=== PATIENT | female | born 1975 | race Caucasian/White ===

== ENCOUNTER 2020-05-14 15:15 | Outpatient (REF) | payer MEDICARE, MEDICAID, SELFPAY | END 2020-05-14 15:16 | disposition home or self-care (01) | LOC: HO.LAB 15:15 | PROVIDERS: PCP Internal Medicine; Visit Provider Internal Medicine | DX: Z20.828 Contact with and (suspected) exposure to other viral communicable diseases (principal) | CPT/HCPCS: 87635 ==

== ENCOUNTER 2020-05-22 07:16 | Outpatient (REF) | payer MEDICARE, MEDICAID, SELFPAY ==
--- NOTE | 2020-05-22 07:22 | CT_ITS ---
EXAMINATION: CT SINUS WITHOUT CONTRAST CLINICAL INFORMATION: Chronic sinusitis. COMPARISON: None. TECHNIQUE: Axial 2 mm thin and reformatted 2 minutes in sagittal coronal images of sinuses were obtained without contrast. This CT examination was performed using dose optimization techniques as appropriate, variously including the following: *Automated exposure control *Adjustment of mA and/or kV according to patient size (this includes techniques or standardized protocols for targeted exams where dose is matched to indication/reason for exam; i.e. extremities or head) *Use of iterative reconstruction technique DLP: 92 mGy-cm. FINDINGS: The paranasal sinuses are well aerated and clear. Bilateral ostiomeatal complex and frontoethmoidal recesses are widely patent. There is minimal radha bullosa of bilateral middle turbinates. Mild paradoxical left middle toe but it is noted. There is mild deviation of nasal septum to the right with a small bony spur. The nasal cavity and the nasopharyngeal airway is widely patent. ADDITIONAL RELEVANT FINDINGS: The TMJs articulate normally. There is mild spurring along the left lateral mandibular condyle and TM joint from degenerative changes. The orbits and skull base soft tissues are unremarkable. The middle ear cavities and mastoid air cells are clear. Limited evaluation demonstrates no acute intracranial findings. CT/CT sinus wo con IMPRESSION: Clear sinuses. Mild deviation of nasal septum to the right with a small bony spur. Paradoxical left middle turbinate and mild radha bullosa of bilateral middle turbinates.
== END 2020-05-22 07:17 | disposition home or self-care (01) ==
LOC: HO.CT 07:16
PROVIDERS: Visit Provider Internal Medicine
DX: J32.9 Chronic sinusitis, unspecified (principal)
CPT/HCPCS: 70486

== ENCOUNTER 2020-09-24 10:11 | Outpatient (REF) | payer MEDICARE, MEDICAID, SELFPAY ==
--- NOTE | ~2020-09-24 | XR_ITS ---
EXAMINATION: XR ANKLE, RIGHT CLINICAL INFORMATION: Pain in the ankle COMPARISON: 02/28/2019 TECHNIQUE: AP, lateral, and mortise views of the right ankle. FINDINGS: No fracture or dislocation. The ankle mortise is congruent. No ankle joint effusion. The soft tissues are unremarkable. Small plantar heel spur which is similar to prior. XR/XR ankle RT 2V IMPRESSION: No acute abnormality. Small plantar heel spur.
== END 2020-09-24 10:12 | disposition home or self-care (01) ==
LOC: HO.XRAY 10:11
PROVIDERS: PCP Internal Medicine; Visit Provider Internal Medicine
DX: M25.571 Pain in right ankle and joints of right foot (principal)
CPT/HCPCS: 73600

== ENCOUNTER 2021-01-03 20:34 | Emergency (ER) | payer MEDICARE, MEDICAID, SELFPAY ==
--- NOTE | ~2021-01-03 | XR_ITS ---
EXAMINATION: XR CHEST CLINICAL INFORMATION: Left chest wall pain. COMPARISON: None TECHNIQUE: 2 views of the chest were obtained. FINDINGS: No significant abnormality is noted involving the heart, lungs, mediastinum, bony thorax or soft tissues. XR/XR chest 2V IMPRESSION: Unremarkable chest examination.
[2021-01-03 21:05] VITALS: BP 119/48; PULSE 86; RESP 18; TEMP 36.6; O2SAT 97; BMI 32.3
--- NOTE | 2021-01-03 22:48 | ED.GENADULT ---
HPI - General Adult General Chief complaint: General Medical Stated complaint: back pain Time Seen by Provider: 01/03/21 21:58 Source: patient Mode of arrival: ambulatory History of Present Illness HPI narrative: This is a 45-year-old female with chronic fibromyalgia who presents with left shoulder blade pain that she states feels like a muscle spasm and she has had multiple attempts by her chiropractor to resolve some of the spasm. She states the pain started on Thursday and she has tried her muscle spasm medications that she has been prescribed without success as well as [id number] Tylenol/ibuprofen. Patient states that the pain became much worse this afternoon and has not been associated with fever, chills, nausea, vomiting, abdominal pain, but states she has had some urinary burning. Related Data Home Medications Medication Instructions Recorded Confirmed butalbital 50 mg-acetaminophen 300 cap PO 10/10/20 mg-caffeine 40 mg-codeine 30 mg cap clonazepam 0.5 mg tablet 0.5 mg PO BEDTIME 10/10/20 ibuprofen 800 mg tablet 800 mg PO TID PRN 10/10/20 Previous Rx's Medication Instructions Recorded cyclobenzaprine 10 mg tablet 10 mg PO BEDTIME #90 tab 07/16/20 varenicline 0.5 mg (11)-1 mg (42) See Rx Instructions PO PER PKG DIR 07/16/20 tablets in a dose pack #53 ea Allergies Allergy/AdvReac Type Severity Reaction Status Date / Time topiramate [From TOPAMAX] Allergy Mild NAUSEA & Verified 12/18/20 13:29 VOMITING divalproex sodium AdvReac Unknown NAUSEA & Verified 12/18/20 13:29 [From DEPAKOTE] VOMITING Review of Systems Review of Systems: Pertinent positives and negatives as stated in HPI 10 point review of systems is otherwise negative. [facility] Past Medical History Source: nursing notes reviewed Medical History Anxiety Fibromyalgia Migraine Restless leg syndrome Surgical History H/O LEEP H/O rectal polypectomy History of colectomy History of hernia repair History of surgery History of tonsillectomy History of umbilical hernia repair History of wisdom tooth extraction Family History Family History Father CVD (cardiovascular disease) Myocardial infarction Mother Seizure Dementia Chronic mental illness Sister In good health Son In good health Social History Social History Alcohol intake: never Years Smoked: 15 Advance Directives: No Advance Directives Information Provided: Yes Patient : No Physical Exam Vital Signs: Vital Signs: Last Vital Signs Temp 97.8 F 01/03/21 21:05 Pulse 84 01/03/21 23:41 Resp 16 01/03/21 23:41 BP 110/42 L 01/03/21 23:41 Pulse Ox 100 01/03/21 23:41 Body Mass Index 32.3 VITAL SIGNS: Reviewed. GENERAL: Well developed, well nourished, in no acute distress. HEAD: Normocephalic/atraumatic EYES: PERRLA, EOMI OROPHARYNX: no oral lesions noted, posterior pharynx clear LUNGS: Normal breath sounds. No adventitious sounds or accessory muscle use. SpO2<97> CARDIOVASCULAR: Regular rate and rhythm without noted murmurs ABDOMEN: Soft, non-tender, non-distended with bowel sounds. BACK: No CVA tenderness, spasm noted along the inferior aspect of the left scapula, but no noted decrease in range of motion at the left shoulder. NEUROLOGIC: Alert and oriented x 4. Course Course Course Narrative: 45-year-old female with history and clinical presentation consistent with muscle spasm and doubt any pneumonia, shoulder dislocation. Will check urine and obtain a chest x-ray as well as provide combination analgesics. Review of all investigations negative for any acute findings, these results were discussed with the patient at bedside and on re-evaluation she has had improvement of her discomfort. She was discharged home in stable condition with instructions to follow-up with her primary care provider. Medical Decision Making Lab Data Labs: Lab Results 01/03/21 01/03/21 Range/Units 22:53 22:53 Urine Color STRAW Urine Appearance CLEAR Urine pH 6.5 (5.0-8.0) Ur Specific [place] <= 1.005 (1.005-1.025) Urine Protein NEG (NEG-TRACE) MG/DL Urine Glucose (UA) NEG (NEG) MG/DL Urine Ketones NEG (NEG) MG/DL Urine Blood NEG (NEG) Urine Nitrite NEG (NEG) Ur Leukocyte Esterase NEG (NEG) Urine Test NEGATIVE (NEGATIVE) Discharge Plan Discharge Clinical Impression: Muscle spasm Patient Disposition: Home, Self-Care Instructions: Muscle Spasm (ED) Additional Instructions: 1. Resume all home medications as prescribed. 2. Tylenol 1000 mg, orally, every 6 hours as needed for pain control. Do not exceed 4000 mg within 24 hours. 3. Ibuprofen 400 mg, orally with milk or food, every 6 hours as needed for pain control. You may take this medication in combination with the Tylenol for additional symptom relief. 4. Lidocaine patch, these are available [id number] and should be apply to area of maximal pain as directed on the outside packaging. 5. Please continue to stretch that muscle to help relieve the spasm. 6. Please follow-up with primary care provider in the next 2-3 days for re-evaluation. Return to the ER for any acute worsening of symptoms. Prescriptions: No Action cyclobenzaprine 10 mg tablet 10 mg PO BEDTIME Qty: 90 RF: 8 Chantix Starting Month Box 0.5 mg (11)- 1 mg (42) tablets,dose pack See Rx Instructions PO PER PKG DIR Qty: 53 RF: 4 clonazepam 0.5 mg tablet 0.5 mg PO BEDTIME RF: 0 ibuprofen 800 mg tablet 800 mg PO TID PRNRF: 0 [id number] [id number] mg capsule PO RF: 0 Referrals: Vidal Méndez MD [Primary Care Provider] - 2 days (Left scapular muscle spasm)
[2021-01-03 23:02] LABS: Glucose Urine UA NEG (NEG); Leukocyte Esterase Urine NEG (NEG); Nitrite Urine NEG (NEG); PH 6.5 (5.0-8.0); Specific Gravity - Urine <= 1.005 (1.005-1.025); Urine Blood NEG (NEG); Urine Ketones NEG (NEG); Urine Protein NEG (NEG-TRACE)
[2021-01-03 23:03] LABS: Appearance Urine CLEAR; Color Urine STRAW
[2021-01-03] MEDS: Ketorolac Tromethamine 15 MG/ML VIAL IM (23:03)
[2021-01-03] MEDS: Acetaminophen 325 MG TABLET 975 MG PO (23:03)
[2021-01-03] MEDS: Lidocaine 4 % Patch ADH..PATCH 1 PATCH TRANSDERMA (23:04)
[2021-01-03 23:06] LABS: UPreg QC Valid YES; Urine Pregnancy NEGATIVE (NEGATIVE)
[2021-01-03 23:41] VITALS: BP 110/42; PULSE 84; RESP 16; O2SAT 100
== END 2021-01-04 00:05 | disposition home or self-care (01) ==
PROVIDERS: Emergency Provider Student in an Organized Health Care Education/Training Program; PCP Internal Medicine
DX: M62.838 Other muscle spasm (principal); R07.89 Other chest pain; M79.7 Fibromyalgia; Z79.899 Other long term (current) drug therapy
CPT/HCPCS: 71046; 81003; 81025; 96372; 99284; J1885

== ENCOUNTER 2021-02-04 12:34 | Outpatient (REF) | payer MEDICARE, MEDICAID, SELFPAY ==
[2021-02-04 17:52] LABS: Glucose Urine UA NEG (NEG); Leukocyte Esterase Urine NEG (NEG); Nitrite Urine NEG (NEG); Specific Gravity - Urine <= 1.005 (1.005-1.025); Urine Blood 1+ (NEG); Urine Ketones NEG (NEG); Urine Protein NEG (NEG-TRACE)
[2021-02-04 17:56] LABS: Appearance Urine CLEAR; Color Urine YELLOW
[2021-02-04 18:07] LABS: Squamous Epithelial Cell Urine 2+ /LPF; WBC Urine 0 /HPF (0-4)
== END 2021-02-04 12:35 | disposition home or self-care (01) ==
LOC: HO.LAB 12:34
PROVIDERS: PCP Internal Medicine; Visit Provider Internal Medicine
DX: R30.9 Painful micturition, unspecified (principal)
CPT/HCPCS: 81001; 81003

== ENCOUNTER 2021-05-10 15:14 | Outpatient (REF) | payer MEDICARE, MEDICAID, SELFPAY ==
--- NOTE | ~2021-05-10 | MR_ITS ---
EXAMINATION: MR CERVICAL SPINE WITHOUT CONTRAST CLINICAL INFORMATION: Cervical myelopathy. Bilateral hyperreflexia and weakness. COMPARISON: None available. TECHNIQUE: MRI of the cervical spine was performed using routine sequences without contrast. FINDINGS: The cervical vertebral bodies maintain normal heights and alignment. No bone marrow edema is seen. There is mild disc height loss at C5-C6 and C6-C7. The cervical cord signal appears normal. The spinal canal appears capacious. The imaged portions of the intracranial contents appear normal. The extraspinal soft tissues appear normal. SPINAL LEVELS: C2-C3: No posterior disc abnormality. Mild to moderate left facet arthropathy. No spinal canal or neural foraminal stenosis. C3-C4: No posterior disc abnormality. Moderate left facet arthropathy. No spinal canal or neural foraminal stenosis. C4-C5: No posterior disc abnormality. No spinal canal or neural foraminal stenosis. C5-C6: Disc bulging with mild facet arthropathy. No spinal canal or neural foraminal stenosis. C6-C7: Disc osteophyte complex asymmetric to the right causing mild flattening of the ventral thecal sac. No spinal canal or neural foraminal stenosis. C7-T1: No posterior disc abnormality. No spinal canal or neural foraminal stenosis. MR/MR cervical spine wo con IMPRESSION: Mild degenerative spondylosis including at C5-C6 and C6-C7 but without significant narrowing of the spinal canal or neural foramina. No cord signal abnormality.
== END 2021-05-10 15:15 | disposition home or self-care (01) ==
LOC: HO.MRI 15:14
PROVIDERS: Visit Provider Psychiatry & Neurology Neurology
DX: G95.9 Disease of spinal cord, unspecified (principal)
CPT/HCPCS: 72141

== ENCOUNTER 2021-05-31 17:57 | Outpatient (REF) | payer MEDICARE, MEDICAID, SELFPAY ==
--- NOTE | ~2021-05-31 | MR_ITS ---
EXAMINATION: MR LUMBAR SPINE WITHOUT CONTRAST CLINICAL INFORMATION: Lumbar radiculopathy. COMPARISON: MRI scan of the lumbar spine 03/18/2016. CT scan of the lumbar spine 08/09/2019. TECHNIQUE: MRI of the lumbar spine was obtained using routine sequences without contrast. FINDINGS: VERTEBRAL BODIES AND PARASPINAL STRUCTURES: There is anatomic alignment of the vertebral bodies. There is mild narrowing of intervertebral disc height at L4-L5 with loss of signal. Vertebral body heights are maintained, and no fractures are demonstrated. Overall, marrow signal is homogenous. The visualized retroperitoneal structures are unremarkable. The study partially redemonstrates right adnexal cysts. CONUS MEDULLARIS AND CAUDA EQUINA: Normal, terminating at the level of L1-L2. The lower thoracic spinal cord has normal signal. The cauda equina nerve roots appear normal. The study redemonstrates mild fatty signal in a non-thickened filum terminale. SPINAL LEVELS: L1-L2: The facet joints appear normal. Disc contour is normal. There is no central stenosis or foraminal narrowing. L2-L3: There is mild bilateral facet arthropathy. Disc contour is normal. There is no central stenosis or foraminal narrowing. L3-L4: There is mild bilateral facet arthropathy. Disc contour is normal. There is no central stenosis or foraminal narrowing. L4-L5: There is mild to moderate bilateral facet arthropathy, not significantly changed compared to prior imaging. There is a small diffuse disc bulge with an annular fissure with mild flattening of the ventral thecal sac. The neural foramina are patent and there is no central stenosis. L5-S1: There is moderate bilateral facet arthropathy. Posterior disc contour is normal. There is no central stenosis and the neural foramina are patent bilaterally. MR/MR lumbar spine wo con IMPRESSION: 1. The study redemonstrates facet arthropathy at L4-L5 and there is a diffuse disc bulge with mild flattening of the ventral thecal sac. There is no central stenosis or foraminal narrowing. Mild facet arthropathic changes are demonstrated at other levels as described above. 2. The study redemonstrates partially visualized right adnexal cysts.
== END 2021-05-31 17:58 | disposition home or self-care (01) ==
LOC: HO.MRI 17:57
PROVIDERS: Visit Provider Psychiatry & Neurology Neurology
DX: M54.16 Radiculopathy, lumbar region (principal)
CPT/HCPCS: 72148

== ENCOUNTER 2021-08-08 11:24 | Outpatient (REF) | payer MEDICARE, MEDICAID, SELFPAY ==
--- NOTE | ~2021-08-08 | XR_ITS ---
EXAMINATION: XR DORSAL SPINE CLINICAL INFORMATION: Dorsalis COMPARISON: 2013 TECHNIQUE: Frontal lateral and swimmer's view. FINDINGS: Mild spondylosis is evident by narrowing of disc spaces and developed small osteophyte from the edges of endplates. There is no evidence of fracture or dislocation. The vertebral bodies maintain normal height and alignment. The paravertebral soft tissues are unremarkable. Included adjacent lungs are clear. XR/XR thoracic spine 2V IMPRESSION: No fracture Narrowing of intervertebral disc spaces suggest underlying degenerative disc disease.
== END 2021-08-08 11:25 | disposition home or self-care (01) ==
LOC: HO.XRAY 11:24
PROVIDERS: PCP Internal Medicine; Visit Provider Internal Medicine
DX: M54.9 Dorsalgia, unspecified (principal)
CPT/HCPCS: 72070

== ENCOUNTER 2021-08-19 18:01 | Outpatient (REF) | payer MEDICARE, MEDICAID, SELFPAY ==
--- NOTE | ~2021-08-19 | MR_ITS ---
EXAMINATION: MR THORACIC SPINE WITHOUT CONTRAST CLINICAL INFORMATION: Dorsalgia, unspecified. COMPARISON: None TECHNIQUE: MRI of the thoracic spine was obtained using routine sequences without contrast. FINDINGS: The thoracic vertebral bodies maintain normal heights and alignment. Mild disc height loss is seen within the mid thoracic spine. No bone marrow edema is seen. The thoracic cord signal appears normal. A small left paracentral protrusion is seen at T7-T8. No other disc herniation is seen. The thoracic spinal canal and neural foramina are widely patent. The extraspinal soft tissues are unremarkable. MR/MR thoracic spine wo con IMPRESSION: No significant abnormality in the thoracic spine. No spinal canal or neural foraminal stenosis.
== END 2021-08-19 18:02 | disposition home or self-care (01) ==
LOC: HO.MRI 18:01
PROVIDERS: Visit Provider Internal Medicine
DX: M54.9 Dorsalgia, unspecified (principal)
CPT/HCPCS: 72146

== ENCOUNTER 2021-09-28 07:38 | Outpatient (REF) | payer MEDICARE, MEDICAID, SELFPAY ==
[2021-09-28 11:20] LABS: Hematocrit 42.1 % (37.0-47.0); Hemoglobin 13.7 g/dl (12.0-16.0); Mean Corpuscular HGB Conc 32.5 g/dl (31.0-35.0); Mean Corpuscular Hemoglobin 29.7 pg (27.0-33.0); Mean Corpuscular Volume 91.3 fL (80.0-98.0); Mean Platelet Volume 9.6 fL (9.4-12.3); Platelet Count 341 X10*3/uL (160-400); Red Blood Count 4.61 X10*6/uL (4.20-5.50); White Blood Count 8.3 X10*3/uL (4.8-10.8)
[2021-09-28 11:23] LABS: Alanine Aminotransferase 10 U/L (0-31); Alkaline Phosphatase 74 U/L (39-117); Anion Gap 10 (12-20); Aspartate Amino Transferase 9 U/L (5-31); Bilirubin Total 0.4 mg/dL (0.0-1.0); Blood Urea Nitrogen 11 mg/dL (9-16); Calcium 9.3 mg/dL (8.4-10.2); Carbon Dioxide 24 mmol/L (22-29); Chloride 106 mmol/L (96-108); Cholesterol 277 mg/dL; Estimated Glomerular Filt Rate > 60; Glucose Fasting 93 mg/dL (60-99); HDL Cholesterol 43 mg/dL; LDL Cholesterol Calculated 203 mg/dl; Potassium 4.2 mmol/L (3.3-5.1); Sodium 136 mmol/L (135-145); Total Protein 6.2 g/dL (6.5-8.0); Triglycerides 158 mg/dL
[2021-09-28 11:31] LABS: Estimated Average Glucose 103 mg/dL; Hemoglobin A1c % 5.2 %
[2021-09-28 11:48] LABS: TSH reflex Free T4 0.61 uIU/mL (0.32-4.0)
[2021-09-30 04:35] LABS: HBS Num1 0.04 mIU/mL (0-7.99); HBc Num1 0.08 S/CO (0.00-0.79); Hepatitis B Core Antibody Nonreactive (Nonreactive); ~Hepatitis B Surface Antibody NONREACTIVE (Nonreactive)
[2021-09-30 04:42] LABS: Hepatitis B Surface Antigen Negative (Negative)
[2021-09-30 17:46] LABS: Rubella IgG Antibody 1.44 Index; Rubeola IgG (Measles) <13.50 AU/mL; Varicella IgG Antibody <135.00 index
== END 2021-09-28 07:39 | disposition home or self-care (01) ==
LOC: HO.HMGCLDS 07:38
PROVIDERS: Visit Provider Physician Assistant
DX: Z01.84 Encounter for antibody response examination (principal); Z13.29 Encounter for screening for other suspected endocrine disorder; Z13.220 Encounter for screening for lipoid disorders
CPT/HCPCS: 36415; 80053; 80061; 83036; 84443; 85027; 86704; 86706; 86735; 86762; 86765; 86787; 87340

== ENCOUNTER 2021-09-30 07:35 | Outpatient (REF) | payer MEDICARE, MEDICAID, SELFPAY ==
[2021-10-02 18:51] LABS: TS Negative Control Passed; TS Panel A 1; TS Panel B 3; TS Positive Control Passed; TSpotTB Negative (Negative)
== END 2021-09-30 07:36 | disposition home or self-care (01) ==
LOC: HO.HMGCLDS 07:35
PROVIDERS: Visit Provider Physician Assistant
DX: Z01.84 Encounter for antibody response examination (principal)
CPT/HCPCS: 36415; 86481

== ENCOUNTER 2021-11-05 16:25 | Outpatient (REF) | payer MEDICARE, MEDICAID, SELFPAY ==
[2021-11-05 16:35] LABS: MANUAL DIFF FLAG NO
[2021-11-05 16:59] LABS: Basophils Percent Auto 0.4 % (0-2); Eosinophils Absolute Auto 0.1 X10*3/uL (0.0-0.4); Eosinophils Percent Auto 0.7 % (0-4); Hematocrit 42.7 % (37.0-47.0); Hemoglobin 14.4 g/dl (12.0-16.0); Imm Gran Abs Auto 0.04 X10*3/uL (0.00-0.03); Imm Gran Pct Auto 0.4 % (0.0-0.4); Lymphocytes Absolute Auto 3.2 X10*3/uL (1.2-4.9); Lymphocytes Percent Auto 29.6 % (20-40); Mean Corpuscular HGB Conc 33.7 g/dl (31.0-35.0); Mean Corpuscular Hemoglobin 30.4 pg (27.0-33.0); Mean Corpuscular Volume 90.3 fL (80.0-98.0); Mean Platelet Volume 9.6 fL (9.4-12.3); Monocytes Absolute Auto 0.6 X10*3/uL (0.1-1.2); Monocytes Percent Auto 5.3 % (2-11); Neutrophils Absolute Auto 6.8 x10*3/uL (2.0-8.3); Neutrophils Percent Auto 63.6 % (45-73); Platelet Count 276 X10*3/uL (160-400); Red Blood Count 4.73 X10*6/uL (4.20-5.50); Red Cell Distribution Width 13.8 % (11.0-16.0); White Blood Count 10.7 X10*3/uL (4.8-10.8)
[2021-11-05 17:20] LABS: Alanine Aminotransferase 19 U/L (0-31); Albumin Level 4.5 g/dL (3.5-5.0); Alkaline Phosphatase 93 U/L (39-117); Anion Gap 11 (12-20); Aspartate Amino Transferase 13 U/L (5-31); Bilirubin Total 0.4 mg/dL (0.0-1.0); Blood Urea Nitrogen 7 mg/dL (9-16); Calcium 9.9 mg/dL (8.4-10.2); Carbon Dioxide 28 mmol/L (22-29); Chloride 104 mmol/L (96-108); Cholesterol 205 mg/dL; Estimated Glomerular Filt Rate > 60; Glucose Fasting 98 mg/dL (60-99); HDL Cholesterol 50 mg/dL; LDL Cholesterol Calculated 115 mg/dl; Potassium 4.1 mmol/L (3.3-5.1); Sodium 139 mmol/L (135-145); Total Protein 6.9 g/dL (6.5-8.0); Triglycerides 202 mg/dL
[2021-11-05 17:35] LABS: Thyroid Stimulating Hormone 1.46 uIU/mL (0.32-4.0)
[2021-11-05 17:40] LABS: TSH reflex Free T4 1.51 uIU/mL (0.32-4.0)
== END 2021-11-05 16:26 | disposition home or self-care (01) ==
LOC: HO.LAB 16:25
PROVIDERS: Internal Medicine; PCP Physician Assistant; Visit Provider Physician Assistant
DX: Z00.00 Encounter for general adult medical examination without abnormal findings (principal); E03.9 Hypothyroidism, unspecified; E78.5 Hyperlipidemia, unspecified
CPT/HCPCS: 36415; 80053; 80061; 84443; 85025

== ENCOUNTER 2022-02-04 09:21 | Outpatient (REF) | payer MEDICARE, MEDICAID, SELFPAY ==
--- NOTE | ~2022-02-04 | XR_ITS ---
EXAMINATION: XR ABDOMEN COMPLETE CLINICAL INDICATION: Diverticulitis of interest spine. COMPARISON: None TECHNIQUE: 2 views of the abdomen. FINDINGS: There is scattered stool and gas in the colon without distention. No organomegaly. No radiopaque calculi. No gross bony abnormality. XR/XR abdomen 3V IMPRESSION: Minimal constipation.
[2022-02-04 10:37] LABS: Hematocrit 39.6 % (37.0-47.0); Hemoglobin 13.1 g/dl (12.0-16.0); Mean Corpuscular HGB Conc 33.1 g/dl (31.0-35.0); Mean Corpuscular Hemoglobin 30.6 pg (27.0-33.0); Mean Corpuscular Volume 92.5 fL (80.0-98.0); Mean Platelet Volume 9.3 fL (9.4-12.3); Platelet Count 263 X10*3/uL (160-400); Red Blood Count 4.28 X10*6/uL (4.20-5.50); Red Cell Distribution Width 14.3 % (11.0-16.0); White Blood Count 10.2 X10*3/uL (4.8-10.8)
[2022-02-04 11:05] LABS: Anion Gap 12 (12-20); Blood Urea Nitrogen 12 mg/dL (9-16); Calcium 8.7 mg/dL (8.4-10.2); Carbon Dioxide 25 mmol/L (22-29); Chloride 105 mmol/L (96-108); Estimated Glomerular Filt Rate > 60; Glucose Random 85 mg/dL (60-115); Lipase 14 U/L (8-78); Potassium 4.3 mmol/L (3.3-5.1); Sodium 138 mmol/L (135-145)
[2022-02-04 13:13] LABS: Appearance Urine CLEAR; Color Urine YELLOW; Glucose Urine UA NEG (NEG); Leukocyte Esterase Urine NEG (NEG); Nitrite Urine NEG (NEG); PH 6.5 (5.0-8.0); Specific Gravity - Urine <= 1.005 (1.005-1.025); Urine Blood NEG (NEG); Urine Ketones NEG (NEG); Urine Protein NEG (NEG-TRACE)
[2022-02-06 14:46] LABS: CRP High Sensitivity >10.0 mg/L
== END 2022-02-04 09:22 | disposition home or self-care (01) ==
LOC: HO.LAB 09:21
PROVIDERS: PCP Physician Assistant; Visit Provider Physician Assistant
DX: K57.92 Diverticulitis of intestine, part unspecified, without perforation or abscess without bleeding (principal); R30.0 Dysuria
CPT/HCPCS: 36415; 74021; 80048; 81003; 83690; 85027; 86141

== ENCOUNTER 2022-02-19 08:33 | Outpatient (REF) | payer MEDICARE, MEDICAID, SELFPAY ==
[2022-02-19 09:58] LABS: Leukocytes Stool Qualitative NEGATIVE (NEGATIVE)
== END 2022-02-19 08:34 | disposition home or self-care (01) ==
LOC: HO.LNP 08:33
PROVIDERS: Visit Provider Internal Medicine
DX: R19.7 Diarrhea, unspecified (principal)
CPT/HCPCS: 89055

== ENCOUNTER 2022-04-11 13:11 | Outpatient (REF) | payer OTHER, MEDICARE, MEDICAID, SELFPAY ==
--- NOTE | ~2022-04-11 | XR_ITS ---
EXAMINATION: XR ANKLE, LEFT CLINICAL INFORMATION: M25.572 - Pain in left ankle and joints of left foot COMPARISON: Radiographs left ankle and foot 02/28/2019 TECHNIQUE: AP, lateral, and mortise views of the left ankle. FINDINGS: No fracture or dislocation. Plantar calcaneal spurring. Subtalar joint unremarkable. Ankle mortise is symmetric. The malleoli appear intact. Mild spurring and medial aspect medial malleolus stable from prior radiographs 2019. No visible ankle capsular effusion. XR/XR ankle LT min 3V IMPRESSION: No fracture or arthropathy. Chronic plantar calcaneal spur.
--- NOTE | ~2022-04-11 | XR_ITS ---
EXAMINATION: XR WRIST, LEFT CLINICAL INFORMATION: M25.532 - Pain in left wrist. COMPARISON: Radiographs left breast 11/02/2013 TECHNIQUE: PA, lateral, and oblique views of the left wrist. FINDINGS: No fracture or dislocation. Normal bony mineralization. Pronator quadratus fat pad normal. No joint narrowing or erosive change. XR/XR wrist LT min 3V IMPRESSION: Normal left wrist.
== END 2022-04-11 13:12 | disposition home or self-care (01) ==
LOC: HO.HMGCX 13:11
PROVIDERS: PCP Physician Assistant
DX: M25.532 Pain in left wrist (principal); M25.572 Pain in left ankle and joints of left foot
CPT/HCPCS: 73110; 73610

== ENCOUNTER 2022-08-08 09:20 | Outpatient (REF) | payer MEDICARE, MEDICAID, SELFPAY ==
[2022-08-08 10:43] LABS: Hematocrit 44.1 % (37.0-47.0); Hemoglobin 14.5 g/dl (12.0-16.0); Mean Corpuscular HGB Conc 32.9 g/dl (31.0-35.0); Mean Corpuscular Hemoglobin 30.6 pg (27.0-33.0); Mean Platelet Volume 9.4 fL (9.4-12.3); Platelet Count 322 X10*3/uL (160-400); Red Blood Count 4.74 X10*6/uL (4.20-5.50); Red Cell Distribution Width 14.3 % (11.0-16.0); White Blood Count 16.8 X10*3/uL (4.8-10.8)
[2022-08-08 11:30] LABS: Alanine Aminotransferase 19 U/L (0-31); Albumin Level 4.3 g/dL (3.5-5.0); Alkaline Phosphatase 66 U/L (39-117); Anion Gap 11 (12-20); Aspartate Amino Transferase 11 U/L (5-31); Bilirubin Total 0.2 mg/dL (0.0-1.0); Blood Urea Nitrogen 16 mg/dL (9-16); Calcium 9.5 mg/dL (8.4-10.2); Carbon Dioxide 28 mmol/L (22-29); Chloride 103 mmol/L (96-108); Estimated Glomerular Filt Rate > 60; Glucose Random 69 mg/dL (60-115); Sodium 138 mmol/L (135-145); Total Protein 6.5 g/dL (6.5-8.0)
[2022-08-08 11:35] LABS: TSH reflex Free T4 0.97 uIU/mL (0.32-4.0)
[2022-08-08 11:39] LABS: Influenza A PCR NEGATIVE (Negative); Influenza B PCR NEGATIVE (Negative); Resp Syncy Virus RNA Qual PCR NEGATIVE (Negative); SARS COV2 PCR INHOUSE NEGATIVE (Negative)
== END 2022-08-08 09:21 | disposition home or self-care (01) ==
LOC: HO.10HDL 09:20
PROVIDERS: Visit Provider Nurse Practitioner Family
DX: R50.9 Fever, unspecified (principal); J02.9 Acute pharyngitis, unspecified; R53.83 Other fatigue; Z13.29 Encounter for screening for other suspected endocrine disorder; Z20.822 Contact with and (suspected) exposure to COVID-19
CPT/HCPCS: 0241U; 36415; 80053; 84443; 85027

== ENCOUNTER 2022-08-08 10:40 | Outpatient (REF) | payer MEDICARE, MEDICAID, SELFPAY | END 2022-08-08 10:41 | disposition home or self-care (01) | LOC: HO.LAB 10:40 | PROVIDERS: PCP Physician Assistant; Visit Provider Nurse Practitioner Family | DX: Z13.89 Encounter for screening for other disorder (principal) ==

== ENCOUNTER 2022-08-22 11:05 | Outpatient (REF) | payer MEDICARE, MEDICAID, SELFPAY ==
--- NOTE | ~2022-08-22 | XR_ITS ---
EXAMINATION: XR CHEST CLINICAL INFORMATION: R06.2 - Wheezing COMPARISON: Chest radiographs 01/03/2021, 08/10/2019. CT abdomen 11/30/2019 TECHNIQUE: 2 views of the chest were obtained. FINDINGS: No hyperinflation. No airspace consolidation or groundglass opacity or effusion. The costophrenic sulci are clear. The heart is normal in size. There is tapering at the right cardiophrenic angle consistent with areolar tissue on CT. The hilar contours and visualized bony structures are unremarkable. XR/XR chest 2V IMPRESSION: Lungs clear. No hyperinflation, infiltrate, or effusion.
== END 2022-08-22 11:06 | disposition home or self-care (01) ==
LOC: HO.HMGCX 11:05
PROVIDERS: PCP Physician Assistant; Visit Provider Internal Medicine
DX: R06.2 Wheezing (principal)
CPT/HCPCS: 71046

== ENCOUNTER 2022-11-20 00:14 | Emergency (ER) | payer MEDICARE, MEDICAID, SELFPAY ==
--- NOTE | ~2022-11-20 | CT_ITS ---
EXAMINATION: CT ABDOMEN AND PELVIS WITH CONTRAST CLINICAL INFORMATION: Left lower quadrant pain COMPARISON: 09/02/2019 TECHNIQUE: Multidetector volumetric images were obtained from the superior aspect of the liver through the pubic symphysis following administration 85 mL of Omnipaque 350 intravenous contrast. Sagittal and coronal reformatted images were obtained on the technologist's workstation. Oral contrast: No This CT examination was performed using dose optimization techniques as appropriate, variously including the following: *Automated exposure control *Adjustment of mA and/or kV according to patient size (this includes techniques or standardized protocols for targeted exams where dose is matched to indication/reason for exam; i.e. extremities or head) *Use of iterative reconstruction technique DLP: 658 mGy-cm FINDINGS: LUNG BASES: The visualized lung bases are unremarkable. LIVER, GALLBLADDER, AND BILIARY TREE: The liver is normal in size, shape, and attenuation. No focal hepatic lesion or biliary ductal dilatation is present. The gallbladder is unremarkable with no evidence of radiopaque gallstones, gallbladder wall thickening, or obvious pericholecystic inflammatory changes. PANCREAS: Unremarkable. SPLEEN: Unremarkable. ADRENAL GLANDS: Unremarkable. KIDNEYS AND URETERS: The kidneys are normal in size, shape, and attenuation. Duplicated left renal collecting system. No hydronephrosis, hydroureter, or obstructing calculi seen. No perinephric stranding. BLADDER: Mildly distended and grossly unremarkable. GASTROINTESTINAL TRACT: Suture line is present in the distal sigmoid colon. Colonic diverticulosis is noted. The small and large bowel are otherwise unremarkable without evidence of obstruction or pericolonic inflammatory change. The appendix is unremarkable. No free fluid or free air is seen. ABDOMINAL WALL: Evidence of prior ventral hernia repair, without significant change from prior. LYMPH NODES: Normal. VASCULAR: Unremarkable. PELVIC VISCERA: There is a simple-appearing right adnexal cyst measuring up to 5.0 cm, mildly increased from 08/23/2019. Findings are overwhelmingly likely to represent a benign functional cyst. No follow-up imaging recommended. OSSEOUS STRUCTURES: Unremarkable. CT/CT abdomen pelvis w IV con IMPRESSION: No acute findings identified in the abdomen/pelvis. Colonic diverticulosis without diverticulitis.
[2022-11-20 00:15] VITALS: BP 145/66; PULSE 88; RESP 18; TEMP 35.9; O2SAT 98; BMI 23.6
[2022-11-20 01:49] LABS: MANUAL DIFF FLAG NO
[2022-11-20 01:50] LABS: Basophils Absolute Auto 0.1 X10*3/uL (0.0-0.2); Basophils Percent Auto 0.4 % (0-2); Eosinophils Absolute Auto 0.1 X10*3/uL (0.0-0.4); Eosinophils Percent Auto 0.9 % (0-4); Hematocrit 44.5 % (37.0-47.0); Hemoglobin 15.2 g/dl (12.0-16.0); Imm Gran Abs Auto 0.04 X10*3/uL (0.00-0.03); Imm Gran Pct Auto 0.3 % (0.0-0.4); Lymphocytes Absolute Auto 3.9 X10*3/uL (1.2-4.9); Lymphocytes Percent Auto 32.7 % (20-40); Mean Corpuscular HGB Conc 34.2 g/dl (31.0-35.0); Mean Corpuscular Volume 90.8 fL (80.0-98.0); Mean Platelet Volume 9.5 fL (9.4-12.3); Monocytes Absolute Auto 0.6 X10*3/uL (0.1-1.2); Monocytes Percent Auto 5.1 % (2-11); Neutrophils Absolute Auto 7.2 x10*3/uL (2.0-8.3); Neutrophils Percent Auto 60.6 % (45-73); Platelet Count 309 X10*3/uL (160-400); Red Cell Distribution Width 14.6 % (11.0-16.0); White Blood Count 11.9 X10*3/uL (4.8-10.8)
[2022-11-20 01:51] LABS: Appearance Urine Clear; Color Urine Dark Yellow; Glucose Urine UA Negative (Negative); Leukocyte Esterase Urine Trace (Negative); Nitrite Urine Negative (Negative); PH 6.5 (5.0-9.0); Specific Gravity - Urine 1.025 (1.005-1.025); UMIC TRIGGER UACC YES; Urine Blood Negative (Negative); Urine Ketones 40 mg/dL (Negative); Urine Protein 30 (1+) mg/dL (Neg-Trace)
[2022-11-20 01:56] LABS: Bacteria Urine None Seen (None Seen); Hyaline Casts Urine 0-2 /LPF (0-2); Squamous Epithelial Cell Urine 0-2 /HPF (0-2); WBC Urine 0-5 /HPF (0-5)
[2022-11-20 02:06] LABS: Anion Gap 13 (12-20); Blood Urea Nitrogen 9 mg/dL (9-16); Calcium 9.4 mg/dL (8.4-10.2); Carbon Dioxide 25 mmol/L (22-29); Chloride 107 mmol/L (96-108); Creatinine Clr Calc Pharmacy 101.2; Estimated Glomerular Filt Rate > 60; Glucose Random 101 mg/dL (60-115); Potassium 3.6 mmol/L (3.3-5.1); Sodium 141 mmol/L (135-145)
[2022-11-20 02:07] VITALS: BP 146/59; PULSE 80; RESP 17; TEMP 36.7; O2SAT 95
--- NOTE | 2022-11-20 02:27 | ED.ABDPAIN ---
HPI - Abdominal Pain General Chief Complaint: Abdominal Pain Stated Complaint: chest pain, n/v Time Seen by Provider: 11/20/22 02:15 Source: patient Mode of arrival: ambulatory Limitations: no limitations History of Present Illness HPI narrative: Patient comes to the emergency room complaining of nausea and vomiting for 4 days, also complaining of left lower quadrant pain. Patient states that she has history of diverticulitis. Patient denies diarrhea, no URI or UTI symptoms. Related Data Home Medications Medication Instructions Recorded Confirmed clonazepam 0.5 mg tablet 0.5 mg PO BEDTIME 10/10/20 08/22/22 paroxetine HCl 20 mg tablet (Paxil) 20 mg PO DAILY 08/21/21 08/22/22 diclofenac sodium 75 mg 75 mg PO BID 04/14/22 08/22/22 tablet,delayed release Previous Rx's Medication Instructions Recorded cyclobenzaprine 10 mg tablet 10 mg PO BEDTIME #90 tabs 07/16/20 ipratropium bromide 21 mcg (0.03 2 spray intranasal BID #60 mL 12/02/21 %) nasal spray acetaminophen 650 mg 650 mg PO Q12H PRN pain 90 days 05/15/22 tablet,extended release (Tylenol #180 tabs Arthritis Pain) ibuprofen 800 mg tablet 800 mg PO Q8H PRN fever or pain 90 05/15/22 days #270 tabs azithromycin 250 mg tablet 250 mg PO ONCE 5 days #6 tabs 08/22/22 azithromycin 250 mg tablet 250 mg PO ONCE 5 days #6 tabs 08/22/22 prednisone 10 mg tablet 10 mg PO DAILY 5 days #5 tabs 08/22/22 prednisone 10 mg tablet 10 mg PO DAILY 7 days #7 tabs 08/22/22 loratadine 10 mg tablet 10 mg PO DAILY 90 days #90 tabs 10/02/22 amoxicillin 875 mg-potassium 1 tab PO BID 7 days #14 tabs 11/19/22 clavulanate 125 mg tablet ondansetron 4 mg disintegrating 4 mg PO Q6H PRN nausea and 11/20/22 tablet vomiting #14 tabs Allergies Allergy/AdvReac Type Severity Reaction Status Date / Time topiramate [From TOPAMAX] Allergy Mild NAUSEA & Verified 11/19/22 10:43 VOMITING divalproex sodium AdvReac Unknown NAUSEA & Verified 11/19/22 10:43 [From DEPAKOTE] VOMITING Review of Systems Review of Systems Constitutional : No Weight loss, No Fever, No Chills, No Night Sweats, No Fatigue, No Malaise ENT/Mouth : No Hearing loss, No Ear Pain, No Nasal Congestion, No Sinus Pain, No Hoarseness, No sore throat, No Rhinorrhea, No Swallowing Difficulty Eyes: No Eye Pain, No Swelling, No Redness, No Foreign Body, No Discharge, No Vision Changes Cardiovascular : No Chest Pain, No SOB, No Dyspnea on Exertion, No Orthopnea, No Edema, No Palpitations Respiratory : No Cough, No Sputum, No Wheezing, No Smoke Exposure, No Dyspnea Gastrointestinal : Complaining of nausea and vomiting No Diarrhea, No Constipation, complaining of epigastric and left lower quadrant pain, denies melena Genitourinary : no irregular bleeding, No Dysuria, No Urinary Frequency, No Hematuria, No Urinary Incontinence, No Urgency, No Flank Pain, No Urinary Flow Changes, No Hesitancy Musculoskeletal : No joint pain, No Myalgias, No Joint Swelling Skin : No Skin Lesions, No rash Neuro : No Weakness, No Numbness, No Paresthesias, No Loss of Consciousness, No Dizziness, No Headache Psych : No Anxiety/Panic, No Depression, No SI/HI/AH/VH, No Social Issues, Heme/Lymph: No Bruising, No Bleeding,No Lymphadenopathy Endocrine : No Polyuria, No Polydipsia, No Temperature Intolerance PMFSH Past Medical History Medical History Ankle pain, left Anxiety Fibromyalgia Migraine Obesity Restless leg syndrome Wrist pain, left Surgical History H/O LEEP H/O rectal polypectomy History of colectomy History of hernia repair History of surgery History of tonsillectomy History of umbilical hernia repair History of wisdom tooth extraction Family History Family History Father CVD (cardiovascular disease) Myocardial infarction Mother Seizure Dementia Chronic mental illness Myocardial infarction, Onset Age: 40 Sister In good health Son In good health Other Mental health disorder Social History Social History Housing: Apartment Alcohol intake: current Alcohol intake frequency: holidays/special occasions only Patient Tobacco Use Status: Current everyday Tobacco user Tobacco use type: Cigarette Cigarettes Per Day: 10 Years Smoked: 15 e-Cigarette/Vaping Use: Never Used Second Hand Smoke Exposure: No Advance Directives: No Advance Directives Information Provided: Yes service: No Current occupational status: disabled Cognitive needs: No Hearing needs: No Vision needs: No Physical Exam ED Vital Signs: Vital Signs - 24 hr 11/20/22 00:15 11/20/22 02:07 11/20/22 03:26 Temperature 96.7 F L 98.1 F 97.9 F Pulse Rate 88 80 88 Respiratory Rate 18 17 16 Blood Pressure 145/66 H 146/59 H 137/58 L Pulse Oximetry 98 95 99 Oxygen Delivery Method Room Air Room Air BMI result Body Mass Index 23.6 Const Other: Appearance: Alert. Oriented X3. No acute distress. Eyes: Pupils equal, round and reactive to light. ENT: Pharynx normal. Neck: Normal inspection. Neck supple. No lymph nodes noted. No crepitus CVS: Normal heart rate and rhythm. Pulses normal. Normal S1 and S2 Respiratory: No respiratory distress. Breath sounds normal. No Wheezing. No rales Abdomen: Soft , mild tenderness to palpation in left lower quadrant, no distension, no rebound or guarding Skin: Skin warm and dry. Normal skin color. Normal skin turgor. Extremities: No lower extremity edema. No Lacerations. No Rash Neuro: Oriented X 3. No motor deficit. No sensory deficit. Moving all extremities. No slurred speech. CN 2 through 12 grossly intact Psych: calm, cooperative, normal affect Course Course Course Narrative: Patient's labs and CT scan pending Medical Decision Making Medical Decision Making [facility] Narrative: -I discussed the labs and imaging on the patient, patient likely having a viral syndrome -my interpretation of CT scan, no obstruction, no diverticulitis or perforation Lab Data [facility] Lab Attestation statement: I reviewed the patient's lab results. 11/20/22 01:38 11/20/22 01:38 Labs: Lab Results 11/20/22 11/20/22 11/20/22 Range/Units 01:38 01:38 01:38 WBC 11.9 H (4.8-10.8) X10*3/uL RBC 4.90 (4.20-5.50) X10*6/uL Hgb 15.2 (12.0-16.0) g/dl Hct 44.5 (37.0-47.0) % MCV 90.8 (80.0-98.0) fL MCH 31.0 (27.0-33.0) pg MCHC 34.2 (31.0-35.0) g/dl RDW 14.6 (11.0-16.0) % Plt Count 309 (160-400) X10*3/uL MPV 9.5 (9.4-12.3) fL Immature Gran % (Auto) 0.3 (0.0-0.4) % Neut % (Auto) 60.6 (45-73) % Lymph % (Auto) 32.7 (20-40) % [place] % (Auto) 5.1 (2-11) % Eos % (Auto) 0.9 (0-4) % Baso % (Auto) 0.4 (0-2) % Lymph # (Auto) 3.9 (1.2-4.9) X10*3/uL [place] # (Auto) 0.6 (0.1-1.2) X10*3/uL Eos # (Auto) 0.1 (0.0-0.4) X10*3/uL Baso # (Auto) 0.1 (0.0-0.2) X10*3/uL Abs Immat Gran (auto) 0.04 H (0.00-0.03) X10*3/uL Absolute Neuts (auto) 7.2 (2.0-8.3) x10*3/uL Absolute Nucleated RBC 0.000 (0.0-0.012) X10*3/uL Nucleated RBC % (auto) 0.0 (0.0-0.2) /100WBC Sodium 141 (135-145) mmol/L Potassium 3.6 (3.3-5.1) mmol/L Chloride 107 (96-108) mmol/L Carbon Dioxide 25 (22-29) mmol/L Anion Gap 13 (12-20) BUN 9 (9-16) mg/dL Creatinine 0.71 (0.5-1.4) mg/dL Estim Creat Clear Calc 101.2 Estimated GFR > 60 Random Glucose 101 (60-115) mg/dL Calcium 9.4 (8.4-10.2) mg/dL Total Bilirubin 0.4 (0.0-1.0) mg/dL Direct Bilirubin 0.1 (0.0-0.5) mg/dL AST 14 (5-31) U/L ALT 15 (0-31) U/L Alkaline Phosphatase 92 (39-117) U/L Total Protein 6.7 (6.5-8.0) g/dL Albumin 4.5 (3.5-5.0) g/dL Lipase 16 (8-78) U/L Urine Color Dark Yellow Urine Appearance Clear Urine pH 6.5 (5.0-9.0) Ur Specific [place] 1.025 (1.005-1.025) Urine Protein 30 (1+) H (Neg-Trace) mg/dL Urine Glucose (UA) Negative (Negative) mg/dL Urine Ketones 40 (Negative) mg/dL Urine Blood Negative (Negative) Urine Nitrite Negative (Negative) Ur Leukocyte Esterase Trace H (Negative) Urine RBC 3-5 H (0-2) /HPF Urine WBC 0-5 (0-5) /HPF Ur Squamous Epith Cells 0-2 (0-2) /HPF Urine Bacteria None Seen (None Seen) Hyaline Casts 0-2 (0-2) /LPF Radiology Impression Discussion of test interpretation with radiology: I have reviewed the radiologist's reading. Radiologist Impression: FINDINGS: LUNG BASES: The visualized lung bases are unremarkable.? LIVER, GALLBLADDER, AND BILIARY TREE: The liver is normal in size, shape, and attenuation. No focal hepatic lesion or biliary ductal dilatation is present. The gallbladder is unremarkable with no evidence of radiopaque gallstones, gallbladder wall thickening, or obvious pericholecystic inflammatory changes.? PANCREAS: Unremarkable.? SPLEEN: Unremarkable.? ADRENAL GLANDS: Unremarkable.? KIDNEYS AND URETERS: The kidneys are normal in size, shape, and attenuation. Duplicated left renal collecting system. No hydronephrosis, hydroureter, or obstructing calculi seen. No perinephric stranding. BLADDER: Mildly distended and grossly unremarkable.? GASTROINTESTINAL TRACT: Suture line is present in the distal sigmoid colon. Colonic diverticulosis is noted. The small and large bowel are otherwise unremarkable without evidence of obstruction or pericolonic inflammatory change. The appendix is unremarkable. No free fluid or free air is seen. ABDOMINAL WALL: Evidence of prior ventral hernia repair, without significant change from prior.? LYMPH NODES: Normal. VASCULAR: Unremarkable. PELVIC VISCERA: There is a simple-appearing right adnexal cyst measuring up to 5.0 cm, mildly increased from 08/23/2019. Findings are overwhelmingly likely to represent a benign functional cyst. No follow-up imaging recommended. OSSEOUS STRUCTURES: Unremarkable. CT/CT abdomen pelvis w IV con IMPRESSION: No acute findings identified in the abdomen/pelvis. Colonic diverticulosis without diverticulitis. Medications Administered Discontinued Medications Generic Name Dose Route Start Last Admin Trade Name Freq PRN Reason Stop Dose Admin Iohexol 85 ml 11/20/22 03:08 11/20/22 03:08 Iohexol 350 Mg/Ml 100 Ml Infus..Btl IV 11/20/22 03:09 85 ml ONCE ONE Administration Discharge Plan Discharge Clinical Impression: Abdominal pain, Nausea & vomiting Patient Disposition: Home, Self-Care Instructions: Acute Nausea and Vomiting (ED) Additional Instructions: Please follow-up with your primary care physician tomorrow. If you have any worsening or new symptoms, please return to the emergency room or call 911 Prescriptions: New ondansetron 4 mg tablet,disintegrating 4 mg PO Q6H PRN (Reason: nausea and vomiting) Qty: 14 0RF No Action cyclobenzaprine 10 mg tablet 10 mg PO BEDTIME Qty: 90 8RF ipratropium bromide 21 mcg (0.03 %) spray,non-aerosol 2 spray intranasal BID Qty: 60 0RF loratadine 10 mg tablet 10 mg PO DAILY 90 Days Qty: 90 1RF clonazepam 0.5 mg tablet 0.5 mg PO BEDTIME ibuprofen 800 mg tablet 800 mg PO Q8H PRN (Reason: fever or pain) 90 Days Qty: 270 0RF acetaminophen [Tylenol Arthritis Pain] 650 mg tablet extended release 650 mg PO Q12H PRN (Reason: pain) 90 Days Qty: 180 0RF azithromycin 250 mg tablet 250 mg PO ONCE 5 Days Qty: 6 0RF Rx Instructions: Take 2 tablets today then 1 daily prednisone 10 mg tablet 10 mg PO DAILY 5 Days Qty: 5 0RF prednisone 10 mg tablet 10 mg PO DAILY 7 Days Qty: 7 0RF azithromycin 250 mg tablet 250 mg PO ONCE 5 Days Qty: 6 0RF Rx Instructions: Take 2 tablets today then 1 daily paroxetine HCl [Paxil] 20 mg tablet 20 mg PO DAILY diclofenac sodium 75 mg tablet,delayed release (DR/EC) 75 mg PO BID amoxicillin-pot clavulanate 875-125 mg tablet 1 tab PO BID 7 Days Qty: 14 0RF
[2022-11-20 02:30] LABS: Alanine Aminotransferase 15 U/L (0-31); Albumin Level 4.5 g/dL (3.5-5.0); Alkaline Phosphatase 92 U/L (39-117); Aspartate Amino Transferase 14 U/L (5-31); Bilirubin Direct 0.1 mg/dL (0.0-0.5); Bilirubin Total 0.4 mg/dL (0.0-1.0); Lipase 16 U/L (8-78); Total Protein 6.7 g/dL (6.5-8.0)
[2022-11-20] MEDS: iohexoL 350 MG/ML 100 ML INFUS..BTL 85 ML IV (03:08)
[2022-11-20 03:26] VITALS: BP 137/58; PULSE 88; RESP 16; TEMP 36.6; O2SAT 99
== END 2022-11-20 05:08 | disposition home or self-care (01) ==
PROVIDERS: Emergency Provider Emergency Medicine
DX: R10.9 Unspecified abdominal pain (principal); R11.2 Nausea with vomiting, unspecified
CPT/HCPCS: 36415; 74177; 80048; 80076; 81001; 83690; 85025; Q9967

== ENCOUNTER 2022-11-20 21:27 | Emergency (ER) | payer MEDICARE, MEDICAID, SELFPAY ==
--- NOTE | 2022-11-20 | ECG_ITS ---
Test Reason : CHEST PAIN Blood Pressure : / mmHG Vent. Rate : 098 BPM Atrial Rate : 098 BPM P-R Int : 154 ms QRS Dur : 090 ms QT Int : 364 ms P-R-T Axes : 054 013 064 degrees QTc Int : 464 ms Normal sinus rhythm Cannot rule out Anterior infarct , age undetermined Abnormal ECG When compared with ECG of 09-AUG-2019 23:02, No significant change was found Referred By: Generic ED Physician Electronically Signed By:BASHIR BROTHERS MD
--- NOTE | ~2022-11-20 | XR_ITS ---
EXAMINATION: XR ABDOMEN KUB CLINICAL INDICATION: Bowel obstruction COMPARISON: Abdomen 02/04/2022. CT scan abdomen pelvis 11/20/2022 TECHNIQUE: AP view of the abdomen. FINDINGS: The bowel gas pattern is normal with no evidence of ileus or obstruction. No unusual soft tissue calcifications are noted. The bones are unremarkable. XR/XR abdomen 1V IMPRESSION: Unremarkable examination.
[2022-11-20 21:58] VITALS: BP 119/64; PULSE 90; RESP 18; TEMP 36.7; O2SAT 94; BMI 32.2
[2022-11-20 21:58] LABS: MANUAL DIFF FLAG NO
[2022-11-20 22:00] LABS: Basophils Percent Auto 0.3 % (0-2); Eosinophils Absolute Auto 0.1 X10*3/uL (0.0-0.4); Eosinophils Percent Auto 0.6 % (0-4); Hematocrit 43.8 % (37.0-47.0); Hemoglobin 14.9 g/dl (12.0-16.0); Imm Gran Abs Auto 0.06 X10*3/uL (0.00-0.03); Imm Gran Pct Auto 0.5 % (0.0-0.4); Lymphocytes Absolute Auto 3.8 X10*3/uL (1.2-4.9); Lymphocytes Percent Auto 33.2 % (20-40); Mean Corpuscular Hemoglobin 30.8 pg (27.0-33.0); Mean Corpuscular Volume 90.7 fL (80.0-98.0); Mean Platelet Volume 9.4 fL (9.4-12.3); Monocytes Absolute Auto 0.7 X10*3/uL (0.1-1.2); Monocytes Percent Auto 5.9 % (2-11); Neutrophils Absolute Auto 6.9 x10*3/uL (2.0-8.3); Neutrophils Percent Auto 59.5 % (45-73); Platelet Count 323 X10*3/uL (160-400); Red Blood Count 4.83 X10*6/uL (4.20-5.50); Red Cell Distribution Width 14.6 % (11.0-16.0); White Blood Count 11.5 X10*3/uL (4.8-10.8)
[2022-11-20 22:01] LABS: Appearance Urine Clear; Color Urine Dark Yellow; Glucose Urine UA Negative (Negative); Leukocyte Esterase Urine Trace (Negative); Nitrite Urine Negative (Negative); Specific Gravity - Urine >= 1.030 (1.005-1.025); UMIC TRIGGER UACC YES; Urine Blood Negative (Negative); Urine Ketones 40 mg/dL (Negative); Urine Protein 30 (1+) mg/dL (Neg-Trace)
[2022-11-20 22:06] LABS: Bacteria Urine None Seen (None Seen); Hyaline Casts Urine 0-2 /LPF (0-2); WBC Urine 0-5 /HPF (0-5)
[2022-11-20 22:16] LABS: Alanine Aminotransferase 18 U/L (0-31); Albumin Level 4.4 g/dL (3.5-5.0); Alkaline Phosphatase 87 U/L (39-117); Anion Gap 13 (12-20); Aspartate Amino Transferase 14 U/L (5-31); Bilirubin Direct 0.1 mg/dL (0.0-0.5); Bilirubin Total 0.3 mg/dL (0.0-1.0); Blood Urea Nitrogen 11 mg/dL (9-16); Calcium 9.4 mg/dL (8.4-10.2); Carbon Dioxide 23 mmol/L (22-29); Chloride 109 mmol/L (96-108); Creatinine Clr Calc Pharmacy 93.5; Estimated Glomerular Filt Rate > 60; Glucose Random 100 mg/dL (60-115); Lipase 23 U/L (8-78); Potassium 3.4 mmol/L (3.3-5.1); Sodium 142 mmol/L (135-145); Total Protein 6.5 g/dL (6.5-8.0)
--- NOTE | 2022-11-20 23:40 | ED.GENADULT ---
HPI - General Adult General Chief complaint: Abdominal Pain Stated complaint: abd pain radiating to back ,chest pain Time Seen by Provider: 11/20/22 23:25 Source: patient, RN notes reviewed and old records reviewed Mode of arrival: ambulatory Limitations: no limitations History of Present Illness HPI narrative: 47-year-old female presents for evaluation of abdominal pain. patient reports abdominal pain for the last 3 days that starts in the right-sided radiates around to the left side into her back she states the pain is 10/10. She has associated nausea and vomiting. She reports multiple previous abdominal surgeries including partial colectomy and stomach revisions. She is concerned that she may have pain from scar tissue. she was seen here early this morning and had a workup that included labs and a CT scan within the pelvis. She was ultimately discharged home with what was felt to be a viral etiology of her abdominal pain her CT scan did not show any evidence of obstruction Related Data Home Medications Medication Instructions Recorded Confirmed clonazepam 0.5 mg tablet 0.5 mg PO BEDTIME 10/10/20 08/22/22 paroxetine HCl 20 mg tablet (Paxil) 20 mg PO DAILY 08/21/21 08/22/22 diclofenac sodium 75 mg 75 mg PO BID 04/14/22 08/22/22 tablet,delayed release Previous Rx's Medication Instructions Recorded cyclobenzaprine 10 mg tablet 10 mg PO BEDTIME #90 tabs 07/16/20 ipratropium bromide 21 mcg (0.03 2 spray intranasal BID #60 mL 12/02/21 %) nasal spray acetaminophen 650 mg 650 mg PO Q12H PRN pain 90 days 05/15/22 tablet,extended release (Tylenol #180 tabs Arthritis Pain) ibuprofen 800 mg tablet 800 mg PO Q8H PRN fever or pain 90 05/15/22 days #270 tabs azithromycin 250 mg tablet 250 mg PO ONCE 5 days #6 tabs 08/22/22 azithromycin 250 mg tablet 250 mg PO ONCE 5 days #6 tabs 08/22/22 prednisone 10 mg tablet 10 mg PO DAILY 5 days #5 tabs 08/22/22 prednisone 10 mg tablet 10 mg PO DAILY 7 days #7 tabs 08/22/22 loratadine 10 mg tablet 10 mg PO DAILY 90 days #90 tabs 10/02/22 amoxicillin 875 mg-potassium 1 tab PO BID 7 days #14 tabs 11/19/22 clavulanate 125 mg tablet ondansetron 4 mg disintegrating 4 mg PO Q6H PRN nausea and 11/20/22 tablet vomiting #14 tabs Allergies Allergy/AdvReac Type Severity Reaction Status Date / Time topiramate [From TOPAMAX] Allergy Mild NAUSEA & Verified 11/20/22 22:02 VOMITING divalproex sodium AdvReac Unknown NAUSEA & Verified 11/20/22 22:02 [From DEPAKOTE] VOMITING Review of Systems Constitutional: Constitutional: Reports as per HPI, Denies chills, Denies fatigue, Denies fever(s) and Denies headache(s) ENT: Denies headache(s) Cardiovascular: Cardiovascular: Denies chest pain and Denies dyspnea Respiratory: Respiratory: Denies cough and Denies dyspnea Gastrointestinal: Gastrointestinal: Reports abdominal pain, Denies constipation, Reports nausea and Reports vomiting Genitourinary: Genitourinary: Denies dysuria Neurologic: Denies headache(s) and Denies focal weakness Endocrine: Endocrine: Denies fatigue [facility] Past Medical History Medical History Ankle pain, left Anxiety Fibromyalgia Migraine Obesity Restless leg syndrome Wrist pain, left Surgical History H/O LEEP H/O rectal polypectomy History of colectomy History of hernia repair History of surgery History of tonsillectomy History of umbilical hernia repair History of wisdom tooth extraction Family History Family History Father CVD (cardiovascular disease) Myocardial infarction Mother Seizure Dementia Chronic mental illness Myocardial infarction, Onset Age: 40 Sister In good health Son In good health Other Mental health disorder Social History Social History Housing: Apartment Alcohol intake: current Alcohol intake frequency: holidays/special occasions only Patient Tobacco Use Status: Current everyday Tobacco user Tobacco use type: Cigarette Cigarettes Per Day: 10 Years Smoked: 15 e-Cigarette/Vaping Use: Never Used Second Hand Smoke Exposure: No Advance Directives: No Advance Directives Information Provided: No service: No Current occupational status: disabled Cognitive needs: No Hearing needs: No Vision needs: No Physical Exam ED Vital Signs: Vital Signs - 24 hr 11/20/22 21:58 Temperature 98.1 F Pulse Rate 90 Respiratory Rate 18 Blood Pressure 119/64 Pulse Oximetry 94 Oxygen Delivery Method Room Air BMI result Body Mass Index 32.2 Const General: healthy appearing, comfortable, no acute distress, alert and awake Nutritional Appearance: well nourished Orientation/consciousness: patient oriented x3 HENMT Head: Yes normocephalic and Yes atraumatic Throat: Yes posterior oropharynx normal Eyes Eyelids: Yes eyelids normal Conjunctivae: conjunctivae normal Sclerae: sclerae normal Corneas: corneas normal Pupils: Equal, round and reactive pupils present EOM: EOMs intact bilaterally Neck Neck: Yes full ROM Resp Effort & Inspection: normal respiratory effort, able to speak in complete sentences, no audible wheezes and not labored Auscultation: clear to auscultation bilaterally Cardio Rate: regular rate Rhythm: regular rhythm GI Inspection: No distended Palpation (GI): Soft to palpation, not firm, no guarding and not rigid Auscultation: normoactive bowel sounds Skin General skin exam: no rashes or lesions noted and elasticity normal Neuro General: patient oriented x3 Cranial nerves: Yes CN's II-XII intact bilaterally, Yes Equal, round and reactive pupils present and Yes Bilaterally intact EOM present Cognition (Neuro): normal cognition Extrem Other: Moving all extremities well without any obvious deformities Course Reevaluation(s) Reevaluation #1: x-ray negative for obstructive bowel gas Time: 00:46 Medications Administered Discontinued Medications Generic Name Dose Route Start Last Admin Trade Name Freq PRN Reason Stop Dose Admin Morphine Sulfate 4 mg 11/20/22 23:36 11/20/22 23:55 Morphine Sulfate 4 Mg/Ml Cartridge IM 11/20/22 23:37 4 mg ONCE ONE Administration Protocol Medical Decision Making Medical Decision Making [facility] Narrative: 47-year-old female presents for evaluation of abdominal pain, she was seen here less than [address] scan that did not show any acute findings. Repeat labs show no interval change. UA has trace blood but no signs of UTI. will treat the patient's pain with morphine 4 mg IM. will get an x-ray to rule out obstructive bowel gas pattern as the patient reports her pain is worse than it was yesterday, but her exam is reassuring and I do not feel the need to CT scan the abdomen pelvis again Differential Diagnosis abdominal pain Constipation Ileus Small-bowel obstruction Diverticulitis Lab Data 11/20/22 21:49 11/20/22 21:49 Labs: Lab Results 11/20/22 11/20/22 11/20/22 Range/Units 21:49 21:49 21:54 WBC 11.5 H (4.8-10.8) X10*3/uL RBC 4.83 (4.20-5.50) X10*6/uL Hgb 14.9 (12.0-16.0) g/dl Hct 43.8 (37.0-47.0) % MCV 90.7 (80.0-98.0) fL MCH 30.8 (27.0-33.0) pg MCHC 34.0 (31.0-35.0) g/dl RDW 14.6 (11.0-16.0) % Plt Count 323 (160-400) X10*3/uL MPV 9.4 (9.4-12.3) fL Immature Gran % (Auto) 0.5 H (0.0-0.4) % Neut % (Auto) 59.5 (45-73) % Lymph % (Auto) 33.2 (20-40) % [place] % (Auto) 5.9 (2-11) % Eos % (Auto) 0.6 (0-4) % Baso % (Auto) 0.3 (0-2) % Lymph # (Auto) 3.8 (1.2-4.9) X10*3/uL [place] # (Auto) 0.7 (0.1-1.2) X10*3/uL Eos # (Auto) 0.1 (0.0-0.4) X10*3/uL Baso # (Auto) 0.0 (0.0-0.2) X10*3/uL Abs Immat Gran (auto) 0.06 H (0.00-0.03) X10*3/uL Absolute Neuts (auto) 6.9 (2.0-8.3) x10*3/uL Absolute Nucleated RBC 0.000 (0.0-0.012) X10*3/uL Nucleated RBC % (auto) 0.0 (0.0-0.2) /100WBC Sodium 142 (135-145) mmol/L Potassium 3.4 (3.3-5.1) mmol/L Chloride 109 H (96-108) mmol/L Carbon Dioxide 23 (22-29) mmol/L Anion Gap 13 (12-20) BUN 11 (9-16) mg/dL Creatinine 0.72 (0.5-1.4) mg/dL Estim Creat Clear Calc 93.5 Estimated GFR > 60 Random Glucose 100 (60-115) mg/dL Calcium 9.4 (8.4-10.2) mg/dL Total Bilirubin 0.3 (0.0-1.0) mg/dL Direct Bilirubin 0.1 (0.0-0.5) mg/dL AST 14 (5-31) U/L ALT 18 (0-31) U/L Alkaline Phosphatase 87 (39-117) U/L Total Protein 6.5 (6.5-8.0) g/dL Albumin 4.4 (3.5-5.0) g/dL Lipase 23 (8-78) U/L Urine Color Dark Yellow Urine Appearance Clear Urine pH 6.0 (5.0-9.0) Ur Specific [place] >= 1.030 H (1.005-1.025) Urine Protein 30 (1+) H (Neg-Trace) mg/dL Urine Glucose (UA) Negative (Negative) mg/dL Urine Ketones 40 (Negative) mg/dL Urine Blood Negative (Negative) Urine Nitrite Negative (Negative) Ur Leukocyte Esterase Trace H (Negative) Urine RBC 3-5 H (0-2) /HPF Urine WBC 0-5 (0-5) /HPF Ur Squamous Epith Cells 6-10 (0-2) /HPF Urine Bacteria None Seen (None Seen) Hyaline Casts 0-2 (0-2) /LPF Discharge Plan Discharge Clinical Impression: Abdominal pain Patient Disposition: Home, Self-Care Instructions: Abdominal Pain (ED) Additional Instructions: your blood work was reassuring your x-ray did not show any evidence of obstruction you may use ibuprofen or Tylenol for any further discomfort follow-up with your primary doctor Prescriptions: No Action cyclobenzaprine 10 mg tablet 10 mg PO BEDTIME Qty: 90 8RF ipratropium bromide 21 mcg (0.03 %) spray,non-aerosol 2 spray intranasal BID Qty: 60 0RF loratadine 10 mg tablet 10 mg PO DAILY 90 Days Qty: 90 1RF ondansetron 4 mg tablet,disintegrating 4 mg PO Q6H PRN (Reason: nausea and vomiting) Qty: 14 0RF clonazepam 0.5 mg tablet 0.5 mg PO BEDTIME ibuprofen 800 mg tablet 800 mg PO Q8H PRN (Reason: fever or pain) 90 Days Qty: 270 0RF acetaminophen [Tylenol Arthritis Pain] 650 mg tablet extended release 650 mg PO Q12H PRN (Reason: pain) 90 Days Qty: 180 0RF azithromycin 250 mg tablet 250 mg PO ONCE 5 Days Qty: 6 0RF Rx Instructions: Take 2 tablets today then 1 daily prednisone 10 mg tablet 10 mg PO DAILY 5 Days Qty: 5 0RF prednisone 10 mg tablet 10 mg PO DAILY 7 Days Qty: 7 0RF azithromycin 250 mg tablet 250 mg PO ONCE 5 Days Qty: 6 0RF Rx Instructions: Take 2 tablets today then 1 daily paroxetine HCl [Paxil] 20 mg tablet 20 mg PO DAILY diclofenac sodium 75 mg tablet,delayed release (DR/EC) 75 mg PO BID amoxicillin-pot clavulanate 875-125 mg tablet 1 tab PO BID 7 Days Qty: 14 0RF
[2022-11-20] MEDS: Morphine Sulfate 4 MG/ML CARTRIDGE IM (23:55)
== END 2022-11-21 01:17 | disposition home or self-care (01) ==
PROVIDERS: Emergency Provider Student in an Organized Health Care Education/Training Program; PCP Physician Assistant
DX: R10.9 Unspecified abdominal pain (principal); E78.5 Hyperlipidemia, unspecified; F17.200 Nicotine dependence, unspecified, uncomplicated; Z59.00 Homelessness unspecified; Z79.899 Other long term (current) drug therapy
CPT/HCPCS: 36415; 74018; 74177; 80048; 80076; 81001; 81003; 83690; 85025; 93005; 96372; 99283; 99284; J2270; Q9967

== ENCOUNTER 2022-11-24 03:13 | Emergency (ER) | payer OTHER, MEDICARE, MEDICAID, SELFPAY ==
--- NOTE | ~2022-11-24 | XR_ITS ---
EXAMINATION: XR CHEST CLINICAL INFORMATION: Shortness of breath COMPARISON: 08/22/2022 TECHNIQUE: Frontal view of the chest was obtained. FINDINGS: The lungs are clear with no focal consolidation. No evidence of pneumothorax, pulmonary edema, or pleural effusions. The cardiomediastinal silhouette is unremarkable. No acute osseous findings. XR/XR chest 1V IMPRESSION: No acute cardiopulmonary findings.
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
--- NOTE | ~2022-11-24 | CT_ITS ---
EXAMINATION: CT abdomen pelvis w IV con CLINICAL INFORMATION: Reason for Exam abd pain COMPARISON: No prior CT available for comparison. TECHNIQUE: Multidetector volumetric imaging was performed from the superior aspect of the liver through the pubic symphysis 85 mL Omnipaque 350 injected. Sagittal and coronal reformatted images were obtained on the technologist's workstation. This CT examination was performed using dose optimization techniques as appropriate, variously including the following: *Automated exposure control *Adjustment of mA and/or kV according to patient size (this includes techniques or standardized protocols for targeted exams where dose is matched to indication/reason for exam; i.e. extremities or head) *Use of iterative reconstruction technique DLP: 609 mGy-cm FINDINGS: LOWER THORAX: There is subsegmental atelectasis at right lung base. HEPATOBILIARY: No focal hepatic lesions. No biliary ductal dilatation. GALLBLADDER: Gallbladder unremarkable. SPLEEN: Spleen is normal in size. PANCREAS: No focal mass or ductal dilatation. STOMACH AND GASTROINTESTINAL TRACT: Stomach is grossly unremarkable. There is heavy diverticulosis without CT evidence of acute diverticulitis. Anastomosis line in the sigmoid colon, no dehiscence. No CT evidence of appendicitis. ADRENALS: No adrenal nodules. KIDNEYS/URETERS: No hydronephrosis, stones or solid mass lesions. URINARY BLADDER: Partially decompressed. PELVIC VISCERA: Fluid-filled cystic structure in the right side of the pelvis 5 x 3.7 cm most likely an ovarian cyst. This has not changed. PERITONEUM: No free air or fluid. LYMPH NODES: No lymphadenopathy. VASCULAR:Abdominal aorta normal in size, no aneurysm found. BONES, ABDOMINAL WALL AND SOFT TISSUES: Anterior abdominal wall periumbilical hernia containing fat and mesentery. Roughly measure 4.[address]/CT abdomen pelvis w IV con IMPRESSION: * No CT evidence of acute intra-abdominal process to explain patient's pain symptoms. * Diverticulosis without CT evidence of acute diverticulitis. * Fluid-filled cystic structure in the right side of the pelvis 5 cm unchanged from prior exam. If patient is postmenopausal, Findings likely represent a probable benign cyst. Recommend followup ultrasonography in 3-6 months. * Anterior abdominal wall periumbilical hernia containing fat and mesentery. * Subsegmental atelectasis right lung base.
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
[2022-11-24 03:24] VITALS: BP 128/86; PULSE 74; O2SAT 100
[2022-11-24 03:32] VITALS: BP 114/49; PULSE 98; RESP 16; O2SAT 98; BMI 31.6
[2022-11-24 05:24] VITALS: BP 127/59; PULSE 98; RESP 18; TEMP 36.8; O2SAT 98
[2022-11-24 06:10] LABS: MANUAL DIFF FLAG NO
[2022-11-24 06:13] LABS: Basophils Absolute Auto 0.1 X10*3/uL (0.0-0.2); Basophils Percent Auto 0.5 % (0-2); Eosinophils Absolute Auto 0.2 X10*3/uL (0.0-0.4); Eosinophils Percent Auto 1.1 % (0-4); Hematocrit 43.4 % (37.0-47.0); Hemoglobin 15.1 g/dl (12.0-16.0); Imm Gran Abs Auto 0.07 X10*3/uL (0.00-0.03); Imm Gran Pct Auto 0.5 % (0.0-0.4); Lymphocytes Percent Auto 28.5 % (20-40); Mean Corpuscular HGB Conc 34.8 g/dl (31.0-35.0); Mean Corpuscular Hemoglobin 31.7 pg (27.0-33.0); Mean Platelet Volume 9.9 fL (9.4-12.3); Monocytes Absolute Auto 0.7 X10*3/uL (0.1-1.2); Monocytes Percent Auto 5.2 % (2-11); Neutrophils Percent Auto 64.2 % (45-73); Platelet Count 303 X10*3/uL (160-400); Red Blood Count 4.77 X10*6/uL (4.20-5.50); Red Cell Distribution Width 14.2 % (11.0-16.0); White Blood Count 14.1 X10*3/uL (4.8-10.8)
[2022-11-24 06:46] LABS: Acetaminophen LAB < 17 mcg/mL (<30); Alanine Aminotransferase 23 U/L (0-31); Albumin Level 4.5 g/dL (3.5-5.0); Alkaline Phosphatase 85 U/L (39-117); Anion Gap 13 (12-20); Aspartate Amino Transferase 17 U/L (5-31); Bilirubin Direct 0.1 mg/dL (0.0-0.5); Bilirubin Total 0.3 mg/dL (0.0-1.0); Blood Urea Nitrogen 8 mg/dL (9-16); Calcium 9.4 mg/dL (8.4-10.2); Carbon Dioxide 24 mmol/L (22-29); Chloride 109 mmol/L (96-108); Creatinine Clr Calc Pharmacy 96.6; Estimated Glomerular Filt Rate > 60; Glucose Random 96 mg/dL (60-115); HCG Quantitative < 2 mIU/mL; Lipase 21 U/L (8-78); Potassium 3.3 mmol/L (3.3-5.1); Salicylate < 5.0 mg/dL (15-30); Sodium 143 mmol/L (135-145); Total Protein 6.6 g/dL (6.5-8.0)
[2022-11-24 07:14] VITALS: BP 118/44; PULSE 110; RESP 16; TEMP 36.6; O2SAT 97
[2022-11-24 07:14] LABS: Ethanol < 10 mg/dL
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
[2022-11-24] MEDS: iohexoL 350 MG/ML 100 ML INFUS..BTL IV (08:21)
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
[2022-11-24 11:43] VITALS: BP 126/43; PULSE 97; RESP 16; TEMP 36.6; O2SAT 91
[2022-11-24 12:17] LABS: Amphetamine Screen Urine Not Detected (Not Detect); Barbiturates, Urine Not Detected (Not Detect); Benzodiazepines Screen Urine Not Detected (Not Detect); Cannabinoid Screen Urine Not Detected (Not Detect); Cocaine Screen Urine Not Detected (Not Detect); Fentanyl, urine Not Detected (Not Detect); Opiate Screen Urine Not Detected (Not Detect); Phencyclidine Screen Urine Not Detected (Not Detect)
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
--- NOTE | 2022-11-24 13:41 | PC.NURSE ---
PT WAS FOUND OUTSIDE THE ER, BELONGINGS WERE IN HER ROOM. ALL BELONGINGS WERE RETURNED TO HER, A LYFT WAS ARRANGED BY CASE MANAGEMENT, WHICH PT DID ASK IF SHE COULD CANCEL IT. SHE WAS EDUCATED THAT THERE IS LIMITED ACCESS TO TRANSPORTATION. STEADY GAIT IN NO ACUTE DISTRESS UPON DEPARTURE OF THE ED. IT IS UNKNOWN IF SHE TOOK THE LYFT OR NOT.
== END 2022-11-24 13:48 | disposition home or self-care (01) ==
PROVIDERS: Emergency Provider Emergency Medicine Emergency Medical Services
DX: R06.02 Shortness of breath (principal); J98.11 Atelectasis; M54.2 Cervicalgia; R51.9 Headache, unspecified; M54.6 Pain in thoracic spine; R10.2 Pelvic and perineal pain; Z79.899 Other long term (current) drug therapy
CPT/HCPCS: 36415; 70450; 71045; 71260; 72125; 74177; 80048; 80076; 80143; 80179; 80307; 83690; 84702; 85025; 99284; Q9967

== ENCOUNTER 2022-12-05 15:29 | Emergency (ER) | payer MEDICARE, MEDICAID, SELFPAY ==
[2022-12-05 16:04] VITALS: BP 145/71; PULSE 83; RESP 18; TEMP 36.6; O2SAT 100; BMI 31.8
--- NOTE | 2022-12-05 16:07 | ED.GENADULT ---
HPI - General Adult General Chief complaint: Psychiatric Symptoms Stated complaint: mental breakdown, trembles, behavioral Time Seen by Provider: 12/05/22 16:38 Source: patient Mode of arrival: ambulatory Limitations: no limitations History of Present Illness HPI narrative: Patient comes to the emergency room complaining of worsening anxiety and depression. Patient states that she has a lot going on in her life such as planning a wedding that is due in a month, but the worse is that patient is 19-year-old son, told her that he does not recognize her as his mother and does not want anything to do with her anymore. Patient denies suicidal or homicidal ideation also, patient states that she is homeless at the time, she has been living between hotels and in her car. Patient lost somewhere her depression medications and for about a week she has not taking any of her meds. Related Data Home Medications Medication Instructions Recorded Confirmed No Known Home Meds 12/05/22 12/05/22 Allergies Allergy/AdvReac Type Severity Reaction Status Date / Time topiramate [From TOPAMAX] Allergy Mild NAUSEA & Verified 12/05/22 16:10 VOMITING divalproex sodium AdvReac Unknown NAUSEA & Verified 12/05/22 16:10 [From DEPAKOTE] VOMITING Review of Systems Review of Systems: Constitutional : No Weight loss, No Fever, No Chills, No Night Sweats, No Fatigue, No Malaise ENT/Mouth : No Hearing loss, No Ear Pain, No Nasal Congestion, No Sinus Pain, No Hoarseness, No sore throat, No Rhinorrhea, No Swallowing Difficulty Eyes: No Eye Pain, No Swelling, No Redness, No Foreign Body, No Discharge, No Vision Changes Cardiovascular : No Chest Pain, No SOB, No Dyspnea on Exertion, No Orthopnea, No Edema, No Palpitations Respiratory : No Cough, No Sputum, No Wheezing, No Smoke Exposure, No Dyspnea Gastrointestinal : No Nausea, No Vomiting, No Diarrhea, No Constipation, No abdominal Pain, No Hematochezia, No Melena Genitourinary : no irregular bleeding, No Dysuria, No Urinary Frequency, No Hematuria, No Urinary Incontinence, No Urgency, No Flank Pain, No Urinary Flow Changes, No Hesitancy Musculoskeletal : No joint pain, No Myalgias, No Joint Swelling Skin : No Skin Lesions, No rash Neuro : No Weakness, No Numbness, No Paresthesias, No Loss of Consciousness, No Dizziness, No Headache Psych : Complaining of anxiety and depression, No SI/HI/AH/VH, No Social Issues, Heme/Lymph: No Bruising, No Bleeding,No Lymphadenopathy Endocrine : No Polyuria, No Polydipsia, No Temperature Intolerance [facility] Past Medical History Medical History Ankle pain, left Anxiety Fibromyalgia Migraine Obesity Restless leg syndrome Wrist pain, left Surgical History H/O LEEP H/O rectal polypectomy History of colectomy History of hernia repair History of surgery History of tonsillectomy History of umbilical hernia repair History of wisdom tooth extraction Family History Family History Father CVD (cardiovascular disease) Myocardial infarction Mother Seizure Dementia Chronic mental illness Myocardial infarction, Onset Age: 40 Sister In good health Son In good health Other Mental health disorder Social History Social History Housing: Apartment Alcohol intake: current Alcohol intake frequency: holidays/special occasions only Patient Tobacco Use Status: Current everyday Tobacco user Tobacco use type: Cigarette Cigarettes Per Day: 10 Years Smoked: 15 Smoked in Last 30 Days: Yes e-Cigarette/Vaping Use: Never Used Second Hand Smoke Exposure: No Use of substances other than those prescribed or required for medical reasons: Yes Substance Use Type: Marijuana Substance Use Frequency: Weekly Last Used Substance: Hours (ago) Advance Directives: No Advance Directives Information Provided: Yes service: No Current occupational status: disabled Cognitive needs: No Hearing needs: No Vision needs: No Physical Exam ED Vital Signs: Vital Signs - 24 hr 12/05/22 16:04 Temperature 98 F Pulse Rate 83 Respiratory Rate 18 Blood Pressure 145/71 H Pulse Oximetry 100 Oxygen Delivery Method Room Air BMI result Body Mass Index 31.8 Const Other: Appearance: Alert. Oriented X3. No acute distress. Eyes: Pupils equal, round and reactive to light. ENT: Pharynx normal. Neck: Normal inspection. Neck supple. No lymph nodes noted. No crepitus CVS: Normal heart rate and rhythm. Pulses normal. Normal S1 and S2 Respiratory: No respiratory distress. Breath sounds normal. No Wheezing. No rales Abdomen: Soft and nontender. No rigidity. No distention. Skin: Skin warm and dry. Normal skin color. Normal skin turgor. Extremities: No lower extremity edema. No Lacerations. No Rash Neuro: Oriented X 3. No motor deficit. No sensory deficit. Moving all extremities. No slurred speech. CN 2 through 12 grossly intact Psych: calm, cooperative, sad, crying Course Course Course Narrative: RME performed by Anna Mckeon PA-C. Patient is a 47 year old assigned female at presenting to the emergency department with anxiety. Labs ordered. Patient placed back in the waiting room pending room availability and results. Medical Decision Making Medical Decision Making [facility] Narrative: -patient has chronic leukocytosis -chemistry within normal limits, urinalysis and U tox negative -care team consult pending -physician observation started at 17:00 -CARe team evaluated the patient, pt is not suicidal or homicial, now wants to be discharged, said she had a panic attack Lab Data 12/05/22 16:41 12/05/22 16:41 Labs: Lab Results 12/05/22 12/05/22 12/05/22 Range/Units 16:31 16:37 16:37 WBC (4.8-10.8) X10*3/uL RBC (4.20-5.50) X10*6/uL Hgb (12.0-16.0) g/dl Hct (37.0-47.0) % MCV (80.0-98.0) fL MCH (27.0-33.0) pg MCHC (31.0-35.0) g/dl RDW (11.0-16.0) % Plt Count (160-400) X10*3/uL MPV (9.4-12.3) fL Immature Gran % (Auto) (0.0-0.4) % Neut % (Auto) (45-73) % Lymph % (Auto) (20-40) % [place] % (Auto) (2-11) % Eos % (Auto) (0-4) % Baso % (Auto) (0-2) % Lymph # (Auto) (1.2-4.9) X10*3/uL [place] # (Auto) (0.1-1.2) X10*3/uL Eos # (Auto) (0.0-0.4) X10*3/uL Baso # (Auto) (0.0-0.2) X10*3/uL Abs Immat Gran (auto) (0.00-0.03) X10*3/uL Absolute Neuts (auto) (2.0-8.3) x10*3/uL Absolute Nucleated RBC (0.0-0.012) X10*3/uL Nucleated RBC % (auto) (0.0-0.2) /100WBC Sodium (135-145) mmol/L Potassium (3.3-5.1) mmol/L Chloride (96-108) mmol/L Carbon Dioxide (22-29) mmol/L Anion Gap (12-20) BUN (9-16) mg/dL Creatinine (0.5-1.4) mg/dL Estim Creat Clear Calc Estimated GFR Random Glucose (60-115) mg/dL Calcium (8.4-10.2) mg/dL Total Bilirubin (0.0-1.0) mg/dL AST (5-31) U/L ALT (0-31) U/L Alkaline Phosphatase (39-117) U/L Total Protein (6.5-8.0) g/dL Albumin (3.5-5.0) g/dL Urine Color Yellow Urine Appearance Clear Urine pH 7.0 (5.0-9.0) Ur Specific [place] <= 1.005 (1.005-1.025) Urine Protein Negative (Neg-Trace) mg/dL Urine Glucose (UA) Negative (Negative) mg/dL Urine Ketones Negative (Negative) mg/dL Urine Blood Negative (Negative) Urine Nitrite Negative (Negative) Ur Leukocyte Esterase Negative (Negative) Urine Test NEGATIVE (NEGATIVE) Salicylates (15-30) mg/dL Urine Opiates Screen (Not Detect) Urine Fentanyl Screen (Not Detect) Acetaminophen (<30) mcg/mL Ur Barbiturates Screen (Not Detect) Ur Phencyclidine Scrn (Not Detect) Ur Amphetamines Screen (Not Detect) U Benzodiazepines Scrn (Not Detect) Urine Cocaine Screen (Not Detect) U Marijuana (THC) Screen (Not Detect) Ethyl Alcohol mg/dL COVID-19 (ANNE) Negative (Negative) COVID-19 Clin Com See Note 12/05/22 12/05/22 12/05/22 Range/Units 16:37 16:41 16:41 WBC 15.1 H (4.8-10.8) X10*3/uL RBC 4.92 (4.20-5.50) X10*6/uL Hgb 15.1 (12.0-16.0) g/dl Hct 45.3 (37.0-47.0) % MCV 92.1 (80.0-98.0) fL MCH 30.7 (27.0-33.0) pg MCHC 33.3 (31.0-35.0) g/dl RDW 14.7 (11.0-16.0) % Plt Count 328 (160-400) X10*3/uL MPV 9.8 (9.4-12.3) fL Immature Gran % (Auto) 0.5 H (0.0-0.4) % Neut % (Auto) 70.1 (45-73) % Lymph % (Auto) 22.9 (20-40) % [place] % (Auto) 5.6 (2-11) % Eos % (Auto) 0.5 (0-4) % Baso % (Auto) 0.4 (0-2) % Lymph # (Auto) 3.5 (1.2-4.9) X10*3/uL [place] # (Auto) 0.9 (0.1-1.2) X10*3/uL Eos # (Auto) 0.1 (0.0-0.4) X10*3/uL Baso # (Auto) 0.1 (0.0-0.2) X10*3/uL Abs Immat Gran (auto) 0.07 H (0.00-0.03) X10*3/uL Absolute Neuts (auto) 10.5 H (2.0-8.3) x10*3/uL Absolute Nucleated RBC 0.000 (0.0-0.012) X10*3/uL Nucleated RBC % (auto) 0.0 (0.0-0.2) /100WBC Sodium 144 (135-145) mmol/L Potassium 3.7 (3.3-5.1) mmol/L Chloride 108 (96-108) mmol/L Carbon Dioxide 27 (22-29) mmol/L Anion Gap 13 (12-20) BUN 6 L (9-16) mg/dL Creatinine 0.66 (0.5-1.4) mg/dL Estim Creat Clear Calc 101.4 Estimated GFR > 60 Random Glucose 103 (60-115) mg/dL Calcium 9.9 (8.4-10.2) mg/dL Total Bilirubin 0.2 (0.0-1.0) mg/dL AST 18 (5-31) U/L ALT 26 (0-31) U/L Alkaline Phosphatase 69 (39-117) U/L Total Protein 6.9 (6.5-8.0) g/dL Albumin 4.7 (3.5-5.0) g/dL Urine Color Urine Appearance Urine pH (5.0-9.0) Ur Specific [place] (1.005-1.025) Urine Protein (Neg-Trace) mg/dL Urine Glucose (UA) (Negative) mg/dL Urine Ketones (Negative) mg/dL Urine Blood (Negative) Urine Nitrite (Negative) Ur Leukocyte Esterase (Negative) Urine Test (NEGATIVE) Salicylates < 5.0 L (15-30) mg/dL Urine Opiates Screen Not Detected (Not Detect) Urine Fentanyl Screen Not Detected (Not Detect) Acetaminophen < 17 (<30) mcg/mL Ur Barbiturates Screen Not Detected (Not Detect) Ur Phencyclidine Scrn Not Detected (Not Detect) Ur Amphetamines Screen Not Detected (Not Detect) U Benzodiazepines Scrn Not Detected (Not Detect) Urine Cocaine Screen Not Detected (Not Detect) U Marijuana (THC) Screen Not Detected (Not Detect) Ethyl Alcohol < 10 mg/dL COVID-19 (ANNE) (Negative) COVID-19 Clin Com Discharge Plan Discharge Clinical Impression: Anxiety and depression Patient Disposition: Home, Self-Care Instructions: Anxiety (ED) Prescriptions: No Action No Known Home Meds Interventions: [place]-Suicide Risk Severity Scale Last Done: 12/05/22 16:45
[2022-12-05 16:47] LABS: MANUAL DIFF FLAG NO
[2022-12-05 16:49] LABS: Basophils Absolute Auto 0.1 X10*3/uL (0.0-0.2); Basophils Percent Auto 0.4 % (0-2); Eosinophils Absolute Auto 0.1 X10*3/uL (0.0-0.4); Eosinophils Percent Auto 0.5 % (0-4); Hematocrit 45.3 % (37.0-47.0); Hemoglobin 15.1 g/dl (12.0-16.0); Imm Gran Abs Auto 0.07 X10*3/uL (0.00-0.03); Imm Gran Pct Auto 0.5 % (0.0-0.4); Lymphocytes Absolute Auto 3.5 X10*3/uL (1.2-4.9); Lymphocytes Percent Auto 22.9 % (20-40); Mean Corpuscular HGB Conc 33.3 g/dl (31.0-35.0); Mean Corpuscular Hemoglobin 30.7 pg (27.0-33.0); Mean Corpuscular Volume 92.1 fL (80.0-98.0); Mean Platelet Volume 9.8 fL (9.4-12.3); Monocytes Absolute Auto 0.9 X10*3/uL (0.1-1.2); Monocytes Percent Auto 5.6 % (2-11); Neutrophils Absolute Auto 10.5 x10*3/uL (2.0-8.3); Neutrophils Percent Auto 70.1 % (45-73); Platelet Count 328 X10*3/uL (160-400); Red Blood Count 4.92 X10*6/uL (4.20-5.50); Red Cell Distribution Width 14.7 % (11.0-16.0); White Blood Count 15.1 X10*3/uL (4.8-10.8)
[2022-12-05 16:49] LABS: Appearance Urine Clear; Color Urine Yellow; Glucose Urine UA Negative (Negative); Leukocyte Esterase Urine Negative (Negative); Nitrite Urine Negative (Negative); Specific Gravity - Urine <= 1.005 (1.005-1.025); Urine Blood Negative (Negative); Urine Ketones Negative (Negative); Urine Protein Negative (Neg-Trace)
[2022-12-05 16:55] LABS: UPreg QC Valid YES; Urine Pregnancy NEGATIVE (NEGATIVE)
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
[2022-12-05 17:00] LABS: Amphetamine Screen Urine Not Detected (Not Detect); Barbiturates, Urine Not Detected (Not Detect); Benzodiazepines Screen Urine Not Detected (Not Detect); Cannabinoid Screen Urine Not Detected (Not Detect); Cocaine Screen Urine Not Detected (Not Detect); Fentanyl, urine Not Detected (Not Detect); Opiate Screen Urine Not Detected (Not Detect); Phencyclidine Screen Urine Not Detected (Not Detect)
[2022-12-05 17:01] LABS: COVID-19 Test Negative (Negative); IDNOW Serial# 16C4AD1C
[2022-12-05 17:07] LABS: Acetaminophen LAB < 17 mcg/mL (<30); Alanine Aminotransferase 26 U/L (0-31); Albumin Level 4.7 g/dL (3.5-5.0); Alkaline Phosphatase 69 U/L (39-117); Anion Gap 13 (12-20); Aspartate Amino Transferase 18 U/L (5-31); Bilirubin Total 0.2 mg/dL (0.0-1.0); Blood Urea Nitrogen 6 mg/dL (9-16); Calcium 9.9 mg/dL (8.4-10.2); Carbon Dioxide 27 mmol/L (22-29); Chloride 108 mmol/L (96-108); Creatinine Clr Calc Pharmacy 101.4; Estimated Glomerular Filt Rate > 60; Ethanol < 10 mg/dL; Glucose Random 103 mg/dL (60-115); Potassium 3.7 mmol/L (3.3-5.1); Salicylate < 5.0 mg/dL (15-30); Sodium 144 mmol/L (135-145); Total Protein 6.9 g/dL (6.5-8.0)
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
== END 2022-12-05 19:53 | disposition home or self-care (01) ==
PROVIDERS: Physician Assistant Medical; Emergency Provider Emergency Medicine; PCP Physician Assistant
DX: F41.1 Generalized anxiety disorder (principal); F43.0 Acute stress reaction; F33.1 Major depressive disorder, recurrent, moderate; F17.200 Nicotine dependence, unspecified, uncomplicated; Z20.822 Contact with and (suspected) exposure to COVID-19; Z20.828 Contact with and (suspected) exposure to other viral communicable diseases; Z71.6 Tobacco abuse counseling; Z79.899 Other long term (current) drug therapy
CPT/HCPCS: 36415; 80053; 80143; 80179; 80307; 81003; 81025; 85025; 87635; 99284

== ENCOUNTER 2022-12-10 21:08 | Emergency (ER) | payer MEDICARE, MEDICAID, SELFPAY ==
[2022-12-10 21:15] VITALS: BP 108/72; PULSE 99; RESP 18; TEMP 36.4; O2SAT 100; BMI 31.6
== END 2022-12-11 02:50 | disposition home or self-care (01) ==
PROVIDERS: Emergency Provider Emergency Medicine; PCP Physician Assistant
DX: M54.6 Pain in thoracic spine (principal)
CPT/HCPCS: 96372; 99281; 99284

== ENCOUNTER 2022-12-29 17:15 | Emergency (ER) | payer OTHER, MEDICARE, MEDICAID, SELFPAY ==
--- NOTE | 2022-12-29 | ECG_ITS ---
Test Reason : chest tightness Blood Pressure : / mmHG Vent. Rate : 082 BPM Atrial Rate : 082 BPM P-R Int : 146 ms QRS Dur : 086 ms QT Int : 378 ms P-R-T Axes : 053 008 045 degrees QTc Int : 441 ms Normal sinus rhythm Normal ECG When compared with ECG of 20-NOV-2022 21:34, No significant change was found Referred By: Generic ED Physician Electronically Signed By:BASHIR BROTHERS MD
--- NOTE | ~2022-12-29 | XR_ITS ---
EXAMINATION: CHEST 2 VIEWS CLINICAL INFORMATION: chest tightness. COMPARISON: 11/24/2022. TECHNIQUE: PA and lateral views of the chest obtained. FINDINGS: The lungs are well expanded. No focal infiltrate, effusion, edema, or pneumothorax. Cardiac and mediastinal silhouettes are within normal limits for technique. No acute bony abnormality seen XR/XR chest 2V IMPRESSION: No evidence of acute disease
--- NOTE | ~2022-12-29 | CT_ITS ---
EXAMINATION: CT ABDOMEN AND PELVIS WITH CONTRAST CLINICAL INFORMATION: back and flank pain COMPARISON: 11/24/2022 TECHNIQUE: Multidetector volumetric imaging was performed from the superior aspect of the liver through the pubic symphysis following administration of 85 mL Omnipaque 300 intravenous contrast. Sagittal and coronal reformatted images were obtained on the technologist workstation.. This CT examination was performed using dose optimization techniques as appropriate, variously including the following: *Automated exposure control *Adjustment of mA and/or kV according to patient size (this includes techniques or standardized protocols for targeted exams where dose is matched to indication/reason for exam; i.e. extremities or head) *Use of iterative reconstruction technique DLP: 622 mGy-cm FINDINGS: LUNG BASES: The visualized lung bases are unremarkable. LIVER, GALLBLADDER, AND BILIARY TREE: The liver is normal in size, shape, and attenuation. No focal hepatic lesion or biliary ductal dilatation is present. The gallbladder is unremarkable with no evidence of radiopaque gallstones, gallbladder wall thickening, or obvious pericholecystic inflammatory changes. PANCREAS: Unremarkable. SPLEEN: Unremarkable. ADRENAL GLANDS: Unremarkable. KIDNEYS AND URETERS: The kidneys are normal in size, shape, and attenuation. No hydronephrosis, hydroureter, or calculi seen. No perinephric stranding. BLADDER: Unremarkable. GASTROINTESTINAL TRACT: Anastomotic staple line in the rectosigmoid colon region. There is scattered colonic diverticulosis but no evidence for focal colonic wall thickening or pericolonic inflammatory change to suggest diverticulitis currently. Visualized small bowel is unremarkable ABDOMINAL WALL: Likely prior ventral hernia repair similar to the prior study. I do not appreciate any evidence for herniation time LYMPHOVASCULAR STRUCTURES: No lymphadenopathy. The aorta is unremarkable. PELVIC VISCERA: Physiologic changes with likely physiologic cystic changes bilaterally. The largest cyst on the right measures up to 4.3 cm in size currently and previously measured 5.1 cm in size on the prior study of 11/24/2022 OSSEOUS STRUCTURES: Unremarkable. CT/CT abdomen pelvis w IV con IMPRESSION: Chronic appearing and postoperative changes as described. I do not appreciate any acute intra-abdominal process.
[2022-12-29 17:38] VITALS: BP 140/91; PULSE 83; RESP 18; TEMP 36.2; O2SAT 99; BMI 31.1
[2022-12-29 18:26] LABS: Alanine Aminotransferase 20 U/L (0-31); Albumin Level 4.2 g/dL (3.5-5.0); Alkaline Phosphatase 71 U/L (39-117); Anion Gap 11 (12-20); Aspartate Amino Transferase 14 U/L (5-31); Bilirubin Total 0.3 mg/dL (0.0-1.0); Blood Urea Nitrogen 15 mg/dL (9-16); Calcium 9.2 mg/dL (8.4-10.2); Carbon Dioxide 29 mmol/L (22-29); Chloride 107 mmol/L (96-108); Creatinine Clr Calc Pharmacy 80.7; Estimated Glomerular Filt Rate > 60; Glucose Random 98 mg/dL (60-115); Sodium 143 mmol/L (135-145); Total Protein 6.4 g/dL (6.5-8.0)
[2022-12-29 18:35] LABS: Troponin-I High Sensitivity < 2.7 ng/L (<3.5-17.0)
[2022-12-29 18:37] LABS: Basophils Absolute Auto 0.1 X10*3/uL (0.0-0.2); Basophils Percent Auto 0.3 % (0-2); Eosinophils Absolute Auto 0.1 X10*3/uL (0.0-0.4); Eosinophils Percent Auto 0.8 % (0-4); Hematocrit 44.2 % (37.0-47.0); Hemoglobin 14.8 g/dl (12.0-16.0); Imm Gran Abs Auto 0.08 X10*3/uL (0.00-0.03); Imm Gran Pct Auto 0.6 % (0.0-0.4); Lymphocytes Absolute Auto 5.1 X10*3/uL (1.2-4.9); Lymphocytes Percent Auto 35.4 % (20-40); MANUAL DIFF FLAG SCAN; Mean Corpuscular HGB Conc 33.5 g/dl (31.0-35.0); Mean Corpuscular Hemoglobin 30.9 pg (27.0-33.0); Mean Corpuscular Volume 92.3 fL (80.0-98.0); Mean Platelet Volume 9.6 fL (9.4-12.3); Monocytes Absolute Auto 0.7 X10*3/uL (0.1-1.2); Monocytes Percent Auto 4.7 % (2-11); Neutrophils Absolute Auto 8.3 x10*3/uL (2.0-8.3); Neutrophils Percent Auto 58.2 % (45-73); Platelet Count 340 X10*3/uL (160-400); Red Blood Count 4.79 X10*6/uL (4.20-5.50); Red Cell Distribution Width 14.1 % (11.0-16.0); SCAN SMEAR FLAG 1; White Blood Count 14.3 X10*3/uL (4.8-10.8)
[2022-12-29 19:13] LABS: SLIDE REVIEW VERIFIED
[2022-12-29 19:45] VITALS: BP 120/39; PULSE 100; RESP 16; TEMP 36.7; O2SAT 98
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
[2022-12-29 20:11] LABS: Appearance Urine Clear; Color Urine Yellow; Glucose Urine UA Negative (Negative); Leukocyte Esterase Urine Negative (Negative); Nitrite Urine Negative (Negative); Urine Blood Negative (Negative); Urine Ketones Negative (Negative); Urine Protein Negative (Neg-Trace)
[2022-12-29 20:12] LABS: UPreg QC Valid YES; Urine Pregnancy NEGATIVE (NEGATIVE)
[2022-12-29 20:15] LABS: Bacteria Urine None Seen (None Seen); Hyaline Casts Urine 0-2 /LPF (0-2); Squamous Epithelial Cell Urine 0-2 /HPF (0-2); WBC Urine 0-5 /HPF (0-5)
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
[2022-12-29 20:37] VITALS: RESP 12
[2022-12-29] MEDS: HYDROmorphone HCl 0.5 MG/0.5 ML SYRINGE IVPUSH (20:37)
--- NOTE | 2022-12-29 20:37 | PC.NURSE ---
IV line access obtained 20g R AC administered 15 mg ketorolac IV push and 0.5 mg dilaudid IV push per SEP CT scan to follow
[2022-12-29] MEDS: Ketorolac Tromethamine 15 MG/ML VIAL IVPUSH (20:38)
[2022-12-29 20:47] VITALS: BP 125/49; PULSE 87; RESP 14; O2SAT 99
[2022-12-29] MEDS: iohexoL 350 MG/ML 100 ML INFUS..BTL IV (21:32)
--- NOTE | 2022-12-29 21:40 | PC.NURSE ---
after product manager medical device, pain decreased from 10/10 to 3/10 as stated per pt
[2022-12-29 22:00] VITALS: BP 105/52; PULSE 83; RESP 16; TEMP 36.8; O2SAT 98
--- NOTE | 2022-12-29 23:00 | PC.NURSE ---
Discharge instructions given and explained to pt No apparent distress, no sob, able to speak in full sentences [id number] ambulates safely/independently IV cath tip intact upon removal all of pt's questions answered
== END 2022-12-29 23:00 | disposition home or self-care (01) ==
PROVIDERS: Emergency Provider Emergency Medicine Emergency Medical Services; PCP Physician Assistant
DX: M79.602 Pain in left arm (principal); M54.9 Dorsalgia, unspecified; R07.89 Other chest pain
CPT/HCPCS: 36415; 71046; 74177; 80053; 81001; 81025; 84484; 85025; 93005; 96374; 96375; 99284; 99285; J1170; J1885; Q9967

== ENCOUNTER 2023-02-26 08:44 | Outpatient (AMB) | payer MEDICARE, MEDICAID, SELFPAY ==
[2023-02-26 08:45] VITALS: BP 112/70; PULSE 85; O2SAT 99; BMI 31.0
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
== END 2023-02-26 09:29 | disposition home or self-care (01) ==
PROVIDERS: PCP Physician Assistant; Visit Provider Physician Assistant
DX: M54.14 Radiculopathy, thoracic region (principal)
CPT/HCPCS: 99213

== ENCOUNTER 2023-03-02 08:29 | Outpatient (REF) | payer MEDICARE, MEDICAID, SELFPAY ==
--- NOTE | ~2023-03-02 | XR_ITS ---
EXAMINATION: XR THORACIC SPINE CLINICAL INFORMATION: Back pain thoracic region COMPARISON: 08/08/2021 TECHNIQUE: 3 views of the thoracic spine were obtained. FINDINGS: Moderate multilevel degenerative changes in the thoracic spine with hypertrophic change. Bones are diffusely demineralized. Thoracic vertebral body heights are preserved. XR/XR thoracic spine 3V IMPRESSION: Moderate degenerative changes in the thoracic spine.
== END 2023-03-02 08:30 | disposition home or self-care (01) ==
LOC: HO.HMGCX 08:29
PROVIDERS: PCP Physician Assistant; Visit Provider Physician Assistant
DX: M54.14 Radiculopathy, thoracic region (principal)
CPT/HCPCS: 72072

== ENCOUNTER 2023-03-08 16:49 | Emergency (ER) | payer MEDICARE, MEDICAID, SELFPAY ==
--- NOTE | ~2023-03-08 | XR_ITS ---
EXAMINATION: XR LUMBOSACRAL SPINE CLINICAL INFORMATION: Injury/fall. COMPARISON: Lumbosacral spine done on 08/02/2019. TECHNIQUE: Three views of the lumbosacral spine. FINDINGS: Decreased disc space at L4-L5, may represent degenerative changes. The remainder of the intervertebral disc spaces are well-maintained. The heights of the lumbar vertebrae are well-maintained. Alignment is intact. The posterior appendages are intact. The paraspinal soft tissues are unremarkable. XR/XR lumbar spine 2-3V IMPRESSION: Decreased disc space at L4-L5, new since 08/02/2019, may represent degenerative disc disease. Otherwise unremarkable.
--- NOTE | ~2023-03-08 | XR_ITS ---
EXAMINATION: XR THORACOLUMBAR SPINE CLINICAL INFORMATION: Fall COMPARISON: 03/02/2023 TECHNIQUE: 3 views of the thoracic spine. FINDINGS: Alignment throughout the thoracic spine appears anatomic. Vertebral body heights are maintained. No acute fracture is seen. Mild to moderate scattered endplate osteophytes are noted. XR/XR thoracic spine 2V IMPRESSION: No acute findings identified.
--- NOTE | ~2023-03-08 | XR_ITS ---
EXAMINATION: XR ANKLE, LEFT CLINICAL INFORMATION: Fall COMPARISON: 04/11/2022 TECHNIQUE: AP, lateral, and mortise views of the left ankle. FINDINGS: No fracture. Alignment is anatomic. No erosions. Joint spaces are maintained. Soft tissues are normal. Heel spur. XR/XR ankle LT 2V IMPRESSION: No acute fracture or dislocation.
[2023-03-08 17:41] VITALS: BP 147/69; PULSE 81; RESP 18; TEMP 36.9; O2SAT 99; BMI 30.9
--- NOTE | 2023-03-08 21:27 | ED.BACK ---
HPI - Back Pain/Injury General Chief Complaint: Back Pain/Injury Stated Complaint: Fall at work/Mid backpain/radiating to left leg Time Seen by Provider: 03/08/23 18:58 Source: patient Mode of arrival: ambulatory Limitations: no limitations History of Present Illness HPI Narrative: Patient is a 48-year-old female who presents emergency department for evaluation after a slip and fall at work. She reports that there was not any wet floor sign when she slipped subsequently landing backwards on to the floor. There was no head strike or loss of consciousness. She has been having increasing pain the a the FX spine radiating down to the lumbar spine and into the left / leg. She also reports twisting the left ankle and having pain that is made worse with weight-bearing. She does have a history of chronic back pain for which she is followed by her primary care provider, she has trialed her diclofenac and cyclobenzaprine without any improvement. Denies fevers, chills, burning with micturition, urinary frequency/urgency/hesitancy, bladder or bowel dysfunction, numbness or tingling of the perineum or bilateral legs. Denies any recent surgical procedures, any known immune compromising conditions, personal history of cancer, or IV drug usage. MD elicited complaint: back pain Related Data Home Medications Medication Instructions Recorded Confirmed butalbital 50 mg-acetaminophen 325 1 cap PO Q6H PRN 02/26/23 mg-caffeine 40 mg-codeine 30 mg cap cyclobenzaprine 10 mg tablet 20 mg PO BEDTIME PRN 02/26/23 diclofenac sodium 75 mg 75 mg PO BID 02/26/23 tablet,delayed release ibuprofen 800 mg tablet 800 mg PO TID 02/26/23 paroxetine HCl 20 mg tablet 20 mg PO DAILY 02/26/23 Previous Rx's Medication Instructions Recorded back brace #1 ea 02/26/23 gabapentin 300 mg capsule 300 mg PO BID 30 days #60 caps 02/26/23 Allergies Allergy/AdvReac Type Severity Reaction Status Date / Time topiramate [From TOPAMAX] Allergy Mild NAUSEA & Verified 02/26/23 08:47 VOMITING divalproex sodium AdvReac Unknown NAUSEA & Verified 02/26/23 08:47 [From DEPAKOTE] VOMITING Review of Systems Review of Systems: Constitutional: No weight loss, fever, chills, weakness or fatigue. HEENT: No visual loss, blurred vision, double vision. No hearing loss, sneezing, congestion, runny nose or sore throat. Skin: No rash or itching. Cardiovascular: No chest pain, chest pressure or chest discomfort. No palpitations or pedal edema. Respiratory: No shortness of breath, cough or sputum production. Gastrointestinal: No anorexia, nausea, vomiting or diarrhea. No abdominal pain or blood in stool. Genitourinary: No burning micturition. No urinary frequency or incontinence. Neurologic: No headache, dizziness, syncope, unilateral weakness, ataxia, numbness or tingling in the extremities. No change in bowel or bladder control. Musculoskeletal: + Back pain as noted in HPI. Positive left ankle pain Hematologic: No bleeding or bruising. Lymphatics: No enlarged lymph nodes. Psychiatric:No depression or anxiety. Endocrine: No reports of sweating. No cold or heat intolerance. No polyuria or polydipsia. Yes all other systems are reviewed and are negative PMFSH Past Medical History Attestation statement: The following information was validated with the patient. Source: old records reviewed Medical History Ankle pain, left Anxiety Fibromyalgia Migraine Obesity Restless leg syndrome Wrist pain, left Surgical History H/O LEEP H/O rectal polypectomy History of colectomy History of hernia repair History of surgery History of tonsillectomy History of umbilical hernia repair History of wisdom tooth extraction Family History Family History Father CVD (cardiovascular disease) Myocardial infarction Mother Seizure Dementia Chronic mental illness Myocardial infarction, Onset Age: 40 Sister In good health Son In good health Other Mental health disorder Social History Social History Housing: Apartment Alcohol intake: current Alcohol intake frequency: holidays/special occasions only Patient Tobacco Use Status: Current everyday Tobacco user Tobacco use type: Cigarette Cigarettes Per Day: 10 Years Smoked: 15 e-Cigarette/Vaping Use: Never Used Second Hand Smoke Exposure: No Substance Use Type: Marijuana Advance Directives: Yes Advance Directives on File: Yes Advance Directives Date on File: 09/17/22 service: No Current occupational status: disabled Cognitive needs: No Hearing needs: No Vision needs: No Physical Exam Vital Signs: Vital Signs: Last Vital Signs Temp 98.1 F 03/08/23 22:42 Pulse 88 03/08/23 22:42 Resp 14 03/08/23 22:42 BP 128/58 L 03/08/23 22:42 Pulse Ox 95 03/08/23 22:42 O2 Del Method Room Air 03/08/23 22:42 BMI result Body Mass Index 30.9 Vital signs have been reviewed as normal and appeared to be correct. Blood pressure normal.? Heart rate normal.? Respiration rate normal. Temperature normal.? Oxygen saturation normal. Appearance: Alert.?Oriented to person, place and time. No acute distress.?Normal affect. Eyes: Pupils equal, round and reactive to light.? ENT: Pharynx normal.?? Neck: Normal inspection.? Neck supple.?? CVS: Heart sounds normal. Normal heart rate and rhythm.? Pulses normal; bilateral radial pulses 2+, bilateral posterior tibial/dorsalis pedis pulses 2+.? Respiratory: No respiratory distress.? Lung sounds clear to auscultation bilaterally?? Abdomen: Soft and non-tender. Normoactive bowel sounds. Skin: Skin warm and dry.? Normal skin color.? ?? Extremities: No lower extremity edema.? No calf ttp? 2+ DP/ PT pulse bilaterally. No obvious deformity. Back: + mild paraspinal muscular tenderness from thoracic region to coccyx. No CVA tenderness. No midline spinal tenderness, step-off's, or deformity. Full ROM intact in bilateral lower extremities. No rashes, lesions, areas of induration or fluctuance, or signs of infection noted., Neuro: Moves all extremities spontaneously. 5/5 strength in hip extension/flexion, abduction, adduction. Sensation to light touch intact bilaterally. Patellar and Achilles reflex 2+ bilaterally. No ataxia, gait normal and steady. No focal neuro deficits. Medications Administered Discontinued Medications Generic Name Dose Route Start Last Admin Trade Name Freq PRN Reason Stop Dose Admin Hydromorphone HCl 0.5 mg 03/08/23 21:29 03/08/23 21:35 Hydromorphone Hcl 0.5 Mg/0.5 Ml Syringe IM 03/08/23 21:30 0.5 mg ONCE ONE Administration Protocol Ketorolac Tromethamine 15 mg 03/08/23 21:29 03/08/23 21:35 Ketorolac Tromethamine 15 Mg/Ml Vial IM 03/08/23 21:30 15 mg ONCE ONE Administration Medical Decision Making Medical Decision Making [facility] Narrative: Patient is a 48-year-old female who presents emergency department for evaluation after a mechanical slip and fall at work with acute on chronic back pain in addition to left ankle pain. At the time my examination she is overall well-appearing, resting on the stretcher but reports being in severe pain 10/10. reviewed imaging obtained from nursing protocol orders; XR of the left ankle is without acute fracture dislocation, symptoms most consistent with a sprain. XR of the thoracic and lumbar spine without any acute pathology, no evidence of fracture subluxation. At this time suspect that Pain is most consistent with muscular pain, although cannot completely exclude herniated disc. On neurological exam there are no deficits. Not consistent with spinal fracture, spinal infection, epidural abscess, AAA, or dissection. No high risk past medical history including incontinence, fever, immunosuppression, recent surgery or lumbar puncture, coagulopathy, significant trauma, recent unintentional weight loss, pulsatile mass, history of cancer, history of TB, history of IV drug use that would warrant MRI or CT. Not consistent with ectopic , pyelonephritis, urinary tract infection, renal calculi, pelvic infection, appendicitis, diverticulitis. On exam no concern for cauda equina syndrome. No additional imaging is currently indicated at this time. She was treated with hydromorphone IM, ketorolac IM as she has reported that the combination of these 2 medications as helped with her acute on chronic back pain in the past; She has significant improvement in her pain, and advised follow-up with primary care provider, and patient agreed with plan. Differential Diagnosis Differential Diagnoses: The differential diagnosis associated with the presentation includes ( as noted above) Independent Interpretation I performed an independent interpretation of an: Plain X-Ray ( I personally interpreted XR imaging of the left ankle and agree with radiologist impression, no acute fracture dislocation.) Radiology Impression Discussion of test interpretation with radiology: I have reviewed the radiologist's reading. Radiologist Impression: XR/XR ankle LT 2V IMPRESSION: No acute fracture or dislocation. XR/XR lumbar spine 2-3V IMPRESSION: Decreased disc space at L4-L5, new since 08/02/2019, may represent degenerative disc disease. Otherwise unremarkable. XR/XR thoracic spine 2V IMPRESSION: No acute findings identified. ? Independent Historian Clinical information obtained from an independent historian. History obtained from or confirmed by: Friend External Record Review External record reviewed: Outpatient record Tests considered The following testing was considered but not selected: CT/ MRI, review narrative above Prescription Management I considered prescription management with: Pain Medication Discharge Plan Discharge Clinical Impression: Strain of lumbar region, Thoracic back pain, Ankle sprain Patient Disposition: Home, Self-Care Instructions: Ankle Sprain (ED), How to Use an Elastic Bandage (ED), Acute Low Back Pain (ED), Lower Back Exercises (ED) Additional Instructions: please contact your primary care provider for further follow-up. You may also contact your employer to discuss work related injury. Continue taking all medications as currently prescribed. You can take ibuprofen 200 mg, 3 tablets (600mg) every 6-8 hours as needed for pain, in addition to Tylenol 500 mg, 2 tablets (1,000mg) every 4-6 hours as needed for pain, but not to exceed 3 doses daily (3,000mg).? may return back to emergency department any new or worsening symptoms or concerns. Use the Rj bandage for compression to your ankle, be sure to rest, apply ice, and elevate your leg when possible. Prescriptions: No Action kmprhfmofa-czdhmrqtup-rbz-cod [id number] mg capsule 1 cap PO Q6H PRN paroxetine HCl 20 mg tablet 20 mg PO DAILY diclofenac sodium 75 mg tablet,delayed release (DR/EC) 75 mg PO BID cyclobenzaprine 10 mg tablet 20 mg PO BEDTIME PRN ibuprofen 800 mg tablet 800 mg PO TID (DME) back brace Misc See Rx Instructions .Route Qty: 1 0RF Rx Instructions: As directed gabapentin 300 mg capsule 300 mg PO BID 30 Days Qty: 60 1RF Referrals: Rudy Barth PA-C [Primary Care Provider] - Stand Alone Forms: Work/School Release Interventions: ED Discharge Assessment Last Done: 03/08/23 22:59 Discharge Date/Time: 03/08/23 22:59
[2023-03-08] MEDS: Ketorolac Tromethamine 15 MG/ML VIAL IM (21:35)
[2023-03-08] MEDS: HYDROmorphone HCl 0.5 MG/0.5 ML SYRINGE IM (21:35)
[2023-03-08 22:42] VITALS: BP 128/58; PULSE 88; RESP 14; TEMP 36.7; O2SAT 95
== END 2023-03-08 22:59 | disposition home or self-care (01) ==
PROVIDERS: Emergency Provider Internal Medicine; PCP Physician Assistant
DX: S93.402A Sprain of unspecified ligament of left ankle, initial encounter (principal); M54.50 Low back pain, unspecified; M79.605 Pain in left leg; M54.6 Pain in thoracic spine; M25.572 Pain in left ankle and joints of left foot; F17.210 Nicotine dependence, cigarettes, uncomplicated; W01.0XXA Fall on same level from slipping, tripping and stumbling without subsequent striking against object, initial encounter; Y93.9 Activity, unspecified; Y92.9 Unspecified place or not applicable; Y99.0 Civilian activity done for income or pay; Z79.899 Other long term (current) drug therapy; Z71.6 Tobacco abuse counseling
CPT/HCPCS: 72070; 72100; 73600; 96372; 99284; J1170; J1885

== ENCOUNTER 2023-03-24 02:09 | Emergency (ER) | payer MEDICARE, MEDICAID, SELFPAY ==
[2023-03-24 02:10] VITALS: BP 141/62; PULSE 90; RESP 18; TEMP 36.5; O2SAT 96; BMI 30.9
--- NOTE | 2023-03-24 02:58 | ED.BURNSMOKE ---
HPI - Burn/Smoke Inhalation General Chief complaint: Burn/Smoke Inhalation Stated complaint: Sunburn Time Seen by Provider: 03/24/23 02:57 Source: patient Mode of arrival: ambulatory History of Present Illness HPI Narrative: 48-year-old female presents with sunburn to her back when she was laying out in the sun on Thursday and states that she forgot to apply sunscreen. Related Data Home Medications Medication Instructions Recorded Confirmed butalbital 50 mg-acetaminophen 325 1 cap PO Q6H PRN 02/26/23 mg-caffeine 40 mg-codeine 30 mg cap cyclobenzaprine 10 mg tablet 20 mg PO BEDTIME PRN 02/26/23 diclofenac sodium 75 mg 75 mg PO BID 02/26/23 tablet,delayed release ibuprofen 800 mg tablet 800 mg PO TID 02/26/23 paroxetine HCl 20 mg tablet 20 mg PO DAILY 02/26/23 Previous Rx's Medication Instructions Recorded back brace #1 ea 02/26/23 gabapentin 300 mg capsule 300 mg PO BID 30 days #60 caps 02/26/23 Allergies Allergy/AdvReac Type Severity Reaction Status Date / Time topiramate [From TOPAMAX] Allergy Mild NAUSEA & Verified 03/24/23 02:14 VOMITING divalproex sodium AdvReac Unknown NAUSEA & Verified 03/24/23 02:14 [From DEPAKOTE] VOMITING Review of Systems Review of Systems: Pertinent positives and negatives as stated in HPI PMFSH Past Medical History Source: nursing notes reviewed Medical History Ankle pain, left Anxiety Fibromyalgia Migraine Obesity Restless leg syndrome Wrist pain, left Surgical History H/O LEEP H/O rectal polypectomy History of colectomy History of hernia repair History of surgery History of tonsillectomy History of umbilical hernia repair History of wisdom tooth extraction Family History Family History Father CVD (cardiovascular disease) Myocardial infarction Mother Seizure Dementia Chronic mental illness Myocardial infarction, Onset Age: 40 Sister In good health Son In good health Other Mental health disorder Social History Social History Housing: Apartment Alcohol intake: current Alcohol intake frequency: a few times a week Patient Tobacco Use Status: Current everyday Tobacco user Tobacco use type: Cigarette Cigarettes Per Day: 10 Years Smoked: 15 Smoked in Last 30 Days: Yes e-Cigarette/Vaping Use: Never Used Second Hand Smoke Exposure: No Use of substances other than those prescribed or required for medical reasons: Yes Substance Use Type: Marijuana Substance Use Frequency: Chronic Longstanding Advance Directives: Yes Advance Directives on File: Yes Advance Directives Date on File: 09/17/22 Patient : No service: No Current occupational status: disabled Cognitive needs: No Hearing needs: No Vision needs: No Physical Exam Vital Signs: Vital Signs: Last Vital Signs Temp 97.7 F 03/24/23 02:10 Pulse 90 03/24/23 02:10 Resp 18 03/24/23 02:10 BP 141/62 H 03/24/23 02:10 Pulse Ox 96 03/24/23 02:10 O2 Del Method Room Air 03/24/23 02:10 BMI result Body Mass Index 30.9 VITAL SIGNS: Reviewed. GENERAL: Well developed, well nourished, in no acute distress. HEAD: Normocephalic/atraumatic EYES: PERRLA, EOMI i LUNGS: Normal breath sounds. No adventitious sounds or accessory muscle use. SpO2<96> CARDIOVASCULAR: Regular rate and rhythm without noted murmurs ABDOMEN: Soft, non-tender, non-distended with bowel sounds. BACK/FLANK: Significant 1st degree sunburn to the right flank and back area without blister MUSCULOSKELETAL: No tenderness, deformities, or effusions noted on gross inspection. EXTREMITIES: No cyanosis, clubbing or edema. SKIN: Inspection of the skin reveals no rashes NEUROLOGIC: Alert and oriented x 4. Strength and sensation to light touch were grossly intact x 4. Medical Decision Making Medical Decision Making MDM Narrative: 48-year-old female with 1st degree sunburn, discussed with the patient various treatment modalities which include aloe vera/Tylenol/ibuprofen. She is otherwise discharged home in stable condition Discharge Plan Discharge Clinical Impression: Sunburn Patient Disposition: Home, Self-Care Instructions: Sunburn (ED), Cold Compress or Soak (ED) Additional Instructions: 1. Recommend [id number] Tylenol/ibuprofen as needed for pain control. Recommend [id number] I aloe vera. Return to the ER for any worsening symptoms. Prescriptions: No Action xpnoahhvgx-iuidyydxlm-gzk-cod [id number] mg capsule 1 cap PO Q6H PRN paroxetine HCl 20 mg tablet 20 mg PO DAILY diclofenac sodium 75 mg tablet,delayed release (DR/EC) 75 mg PO BID cyclobenzaprine 10 mg tablet 20 mg PO BEDTIME PRN ibuprofen 800 mg tablet 800 mg PO TID (DME) back brace Misc See Rx Instructions .Route Qty: 1 0RF Rx Instructions: As directed gabapentin 300 mg capsule 300 mg PO BID 30 Days Qty: 60 1RF Referrals: Rudy Barth PA-C [Primary Care Provider] - Stand Alone Forms: Work/School Release Interventions: ED Discharge Assessment Last Done: 03/24/23 03:11 Discharge Date/Time: 03/24/23 03:11
== END 2023-03-24 03:11 | disposition home or self-care (01) ==
PROVIDERS: Emergency Provider Student in an Organized Health Care Education/Training Program; PCP Physician Assistant
DX: L55.0 Sunburn of first degree (principal); F17.210 Nicotine dependence, cigarettes, uncomplicated; Z71.6 Tobacco abuse counseling
CPT/HCPCS: 99282; 99284

== ENCOUNTER 2023-04-23 13:15 | Outpatient (AMB) | payer MEDICARE, MEDICAID, SELFPAY ==
--- NOTE | 2023-04-23 14:14 | MHC.OFFWIV ---
Intake Vital Signs 04/23/23 14:17 Height 5 ft 2 in Weight 169 lb BMI 30.9 BP 140/80 H Blood Pressure Location Lt brachial Position Sitting Pulse 86 Pulse Source Pulse Oximeter Temp 97.8 F Temp Source Temporal Artery Scan Pulse Oximetry (%) 100 Intake Visit Reasons: Est/fever/[phone] Intake Note: Pt is here c/o testing positive for COVID on 04/18/23. Pt states she has not taken any OTC medications. Patient Tobacco Use Status: Current everyday Tobacco user Allergies topiramate [From TOPAMAX] Allergy (Mild, Verified 04/23/23 14:14) NAUSEA & VOMITING divalproex sodium [From DEPAKOTE] Adverse Reaction (Unknown, Verified 04/23/23 14:14) NAUSEA & VOMITING Do you need a note to return to daycare/school/sports/work: Yes HPI Est/fever/[phone] HPI Details 48-year-old patient presents today with ongoing body aches, low-grade fevers since testing positive for COVID 5 days ago on 04/18. She denies any shortness of breath or cough. Feels generally achy and has not been able to go to work. She is seeking work note, and possibly medication prescription for her discomforts. [facility] Medical History Wrist pain, left Ankle pain, left Obesity Restless leg syndrome Migraine Anxiety Fibromyalgia Surgical History H/O rectal polypectomy History of surgery History of hernia repair History of wisdom tooth extraction History of tonsillectomy History of umbilical hernia repair H/O LEEP History of colectomy Family History Father CVD (cardiovascular disease) Myocardial infarction Mother Seizure Dementia Chronic mental illness Myocardial infarction, Onset Age: 40 Sister In good health Son In good health Other Mental health disorder Social History Housing: Apartment Alcohol intake: current Alcohol intake frequency: a few times a week Patient Tobacco Use Status: Current everyday Tobacco user Tobacco use type: Cigarette Cigarettes Per Day: 10 Years Smoked: 15 e-Cigarette/Vaping Use: Never Used Second Hand Smoke Exposure: No Substance Use Type: Marijuana Advance Directives Date on File: 09/17/22 service: No Current occupational status: disabled Cognitive needs: No Hearing needs: No Vision needs: No Physical Exam Vital Signs: Last Vital Signs Temp 97.8 F 04/23/23 14:17 Pulse 86 04/23/23 14:17 BP 140/80 H 04/23/23 14:17 Pulse Ox 100 04/23/23 14:17 BMI result Body Mass Index 30.9 Const General: ill appearing acutely HEENT Head: Yes normal to inspection Ears: hearing grossly normal bilaterally General nose exam: Normal external nose present and Normal nasal mucous membranes and turbinates present Mouth: Normal oral and palatal mucosa present and moist mucous membranes Throat: Yes posterior oropharynx normal Neck Neck: Yes no lymphadenopathy Resp Effort & Inspection: normal respiratory effort and able to speak in complete sentences Auscultation: clear to auscultation bilaterally Cardio Jugular venous distension: no JVD Palpation: normal PMI Rate: regular rate Rhythm: regular rhythm Skin General skin exam: no rashes or lesions noted Extrem General: Yes capillary refill normal and Yes no clubbing, cyanosis or edema Psych Appearance: grossly normal Mental Status: mental status grossly normal Speech and movement: Normal speech and movement present Assessment & Plan Assessment & Plan (1) SARS-CoV-2 positive: Code(s): U07.1 - COVID-19 Plan: Patient has active COVID 19 infection. Recommended conservative measures for symptom treatment. She does not have any Tylenol at home, and requested right prescribe this for her, which I have done. She takes diclofenac b.i.d., which I encouraged she continue. Encouraged increased rest and hydration. I provided her with a work note per her request. If she develops any worsening symptoms, or does not improve with time and conservative measures, she can follow up at the clinic or go to the emergency department for evaluation. She verbalizes understanding and agrees to plan. Medications: New acetaminophen Take 1 tablet every 6 hours as needed for pain/fever. Do not take in combination with Fioricet. 500 mg PO Q6H PRN 60 tabs 0RF fever U07.1 - COVID-19 Coding Level of Care Code Est Pt Level 3 (06588) Diagnoses SARS-CoV-2 positive U07.1
[2023-04-23 14:17] VITALS: BP 140/80; PULSE 86; TEMP 36.6; O2SAT 100; BMI 30.9
== END 2023-04-23 14:55 | disposition home or self-care (01) ==
PROVIDERS: PCP Physician Assistant; Visit Provider Nurse Practitioner Family
DX: U07.1 COVID-19 (principal)
CPT/HCPCS: 99213

== ENCOUNTER 2023-04-28 08:16 | Outpatient (AMB) | payer MEDICARE, MEDICAID, SELFPAY ==
--- NOTE | 2023-04-28 09:10 | MHC.OFFWIV ---
Intake Vital Signs 04/28/23 09:11 Height 5 ft 2 in Weight 169 lb BMI 30.9 BP 140/78 H Blood Pressure Location Rt brachial Position Sitting Pulse 86 Pulse Source Pulse Oximeter Temp 97.6 F Temp Source Temporal Artery Scan Pulse Oximetry (%) 96 Oxygen Delivery Method Room Air Intake Visit Reasons: EP, congestion, headache ([phone]) Intake Note: pt is here for c/o congestion, headache, covid positive 2 days ago, requesting work note Patient Tobacco Use Status: Current everyday Tobacco user Allergies topiramate [From TOPAMAX] Allergy (Mild, Verified 04/28/23 09:12) NAUSEA & VOMITING divalproex sodium [From DEPAKOTE] Adverse Reaction (Unknown, Verified 04/28/23 09:12) NAUSEA & VOMITING Do you need a note to return to daycare/school/sports/work: Yes HPI EP, congestion, headache ([phone]) HPI Details Patient presents for a sick visit. Reporting symptoms of sinus congestion, sore throat and difficulty swallowing. Low-grade fever. No family member is sick. No recent travel. Patient reports symptoms of malaise and fatigue. [facility] Medical History Wrist pain, left Ankle pain, left Obesity Restless leg syndrome Migraine Anxiety Fibromyalgia Surgical History H/O rectal polypectomy History of surgery History of hernia repair History of wisdom tooth extraction History of tonsillectomy History of umbilical hernia repair H/O LEEP History of colectomy Family History Father CVD (cardiovascular disease) Myocardial infarction Mother Seizure Dementia Chronic mental illness Myocardial infarction, Onset Age: 40 Sister In good health Son In good health Other Mental health disorder Social History Housing: Apartment Alcohol intake: current Alcohol intake frequency: a few times a week Patient Tobacco Use Status: Current everyday Tobacco user Tobacco use type: Cigarette Cigarettes Per Day: 10 Years Smoked: 15 e-Cigarette/Vaping Use: Never Used Second Hand Smoke Exposure: No Substance Use Type: Marijuana Advance Directives Date on File: 09/17/22 service: No Current occupational status: disabled Cognitive needs: No Hearing needs: No Vision needs: No Physical Exam Vital Signs: Last Vital Signs Temp 97.6 F 04/28/23 09:11 Pulse 86 04/28/23 09:11 BP 140/78 H 04/28/23 09:11 Pulse Ox 96 04/28/23 09:11 Oxygen Delivery Method Room Air 04/28/23 09:11 BMI result Body Mass Index 30.9 Const General: cooperative and healthy appearing Nutritional Appearance: well nourished Orientation/consciousness: patient oriented x3 Limitations: no limitations HEENT Head: Yes normal to inspection Eyes General: appearance normal, both eyes and all related structures Neck Neck: Yes normal visual inspection Chest Chest palpation & inspection: normal palpation of entire chest wall Resp Effort & Inspection: normal respiratory effort Neuro General: patient oriented x3 Assessment & Plan Assessment & Plan (1) Upper respiratory tract infection: Code(s): J06.9 - Acute upper respiratory infection, unspecified Plan: . Increase fluid intake. Tylenol for aches and pains. If symptoms worsen, follow-up here for a recheck. No antibiotics needed. Note for work given. Coding Level of Care Code Est Pt Level 3 (32436) Diagnoses Upper respiratory tract infection J06.9
[2023-04-28 09:11] VITALS: BP 140/78; PULSE 86; TEMP 36.4; O2SAT 96; BMI 30.9
== END 2023-04-28 10:08 | disposition home or self-care (01) ==
PROVIDERS: PCP Physician Assistant; Visit Provider Internal Medicine
DX: J06.9 Acute upper respiratory infection, unspecified (principal)
CPT/HCPCS: 99213

== ENCOUNTER 2023-05-05 15:57 | Outpatient (REF) | payer MEDICARE, MEDICAID, SELFPAY ==
--- NOTE | ~2023-05-05 | MR_ITS ---
EXAMINATION: MR THORACIC SPINE WITHOUT CONTRAST CLINICAL INFORMATION: Radiculopathy, mid back pain radiating to the mid flank COMPARISON: Thoracic spine MRI 08/19/2021, thoracic radiographs 03/08/2023 TECHNIQUE: MRI of the thoracic spine was obtained using routine sequences without intravenous contrast. FINDINGS: The normal thoracic kyphosis is preserved. There is no evidence of spondylolisthesis. Thoracic vertebral body heights are maintained. No expansile or destructive osseous lesion. The thoracic spinal cord is normal in signal. Stable small left central disc protrusion at T7-T8. No significant spinal canal or neural foraminal stenosis in the thoracic spine. No expansile or destructive osseous lesion. Subcentimeter T2 hyperintense focus in the right kidney is too small to fully characterize. T2 hyperintense focus along the posterior right seventh rib measuring up to 1.2 cm (6-31) is indeterminate and may represent a ganglion cyst. This appears stable compared to the prior study. MR/MR thoracic spine wo con IMPRESSION: No significant spinal canal or neural foraminal stenosis in the thoracic spine. Stable trace left paracentral disc protrusion at T7-T8.
== END 2023-05-05 15:58 | disposition home or self-care (01) ==
LOC: HO.MRI 15:57
PROVIDERS: PCP Physician Assistant; Visit Provider Physician Assistant
DX: M54.14 Radiculopathy, thoracic region (principal)
CPT/HCPCS: 72146

== ENCOUNTER 2023-05-18 15:12 | Outpatient (AMB) | payer MEDICARE, MEDICAID, SELFPAY ==
--- NOTE | 2023-05-18 15:19 | A.OFFPC_ITS ---
Vital Signs 05/18/23 15:22 Height 5 ft 2 in Weight 167 lb 8 oz BMI 30.6 BP 116/76 Blood Pressure Location Lt brachial Position Sitting Pulse 102 H Pulse Source Pulse Oximeter Pulse Oximetry (%) 97 Oxygen Delivery Method Room Air Intake Visit Reasons: Annual Exam Intake Note: Patient is here today for a physical. Nurse Clinical Required: No Coremaker Experimental: Not Required per policy Accompanied by: Self / Same As Patient Allergies topiramate [From TOPAMAX] Allergy (Mild, Verified 05/18/23 15:34) NAUSEA & VOMITING divalproex sodium [From DEPAKOTE] Adverse Reaction (Unknown, Verified 05/18/23 15:34) NAUSEA & VOMITING Medication List - Last Reconciled 05/18/23 by Rudy Barth PA-C acetaminophen 500 mg PO Q6H PRN xgjjwxdyca-gcspdxezfi-akp-cod [id number] mg 1 cap PO Q6H PRN cyclobenzaprine 20 mg PO BEDTIME PRN diclofenac sodium 75 mg PO BID gabapentin 300 mg PO BID 30 days ibuprofen 800 mg PO TID paroxetine HCl 20 mg PO DAILY Tobacco use date assessed: 05/18/23 Dental Screening Dental Screen Date: 05/18/23 Did you have a dental visit in the last 12 months?: Yes Did you have a dental problem in the last 6 months where you did not have access to dental care?: No Was dental information given to patient?: Patient has dentist HPI Annual Exam HPI Details Patient is a 48-year-old female? here today for a routine annual physical.? Patient has a past medical history significant for obesity, tobacco use disorder, fibromyalgia, Migraine disorder,? lumbar spine pain with sciatica, Allergic rhintits. Currently homeless and looking for an apartment. Working part-time at a local [employer] chronic medical conditions. --> reports having left lower quadrant abdominal pain lately and concerned about her high white blood cell count. Has had history of diverticulitis requiring bowel resection in the past. She has called her GI specialist though was told to follow-up with her PCP on getting a abdominal CT scan. .. Hyperlipidemia:? Most recent lipid panel much improved since the addition of statin therapy. .. Tobacco use disorder:? Unfortunately still smoking as isabella has found it very hard to quit smoking.? Thoracic spine pain:? Most recent MRI thoracic spine shows small disc herniation in the thoracic spine. Continues in physical therapy. Has been using tramadol and cyclobenzaprine for her pain? some improvement.? Has been seen by her back surgeon who does not recommend surgery at this time. She is interested in reestablishing care with her chiropractor and doing aquatherapy for physical therapy. Mammogram: Due in June 2023 . Colonoscopy:Has had multiple colonoscopy due to her GI issue , has distory of diverticulitis with status post colectomy . Followed by Dr Damico in [place] Vaccines: Up-to-date with COVID vaccine, up-to-date with pneumonia and tetanus vaccines. Laboratory Tests 11/05/21 02/04/22 11/20/22 16:34 10:21 21:49 WBC 11.5 H RBC 4.28 Creatinine 0.66 Cholesterol 205 D LDL Cholesterol, C alc 115 11/24/22 12/05/22 12/29/22 06:05 16:41 17:57 WBC 14.1 H 15.1 H 14.3 H RBC Creatinine Cholesterol LDL Cholesterol, C alc ? [facility] Medical History Wrist pain, left Ankle pain, left Obesity Restless leg syndrome Migraine Anxiety Fibromyalgia Surgical History H/O rectal polypectomy History of surgery History of hernia repair History of wisdom tooth extraction History of tonsillectomy History of umbilical hernia repair H/O LEEP History of colectomy Family History Father CVD (cardiovascular disease) Myocardial infarction Mother Seizure Dementia Chronic mental illness Myocardial infarction, Onset Age: 40 Sister In good health Son In good health Other Mental health disorder Social History Housing: Apartment Alcohol intake: current Alcohol intake frequency: a few times a week Patient Tobacco Use Status: Current everyday Tobacco user Tobacco use type: Cigarette Cigarettes Per Day: 15 Years Smoked: 15 e-Cigarette/Vaping Use: Never Used Second Hand Smoke Exposure: Yes Substance Use Type: Marijuana Advance Directives Date on File: 09/17/22 service: No Current occupational status: disabled Cognitive needs: No Hearing needs: No Vision needs: No Questionnaire Thrive Questionnaire Date Thrive assessed: 08/08/22 SALOMON-7 AMB Questionnaire SALOMON-7 Date SALOMON - 7 assessed: 08/08/22 Source: Developed by Drs. Ayan Curiel, Brooke Alfaro, Reagan Veronica and colleagues, with an educational cornelia from Present. Review of Systems Const Denies body aches, Denies chills, Denies excessive sweating, Denies fatigue, Denies fever(s) and Denies headache(s) Eyes Denies blurry vision ENT Denies dysphagia, Denies vertigo, Denies dizziness, Denies headache(s), Denies hearing loss and Denies tinnitus Card Denies chest pain, Denies chest pain with activity, Denies syncope, Denies irregular heart rhythm and Denies dyspnea Resp Denies chest congestion, Denies cough, Denies hemoptysis, Denies dyspnea and Denies wheezing GI Denies abdominal pain, Denies melena, Denies hematochezia, Denies coffee ground emesis, Denies dysphagia, Denies diarrhea, Denies nausea and Denies vomiting Denies urinary frequency, Denies dysuria, Denies urinary hesitancy and Denies urinary urgency Musc Denies arthralgias, Denies limited range of motion, Denies muscle cramps and Denies muscle weakness Skin/Breast Denies rash and Denies skin ulcer Neuro Denies Abnormal speech present, Denies confusion, Denies vertigo, Denies dizziness, Denies syncope, Denies headache(s), Denies memory loss and Denies seizure-like activity Psych Denies anxiety, Denies confusion, Denies depression, Denies memory loss, Denies panic attacks and Denies paranoia Endo Denies excessive sweating, Denies fatigue, Denies flushing, Denies polydipsia and Denies polyuria Aller/Immun Denies wheezing Physical exam (Primary Care) Vital Signs: Last Vital Signs Pulse 102 H 05/18/23 15:22 BP 116/76 05/18/23 15:22 Pulse Ox 97 05/18/23 15:22 Oxygen Delivery Method Room Air 05/18/23 15:22 BMI result Body Mass Index 30.6 BMI Assessment/Plan discussion: High Tobacco/Smoking Status: Tobacco use Status Tobacco use date assessed 05/18/23 05/18/23 15:27 Patient Tobacco Use Status Current everyday Tobacco 05/18/23 15:27 Tobacco use type Cigarette 05/18/23 15:27 e-Cigarette/Vaping Use Never Used 05/18/23 15:27 Are you ready to quit: No Tobacco cessation counseling provided: Yes Items discussed: Nicotine replacement Relapse Prevention: discussed the importance of a supportive environment, discussed negative mood or depression after quitting, weight gain after smoking is common and discussed dietary, exercise and/or lifestyle changes Number of minutes spent counselin CPT code: 89326 - 4-10 Minutes Thrive Assessment: Date of Thrive Assessment Date Thrive assessed 08/08/22 05/18/23 15:27 Const Other: Obese General: cooperative, comfortable, no acute distress, alert and awake; No confusion Orientation/consciousness: oriented to person, oriented to place, patient oriented x3 and No confusion HENMT Head: Yes normocephalic Ears: external ears normal and TM's normal bilaterally Face and sinus: No sinus tenderness Mouth: Normal oral and palatal mucosa present and tongue normal Teeth and gingiva: dentition normal and gingiva normal Throat: Yes posterior oropharynx normal, Yes tonsils normal and Yes uvula midline Eyes Conjunctivae: conjunctivae normal Sclerae: sclerae normal Pupils: Equal, round and reactive pupils present EOM: EOMs intact bilaterally Direct Ophthalmoscopy: No no photophobia Neck Neck: Yes no lymphadenopathy, No tender and Yes no JVD Thyroid: Thyroid normal Carotids: no bruits Chest Chest palpation & inspection: no tenderness Resp Effort & Inspection: normal respiratory effort, no audible wheezes, not labored and no stridor Auscultation: no crackles, no rales, no rhonchi and no wheezes Cardio Jugular venous distension: no JVD Rate: regular rate, not bradycardic and not tachycardic Rhythm: regular rhythm Bruits: no carotid bruits Peripheral pulses: Peripheral pulses 2+ throughout GI Inspection: Yes normal to inspection, No abdominal wall ecchymosis and No visible herniation Palpation (GI): Soft to palpation, nontender, no guarding, not rigid and No hepatosplenomegaly present Auscultation: normoactive bowel sounds General: Yes no CVA tenderness Back/Spine/Pelvis Back: no CVA tenderness and No back tenderness Cervical Spine: cervical ROM normal Thoracic/Lumbar Spine: thoracic and lumbar spine normal to inspection, straight leg raise negative bilaterally, No thoraco-lumbar ROM limited and No lumbar spinal tenderness Skin Lesions: no lesions Rashes: no rashes Wounds: no wounds Neuro General: oriented to person, oriented to place, patient oriented x3, CN's II-XI intact bilaterally and No confusion Cranial nerves: Yes Equal, round and reactive pupils present and Yes Normal accommodation reflex present Cognition (Neuro): normal cognition Speech: No Abnormal speech present Gait exam (Neuro): Normal gait present Motor exam (neuro): 5/5 motor strength present throughout Extrem Right upper extremity: full ROM; no cyanosis Left upper extremity: full ROM; no cyanosis Right lower extremity: no edema Left lower extremity: no edema Psych Appearance: grossly normal Mental Status: mental status grossly normal Affect: normal affect Attitude: cooperative Thought process: Normal thought process present Office Procedures Flu Questionnaire Does the patient have a severe egg allergy?: No Does the patient have severe life threatening allergies?: No Does the patient have a fever or illness today?: No Has the patient ever had Guillain-[place] Syndrome?: No Has the patient ever had any past reaction to a flu shot?: No Immunizations flu vacc [id number] 6mos up(PF) 60 mcg(15 mcgx4)/0.5 mL IM syringe Performing Provider: Rudy Barth PA-C [place] [facility] Administered by: ZOË Haro on 05/18/23 15:33 Dose Route Admin Location Dispensed Lot Number Expiration Date [facility] Analytical Sciences Director 0.5 mL IM Right Deltoid 0.5 mL [id number] 01/17/24 04010-896-33 [employer] VIS Given Date VIS Provided VIS Publication Date 05/18/23 Single Vaccine 21 Eligibility Eligibility Date Funding Source Not [facility]FC Eligible 05/18/23 Private pneumoc 20-amador conj-dip cr(PF) 0.5 mL IM syringe Performing Provider: Rudy Barth PA-C Performing Location[place] [facility] Administered by: ZOË Sands on 05/18/23 15:59 Dose Route Admin Location Dispensed Lot Number Expiration Date [place] Analytical Sciences Director 0.5 mL IM Left Deltoid 0.5 mL [id number] 04/19/24 3122-4648-15 WYETH/PFIZER VIS Given Date VIS Provided VIS Publication Date 05/18/23 Single Vaccine 21 Eligibility Eligibility Date Funding Source Not [facility] Eligible 05/18/23 Private Assessment and Plan Assessment & Plan (1) Annual physical exam: Code(s): Z00.00 - Encounter for general adult medical examination without abnormal findings (2) Homelessness: Comment: DISCUSSED CASE W/ IN OFFICE BH; MESSAGE SENT FOR F/U. Code(s): Z59.00 - Homelessness unspecified Plan: Currently homeless. In a senior living in the evenings. She is working at a local [employer]. (3) HLD (hyperlipidemia): Code(s): E78.5 - Hyperlipidemia, unspecified Qualifiers: Hyperlipidemia type: mixed hyperlipidemia Qualified Code(s): E78.2 - Mixed hyperlipidemia Plan: Most recent lipid panel showing borderline high total cholesterol. Advised on lifestyle modifications on reducing her high cholesterol patient agrees and understands. Fasting labs are in the system for her to get done before next office visit. Goal LDL to be below 160 (4) Diverticulitis: Code(s): K57.92 - Diverticulitis of intestine, part unspecified, without perforation or abscess without bleeding Plan: As per HPI patient does have a history of diverticulitis, did have to have a bowel resection due to diverticulitis years ago. Recent labs showing slight leukocytosis. She otherwise denies any diarrhea or blood in stool. Will send for CTs of the abdomen to evaluate for recurrence of acute diverticulitis. (5) Thoracic radiculitis: Code(s): M54.14 - Radiculopathy, thoracic region Plan: Patient does have a small disc herniation in the thoracic spine. Unclear etiology at this time. She would likely benefit from physical therapy. She continues with NSAID/ gabapentin and cyclobenzaprine with only minimal relief of her thoracic spine pain. She would like to reestablish care with her chiropractic specialist for treatment. (6) Smoker: Code(s): F17.200 - Nicotine dependence, unspecified, uncomplicated Plan: Patient does understand she needs to quit smoking. She reports she is not ready to quit at this time. Offered her nicotine replacement and or medication though she declines. (7) Obesity: Code(s): E66.9 - Obesity, unspecified Qualifiers: Obesity type: due to excess calories Obesity classification: adult class 1 (BMI 30 - 34.9) Serious obesity comorbidity presence: without serious comorbidity Body mass index: BMI 33.0-33.9 Qualified Code(s): E66.09 - Other obesity due to excess calories; Z68.33 - Body mass index [BMI] 33.0-33.9, adult Plan: Patient does understand her BMI is over 30 will work on being more physically active and adapting to better eating habits to reduce her weight Orders: Orders Influenza [id number] Immunization 05/18/23 Z23 - Encounter for immunization CT abdomen pelvis w IV con 05/18/23 K57.92 - Diverticulitis of intestine, part unspecified, without perforation or abscess without bleeding Comprehensive [place]. Panel Fast 05/18/23 Z13.1 - Encounter for screening for diabetes mellitus Pneumococcal 20 Immunization 05/18/23 Z13.1 - Encounter for screening for diabetes mellitus, Z23 - Encounter for immunization PT Evaluation and Treatment 05/18/23 M54.14 - Radiculopathy, thoracic region Lipid Panel 05/18/23 E78.2 - Mixed hyperlipidemia Medications: Changed From ibuprofen 800 mg PO TID M54.14 - Radiculopathy, thoracic region To ibuprofen 800 mg PO TID 30 days PRN 90 tabs 1RF pain M54.14 - Radiculopathy, thoracic region Coding Level of Care Code Est Pt Prev Care 40-64y(23645) Diagnoses Annual physical exam Z00.00 Homelessness Z59.00 Mixed hyperlipidemia E78.2 Hyperlipidemia type: mixed hyperlipidemia Diverticulitis K57.92 Thoracic radiculitis M54.14 Smoker F17.200 Class 1 obesity due to excess calories without serious comorbidity with body mass index (BMI) of 33.0 to 33.9 in adult E66.09; Z68.33 Obesity type: due to excess calories Obesity classification: adult class 1 (BMI 30 - 34.9) Serious obesity comorbidity presence: without serious comorbidity Body mass index: BMI 33.0-33.9 Additional Codes Vital Signs *Quality* - CPT code: 37677 - 4-10 Minutes ([id number])
[2023-05-18 15:22] VITALS: BP 116/76; PULSE 102; O2SAT 97; BMI 30.6
== END 2023-05-18 16:05 | disposition home or self-care (01) ==
PROVIDERS: PCP Physician Assistant; Visit Provider Physician Assistant
DX: Z23 Encounter for immunization (principal)
CPT/HCPCS: 90471; 90677; 90686; 99396

== ENCOUNTER 2023-09-03 20:55 | Emergency (ER) | payer MEDICARE, MEDICAID, SELFPAY ==
--- NOTE | ~2023-09-03 | XR_ITS ---
EXAMINATION: XR THORACIC SPINE XR LUMBAR SPINE CLINICAL INFORMATION: Back pain. COMPARISON: MR thoracic spine 05/05/2023. Radiograph lumbar spine 03/08/2023. TECHNIQUE: two views of the thoracic spine and three views of the lumbar spine. FINDINGS: Thoracic: Vertebral body heights are normal. Alignment is anatomic without spondylolisthesis. Intervertebral disc heights are well-maintained. No degenerative disc disease. Paraspinal soft tissues are unremarkable. Lumbar: Vertebral body heights are normal. No fracture or spondylolisthesis. Worsened intervertebral disc height loss at L4-L5 compared to 03/08/2023. Imaged portions of the sacroiliac joints are normal. Surgical anastomosis overlying the region of the rectum. XR/XR thoracic spine 2V IMPRESSION: Thoracic spine: No significant radiographic abnormality. Lumbar spine: 1. Worsened intervertebral disc height loss at L4-L5 compared to 03/08/2023. 2. Otherwise, stable examination compared to 03/08/2023.
--- NOTE | ~2023-09-03 | XR_ITS ---
EXAMINATION: XR THORACIC SPINE XR LUMBAR SPINE CLINICAL INFORMATION: Back pain. COMPARISON: MR thoracic spine 05/05/2023. Radiograph lumbar spine 03/08/2023. TECHNIQUE: two views of the thoracic spine and three views of the lumbar spine. FINDINGS: Thoracic: Vertebral body heights are normal. Alignment is anatomic without spondylolisthesis. Intervertebral disc heights are well-maintained. No degenerative disc disease. Paraspinal soft tissues are unremarkable. Lumbar: Vertebral body heights are normal. No fracture or spondylolisthesis. Worsened intervertebral disc height loss at L4-L5 compared to 03/08/2023. Imaged portions of the sacroiliac joints are normal. Surgical anastomosis overlying the region of the rectum. XR/XR lumbar spine 2-3V IMPRESSION: Thoracic spine: No significant radiographic abnormality. Lumbar spine: 1. Worsened intervertebral disc height loss at L4-L5 compared to 03/08/2023. 2. Otherwise, stable examination compared to 03/08/2023.
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
[2023-09-03 21:21] VITALS: BP 142/47; PULSE 87; RESP 18; TEMP 36.4; O2SAT 98; BMI 30.2
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
[2023-09-03 23:32] VITALS: BP 99/59; PULSE 85; RESP 18; TEMP 36.4; O2SAT 97
--- NOTE | 2023-09-03 23:42 | PC.NURSE ---
This RN took over pt care @ 2300 Plan of care ongoing.
[2023-09-03] MEDS: oxyCODONE HCl Immed Release 5 MG TABLET PO (23:45)
--- NOTE | 2023-09-03 23:48 | PC.NURSE ---
Pt reports 10/10 back pain. Pt ca&ox4, no signs of distress. Pt medicated per sep. Plan of care ongoing.
== END 2023-09-03 23:50 | disposition home or self-care (01) ==
PROVIDERS: Emergency Provider Internal Medicine; PCP Physician Assistant
DX: G89.29 Other chronic pain (principal); M54.9 Dorsalgia, unspecified; F17.210 Nicotine dependence, cigarettes, uncomplicated; Z59.00 Homelessness unspecified
CPT/HCPCS: 72070; 72100; 73030; 99283; 99284

== ENCOUNTER 2023-10-20 15:23 | Outpatient (AMB) | payer MEDICARE, MEDICAID, SELFPAY ==
[2023-10-20 15:26] VITALS: BP 104/70; PULSE 80; RESP 17; O2SAT 98; BMI 28.9
--- NOTE | 2023-10-20 15:26 | A.OFFPC_ITS ---
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 here today for a follow-up visit.? Patient has a past medical history significant for obesity, tobacco use disorder, fibromyalgia, Migraine disorder,? lumbar spine pain with sciatica, Allergic rhintits. Currently living with a friend. 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 .. Hyperlipidemia:? Patient currently managing her borderline high cholesterol with lifestyle and dietary modifications. Was on statin therapy though has stopped taking this medication. .. Tobacco use disorder:? Unfortunately still smoking as isabella has found it very hard to quit smoking.? Thoracic spine pain:? Most recent MRI thoracic spine shows small disc herniation in the thoracic spine. She is done physical therapy though has not been helpful. She is currently using gabapentin and cyclobenzaprine which have been helpful. She is interested in massage therapy and will seek this out on her own. Colon cancer screening: Has upcoming colonoscopy in the summer Mammogram: Had recently had mammogram done at [facility], will try recent records [facility] Medical History Wrist pain, left Ankle pain, left Obesity Restless leg syndrome Migraine Anxiety Fibromyalgia Surgical History H/O rectal polypectomy History of surgery History of hernia repair History of wisdom tooth extraction History of tonsillectomy History of umbilical hernia repair H/O LEEP History of colectomy Family History Father CVD (cardiovascular disease) Myocardial infarction Mother Seizure Dementia Chronic mental illness Myocardial infarction, Onset Age: 40 Sister In good health Son In good health Other Mental health disorder Social History Housing: Apartment Alcohol intake: current Alcohol intake frequency: does not drink Patient Tobacco Use Status: Current everyday Tobacco user Tobacco use type: Cigarette Cigarettes Per Day: 15 Years Smoked: 15 e-Cigarette/Vaping Use: Never Used Second Hand Smoke Exposure: Yes Substance Use Type: Marijuana Advance Directives Date on File: 09/17/22 service: No Current occupational status: disabled Cognitive needs: No Hearing needs: No Vision needs: No Questionnaire PHQ-9 Over the last 2 weeks, how often have you been bothered by any of the following problems? 1. Little interest or pleasure in doing things: more than half the days 2. Feeling down, depressed, or hopeless: more than half the days 3. Trouble falling or staying asleep, or sleeping too much: nearly every day 4. Feeling tired or having little energy: more than half the days 5. Poor appetite or overeating: not at all 6. Feeling bad about yourself - or that you are a failure or have let yourself or your family down: more than half the days 7. Trouble concentrating on things, such as reading the newspaper or watching television: several days 8. Moving or speaking so slowly that other people could have noticed. Or the opposite - being so fidgety or restless that you have been moving around a lot more than usual: not at all 9. Thoughts that you would be better off or of hurting yourself in some way : not at all Total score: 12 89911 - PHQ-9 Billing: Yes Source: Developed by Drs. Ayan Curiel, Brooke Alfaro, Reagan Veronica and colleagues, with an educational cornelia from [employer]. Thrive Questionnaire Date Thrive assessed: 10/20/23 I am a: Patient What is your living situation today?: I have a steady place to live Within the past 12 months, did the food you bought not last and you didn't have the money to get more?: Never true Within the past 12 months, did you worry whether your food would run out before you got money to buy more?: Never true Do you have trouble paying for medicines?: No Do you have trouble getting transportation to medical appointments?: No Do you have trouble paying your heating and electricity bill?: No Do you have trouble taking care of your child, family member or friend?: No Do you have trouble with day-to-day activities such as bathing, preparing meals, shopping, managing finances, etc.?: No Are you currently unemployed and looking for a job?: No Are you interested in more education?: No Please select the resources that you would like help with: None Currently or been in a relationship where the following occur: no concerns reported THRIVE Score: 0 AUDIT C Alcohol Use Questionnaire (AUDIT-C) 1. How often do you have a drink containing alcohol?: Never Total Score: 0 SALOMON-7 AMB Questionnaire SALOMON-7 Date SALOMON - 7 assessed: 10/20/23 Feeling nervous, anxious, or on edge: 2 = More than half the days Not being able to stop or control worryin = More than half the days Worrying too much about different things: 2 = More than half the days Trouble relaxin = More than half the days Being so restless that it is hard to sit still: 0 = Not at all Becoming easily annoyed or irritable: 1 = Several days Feeling afraid as if something awful might happen: 0 = Not at all Total SALOMON-7 score (0-4 normal; 5-9 mild; 10-14 moderate; 15-21 severe): 9 Source: Developed by Drs. Ayan Curiel, Brooke Alfaro, Reagan Veronica and colleagues, with an educational cornelia from [employer]. SALOMON-7 Assessment Billing SALOMON-7 Assessment Tool: SALOMON-7 Assessment 37612 Review of Systems Const Denies headache(s) Eyes Denies loss of vision ENT Denies vertigo, Denies dizziness, Denies headache(s) and Denies sore throat Card Denies chest pain, Denies leg edema and Denies lightheadedness Resp Denies cough, Denies hemoptysis and Denies wheezing GI Denies abdominal pain, Denies melena, Denies constipation, Denies diarrhea and Denies vomiting Denies urinary frequency, Denies dysuria and Denies urinary urgency Musc Denies arthralgias, Denies joint swelling, Denies numbness and Denies tingling Neuro Denies Abnormal speech present, Denies behavioral changes, Denies vertigo, Denies dizziness, Denies headache(s), Denies loss of vision, Denies memory loss, Denies numbness and Denies tingling Psych Denies anxiety, Denies behavioral changes, Denies depression, Denies memory loss and Denies panic attacks Jey/Lymph Denies easy bleeding and Denies easy bruising Aller/Immun Denies wheezing Physical exam (Primary Care) Vital Signs: Last Vital Signs Pulse 80 10/20/23 15:26 Resp 17 10/20/23 15:26 BP 104/70 10/20/23 15:26 Pulse Ox 98 10/20/23 15:26 Oxygen Delivery Method Room Air 10/20/23 15:26 BMI result Body Mass Index 28.9 Tobacco/Smoking Status: Tobacco use Status Tobacco use date assessed 10/20/23 10/20/23 15:35 Patient Tobacco Use Status Current everyday Tobacco 10/20/23 15:35 Tobacco use type Cigarette 10/20/23 15:35 e-Cigarette/Vaping Use Never Used 10/20/23 15:35 Are you ready to quit: No Tobacco cessation counseling provided: Yes Items discussed: Nicotine replacement Relapse Prevention: discussed the importance of a supportive environment, discussed negative mood or depression after quitting, weight gain after smoking is common and discussed dietary, exercise and/or lifestyle changes Number of minutes spent counselin CPT code: 16474 - 4-10 Minutes PHQ-9: PHQ-9 Score PHQ-9: Total score 12 10/20/23 15:39 Thrive Assessment: Date of Thrive Assessment Date Thrive assessed 10/20/23 10/20/23 15:35 Currently or been in a relationship where the following occur: no concerns reported Const General: healthy appearing, no acute distress, alert and awake Nutritional Appearance: well nourished Orientation/consciousness: oriented to person, oriented to place and oriented to time HENMT Ears: TM's normal bilaterally General nose exam: Normal nasal mucous membranes and turbinates present Eyes Conjunctivae: conjunctivae normal Sclerae: sclerae normal Pupils: Equal, round and reactive pupils present Neck Neck: Yes no lymphadenopathy and Yes no JVD Thyroid: Thyroid normal Carotids: no bruits Resp Effort & Inspection: normal respiratory effort and not tachypneic Auscultation: no crackles, no rales, no rhonchi and no wheezes Cardio Rate: regular rate Rhythm: regular rhythm Heart sounds: no murmurs and normal S1 and S2 GI Palpation (GI): Soft to palpation, nontender, no hepatomegaly and no splenomegaly Auscultation: normal bowel sounds Skin General skin exam: no rashes or lesions noted and dry skin Neuro General: oriented to person, oriented to place and oriented to time Cranial nerves: Yes Equal, round and reactive pupils present Speech: No Abnormal speech present Gait exam (Neuro): Normal gait present Motor exam (neuro): no tremor noted Extrem Right upper extremity: full ROM Left upper extremity: full ROM Right lower extremity: full ROM; no edema Left lower extremity: full ROM; no edema Psych Mental Status: mental status grossly normal Speech and movement: Normal speech and movement present Affect: normal affect Attitude: cooperative Thought process: Normal thought process present Assessment and Plan Assessment & Plan (1) HLD (hyperlipidemia): Code(s): E78.5 - Hyperlipidemia, unspecified Qualifiers: Hyperlipidemia type: mixed hyperlipidemia Qualified Code(s): E78.2 - Mixed hyperlipidemia Plan: Most recent lipid panel showing borderline high total cholesterol. Advised on lifestyle modifications on reducing her high cholesterol patient agrees and understands. Goal LDL to be below 160 (2) Thoracic radiculitis: Code(s): M54.14 - Radiculopathy, thoracic region Plan: Patient does have a small disc herniation in the thoracic spine. Unclear etiology at this time. . She continues with NSAID/ gabapentin and cyclobenzaprine with only decent relief of her thoracic spine pain. (3) Smoker: Code(s): F17.200 - Nicotine dependence, unspecified, uncomplicated Plan: Patient does understand she needs to quit smoking. She reports she is not ready to quit at this time. Offered her nicotine replacement and or medication though she declines. She will try to wean her amount of smoking on her own. Medications: Changed From cyclobenzaprine 20 mg PO BEDTIME PRN M54.14 - Radiculopathy, thoracic region To cyclobenzaprine 20 mg (2 x 10 mg) PO BEDTIME 30 days PRN 60 tabs 3RF muscle spasm M54.14 - Radiculopathy, thoracic region Refilled gabapentin 300 mg PO BID 30 days 60 caps 6RF M54.14 - Radiculopathy, thoracic region ibuprofen 800 mg PO TID 30 days PRN 90 tabs 3RF pain M54.14 - Radiculopathy, thoracic region Coding Level of Care Code Est Pt Level 4 (34864) Diagnoses Mixed hyperlipidemia E78.2 Hyperlipidemia type: mixed hyperlipidemia Thoracic radiculitis M54.14 Smoker F17.200 Additional Codes SALOMON-7 Assessment Billing - SALOMON-7 Assessment Tool: SALOMON-7 Assessment 79882 ([id number]) Vital Signs *Quality* - CPT code: 35748 - 4-10 Minutes ([id number])
== END 2023-10-20 16:01 | disposition home or self-care (01) ==
PROVIDERS: PCP Physician Assistant; Visit Provider Physician Assistant
DX: E78.2 Mixed hyperlipidemia (principal); M54.14 Radiculopathy, thoracic region; F17.210 Nicotine dependence, cigarettes, uncomplicated
CPT/HCPCS: 99214

== ENCOUNTER 2023-12-01 16:12 | Outpatient (AMB) | payer MEDICARE, MEDICAID, SELFPAY ==
--- NOTE | 2023-12-01 16:13 | MHC.OFFWIV ---
Intake Vital Signs 12/01/23 16:14 Height 5 ft 2 in Weight 158 lb BMI 28.9 BP 108/70 Blood Pressure Location Rt brachial Position Sitting Pulse 80 Pulse Source Pulse Oximeter Temp 97.9 F Temp Source Temporal Artery Scan Pulse Oximetry (%) 96 Oxygen Delivery Method Room Air Intake Visit Reasons: EP blurry vision in both eyes Intake Note: pt is here for blurry vision in both eyes here and there not consistent, she does state she feels pressure Patient Tobacco Use Status: Current everyday Tobacco user Allergies topiramate [From TOPAMAX] Allergy (Mild, Verified 12/01/23 16:43) NAUSEA & VOMITING divalproex sodium [From DEPAKOTE] Adverse Reaction (Unknown, Verified 12/01/23 16:43) NAUSEA & VOMITING Medication List - Last Reconciled 12/01/23 by Deon Askew, HERBERT acetaminophen 500 mg PO Q6H PRN [id number] [id number] mg 1 cap PO Q6H PRN cyclobenzaprine 20 mg (2 x 10 mg) PO BEDTIME PRN 30 days fluticasone propionate 50 mcg/actuation (Flonase Allergy Relief) 1 spray intranasal BID 30 days gabapentin 300 mg PO BID 30 days ibuprofen 800 mg PO TID PRN 30 days olopatadine 0.7% (Pataday Once Daily Relief) 1 drp ophthalmic (eye) DAILY PRN paroxetine HCl 20 mg PO DAILY Do you need a note to return to daycare/school/sports/work: No HPI HPI Comments History of Present Illness Details Patient is a 48-year-old female in today for a sick visit. Patient states for the past 2 weeks she has had intermittent blurry vision or eye the last from anywhere from 30 minutes to 90 minutes. Patient denies any trauma to the area. Denies recent fevers or infections. Denies any chest pain or shortness of breath. Patient does have history of migraine, she states that she does not have headache today, but that she has not had caffeine and that usually triggers a migraine. Patient's neuro exam in office negative. Negative Yamile-Hallpike maneuver. Patient has not utilized medication today including her migraine medication. [facility] Medical History Wrist pain, left Ankle pain, left Obesity Restless leg syndrome Migraine Anxiety Fibromyalgia Surgical History H/O rectal polypectomy History of surgery History of hernia repair History of wisdom tooth extraction History of tonsillectomy History of umbilical hernia repair H/O LEEP History of colectomy Family History Father CVD (cardiovascular disease) Myocardial infarction Mother Seizure Dementia Chronic mental illness Myocardial infarction, Onset Age: 40 Sister In good health Son In good health Other Mental health disorder Social History Housing: Apartment Alcohol intake: current Alcohol intake frequency: does not drink Patient Tobacco Use Status: Current everyday Tobacco user Tobacco use type: Cigarette Cigarettes Per Day: 15 Years Smoked: 15 e-Cigarette/Vaping Use: Never Used Second Hand Smoke Exposure: Yes Substance Use Type: Marijuana Advance Directives Date on File: 09/17/22 service: No Current occupational status: disabled Cognitive needs: No Hearing needs: No Vision needs: No Review of Systems Const All systems reviewed & are unremarkable except as noted in HPI and below Denies chills, Denies fever(s) and Denies headache(s) Eyes Reports blurry vision (Intermittent. Not during exam.), Denies diplopia, Denies eye discharge and Denies floaters ENT Denies vertigo, Denies dizziness and Denies headache(s) Card Denies chest pain and Denies dyspnea Resp Denies dyspnea GI Denies diarrhea, Denies nausea and Denies vomiting Neuro Denies vertigo, Denies dizziness, Denies headache(s) and Denies Sensory deficit (Neuro) Physical Exam Vital Signs: Last Vital Signs Temp 97.9 F 12/01/23 16:14 Pulse 80 12/01/23 16:14 BP 108/70 12/01/23 16:14 Pulse Ox 96 12/01/23 16:14 Oxygen Delivery Method Room Air 12/01/23 16:14 BMI result Body Mass Index 28.9 Const Other: Appearance: Alert.? Oriented X3.? No acute distress.? Head: Normocephalic, atraumatic, Eyes: Pupils equal, round and reactive to light.?EOMI. PERRLA. No lacerations. ENT: Pharynx normal.?TM intact and pearly barnes. Neck: Normal inspection.? Neck supple.? CVS: Normal heart rate and rhythm.? Pulses normal.? Respiratory: No respiratory distress.? Breath sounds normal.? Neuro: Oriented X 3.? No motor deficit.? No sensory deficit. CN 2-12 intact. Negative [id number]. Orientation/consciousness: patient oriented x3 Eyes Pupils: Equal, round and reactive pupils present Neuro General: patient oriented x3 Cranial nerves: Yes CN's II-XII intact bilaterally, Yes Equal, round and reactive pupils present, Yes Normal accommodation reflex present, Yes Bilaterally intact EOM present, Yes Nystagmus not present, Yes Normal facial strength present, Yes Midline tongue present and Yes Ability to bilaterally elevate shoulders present Cognition (Neuro): normal cognition Gait exam (Neuro): Normal gait present Motor exam (neuro): 5/5 motor strength present throughout and pronator drift Sensory Exam: No Sensory deficit (Neuro) Romberg Test: Negative Assessment & Plan Assessment & Plan (1) Migraine aura occurring with and without headache: Comment: Patient has been instructed to follow-up with PCP. Patient has also been educated to follow up with neurologist due to migraine symptoms. Patient has been educated on signs and symptoms that require her to present immediately to the emergency room. Patient has been instructed she can utilize her migraine medicine today. She can also utilize olopatadine. Code(s): G43.109 - Migraine with aura, not intractable, without status migrainosus Plan: Take your medications as prescribed. If you were prescribed antibiotics today, it is important that you take your medication to their entirety, do not skip any doses, do not finish them early. Follow-up with your primary care provider this week. Return to the emergency department with new or worsening symptoms. Such as fevers, chills, chest pain, shortness of breath, nausea, vomiting, dizziness, headache, vision changes, lethargy In case of emergency call 911 Plan follow up with pcp. Medications: New olopatadine 0.7% (Pataday Once Daily Relief) 1 drp ophthalmic (eye) DAILY PRN 2.5 mL 0RF itching Coding Level of Care Code Est Pt Level 3 (93147) Diagnoses Migraine aura occurring with and without headache G43.109 Time Spent (min) 28
[2023-12-01 16:14] VITALS: BP 108/70; PULSE 80; TEMP 36.6; O2SAT 96; BMI 28.9
== END 2023-12-01 16:48 | disposition home or self-care (01) ==
PROVIDERS: PCP Physician Assistant; Visit Provider Nurse Practitioner Primary Care
DX: G43.109 Migraine with aura, not intractable, without status migrainosus (principal)
CPT/HCPCS: 99213

== ENCOUNTER 2023-12-02 11:02 | Outpatient (AMB) | payer MEDICARE, MEDICAID, SELFPAY ==
[2023-12-02 11:10] VITALS: BP 108/86; PULSE 62; O2SAT 97; BMI 30.4
--- NOTE | 2023-12-02 11:10 | MHC.PC.OV ---
Vital Signs 12/02/23 11:10 Height 5 ft 2 in Weight 166 lb 4 oz BMI 30.4 BP 108/86 Blood Pressure Location Lt brachial Position Sitting Pulse 62 Pulse Source Pulse Oximeter Pulse Oximetry (%) 97 Oxygen Delivery Method Room Air Intake Visit Reasons: issues with vision Intake Note: The patient has been facing vision issues over the past week, experiencing weakness along with double vision and blurred vision. 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: No Accompanied by: Self / Same As Patient Allergies topiramate [From TOPAMAX] Allergy (Mild, Verified 12/02/23 11:36) NAUSEA & VOMITING divalproex sodium [From DEPAKOTE] Adverse Reaction (Unknown, Verified 12/02/23 11:36) NAUSEA & VOMITING Medication List - Last Reconciled 12/02/23 by Rudy Barth PA-C acetaminophen 500 mg PO Q6H PRN [id number]-bayxyzihxy-wih-cod [id number] mg 1 cap PO Q6H PRN cyclobenzaprine 20 mg (2 x 10 mg) PO BEDTIME PRN 30 days fluticasone propionate 50 mcg/actuation (Flonase Allergy Relief) 1 spray intranasal BID 30 days gabapentin 300 mg PO BID 30 days ibuprofen 800 mg PO TID PRN 30 days olopatadine 0.7% (Pataday Once Daily Relief) 1 drp ophthalmic (eye) DAILY PRN paroxetine HCl 20 mg PO DAILY Tobacco use date assessed: 10/20/23 Dental Screening Dental Screen Date: 05/18/23 HPI issues with vision HPI Details Patient is a 48-year-old female with a past medical history significant for generalized anxiety disorder, hyperlipidemia, tobacco dependency here today for problem visit. She reports over the last week having intermittent episodes of blurred vision and tunnel vision and the feeling of heaviness . No headaches or Vomiting. Was seen at urgent care and underwent test for vertigo. She was told to take her migraine medication which helped a bit. Otherwise she has not blood sugar or blood pressure around the time of her incidents. [facility] Medical History Wrist pain, left Ankle pain, left Obesity Restless leg syndrome Migraine Anxiety Fibromyalgia Surgical History H/O rectal polypectomy History of surgery History of hernia repair History of wisdom tooth extraction History of tonsillectomy History of umbilical hernia repair H/O LEEP History of colectomy Family History Father CVD (cardiovascular disease) Myocardial infarction Mother Seizure Dementia Chronic mental illness Myocardial infarction, Onset Age: 40 Sister In good health Son In good health Other Mental health disorder Social History Housing: Apartment Alcohol intake: current Alcohol intake frequency: does not drink Patient Tobacco Use Status: Current everyday Tobacco user Tobacco use type: Cigarette Cigarettes Per Day: 15 Years Smoked: 15 e-Cigarette/Vaping Use: Never Used Second Hand Smoke Exposure: Yes Substance Use Type: Marijuana Advance Directives Date on File: 09/17/22 service: No Current occupational status: disabled Cognitive needs: No Hearing needs: No Vision needs: No Questionnaire Thrive Questionnaire Date Thrive assessed: 10/20/23 SLAOMON-7 AMB Questionnaire SALOMON-7 Date SALOMON - 7 assessed: 10/20/23 Source: Developed by Drs. Ayan Curiel, Brooke Alfaro, Reagan Veronica and colleagues, with an educational cornelia from [employer]. Review of Systems Const Denies headache(s) Eyes Denies loss of vision ENT Denies vertigo, Denies dizziness, Denies headache(s) and Denies sore throat Card Denies chest pain, Denies leg edema and Denies lightheadedness Resp Denies cough, Denies hemoptysis and Denies wheezing GI Denies abdominal pain, Denies melena, Denies constipation, Denies diarrhea and Denies vomiting Denies urinary frequency, Denies dysuria and Denies urinary urgency Musc Denies arthralgias, Denies joint swelling, Denies numbness and Denies tingling Neuro Denies Abnormal speech present, Denies behavioral changes, Denies vertigo, Denies dizziness, Denies headache(s), Denies loss of vision, Denies memory loss, Denies numbness and Denies tingling Psych Denies anxiety, Denies behavioral changes, Denies depression, Denies memory loss and Denies panic attacks Jey/Lymph Denies easy bleeding and Denies easy bruising Aller/Immun Denies wheezing Physical exam (Primary Care) Vital Signs: Last Vital Signs Pulse 62 12/02/23 11:10 BP 108/86 12/02/23 11:10 Pulse Ox 97 12/02/23 11:10 Oxygen Delivery Method Room Air 12/02/23 11:10 BMI result Body Mass Index 30.4 Tobacco/Smoking Status: Tobacco use Status Tobacco use date assessed 10/20/23 12/02/23 11:11 Patient Tobacco Use Status Current everyday Tobacco 12/02/23 11:11 Tobacco use type Cigarette 12/02/23 11:11 e-Cigarette/Vaping Use Never Used 12/02/23 11:11 Thrive Assessment: Date of Thrive Assessment Date Thrive assessed 10/20/23 12/02/23 11:11 Const General: healthy appearing, no acute distress, alert and awake Nutritional Appearance: well nourished Orientation/consciousness: oriented to person, oriented to place and oriented to time HENMT Ears: TM's normal bilaterally General nose exam: Normal nasal mucous membranes and turbinates present Eyes Other: NO NOTABLE ERYTHEMA OF THE SCLERA OR CONJUNCTIVA, NO NOTABLE DRAINAGE FROM THE EYE. PUPILS REACTIVE TO LIGHT. NO PERIPHERAL FEEL VISUAL DEFECTS AT THIS TIME. Conjunctivae: conjunctivae normal Sclerae: sclerae normal Pupils: Equal, round and reactive pupils present Neck Neck: Yes no lymphadenopathy and Yes no JVD Thyroid: Thyroid normal Carotids: no bruits Resp Effort & Inspection: normal respiratory effort and not tachypneic Auscultation: no crackles, no rales, no rhonchi and no wheezes Cardio Rate: regular rate Rhythm: regular rhythm Heart sounds: no murmurs and normal S1 and S2 GI Palpation (GI): Soft to palpation, nontender, no hepatomegaly and no splenomegaly Auscultation: normal bowel sounds Skin General skin exam: no rashes or lesions noted and dry skin Neuro General: oriented to person, oriented to place and oriented to time Cranial nerves: Yes Equal, round and reactive pupils present Speech: No Abnormal speech present Gait exam (Neuro): Normal gait present Motor exam (neuro): no tremor noted Extrem Right upper extremity: full ROM Left upper extremity: full ROM Right lower extremity: full ROM; no edema Left lower extremity: full ROM; no edema Psych Mental Status: mental status grossly normal Speech and movement: Normal speech and movement present Affect: normal affect Attitude: cooperative Thought process: Normal thought process present Assessment and Plan Assessment & Plan (1) Blurred vision, bilateral: Code(s): H53.8 - Other visual disturbances Plan: Unclear etiology to patient's intermittent episodes blurred vision and tunnel vision. Send for nonfasting labs evaluate CBC and sugars. Will try for CT with contrast to evaluate for intracranial arterial stenosis. Will send referral to document design specialist for evaluation of a retina. (2) Tunnel vision: Code(s): H53.489 - Generalized contraction of visual field, unspecified eye Qualifiers: Laterality: bilateral Qualified Code(s): H53.483 - Generalized contraction of visual field, bilateral Orders: Orders CT head/brain w IV con Today H53.8 - Other visual disturbances Basic Metabolic Panel Today H53.483 - Generalized contraction of visual field, bilateral Complete Blood Count no Diff Today H53.483 - Generalized contraction of visual field, bilateral Referrals Ophthalmology Referral H53.8 - Other visual disturbances Coding Level of Care Code Est Pt Level 3 (54765) Diagnoses Blurred vision, bilateral H53.8 Tunnel visual field constriction of both eyes H53.483 Laterality: bilateral
== END 2023-12-02 11:51 | disposition home or self-care (01) ==
PROVIDERS: PCP Physician Assistant; Visit Provider Physician Assistant
DX: H53.8 Other visual disturbances (principal); H53.483 Generalized contraction of visual field, bilateral
CPT/HCPCS: 99213

== ENCOUNTER 2023-12-07 12:19 | Outpatient (REF) | payer MEDICARE, MEDICAID, SELFPAY ==
[2023-12-07 13:40] LABS: Hematocrit 42.5 % (37.0-47.0); Hemoglobin 14.4 g/dl (12.0-16.0); Mean Corpuscular HGB Conc 33.9 g/dl (31.0-35.0); Mean Corpuscular Hemoglobin 32.2 pg (27.0-33.0); Mean Corpuscular Volume 95.1 fL (80.0-98.0); Mean Platelet Volume 9.7 fL (9.4-12.3); Platelet Count 339 X10*3/uL (160-400); Red Blood Count 4.47 X10*6/uL (4.20-5.50); Red Cell Distribution Width 14.1 % (11.0-16.0)
[2023-12-07 14:20] LABS: Anion Gap 14 (12-20); Blood Urea Nitrogen 18 mg/dL (9-16); Calcium 9.6 mg/dL (8.4-10.2); Carbon Dioxide 24 mmol/L (22-29); Chloride 107 mmol/L (96-108); Estimated Glomerular Filt Rate > 60; Glucose Random 80 mg/dL (60-115); Potassium 4.1 mmol/L (3.3-5.1); Sodium 141 mmol/L (135-145)
== END 2023-12-07 12:20 | disposition home or self-care (01) ==
LOC: HO.LAB 12:19
PROVIDERS: PCP Physician Assistant; Visit Provider Physician Assistant
DX: H53.483 Generalized contraction of visual field, bilateral (principal)
CPT/HCPCS: 36415; 80048; 85027

== ENCOUNTER 2024-02-05 09:57 | Emergency (ER) | payer MEDICARE, MEDICAID, SELFPAY ==
--- NOTE | ~2024-02-05 | XR_ITS ---
EXAMINATION: XR FOOT, LEFT CLINICAL INFORMATION: Fall, foot pain COMPARISON: None available. TECHNIQUE: AP, lateral, and oblique views of the left foot. A preliminary report was issued on 02/05/24 FINDINGS: The bones are normal. There is soft tissue swelling. No fracture. Alignment is anatomic. Joint spaces are maintained. Small plantar calcaneal spur. XR/XR foot LT min 3V IMPRESSION: Soft tissue swelling. Electronically signed by: Lakeshia Parnell MD 03/27/2024 07:38 AM EDT
--- NOTE | ~2024-02-05 | CT_ITS ---
EXAMINATION: CT HEAD WITHOUT CONTRAST CT CERVICAL SPINE WITHOUT CONTRAST CLINICAL INFORMATION: Fall. Dizziness. COMPARISON: CT head and cervical spine from 11/24/2022. TECHNIQUE: Contiguous axial imaging was performed from the skull base to vertex without intravenous administration of contrast. Contiguous axial imaging was performed from the upper chest through the skull base without intravenous administration of contrast. Coronal and sagittal reformats were obtained at the acquisition workstation. This CT examination was performed using dose optimization techniques as appropriate, variously including the following: *Automated exposure control. *Adjustment of mA and/or kV according to patient size (this includes techniques or standardized protocols for targeted exams where dose is matched to indication/reason for exam; i.e. extremities or head). *Use of iterative reconstruction technique. DLP: 853 mGy-cm FINDINGS: Head: There is no evidence of acute intracranial hemorrhage or edematous territorial infarction. Romero-white matter differentiation is preserved. There is no abnormal attenuation within the brain parenchyma. The ventricles are normal in morphology and size. No evidence for obstructive hydrocephalus. No abnormal mass effect or midline shift. No extra-axial fluid collections. No acute soft tissue or osseous abnormalities. The mastoid air cells and visualized paranasal sinuses are clear. Cervical Spine: The atlantooccipital and atlantoaxial articulations remain well aligned. Mild reversal of the normal cervical lordosis. Minimal degenerative anterolisthesis of C4 on C5. Otherwise, there is anatomic alignment of the vertebral bodies and posterior elements. No evidence of acute fracture or subluxation. The vertebral body heights are maintained. Moderate degenerative disc disease from C5-C7. Mild degenerative disc disease at all additional levels. Facet and uncovertebral joint arthropathy leads to osseous encroachment on the neural foramina from C5-C7. There is no prevertebral soft tissue swelling. The thyroid gland and remaining cervical soft tissues are within normal limits. Biapical paraseptal emphysema. The lung apices demonstrate no additional abnormalities. CT/CT cervical spine wo IV con IMPRESSION: 1. No evidence of acute intracranial hemorrhage or edematous territorial infarction. 2. No evidence of acute fracture or traumatic subluxation of the cervical spine. 3. Moderate multilevel degenerative spondyloarthropathy of the cervical spine.
--- NOTE | ~2024-02-05 | XR_ITS ---
EXAMINATION: XR ANKLE, LEFT CLINICAL INFORMATION: Fall this a.m. COMPARISON: None available. TECHNIQUE: AP, lateral, and mortise views of the left ankle. FINDINGS: Soft tissue swelling lateral malleolus. No fracture or dislocation. Ankle mortise is congruent. XR/XR ankle LT min 3V IMPRESSION: Soft tissue swelling lateral malleolus. No fracture or dislocation. Electronically signed by: Waylon Pritchard MD 03/24/2024 05:37 PM EDT
[2024-02-05 10:00] VITALS: BP 127/62; PULSE 87; RESP 19; TEMP 36.6; O2SAT 100; BMI 29.1
--- NOTE | 2024-02-05 10:18 | ED.GENADULT ---
HPI - General Adult General Chief complaint: Dizziness Stated complaint: L Ankle Injury 02/05/24 Dizzy Etc Time Seen by Provider: 02/05/24 10:17 Source: patient and family (patient's brother and patient's sister in law) Mode of arrival: ambulatory Limitations: no limitations History of Present Illness ED Provider: Anna Mckeon PA-C HPI narrative: A 49-year-old individual assigned female at , with a PMHx significant for anxiety, fibromyalgia, migraines, and restless leg syndrome, presents to the emergency room accompanied by her brother and sister in law, complaining of left ankle pain. Patient reports that she woke up and went outside her camper to take out the trash. While going down the steps, she fell. There are a total of 3 steps. She mentions feeling dizzy beforehand, although she did not experience room-spinning. She is uncertain if she lost her balance. She denies hitting her head and is unsure if she briefly lost consciousness. She states she hasn't felt right since awakening this morning. Upon falling, she was unable to bear weight on her foot, and her friend assisted her into a chair. Her brother was subsequently called to bring her to the ER. The patient denies any headache, vision changes, neck pain, chest pain, shortness of breath, palpitations, nausea/vomiting, abdominal pain, back pain, urinary symptoms, fever, chills, or weakness. Denies changes in speech, tingling sensations, or numbness. Severity: mild Severity scale (1-10): 4 Relieving factors: none Exacerbating factors: none Associated symptoms: denies other symptoms Treatments prior to arrival: none Related Data Home Medications ?Medication ?Instructions ?Recorded ?Confirmed butalbital 50 mg-acetaminophen 325 1 cap PO Q6H PRN 02/26/23 12/02/23 mg-caffeine 40 mg-codeine 30 mg cap paroxetine HCl 20 mg tablet 20 mg PO DAILY 02/26/23 12/02/23 Previous Rx's ?Medication ?Instructions ?Recorded acetaminophen 500 mg tablet 500 mg PO Q6H PRN fever #60 tabs 04/23/23 fluticasone propionate 50 1 spray intranasal BID 30 days #16 05/25/23 mcg/actuation nasal grams spray,suspension (Flonase Allergy Relief) cyclobenzaprine 10 mg tablet 20 mg (2 x 10 mg) PO BEDTIME PRN 10/20/23 muscle spasm 30 days #60 tabs ibuprofen 800 mg tablet 800 mg PO TID PRN pain 30 days #90 10/20/23 tabs olopatadine 0.7 % eye drops 1 drp ophthalmic (eye) DAILY PRN 12/01/23 (Pataday Once Daily Relief) itching #2.5 mL gabapentin 300 mg capsule 300 mg PO BID 30 days #60 caps 01/05/24 Allergies Allergy/AdvReac Type Severity Reaction Status Date / Time topiramate [From TOPAMAX] Allergy Mild NAUSEA & Verified 02/05/24 10:02 VOMITING divalproex sodium AdvReac Unknown NAUSEA & Verified 02/05/24 10:02 [From DEPAKOTE] VOMITING Review of Systems Constitutional: Constitutional: Reports no additional constitutional complaints, Denies chills, Denies fever(s) and Denies night sweats Eyes: Eyes: Reports no additional eye complaints, Denies blurry vision, Denies change in vision, Denies diplopia, Denies eye discharge, Denies loss of vision and Denies eye pain ENT: Reports dizziness Cardiovascular: Cardiovascular: Reports no additional cardiovascular complaints, Denies chest pain, Denies lightheadedness, Denies Loss of Consciousness and Denies dyspnea Respiratory: Respiratory: Reports no additional respiratory complaints and Denies dyspnea Gastrointestinal: Gastrointestinal: Reports no additional gastrointestinal complaints, Denies abdominal pain, Denies melena, Denies hematochezia, Denies change in bowel habits and Denies change in stool character Genitourinary: Genitourinary: Denies hematuria, Denies urinary frequency, Denies dysuria, Denies urinary incontinence, Denies urinary hesitancy and Denies urinary urgency Musculoskeletal: Musculoskeletal: Reports no additional musculoskeletal complaints, Denies numbness and Denies tingling Comments: left ankle pain Neurologic: Reports dizziness, Denies loss of vision, Denies numbness and Denies tingling Psychiatric: Psychiatric: Reports no additional psychiatric complaints Endocrine: Endocrine: Reports no additional endocrine complaints Hematologic/Lymphatic: Hematologic/Lymphatic: Reports no additional hematologic/lymphatic complaints Allergic/Immunologic: Allergic/Immunologic: Reports no additional allergic/immunologic complaints PMFSH Past Medical History Attestation statement: The following information was validated with the patient. (all information validated with the patient's brother and sister in law) Source: old records reviewed, obtained from family (patient's brother and sister in law provided additional history and confirmed the history provided by the patient.) and nursing notes reviewed Medical History Wrist pain, left Ankle pain, left Obesity Restless leg syndrome Migraine Anxiety Fibromyalgia Surgical History H/O rectal polypectomy History of surgery History of hernia repair History of wisdom tooth extraction History of tonsillectomy History of umbilical hernia repair H/O LEEP History of colectomy Family History Family History Father CVD (cardiovascular disease) Myocardial infarction Mother Seizure Dementia Chronic mental illness Myocardial infarction, Onset Age: 40 Sister In good health Son In good health Other Mental health disorder Social History Social History Housing: Apartment Alcohol intake: current Alcohol intake frequency: does not drink Patient Tobacco Use Status: Current everyday Tobacco user Tobacco use type: Cigarette Cigarettes Per Day: 15 Years Smoked: 15 e-Cigarette/Vaping Use: Never Used Second Hand Smoke Exposure: Yes Substance Use Type: Marijuana Advance Directives: Yes Advance Directives on File: Yes Advance Directives Date on File: 09/17/22 service: No Current occupational status: disabled Cognitive needs: No Hearing needs: No Vision needs: No Physical Exam ED Vital Signs: Vital Signs - 24 hr 02/05/24 10:00 02/05/24 12:08 02/05/24 14:53 Temperature 98 F 98.0 F Pulse Rate 87 87 Respiratory Rate 19 18 18 Blood Pressure 127/62 127/62 Pulse Oximetry 100 100 Oxygen Delivery Method Room Air Room Air BMI result Body Mass Index 29.1 Const General: cooperative, no acute distress, alert and awake Nutritional Appearance: well nourished Orientation/consciousness: patient oriented x3 Limitations: no limitations HENMT Head: Yes normal to inspection and Yes atraumatic Ears: hearing grossly normal bilaterally and external ears normal General nose exam: Normal external nose present, no nasal discharge noted and no epistaxis Face and sinus: Yes normal facial exam, No abrasion and No laceration Mouth: Normal oral and palatal mucosa present, no drooling and no muffled voice Eyes General: appearance normal, both eyes and all related structures Periorbital: periorbital findings normal Eyelids: Yes eyelids normal Conjunctivae: conjunctivae normal Pupils: Equal, round and reactive pupils present EOM: EOMs intact bilaterally Neck Neck: Yes normal visual inspection, Yes full ROM and Yes no lymphadenopathy Chest Chest palpation & inspection: normal inspection of the chest Resp Effort & Inspection: normal respiratory effort and able to speak in complete sentences GI Inspection: Yes normal to inspection Neuro General: patient oriented x3 and moves all extremities Cranial nerves: Yes Equal, round and reactive pupils present Cognition (Neuro): normal cognition Extrem General: Yes normal to inspection, Yes full ROM and Yes capillary refill normal Right upper extremity: normal to inspection and full ROM Left upper extremity: normal to inspection and full ROM Right lower extremity: normal to inspection and full ROM Left lower extremity: full ROM and ankle Details: abnormal to inspection Details: not obviously dislocated, bone not obviously exposed and nt erythematous, tenderness Location: of the lateral malleolus (left lateral malleolus ), swelling and no edema; no warmth, no abrasions, no lacerations and no ecchymosis; no cyanosis Psych Appearance: grossly normal Mental Status: mental status grossly normal Affect: normal affect Attitude: cooperative Thought process: Normal thought process present Thought content: Normal thought content present Insight: Good insight present (Psych) Medications Administered Discontinued Medications Generic Name Dose Route Start Last Admin Trade Name Freq PRN Reason Stop Dose Admin Sodium Chloride 1,000 mls @ 999 mls/hr 02/05/24 10:30 02/05/24 14:03 Ns IV 02/05/24 11:30 Infused .Q1H1M PACO Infusion Morphine Sulfate 4 mg 02/05/24 11:33 02/05/24 12:08 Morphine Sulfate 4 Mg/Ml Cartridge IVPUSH 02/05/24 11:34 4 mg ONCE ONE Administration Protocol Ondansetron HCl 4 mg 02/05/24 11:33 02/05/24 12:08 Ondansetron Hcl 4 Mg/2 Ml Vial IVPUSH 02/05/24 11:34 4 mg ONCE ONE Administration Medical Decision Making Medical Decision Making MDM Narrative: A 49-year-old individual assigned female at , with a PMHx significant for anxiety, fibromyalgia, migraines, and restless leg syndrome, presents to the emergency room accompanied by her brother and sister in law, complaining of left ankle pain. On arrival, the patient is hemodynamically stable and in no acute distress. She is alert and oriented x3; portraying no neurological deficits. Left lateral malleolus is tender to palpation and edematous, no erythema or contusion. Strength is 4/5 on left foot, all other extremities are 5/5. Remaining PE is unremarkable. Labs are unremarkable other than WBC 11.9, U/A is negative, influenza A/B, RSV and sars cov2 is negative. EKG portrays sinus rate and rhythm. At this time, I have low suspicion for CVA due to normal neurological examination, normal head and spinal CT results. Foot and ankle x-ray portray no fractures. Due to history and diagnostics the patients symptoms are most consistent with ankle sprain. Plan to discharge patient with walking boot and crutches. May use cold/heat compress, NSAIDs as needed. Return precautions discussed, patient has clear understanding. Differential Diagnosis Differential Diagnoses: The differential diagnosis associated with the presentation includes ankle fracture, ankle sprain, ankle strain, tendonitis, stress fracture vertigo Admission/Observation Consideration of admission/observation: Escalation of care including admission/observation considered Patient would have been admitted to the hospital had her work up had any findings where hospital admission was appropriate and her clinical presentation warranted hospital admission. Lab Data [facility] Lab Attestation statement: I reviewed the patient's lab results. My interpretation of these results are in the [facility] Rationale portion of this note. 02/05/24 11:25 02/05/24 11:25 Labs: Lab Results 02/05/24 02/05/24 Range/Units 11:25 12:01 WBC 11.9 H (4.8-10.8) X10*3/uL RBC 4.40 (4.20-5.50) X10*6/uL Hgb 14.5 (12.0-16.0) g/dl Hct 40.7 (37.0-47.0) % MCV 92.5 (80.0-98.0) fL MCH 33.0 (27.0-33.0) pg MCHC 35.6 H (31.0-35.0) g/dl RDW 13.6 (11.0-16.0) % Plt Count 296 (160-400) X10*3/uL MPV 9.4 (9.4-12.3) fL Immature Gran % (Auto) 0.3 (0.0-0.4) % Neut % (Auto) 79.0 H (45-73) % Lymph % (Auto) 15.6 L (20-40) % [place] % (Auto) 4.5 (2-11) % Eos % (Auto) 0.2 (0-4) % Baso % (Auto) 0.4 (0-2) % Lymph # (Auto) 1.9 (1.2-4.9) X10*3/uL [place] # (Auto) 0.5 (0.1-1.2) X10*3/uL Eos # (Auto) 0.0 (0.0-0.4) X10*3/uL Baso # (Auto) 0.1 (0.0-0.2) X10*3/uL Abs Immat Gran (auto) 0.04 H (0.00-0.03) X10*3/uL Absolute Neuts (auto) 9.4 H (2.0-8.3) x10*3/uL Absolute Nucleated RBC 0.000 (0.0-0.012) X10*3/uL Nucleated RBC % (auto) 0.0 (0.0-0.2) /100WBC Sodium 140 (135-145) mmol/L Potassium 4.0 (3.3-5.1) mmol/L Chloride 107 (96-108) mmol/L Carbon Dioxide 23 (22-29) mmol/L Anion Gap 14 (12-20) BUN 10 (9-16) mg/dL Creatinine 0.64 (0.5-1.4) mg/dL Estim Creat Clear Calc 97.8 Estimated GFR > 60 Random Glucose 88 (60-115) mg/dL Calcium 9.3 (8.4-10.2) mg/dL Magnesium 2.2 (1.6-2.6) mg/dL Total Bilirubin 0.3 (0.0-1.0) mg/dL AST 19 D (5-31) U/L ALT 17 (0-31) U/L Alkaline Phosphatase 67 D (39-117) U/L Troponin I High Sens < 2.7 (<3.5-17.0) ng/L Total Protein 6.6 (6.5-8.0) g/dL Albumin 4.3 (3.5-5.0) g/dL Urine Color Yellow Urine Appearance Clear Urine pH 7.5 (5.0-9.0) Ur Specific [place] <= 1.005 (1.005-1.025) Urine Protein Negative (Neg-Trace) mg/dL Urine Glucose (UA) Negative (Negative) mg/dL Urine Ketones Trace (Negative) mg/dL Urine Blood Negative (Negative) Urine Nitrite Negative (Negative) Ur Leukocyte Esterase Negative (Negative) Influenza Type A (PCR) NEGATIVE (Negative) Influenza Type B (PCR) NEGATIVE (Negative) RSV RNA Qual (PCR) NEGATIVE (Negative) SARS-CoV-2 RNA (RT-PCR) NEGATIVE (Negative) Independent Interpretation I performed an independent interpretation of an: EKG, Plain X-Ray and CT Scan Interpretation: My interpretation is in agreement with the radiologist's impression of these imaging studies. EXAMINATION: CT HEAD WITHOUT CONTRAST CT CERVICAL SPINE WITHOUT CONTRAST CLINICAL INFORMATION: Fall. Dizziness. COMPARISON: CT head and cervical spine from 11/24/2022. TECHNIQUE: Contiguous axial imaging was performed from the skull base to vertex without intravenous administration of contrast. Contiguous axial imaging was performed from the upper chest through the skull base without intravenous administration of contrast. Coronal and sagittal reformats were obtained at the acquisition workstation. This CT examination was performed using dose optimization techniques as appropriate, variously including the following: *Automated exposure control. *Adjustment of mA and/or kV according to patient size (this includes techniques or standardized protocols for targeted exams where dose is matched to indication/reason for exam; i.e. extremities or head). *Use of iterative reconstruction technique. DLP: 853 mGy-cm FINDINGS: Head: There is no evidence of acute intracranial hemorrhage or edematous territorial infarction. Romero-white matter differentiation is preserved. There is no abnormal attenuation within the brain parenchyma. The ventricles are normal in morphology and size. No evidence for obstructive hydrocephalus. No abnormal mass effect or midline shift. No extra-axial fluid collections. No acute soft tissue or osseous abnormalities. The mastoid air cells and visualized paranasal sinuses are clear. Cervical Spine: The atlantooccipital and atlantoaxial articulations remain well aligned. Mild reversal of the normal cervical lordosis. Minimal degenerative anterolisthesis of C4 on C5. Otherwise, there is anatomic alignment of the vertebral bodies and posterior elements. No evidence of acute fracture or subluxation. The vertebral body heights are maintained. Moderate degenerative disc disease from C5-C7. Mild degenerative disc disease at all additional levels. Facet and uncovertebral joint arthropathy leads to osseous encroachment on the neural foramina from C5-C7. There is no prevertebral soft tissue swelling. The thyroid gland and remaining cervical soft tissues are within normal limits. Biapical paraseptal emphysema. The lung apices demonstrate no additional abnormalities. CT/CT head/brain wo IV con IMPRESSION: 1. No evidence of acute intracranial hemorrhage or edematous territorial infarction. 2. No evidence of acute fracture or traumatic subluxation of the cervical spine. 3. Moderate multilevel degenerative spondyloarthropathy of the cervical spine. Dictated By: Johnny Chawla DO Signed By: Electronically signed by Johnny Chawla DO 02/05/24 1334 Patient's left ankle and foot x-rays were read during a PACS down time and therefore no electronic impression is available at this time. However, the radiologist noted no acute nel process with some soft tissue swelling. Vent. Rate: 068 BPM Atrial Rate: 068 BPM P-R Int: 146 ms QRS Dur: 092 ms QT Int: 440 ms P-R-T Axes: 049 014 055 degrees QTc Int: 467 ms Normal sinus rhythm Normal ECG When compared with ECG of 29-DEC-2022 17:49, No significant change was found Electronically Signed By:JUAN BROTHERS MD Dictated By: Juan Brothers MD Signed By: Electronically signed by Juan Brothers MD 02/05/24 1511 Radiology Impression Discussion of test interpretation with radiology: I have reviewed the radiologist's reading. Independent Historian Clinical information obtained from an independent historian. History obtained from or confirmed by: Other (patient's brother and sister in law provided additional history and confirmed the history provided by the patient.) Discharge Plan Discharge Clinical Impression: Ankle sprain, Dizziness Patient Disposition: Home, Self-Care Instructions: Ankle Sprain (DC), Dizziness (ED) Additional Instructions: Follow up with your primary care provider and an orthopedic provider. Return to the emergency department immediately if your symptoms worsen or if you develop any dizziness, shortness of breath, difficulty breathing, chest pain, blurry vision, loss of vision, nausea, vomiting, abdominal pain, fever, chills, back pain, or any other complaints. Prescriptions: No Action fluticasone propionate [Flonase Allergy Relief] 50 mcg/actuation spray,suspension 1 spray intranasal BID 30 Days Qty: 16 3RF Rx Instructions: administer into each nostril gabapentin 300 mg capsule 300 mg PO BID 30 Days Qty: 60 6RF acetaminophen 500 mg tablet 500 mg PO Q6H PRN (Reason: fever) Qty: 60 0RF Rx Instructions: Take 1 tablet every 6 hours as needed for pain/fever. Do not take in combination with Fioricet. ibuprofen 800 mg tablet 800 mg PO TID PRN (Reason: pain) 30 Days Qty: 90 3RF cyclobenzaprine 10 mg tablet 20 mg PO BEDTIME PRN (Reason: muscle spasm) 30 Days Qty: 60 3RF Pataday Once Daily Relief 0.7 % drops 1 drp ophthalmic (eye) DAILY PRN (Reason: itching) Qty: 2.5 0RF zuinfgyinw-bpkywctkzy-zte-cod [id number] mg capsule 1 cap PO Q6H PRN paroxetine HCl 20 mg tablet 20 mg PO DAILY Referrals: [facility] [Provider Group] (Call to establish and follow up with an orthopedic provider.) Rudy Barth PA-C [Primary Care Provider] - Stand Alone Forms: Work/School Release Interventions: ED Discharge Assessment Last Done: 02/05/24 14:53 Discharge Date/Time: 02/05/24 14:55 Print Language: Khmer
--- NOTE | 2024-02-05 10:19 | ECG_ITS ---
Test Reason : DIZZINESS Blood Pressure : / mmHG Vent. Rate : 068 BPM Atrial Rate : 068 BPM P-R Int : 146 ms QRS Dur : 092 ms QT Int : 440 ms P-R-T Axes : 049 014 055 degrees QTc Int : 467 ms Normal sinus rhythm Normal ECG When compared with ECG of 29-DEC-2022 17:49, No significant change was found Referred By: Anna Mckeon Electronically Signed By:BASHIR BROTHERS MD
[2024-02-05 11:30] LABS: MANUAL DIFF FLAG NO
[2024-02-05] MEDS: 0.9 % Sodium Chloride 1,000 ML 999 ML IV (11:31)
[2024-02-05 11:33] LABS: Basophils Absolute Auto 0.1 X10*3/uL (0.0-0.2); Basophils Percent Auto 0.4 % (0-2); Eosinophils Percent Auto 0.2 % (0-4); Hematocrit 40.7 % (37.0-47.0); Hemoglobin 14.5 g/dl (12.0-16.0); Imm Gran Abs Auto 0.04 X10*3/uL (0.00-0.03); Imm Gran Pct Auto 0.3 % (0.0-0.4); Lymphocytes Absolute Auto 1.9 X10*3/uL (1.2-4.9); Lymphocytes Percent Auto 15.6 % (20-40); Mean Corpuscular HGB Conc 35.6 g/dl (31.0-35.0); Mean Corpuscular Volume 92.5 fL (80.0-98.0); Mean Platelet Volume 9.4 fL (9.4-12.3); Monocytes Absolute Auto 0.5 X10*3/uL (0.1-1.2); Monocytes Percent Auto 4.5 % (2-11); Neutrophils Absolute Auto 9.4 x10*3/uL (2.0-8.3); Platelet Count 296 X10*3/uL (160-400); Red Cell Distribution Width 13.6 % (11.0-16.0); White Blood Count 11.9 X10*3/uL (4.8-10.8)
[2024-02-05 11:56] LABS: Carbon Dioxide 23 mmol/L (22-29); Chloride 107 mmol/L (96-108); Sodium 140 mmol/L (135-145)
[2024-02-05 11:57] LABS: Alanine Aminotransferase 17 U/L (0-31); Albumin Level 4.3 g/dL (3.5-5.0); Alkaline Phosphatase 67 U/L (39-117); Anion Gap 14 (12-20); Aspartate Amino Transferase 19 U/L (5-31); Bilirubin Total 0.3 mg/dL (0.0-1.0); Blood Urea Nitrogen 10 mg/dL (9-16); Calcium 9.3 mg/dL (8.4-10.2); Creatinine Clr Calc Pharmacy 97.8; Estimated Glomerular Filt Rate > 60; Glucose Random 88 mg/dL (60-115); Magnesium 2.2 mg/dL (1.6-2.6); Total Protein 6.6 g/dL (6.5-8.0)
[2024-02-05 12:01] LABS: Troponin-I High Sensitivity < 2.7 ng/L (<3.5-17.0)
[2024-02-05 12:08] VITALS: RESP 18
[2024-02-05] MEDS: Morphine Sulfate 4 MG/ML CARTRIDGE IVPUSH (12:08)
[2024-02-05] MEDS: ondansetron HCL 4 MG/2 ML VIAL IVPUSH (12:08)
[2024-02-05 12:15] LABS: Appearance Urine Clear; Color Urine Yellow; Glucose Urine UA Negative (Negative); Leukocyte Esterase Urine Negative (Negative); Nitrite Urine Negative (Negative); PH 7.5 (5.0-9.0); Specific Gravity - Urine <= 1.005 (1.005-1.025); Urine Blood Negative (Negative); Urine Ketones Trace mg/dL (Negative); Urine Protein Negative (Neg-Trace)
[2024-02-05 12:58] LABS: Influenza A PCR NEGATIVE (Negative); Influenza B PCR NEGATIVE (Negative); Resp Syncy Virus RNA Qual PCR NEGATIVE (Negative); SARS COV2 PCR INHOUSE NEGATIVE (Negative)
[2024-02-05 14:53] VITALS: BP 127/62; PULSE 87; RESP 18; TEMP 36.7; O2SAT 100
== END 2024-02-05 14:55 | disposition home or self-care (01) ==
PROVIDERS: Physician Assistant Medical; Emergency Provider Student in an Organized Health Care Education/Training Program; PCP Physician Assistant
DX: S93.401A Sprain of unspecified ligament of right ankle, initial encounter (principal); W10.8XXA Fall (on) (from) other stairs and steps, initial encounter; R42 Dizziness and giddiness; F17.201 Nicotine dependence, unspecified, in remission; Y93.89 Activity, other specified; Y92.833 Campsite as the place of occurrence of the external cause; Y99.9 Unspecified external cause status; Z03.818 Encounter for observation for suspected exposure to other biological agents ruled out
CPT/HCPCS: 0241U; 70450; 72125; 73610; 73630; 80053; 81003; 83735; 84484; 85025; 93005; 96361; 96374; 96375; 99284; J2270; J2405

== ENCOUNTER → 2024-02-05 10:19 | Outpatient (BNV) | payer MEDICARE, MEDICAID, SELFPAY | PROVIDERS: Emergency Provider Student in an Organized Health Care Education/Training Program; PCP Physician Assistant; Visit Provider Internal Medicine Cardiovascular Disease | DX: R42 Dizziness and giddiness (principal) | CPT/HCPCS: 93010 ==

== ENCOUNTER 2024-02-10 10:21 | Outpatient (AMB) | payer MEDICARE, MEDICAID, SELFPAY ==
--- NOTE | 2024-02-10 10:25 | A.OFFPC_ITS ---
Vital Signs 3 02/10/24 10:26 Height 5 ft 2 in Weight 155 lb BMI 28.3 BP 104/68 Blood Pressure Location Lt brachial Position Sitting Pulse 96 Pulse Source Pulse Oximeter Pulse Oximetry (%) 97 Oxygen Delivery Method Room Air Intake Visit Reasons: [facility] 02/04 L Ankle Injury 02/05/24 Dizzy Etc Intake Note: Patient is here to follow-up after a visit the emergency department at [facility] on 02/05/24. Need [facility] (Ortho) referral appt on Thursday. Development Eng Required: No Accompanied by: Self / Same As Patient Allergies topiramate [From TOPAMAX] Allergy (Mild, Verified 02/10/24 10:49) NAUSEA & VOMITING divalproex sodium [From DEPAKOTE] Adverse Reaction (Unknown, Verified 02/10/24 10:49) NAUSEA & VOMITING Medication List - Last Reconciled 02/10/24 by Rudy Barth PA-C acetaminophen 500 mg PO Q6H PRN [id number] [id number] mg 1 cap PO Q6H PRN cyclobenzaprine 20 mg (2 x 10 mg) PO BEDTIME PRN 30 days fluticasone propionate 50 mcg/actuation (Flonase Allergy Relief) 1 spray intranasal BID 30 days gabapentin 300 mg PO BID 30 days ibuprofen 800 mg PO TID PRN 30 days olopatadine 0.7% (Pataday Once Daily Relief) 1 drp ophthalmic (eye) DAILY PRN paroxetine HCl 20 mg PO DAILY Tobacco use date assessed: 10/20/23 Dental Screening Dental Screen Date: 05/18/23 HPI [facility] 02/04 L Ankle Injury 02/05/24 Dizzy Etc 2 HPI0 Details Patient is a 49-year-old female here today for an ER follow-up visit. She reports that left ankle injury and x-rays have been taken. Still waiting radiology report. Continues to use a air cast boot, and is able to ambulate on the left . Will follow-up with orthopedics. She will need rest as she does have significant ecchymosis and edema surrounding her medial and lateral aspects of her left ankle. Given note to return back to work February 16 Also reported dizziness and head and neck CT have been done without any intracranial pathology noted. She still has moments of dizziness is concerned about some cerebral vascular accident. I reassured her her CT of head was normal. She will be following up with Neurology in 05/08/2024. [facility] Medical History Wrist pain, left Ankle pain, left Obesity Restless leg syndrome Migraine Anxiety Fibromyalgia Surgical History H/O rectal polypectomy History of surgery History of hernia repair History of wisdom tooth extraction History of tonsillectomy History of umbilical hernia repair H/O LEEP History of colectomy Family History Father CVD (cardiovascular disease) Myocardial infarction Mother Seizure Dementia Chronic mental illness Myocardial infarction, Onset Age: 40 Sister In good health Son In good health Other Mental health disorder Social History Housing: Apartment Alcohol intake: current Alcohol intake frequency: does not drink Patient Tobacco Use Status: Current everyday Tobacco user Tobacco use type: Cigarette Cigarettes Per Day: 15 Years Smoked: 15 Packs per year/per ci.25 e-Cigarette/Vaping Use: Never Used Second Hand Smoke Exposure: Yes Substance Use Type: Marijuana Advance Directives Date on File: 09/17/22 service: No Current occupational status: disabled Cognitive needs: No Hearing needs: No Vision needs: No Questionnaire Thrive Questionnaire Date Thrive assessed: 10/20/23 SALOMON-7 AMB Questionnaire SALOMON-7 Date SALOMON - 7 assessed: 10/20/23 Source: Developed by Drs. Ayan Curiel, Brooke Alfaro, Reagan Veronica and colleagues, with an educational cornelia from [employer]. Review of Systems Const Denies headache(s) Eyes Denies loss of vision ENT Denies vertigo, Reports dizziness, Denies headache(s) and Denies sore throat Card Denies chest pain, Denies leg edema and Denies lightheadedness Resp Denies cough, Denies hemoptysis and Denies wheezing GI Denies abdominal pain, Denies melena, Denies constipation, Denies diarrhea and Denies vomiting Denies urinary frequency, Denies dysuria and Denies urinary urgency Musc Denies arthralgias, Denies joint swelling, Denies numbness and Denies tingling Neuro Denies Abnormal speech present, Denies behavioral changes, Denies vertigo, Reports dizziness, Denies headache(s), Denies loss of vision, Denies memory loss, Denies numbness and Denies tingling Psych Denies anxiety, Denies behavioral changes, Denies depression, Denies memory loss and Denies panic attacks Jey/Lymph Denies easy bleeding and Denies easy bruising Aller/Immun Denies wheezing Physical exam (Primary Care) Vital Signs: Last Vital Signs Pulse 96 02/10/24 10:26 BP 104/68 02/10/24 10:26 Pulse Ox 97 02/10/24 10:26 Oxygen Delivery Method Room Air 02/10/24 10:26 BMI result Body Mass Index 28.3 Tobacco/Smoking Status: Tobacco use Status Tobacco use date assessed 10/20/23 02/10/24 10:27 Patient Tobacco Use Status Current everyday Tobacco 02/10/24 10:27 Tobacco use type Cigarette 02/10/24 10:27 e-Cigarette/Vaping Use Never Used 02/10/24 10:27 Thrive Assessment: Date of Thrive Assessment Date Thrive assessed 10/20/23 02/10/24 10:27 Const General: healthy appearing, no acute distress, alert and awake Nutritional Appearance: well nourished Orientation/consciousness: oriented to person, oriented to place and oriented to time HENMT Ears: TM's normal bilaterally General nose exam: Normal nasal mucous membranes and turbinates present Eyes Conjunctivae: conjunctivae normal Sclerae: sclerae normal Pupils: Equal, round and reactive pupils present Neck Neck: Yes no lymphadenopathy and Yes no JVD Thyroid: Thyroid normal Carotids: no bruits Resp Effort & Inspection: normal respiratory effort and not tachypneic Auscultation: no crackles, no rales, no rhonchi and no wheezes Cardio Rate: regular rate Rhythm: regular rhythm Heart sounds: no murmurs and normal S1 and S2 GI Palpation (GI): Soft to palpation, nontender, no hepatomegaly and no splenomegaly Auscultation: normal bowel sounds Skin General skin exam: no rashes or lesions noted and dry skin Neuro General: oriented to person, oriented to place and oriented to time Cranial nerves: Yes Equal, round and reactive pupils present Speech: No Abnormal speech present Gait exam (Neuro): Normal gait present Motor exam (neuro): no tremor noted Extrem Right upper extremity: full ROM Left upper extremity: full ROM Right lower extremity: full ROM; no edema Left lower extremity: full ROM; no edema Ankle/foot/toe images: 2 1. NOTED ECCHYMOSIS AND EDEMA OVER LEFT ANKLE. Psych Mental Status: mental status grossly normal Speech and movement: Normal speech and movement present Affect: normal affect Attitude: cooperative Thought process: Normal thought process present Assessment and Plan Assessment & Plan (1) Left ankle strain: Code(s): S96.912A - Strain of unspecified muscle and tendon at ankle and foot level, left foot, initial encounter Qualifiers: Encounter type: subsequent encounter Qualified Code(s): S96.912D - Strain of unspecified muscle and tendon at ankle and foot level, left foot, subsequent encounter Plan: Patient appears to have a pretty severe left ankle sprain. X-rays without notable fractures. Advised on conservative management of elevation, cool compress and partial weight-bearing. She will continue in the Aircast boot.. Will follow up with Orthopedics (2) Dizziness: Code(s): R42 - Dizziness and giddiness Plan: Continues with intermittent episodes of dizziness. Most recent CT head without any significant intracranial findings. She is still concerned about having a stroke. Reassured her about the CT findings. Advised to follow up with Neurology, may need MRI in future. Advised on risk modifications including blood pressure, cholesterol control and smoking cessation. (3) MDD (major depressive disorder), recurrent episode, moderate: Code(s): F33.1 - Major depressive disorder, recurrent, moderate Plan: Patient does admit to some increased depression as of late. She reports it has gotten better and will follow-up with her mental health therapist. She continues on SSRI therapy Orders: Referrals 2 Orthopedics Referral S96.912D - Strain of unspecified muscle and tendon at ankle and foot level, left foot, subsequent encounter Coding Level of Care Code Est Pt Level 4 (18626) Diagnoses Strain of left ankle, subsequent encounter S96.912D Encounter type: subsequent encounter Dizziness R42 MDD (major depressive disorder), recurrent episode, moderate F33.1
[2024-02-10 10:26] VITALS: BP 104/68; PULSE 96; O2SAT 97; BMI 28.3
== END 2024-02-10 10:59 | disposition home or self-care (01) ==
PROVIDERS: PCP Physician Assistant; Visit Provider Physician Assistant
DX: S96.912D Strain of unspecified muscle and tendon at ankle and foot level, left foot, subsequent encounter (principal); R42 Dizziness and giddiness; F33.1 Major depressive disorder, recurrent, moderate
CPT/HCPCS: 99214

== ENCOUNTER → 2024-02-17 08:00 | Outpatient (BNV) | payer MEDICARE, MEDICAID, SELFPAY | PROVIDERS: PCP Physician Assistant; Referring Provider Physician Assistant; Visit Provider Internal Medicine | DX: D72.829 Elevated white blood cell count, unspecified (principal) | CPT/HCPCS: 99203 ==

== ENCOUNTER 2024-03-30 15:37 | Outpatient (REF) | payer MEDICARE, MEDICAID, SELFPAY ==
--- NOTE | ~2024-03-30 | XR_ITS ---
EXAMINATION: XR CHEST CLINICAL INFORMATION: Bronchitis unspecified COMPARISON: None available. TECHNIQUE: 2 views of the chest were obtained. FINDINGS: The lungs are clear. No pleural effusion. There is slight mamillation however of the right hemidiaphragm. There may be a very small left Bochdalek hernia. Heart size normal with normal caliber pulmonary vessels. XR/XR chest 2V IMPRESSION: No active disease. Electronically signed by: Jung Vargas MD 03/30/2024 04:59 PM EDT RP
== END 2024-03-30 15:38 | disposition home or self-care (01) ==
LOC: HO.HMGCX 15:37
PROVIDERS: PCP Physician Assistant; Visit Provider Physician Assistant
DX: J20.9 Acute bronchitis, unspecified (principal)
CPT/HCPCS: 71046

== ENCOUNTER 2024-04-12 14:20 | Outpatient (REF) | payer MEDICARE, MEDICAID, SELFPAY ==
--- NOTE | ~2024-04-12 | MR_ITS ---
EXAMINATION: MR BRAIN WITHOUT CONTRAST CLINICAL INFORMATION: Blurred vision. Tunnel vision. Migraines. Concerning stroke. History of seizures. COMPARISON: MRI dated January 26, 2018 TECHNIQUE: MRI of the brain was obtained using routine sequences without contrast. FINDINGS: Submitted for interpretation on 05/18/2024. No restricted diffusion. No acute intracranial hemorrhage, mass effect, midline shift, hydrocephalus or herniation. Romero-white matter differentiation is normal. Posterior cranial fossa contents demonstrated no acute intracranial hemorrhage or mass effect. Flow-void signal within the main cerebral vessels is normal. Sellar/suprasellar region is normal. Craniocervical junction is intact and normal. Pannus formation, periodontal region without compression upon neural elements. MR/MR head/brain wo con IMPRESSION: No acute or structural brain abnormality. Electronically signed by: Romero Molina MD 05/18/2024 10:29 AM EDT
--- NOTE | 2024-04-12 20:30 | PC.NURSE ---
Patient reports pain 5/10 to Left middle finger. Patient medicated per MAR with only tylenol as an avaliable medications but outside pain parameter orders and MD notified it is the only pain medication available and if other interventions could be added.
== END 2024-04-12 14:21 | disposition home or self-care (01) ==
LOC: HO.MRI 14:20
PROVIDERS: Visit Provider Psychiatry & Neurology Neurology
DX: I63.9 Cerebral infarction, unspecified (principal)
CPT/HCPCS: 70551

== ENCOUNTER → 2024-04-12 14:30 | Outpatient (BNV) | payer MEDICARE, SELFPAY | PROVIDERS: Visit Provider Radiology Diagnostic Radiology | DX: H53.8 Other visual disturbances (principal) | CPT/HCPCS: 70551 ==

== ENCOUNTER 2024-04-19 07:45 | Inpatient (IN) | payer MEDICARE, MEDICAID, SELFPAY ==
--- NOTE | ~2024-04-19 | XR_ITS ---
EXAMINATION: XR FINGER, RIGHT CLINICAL INFORMATION: Possible foreign body, third digit. Swelling. COMPARISON: None available. TECHNIQUE: Three views of the right long finger. FINDINGS: Examination demonstrates soft tissue swelling of the right third digit. There is a possible soft tissue defect at the radial aspect of the third DIP joint. No radiopaque foreign body is identified. No fracture or dislocation is seen. Bony mineralization appears preserved. The joint spaces appear maintained. XR/XR finger RT min 2V IMPRESSION: Findings as above. Electronically signed by: Kd Madrid MD 04/19/2024 10:01 AM EDT
--- NOTE | ~2024-04-19 | XR_ITS ---
EXAMINATION: XR CHEST CLINICAL INFORMATION: Difficulty breathing COMPARISON: 03/30/2024 TECHNIQUE: Frontal view of the chest was obtained. FINDINGS: Lungs clear. Heart and pulmonary vessels are normal. XR/XR chest 1V IMPRESSION: No active disease. Electronically signed by: Jung Vargas MD 04/19/2024 04:32 PM EDT
[2024-04-19 07:46] VITALS: BP 120/73; PULSE 110; RESP 18; TEMP 36.9; O2SAT 98; BMI 27.4
--- OUTSIDE RECORDS SUMMARY | 2024-04-19 08:03 | XMS_ITS | Continuity of Care Document ---
Author Organization [facility] Address [address] [place] [address]- Care Team Providers Care Fish Cake Maker Name Role Phone Dev OSMAN, Vidal Nguyen Primary Care Physician Encounter [facility] [place] Date(s): 02/17/22 - 03/19/22 [facility] [address] [place] [address]- Attending Physician: Neeta العلي Admitting Physician: Neeta العلي Referring Physician: AdmtrNeeta Allergies, Adverse Reactions, Alerts Substance Reaction Severity Status dicyclomine severe itching Active Topamax N/V Active tiZANidine unsure of reaction Active Depakote felt like I was in a fog A ctive Immunizations Given and Recorded Vaccine Date Status Refusal Reason pneumococcal 23-valent vaccine 04/13/14 Given influenza virus vaccine, inactivated 05/24/11 Give n Medications atorvastatin 10 mg oral tablet 1 tablet = 10 mg, By Mouth, Daily, 0 Refills, Maintenance, 11/20/21 7:58:00 EDT, Partial fill upon patient request if the prescription is for a schedule II opioid drug. Start Date: 11/20/21 Status: Ordered clonazePAM 0.5 mg oral tablet 1 tablet = 0.5 mg, By Mouth, Daily at bedtime, 0 Refills, Maintenance, 08/21/21 14:58:00 EST, Tablet, Partial fill upon patient request if the prescription is for a schedule II opioid drug. Start Date: 08/21/21 Status: Ordered Diclofenac By Mouth, 0 Refills, Maintenance, 10/16/21 11:22:00 EDT, Partial fill upon patient request if the prescription is for a schedule II opioid drug. Start Date: 10/16/21 Status: Ordered Fioricet with Codeine 50 mg-300 mg-40 mg-30 mg oral capsule 1 capsule, By Mouth, Every 4 hours, PRN Pain , Severe, 0 Refills, Maintenance, 06/20/14 13:31:48 Start Date: 06/20/14 Status: Ordered Flexeril 10 mg oral tablet 1, tablet, By Mouth, 3 times a day, PRN, # 30 tablet, Refills 0, Maintenance, for spasm, 08/21/21 14:58:00 EST, Partial fill upon patient request if the prescription is for a schedule II opioid drug. Start Date: 08/21/21 Status: Ordered Multi Vitamin+ 0 Refills, Maintenance, 11/05/21 12:58:00 EDT, Partial fill upon patient request if the prescription is for a schedule II opioid drug. Start Date: 11/05/21 Status: Ordered PARoxetine 20 mg oral tablet 20 mg, 1, tablet, By Mouth, Daily, PRN, # 30 tablet, Refills 0, Maintenance, Anxiety, 08/21/21 14:57:00 EST, Partial fill upon patient request if the prescription is for a schedule II opioid drug. Start Date: 08/21/21 Status: Ordered Tylenol Caplet 2 TABS, By Mouth, Every 4 hours, 0 Refills, Maintenance, 03/21/21 10:26:00 EDT, Partial fill upon patient request if the prescription is for a schedule II opioid drug. Start Date: 03/21/21 Status: Ordered Problem List Condition Effective Dates Status Health Status Inform ant Abdominal pain(Confirmed) Active Classical migraine(Confirmed) Active Diverticulosis(Confirmed) Active Epileptic seizures(Confirmed) 1 Active Fibromyalgia(Confirmed) Active Migraines(Confirmed) Active Obese class I(Confirmed) Active Smoking(Confirmed) 1998 Active Vulvar intraepithelial neopl luis manuel, grade III(Confirmed) Active 1rob OSMAN Social History Social History Type Response Smoking Status Current every day sm oker; Other: pack a day; entered on: 03/23/15 Sex Care Team Personnel Name: Vidal Méndez MD Address: [address] [place] [address]
--- OUTSIDE RECORDS SUMMARY | 2024-04-19 08:03 | XMS_ITS | Continuity of Care Document ---
Author Organization [facility] Address [address] [place] [address]- Care Team Providers Care Critical Care Cns Name Role Phone Dev OSMAN, Vidal Nguyen Primary Care Physician Encounter [facility] [place] Date(s): 07/01/21 - 08/30/21 [facility] [address], [place] [address] Attending Physician: Aura Mujica MD Admitting Physician: Aura Mujica MD Referring Physician: Kavon Quinones MD Allergies, Adverse Reactions, Alerts Substance Reaction Severity Status dicyclomine severe itching Active Topamax N/V Active Depakote felt like I was in a fog A ctive tiZANidine unsure of reaction Active Immunizations Given and Recorded Vaccine Date Status Refusal Reason pneumococcal 23-valent vaccine 04/13/14 Given influenza virus vaccine, inactivated 05/24/11 Give n Medications clonazePAM 0.5 mg oral tablet 1 tablet = 0.5 mg, By Mouth, Daily at bedtime, 0 Refills, Maintenance, 08/21/21 14:58:00 EST, Tablet, Partial fill upon patient request if the prescription is for a schedule II opioid drug. Start Date: 08/21/21 Status: Ordered Fioricet with Codeine 50 mg-300 [...] opioid drug. Start Date: 08/21/21 Status: Ordered oxyCODONE 5 mg oral tablet 5 mg, 1, tablet, By Mouth, Daily, PRN, Refills 0, Tot. Refills 0, Maintenance, for pain, 08/21/21 14:58:00 EST, Partial fill upon patient request if the prescription is for a schedule II opioid drug. Start Date: 08/21/21 Status: Ordered pantoprazole 40 mg oral delayed release tablet 1 tablet = 40 mg, By Mouth, Daily, # 90 tablet, 0 Refills, Maintenance, 03/11/21 14:37:00 EDT, EC Tablet, 158, cm, 03/11/21 10:48:00 EDT, Height Start Date: 03/11/21 Status: Ordered PARoxetine 20 mg oral tablet 20 mg, 1, tablet, By Mouth, Daily, PRN, # 30 tablet, Refills 0, Maintenance, Anxiety, 08/21/21 14:57:00 EST, Partial fill upon patient request if the prescription is for a schedule II opioid drug. Start Date: 08/21/21 Status: Ordered prochlorperazine 5 mg oral tablet 1 tablet = 5 mg, By Mouth, 3 times a day, PRN for nausea/vomiting, # 30 tablet, 1 Refills, Maintenance, 04/30/21 13:30:00 EDT, Tablet, [id number], Partial fill upon patient request if the prescription is for a schedule II opioid drug.... Start Date: 04/30/21 Status: Ordered traMADol 50 mg oral tablet 1 tablet = 50 mg, By Mouth, Every 12 hours, PRN as needed for pain, 0 Refills, Maintenance, 08/21/21 14:58:00 EST, Tablet, [...] intraepithelial neopl luis manuel, grade III(Confirmed) Active 1outsrodrigo OSMAN Social History Social History Type Response Smoking Status Current every day [place]; Other: pack a day; entered on: 03/23/15 Sex
--- OUTSIDE RECORDS SUMMARY | 2024-04-19 08:03 | XMS_ITS | Continuity of Care Document ---
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 Classical migraine Confirmed Active Diverticulosis Confirmed Active Epileptic seizures 1 Confirmed Active Fibromyalgia Confirmed Active Migraines Confirmed Active Obese class I Confirmed Active Smoking Confirmed 1999 Active Vulvar intraepithelial neoplasia, grade III Confirmed Active 1outside Social History Social History Type Response Smoking Status Current every day sm oker; Other: pack a day; entered on: 03/23/15 Sex Patient Care team information Care Team Personnel Name: Rudy Pruitt Position: Reference Physician Member Role: PCP Address: Address: [address] [place] [address]- Name: Kallie Ruiz RN Position: [facility] Hospital Electrician Supervisor Airplane Member Role: Primary Care Nurse Name: Rebeca Zacarias RN Position: [facility] ED RN W/OE and Tasks Member Role: Primary Care Nurse Name: Anamaria Hampton SI Position: [facility] SN [place] Operator Member Role: Primary Care Nurse Care Team Related Persons Name: ADRIANO MOISE Address: home [address] [address] Name: SENIA MOISE Address: home [address] [place] [address] Name: MIKEY RILEY Address: home [address] [place] [address] Name: AMEYA MCPHERSON Address: home
--- OUTSIDE RECORDS SUMMARY | 2024-04-19 08:03 | XMS_ITS | Continuity of Care Document ---
Author Organization [facility] Address Unknown Care Team Providers Care Checker Cashier Name Role Phone Dev OSMAN, Vidal Nguyen Primary Care Physician Encounter [facility] Date(s): 05/15/21 - 05/22/21 [facility] Attending Physician: Stacie OSMAN, Kavon Berry Referring Physician: Khanh OSMAN, Thu Allergies, Adverse Reactions, Alerts Substance Reaction Severity Status dicyclomine Active Topamax N/V Active Depakote Active tiZANidine Active Immunizations Given and Recorded Vaccine Date Status Refusal Reason pneumococcal 23-valent vaccine 04/13/14 Given influenza virus vaccine, inactivated 05/24/11 Give n Medications Fioricet with Codeine 50 mg-300 mg-40 mg-30 mg oral capsule 1 capsule, By Mouth, Every 4 hours, PRN Pain , Severe, 0 Refills, Maintenance, 06/20/14 13:31:48 Start Date: 06/20/14 Status: Ordered meloxicam 15 mg oral tablet 0 Refills, Maintenance, 03/05/21 13:44:00 EDT, Partial fill upon patient request if the prescription is for a schedule II opioid drug. Start Date: 03/05/21 Status: Ordered pantoprazole 40 mg oral delayed release tablet 1 tablet = 40 mg, By Mouth, Daily, # 90 tablet, 0 Refills, Maintenance, 03/11/21 14:37:00 EDT, EC Tablet, 158, cm, 03/11/21 10:48:00 EDT, Height Start Date: 03/11/21 Status: Ordered prochlorperazine 5 mg oral tablet 1 tablet = 5 mg, By Mouth, 3 times a day, PRN for nausea/vomiting, # 30 tablet, 1 Refills, Maintenance, 04/30/21 13:30:00 EDT, Tablet, [facility] #[id number], Partial fill upon patient request if the prescription is for a schedule II opioid drug.... Start Date: 04/30/21 Status: Ordered Tylenol Caplet 2 TABS, By Mouth, Every 4 hours, 0 Refills, Maintenance, 03/21/21 10:26:00 EDT, Partial fill upon patient request if the prescription is for a schedule II opioid drug. Start Date: 03/21/21 Status: Ordered Problem List Condition Effective Dates Status Health Status Inform ant Abdominal pain(Confirmed) Active Classical migraine(Confirmed) Active Diverticulosis(Confirmed) Active Epileptic seizures(Confirmed) 1 Active Fibromyalgia(Confirmed) Active Migraines(Confirmed) Active Smoking(Confirmed) 1998 Active Vulvar intraepithelial neopl luis manuel, grade III(Confirmed) Active 1outside Vital Signs Most recent to oldest [Reference Range]: 1 Height 155 cm (05/15/21 1:46 PM) Weight 83 kg (05/15/21 1:46 PM) Pulse Rate [55-90 bpm] 105 bpm *H* (05/15/21 1:46 PM) Body Mass Index [18.5-24.99] 34.55 *>HHI* (05/15/21 1:46 PM) Blood Pressure [90-138/55-84 mm Hg] 119/ 79mm Hg (05/15/21 1:46 PM) Respiratory Rate [16-30 br/min] 16 br/mi n (05/15/21 1:46 PM) Temperature [96.8-100.4 DegF] 96.7 DegF *L* (05/15/21 1:46 PM) Blood pressure sites Arm, right (05/15/21 1:46 PM) Temperature Route Temporal (05/15/21 1:46 PM) Weight Obtained Via Standing scale (05/15/21 1:46 PM) Social History Social History Type Response Smoking Status Current every day sm oker; Other: pack a day; entered on: 03/23/15 Sex
--- OUTSIDE RECORDS SUMMARY | 2024-04-19 08:03 | XMS_ITS | Continuity of Care Document ---
Author Organization [facility] Address [address] [place] [address]- Care Team Providers Care Cigar Packing Examiner Name Role Phone Dev OSMAN, Vidal Nguyen Primary Care Physician [place] [facility] 01/06[place]22 - 02/05/22 [facility] [address] [place] [address]- Attending Physician: Neeta العلي Admitting Physician: Neeta [...]
--- OUTSIDE RECORDS SUMMARY | 2024-04-19 08:03 | XMS_ITS | Continuity of Care Document ---
Author Organization [facility] ter Address [address] [place] [address]- Care Team Providers Care Quality Systems Specialist Name Role Phone Rudy Pruitt Primary Care Physician [phone] Encounter [facility] R [id number] Date(s): 10/19/23 - 04/14/[address] [address] Attending Physician: Khanh OSMAN, Thu Admitting Physician: Thu Cassidy MD Allergies, Adverse Reactions, Alerts Substance Reaction [...] 0 Refills, Maintenance, 06/20/14 13:31:48 Start Date: 12/2/14 Status: Ordered Flexeril 10 mg oral tablet [...] Active Fibromyalgia Confirmed Active Migraines Confirmed Active Smoking Confirmed 1998 Active Vulvar intraepithelial neoplasia, grade III Confirmed Active 1outside Social History Social History Type Response Smoking Status Current every day sm oker; Other: pack a day; entered on: 03/23/15 Sex Patient Care team information Care Team Personnel Name: Rudy Pruitt Position: Reference Physician Member Role: PCP Address: Address: [address] [place] [address] [address] [place] [address]- Name: Kallie Ruiz RN Position: [facility] Hospital Paralegal Member Role: Primary Care Nurse Name: Rebeca Zacarias RN Position: [facility] ED RN W/OE and Tasks Member Role: Primary Care Nurse Name: Anamaria Hampton SI Position: [facility] SN RN Member Role: Primary Care Nurse Care Team Related Persons Name: ADRIANO MOISE Address: home [address] [address] Name: SENIA MOISE Address: home [address] [place] [address] Name: MIKEY RILEY Address: home [address] [place] [address] Name: AMEYA MCPHERSON Address: home
--- OUTSIDE RECORDS SUMMARY | 2024-04-19 08:03 | XMS_ITS | Continuity of Care Document ---
Author Organization [facility] Address Unknown Care Team Providers Care Oil Well Gun Perforator Operator Name Role Phone Dev OSMAN, Vidal Nguyen Primary Care Physician [place] [facility] [place](s): 03/11/21 - 04/10/21 [facility] Allergies, Adverse Reactions, Alerts Substance Reaction Severity [...] day, PRN for nausea/vomiting, # 30 tablet, 0 Refills, Acute 04/12/21 14:37:00 EDT, 03/11/21 14:37:00 EDT, Tablet, [id number], Partial fill upon patient request if the prescription is for a schedule... Start Date: 03/11/21 Stop Date: 04/12/21 Status: Ordered Tylenol Caplet 2 TABS, By [...] Response Smoking Status Current every day [place]; Other: pack a day; entered on: 03/23/15 Sex
--- OUTSIDE RECORDS SUMMARY | 2024-04-19 08:03 | XMS_ITS | Continuity of Care Document ---
Author Organization [facility] Address [address] [place] [address] [address] [place] [address]- Care Team Providers Care Horse Riding Coach Or Instructor Name Role Phone Rudy Pruitt Primary Care Physician [phone] Encounter [facility] Date(s): 05/04/23 - 06/03/[address] [place] [address]- Attending Physician: Neeta العلي Admitting Physician: AdmNeeta banuelos Referring Physician: AdmtrNeeta Allergies, Adverse Reactions, Alerts [...] Vulvar intraepithelial neoplasia, grade III Confirmed Active 1outsrodrigo OSMAN Social History Social History Type Response Smoking Status Current every day sm oker; Other: pack a day; entered on: 03/23/15 Sex Consult note * Rolan Jackson Jr: PERFORM, SIGN, VERIFY Event Display: Consultation Note Authored Date: [id number] Patient: ROXANNA RILEY Age: 43 years Sex: Female : 1975 Associated Diagnoses: None Author: Rolan Jackson Jr TO WHOM IT MAY CONCERN: PLEASE FAX THE PATIENT'S 2 RECENT EMERGENCY ROOM VISITS NOTES AND CT SCAN RESULTS TO [phone]. THANK YOU. KELLY ZARAGOZA Patient Care team information Care Team Personnel Name: Rudy Pruitt Position: Reference Physician Member Role: PCP Address: Address: [address] [place] [address]- Name: Kallie Ruiz RN Position: [facility] Hospital Director Foundation Member Role: Primary Care Nurse Name: Rebeca Zacarias RN Position: [facility] ED RN W/OE and Tasks Member Role: Primary Care Nurse Name: Anamaria Hampton SI Position: [facility] Member Role: Primary Care Nurse Care Team Related Persons Name: ADRIANO MOISE Address: home [address] [facility] [address] [place] [address] Name: SENIA MOISE Address: home [address] [address] Name: MIKEY RILEY Address: home [address] [place] [address] Name: AMEYA MCPHERSON Address: home
--- OUTSIDE RECORDS SUMMARY | 2024-04-19 08:03 | XMS_ITS | Continuity of Care Document ---
Author Organization [facility] Address [address] [address]- Care Team Providers Care Mushroom Packer Name Role Phone Dev OSMAN, Vidal Nguyen Primary Care Physician Encounter [facility] Date(s): 02/07/20 - 03/08/20 [facility] [address] [place] [address]- [facility] Allergies, Adverse Reactions, Alerts Substance Reaction Severity Status Topamax N/V Active Depakote Active Immunizations Given and Recorded Vaccine Date Status Refusal Reason pneumococcal 23-valent vaccine 04/13/14 Given influenza virus vaccine, inactivated 05/24/11 Give n Medications amiTRIPTYLINE = 50 mg, By Mouth, Daily at bedtime, 0 Refills, Maintenance Start Date: 05/03/12 Status: Ordered Bentyl 10 mg oral capsule 2 capsule = 20 mg, By Mouth, 4 times a day, # 112 capsule, 1 Refills, Maintenance, 05/10/18 9:12:22EDT, Capsule Start Date: 05/10/18 Stop Date: 06/07/18 Status: Ordered Fioricet with Codeine 50 mg-300 mg-40 mg-30 mg oral capsule 1 capsule, By Mouth, Every 4 hours, PRN Pain , Severe, 0 Refills, Maintenance, 06/20/14 13:31:48 Start Date: 06/20/14 Status: Ordered Ibuprofen 800 mg, By Mouth, 3 times a day, Refills 0, Maintenance, 11/28/15 14:54:31 Start Date: 11/28/15 Status: Ordered Paroxetine By Mouth, 0 Refills, Maintenance, 08/04/17 10:02:23 Start Date: 08/04/17 Status: Ordered predniSONE 10 mg oral tablet 1 tablet = 10 mg, By Mouth, Once, # 1 tablet, 0 Refills, Maintenance, 01/03/20 8:06:00 EDT, Tablet Start Date: 01/03/20 Status: Ordered traZODone 100 mg oral tablet 100 mg, 1, tablet, By Mouth, 2 times a day, # 180 tablet, Refills 0, Maintenance, 03/26/18 9:27:58 EDT Start Date: 03/26/18 Status: Ordered Problem List Condition Effective Dates Status Health Status Inform ant Abdominal pain(Confirmed) Active Classical migraine(Confirmed) Active Diverticulosis(Confirmed) Active Epileptic seizures(Confirmed) 1 Active Fibromyalgia(Confirmed) Active Migraines(Confirmed) Active Smoking(Confirmed) 1998 Active Vulvar intraepithelial neopl luis manuel, grade III(Confirmed) Active 1outsrodrigo OSMAN Social History Social History Type Response Smoking Status Current every day [place]; Other: pack a day; entered on: 03/23/15 Sex
--- OUTSIDE RECORDS SUMMARY | 2024-04-19 08:03 | XMS_ITS | Continuity of Care Document ---
Author Organization [facility] Address [address] [place] [address]- Care Team Providers Care Data Management Manager Name Role Phone Dev OSMAN, Vidal Nguyen Primary Care Physician [place] [facility] [place] 02/27/21 - 03/29/21 [facility] [address] [place] [address] [place] Allergies, Adverse Reactions, Alerts Substance Reaction Severity [...] 04/12/21 14:37:00 EDT, 03/11/21 14:37:00 EDT, Tablet, [facility] #[id number], Partial fill upon patient request if the [...]
--- OUTSIDE RECORDS SUMMARY | 2024-04-19 08:04 | XMS_ITS | Continuity of Care Document ---
Author Organization [facility] Address Unknown Care Team Providers Care Jerker Name Role Phone Dev OSMAN, Vidal Nguyen Primary Care Physician [place] [facility] [place] Date(s): 11/05/21 - 12/05/21 [facility] Allergies, Adverse Reactions, Alerts [...]
--- OUTSIDE RECORDS SUMMARY | 2024-04-19 08:04 | XMS_ITS | Continuity of Care Document ---
Author Organization [facility] Address [address] [place] [address]- Care Team Providers Care Spudder Name Role Phone Tru OSMAN, Galindo Cheney Primary Care Physician [place] [facility] [place] 09/15[place] - 11/06/19 [facility] [address] [place] [address] [facility] Attending Physician: Mega Hahn MD Admitting Physician: Mega Hahn MD Referring Physician: Kavon Quinones MD Allergies, [...] Date: 05/10/18 Stop Date: 06/07/18 Status: Ordered docusate sodium 100 mg oral capsule 100 mg, 1, capsule, By Mouth, 2 times a day, take while using oxycodone to prevent constipation. Take with plenty of water, # 60 capsule, Refills 0, Tot. Refills 0, Maintenance, 12/18/15 15:36:49, Print Requisition Start Date: 12/18/15 Status: Ordered Fioricet with Codeine 50 mg-300 mg-40 mg-30 mg oral capsule 1 capsule, By Mouth, Every 4 hours, PRN Pain , Severe, 0 Refills, Maintenance, 06/20/14 13:31:48 Start Date: 06/20/14 Status: Ordered Ibuprofen 800 mg, By Mouth, 3 times a day, Refills 0, Maintenance, 11/28/15 14:54:31 Start Date: 11/28/15 Status: Ordered imiquimod 5% topical cream 1 applicator, Topically, Every Thursday, and Thursday, applied directly to vulvar aarea, # 24 each, 0 Refills, Maintenance, 07/29/16 9:22:41, 1 applicator Topically Every Thursday, and Thursday,Instr:applied directly to vulvar aarea Start Date: 07/29/16 Status: Ordered Metoclopramide = 10 mg, By Mouth, Daily, PRN as needed for nausea/vomiting, 0 Refills, Maintenance, 06/20/14 13:33:16 Start Date: 06/20/14 Status: Ordered Multivitamin By Mouth, Daily, 0 Refills, Maintenance Start Date: 05/14/11 Status: Ordered omeprazole 20 mg oral enteric coated capsule 1 capsule = 20 mg, By Mouth, Daily, # 30 capsule, 0 Refills, Maintenance, 06/20/14 13:49:15, 1 capsule By Mouth Daily Start Date: 06/20/14 Status: Ordered Paroxetine By Mouth, 0 Refills, Maintenance, 08/04/17 10:02:23 Start Date: 08/04/17 Status: Ordered Percocet-5/325 325 mg-5 mg oral tablet 1, tablet, By Mouth, Every 4 hours, PRN, # 24 tablet, Refills 0, Tot. Refills 0, Maintenance, for pain, 10/02/16 10:54:45, Print Requisition, Tablet Start Date: 10/02/16 Status: Ordered propranolol 80 mg oral capsule, extended release 1 capsule, By Mouth, Daily, # 30 capsule, 0 Refills, Maintenance, 04/12/14 21:38:03, CR Capsule Start Date: 04/12/14 Status: Ordered traZODone 100 mg oral tablet 100 mg, 1, tablet, By Mouth, 2 times a day, # 180 tablet, Refills 0, Maintenance, 03/26/18 9:27:58 EDT Start Date: 03/26/18 Status: Ordered zonisamide 100 mg oral capsule 1 capsule = 100 mg, By Mouth, Daily, 0 Refills, Maintenance, 08/04/17 10:02:00 Start Date: 08/04/17 Status: Ordered Problem List Condition Effective Dates Status Health Status Inform ant Abdominal pain(Confirmed) Active Classical migraine(Confirmed) Active Diverticulosis(Confirmed) Active Epileptic seizures(Confirmed) 1 Active Fibromyalgia(Confirmed) Active Migraines(Confirmed) Active Smoking(Confirmed) 1998 Active Vulvar intraepithelial neopl luis manuel, grade III(Confirmed) Active 1outside Social History Social History Type Response Smoking Status Current every day [place]; Other: pack a day; entered on: 03/23/15 Sex
--- OUTSIDE RECORDS SUMMARY | 2024-04-19 08:04 | XMS_ITS | Continuity of Care Document ---
Author Organization [facility] Address [address] [place] [address]- Care Team Providers Care Pathology Transcriptionist Name Role Phone Vidal Méndez MD Primary Care Physician En[place] [facility] [place] Date(s): 07/09/20 - 08/08/20 [facility] [address] [place] [address]- Attending Physician: Neeta العلي Admitting Physician: AdmtrNeeta Referring Physician: AdmtrNeeta Allergies, Adverse Reactions, Alerts Substance Reaction Severity Status Topamax N/V Active Depakote Active Immunizations Given and Recorded Vaccine Date Status Refusal Reason pneumococcal 23-valent vaccine 04/13/14 Given influenza virus vaccine, inactivated 05/24/11 Give n Medications Bentyl 10 mg oral capsule 2 capsule [...] 08/04/17 10:02:23 Start Date: 08/04/17 Status: Ordered Problem List [...]
--- OUTSIDE RECORDS SUMMARY | 2024-04-19 08:04 | XMS_ITS | Continuity of Care Document ---
Author Organization [facility] Address [address] [place] [address]- Care Team Providers Care Tip Banding Machine Operator Name Role Phone Dev OSMAN, Vidal Nguyen Primary Care Physician Encounter [facility] [place] Date(s): 08/26/21 - 09/25/21 [facility] [address] [place], [place] [address] Attending Physician: Neeta العلي Admitting Physician: Neeta العلي Referring Physician: Neeta العلي Allergies, Adverse Reactions, Alerts Substance Reaction Severity [...] tablet 5 mg, 1, tablet, By Mouth, Every 4 hours, PRN, # 7 tablet, Refills 0, Tot. Refills 0, Acute 10/17/21 23:30:00 EDT, Pain , Severe, 09/03/21 8:43:00 EST, Route to Pharmacy Electronically, [facility], Partial fill upon patient request if th... Start Date: 09/03/21 Stop Date: 10/17/21 Status: Ordered oxyCODONE 5 mg oral tablet 5 mg, 1, tablet, By Mouth, Daily, PRN, Refills 0, Tot. Refills 0, Maintenance, for pain, 08/21/21 14:58:00 EST, Partial fill upon patient request if the prescription is for a schedule II opioid drug. Start Date: 08/21/21 Status: Ordered oxyCODONE 5 mg oral tablet 5 mg, 1, tablet, By Mouth, Every 6 hours, PRN, # 7 tablet, Refills 0, Tot. Refills 0, Acute 10/03/21 10:36:00 EDT, Pain , Severe, 09/05/21 16:01:00 EST, Route to Pharmacy Electronically, [facility] #[id number], Partial fill upon patient request i... Start Date: 09/05/21 Stop Date: 10/03/21 Status: Ordered oxyCODONE 5 mg oral tablet 2.5 mg, 0.5, tablet, By Mouth, Every 6 hours, PRN, # 10 tablet, Refills 0, Tot. Refills 0, Acute 09/19/22 10:25:00 EST, as needed for pain, 09/18/21 10:25:00 EST, Route to Pharmacy Electronically, [facility] #[id number], Partial fill upon patient... Start Date: 09/18/21 Stop Date: 09/19/22 Status: Ordered pantoprazole 40 mg oral delayed [...] 1 Refills, Maintenance, 04/30/21 13:30:00 EDT, Tablet, [facility] #[id number], Partial fill upon patient request if the [...]
--- OUTSIDE RECORDS SUMMARY | 2024-04-19 08:04 | XMS_ITS | Continuity of Care Document ---
Author Organization [facility] Address [address] [facility], [address] Floor, [address] [place] [address]- Care Team Providers Care Event Coordinator Name Role Phone Vidal Méndez MD Primary Care Physician [place] [facility] [place]18[place]20 - 08/16/20 [facility] [address], [address] Floor, [address] [place] [address]- Attending Physician: Sundeep Leiva MD Admitting Physician: Sundeep Leiva MD Referring Physician: Vidal Méndez MD Allergies, Adverse Reactions, Alerts Substance Reaction [...] 08/04/17 10:02:23 Start Date: 08/04/17 Status: Ordered Smoothie Readi-Cat 2 oral suspension See Instructions, drink 1st bottle by mouth 6 hours before procedure 2nd bottle 90 minutes before procedure, # 900 mL, 0 Refills, Maintenance, 08/15/20 10:47:00 [id number], Partial fill upon patient request if the prescription is... Start Date: 08/15/20 Status: Ordered Problem List Condition Effective Dates [...]
--- OUTSIDE RECORDS SUMMARY | 2024-04-19 08:04 | XMS_ITS | Continuity of Care Document ---
Author Organization [facility] Address Unknown Care Team Providers Care Sheet Ironworker Name Role Phone Dev OSMAN, Vidal Nguyen Primary Care Physician [place] [facility] [place] 06/10/21 - 09/27/21 [facility] Attending Physician: Kavon Quinones MD Allergies, Adverse Reactions, Alerts Substance Reaction Severity Status dicyclomine severe itching Active tiZANidine unsure of reaction Active Topamax N/V Active Depakote felt like [...] 09/03/21 8:43:00 EST, Route to Pharmacy Electronically, [facility], Partial fill upon patient request if [...] 09/05/21 16:01:00 EST, Route to Pharmacy Electronically, [facility] #[id number], Partial fill upon patient request i... Start Date: 09/05/21 Stop Date: 10/03/21 Status: Ordered oxyCODONE 5 mg oral tablet 2.5 mg, 0.5, tablet, By Mouth, Every 6 hours, PRN, # 10 tablet, Refills 0, Tot. Refills 0, Acute 09/19/22 10:25:00 EST, as needed for pain, 09/18/21 10:25:00 EST, Route to Pharmacy Electronically, [facility] #[id number], Partial fill upon patient... Start Date: 09/18/21 [...] 1 Refills, Maintenance, 04/30/21 13:30:00 EDT, Tablet, [facility][id number], Partial fill upon patient request if the [...]
--- OUTSIDE RECORDS SUMMARY | 2024-04-19 08:04 | XMS_ITS | Continuity of Care Document ---
Author Organization [facility] Address [address] [place] [address] [address] [place] [address]- Care Team Providers Care Manager Tax Name Role Phone Dev OSMAN, Vidal Nguyen Primary Care Physician Encounter [facility] Date(s): 08/03/20 - 09/02/20 [facility] [address] [place], [place] [address] Allergies, Adverse Reactions, Alerts Substance Reaction Severity [...] 900 mL, 0 Refills, Maintenance, 08/15/20 10:47:00 [facility] #[id number], Partial fill upon patient request if the [...]
--- OUTSIDE RECORDS SUMMARY | 2024-04-19 08:04 | XMS_ITS | Continuity of Care Document ---
Author Organization [facility] Address [address] [place] [address]- Care Team Providers Care Junior Architect Name Role Phone Dev OSMAN, Vidal Nguyen Primary Care Physician En[place] [facility] [place](s): 01/11/20 - 03/08/20 [facility] [address] [place] [address]- [facility] Attending Physician: Mega Hahn MD Admitting Physician: Mega Hahn MD Allergies, Adverse Reactions, Alerts Substance Reaction [...]
--- OUTSIDE RECORDS SUMMARY | 2024-04-19 08:04 | XMS_ITS | Continuity of Care Document ---
Author Organization [facility] Address [address] [place] [address]- Care Team Providers Care Material Cutter Name Role Phone Rudy Pruitt Primary Care Physician [phone] Encounter [facility] [place] Date(s): 08/25/23 - 09/24/23 [facility] [address] [place] [address]- Allergies, Adverse Reactions, Alerts Substance Reaction Severity [...] Physician Member Role: PCP Address: Address: [address] [facility] [address] [place] [address]- Name: Kallie Ruiz RN Position: [facility] Hospital Music Historian Member Role: Primary Care Nurse Name: Rebeca Zacarias RN Position: [facility] ED RN W/OE and Tasks Member Role: Primary Care Nurse Name: Anamaria Hampton SI Position: [facility] Non-Invasive Cardiology Member Role: Primary Care Nurse Care Team Related Persons Name: ADRIANO MOISE Address: home [address] [facility] [address] [place] [address] Name: SENIA MOISE Address: home [address] [address] Name: MIKEY RILEY Address: home [address] [place] [address] Name: AMEYA MCPHERSON Address: home
--- OUTSIDE RECORDS SUMMARY | 2024-04-19 08:04 | XMS_ITS | Continuity of Care Document ---
Author Organization [facility] Address [address] [place] [address]- Care Team Providers Care Rock Cutter Name Role Phone Rudy Pruitt Primary Care Physician Encounter [facility] [place] Date(s): 09/19/22 - 10/19/22 [facility] [address] [place] [address]- [place] Allergies, Adverse Reactions, Alerts Substance Reaction [...] Physician Member Role: PCP Address: Address: [address] [place], [place] [address] Name: Kallie Ruiz RN Position: [facility] SN Steel Spar Operator Member Role: Primary Care Nurse Name: Rebeca Zacarias RN Position: [facility] ED RN W/OE and Tasks Member Role: Primary Care Nurse Name: Anamaria Hampton SI Position: [facility] Associate Professional Member Role: Primary Care Nurse Care Team Related Persons Name: ADRIANO MOISE Address: home [address] [facility] [address] [place] [address] Name: SENIA MOISE Address: home [address] [address] Name: MIKEY RILEY Address: home [address] [place] [address] Name: AMEYA MCPHERSON Address: home [address] [place] [address]
--- OUTSIDE RECORDS SUMMARY | 2024-04-19 08:04 | XMS_ITS | Continuity of Care Document ---
Author Organization [facility] Address [address] [place] [address]- Care Team Providers Care Slot Machine Floor Person Name Role Phone Vidal Méndze MD Primary Care Physician Encounter [facility] [place] Date(s): 05/21/21 - 06/20/21 [facility] [address] [place] [address]- Attending Physician: Neeta العلي Admitting Physician: Neeta العلي Referring Physician: [id number] Allergies, Adverse Reactions, Alerts Substance Reaction Severity [...] 1 Refills, Maintenance, 04/30/21 13:30:00 EDT, Tablet, [id number], Partial fill upon patient request if the [...]
--- OUTSIDE RECORDS SUMMARY | 2024-04-19 08:04 | XMS_ITS | Continuity of Care Document ---
Author Organization [facility] Address [address] [place] [address] [address] [place] [address]- Care Team Providers Care Loss Prevention Guard Name Role Phone Rudy Pruitt Primary Care Physician [place] [facility] [place]04/23 - 05/11/[address] [place] [address]- Attending Physician: Dami Mccoy Referring Physician: Rudy Pruitt Allergies, Adverse Reactions, Alerts Substance Reaction Severity [...] intraepithelial neoplasia, grade III Confirmed Active 1outside Vital Signs Most recent to oldest [Reference Range]: 1 2 Height 158 cm (05/05/23 1:35 PM) 158 cm (05/04/23 1:36 PM) Weight 78.1 kg (05/05/23 1:35 PM) 79.1 kg (05/04/23 1:36 PM) Body Mass Index [18.5-24.99 kg/m2] 31.29 kg/m2 *>HHI* (05/05/23 1:35 PM) 31.69 kg/m2 *>HHI* (05/04/23 1:36 PM) Blood Pressure [90-138/55-84 mm Hg] 96/2 2mm Hg (05/05/23 1:35 PM) 136/74mm Hg (05/04/23 1:36 PM) Temperature [96.8-100.4 DegF] 97.9 DegF (05/04/23 1:36 PM) Social History Social History Type Response Smoking Status Current every day sm oker; Other: pack a day; entered on: 03/23/15 Sex Patient Care team information Care Team Personnel Name: Rudy Pruitt Position: Reference Physician Member Role: PCP Address: Address: [address] [facility] [place], [place] [address] Name: Parent RNKallie Position: [facility] Hospital Ortho Nurse Member Role: Primary Care Nurse Name: Rebeca Zacarias RN Position: [facility] ED RN W/OE and Tasks Member Role: Primary Care Nurse Name: Anamaria Hampton SI Position: [facility] Member Role: Primary Care Nurse Care Team Related Persons Name: ADRIANO MOISE Address: home [address] [facility] [address] [place] [address] Name: SENIA MOISE Address: home [address] [address] Name: MIKEY RILEY Address: home [address] [place] [address] Name: AMEYA MCPHERSON Address: home
--- OUTSIDE RECORDS SUMMARY | 2024-04-19 08:04 | XMS_ITS | Continuity of Care Document ---
Author Organization [facility] Address [address] [place] [address] [address] [place] [address]- Care Team Providers Care Belt Molder Name Role Phone Dev OSMAN, Vidal Nguyen Primary Care Physician [facility]counter [facility] Date(s): 08/15/20 - 09/14/20 [facility] [address] [place], [place] [address] Allergies, Adverse Reactions, Alerts Substance Reaction Severity [...] Maintenance, 08/15/20 10:47:00 [facility][id number], Partial fill upon patient request if the [...]
--- OUTSIDE RECORDS SUMMARY | 2024-04-19 08:04 | XMS_ITS | Continuity of Care Document ---
Author Organization [facility] Address [address] [place] [address] [address] [place] [address]- Care Team Providers Care Continuous Mining Machine Lode Miner Name Role Phone Rudy Pruitt Primary Care Physician [place] [facility] [place] - 09/23/[address] [place] [address]- Encounter Diagnosis AIN (anal intraepithelial neoplasia) anal canal(Discharge Diagnosis) - 09/16/22 Attending Physician: Anna MCKEON, Ting Huang Referring Physician: Vidal Méndez MD Allergies, Adverse [...] intraepithelial neoplasia, grade III Confirmed Active 1outside MD Diagnosis Diagnosis Type Effective Dates Health Status Clinical Service Informant AIN (anal intraepithelial neoplasia) anal canal Discharge Diagnosis 09/16/22 Vital Signs Most recent to oldest [Reference Range]: 1 Height 158 cm (09/16/22 11:33 AM) Weight 85.5 kg (09/16/22 11:33 AM) Pulse Rate [55-90 bpm] 96 bpm *H* (09/16/22 11:33 AM) Body Mass Index [18.5-24.99 kg/m2] 34.25 kg/m2 *>HHI* (09/16/22 11:33 AM) Blood Pressure [90-138/55-84 mm Hg] 122/ 87mm Hg (09/16/22 11:33 AM) Respiratory Rate [16-30 br/min] 20 br/mi n (09/16/22 11:33 AM) Temperature [96.8-100.4 DegF] 96.8 DegF (09/16/22 11:33 AM) Blood pressure sites Arm, right (09/16/22 11:33 AM) Temperature Route Temporal (09/16/22 11:33 AM) Weight Obtained Via Standing scale (09/16/22 11:33 AM) Social History Social History Type Response Smoking Status Current every day sm oker; Other: pack a day; entered on: 03/23/15 Sex Patient Care team information Care Team Personnel Name: Rudy Pruitt Position: Reference Physician Member Role: PCP Address: Address: [address] [place], [place] [address] Name: Parent Kallie PUENTES [facility] SN Rrt Member Role: Primary Care Nurse Name: Rebeca Zacarias RN Position[facility] ED RN W/OE and Tasks Member Role: Primary Care Nurse Name: Anamaria Hampton SI Position[facility] Associate Professional Member Role: Primary Care Nurse Care Team Related Persons Name: ADRIANO MOISE Address: home [address] [facility] [address] [facility] [place] [address] Name: SENIA MOISE Address: home [address] [address] Name: MIKEY RILEY Address: home [address] [place] [address] Name: AMEYA MCPHERSON Address: home [address] [place] [address]
--- OUTSIDE RECORDS SUMMARY | 2024-04-19 08:04 | XMS_ITS | Continuity of Care Document ---
Author Organization [facility] Address [address] [place] [address]- Care Team Providers Care Fire Control Officer Name Role Phone Dev OSMAN, Vidal Nguyen Primary Care Physician Encounter [facility] [place] Date(s): 06/07/21 - 08/28/[address] [address] Attending Physician: Kavon Quinones MD Admitting Physician: Kavon Quinones MD Allergies, Adverse Reactions, [...] 1 Refills, Maintenance, 04/30/21 13:30:00 EDT, Tablet, [facility] #[id number], Partial fill upon patient request if the [...]
--- OUTSIDE RECORDS SUMMARY | 2024-04-19 08:04 | XMS_ITS | Continuity of Care Document ---
Author Organization [facility] Address [address] [place] [address]- Care Team Providers Care Line Worker Name Role Phone Dev OSMAN, Vidal Nguyen Primary Care Physician Encounter [facility] [place] Date(s): 11/22/21 - 12/22/21 [facility] [address] [place] [address]- Allergies, Adverse Reactions, Alerts Substance Reaction Severity [...]
--- OUTSIDE RECORDS SUMMARY | 2024-04-19 08:04 | XMS_ITS | Continuity of Care Document ---
Author Organization [facility] ter Address [address] [place] [address]- Care Team Providers Care Last Scourer Name Role Phone Vidal Méndez MD Primary Care Physician [place] [facility] [place] 09/03/21 - 09/03/[address] [address] Discharge Disposition: A-D/C Home Attending Physician: Kavon Quinones MD Admitting Physician: Kavon Quinones MD Referring Physician: Kavon Quinones MD Allergies, [...] 09/03/21 8:43:00 EST, Route to Pharmacy Electronically, [facility], Partial fill upon patient request if th... Start Date: 09/03/21 Stop Date: 10/17/21 Status: Ordered oxyCODONE 5 mg oral tablet 5 mg, 1, tablet, By Mouth, Daily, PRN, Refills 0, Tot. Refills 0, Maintenance, for pain, 08/21/21 14:58:00 EST, Partial fill upon patient request if the prescription is for a schedule II opioid drug. Start Date: 08/21/21 Status: Ordered OxyCODONE IR Tablet 5 mg, Tablet, By Mouth, Every 4 hours, in PACU ONLY, if patient can tolerate PO, PRN for Pain , Mild, Routine, 09/03/21 8:50:00 EST Start Date: 09/03/21 Stop Date: 09/03/21 Status: Discontinued pantoprazole 40 mg oral delayed release tablet [...] 1 Refills, Maintenance, 04/30/21 13:30:00 EDT, Tablet, [facility] #[id number], Partial fill upon patient request if the [...] recent to oldest [Reference Range]: 1 2 3 Height 158 cm (09/03/21 6:42 AM) 158 cm (08/21/21 1:09 PM) Weight 83.6 kg (09/03/21 6:42 AM) 82 kg (08/21/21 1:09 PM) Oxygen Saturation [94-100 %] 100 % (09/03/21 11:00 AM) 97 % (09/03/21 10:15 AM) 97 % (09/03/21 10:00 AM) Pulse Rate [55-90 bpm] 97 bpm *H* (09/03/21 6:42 AM) Body Mass Index [18.5-24.99] 33.49 *>HHI* (09/03/21 6:42 AM) 32.85 *>HHI* (08/21/21 1:09 PM) Blood Pressure [90-138/55-84 mm Hg] 109/57mm Hg (09/03/21 10:15 AM) 114/53mm Hg (09/03/21 10:00 AM) 114/53mm Hg (09/03/21 9:45 AM) Respiratory Rate [16-30 br/min] 18 br/min (09/03/21 10:50 AM) 26 br/min (09/03/21 10:15 AM) 20 br/min (09/03/21 10:00 AM) Temperature [96.8-100.4 DegF] 99.1 DegF (09/03/21 9:00 AM) 97.2 DegF (09/03/21 6:42 AM) Mode of Delivery (Oxygen) Room air (09/03/21 11:00 AM) Room air (09/03/21 9:15 AM) Room air (09/03/21 9:00 AM) Blood pressure sites Arm, right (09/03/21 6:42 AM) Temperature Route Temporal (09/03/21 9:00 AM) Temporal (09/03/21 6:42 AM) Dry Weight 83.6 kg (09/03/21 6:42 AM) 82 kg (08/21/21 1:09 PM) Weight Obtained Via Patient/family state d (08/21/21 1:09 PM) Dry Weight Obtained Via Standing scale (09/03/21 6:42 AM) Patient/family stated (08/21/21 1:09 PM) Social History Social History Type Response Smoking Status Current every day sm oker; Other: pack a day; entered on: 03/23/15 Sex
--- OUTSIDE RECORDS SUMMARY | 2024-04-19 08:04 | XMS_ITS | Continuity of Care Document ---
Author Organization [facility] As [facility] Address [address] [place] [address] [address] [place] [address]- Care Team Providers Care Cause Analyst Name Role Phone Vidal Méndez MD Primary Care Physician Encounter [facility] [place] Date(s): 02/15/20 - 02/22/[address] [place] [address]- [facility] Encounter Diagnosis Abdominal pain(Discharge Diagnosis) - 02/15/20 Attending Physician: Kavon Quinones MD Referring Physician: Vidal Méndez MD Allergies, [...] Classical migraine(Confirmed) Active Diverticulosis(Confirmed) Active Epileptic seizures(Confirmed) Active Fibromyalgia(Confirmed) Active Migraines(Confirmed) Active Smoking(Confirmed) 1998 Active Vulvar intraepithelial neopl luis manuel, grade III(Confirmed) Active 1outside MD Diagnosis Diagnosis Type Effective Dates Health Status Cl inical Service Informant Abdominal pain Discharge Diagnosis 02/15/20 Vital Signs Most recent to oldest [Reference Range]: 1 Height 158 cm (02/15/20 2:10 PM) Weight 84 kg (02/15/20 2:10 PM) Pulse Rate [55-90 bpm] 82 bpm (02/15/20 2:10 PM) Body Mass Index [18.5-24.99] 33.65 *>HHI* (02/15/20 2:10 PM) Blood Pressure [90-138/55-84 mm Hg] 110/ 78mm Hg (02/15/20 2:10 PM) Respiratory Rate [16-30 br/min] 16 br/mi n (02/15/20 2:10 PM) Temperature [96.8-100.4 DegF] 97.9 DegF (02/15/20 2:10 PM) Blood pressure sites Arm, right (02/15/20 2:10 PM) Temperature Route Temporal (02/15/20 2:10 PM) Weight Obtained Via Standing scale (02/15/20 2:10 PM) Social History Social History Type Response Smoking Status Current every day sm oker; Other: pack a day; entered on: 03/23/15 Sex
--- OUTSIDE RECORDS SUMMARY | 2024-04-19 08:05 | XMS_ITS | Continuity of Care Document ---
Author Organization [facility] Address [address] [place] [address] [address] [place] [address]- Care Team Providers Care Glassie Name Role Phone Dev OSMAN, Vidal Nguyen Primary Care Physician [place] [facility] [place]s): 08/13/20 - 09/12/20 [facility] [address] [place], [place] [address] Allergies, Adverse Reactions, Alerts Substance Reaction [...] 900 mL, 0 Refills, Maintenance, 08/15/20 10:47:[id number], Partial fill upon patient request if the [...]
--- OUTSIDE RECORDS SUMMARY | 2024-04-19 08:05 | XMS_ITS | Continuity of Care Document ---
Author Organization [facility] As [facility] Address Unknown Care Team Providers Care Bracelet And Brooch Maker Name Role Phone Vidal Méndez MD Primary Care Physician En[place] [facility] [place] Date(s): 09/18/21 - 09/25/21 [facility] Encounter Diagnosis Abdominal pain(Discharge Diagnosis) - 09/18/21 Attending Physician: Kavon Quinones MD Referring Physician: [...] 09/03/21 8:43:00 EST, Route to Pharmacy Electronically, [facility], Partial fill upon patient request [...] 09/05/21 16:01:00 EST, Route to Pharmacy Electronically, [facility] #[id number], Partial fill upon patient request i... Start Date: 09/05/21 Stop Date: 10/03/21 Status: Ordered oxyCODONE 5 mg oral tablet 2.5 mg, 0.5, tablet, By Mouth, Every 6 hours, PRN, # 10 tablet, Refills 0, Tot. Refills 0, Acute 09/19/22 10:25:00 EST, as needed for pain, 09/18/21 10:25:00 EST, Route to Pharmacy Electronically, [facility] #[id number], Partial fill upon patient... Start Date: 09/18/21 [...] 1 Refills, Maintenance, 04/30/21 13:30:00 EDT, Tablet, [facility] #[id number], Partial fill upon patient request if the [...] neopl luis manuel, grade III(Confirmed) Active 1outside Diagnosis Diagnosis Type Effective Dates Health Status Cl inical Service Informant Abdominal pain Discharge Diagnosis 09/18/21 Vital Signs Most recent to oldest [Reference Range]: 1 Height 158 cm (09/18/21 9:47 AM) Weight 83.6 kg (09/18/21 9:47 AM) Pulse Rate [55-90 bpm] 96 bpm *H* (09/18/21 9:47 AM) Body Mass Index [18.5-24.99] 33.49 *>HHI* (09/18/21 9:47 AM) Blood Pressure [90-138/55-84 mm Hg] 139/ 82mm Hg *H* (09/18/21 9:47 AM) Respiratory Rate [16-30 br/min] 16 br/mi n (09/18/21 9:47 AM) Temperature [96.8-100.4 DegF] 97.9 DegF (09/18/21 9:47 AM) Blood pressure sites Arm, right (09/18/21 9:47 AM) Temperature Route Temporal (09/18/21 9:47 AM) Weight Obtained Via Standing scale (09/18/21 9:47 AM) Social History Social History Type Response Smoking Status Current every day sm oker; Other: pack a day; entered on: 03/23/15 Sex
--- OUTSIDE RECORDS SUMMARY | 2024-04-19 08:05 | XMS_ITS | Continuity of Care Document ---
Author Organization [facility] Address [address] [place] [address] [address] [place] [address]- Care Team Providers Care Design Verification Engineer Name Role Phone Dev OSMAN, Vidal Nguyen Primary Care Physician Encounter [facility] [place] Date(s): 02/18/22 - 03/20/[address] [place] [address]- Allergies, Adverse Reactions, Alerts Substance Reaction Severity [...] Team Personnel Name: Vidal Méndez MD Address: [address] [place] [id number]
--- OUTSIDE RECORDS SUMMARY | 2024-04-19 08:05 | XMS_ITS | Continuity of Care Document ---
Author Organization [facility] Address [address] [place] [address]- Care Team Providers Care Paper Cutting Machine Operator Name Role Phone Dev OSMAN, Vidal Nguyen Primary Care Physician Encounter [facility] Date(s): 03/08/21 - 04/07/21 [facility] [address] [place] [address]- [place] Allergies, Adverse Reactions, Alerts Substance Reaction [...] 04/12/21 14:37:00 EDT, 03/11/21 14:37:00 EDT, Tablet, [facility][id number], Partial fill upon patient request if the [...]
--- OUTSIDE RECORDS SUMMARY | 2024-04-19 08:05 | XMS_ITS | Continuity of Care Document ---
Author Organization [facility] Address [address] [place] [address]- Care Team Providers Care Bookstore Clerk Name Role Phone Rudy Pruitt Primary Care Physician [phone] [place] [facility] [place] 09[place]19/22 - 10/19/22 [facility] [address] [place] [address]- Attending Physician: Neeta العلي Admitting Physician: AdmtrNeeta [...] Role: PCP Address: Address: [address] [facility] [address] [place], [place] [address] Name: Kallie Ruiz RN Position: [facility] SN Condenser Cleaner Member Role: Primary Care Nurse Name: Rebeca Zacarias RN Position: [facility] ED RN W/OE and Tasks Member Role: Primary Care Nurse Name: Anamaria Hampton SI Position: [facility] Associate Professional Member Role: Primary Care Nurse Care Team Related Persons Name: ADRIANO MOISE Address: home [address] [facility] [address] [place] [address] Name: SENIA MOISE Address: home [address] [address] Name: MIKEY RILEY Address: home [address] [place] [address] Name: AMEYA MCPHERSON Address: home [address] [place] [address]
--- OUTSIDE RECORDS SUMMARY | 2024-04-19 08:05 | XMS_ITS | Continuity of Care Document ---
Author Organization [facility] Address Unknown Care Team Providers Care Agency Development Manager Name Role Phone Vidal Méndez MD Primary Care Physician [place] [facility] [place](s[place] 10/16/21 - 10/23/21 [facility] Encounter Diagnosis Abdominal pain(Discharge Diagnosis) - 10/16/21 Attending Physician: Kavon Quinones MD Referring Physician: [...] 09/18/21 10:25:00 EST, Route to Pharmacy Electronically, [facility] #[id number], Partial fill upon patient... Start Date: 09/18/21 [...] 1 Refills, Maintenance, 04/30/21 13:30:00 EDT, Tablet, [facility] #[id number], Partial fill upon patient request if the [...] inical Service Informant Abdominal pain Discharge Diagnosis 10/16/21 Vital Signs Most recent to oldest [Reference Range]: 1 Height 158 cm (10/16/21 11:21 AM) Weight 82.2 kg (10/16/21 11:21 AM) Pulse Rate [55-90 bpm] 99 bpm *H* (10/16/21 11:21 AM) Body Mass Index [18.5-24.99] 32.93 *>HHI* (10/16/21 11:21 AM) Blood Pressure [90-138/55-84 mm Hg] 128/ 81mm Hg (10/16/21 11:21 AM) Respiratory Rate [16-30 br/min] 16 br/mi n (10/16/21 11:21 AM) Temperature [96.8-100.4 DegF] 98.9 DegF (10/16/21 11:21 AM) Blood pressure sites Arm, right (10/16/21 11:21 AM) Temperature Route Temporal (10/16/21 11:21 AM) Weight Obtained Via Standing scale (10/16/21 11:21 AM) Social History Social History Type Response Smoking Status Current every day sm oker; Other: pack a day; entered on: 03/23/15 Sex
--- OUTSIDE RECORDS SUMMARY | 2024-04-19 08:05 | XMS_ITS | Continuity of Care Document ---
Author Organization [facility] Address Unknown Care Team Providers Care Cardiology Fellow Name Role Phone Vidal Méndez MD Primary Care Physician [place] [facility] [place] 08/06/21 [facility] Attending Physician: Flori MCKEON, Melanie Frausto Referring Physician: Vidal Méndez MD Allergies, Adverse [...] 1 Refills, Maintenance, 04/30/21 13:30:00 EDT, Tablet, [facility][id number], Partial fill upon patient request if the [...] luis manuel, grade III(Confirmed) Active 1outside MD Vital Signs Most recent to oldest [Reference Range]: 1 Height 155 cm (07/30/21 10:27 AM) Weight 82.4 kg (07/30/21 10:27 AM) Pulse Rate [55-90 bpm] 81 bpm (07/30/21 10:27 AM) Body Mass Index [18.5-24.99] 34.3 *>HHI* (07/30/21 10:27 AM) Blood Pressure [90-138/55-84 mm Hg] 133/ 67mm Hg (07/30/21 10:27 AM) Respiratory Rate [16-30 br/min] 16 br/mi n (07/30/21 10:27 AM) Temperature [96.8-100.4 DegF] 98 DegF (07/30/21 10:27 AM) Social History Social History Type Response Smoking Status Current every day sm oker; Other: pack a day; entered on: 03/23/15 Sex
--- OUTSIDE RECORDS SUMMARY | 2024-04-19 08:05 | XMS_ITS | Continuity of Care Document ---
Author Organization [facility] Address [address] [place] [address]- Care Team Providers Care Windows Systems Engineer Name Role Phone Dev OSMAN, Vidal Nguyen Primary Care Physician [place] [facility] [place] - 02/12/22 [facility] [address] [place] [address]- Allergies, Adverse Reactions, Alerts Substance Reaction Severity Status dicyclomine severe itching Active tiZANidine unsure of reaction Active Depakote felt like I was in a fog A ctive Topamax N/V Active Immunizations Given and Recorded Vaccine Date [...]
--- OUTSIDE RECORDS SUMMARY | 2024-04-19 08:05 | XMS_ITS | Continuity of Care Document ---
Author Organization [facility] Address [address] [place] [address]- Care Team Providers Care Roller Engraver Name Role Phone Rudy Pruitt Primary Care Physician [phone] [place] [facility] [place] [facility] [id number] Date(s): 03/04/23 - 05/06/23 [facility] [address] [place] [address]- Attending Physician: Thor Shepard MD Admitting Physician: Thor Shepard MD Allergies, Adverse Reactions, Alerts Substance Reaction [...] Reference Physician Member Role: PCP Address: Address: [address] [place] [address] [address] [place] [address]- Name: Kallie Ruiz RN Position: [facility] Hospital Assistant Floor Covering Printer Member Role: Primary Care Nurse Name: Rebeca Zacarias RN Position: [facility] ED RN W/OE and Tasks Member Role: Primary Care Nurse Name: Anamaria Hampton SI Position: [facility] Member Role: Primary Care Nurse Care Team Related Persons Name: ADRIANO MOISE Address: home [address] [address] Name: SENIA MOISE Address: home [address] [address] Name: MIKEY RILEY Address: home [address] [place] [address] Name: AMEAY MCPHERSON Address: home
--- OUTSIDE RECORDS SUMMARY | 2024-04-19 08:05 | XMS_ITS | Continuity of Care Document ---
Author Organization [facility] Address [address] [place] [address]- Care Team Providers Care Recruitment Intern Name Role Phone Rudy Pruitt Primary Care Physician En[place] [facility] [place] Date(s): 10/02/22 - 11/01/22 [facility] [address] [place] [address]- Attending Physician: Neeta العلي Admitting Physician: Neeta [...] neoplasia, grade III Confirmed Active 1outside MD Social History Social History Type Response Smoking Status Current every day sm oker; Other: pack a day; entered on: 03/23/15 Sex Patient Care team information Care Team Personnel Name: Rudy Pruitt Position: Reference Physician Member Role: PCP Address: Address: [address] [facility] [address] [place], [place] [address] Name: Kallie Ruiz RN Position: [facility] SN Radioisotope Technician Member Role: Primary Care Nurse Name: Rebeca Zacarias RN Position: [facility] ED RN W/OE and Tasks Member Role: Primary Care Nurse Name: Anamaria Hampton SI Position: [facility] ED RN W/OE and Tasks Member Role: Primary Care Nurse Care Team Related Persons Name: ADRIANO MOISE Address: home [address] [facility] [address] [place] [address] Name: SENIA MOISE Address: home [address] [place] [address] Name: MIKEY RILEY Address: home [address] [place] [address] Name: AMEYA MCPHERSON Address: home
--- OUTSIDE RECORDS SUMMARY | 2024-04-19 08:05 | XMS_ITS | Continuity of Care Document ---
Author Organization [facility] Address [address] [place] [address]- Care Team Providers Care Bridge Painter Helper Name Role Phone Tru OSMAN, Galindo Cheney Primary Care Physician [phone] En[place] [facility] [place] Date(s): 08/23/19 - 10/22/19 [facility] [address] [place] [address]- [place] Attending Physician: Kavon Quinones MD Referring Physician: Not on Staff, Referring MD Allergies, Adverse Reactions, Alerts Substance Reaction [...]
--- OUTSIDE RECORDS SUMMARY | 2024-04-19 08:05 | XMS_ITS | Continuity of Care Document ---
Author Organization [facility] Address Unknown Care Team Providers Care Operator Bearer Systems Name Role Phone Dev OSMAN, Vidal Nguyen Primary Care Physician En[place] [facility] [place] Date(s): 03/21/21 - 04/20/21 [facility] Allergies, Adverse Reactions, Alerts [...] EDT, Height Start Date: 03/11/21 Status: Ordered Tylenol Caplet 2 TABS, By [...]
--- OUTSIDE RECORDS SUMMARY | 2024-04-19 08:05 | XMS_ITS | Continuity of Care Document ---
Author Organization [facility] Address [address] [place] [address]- Care Team Providers Care Quality Assurance Auditor Name Role Phone Dev OSMAN, Vidal Nguyen Primary Care Physician [place] [facility] [place](s): 02/28/21 - 03/30/21 [facility] [address] [place] [address]- Allergies, Adverse Reactions, Alerts Substance Reaction Severity [...] 04/12/21 14:37:00 EDT, 03/11/21 14:37:00 EDT, Tablet, [facility][id number], Partial fill upon patient request if the [...]
--- OUTSIDE RECORDS SUMMARY | 2024-04-19 08:05 | XMS_ITS | Continuity of Care Document ---
Author Organization [facility] Address [address] [place] [address] [address] [place] [address]- Care Team Providers Care Hatchery Man Name Role Phone Rudy Pruitt Primary Care Physician [phone] [place] [facility] [place] Date(s): 02/02/24 - 03/03/[address] [place], [place] [address] Attending Physician: Neeta العلي Admitting Physician: AdmtrNeeta [...] Confirmed Active Migraines Confirmed Active Smoking Confirmed 1999 Active Vulvar intraepithelial neoplasia, grade III Confirmed Active 1outside Social History Social History Type Response Smoking Status Current every day sm oker; Other: pack a day; entered on: 03/23/15 Sex Consult note * Rolan Jackson Jr: PERFORM, SIGN, VERIFY Event Display: Consultation Note Authored Date: [id number] Patient: ROXANNA RILEY Age: 43 years Sex: Female : 1975 Associated Diagnoses: None Author: Rolan Jackson Jr TO WHOM IT MAY CONCERN: PLEASE FAX THE PATIENT'S 2 RECENT EMERGENCY ROOM VISITS NOTES AND CT SCAN RESULTS TO [phone]. THANK YOU. KELLY ZARAGOZA Patient Care team information Care Team Personnel Name: Rudy Pruitt Position: Reference Physician Member Role: PCP Address: Address: [address] [place] [address]- Name: Parent RNKallie Position: [facility] Hospital Procedures Analyst Member Role: Primary Care Nurse Name: Rebeca Zacarias RN Position: [facility] ED RN W/OE and Tasks Member Role: Primary Care Nurse Name: Anamaria Hampton SI Position: [facility] Home [employer]ot Rep Member Role: Primary Care Nurse Care Team Related Persons Name: ADRIANO MOISE Address: home [address] [facility] [address] [place] [address] Name: SENIA MOISE Address: home [address] [address] Name: MIKEY RILEY Address: home [address] [place] [address] Name: AMEYA MCPHERSON Address: home
--- OUTSIDE RECORDS SUMMARY | 2024-04-19 08:05 | XMS_ITS | Continuity of Care Document ---
Author Organization [facility] Address [address] [place] [address]- Care Team Providers Care Park Ranger Name Role Phone Rudy Pruitt Primary Care Physician Encounter [facility] [place] Date(s): 10/15/23 - 11/14/23 [facility] [address] [place] [address]- [place] Allergies, Adverse Reactions, Alerts Substance Reaction [...] Physician Member Role: PCP Address: Address: [address] [place] [address]- Name: Kallie Ruiz RN Position: [facility] Hospital Director Immunology Member Role: Primary Care Nurse Name: Rebeca Zacarias RN Position: [facility] ED RN W/OE and Tasks Member Role: Primary Care Nurse Name: Anamaria Hampton SI Position: [facility] Foreclosure Home Inspector Coordinator Member Role: Primary Care Nurse Care Team Related Persons Name: ADRIANO MOISE Address: home [address] [facility] [address] [place] [address] Name: SENIA MOISE Address: home [address] [address] Name: MIKEY RILEY Address: home [address] [place], [place] Name: AMEYA MCPHERSON Address: home
--- OUTSIDE RECORDS SUMMARY | 2024-04-19 08:05 | XMS_ITS | Continuity of Care Document ---
Author Organization [facility] Address [address] [place] [address]- Care Team Providers Care Extruder Operator Helper Name Role Phone Vidal Méndez MD Primary Care Physician [place] [facility] [place]/20 - 07/08/20 [facility] [address] [place] [address] [place] Attending Physician: Neeta العلي Admitting Physician: AdmNeeta [...]
--- OUTSIDE RECORDS SUMMARY | 2024-04-19 08:05 | XMS_ITS | Continuity of Care Document ---
Author Organization [facility] Address [address] [place] [address] [address] [place] [address]- Care Team Providers Care Order Desk Caller Name Role Phone Rudy Pruitt Primary Care Physician [phone] [place] [facility] [place] Date(s): 10/10/22 - 11/09/[address] [place] [address]- Attending Physician: Neeta العلي Admitting Physician: Neeta [...] Physician Member Role: PCP Address: Address: [address] [place] [address]- Name: Kallie Ruiz RN Position: [facility] SN Memory Care Program Resident Member Role: Primary Care Nurse Name: Rebeca Zacarias RN Position: [facility] ED RN W/OE and Tasks Member Role: Primary Care Nurse Name: Anamaria Hampton SI Position: [facility] ED RN W/OE and Tasks Member Role: Primary Care Nurse Care Team Related Persons Name: ADRIANO MOISE Address: home [address] [place] [address] Name: SENIA MOISE Address: home [address] [place] [address] Name: MIKEY RILEY Address: home [address] [facility] [place] [address] Name: AMEYA MCPHERSON Address: home
--- OUTSIDE RECORDS SUMMARY | 2024-04-19 08:05 | XMS_ITS | Continuity of Care Document ---
Author Organization [facility] ter Address [address] [place] [address]- Care Team Providers Care Salesperson Hearing Aids Name Role Phone Vidal Méndez MD Primary Care Physician [place] [facility] [place] Date(s): 02/27/21 - 02/27/[address] [address]- Encounter Diagnosis Abdominal pain(Final) - 02/27/21 Discharge Disposition: A-D/C Home Attending Physician: Rebeca Dias MD Admitting Physician: Rebeca Dias MD Referring Physician: Not on Staff, Referring [...] 11/28/15 14:54:31 Start Date: 11/28/15 Status: Ordered MorPHINE Inj 4 mg, Injection, IV Push Slowly, Every 5 minutes for 3 doses/times, PRN for Pain , Moderate, and SBP greater than 100, Routine, 02/27/21 15:22:00 EDT, Stop date Limited # of times Start Date: 02/27/21 Status: Ordered Paroxetine By Mouth, 0 Refills, Maintenance, 08/04/17 10:02:23 Start Date: 08/04/17 Status: Ordered Smoothie Readi-Cat 2 oral suspension See Instructions, drink 1st bottle by mouth 6 hours before procedure 2nd bottle 90 minutes before procedure, # 900 mL, 0 Refills, Maintenance, 08/15/20 10:47:00 [id number], Partial fill upon patient request if the prescription is... Start Date: 08/15/20 Status: Ordered Problem List Condition Effective Dates Status Health Status Inform ant Abdominal pain(Confirmed) Active Classical migraine(Confirmed) Active Diverticulosis(Confirmed) Active Epileptic seizures(Confirmed) 1 Active Fibromyalgia(Confirmed) Active Migraines(Confirmed) Active Smoking(Confirmed) 1998 Active Vulvar intraepithelial neopl luis manuel, grade III(Confirmed) Active 1outside Vital Signs Most recent to oldest [Reference Range]: 1 2 3 Oxygen Saturation [94-100 %] 99 % (02/27/21 8:31 PM) 98 % (02/27/21 1:32 PM) 98 % (02/27/21 1:14 PM) Pulse Rate [55-90 bpm] 87 bpm (02/27/21 8:31 PM) 98 bpm *H* (02/27/21 1:32 PM) 112 bpm *H* (02/27/21 1:14 PM) Blood Pressure [90-138/55-84 mm Hg] 124/74mm Hg (02/27/21 8:31 PM) 121/72mm Hg (02/27/21 1:32 PM) Respiratory Rate [16-30 br/min] 18 br/min (02/27/21 8:31 PM) 18 br/min (02/27/21 6:24 PM) 18 br/min (02/27/21 3:43 PM) Temperature [96.8-100.4 DegF] 98.6 DegF (02/27/21 8:31 PM) 98.9 DegF (02/27/21 1:32 PM) Mode of Delivery (Oxygen) Room air (02/27/21 8:31 PM) Room air (02/27/21 1:32 PM) Room air (02/27/21 1:14 PM) Temperature Route Oral (02/27/21 8:31 PM) Oral (02/27/21 1:32 PM) Social History Social History Type Response Smoking Status Current every day sm oker; Other: pack a day; entered on: 03/23/15 Sex
--- OUTSIDE RECORDS SUMMARY | 2024-04-19 08:05 | XMS_ITS | Continuity of Care Document ---
Author Organization [facility] Address [address] [place] [address]- Care Team Providers Care Airfreight Operations Agent Name Role Phone Dev OSMAN, Vidal Nguyen Primary Care Physician Encounter 08/20/20 - 08/27/20 [facility] [address], [address] [place] [address]- Attending Physician: Melanie Ruby NP Admitting Physician: Melanie Ruby NP Referring Physician: Melanie Ruby NP Allergies, Adverse Reactions, Alerts Substance Reaction Severity [...] 900 mL, 0 Refills, Maintenance, 08/15/20 10:47:00 [facility], [id number], Partial fill upon patient request if the [...]
--- OUTSIDE RECORDS SUMMARY | 2024-04-19 08:05 | XMS_ITS | Continuity of Care Document ---
Author Organization [facility] Address [address] [place] [address] [address] [place] [address]- Care Team Providers Care Sand Filler Name Role Phone Rudy Pruitt Primary Care Physician [phone] Encounter [facility] [place] Date(s): 06/18/23 - 10/16/[address] [place] [address]- Attending Physician: Anna MCKEON, Ting Huang Allergies, Adverse Reactions, Alerts Substance Reaction Severity [...] Reference Physician Member Role: PCP Address: Address: [address] [place] [address] [address] [place] [address]- Name: Kallie Ruiz RN Position: [facility] Hospital Principal Network Architect Member Role: Primary Care Nurse Name: Rebeca Zacarias RN Position: [facility] ED RN W/OE and Tasks Member Role: Primary Care Nurse Name: Anamaria Hampton SI Position: [facility] SN Linderman Machine Operator Member Role: Primary Care Nurse Care Team Related Persons Name: ADRIANO MOISE Address: home [address] [address] Name: SENIA MOISE Address: home [address] [place] [address] Name: MIKEY RILEY Address: home [address] [place] [address] Name: AMEYA MCPHERSON Address: home
--- OUTSIDE RECORDS SUMMARY | 2024-04-19 08:05 | XMS_ITS | Continuity of Care Document ---
Author Organization [facility] Address [address] [place] [address] [address] [place] [address]- Care Team Providers Care Low Pressure Kettle Operator Name Role Phone Dev OSMAN, Vidal Nguyen Primary Care Physician Encounter [facility] [place] Date(s): 03/19/22 - 04/18/[address] [place] [address]- Attending Physician: Neeta العلي Admitting Physician: AdmNeeta [...] ealth Status Informant Abdominal pain Confirmed Active Classical migraine Confirmed Active Diverticulosis Confirmed Active Epileptic seizures 1 Confirmed Active Fibromyalgia Confirmed Active Migraines Confirmed Active Obese class I Confirmed Active Smoking Confirmed 1998 Active Vulvar intraepithelial neoplasia, grade III Confirmed Active 1rob OSMAN Social History Social History Type Response Smoking Status Current every day sm oker; Other: pack a day; entered on: 03/23/15 Sex Patient Care team information Personnel Name: Dev OSMAN, Vidal Nguyen Address: Address: [address] [place] [address]
--- OUTSIDE RECORDS SUMMARY | 2024-04-19 08:05 | XMS_ITS | Continuity of Care Document ---
Author Organization [facility] Address [address] [place] [address]- Care Team Providers Care High School Home Economics Teacher Name Role Phone Dev OSMAN, Vidal Nguyen Primary Care Physician [place] [facility] [place] Date(s): 11/20/21 - 12/20/21 [facility] [address] [place] [address]- Allergies, Adverse Reactions, Alerts Substance Reaction Severity [...]
--- OUTSIDE RECORDS SUMMARY | 2024-04-19 08:05 | XMS_ITS | Continuity of Care Document ---
Author Organization [facility] Address [address] [place] [address] [address] [place] [address]- Care Team Providers Care Dog Food Dough Mixer Name Role Phone Dev OSMAN, Vidal Nguyen Primary Care Physician En[place] [facility] [place] Date(s): 01/17/20 - 02/16/[address] [place] [address]- [facility] Allergies, Adverse Reactions, Alerts Substance Reaction Severity [...]
--- OUTSIDE RECORDS SUMMARY | 2024-04-19 08:05 | XMS_ITS | Continuity of Care Document ---
Author Organization [facility] Address [address] [place] [address] [address] [place] [address]- Care Team Providers Care Tool And Production Planner Name Role Phone Dev OSMAN, Vidal Nguyen Primary Care Physician Encounter [facility] Date(s): 01/30/20 - 02/29/[address] [place] [address]- [facility] Allergies, Adverse Reactions, Alerts Substance Reaction Severity [...]
--- OUTSIDE RECORDS SUMMARY | 2024-04-19 08:05 | XMS_ITS | Continuity of Care Document ---
Author Organization [facility] Address Unknown Care Team Providers Care Psychologist Name Role Phone Dev OSMAN, Vidal Nguyen Primary Care Physician [place] [facility] [place] 10/16/21 - 11/15/21 [facility] Attending Physician: Neeta العلي Admitting Physician: Neeta [...] 30 tablet, Refills 0, Maintenance, for spasm, 02/02/22 14:58:00 EST, Partial fill upon patient request [...]
--- OUTSIDE RECORDS SUMMARY | 2024-04-19 08:05 | XMS_ITS | Continuity of Care Document ---
Author Organization [facility] Address [address] [place] [address]- Care Team Providers Care Card Cutter Helper Name Role Phone Dev OSMAN, Vidal Nguyen Primary Care Physician En[place] [facility] [place] Date(s): 10/11/19 - 01/21/20 [facility] [address] [place] [address]- [facility] Attending Physician: Ebonie Garcia MD Admitting Physician: Ebonie Garcia MD Referring Physician: Galindo Ott MD Allergies, Adverse Reactions, Alerts Substance Reaction [...]
--- OUTSIDE RECORDS SUMMARY | 2024-04-19 08:05 | XMS_ITS | Continuity of Care Document ---
Author Organization [facility] Address [address] [place] [address]- Care Team Providers Care Clinical Trial Associate Name Role Phone Rudy Pruitt Primary Care Physician [phone] En[place] [facility] [place] Date(s): 09/08/22 - 10/08/22 [facility] [address] [place] [address]- [place] Allergies, Adverse Reactions, Alerts Substance Reaction Severity Status dicyclomine severe itching Active Depakote felt like I was in a fog A ctive tiZANidine unsure of reaction Active Topamax N/V Active Immunizations Given and Recorded [...] Physician Member Role: PCP Address: Address: [address] [facility] [address] [place] [address]- Name: Kallie Ruiz RN Position: [facility] SN Hand Cell Tuber Member Role: Primary Care Nurse Name: Rebeca Zacarias RN Position: [facility] ED RN W/OE and Tasks Member Role: Primary Care Nurse Name: Anamaria Hampton SI Position: [facility] Associate Professional Member Role: Primary Care Nurse Care Team Related Persons Name: ADRIANO MOISE Address: home [address] [facility] [address] [place] [address] Name: SENIA MOISE Address: home [address] [address] Name: MIKEY RILEY Address: home [address] [place] [address] Name: AMEYA MCPHERSON Address: home [address] [place] [address]
--- OUTSIDE RECORDS SUMMARY | 2024-04-19 08:06 | XMS_ITS | Continuity of Care Document ---
Author Organization [facility] Address [address] [place] [address]- Care Team Providers Care Customer Service Teller Name Role Phone Dev OSMAN, Vidal Nguyen Primary Care Physician [id number] Date(s[facility] 10/16/21 - 11/15/21 [facility] [address] [place] [address]- Allergies, Adverse Reactions, Alerts Substance Reaction Severity [...]
--- OUTSIDE RECORDS SUMMARY | 2024-04-19 08:06 | XMS_ITS | Continuity of Care Document ---
Author Organization [facility] Address [address] [place] [address] [address] [place] [address]- Care Team Providers Care Apartment House Manager Name Role Phone Vidal Méndez MD Primary Care Physician [place] [facility] [place] 02/03/22 - 04/18/[address] [place] [address]- Attending Physician: Kavon Quinones MD Referring Physician: [...] Sex Patient Care team information Personnel Name: Vidal Méndez MD Address: Address: [address] [place] [address]
--- OUTSIDE RECORDS SUMMARY | 2024-04-19 08:06 | XMS_ITS | Continuity of Care Document ---
Author Organization [facility] ter Address [address] [place] [address]- Care Team Providers Care Lobster Catcher Name Role Phone Tru OSMAN, Galindo Cheney Primary Care Physician En[facility] [place] Date(s): 07/28/19 - 07/29/[address] [address]- [facility] Discharge Disposition: A-D/C Home Attending Physician: Jean Mahmood MD Admitting Physician: Jean Mahmood MD Referring Physician: Not on Staff, Referring [...] 1 2 3 Oxygen Saturation [94-100 %] 100 % (07/29/19 5:52 AM) 100 % (07/29/19 3:40 AM) 100 % (07/29/19 1:20 AM) Pulse Rate [55-90 bpm] 76 bpm (07/29/19 5:52 AM) 85 bpm (07/29/19 3:40 AM) 78 bpm (07/29/19 1:20 AM) Blood Pressure [90-138/55-84 mm Hg] 103/53mm Hg (07/29/19 5:52 AM) 107/67mm Hg (07/29/19 3:40 AM) 121/50mm Hg (07/29/19 1:20 AM) Respiratory Rate [16-30 br/min] 17 br/min (07/29/19 6:10 AM) 18 br/min (07/29/19 5:52 AM) 16 br/min (07/29/19 3:40 AM) Temperature [96.8-100.4 DegF] 97.9 DegF (07/29/19 5:52 AM) 97.7 DegF (07/29/19 3:40 AM) 97.7 DegF (07/28/19 9:28 PM) Mode of Delivery (Oxygen) Room air (07/29/19 5:52 AM) Room air (07/29/19 3:40 AM) Room air (07/29/19 1:20 AM) Blood pressure sites Arm, left (07/29/19 5:52 AM) Arm, right (07/29/19 3:40 AM) Arm, left (07/29/19 1:20 AM) Temperature Route Oral (07/29/19 5:52 AM) Oral (07/29/19 3:40 AM) Oral (07/28/19 9:28 PM) Social History Social History Type Response Smoking Status Current every day sm oker; Other: pack a day; entered on: 03/23/15 Sex
--- OUTSIDE RECORDS SUMMARY | 2024-04-19 08:06 | XMS_ITS | Continuity of Care Document ---
Author Organization [facility] Address [address] [place] [address]- Care Team Providers Care Manager Collection Name Role Phone Dev OSMAN, Vidal Ngueyn Primary Care Physician Encounter [facility] [place] Date(s): 02/05/22 - 03/07/22 [facility] [address] [place] [address] [place] Allergies, Adverse Reactions, Alerts Substance Reaction [...]
--- OUTSIDE RECORDS SUMMARY | 2024-04-19 08:06 | XMS_ITS | Continuity of Care Document ---
Author Organization [facility] Address [address] [place] [address]- Care Team Providers Care Hand Etcher Name Role Phone Rudy Pruitt Primary Care Physician [place] [facility] [place](s): 10/19/23 - 11/18/23 [facility] [address] [place] [address] [place] Allergies, Adverse Reactions, Alerts Substance Reaction [...] Member Role: PCP Address: Address: [address] [facility] [address] [place] [address]- Name: Kallie Ruiz RN Position: [facility] Hospital Rn Hospice Member Role: Primary Care Nurse Name: Rebeca Zacarias RN Position: [facility] ED RN W/OE and Tasks Member Role: Primary Care Nurse Name: Anamaria Hampton SI Position: [facility] RN Member Role: Primary Care Nurse Care Team Related Persons Name: ADRIANO MOISE Address: home [address] [facility] [address] [place] [address] Name: SENIA MOISE Address: home [address] [address] Name: MIKEY RILEY Address: home [address] [place] [address] Name: AMEYA MCPHERSON Address: home
--- OUTSIDE RECORDS SUMMARY | 2024-04-19 08:06 | XMS_ITS | Continuity of Care Document ---
Author Organization [facility] Address Unknown Care Team Providers Care Delinquency Counselor Name Role Phone Dev OSMAN, Vidal Nguyen Primary Care Physician En[place] [facility] [place] Date(s): 11/11/21 - 12/11/21 [facility] Allergies, Adverse Reactions, Alerts [...] PRN Pain , Severe, 0 Refills, Maintenance, 12/02/14 13:31:48 Start Date: 06/20/14 Status: Ordered Flexeril [...]
--- OUTSIDE RECORDS SUMMARY | 2024-04-19 08:06 | XMS_ITS | Continuity of Care Document ---
Author Organization [facility] ter Address [address] [place] [address]- Care Team Providers Care Hand Spinner Name Role Phone Dev OSMAN, Vidal Nguyen Primary Care Physician En[place] [facility] [place] Date(s): 08/15/20 - 09/15/[address] [address]- Attending Physician: Melanie Ruby NP Admitting Physician: [...] 900 mL, 0 Refills, Maintenance, 08/15/20 10:47:00 [facility], [facility] #[id number], Partial fill upon patient request if the [...]
--- OUTSIDE RECORDS SUMMARY | 2024-04-19 08:06 | XMS_ITS | Continuity of Care Document ---
Author Organization [facility] Address [address] [place] [address]- Care Team Providers Care Accounts Payable Lead Name Role Phone Tru OSMAN, Galindo Cheney Primary Care Physician [phone] En[facility] [place] Date(s): 09/22/19 - 10/02/19 [facility] [address] [place] [address]- [facility] Attending Physician: Neeta العلي Admitting Physician: Neeta [...] Response Smoking Status Current every day sm jerri; Other: pack a day; entered on: 03/23/15 Sex
--- OUTSIDE RECORDS SUMMARY | 2024-04-19 08:06 | XMS_ITS | Continuity of Care Document ---
Author Organization [facility] Address [address] [place] [address]- Care Team Providers Care Go Go Dancer Name Role Phone Vidal Méndez MD Primary Care Physician En[place] [facility] [place] Date(s): 03/05/21 - 06/20/21 [facility] [address] [place] [address]- Attending Physician: Mega Hahn MD Admitting Physician: [...] 1 Refills, Maintenance, 04/30/21 13:30:00 EDT, Tablet, [facility][id number], Partial fill upon patient request if the [...]
--- OUTSIDE RECORDS SUMMARY | 2024-04-19 08:06 | XMS_ITS | Continuity of Care Document ---
Author Organization [facility] Address [address] [place] [address] [address] [place] [address]- Care Team Providers Care Meat Processor Name Role Phone Dev OSMAN, Vidal Nguyen Primary Care Physician [place] [facility] [place] Date(s): 02/11/22 - 03/13/[address] [place] [address]- Allergies, Adverse Reactions, Alerts Substance Reaction Severity [...] Team Personnel Name: Vidal Méndez MD Address: [address] [place] [address]
--- OUTSIDE RECORDS SUMMARY | 2024-04-19 08:06 | XMS_ITS | Continuity of Care Document ---
Author Organization [facility] Address [address] [place] [address]- Care Team Providers Care Solo Truck Driver Name Role Phone Dev OSMAN, Vidal Nguyen Primary Care Physician En[facility] Date(s): 03/11/21 - 04/10/21 [facility] [address] [place] [address]- Attending Physician: Neeta العلي Admitting Physician: Neeta [...] 04/12/21 14:37:00 EDT, 03/11/21 14:37:00 EDT, Tablet, [facility] #[id number], Partial fill upon patient request if the [...]
--- OUTSIDE RECORDS SUMMARY | 2024-04-19 08:06 | XMS_ITS | Continuity of Care Document ---
Author Organization [facility] ter Address [address] [place] [address]- Care Team Providers Care Plastic Manager Name Role Phone Vidal Méndez MD Primary Care Physician [place] [facility] [place](s[place] 01/30/20 - 01/31/[address] [address]- [facility] Discharge Disposition: A-D/C Home Attending Physician: [place] OSMAN, Dannielle Pulliam Admitting Physician: Dannielle Golden MD Referring Physician: Not on Staff, Referring [...] 3 Oxygen Saturation [94-100 %] 100 % (01/31/20 3:59 AM) 95 % (01/30/20 11:38 PM) 99 % (01/30/20 5:49 PM) Pulse Rate [55-90 bpm] 73 bpm (01/31/20 3:59 AM) 96 bpm *H* (01/30/20 11:38 PM) 73 bpm (01/30/20 5:49 PM) Blood Pressure [90-138/55-84 mm Hg] 109/53mm Hg (01/31/20 3:59 AM) 138/73mm Hg (01/30/20 11:38 PM) 115/69mm Hg (01/30/20 5:49 PM) Respiratory Rate [16-30 br/min] 20 br/min (01/31/20 3:59 AM) 20 br/min (01/30/20 11:38 PM) 17 br/min (01/30/20 5:49 PM) Temperature [96.8-100.4 DegF] 98.0 DegF (01/31/20 3:59 AM) 99.2 DegF (01/30/20 11:38 PM) 98.7 DegF (01/30/20 5:49 PM) Mode of Delivery (Oxygen) Room air (01/31/20 3:59 AM) Room air (01/30/20 11:38 PM) Room air (01/30/20 5:49 PM) Blood pressure sites Arm, right (01/30/20 5:49 PM) Temperature Route Oral (01/31/20 3:59 AM) Oral (01/30/20 11:38 PM) Oral (01/30/20 5:49 PM) Social History Social History Type Response Smoking Status Current every day sm oker; Other: pack a day; entered on: 03/23/15 Sex
--- OUTSIDE RECORDS SUMMARY | 2024-04-19 08:06 | XMS_ITS | Continuity of Care Document ---
Author Organization [facility] Address [address] [place] [address] [address] [place] [address]- Care Team Providers Care Reducer Name Role Phone Dev OSMAN, Vidal Nguyen Primary Care Physician Encounter [facility] Date(s): 01/31/20 - 03/01/[address] [place] [address]- [facility] Allergies, Adverse Reactions, Alerts Substance Reaction Severity [...]
--- OUTSIDE RECORDS SUMMARY | 2024-04-19 08:06 | XMS_ITS | Continuity of Care Document ---
Author Organization [facility] Address [address] [place] [address]- Care Team Providers Care Welder Production Line Gas Name Role Phone Galindo Ott MD Primary Care Physician En[place] [facility] [place] Date(s): 04/18/19 - 11/12/19 [facility] [address] [place] [address]- [place] Attending Physician: Anyi Rockwell MD Admitting Physician: Anyi Rockwell MD Referring Physician: Galindo Ott MD Allergies, [...]
--- OUTSIDE RECORDS SUMMARY | 2024-04-19 08:06 | XMS_ITS | Continuity of Care Document ---
Author Organization [facility] Address [address] [facility], 3r d Floor, [address] [place] [address]- Care Team Providers Care Smooth Stucco Resurfacer Name Role Phone Dev OSMAN, Vidal Nguyen Primary Care Physician En[facility] Date(s): 07/17/20 - 08/16/20 [facility] [address], 3[address] Floor, [address] [place] [address] Attending Physician: Neeta العلي Admitting Physician: AdmtrNeeta Referring Physician: Admtr, ArBhupinder Allergies, Adverse Reactions, Alerts Substance Reaction Severity [...] 900 mL, 0 Refills, Maintenance, 08/15/20 10:47:00 [facility], [facility] #[id number], Partial fill upon patient request if the [...]
--- OUTSIDE RECORDS SUMMARY | 2024-04-19 08:06 | XMS_ITS | Continuity of Care Document ---
Author Organization [facility] Address [address] [place] [address]- Care Team Providers Care Doctor Of Optometry Name Role Phone Rudy Pruitt Primary Care Physician [place] [facility] [place]17/23 - 10/01/23 [facility] [address] [place] [address]- Attending Physician: Thor Shepard MD Admitting Physician: [...] Physician Member Role: PCP Address: Address: [address] [facility] [address] [place] [address]- Name: Kallie Ruiz RN Position: [facility] Hospital Web Page Developer Member Role: Primary Care Nurse Name: Rebeca Zacarias RN Position: [facility] ED RN W/OE and Tasks Member Role: Primary Care Nurse Name: Anamaria [place] SI Position: [facility] SN Art Therapy Certified Supervisor Member Role: Primary Care Nurse Care Team Related Persons Name: ADRIANO MOISE Address: home [address] [facility] [address] [place] [address] Name: SENIA MOISE Address: home [address] [place] [address] Name: MIKEY RILEY Address: home [address] [place] [address] Name: AMEYA MCPHERSON Address: home
--- OUTSIDE RECORDS SUMMARY | 2024-04-19 08:06 | XMS_ITS | Continuity of Care Document ---
Author Organization [facility] Address [address] [place] [address]- Care Team Providers Care Information Support Project Manager Name Role Phone Dev OSMAN, Vidal Nguyen Primary Care Physician [place] [facility] [place](s): 06/04/20 - 07/04/20 [facility] [address] [place] [address] Allergies, Adverse Reactions, Alerts Substance [...]
--- OUTSIDE RECORDS SUMMARY | 2024-04-19 08:06 | XMS_ITS | Continuity of Care Document ---
Author Organization [facility] Address [address] [place] [address] [address] [place] [address]- Care Team Providers Care Boat Rental Clerk Name Role Phone Dev OSMAN, Vidal Nguyen Primary Care Physician Encounter [facility] Date(s): 02/15/20 - 03/16/[address] [place] [address]- [facility] Attending Physician: Neeta العلي Admitting Physician: AdmtrNeeta Referring Physician: Admtr, Ar8 Allergies, Adverse Reactions, Alerts Substance Reaction Severity [...]
--- OUTSIDE RECORDS SUMMARY | 2024-04-19 08:06 | XMS_ITS | Continuity of Care Document ---
Author Organization [facility] Address Unknown Care Team Providers Care Manufacturing Operator Name Role Phone Dev OSMAN, Vidal Nguyen Primary Care Physician [place] [facility] [place] 11/07/21 - 12/07/21 [facility] Allergies, Adverse Reactions, Alerts Substance [...]
--- OUTSIDE RECORDS SUMMARY | 2024-04-19 08:06 | XMS_ITS | Continuity of Care Document ---
Author Organization [facility] Address [address] [place] [address] [address] [place] [address]- Care Team Providers Care Coining Press Operator Name Role Phone Tru OSMAN, Galindo Cheney Primary Care Physician Encounter [facility] Date(s): 08/31/19 - 09/10/[address] [place] [address]- [facility] Attending Physician: Neeta العلي Admitting Physician: Neeta [...]
--- OUTSIDE RECORDS SUMMARY | 2024-04-19 08:06 | XMS_ITS | Continuity of Care Document ---
Author Organization [facility] Address [address] [place] [address] [address] [place] [address]- Care Team Providers Care Cafeteria Table Attendant Name Role Phone Rudy Pruitt Primary Care Physician [phone] [place] [facility] [place] 09/19/22 - 11/05/[address] [place] [address]- Attending Physician: Anna MCKEON, Ting Huang Referring Physician: Rudy Pruitt Allergies, Adverse Reactions, [...] Physician Member Role: PCP Address: Address: [address] [facility] [address] [place] [address]- Name: Kallie Ruiz RN Position: [facility] SN Photographic Process Worker Member Role: Primary Care Nurse Name: Rebeca Zacarias RN Position: [facility] ED RN W/OE and Tasks Member Role: Primary Care Nurse Name: Anamaria [place] SI Position: [facility] ED RN W/OE and Tasks Member Role: Primary Care Nurse Care Team Related Persons Name: ADRIANO MOISE Address: home [address] [address] Name: SENIA MOISE Address: home [address] [place] [address] Name: MIKEY RILEY Address: home [address] [place] [address] Name: AMEYA MCPHERSON Address: home
--- OUTSIDE RECORDS SUMMARY | 2024-04-19 08:06 | XMS_ITS | Continuity of Care Document ---
Author Organization [facility] Address [address] [place] [address]- Care Team Providers Care Electric Truck Crane Operator Name Role Phone Rudy Pruitt Primary Care Physician [place] [facility] [place](s[place] 04/06/23 - 05/06/23 [facility] [address] [place] [address]- Attending Physician: Neeta العلي Admitting Physician: AdmtrNeeta [...] Physician Member Role: PCP Address: Address: [address] [facility] [address] [place] [address]- Name: Kallie Ruiz RN Position: [facility] Hospital Institutional Cook Member Role: Primary Care Nurse Name: Rebeca Zacarias RN Position: [facility] ED RN W/OE and Tasks Member Role: Primary Care Nurse Name: Anamaria [place] SI Position: [facility] MA Member Role: Primary Care Nurse Care Team Related Persons Name: ADRIANO MOISE Address: home [address] [facility] [address] [place] [address] Name: SENIA MOISE Address: home [address] [place] [address] Name: MIKEY RILEY Address: home [address] [place] [address] Name: AMEYA MCPHERSON Address: home
--- OUTSIDE RECORDS SUMMARY | 2024-04-19 08:06 | XMS_ITS | Continuity of Care Document ---
Author Organization [facility] Address Unknown Care Team Providers Care Laserist Name Role Phone Dev OSMAN, Vidal Nguyen Primary Care Physician Encounter [facility] [place] Date(s): 03/05/21 - 04/04/21 [facility] Allergies, Adverse Reactions, Alerts [...] 04/12/21 14:37:00 EDT, 03/11/21 14:37:00 EDT, Tablet, [facility][id number], Partial fill upon patient request if the [...]
--- OUTSIDE RECORDS SUMMARY | 2024-04-19 08:06 | XMS_ITS | Continuity of Care Document ---
Author Organization [facility] Address [address] [place] [address] ve [address] [place] [address]- Care Team Providers Care Decaler Name Role Phone Dev OSMAN, Vidal Nguyen Primary Care Physician [facility] Date(s): 08/14/20 - 09/13/20 [facility] [address] [place], [place] [address] Allergies, Adverse Reactions, Alerts Substance Reaction [...] Refills, Maintenance, 08/15/20 10:47:00 [facility] #[id number], Partial fill upon patient request if the [...]
--- OUTSIDE RECORDS SUMMARY | 2024-04-19 08:06 | XMS_ITS | Continuity of Care Document ---
Author Organization [facility] Address [address] [place] [address] [address] [place] [address]- Care Team Providers Care Dietitian Teacher Name Role Phone Rudy Pruitt Primary Care Physician Encounter [facility] Date(s): 04/30/23 - 05/30/23 [facility] [address] [place], [place] [address] Allergies, Adverse Reactions, Alerts Substance Reaction Severity [...] Role: PCP Address: Address: [address] [facility] [address] [place] [address]- Name: Kallie Ruiz RN Position: [facility] Hospital Mobile Lounge Driver Member Role: Primary Care Nurse Name: Rebeca Zacarias RN Position: [facility] ED RN W/OE and Tasks Member Role: Primary Care Nurse Name: Anamaria [place] SI Position: [facility] [place] Member Role: Primary Care Nurse Care Team Related Persons Name: ADRIANO MOISE Address: home [address] [facility] [address] [place] [address] Name: SENIA MOISE Address: home [address] [address] Name: MIKEY RILEY Address: home [address] [place] [address] Name: AMEYA MCPHERSON Address: home
--- OUTSIDE RECORDS SUMMARY | 2024-04-19 08:06 | XMS_ITS | Continuity of Care Document ---
Author Organization [facility] Address [address] [place] [address] [address] [place] [address]- Care Team Providers Care Electrical Systems Engineer Name Role Phone Rudy Pruitt Primary Care Physician [phone] Encounter [facility] [place] Date(s): 11/04/23 - 03/03/[address] [place] [address]- Attending Physician: Anna MCKEON, Ting Huang Allergies, [...] Reference Physician Member Role: PCP Address: Address: [address] [place] [address] [address] [place] [address]- Name: Kallie Ruiz RN Position: [facility] Hospital Concrete Pipe Plant Supervisor Member Role: Primary Care Nurse Name: Rebeca Zacarias RN Position: [facility] ED RN W/OE and Tasks Member Role: Primary Care Nurse Name: Anamaria [place] SI Position: [facility] SN Sales And Service Associate Member Role: Primary Care Nurse Care Team Related Persons Name: ADRIANO MOISE Address: home [address] [address] Name: SNEIA MOISE Address: home [address] [place] [address] Name: MIKEY RILEY Address: home [address] [place] [address] Name: AMEYA MCPHERSON Address: home
--- OUTSIDE RECORDS SUMMARY | 2024-04-19 08:06 | XMS_ITS | Continuity of Care Document ---
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) - 10/10/22 Attending Physician: Anna MCKEON, Ting Huang Referring [...] intraepithelial neoplasia, grade III Confirmed Active 1outside Diagnosis Diagnosis Type Effective Dates Health Status Clinical Service Informant AIN (anal intraepithelial neoplasia) anal canal Discharge Diagnosis 10/10/22 Vital Signs Most recent to oldest [Reference Range]: 1 Height 158 cm (10/10/22 1:05 PM) Weight 85 kg (10/10/22 1:05 PM) Body Mass Index [18.5-24.99 kg/m2] 34.05 kg/m2 *>HHI* (10/10/22 1:05 PM) Respiratory Rate [16-30 br/min] 18 br/mi n (10/10/22 1:05 PM) Temperature [96.8-100.4 DegF] 97.6 DegF (10/10/22 1:05 PM) Blood pressure sites Arm, right (10/10/22 1:05 PM) Temperature Route Temporal (10/10/22 1:05 PM) Weight Obtained Via Standing scale (10/10/22 1:05 PM) Social History Social History Type Response Smoking Status Current every day sm oker; Other: pack a day; entered on: 03/23/15 Sex Patient Care team information Care Team Personnel Name: Rudy Pruitt Position: Reference Physician Member Role: PCP Address: Address: [address] [facility] [address] [place], [place] [address] Name: Parent RNKallie Position: [facility] SN Gis Physical Scientist Member Role: Primary Care Nurse Name: Rebeca Zacarias RN Position: [facility] ED RN W/OE and Tasks Member Role: Primary Care Nurse Name: Anamaria [place] SI Position: [facility] Associate Professional Member Role: Primary Care Nurse Care Team Related Persons Name: ADRIANO MOISE Address: home [address] [facility] 3 [place] [address] Name: SENIA MOISE Address: home [address] [address] Name: MIKEY RILEY Address: home [address] [place] [address] Name: AMEYA MCPHERSON Address: home [address] [place] [address]
--- OUTSIDE RECORDS SUMMARY | 2024-04-19 08:06 | XMS_ITS | Continuity of Care Document ---
Author Organization [facility] Address [address] [place] [address] [address] [place] [address]- Care Team Providers Care Mailing Machine Operator Name Role Phone Tru OSMAN, Galindo Cheney Primary Care Physician Encounter [facility] [place] Date(s): 08/31/19 - 09/07/[address] [place] [address]- [place] Encounter Diagnosis Abdominal pain(Discharge Diagnosis) - 08/31/19 Attending Physician: Kavon Quinones MD Allergies, Adverse [...] 0, Maintenance, 03/26/18 9:27:58 EDT Start Date: 9/7/18 Status: Ordered zonisamide 100 mg oral capsule [...] inical Service Informant Abdominal pain Discharge Diagnosis 08/31/19 Vital Signs Most recent to oldest [Reference Range]: 1 Height 158 cm (08/31/19 2:09 PM) Weight 83 kg (08/31/19 2:09 PM) Pulse Rate [55-90 bpm] 94 bpm *H* (08/31/19 2:09 PM) Body Mass Index [18.5-24.99] 33.25 *>HHI* (08/31/19 2:09 PM) Blood Pressure [90-138/55-84 mm Hg] 135/ 79mm Hg (08/31/19 2:09 PM) Respiratory Rate [16-30 br/min] 16 br/mi n (08/31/19 2:09 PM) Temperature [96.8-100.4 DegF] 97.9 DegF (08/31/19 2:09 PM) Blood pressure sites Arm, right (08/31/19 2:09 PM) Temperature Route Temporal (08/31/19 2:09 PM) Weight Obtained Via Standing scale (08/31/19 2:09 PM) Social History Social History Type Response Smoking Status Current every day sm oker; Other: pack a day; entered on: 03/23/15 Sex
--- OUTSIDE RECORDS SUMMARY | 2024-04-19 08:07 | XMS_ITS | Continuity of Care Document ---
Author Organization [facility] Address [address] [place] [address]- Care Team Providers Care Leather Piece Inspector Name Role Phone Dev OSMAN, Vidal Nguyen Primary Care Physician Encounter [facility] [place] Date(s): 03/12/21 - 04/11/21 [facility] [address] [place] [address]- [place] Allergies, Adverse Reactions, Alerts Substance Reaction [...] 04/12/21 14:37:00 EDT, 03/11/21 14:37:00 EDT, Tablet, [facility] #[id number], Partial fill upon patient request if the [...]
--- OUTSIDE RECORDS SUMMARY | 2024-04-19 08:07 | XMS_ITS | Continuity of Care Document ---
Author Organization [facility] Address [address] [place] [address] [address] [place] [address]- Care Team Providers Care Work Car Operator Name Role Phone Dev OSMAN, Vidal Nguyen Primary Care Physician [place] [facility] [place](s): 08/13/20 - 09/12/20 [facility] [address] [place], [place] [address] Allergies, Adverse Reactions, Alerts Substance Reaction Severity [...] Maintenance, 08/15/20 10:47:00 [facility][id number], Partial fill upon patient request if the [...]
--- OUTSIDE RECORDS SUMMARY | 2024-04-19 08:07 | XMS_ITS | Continuity of Care Document ---
Author Organization [facility] ter Address [address] [place] [address]- Care Team Providers Care Bobtail Driver Name Role Phone Dev OSMAN, Vidal Nguyen Primary Care Physician [place] [facility] [place] Date(s): 08/17/20 - 09/28/[address] [address]- Attending Physician: Melanie Ruby NP Admitting Physician: [...] 900 mL, 0 Refills, Maintenance, 08/15/20 10:47:00 [facility], [facility] #[id number], Partial fill upon patient request if the [...]
--- OUTSIDE RECORDS SUMMARY | 2024-04-19 08:07 | XMS_ITS | Continuity of Care Document ---
Author Organization [facility] Address [address] [place] [address]- Care Team Providers Care Kitchen Food Assembler Name Role Phone Dev OSMAN, Vidal Nguyen Primary Care Physician En[facility] [place] Date(s): 03/20/20 - 04/19/20 [facility] [address] [place] [address]- [facility] Attending Physician: Neeta العلي Admitting [...]
--- OUTSIDE RECORDS SUMMARY | 2024-04-19 08:07 | XMS_ITS | Continuity of Care Document ---
Author Organization [facility] Address [address] [place] [address] [address] [place] [address]- Care Team Providers Care Party Plan Selling Distributor Name Role Phone Dev OSMAN, Vidal Nguyen Primary Care Physician Encounter [facility] Date(s): 01/30/20 - 02/29/[address] [place] [address]- [facility] Allergies, Adverse Reactions, Alerts Substance Reaction [...]
--- OUTSIDE RECORDS SUMMARY | 2024-04-19 08:07 | XMS_ITS | Continuity of Care Document ---
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
--- OUTSIDE RECORDS SUMMARY | 2024-04-19 08:07 | XMS_ITS | Continuity of Care Document ---
Author Organization [facility] Address [address] [place] [address]- Care Team Providers Care Vice President Lending Name Role Phone Dev OSMAN, Vidal Nguyen Primary Care Physician Encounter [facility] [place] Date(s): 02/07/20 - 04/19/20 [facility] [address] [place] [address]- [facility] Attending Physician: Mega Hahn MD Admitting Physician: [...]
--- OUTSIDE RECORDS SUMMARY | 2024-04-19 08:07 | XMS_ITS | Patient Health Record ---
Author Organization [facility] Address [address] [place] [address] Care Team Providers Care Accordion Tuner Name Role Phone SHANITA JONES Primary Care Provider Wade waters Allergies Allergen (clinical drug ingredient) Drug/Non Drug Allergy documented on EMR Reaction Allergy Type Onset Date Status valproate Depakote Unknown Drug Allergy Active topiramate Topamax Unknown Drug Allergy Active Reason For Referral No Information Medications Medication SIG (Take, Route, Frequency, Duration) Notes Start Date End Date Status Dicyclomine HCl 20 MG 1 tablet Orally Fo ur times a day Active Butalbital-Acetaminophen 50-300 MG 1 capsule as needed Orally Active Ibuprofen 800 MG 1 tablet with food o r milk as needed Orally Active Cyclobenzaprine HCl 10 MG 1 tablet at be dtime as needed Orally 3 x daily Active clonazePAM 0.5 MG 1 tablet Orally Once a day Active valACYclovir HCl 500 MG 1 tablet Orally Once a day as needed Active Diclofenac Sodium Ac tive Social History Tobacco Use: Social History Observation Description Date Details (start date - stop date) Current Smoker 10/30/1986 - NA Tobacco Use/Smoking Question Answer Notes Are you a current smoker How often do you smoke cigarettes? every day How many cigarettes a day do you smoke? 11-20 How soon after you wake up d o you smoke your first cigarette? 6-30 minutes Are you interested in quitting? Thinking about q uitting When did you start smoking? 10/30/1986 Additional Findings: Tobacco User Modera te cigarette smoker (10-19 cigs/day) Problems Problem Type SNOMED Code ICD Code Onset Dates Problem Status W/U Status Risk Notes Problem Lumbosacral spondylosis without myelopathy (42197910) Spondylosis without myelopathy or radiculopathy, lumbar region (M47.816) Active confirmed Plan Of Treatment No Information Insurance Providers Payer Name Payer Address Payer Phone Subscriber Number Group Number Insured Name Patient Relationship to Insured Coverage Start Date Coverage End Date Medicare B [facility] [address] [place] [phone] [id number] RAMIREZ RILEYE Self - patient is the insured [employer] of [place] [address] [place] [address] [id number] RAMIREZ RILEYE Self - patient is the insured Medical (General) History Medical History History ICD Code migraine Hx of kidney stone depression/anxiety fibromyalgia pre cancer cells constipation diarrhea hernia siezure disorder panic attacks DDD SCOLIOSIS disc disease diverticulitis Surgical History Surgery Date(Month/Year) laparoscopic scar tissue removal x 2 201 08/2021 vulva, lapia, anal surgeries to remove p re cancer cells wisdom teeth removal cervical dysplasia Hospitalization History Reason Date(Month/Year) sigmoid colol section removal umbilical hernia tonsilectomy
--- OUTSIDE RECORDS SUMMARY | 2024-04-19 08:07 | XMS_ITS | Continuity of Care Document ---
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) - 10/14/23 Attending Physician: Anna MCKEON, Ting Huang Referring [...] (anal intraepithelial neoplasia) anal canal Discharge Diagnosis 10/14/23 Vital Signs Most recent to oldest [Reference Range]: 1 Height 158 cm (10/14/23 2:48 PM) Weight 70.8 kg (10/14/23 2:48 PM) Pulse Rate [55-90 bpm] 84 bpm (10/14/23 2:48 PM) Body Mass Index [18.5-24.99 kg/m2] 28.36 kg/m2 *H* (10/14/23 2:48 PM) Blood Pressure [90-138/55-84 mm Hg] 115/ 75mm Hg (10/14/23 2:48 PM) Temperature [96.8-100.4 DegF] 96.6 DegF *L* (10/14/23 2:48 PM) Blood pressure sites Arm, right (10/14/23 2:48 PM) Temperature Route Temporal (10/14/23 2:48 PM) Social History Social History Type Response Smoking Status Current every day sm oker; Other: pack a day; entered on: 03/23/15 Sex Patient Care team information Care Team Personnel Name: Rudy Pruitt Position: Reference Physician Member Role: PCP Address: Address: [address] [place], [place] [address] Name: Parent RNKallie Position: [facility] Hospital Care Management Specialist Member Role: Primary Care Nurse Name: Rebeca Zacarias RN Position: [facility] ED RN W/OE and Tasks Member Role: Primary Care Nurse Name: Anamaria Hampton SI Position: [facility] SN Spool Maker Member Role: Primary Care Nurse Care Team Related Persons Name: ADRIANO MOISE Address: home [address] [place] [address] Name: SENIA MOISE Address: home [address] [address] Name: MIKEY RILEY Address: home [address] [place] [address] Name: AMEYA MCPHERSON Address: home
--- NOTE | 2024-04-19 08:09 | ED.SKABFB ---
HPI - Skin/Abscess/Foreign Bdy General Chief complaint: Skin/Abscess/Foreign Body Stated complaint: Infected finger Time Seen by Provider: 04/19/24 07:56 Source: patient and RN notes reviewed Mode of arrival: ambulatory Limitations: no limitations History of Present Illness ED Provider: Franchesca Wong PA-C HPI narrative: This is a 49-year-old female, with a history of hyperlipidemia, migraines and anxiety and depression, who presents emergency department with complaints of right 3rd finger pain and swelling since last night. Patient states that yesterday she thought that she had a splinter in her right 3rd digit. 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 She states that [facility] and was evaluated by a nurse yesterday and was told that if it becomes any more painful or swollen to seek emergent care. She states that she awoke this morning in her right finger was more swollen, red and now she is having difficulty with movement of her finger. She denies any fevers or chills. Denies taking any medications prior to arrival. No history of diabetes. No hx of IVDA. She states that her last tetanus shot was 1-2 years ago. No other complaints or concerns at this time. MD complaint: discoloration Onset (ago): day(s) Quality: aching Relieving factors: none Exacerbating factors: none Context: none Associated symptoms: denies other symptoms Treatments prior to arrival: other (Attempted to remove possible splinter/foreign body out of finger) Related Data Home Medications ?Medication ?Instructions ?Recorded ?Confirmed butalbital 50 mg-acetaminophen 325 1 cap PO Q6H PRN Pain 02/26/23 02/17/24 mg-caffeine 40 mg-codeine 30 mg cap paroxetine HCl 20 mg tablet 20 mg PO DAILY 02/26/23 02/17/24 diclofenac sodium 75 mg 75 mg PO BID 02/17/24 02/17/24 tablet,delayed release valacyclovir 500 mg tablet 500 mg PO DAILY 02/17/24 02/17/24 fluticasone propionate 50 1 spray intranasal BID 04/19/24 mcg/actuation nasal spray,suspension Previous Rx's ?Medication ?Instructions ?Recorded acetaminophen 500 mg tablet 500 mg PO Q6H PRN fever #60 tabs 04/23/23 cyclobenzaprine 10 mg tablet 20 mg (2 x 10 mg) PO BEDTIME PRN 10/20/23 muscle spasm 30 days #60 tabs gabapentin 300 mg capsule 300 mg PO BID 30 days #60 caps 01/05/24 ibuprofen 800 mg tablet 800 mg PO TID PRN pain 30 days #90 03/08/24 tabs Allergies Allergy/AdvReac Type Severity Reaction Status Date / Time topiramate [From TOPAMAX] Allergy Mild NAUSEA & Verified 04/19/24 07:48 VOMITING divalproex sodium AdvReac Unknown NAUSEA & Verified 04/19/24 07:48 [From DEPAKOTE] VOMITING Review of Systems Review of Systems: Yes all other systems are reviewed and are negative Constitutional: Constitutional: Reports as per [facility] Past Medical History Attestation statement: The following information was validated with the patient. Medical History Wrist pain, left Ankle pain, left Obesity Restless leg syndrome Migraine Anxiety Fibromyalgia Surgical History H/O rectal polypectomy History of surgery History of hernia repair History of wisdom tooth extraction History of tonsillectomy History of umbilical hernia repair H/O LEEP History of colectomy Family History Family History Father CVD (cardiovascular disease) Myocardial infarction Mother Chronic mental illness Dementia Myocardial infarction, Onset Age: 40 Seizure Sister In good health Son In good health Maternal Aunt Breast CA Paternal Aunt Breast CA Other Mental health disorder Social History Social History Housing: Apartment Alcohol intake: current Alcohol intake frequency: does not drink Patient Tobacco Use Status: Current everyday Tobacco user Tobacco use type: Cigarette Years Smoked: 15 e-Cigarette/Vaping Use: Never Used Second Hand Smoke Exposure: Yes Substance Use Type: Marijuana Advance Directives: Yes Advance Directives on File: Yes Advance Directives Date on File: 09/17/22 Do you have a plan to hurt others: No Plan service: No Current occupational status: disabled Cognitive needs: No Hearing needs: No Vision needs: No Physical Exam Vital Signs: Vital Signs: Last Vital Signs Temp 97.9 F 04/19/24 11:09 Pulse 77 04/19/24 11:09 Resp 16 04/19/24 11:09 BP 141/75 H 04/19/24 11:09 Pulse Ox 100 04/19/24 11:09 O2 Del Method Room Air 04/19/24 11:09 BMI result Body Mass Index 27.4 Const: General: cooperative, comfortable and no acute distress Orientation/consciousness: patient oriented x3 Limitations: no limitations HEENT: Head: Yes normal to inspection, Yes normocephalic and Yes atraumatic Ears: hearing grossly normal bilaterally General nose exam: Normal external nose present Face and sinus: Yes normal facial exam Mouth: Normal oral and palatal mucosa present, oropharynx normal and moist mucous membranes Throat: Yes posterior oropharynx normal Eyes: General: appearance normal, both eyes and all related structures Eyelids: Yes eyelids normal Conjunctivae: conjunctivae normal Sclerae: sclerae normal Pupils: Equal, round and reactive pupils present EOM: EOMs intact bilaterally Neck: Neck: Yes normal visual inspection, Yes full ROM and Yes no lymphadenopathy Lymphatic: no lymphadenopathy noted Chest: Chest palpation & inspection: normal inspection of the chest Resp: Effort & Inspection: normal respiratory effort and able to speak in complete sentences Auscultation: clear to auscultation bilaterally, no crackles, no rales, no rhonchi and no wheezes Cardio: Rate: regular rate Rhythm: regular rhythm Heart sounds: S1 normal heart sound present and S2 normal heart sound present GI: Inspection: Yes normal to inspection Skin: General skin exam: no rashes or lesions noted Trauma: no lacerations or abrasions Wounds: no wounds Neuro: General: patient oriented x3 and moves all extremities Cranial nerves: Yes Equal, round and reactive pupils present Extrem: Other: Right 3rd digit, is edematous and erythematous, with decreased range of motion, with tenderness to palpation. With erythema edema and increased warmth along the MCP. No exquisite pain. Able to flex and extend however decreased. She does have a discoloration noted to the DIP, appears to be a blood blister. Distal sensation circulation intact. Capillary refill 2 seconds. She does have faint lymphangitic spread noted to her posterior forearm, seems to and just 2 in inferior to her AC. Strong radial pulse. Able to flex and extend at the wrist. General: Yes normal to inspection Right upper extremity: normal to inspection Left upper extremity: normal to inspection Right lower extremity: normal to inspection Left lower extremity: normal to inspection Course Reevaluation(s) Reevaluation #1: Patient was seen by shipping and receiving specialist, Buster Barrientos PA-C, who recommends warm water soaks 4 times per day for 20 minutes. Also recommending to drain blood blister. At this moment, she does not have any signs of tenosynovitis. Agree with admission with IV antibiotics. Orthopedic team will continue to follow. Dr Mireles recommends IV vancomycin. Labs returned, she does have leukocytosis at 18.7, with left shift, chemistry revealing no significant electrolyte derangement. X-ray still pending at this time. Time: 09:35 Reevaluation #2: Deroofed blister procedure by Dr. Mireles, my supervising physician. Added lactic acidosis as patient initially had a pulse of 110 however again I re-evaluated patient, she was not tachycardic during my assessment. Heart rate 77 upon re-evaluation. Discussed case with Dr. Yousif who recommends obtaining lactic acid level. Transfer of care initiated. Time: 11:43 Medications Administered Discontinued Medications Generic Name Dose Route Start Last Admin Trade Name Freq PRN Reason Stop Dose Admin Sodium Chloride 1,000 mls @ 999 mls/hr 04/19/24 09:28 04/19/24 11:08 Ns IV 04/19/24 10:28 Infused .Q1H1M ONE Infusion Vancomycin HCl 1,000 mg/ 270 mls @ 270 mls/hr 04/19/24 09:45 04/19/24 11:08 Sodium Chloride IV 04/19/24 10:44 Infused ONCE ONE Infusion Ketorolac Tromethamine 30 mg 04/19/24 09:49 04/19/24 10:02 Ketorolac Tromethamine 30 Mg/Ml Vial IVPUSH 04/19/24 09:50 30 mg ONCE ONE Administration Lidocaine HCl 5 ml 04/19/24 09:40 04/19/24 11:08 Lidocaine Hcl 1 % Mpf 5 Ml Vial INFILTRATI 04/19/24 09:41 Not Given ONCE ONE Morphine Sulfate 4 mg 04/19/24 11:04 04/19/24 11:25 Morphine Sulfate 4 Mg/Ml Cartridge IVPUSH 04/19/24 11:05 4 mg ONCE ONE Administration Protocol Medical Decision Making Medical Decision Making MDM Narrative: This is a 49-year-old female, with a history of homelessness, hyper lipidemia, depression/anxiety, who presents emergency department with complaints of right 3rd digit pain, swelling, redness since this morning. Patient states that yesterday she thought that she had a splinter in her right finger and use a knife to try to remove said splinter. She states that she was then seen by [facility] at the homeless detention who instructed her to report to the emergency room if her pain, swelling gets worse. On arrival, vital signs within normal limits other than slight tachycardia at 110. Patient was also seen and evaluated by Dr. Mireles. Recommends x-ray, labs, and orthopedic consultation. Patient will likely need to admitted secondary to appearance of finger, with lymphangitic spread. Differential diagnoses include cellulitis, lymphangitis, flexor tenosynovitis, foreign body, abscess. Patient tachycardic upon arrival however during my assessment, she was regular rate and rhythm at approximately 80 beats per minute. Tachycardia was likely due to pain during initial triage. Plan: Labs, x-ray, orthopedic referral, plus or minus admission Differential Diagnosis Differential Diagnoses: The differential diagnosis associated with the presentation includes See above Admission/Observation Consideration of admission/observation: Escalation of care including admission/observation considered Lab Data MDM Lab Attestation statement: I reviewed the patient's lab results. Leukocytosis at 18.7, with left shift, chemistry within normal ranges. 04/19/24 08:57 04/19/24 08:57 Labs: Lab Results 04/19/24 Range/Units 08:57 WBC 18.7 H (4.8-10.8) X10*3/uL RBC 4.42 (4.20-5.50) X10*6/uL Hgb 13.9 (12.0-16.0) g/dl Hct 40.5 (37.0-47.0) % MCV 91.6 (80.0-98.0) fL MCH 31.4 (27.0-33.0) pg MCHC 34.3 (31.0-35.0) g/dl RDW 14.0 (11.0-16.0) % Plt Count 356 (160-400) X10*3/uL MPV 9.1 L (9.4-12.3) fL Immature Gran % (Auto) 0.6 H (0.0-0.4) % Neut % (Auto) 80.9 H (45-73) % Lymph % (Auto) 13.1 L (20-40) % [place] % (Auto) 5.1 (2-11) % Eos % (Auto) 0.1 (0-4) % Baso % (Auto) 0.2 (0-2) % Lymph # (Auto) 2.4 (1.2-4.9) X10*3/uL [place] # (Auto) 1.0 (0.1-1.2) X10*3/uL Eos # (Auto) 0.0 (0.0-0.4) X10*3/uL Baso # (Auto) 0.0 (0.0-0.2) X10*3/uL Abs Immat Gran (auto) 0.12 H (0.00-0.03) X10*3/uL Absolute Neuts (auto) 15.1 H (2.0-8.3) x10*3/uL Absolute Nucleated RBC 0.000 (0.0-0.012) X10*3/uL Nucleated RBC % (auto) 0.0 (0.0-0.2) /100WBC Sodium 142 (135-145) mmol/L Potassium 3.5 (3.3-5.1) mmol/L Chloride 110 H (96-108) mmol/L Carbon Dioxide 21 L (22-29) mmol/L Anion Gap 15 (12-20) BUN 9 (9-16) mg/dL Creatinine 0.60 (0.5-1.4) mg/dL Estim Creat Clear Calc 101.4 Estimated GFR > 60 Random Glucose 102 (60-115) mg/dL Calcium 9.9 D (8.4-10.2) mg/dL Total Bilirubin 0.3 (0.0-1.0) mg/dL AST 14 (5-31) U/L ALT 21 (0-31) U/L Alkaline Phosphatase 75 (39-117) U/L Total Protein 6.9 (6.5-8.0) g/dL Albumin 4.3 (3.5-5.0) g/dL Radiology Impression Discussion of test interpretation with radiology: I have reviewed the radiologist's reading. Radiologist Impression: XR/XR finger RT min 2V IMPRESSION: Findings as above. Electronically signed by: Kd Madrid MD 04/19/2024 10:01 AM EDT RP Dictated By: Kd Madrid Signed By: <Electronically signed Procedures Procedure Narrative Procedure Narrative: Procedure performed with Dr. Mireles. Area was cleansed with Betadine, linear incision made with 11 blade scalpel, serosanguineous fluid expressed from region. Patient tolerated procedure well. Wound was dressed with bandage Critical Care Time Critical Care Time Critical Care Time: Yes Total Critical Care Time: 35 Attestation: I have personally provided critical care time exclusive of time spent on separately billable procedures. Time includes review of lab data, radiology results, discussion with consultants, and monitoring for potential decompensation. Intervention performed as documented. Discharge Plan Discharge Clinical Impression: Cellulitis of middle finger Qualifiers: Laterality: right Qualified Code(s): L03.011 - Cellulitis of right finger Patient Disposition: Admitted As Inpatient
[2024-04-19 09:05] LABS: MANUAL DIFF FLAG NO
[2024-04-19 09:08] LABS: Basophils Percent Auto 0.2 % (0-2); Eosinophils Percent Auto 0.1 % (0-4); Hematocrit 40.5 % (37.0-47.0); Hemoglobin 13.9 g/dl (12.0-16.0); Imm Gran Abs Auto 0.12 X10*3/uL (0.00-0.03); Imm Gran Pct Auto 0.6 % (0.0-0.4); Lymphocytes Absolute Auto 2.4 X10*3/uL (1.2-4.9); Lymphocytes Percent Auto 13.1 % (20-40); Mean Corpuscular HGB Conc 34.3 g/dl (31.0-35.0); Mean Corpuscular Hemoglobin 31.4 pg (27.0-33.0); Mean Corpuscular Volume 91.6 fL (80.0-98.0); Mean Platelet Volume 9.1 fL (9.4-12.3); Monocytes Percent Auto 5.1 % (2-11); Neutrophils Absolute Auto 15.1 x10*3/uL (2.0-8.3); Neutrophils Percent Auto 80.9 % (45-73); Platelet Count 356 X10*3/uL (160-400); Red Blood Count 4.42 X10*6/uL (4.20-5.50); White Blood Count 18.7 X10*3/uL (4.8-10.8)
[2024-04-19 09:23] LABS: Alanine Aminotransferase 21 U/L (0-31); Albumin Level 4.3 g/dL (3.5-5.0); Alkaline Phosphatase 75 U/L (39-117); Anion Gap 15 (12-20); Aspartate Amino Transferase 14 U/L (5-31); Bilirubin Total 0.3 mg/dL (0.0-1.0); Blood Urea Nitrogen 9 mg/dL (9-16); Calcium 9.9 mg/dL (8.4-10.2); Carbon Dioxide 21 mmol/L (22-29); Chloride 110 mmol/L (96-108); Creatinine Clr Calc Pharmacy 101.4; Estimated Glomerular Filt Rate > 60; Glucose Random 102 mg/dL (60-115); Potassium 3.5 mmol/L (3.3-5.1); Sodium 142 mmol/L (135-145); Total Protein 6.9 g/dL (6.5-8.0)
[2024-04-19] MEDS: 0.9 % Sodium Chloride 1,000 ML 999 ML IV (09:43)
[2024-04-19] MEDS: vancomycin HCL 1,000 MG in 0.9 % Sodium Chloride 250 ML 270 MG IV ×2 (09:43→21:30)
--- NOTE | 2024-04-19 09:44 | PM.CNOR ---
History of Present Illness HPI Consult date: 04/19/24 Chief complaint: Infected finger Narrative: 49 yo female presents to the ED with right middle finger pain and swelling. She states she noticed some pain and swelling in the finger yesterday, she thought she had a splinter and tried to get it out with a knife. Overnight she developed worsening pain and swelling which prompted her to come to the ED. While in the ED, it was noted she had lymphangitis. This prompted admission to the medical service and orthopedics was consulted for further recommendations. Review of Systems Review of Systems: Yes all other systems are reviewed and are negative [facility] Past Medical History Medical History Wrist pain, left Ankle pain, left Obesity Restless leg syndrome Migraine Anxiety Fibromyalgia Family History Family History Father CVD (cardiovascular disease) Myocardial infarction Mother Chronic mental illness Dementia Myocardial infarction, Onset Age: 40 Seizure Sister In good health Son In good health Maternal Aunt Breast CA Paternal Aunt Breast CA Other Mental health disorder Surgical History Surgical History H/O rectal polypectomy History of surgery History of hernia repair History of wisdom tooth extraction History of tonsillectomy History of umbilical hernia repair H/O LEEP History of colectomy Social History Social History Housing: Apartment Alcohol intake: current Alcohol intake frequency: does not drink Patient Tobacco Use Status: Current everyday Tobacco user Tobacco use type: Cigarette Years Smoked: 15 e-Cigarette/Vaping Use: Never Used Second Hand Smoke Exposure: Yes Substance Use Type: Marijuana Advance Directives: Yes Advance Directives on File: Yes Advance Directives Date on File: 09/17/22 Do you have a plan to hurt others: No Plan service: No Current occupational status: disabled Cognitive needs: No Hearing needs: No Vision needs: No Meds Allergies Allergy/AdvReac Type Severity Reaction Status Date / Time topiramate [From TOPAMAX] Allergy Mild NAUSEA & Verified 04/19/24 07:48 VOMITING divalproex sodium AdvReac Unknown NAUSEA & Verified 04/19/24 07:48 [From DEPAKOTE] VOMITING Active Medications: Current Medications Sodium Chloride (Ns) 1,000 mls @ 999 mls/hr IV .Q1H1M ONE Stop: 04/19/24 10:28 Last Admin: 04/19/24 09:43 Dose: 999 mls/hr Vancomycin HCl 1,000 mg/ (Sodium Chloride) 270 mls @ 270 mls/hr IV ONCE ONE Stop: 04/19/24 10:44 Last Admin: 04/19/24 09:43 Dose: 270 mls/hr Home Medications ?Medication ?Instructions ?Recorded ?Confirmed ?Last Taken ?Type butalbital 50 mg-acetaminophen 325 1 cap PO Q6H PRN Pain 02/26/23 02/17/24 Unknown History mg-caffeine 40 mg-codeine 30 mg cap paroxetine HCl 20 mg tablet 20 mg PO DAILY 02/26/23 02/17/24 Unknown History diclofenac sodium 75 mg 75 mg PO BID 02/17/24 02/17/24 Unknown History tablet,delayed release valacyclovir 500 mg tablet 500 mg PO DAILY 02/17/24 02/17/24 Unknown History Physical Exam Vital Signs: Vital Signs: Last Vital Signs Temp 98.4 F 04/19/24 07:46 Pulse 110 H 04/19/24 07:46 Resp 18 04/19/24 07:46 BP 120/73 04/19/24 07:46 Pulse Ox 98 04/19/24 07:46 O2 Del Method Room Air 04/19/24 07:46 BMI result Body Mass Index 27.4 Const: General: cooperative, healthy appearing, comfortable and no acute distress Extrem: Other: Right ring finger redness with swelling and tenderness over the dorsum of the finger. Minimal tenderness over the flexor tendons. She is able to extend, she can flex mcp to 90 and pip to 90 and dip 45. No pain over the deep web spaces of the right hand. No pain with axial loading of the ring ringer. NVI. Results Labs 04/19/24 08:57 04/19/24 08:57 Labs: Abnormal lab results 04/19/24 Range/Units 08:57 WBC 18.7 H (4.8-10.8) X10*3/uL MPV 9.1 L (9.4-12.3) fL Immature Gran % (Auto) 0.6 H (0.0-0.4) % Neut % (Auto) 80.9 H (45-73) % Lymph % (Auto) 13.1 L (20-40) % Abs Immat Gran (auto) 0.12 H (0.00-0.03) X10*3/uL Absolute Neuts (auto) 15.1 H (2.0-8.3) x10*3/uL Chloride 110 H (96-108) mmol/L Carbon Dioxide 21 L (22-29) mmol/L H & H 04/19/24 Range/Units 08:57 Hgb 13.9 (12.0-16.0) g/dl Hct 40.5 (37.0-47.0) % All other labs normal. Diagnostic results Wrist/Hand x-ray: image reviewed (Right hand xray no evidence of fracture or foreign body ) Assessment and Plan (1) Cellulitis of middle finger: Qualifiers: Laterality: right Qualified Code(s): L03.011 - Cellulitis of right finger Status: Acute Plan Right middle finger cellulitis with lymphangitis -admission to medical for iv abx -encouraged the patient to work on ROM / PROM and AROM -warm water soaks 20 mins x a day Will continue to follow to determine need for surgical intervention Procedures Date of Service Date of Service: 04/19/24
[2024-04-19] MEDS: Ketorolac Tromethamine 30 MG/ML VIAL IVPUSH (10:02)
[2024-04-19 11:09] VITALS: BP 141/75; PULSE 77; RESP 16; TEMP 36.6; O2SAT 100
--- NOTE | 2024-04-19 11:10 | P.HPHOSP_ITS ---
History of Present Illness Date of Service: 04/19/24 Attending physician on admission: Torres Yousif Chief Complaint: Finger infection 49 y/o F with pmhx hyperlipidemia, migraines and anxiety and depression, who presents emergency department with complaints of right 3rd finger pain and swelling since last night. 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 She states that [facility] by a nurse yesterday and was told that if it becomes any more painful or swollen to seek emergent care. She states that she awoke this morning in her right finger was more swollen, red and now she is having difficulty with movement of her finger. She denies any fevers or chills. Denies taking any medications prior to arrival. No history of diabetes. No hx of IVDA. She states that her last tetanus shot was 1-2 years ago. No other complaints or concerns at this time. labs,imaging reviewed: wbc 18.7 , tachycardia lactc acid normal hand xray-Examination demonstrates soft tissue swelling of the right third digit. There is a possible soft tissue defect at the radial aspect of the third DIP joint. No radiopaque foreign body is identified. Review of Systems 2 Review of Systems: Yes all other systems are reviewed and are negative [facility] Medical History Wrist pain, left Ankle pain, left Obesity Restless leg syndrome Migraine Anxiety Fibromyalgia Family History Father CVD (cardiovascular disease) Myocardial infarction Mother Chronic mental illness Dementia Myocardial infarction, Onset Age: 40 Seizure Sister In good health Son In good health Maternal Aunt Breast CA Paternal Aunt Breast CA Other Mental health disorder Surgical History H/O rectal polypectomy History of surgery History of hernia repair History of wisdom tooth extraction History of tonsillectomy History of umbilical hernia repair H/O LEEP History of colectomy Social History Housing: Apartment Alcohol intake: current Alcohol intake frequency: does not drink Patient Tobacco Use Status: Current everyday Tobacco user Tobacco use type: Cigarette Years Smoked: 15 e-Cigarette/Vaping Use: Never Used Second Hand Smoke Exposure: Yes Substance Use Type: Marijuana Advance Directives: Yes Advance Directives on File: Yes Advance Directives Date on File: 09/17/22 Do you have a plan to hurt others: No Plan service: No Current occupational status: disabled Cognitive needs: No Hearing needs: No Vision needs: No Meds Allergies Allergy/AdvReac Type Severity Reaction Status Date / Time topiramate [From TOPAMAX] Allergy Mild NAUSEA & Verified 04/19/24 07:48 VOMITING divalproex sodium AdvReac Unknown NAUSEA & Verified 04/19/24 07:48 [From DEPAKOTE] VOMITING Home Medications ?Medication ?Instructions ?Recorded ?Confirmed ?Last Taken ?Type butalbital 50 mg-acetaminophen 325 1 cap PO Q6H PRN Headaches 02/26/23 04/19/24 04/18/24 History mg-caffeine 40 mg-codeine 30 mg cap paroxetine HCl 20 mg tablet 20 mg PO DAILY PRN Mood 02/26/23 04/19/24 Unknown History diclofenac sodium 75 mg 75 mg PO BID 02/17/24 04/19/24 04/18/24 History tablet,delayed release valacyclovir 500 mg tablet 500 mg PO DAILY 02/17/24 04/19/24 04/18/24 History cyclobenzaprine 10 mg tablet 10 mg PO BID PRN muscle spasm 04/19/24 04/19/24 04/18/24 History fluticasone propionate 50 1 spray intranasal BID 04/19/24 04/19/24 04/18/24 History mcg/actuation nasal spray,suspension multivitamin 1 tab PO DAILY 04/19/24 04/19/24 04/18/24 History prednisone 20 mg tablet See Taper PO DAILY 04/19/24 04/19/24 04/18/24 History Physical Exam 2 Vital Signs and Narrative: Vital Signs: Last Vital Signs Temp 97.9 F 04/19/24 11:09 Pulse 77 04/19/24 11:09 Resp 16 04/19/24 11:09 BP 141/75 H 04/19/24 11:09 Pulse Ox 100 04/19/24 11:09 O2 Del Method Room Air 04/19/24 11:09 BMI result Body Mass Index 27.4 Appearance: Alert.? Oriented X3.? not in distress.? Eyes: Pupils equal, round and reactive to light.? Sclera nonicteric.? ENT: Pharynx normal.? Moist mucous membranes. cvs: rrr, [id number] , no murmur res: clear to auscultation ,no rhonchii or wheezing abd: no rebound or guarding ,nt, bs present. ext pulses present , no cyanosis .3rd digit, is edematous and erythematous, with decreased range of motion, with tenderness to palpation. With erythema edema and increased warmth along the MCP. neuro: axo3 , nonfocal. Results Labs 04/19/24 08:57 04/19/24 08:57 Labs: Laboratory Results - last 24 hr 04/19/24 08:57 MCV 91.6 MCH 31.4 MCHC 34.3 RDW 14.0 Plt Count 356 MPV 9.1 L Immature Gran % (Auto) 0.6 H Neut % (Auto) 80.9 H Lymph % (Auto) 13.1 L Dawson % (Auto) 5.1 Eos % (Auto) 0.1 Baso % (Auto) 0.2 Lymph # (Auto) 2.4 Dawson # (Auto) 1.0 Eos # (Auto) 0.0 Baso # (Auto) 0.0 Abs Immat Gran (auto) 0.12 H Absolute Neuts (auto) 15.1 H Absolute Nucleated RBC 0.000 Nucleated RBC % (auto) 0.0 Anion Gap 15 Estim Creat Clear Calc 101.4 Estimated GFR > 60 Random Glucose 102 Calcium 9.9 D Total Bilirubin 0.3 AST 14 ALT 21 Alkaline Phosphatase 75 Total Protein 6.9 Albumin 4.3 Imaging Radiologist's Impressions: Impressions Finger X-Ray 04/19/24 08:15 IMPRESSION: Findings as above. Electronically signed by: Kd Madrid MD 04/19/2024 10:01 AM EDT RP Assessment and Plan (1) Cellulitis of middle finger: Qualifiers: Laterality: right Qualified Code(s): L03.011 - Cellulitis of right finger Status: Acute Plan 49 y/o F with pmhx hyperlipidemia, migraines and anxiety and depression, who presents emergency department with complaints of right 3rd finger pain and swelling since last night. Patient states that yesterday she thought that she had a splinter in her right 3rd digit. Sepsis secondary to Cellulitis of right middle finger, lymphangitis Lactic acid normal, blood cultures sent, has tachycardia and elevated WBC Continue vancomycin added clinda Id evaluation, orthopedic evaluation Migraine and anxiety/depression: Continue home medications Patient will benefit from 2 midnight stay considering has sepsis secondary to cellulitis of the right hand-need IV antibiotics, possible surgical intervention if deteriorate, id evaluation. Above management discussed with the patient detail length she understand and agreement with the above plan, time spent 70 minute. Patient full code. Quality Stroke Does the patient have a stroke diagnosis?: No VTE Prior VTE?: No VTE Risk Level:: Medical - moderate - high VTE Device Contraindication: N/A - Device Ordered VTE Drug Contraindication: N/A - Med Ordered
--- OUTSIDE RECORDS SUMMARY | 2024-04-19 11:18 | XMS_ITS | Continuity of Care Document ---
Author Organization [facility] Address [address] [place] [id number]- Care Team Providers Care Senior Business Development Manager Name Role Phone Dev OSMAN, Vidal Nguyen Primary Care Physician Encounter [facility] [place] [place] Date(s): 12/31/21 - 01/30/22 [facility] [address] [place] [id number]- Allergies, Adverse Reactions, Alerts Substance Reaction Severity [...]
--- OUTSIDE RECORDS SUMMARY | 2024-04-19 11:19 | XMS_ITS | Continuity of Care Document ---
Author Organization [facility] Address [address] [place] [address] [address] [place] [address]- Care Team Providers Care Weight Inspector Name Role Phone Dev OSMAN, Vidal Nguyen Primary Care Physician Encounter [facility] [place] Date(s): 02/18/22 - 03/20/[address] [place] [address]- Allergies, Adverse Reactions, Alerts Substance Reaction Severity [...] Team Personnel Name: Vidal Méndez MD Address: [address] [place] [id number]
[2024-04-19] MEDS: Morphine Sulfate 4 MG/ML CARTRIDGE IVPUSH (11:25)
--- NOTE | 2024-04-19 11:51 | PHA.MEDREC ---
Addendum entered by Ana Stephen 04/19/24 13:11: Called [facility] to get Prednisone 20mg taper and they confirmed she is taking 3 tabs for 2 days 2 tabs for 2 days and 1 tab for 2 days. Addendum entered by Conchis Barrios RP 04/19/24 12:44: Patient is on prednisone taper. 15 tabs over 6 days Original Note: Pharmacy Consult ? Medication Reconciliation Pharmacy has completed the medication reconciliation. Confirmed medications with patient. Patient states they are no longer taking the Amoxicillin-Potassium regimen and finished that a while ago and states she is now taking Prednisone 20mg tablet and states she maybe started that 2 days ago and has about 5 days left of that regimen. She taking Cyclobenzaprine 10mg 1 tablet in the morning and 1 tablet at night for muscle spasms. She states she is taking Paroxetine HCL 20mg still as needed for her mood but has not had to take it for a bit. She confirmed she took Butalbital 50mg-Acetaminophen 325mg-Caffeine 4 mg-Codeine 30mg cap, Cyclobenzaprine 10mg, Diclofenac Sodium, Gabapentin 300mg, Iburofen 800mg, Valcyclovir 500mg, Prednisone 20 and a Multivitamin tab yesterday. She states she fills all her medications at [facility] in [place] on [facility]
--- NOTE | 2024-04-19 11:55 | PHA.PROG ---
Admission Date/Time: April 19, 2024 11:12 Indication: skin Weight in k.039 kg Adjusted body weight in Kg: [place] body weight in Kg: Obesity Dosing Indication % IBW: Serum Creatinine - Last 168 Hours 04/19/24 08:57 Creatinine 0.60 Estimated CrCl and GFR - Last 168 Hours 04/19/24 08:57 Estim Creat Clear Calc 101.4 Estimated GFR > 60 Vancomycin Loading Dose: 1000mg x1 + 500mg x 1 Current Vancomycin Dosing Regimen: 1000mg Q12H Vancomycin Monitoring using AUC goal of 400 - 600 range with trough as surrogate marker: 442mg/L Date and Time for next Vancomycin Level to be drawn: 04/20 @1999 Pharmacist Comments on Vancomycin Plan: Patient got loading dose in two parts; predicted trough of 12.8mg/L Vancomycin dosing will take advantage of [employer] as a clinical decision support tool that uses Bayesian modeling to calculate individual patient's pharmacokinetic parameters and forecast the patient's drug concentration time course with the target goal AUC 24 range of 400 - 600 mg/L/hr.
[2024-04-19] MEDS: cefEPime HCl 2 GM in 0.9 % Sodium Chloride 50 ML IV (11:59)
[2024-04-19] MEDS: guaiFENesin 200 MG/10 ML 10 ML LIQUID PO ×2 (11:59→20:19)
[2024-04-19] MEDS: Loratadine 10 MG TABLET PO (11:59)
[2024-04-19 12:05] LABS: Amphetamine Screen Urine Not Detected (Not Detect); Barbiturates, Urine POSITIVE (Not Detect); Benzodiazepines Screen Urine Not Detected (Not Detect); Buprenorphine Scr Not Detected (Not Detect); Cannabinoid Screen Urine Not Detected (Not Detect); Cocaine Screen Urine Not Detected (Not Detect); Fentanyl, urine Not Detected (Not Detect); Methadone Screen, Urine Not Detected (Not Detect); Opiate Screen Urine POSITIVE (Not Detect); Oxycodone Screen Urine Not Detected (Not Detect); Phencyclidine Screen Urine Not Detected (Not Detect)
[2024-04-19] MEDS: vancomycin HCL 500 MG in 0.9 % Sodium Chloride 100 ML 110 MG IV (12:42)
[2024-04-19 13:47] LABS: Adenovirus PCR Not Detected (Not Detect.); Bordetella parapertussis PCR Not Detected (Not Detect.); Bordetella pertussis PCR Not Detected (Not Detect.); Chlamydia pneumoniae PCR Not Detected (Not Detect.); Coronavirus 229E PCR Not Detected (Not Detect.); Coronavirus HKU1 PCR Not Detected (Not Detect.); Coronavirus NL63 PCR Not Detected (Not Detect.); Coronavirus OC43 PCR Not Detected (Not Detect.); Human metapneumovirus PCR Not Detected (Not Detect.); Influenza A PCR Not Detected (Not Detect.); Influenza B PCR Not Detected (Not Detect.); Mycoplasma pneumoniae PCR Not Detected (Not Detect.); Parainfluenza 1 PCR Not Detected (Not Detect.); Parainfluenza 2 PCR Not Detected (Not Detect.); Parainfluenza 3 PCR Not Detected (Not Detect.); Parainfluenza 4 PCR Not Detected (Not Detect.); RSV PCR Not Detected (Not Detect.); Rhino/Enterovirus PCR Detected (Not Detect.)
[2024-04-19 14:08] LABS: SARS-CoV-2 PCR Not Detected (Not Detect.)
[2024-04-19] MEDS: Clindamycin Phosphate/D5W 600 MG/50 ML PIGGYBACK 100 MG IV ×2 (16:25→23:06)
[2024-04-19 16:26] VITALS: BP 140/67; PULSE 93; RESP 16; TEMP 37.3; O2SAT 96
[2024-04-19] MEDS: Acetaminophen 325 MG TABLET 650 MG PO (20:19)
[2024-04-19 20:29] VITALS: BP 137/73; PULSE 91; RESP 16; TEMP 37.1; O2SAT 92
--- NOTE | 2024-04-19 20:35 | PC.NURSE ---
Patient reports 5/10 pain to right finger. patient only has tylenol for pain management available in [facility] at this time. Pt agreed to take despite 5/10 pain and RN will page MD to notify and update pain management care plan and parameters.
[2024-04-19] MEDS: Gabapentin 300 MG CAPSULE PO (21:32)
[2024-04-19] MEDS: Cyclobenzaprine HCl 10 MG TABLET PO (21:42)
[2024-04-19] MEDS: PARoxetine HCL 20 MG TABLET PO (22:24)
[2024-04-19] MEDS: Diclofenac Sodium Delayed Rel 75 MG TABLET.DR PO (22:25)
--- NOTE | 2024-04-19 22:46 | PC.NURSE ---
RN noted Vanco abx infusion to be infiltrating into pts left forearm IV. Patient reports tenderness, and some swelling, and erythema to site. Pharmacy called, charge notified. Instructed by pharmacy to use warm compress to site and IV d/c. dsd applied. will monitor closely.
[2024-04-20] VITALS (7 sets, daily range): BP systolic 118–139; BP diastolic 53–66; PULSE 77–89; RESP 16–22; TEMP 36.1–37.1; O2SAT 93–98
[2024-04-20] MEDS: Melatonin 3 MG TABLET 6 MG PO (00:09)
[2024-04-20] MEDS: oxyCODONE HCl Immed Release 5 MG TABLET PO ×4 (00:10→14:33)
[2024-04-20] MEDS: 0.9 % Sodium Chloride Flush 3 ML SYRINGE IVFLUSH ×3 (00:21→20:09)
[2024-04-20] MEDS: Clindamycin Phosphate/D5W 600 MG/50 ML PIGGYBACK 100 MG IV ×4 (05:28→21:17)
[2024-04-20] MEDS: guaiFENesin 200 MG/10 ML 10 ML LIQUID PO ×3 (05:28→17:26)
--- NOTE | 2024-04-20 05:40 | PC.NURSE ---
Pt c/o 8 pain in hand, medicated with PRN oxycodone. Pt up and ambulating to bathroom
[2024-04-20 06:54] LABS: Creatinine Clr Calc Pharmacy 103.1; Estimated Glomerular Filt Rate > 60
--- NOTE | 2024-04-20 07:21 | PC.NURSE ---
general surgery being completed at this time.
--- NOTE | 2024-04-20 07:33 | P.PNOP_ITS ---
Subjective Subjective Date of Service: 04/20/24 Interval history: 49 Year old female admitted to the hospital for right middle finger cellulitis Patient reports that her pain has improved since yesterday, but that she does still experience significant discomfort when she is off of pain medication Patient does also report that the redness and swelling have improved, but are still present Finger is held in extension, patient reports pain with flexion, however this has improved No active drainage at this time, blister area was lanced in the ED yesterday Patient reports normal sensation to tip of the right middle finger No other acute complaints or concerns this time Physical Exam Vital Signs: Vital Signs: Last Vital Signs Temp 98.4 F 04/20/24 04:45 Pulse 77 04/20/24 04:45 Resp 16 04/20/24 04:45 BP 122/53 L 04/20/24 04:45 Pulse Ox 97 04/20/24 04:45 O2 Del Method Room Air 04/20/24 04:45 BMI result Body Mass Index 27.4 Extrem: Other: Patient is alert, oriented, and in no acute distress. Neuro: Normal sensation of the tips of all digits of the right hand at this time Vascular: Cap refill brisk Pain: Patient does report tenderness to palpation circumferentially of the right middle finger, moving from the PIP joint distally Patient reports no tenderness to palpation of the flexor tendon over the proxima l phalanx Patient is able to extend all digits of the right hand fully without difficulty With encouragement, patient is able to get close to making a closed fist, but does experience discomfort when doing so ROM: Patient is able to extend all digits of the right hand fully without difficulty With encouragement, patient is able to get close to making a closed fist with the right middle finger, but experiences significant discomfort when doing so Skin: Open laceration noted on the distal dorsal and radial aspect of the right middle finger, particularly at the level of the DIP joint No active drainage at this time No evidence of purulence General: Rvyk-wr-wufkufmf erythema noted of the right middle finger, improved from yesterday Wpuu-du-[id number] edema right middle finger also noted No ecchymosis Psych: Appears grossly normal Affect normal Attitude cooperative Procedures Date of Service Date of Service: 04/20/24 Progress Note: A&P Assessment and plan (1) Cellulitis of middle finger: Status: Acute Plan 1. Cellulitis of right middle finger Patient was educated about this condition Patient is educated about the typical recovery course At this time, it was felt that the patient does not require any acute operative intervention for the infection of the right middle finger, as there is no focal area of purulence and index of suspicion for true flexor tenosynovitis remains fairly low Patient will remain admitted to the hospital for continued IV antibiotics, as these appear to be improving her condition dramatically NPO orders lifted for today We will continue with close monitoring for any potential future need for operative intervention Time Spent With Patient Time: Total time managing care of this patient today ____ minutes. Quality Stroke Does the patient have a stroke diagnosis?: No VTE Prior VTE?: No VTE Risk Level:: Medical - moderate - high VTE Device Contraindication: N/A - Device Ordered VTE Drug Contraindication: N/A - Med Ordered
[2024-04-20] MEDS: predniSONE 20 MG TABLET 40 MG PO (08:28)
[2024-04-20] MEDS: Gabapentin 300 MG CAPSULE PO ×2 (08:28→20:08)
[2024-04-20] MEDS: Multivitamin TABLET 1 TAB PO (08:28)
[2024-04-20] MEDS: Loratadine 10 MG TABLET PO (08:28)
[2024-04-20] MEDS: Fluticasone Propionate Nasal 16 GM SPRAY 1 SPRAY NOSTRIL-B (08:29)
[2024-04-20] MEDS: valACYclovir HCL 500 MG TABLET PO (08:29)
[2024-04-20] MEDS: Diclofenac Sodium Delayed Rel 75 MG TABLET.DR PO ×2 (09:29→20:08)
[2024-04-20] MEDS: vancomycin HCL 1,000 MG in 0.9 % Sodium Chloride 250 ML 270 MG IV ×2 (09:55→20:10)
--- NOTE | 2024-04-20 10:05 | PC.NURSE ---
pt verbalizing increase in pain at this time - prn medication utilized. effectiveness pending. pt otherwise has no complaints. continues to wait for bed assignment at this time. resting comfortably w/ the lights dimmed. no sob/wob noted. respirations even/unlabored. plan of car ongoing. call pillai placed within reach.
--- NOTE | 2024-04-20 10:48 | MHC.CM.PN ---
CM met with Patient at bedside, in the ED and addressed IMM verbally with her (Patient was unable to sign r/t injured (R) hand);original was given to Patient and a copy will be placed on the chart. Patient is functionally independent and she has named her Son/Andrae as her HCP and her Sister as her Alternate. PCP/PA is Rudy Barth.Patient will require assist with transport back to the [facility].
[2024-04-20] MEDS: Cyclobenzaprine HCl 10 MG TABLET PO (14:33)
[2024-04-20] MEDS: Flu Vacc TS2024-25(6mos up)/PF 0.5 ML SYRINGE IM (17:27)
--- NOTE | 2024-04-20 17:34 | W.PM.IDCN ---
History of Present Illness Data of Consult Service Date: 04/20/24 Requesting physician: Torres Yousif Primary Care Provider: Rudy Barth PA-C HPI Reason for consult: right third finger infection She presents with right third finger redness for a day. She says she got a splinter three days ago and tried to jeffy?swollen area with hot knife. She is in homeless correction. Review of Systems Review of Systems: Yes all other systems are reviewed and are negative PMFSH Past Medical History Medical History Wrist pain, left Ankle pain, left Obesity Restless leg syndrome Migraine Anxiety Fibromyalgia Family History Family History Father CVD (cardiovascular disease) Myocardial infarction Mother Chronic mental illness Dementia Myocardial infarction, Onset Age: 40 Seizure Sister In good health Son In good health Maternal Aunt Breast CA Paternal Aunt Breast CA Other Mental health disorder Family history: reviewed and not pertinent Surgical History Surgical History H/O rectal polypectomy History of surgery History of hernia repair History of wisdom tooth extraction History of tonsillectomy History of umbilical hernia repair H/O LEEP History of colectomy Social History Social History Household Members Other:: roommate Housing: Other Housing Other:: lives in correction Do you presently have visiting nurse or other home services: No Alcohol intake: current Alcohol intake frequency: does not drink Patient Tobacco Use Status: Current everyday Tobacco user Tobacco use type: Cigarette Cigarette Packs Per Day: 1 Cigarettes Per Day: 20.0 Years Smoked: 15 e-Cigarette/Vaping Use: Never Used Second Hand Smoke Exposure: Yes Substance Use Type: Marijuana Advance Directives Date on File: 09/17/22 service: No Current occupational status: disabled Cognitive needs: No Hearing needs: No Vision needs: No Meds Allergies Allergy/AdvReac Type Severity Reaction Status Date / Time topiramate [From TOPAMAX] Allergy Mild NAUSEA & Verified 04/19/24 07:48 VOMITING divalproex sodium AdvReac Unknown NAUSEA & Verified 04/19/24 07:48 [From DEPAKOTE] VOMITING Active Medications: Current Medications Acetaminophen (Acetaminophen 325 Mg Tablet) 650 mg PO Q6H PRN PRN Reason: Pain, Mild (Pain Scale 1-3), fever or headache Last Admin: 04/19/24 20:19 Dose: 650 mg Calcium Carbonate (Calcium Carbonate 750 Mg Tab.Chew) 750 mg PO Q4H PRN PRN Reason: Heartburn Cyclobenzaprine HCl (Cyclobenzaprine Hcl 10 Mg Tablet) 10 mg PO BID PRN PRN Reason: muscle spasm Last Admin: 04/20/24 14:33 Dose: 10 mg Diclofenac Sodium (Diclofenac Sodium Delayed Rel 75 Mg Tablet.Dr) 75 mg PO BID PENDING SALE TO [facility] Last Admin: 04/20/24 09:29 Dose: 75 mg Fluticasone Propionate (Fluticasone Propionate Nasal 16 Gm [place]) 1 spray NOSTRIL-B BID PENDING SALE TO [facility] Last Admin: 04/20/24 08:29 Dose: 1 spray Gabapentin (Gabapentin 300 Mg Capsule) 300 mg PO BID PENDING SALE TO [facility] Last Admin: 04/20/24 08:28 Dose: 300 mg Guaifenesin (Guaifenesin 200 Mg/10 Ml 10 Ml Liquid) 10 ml PO Q6H PENDING SALE TO [facility] Last Admin: 04/20/24 17:26 Dose: 10 ml Vancomycin HCl 1,000 mg/ (Sodium Chloride) 270 mls @ 270 mls/hr IV Q12H PENDING SALE TO [facility] Last Infusion: 04/20/24 10:59 Dose: Infused Clindamycin Phosphate (Cleocin) 600 mg in 50 mls @ 100 mls/hr IV Q6H PENDING SALE TO [facility] Last Infusion: 04/20/24 10:07 Dose: Infused Loratadine (Loratadine 10 Mg Tablet) 10 mg PO DAILY PENDING SALE TO [facility] Last Admin: 04/20/24 08:28 Dose: 10 mg Magnesium Hydroxide (Milk Of Magnesia 30 Ml Oral.Susp) 30 ml PO DAILY PRN PRN Reason: Constipation Melatonin (Melatonin 3 Mg Tablet) 6 mg PO BEDTIME PRN PRN Reason: Insomnia Last Admin: 04/20/24 00:09 Dose: 6 mg Multivitamins/Vitamin C (Multivitamin Tablet) 1 tab PO DAILY PENDING SALE TO [facility] Last Admin: 04/20/24 08:28 Dose: 1 tab Pt Owned (Butalbital -Bpgerohfls-Gtg-Zko 15-106-21-30 Mg Capsule) 1 cap PO Q6H PRN PRN Reason: Headaches Oxycodone HCl (Oxycodone Hcl Immed Release 5 Mg Tablet) 5 mg PO Q4H PRN PRN Reason: Pain, Severe (Pain Scale 7-10) Last Admin: 04/20/24 14:33 Dose: 5 mg Paroxetine HCl (Paroxetine Hcl 20 Mg Tablet) 20 mg PO DAILY PRN PRN Reason: Mood Last Admin: 04/19/24 22:24 Dose: 20 mg Pharmacy Consult (Consult Rx Vancomycin Dosing) 1 each MISCELLANE DAILY PRN PRN Reason: Consult order Prednisone (Prednisone 20 Mg Tablet) 60 mg PO DAILY PENDING SALE TO [facility]; Taper Stop: 04/26/24 08:59 Last Admin: 04/20/24 08:28 Dose: 60 mg Sodium Chloride (0.9 % Sodium Chloride Flush 3 Ml Syringe) 3 ml IVFLUSH QSHIFT PENDING SALE TO [facility] Last Admin: 04/20/24 15:21 Dose: 3 ml Valacyclovir HCl (Valacyclovir Hcl 500 Mg Tablet) 500 mg PO DAILY PENDING SALE TO [facility] Last Admin: 04/20/24 08:29 Dose: 500 mg Home Medications ?Medication ?Instructions ?Recorded ?Confirmed ?Last Taken ?Type butalbital 50 mg-acetaminophen 325 1 cap PO Q6H PRN Headaches 02/26/23 04/19/24 04/18/24 History mg-caffeine 40 mg-codeine 30 mg cap paroxetine HCl 20 mg tablet 20 mg PO DAILY PRN Mood 02/26/23 04/19/24 Unknown History diclofenac sodium 75 mg 75 mg PO BID 02/17/24 04/19/24 04/18/24 History tablet,delayed release valacyclovir 500 mg tablet 500 mg PO DAILY 02/17/24 04/19/24 04/18/24 History cyclobenzaprine 10 mg tablet 10 mg PO BID PRN muscle spasm 04/19/24 04/19/24 04/18/24 History fluticasone propionate 50 1 spray intranasal BID 04/19/24 04/19/24 04/18/24 History mcg/actuation nasal spray,suspension multivitamin 1 tab PO DAILY 04/19/24 04/19/24 04/18/24 History prednisone 20 mg tablet See Taper PO DAILY 04/19/24 04/19/24 04/18/24 History Physical Exam Vital Signs: Vital Signs: Last Vital Signs Temp 98.5 F 04/20/24 15:30 Pulse 83 04/20/24 15:30 Resp 18 04/20/24 15:30 BP 119/58 L 04/20/24 15:30 Pulse Ox 93 04/20/24 15:30 O2 Del Method Room Air 04/20/24 15:30 BMI result Body Mass Index 27.4 Const: General: cooperative HEENT: Head: Yes normal to inspection Face and sinus: Yes normal facial exam Mouth: Normal oral and palatal mucosa present Teeth and gingiva: dentition normal Eyes: General: appearance normal, both eyes and all related structures Pupils: Equal, round and reactive pupils present Resp: Effort & Inspection: normal respiratory effort Cardio: Rate: regular rate Rhythm: regular rhythm GI: Palpation (GI): Soft to palpation and nontender : General: Yes no CVA tenderness Back/Spine/Pelvis: Back: no CVA tenderness Skin: General skin exam: no rashes or lesions noted Neuro: General: moves all extremities Cranial nerves: Yes Equal, round and reactive pupils present Extrem: Other: right third finger swollen,redness Psych: Appearance: grossly normal Results Labs 04/19/24 08:57 04/20/24 06:02 Labs: BMP 04/20/24 06:02 Creatinine 0.59 Microbiology Microbiology Results: Microbiology 04/19/24 11:05 Finger Gram Stain - Final 04/19/24 11:05 Finger Routine Culture - Final Streptococcus group c 04/19/24 08:57 Blood - Venous Blood Culture - Preliminary No growth after 24 hours. 04/19/24 08:40 Blood - Venous Blood Culture - Preliminary No growth after 24 hours. Assessment and Plan (1) Cellulitis of middle finger: Qualifiers: Laterality: right Qualified Code(s): L03.011 - Cellulitis of right finger Status: Acute Plan Would continue Vancomycin and Clindamycin Stop Clindamycin tomorrow. When better po Doxycycline 100 mg bid for two weeks.
[2024-04-21 03:37] VITALS: BP 136/63; PULSE 77; RESP 16; TEMP 36.7; O2SAT 97
[2024-04-21] MEDS: vancomycin HCL 1,250 MG in 0.9 % Sodium Chloride 250 ML 166.67 MG IV (03:56)
[2024-04-21] MEDS: Clindamycin Phosphate/D5W 600 MG/50 ML PIGGYBACK 100 MG IV ×3 (05:28→16:15)
[2024-04-21 07:04] LABS: Creatinine Clr Calc Pharmacy 112.6; Estimated Glomerular Filt Rate > 60
[2024-04-21 07:53] VITALS: BP 124/58; PULSE 83; RESP 17; TEMP 36.6; O2SAT 95
[2024-04-21] MEDS: 0.9 % Sodium Chloride Flush 3 ML SYRINGE IVFLUSH ×2 (08:44→20:35)
[2024-04-21] MEDS: valACYclovir HCL 500 MG TABLET PO (08:44)
[2024-04-21] MEDS: predniSONE 20 MG TABLET 40 MG PO (08:44)
[2024-04-21] MEDS: Multivitamin TABLET 1 TAB PO (08:44)
[2024-04-21] MEDS: Diclofenac Sodium Delayed Rel 75 MG TABLET.DR PO ×2 (08:46→20:27)
[2024-04-21] MEDS: oxyCODONE HCl Immed Release 5 MG TABLET PO ×3 (08:48→20:28)
[2024-04-21] MEDS: Gabapentin 300 MG CAPSULE PO ×2 (08:48→20:27)
[2024-04-21] MEDS: Loratadine 10 MG TABLET PO (08:49)
[2024-04-21 08:54] LABS: HIV AB/AG Nonreactive (Nonreactive); HIV Num 1 0.04 S/CO (0.00-0.99)
[2024-04-21 08:58] LABS: ~HepC Num1 0.13 S/CO (0.00-0.79); ~Hepatitis C Antibody Nonreactive (Nonreactive)
[2024-04-21 09:39] LABS: Hemoglobin 12.8 g/dl (12.0-16.0); Mean Corpuscular HGB Conc 33.7 g/dl (31.0-35.0); Mean Corpuscular Hemoglobin 31.7 pg (27.0-33.0); Mean Corpuscular Volume 94.1 fL (80.0-98.0); Mean Platelet Volume 9.3 fL (9.4-12.3); Platelet Count 311 X10*3/uL (160-400); Red Blood Count 4.04 X10*6/uL (4.20-5.50); Red Cell Distribution Width 14.1 % (11.0-16.0); White Blood Count 13.8 X10*3/uL (4.8-10.8)
--- NOTE | 2024-04-21 11:14 | PM.PNORT ---
Subjective Subjective Date of Service: 04/21/24 Interval history: 49 Year old female admitted to the hospital for right middle finger cellulitis Patient reports that her pain has improved since yesterday Patient does also report that the redness and swelling have improved, but are still present Finger is held in extension, patient reports mild pain with flexion, however this has improved since yesterday Patient also reports that the range of motion of her right middle finger has improved since yesterday No active drainage at this time, although there is drainage on the dressing when taken down Patient reports normal sensation to tip of the right middle finger No other acute complaints or concerns this time Physical Exam Vital Signs: Vital Signs: Last Vital Signs Temp 97.9 F 04/21/24 07:53 Pulse 83 04/21/24 07:53 Resp 17 04/21/24 07:53 BP 124/58 L 04/21/24 07:53 Pulse Ox 95 04/21/24 07:53 O2 Del Method Room Air 04/21/24 07:53 BMI result Body Mass Index 27.4 Extrem: Other: Patient is alert, oriented, and in no acute distress. Neuro: Normal sensation of the tips of all digits of the right hand at this time Vascular: Cap refill brisk Pain: Patient does report tenderness to palpation circumferentially of the middle phalanx of the right middle finger, improved from yesterday Patient reports no tenderness to palpation of the flexor tendon over the proximal phalanx No pain with axial loading of the right middle finger ROM: Patient is able to extend all digits of the right hand fully without difficulty With encouragement, Patient is able to make a closed fist with the right middle finger at this time with minimal pain Skin: Open laceration noted on the distal dorsal and radial aspect of the right middle finger, particularly at the level of the DIP joint No active drainage at this time No evidence of purulence General: Ceoh-zz-ebuzzylk erythema noted of the right middle finger, improved from yesterday Waya-cd-dyooyajg edema right middle finger also noted No ecchymosis Psych: Appears grossly normal Affect normal Attitude cooperative Procedures Date of Service Date of Service: 04/21/24 Progress Note: A&P Assessment and plan (1) Cellulitis of middle finger: Status: Acute Plan 1. Cellulitis of right middle finger Patient appears to be recovering fairly well from this infection Patient is educated about the typical recovery course Patient was seen in the hospital today with Dr. Rushing, and a collaborative treatment plan was formed: At this time, no acute surgical intervention is indicated, as there is no focal area of purulence or fluctuance and the patient's symptoms appear to be improving with IV antibiotics Index of suspicion for flexor tenosynovitis remains quite low, as she is able to flex and extend the right middle finger with minimal discomfort Patient is advised to start with half-strength peroxide and water soaks once per day to encourage wound healing and drainage of any other possible infectious agents from her wound site Patient was amenable to this plan Daily dressing changes with gauze and Cintia Continue IV antibiotics per Medicine Continue with all other recommendations per Medicine Time Spent With Patient Time: Total time managing care of this patient today ____ minutes. Quality Stroke Does the patient have a stroke diagnosis?: No VTE Prior VTE?: No VTE Risk Level:: Medical - moderate - high VTE Device Contraindication: N/A - Device Ordered VTE Drug Contraindication: N/A - Med Ordered
[2024-04-21] MEDS: CAFFEINE PO ×2 (12:12→18:01)
[2024-04-21] MEDS: CODEINE PO ×2 (12:12→18:01)
[2024-04-21] MEDS: BUTALBITAL PO ×2 (12:12→18:01)
[2024-04-21] MEDS: ACETAMINOPHEN PO ×2 (12:12→18:01)
[2024-04-21] MEDS: Fluticasone Propionate Nasal 16 GM SPRAY 1 SPRAY NOSTRIL-B ×2 (12:13→20:29)
[2024-04-21] MEDS: guaiFENesin 200 MG/10 ML 10 ML LIQUID PO ×2 (12:18→16:48)
--- NOTE | 2024-04-21 12:51 | P.PNIM_ITS ---
Subjective Subjective Date of Service: 04/21/24 Interval History: Finger infection Review of Systems cellulitis seems somewhat improving no fever or chills Physical Exam 2 Vital Signs: Vital Signs: Last Vital Signs Temp 97.9 F 04/21/24 07:53 Pulse 83 04/21/24 07:53 Resp 17 04/21/24 07:53 BP 124/58 L 04/21/24 07:53 Pulse Ox 95 04/21/24 07:53 O2 Del Method Room Air 04/21/24 07:53 BMI result Body Mass Index 27.4 Appearance: Alert.? Oriented X3.? cvs: rrr, [id number] . res: clear to auscultation ,no rhonchii or wheezing abd: no rebound or guarding ,nt, bs present. ext pulses present , no cyanosis ,ext pulses present , no cyanosis .3rd digit, is edematous and erythematous, with decreased range of motion, with tenderness to palpation. neuro: axo3 , nonfocal. Objective Data Active Medications Acetaminophen (Acetaminophen 325 Mg Tablet) 650 mg PO Q6H PRN PRN Reason: Pain, Mild (Pain Scale 1-3), fever or headache Last Admin: 04/19/24 20:19 Dose: 650 mg Documented By: BLAIRE Calcium Carbonate (Calcium Carbonate 750 Mg Tab.Chew) 750 mg PO Q4H PRN PRN Reason: Heartburn Cyclobenzaprine HCl (Cyclobenzaprine Hcl 10 Mg Tablet) 10 mg PO BID PRN PRN Reason: muscle spasm Last Admin: 04/20/24 14:33 Dose: 10 mg Documented By: ROSSY Diclofenac Sodium (Diclofenac Sodium Delayed Rel 75 Mg Tablet.) 75 mg PO BID [facility] Last Admin: 04/21/24 08:46 Dose: 75 mg Documented By: NAPOLEON Fluticasone Propionate (Fluticasone Propionate Nasal 16 Gm [place]) 1 spray NOSTRIL-B BID [facility] Last Admin: 04/21/24 12:13 Dose: 1 spray Documented By: NAPOLEON Gabapentin (Gabapentin 300 Mg Capsule) 300 mg PO BID [facility] Last Admin: 04/21/24 08:48 Dose: 300 mg Documented By: NAPOLEON Guaifenesin (Guaifenesin 200 Mg/10 Ml 10 Ml Liquid) 10 ml PO Q6H [facility] Last Admin: 04/21/24 12:18 Dose: 10 ml Documented By: NAPOLEON Clindamycin Phosphate (Cleocin) 600 mg in 50 mls @ 100 mls/hr IV Q6H [facility] Last Admin: 04/21/24 12:14 Dose: 100 mls/hr Documented By: NAPOLEON Vancomycin HCl 1,250 mg/ (Sodium Chloride) 250 mls @ 166.667 mls/hr IV Q8H [facility] Last Infusion: 04/21/24 05:28 Dose: Infused Documented By: SAUMYA Loratadine (Loratadine 10 Mg Tablet) 10 mg PO DAILY [facility] Last Admin: 04/21/24 08:49 Dose: 10 mg Documented By: NAPOLEON Magnesium Hydroxide (Milk Of Magnesia 30 Ml Oral.Susp) 30 ml PO DAILY PRN PRN Reason: Constipation Melatonin (Melatonin 3 Mg Tablet) 6 mg PO BEDTIME PRN PRN Reason: Insomnia Last Admin: 04/20/24 00:09 Dose: 6 mg Documented By: KRISTY Multivitamins/Vitamin C (Multivitamin Tablet) 1 tab PO DAILY [facility] Last Admin: 04/21/24 08:44 Dose: 1 tab Documented By: NAPOLEON Pt Owned (Butalbital -Jwyskuqxim-Bue-Dsm [id number] Mg Capsule) 1 cap PO Q6H PRN PRN Reason: Headaches Last Admin: 04/21/24 12:12 Dose: 1 cap Documented By: NAPOLEON Oxycodone HCl (Oxycodone Hcl Immed Release 5 Mg Tablet) 5 mg PO Q4H PRN PRN Reason: Pain, Severe (Pain Scale 7-10) Last Admin: 04/21/24 08:48 Dose: 5 mg Documented By: NAPOLEON Paroxetine HCl (Paroxetine Hcl 20 Mg Tablet) 20 mg PO DAILY PRN PRN Reason: Mood Last Admin: 04/19/24 22:24 Dose: 20 mg Documented By: BLAIRE Pharmacy Consult (Consult Rx Vancomycin Dosing) 1 each MISCELLANE DAILY PRN PRN Reason: Consult order Prednisone (Prednisone 20 Mg Tablet) 60 mg PO DAILY [facility]; Taper Stop: 04/26/24 08:59 Last Admin: 04/21/24 08:44 Dose: 60 mg Documented By: NAPOLEON Sodium Chloride (0.9 % Sodium Chloride Flush 3 Ml Syringe) 3 ml IVFLUSH QSHIFT [facility] Last Admin: 04/21/24 08:44 Dose: 3 ml Documented By: NAPOLEON Valacyclovir HCl (Valacyclovir Hcl 500 Mg Tablet) 500 mg PO DAILY [facility] Last Admin: 04/21/24 08:44 Dose: 500 mg Documented By: NAPOLEON Labs 04/21/24 09:10 04/21/24 05:38 Labs: Laboratory Results - last 24 hr 04/20/24 04/21/24 04/21/24 20:03 05:38 09:10 MCV 94.1 MCH 31.7 MCHC 33.7 RDW 14.1 Plt Count 311 MPV 9.3 L Absolute Nucleated RBC 0.000 Nucleated RBC % (auto) 0.0 Estim Creat Clear Calc 112.6 Estimated GFR > 60 Random Vancomycin 6.0 L Hepatitis C Ab (EIA) Nonreactive HIV 1&2 Ab/P24 Ag 4thGn Nonreactive Microbiology Microbiology Results: Microbiology 04/19/24 08:57 Blood Culture - Preliminary Blood - Venous No growth after 48 hours. 04/19/24 08:40 Blood Culture - Preliminary Blood - Venous No growth after 48 hours. 04/19/24 11:05 Gram Stain - Final Finger Routine Culture - Final Streptococcus group c Assessment and Plan (1) Cellulitis of middle finger: Status: Acute Assessment and Plan: 49 y/o F with pmhx hyperlipidemia, migraines and anxiety and depression, who presents emergency department with complaints of right 3rd finger pain and swelling since last night. Patient states that yesterday she thought that she had a splinter in her right 3rd digit. Sepsis secondary to Cellulitis of right middle finger, lymphangitis Lactic acid normal, blood cultures sent. Leukocytosis improving and tachycardia improved. Vanco trough 6 yesterday Continue vancomycin and clinda orthopedic evaluation noted: Seen by ortho, continue antibiotics, they will follow-up if patient she need i&D. Migraine and anxiety/depression: Continue home medications ongoing need -considering has sepsis secondary to cellulitis of the right hand- need IV antibiotics, possible surgical intervention if deteriorate, id evaluation. Quality Stroke Does the patient have a stroke diagnosis?: No VTE Prior VTE?: No VTE Risk Level:: Medical - moderate - high VTE Device Contraindication: N/A - Device Ordered VTE Drug Contraindication: N/A - Med Ordered
[2024-04-21] MEDS: vancomycin HCL 1,250 MG in 0.9 % Sodium Chloride 250 ML 166.7 MG IV (14:36)
[2024-04-21 15:08] VITALS: BP 126/60; PULSE 76; RESP 17; TEMP 36.2; O2SAT 94
[2024-04-21] MEDS: Ibuprofen 600 MG TABLET PO (16:15)
[2024-04-21 18:31] LABS: Vancomycin Random 28.8 mcg/mL (15-20)
[2024-04-21 19:38] VITALS: BP 108/51; PULSE 79; RESP 17; TEMP 36.4; O2SAT 94
[2024-04-21] MEDS: Doxycycline Monohydrate 100 MG CAPSULE PO (20:27)
[2024-04-21] MEDS: Lactated Ringers 1,000 ML 100 ML IVCONT (20:28)
[2024-04-21] MEDS: Melatonin 3 MG TABLET 6 MG PO (21:54)
[2024-04-22] MEDS: Lactated Ringers 1,000 ML 100 ML IVCONT (02:41)
[2024-04-22 03:25] VITALS: BP 133/69; PULSE 69; RESP 18; TEMP 36.3; O2SAT 97
[2024-04-22] MEDS: guaiFENesin 200 MG/10 ML 10 ML LIQUID PO ×2 (05:26→12:13)
[2024-04-22] MEDS: oxyCODONE HCl Immed Release 5 MG TABLET PO ×2 (05:27→10:42)
[2024-04-22] MEDS: Doxycycline Monohydrate 100 MG CAPSULE PO (05:27)
[2024-04-22 07:46] VITALS: BP 131/60; PULSE 75; RESP 17; TEMP 36.3; O2SAT 98
[2024-04-22 08:34] LABS: Vancomycin Random 5.9 mcg/mL (15-20)
--- NOTE | 2024-04-22 08:35 | PM.PNORT ---
Subjective Subjective Date of Service: 04/22/24 Interval history: 49 Year old female admitted to the hospital for right middle finger cellulitis Patient reports that her pain has improved since yesterday Patient does also report that the redness and swelling have improved, but are still present Finger is held in extension, patient reports mild pain with flexion, however this has improved since yesterday Patient also reports that the range of motion of her right middle finger has improved since yesterday No active drainage at this time, although there is drainage on the dressing when taken down Patient reports normal sensation to tip of the right middle finger No other acute complaints or concerns this time Physical Exam Vital Signs: Vital Signs: Last Vital Signs Temp 97.3 F 04/22/24 07:46 Pulse 75 04/22/24 07:46 Resp 17 04/22/24 07:46 BP 131/60 04/22/24 07:46 Pulse Ox 98 04/22/24 07:46 O2 Del Method Room Air 04/22/24 07:46 BMI result Body Mass Index 27.4 Extrem: Other: Patient is alert, oriented, and in no acute distress. Neuro: Normal sensation of the tips of all digits of the right hand at this time Vascular: Cap refill brisk Pain: Patient does report tenderness to palpation circumferentially of the middle phalanx of the right middle finger, improved from yesterday Patient reports no tenderness to palpation of the flexor tendon over the proximal phalanx No pain with axial loading of the right middle finger ROM: Patient is able to extend all digits of the right hand fully without difficulty With encouragement, Patient is able to make a closed fist with the right middle finger at this time with minimal pain Skin: Open laceration noted on the distal dorsal and radial aspect of the right middle finger, particularly at the level of the DIP joint No active drainage at this time No evidence of purulence General: Eutr-hm-zotronhq erythema noted of the right middle finger, improved from yesterday Asyn-zu-grzzqlxl edema right middle finger also noted No ecchymosis Psych: Appears grossly normal Affect normal Attitude cooperative Procedures Date of Service Date of Service: 04/22/24 Progress Note: A&P Assessment and plan (1) Cellulitis of middle finger: Status: Acute Plan 1. Cellulitis of right middle finger Patient appears to be recovering fairly well from this infection Patient is educated about the typical recovery course Patient was seen in the hospital today with Dr. Rushing, and a collaborative treatment plan was formed: At this time, no acute surgical intervention is indicated, as there is no focal area of purulence or fluctuance and the patient's symptoms appear to be improving with IV antibiotics Index of suspicion for flexor tenosynovitis remains quite low, as she is able to flex and extend the right middle finger with minimal discomfort Patient is advised to continue with half-strength peroxide and water soaks once per day to encourage wound healing and drainage of any other possible infectious agents from her wound site Patient was amenable to this plan Daily dressing changes with gauze and Cintia Continue IV antibiotics per Medicine Continue with all other recommendations per Medicine Time Spent With Patient Time: Total time managing care of this patient today ____ minutes. Quality Stroke Does the patient have a stroke diagnosis?: No VTE Prior VTE?: No VTE Risk Level:: Medical - moderate - high VTE Device Contraindication: N/A - Device Ordered VTE Drug Contraindication: N/A - Med Ordered
[2024-04-22 08:38] LABS: Anion Gap 11 (12-20); Blood Urea Nitrogen 10 mg/dL (9-16); Calcium 8.5 mg/dL (8.4-10.2); Carbon Dioxide 23 mmol/L (22-29); Chloride 110 mmol/L (96-108); Estimated Glomerular Filt Rate > 60; Glucose Random 77 mg/dL (60-115); Potassium 3.9 mmol/L (3.3-5.1); Sodium 140 mmol/L (135-145)
[2024-04-22] MEDS: Fluticasone Propionate Nasal 16 GM SPRAY 1 SPRAY NOSTRIL-B (08:45)
[2024-04-22] MEDS: Diclofenac Sodium Delayed Rel 75 MG TABLET.DR PO (08:45)
[2024-04-22] MEDS: predniSONE 20 MG TABLET 40 MG PO (08:45)
[2024-04-22] MEDS: Multivitamin TABLET 1 TAB PO (08:45)
[2024-04-22] MEDS: valACYclovir HCL 500 MG TABLET PO (08:46)
[2024-04-22] MEDS: Loratadine 10 MG TABLET PO (08:46)
[2024-04-22] MEDS: Gabapentin 300 MG CAPSULE PO (08:46)
[2024-04-22] MEDS: ACETAMINOPHEN PO (08:56)
[2024-04-22] MEDS: CODEINE PO (08:56)
[2024-04-22] MEDS: BUTALBITAL PO (08:56)
[2024-04-22] MEDS: CAFFEINE PO (08:56)
--- NOTE | 2024-04-22 09:34 | MHC.CM.PN ---
PATIENT IS DC HOME - SELF CARE. IMM 04/20 PREVIOUSLY COMPLETED.
--- NOTE | 2024-04-22 09:38 | MHC.CM.PN ---
PATIENT GIVEN [facility] TRANSPORT PASSES FOR RETURN TO [facility].
--- NOTE | 2024-04-22 10:33 | P.DS_ITS ---
DS: Providers Provider Date of Service: 04/22/24 Date of admission: 04/19/24 11:12 Date of discharge: 04/22/24 Primary care physician: Rudy Barth PA-C Consults: 04/19/24 09:35 Consult to Orthopedics Stat Consulting Provider: [facility] Reason for consultation: right third finger cellulitis Has provider been notified: Yes 04/19/24 11:39 Consult to Orthopedics Routine Consulting Provider: Chrsity Rushing Reason for consultation: hand infection /splinter Has provider been notified: No 04/19/24 16:03 Consult to Infectious Diseases Routine Consulting Provider: [facility] Reason for consultation: cellulitis right hand/arm Has provider been notified: No Attending physician on discharge: Torres Yousif Discharging clinician: Torres Yousif DS: Diagnosis Discharge Diagnosis (1) Cellulitis of middle finger: Status: Acute DS: Summary Hospital Course Hospital Course: 49 y/o F with pmhx hyperlipidemia, migraines and anxiety and depression, who presents emergency department with complaints of right 3rd finger pain and swelling since last night. 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 She states that she is staying at the [facility] home where evaluated by a nurse yesterday and was told that if it becomes any more painful or swollen to seek emergent care. She states that she awoke this morning in her right finger was more swollen, red and now she is having difficulty with movement of her finger. She denies any fevers or chills. Denies taking any medications prior to arrival. No history of diabetes. No hx of IVDA. She states that her last tetanus shot was 1-2 years ago. No other complaints or concerns at this time. labs,imaging reviewed: wbc 18.7 , tachycardia lactc acid normal hand xray-Examination demonstrates soft tissue swelling of the right third digit. There is a possible soft tissue defect at the radial aspect of the third DIP joint. No radiopaque foreign body is identified. Hospital course: Patient was admitted to the hospital because of right middle finger cellulitis with some lymphangitis-patient is started on IV antibiotics, lactic acid normal, blood cultures sent, leukocytosis, in addition patient was seen by ortho: No acute orthopedic intervention, suspicion for flexor tenosynovitis very low, patient seems to be improved significantly with IV antibiotics, her erythematous swelling improved significantly as well as leukocytosis also improved, no fever, blood culture negative at 48 hours. finger wound culture -strep group c. Patient was seen by infectious disease and recommended-doxycycline p.o. 100 mg b.i.d. for 2 weeks. continue half-strength peroxide and water soaks once per day to encourage wound healing Patient was amenable to this plan,Daily dressing changes with gauze and Cintia Patient is to follow-up with orthopedic clinic outpatient. Plan: Complete-doxycycline p.o. 100 mg b.i.d. for 2 weeks. follow-up with orthopedic clinic outpatient as well as PCP outpatient. If any new fever or new erythema or drainage or new changes at the finger area- need to go to nearest emergency room. Assessment and plan coordination time spent 40 minute. Time Attestation Total time managing care of this patient today: 40 mintues. Discharge Coordination Time (in mins): 40min Quality: Safe Use of Opioids Does Pt have an Active Cancer Diagnosis on the Problem List?: No Quality: Stroke Does the patient have a stroke diagnosis?: No Physical Exam Vital Signs: Vital Signs: Last Vital Signs Temp 97.3 F 04/22/24 07:46 Pulse 75 04/22/24 07:46 Resp 17 04/22/24 07:46 BP 131/60 04/22/24 07:46 Pulse Ox 98 04/22/24 07:46 O2 Del Method Room Air 04/22/24 07:46 BMI result Body Mass Index 27.4 DS: Data Data Completed and Pending Labs on day of discharge: Laboratory Results - last 24 hr 04/21/24 04/22/24 18:09 07:54 Sodium 140 Potassium 3.9 Chloride 110 H Carbon Dioxide 23 Anion Gap 11 L BUN 10 Creatinine 0.52 Estim Creat Clear Calc 117.0 Estimated GFR > 60 Random Glucose 77 Calcium 8.5 D Random Vancomycin 28.8 H* 5.9 L Preliminary micro results at discharge 04/19/24 08:57 Blood Culture - Preliminary Blood - Venous No growth after 48 hours. 04/19/24 08:40 Blood Culture - Preliminary Blood - Venous No growth after 48 hours. Imaging Chest x-ray: Radiologist's impression: ITS Impressions Finger X-Ray 04/19/24 08:15 IMPRESSION: Findings as above. Electronically signed by: Kd Madrid MD 04/19/2024 10:01 AM EDT RP Chest X-Ray 04/19/24 15:10 IMPRESSION: No active disease. Electronically signed by: Jung Vargas MD 04/19/2024 04:32 PM EDT RP Discharge Plan Discharge Anticipated Discharge Date/Time: 04/22/24 09:00 Patient Disposition: Home, Self-Care Discharge Diagnosis: finger cellulitis Referrals: Han Alcala PA [Physician Branch Controller] - 1 Week Rudy Barth PA-C [Primary Care Provider] - 1 Week Discharge Medications: Continued gabapentin 300 mg capsule 300 mg PO BID 30 Days Qty: 60 6RF ibuprofen 800 mg tablet 800 mg PO TID PRN (Reason: pain) 30 Days Qty: 90 3RF valacyclovir 500 mg tablet 500 mg PO DAILY diclofenac sodium 75 mg tablet,delayed release (DR/EC) 75 mg PO BID fluticasone propionate 50 mcg/actuation spray,suspension 1 spray intranasal BID cyclobenzaprine 10 mg tablet 10 mg PO BID PRN (Reason: muscle spasm) multivitamin Tablet 1 tab PO DAILY prednisone 20 mg tablet See Taper PO DAILY Taper: Prednisone 60 mg daily for 2 Days and 0 Hour 40 mg daily for 2 Days and 0 Hour 20 mg daily for 2 Days and 0 Hour acetaminophen 500 mg tablet 500 mg PO Q6H PRN (Reason: fever) Qty: 60 0RF Rx Instructions: Take 1 tablet every 6 hours as needed for pain/fever. Do not take in combination with Fioricet. vdyidgbweu-jtypoeciuv-pty-cod [id number] mg capsule 1 cap PO Q6H PRN (Reason: Headaches) paroxetine HCl 20 mg tablet 20 mg PO DAILY PRN (Reason: Mood) Discharge Orders: Discharge Order (Routine); Ordered 04/22/24 Ordered By: Torres Yousif Diet: Advance to usual diet Activity on Discharge: As tolerated Stand Alone Forms: Patient Portal Discharge page Print Language: Scottish Care Plan Goals: Patient was admitted to the hospital because of right middle finger cellulitis with some lymphangitis-patient is started on IV antibiotics, lactic acid normal, blood cultures sent, leukocytosis, in addition patient was seen by ortho: No acute orthopedic intervention, suspicion for flexor tenosynovitis very low, patient seems to be improved significantly with IV antibiotics, her erythematous swelling improved significantly as well as leukocytosis also improved, no fever, blood culture negative at 48 hours. finger wound culture -strep group c. Patient was seen by infectious disease and recommended-doxycycline p.o. 100 mg b.i.d. for 2 weeks. continue half-strength peroxide and water soaks once per day to encourage wound healing and drainage of any other possible infectious agents from her wound site Patient was amenable to this plan,Daily dressing changes with gauze and Cintia Patient is to follow-up with orthopedic clinic outpatient. Health Concerns: As above. Plan of Treatment: As above. Assessment: As above.
[2024-04-22] MEDS: cephALEXin 500 MG CAPSULE PO (13:06)
--- NOTE | 2024-05-05 11:26 | P.CDIM_ITS ---
PROVIDER RESPONSE TEXT: To clarify, the appropriate diagnosis supported by the clinical indicators: Yes, Sepsis is a valid diagnosis for this patient QUERY TEXT: PHYSICIAN'S DOCUMENTATION REQUEST Date of Query: 05/05/2024 07:40 AM EDT Patient Name: Abril Sun Admit Date: 04/19/2024 Dear Torres Yousif MD, A review of the medical record indicates additional documentation may be needed. Please review below and update the documentation accordingly. A diagnosis of Sepsis was included in the signed Hospitalist H&P on 04/19/24. Additional clinical indicators in the record include: Sepsis secondary to Cellulitis of right middle finger, lymphangitis Lactic acid normal, blood cultures sent, has tachycardia and elevated WBC IV Vancomycin and Clindamycin Discharge Summary 04/22/24 does not mention the diagnosis of Sepsis Please indicate if you are in agreement that the above diagnosis is valid for this patient: Yes, Sepsis is a valid diagnosis for this patient No, Sepsis is a not a valid diagnosis for this patient The diagnosis of Sepsis is not yet confirmed but remains a suspected condition (This option is only f or use at the time of discharge or during a retrospective review.) Other (explain) Clinically unable to determine (explain) Thank you, Maria Luisa Barrera RN Use of terms such as suspected, likely, concern for, or probable (associated with a specific diagnosi s that is being evaluated, monitored, or treated as if it exists) are acceptable and can be coded in the inpatient se tting, when documented at the time of discharge. Please use your independent medical judgment in providing your response. THIS QUERY IS PART OF THE PERMANENT MEDICAL RECORD
== END 2024-04-22 13:05 | disposition home or self-care (01) | DRG 872 ==
LOC: HO.ED 08:22 → HO.EDOVER 11:16 → HO.S3 04-20 12:44
PROVIDERS: Internal Medicine; Physician Assistant Medical; Admitting Provider Internal Medicine; Emergency Provider Emergency Medicine; PCP Physician Assistant; Visit Provider Internal Medicine
DX: A41.9 Sepsis, unspecified organism (principal); Z59.01 Sheltered homelessness; L03.011 Cellulitis of right finger; M79.7 Fibromyalgia; Z23 Encounter for immunization; E78.5 Hyperlipidemia, unspecified; G43.909 Migraine, unspecified, not intractable, without status migrainosus; F41.9 Anxiety disorder, unspecified; F32.A Depression, unspecified; F17.210 Nicotine dependence, cigarettes, uncomplicated; Z71.6 Tobacco abuse counseling; Z20.822 Contact with and (suspected) exposure to COVID-19; Z79.52 Long term (current) use of systemic steroids; Z79.899 Other long term (current) drug therapy
CPT/HCPCS: 36415; 71045; 73140; 80048; 80053; 80202; 80307; 82565; 83605; 85025; 85027; 86803; 87040; 87070; 87147; 87205; 87389; 87633; 90656; 99285; J0692; J0736; J1885; J2270; J3370; J3371; J7120

== ENCOUNTER → 2024-04-19 07:59 | Outpatient (BNV) | payer MEDICARE, MEDICAID, SELFPAY | PROVIDERS: Emergency Provider Emergency Medicine; PCP Physician Assistant; Visit Provider Physician Assistant | DX: L03.011 Cellulitis of right finger (principal) | CPT/HCPCS: 99232; 99283 ==

== ENCOUNTER → 2024-04-19 11:12 | Outpatient (BNV) | payer MEDICARE, MEDICAID, SELFPAY | PROVIDERS: Admitting Provider Internal Medicine; Emergency Provider Emergency Medicine; PCP Physician Assistant; Visit Provider Internal Medicine | DX: L03.011 Cellulitis of right finger (principal) | CPT/HCPCS: 99222; 99231; 99239 ==

== ENCOUNTER → 2024-04-19 11:12 | Outpatient (BNV) | payer MEDICARE, MEDICAID, SELFPAY | PROVIDERS: Admitting Provider Internal Medicine; Emergency Provider Emergency Medicine; PCP Physician Assistant; Visit Provider Internal Medicine | DX: L03.011 Cellulitis of right finger (principal) | CPT/HCPCS: 99222 ==

== ENCOUNTER 2024-04-23 20:33 | Emergency (ER) | payer MEDICARE, MEDICAID, SELFPAY ==
--- NOTE | 2024-04-23 | ECG_ITS ---
Test Reason : chest discomfort Blood Pressure : / mmHG Vent. Rate : 076 BPM Atrial Rate : 076 BPM P-R Int : 150 ms QRS Dur : 094 ms QT Int : 388 ms P-R-T Axes : 044 022 055 degrees QTc Int : 436 ms Normal sinus rhythm Normal ECG When compared with ECG of 05-FEB-2024 11:37, No significant change was found Referred By: Generic ED Physician Electronically Signed By:TENISHA PATEL
[2024-04-23 20:37] VITALS: BP 137/46; PULSE 79; RESP 16; TEMP 36.6; O2SAT 95; BMI 27.4
[2024-04-23 21:06] LABS: Basophils Absolute Auto 0.1 X10*3/uL (0.0-0.2); Basophils Percent Auto 0.4 % (0-2); Eosinophils Absolute Auto 0.1 X10*3/uL (0.0-0.4); Eosinophils Percent Auto 0.5 % (0-4); Hematocrit 39.8 % (37.0-47.0); Hemoglobin 13.4 g/dl (12.0-16.0); Imm Gran Abs Auto 0.23 X10*3/uL (0.00-0.03); Imm Gran Pct Auto 1.4 % (0.0-0.4); Lymphocytes Absolute Auto 4.6 X10*3/uL (1.2-4.9); Lymphocytes Percent Auto 28.2 % (20-40); MANUAL DIFF FLAG SCAN; Mean Corpuscular HGB Conc 33.7 g/dl (31.0-35.0); Mean Corpuscular Hemoglobin 31.7 pg (27.0-33.0); Mean Corpuscular Volume 94.1 fL (80.0-98.0); Monocytes Absolute Auto 0.8 X10*3/uL (0.1-1.2); Monocytes Percent Auto 4.9 % (2-11); Neutrophils Absolute Auto 10.6 x10*3/uL (2.0-8.3); Neutrophils Percent Auto 64.6 % (45-73); Platelet Count 345 X10*3/uL (160-400); Red Blood Count 4.23 X10*6/uL (4.20-5.50); Red Cell Distribution Width 14.2 % (11.0-16.0); SCAN SMEAR FLAG 1; White Blood Count 16.4 X10*3/uL (4.8-10.8)
[2024-04-23 21:19] LABS: Alanine Aminotransferase 37 U/L (0-31); Albumin Level 4.1 g/dL (3.5-5.0); Alkaline Phosphatase 71 U/L (39-117); Anion Gap 12 (12-20); Aspartate Amino Transferase 19 U/L (5-31); Bilirubin Total 0.2 mg/dL (0.0-1.0); Blood Urea Nitrogen 10 mg/dL (9-16); Calcium 9.4 mg/dL (8.4-10.2); Carbon Dioxide 27 mmol/L (22-29); Chloride 108 mmol/L (96-108); Creatinine Clr Calc Pharmacy 98.1; Estimated Glomerular Filt Rate > 60; Glucose Random 109 mg/dL (60-115); Potassium 3.7 mmol/L (3.3-5.1); Sodium 143 mmol/L (135-145); Total Protein 6.7 g/dL (6.5-8.0)
[2024-04-23 21:26] LABS: SLIDE REVIEW VERIFIED; Troponin-I High Sensitivity < 2.7 ng/L (<3.5-17.0)
[2024-04-23 21:34] VITALS: BP 134/49; PULSE 77; RESP 18; TEMP 36.8; O2SAT 98
--- OUTSIDE RECORDS SUMMARY | 2024-04-23 21:54 | XMS_ITS | Patient Health Record ---
Author Organization [facility] Address [address] [place] [address] Care Team Providers Care Medical Engineer Name Role Phone SHANITA JONES Primary Care [...] Risk Notes Problem Lumbosacral spondylosis without myelopathy ([id number]) Spondylosis without myelopathy or radiculopathy, lumbar region (M47.816) Active confirmed Plan Of Treatment No Information Insurance Providers Payer Name Payer Address Payer Phone Subscriber Number Group Number Insured Name Patient Relationship to Insured Coverage Start Date Coverage End Date Medicare B [facility] [address] [place] [id number] RAMIREZ RILEYE Self - patient is the insured [employer] [employer] of [place] [address] [place] [address] [id number] RAMIREZ RILEYE Self - patient is the [...]
--- NOTE | 2024-04-23 22:24 | ED.GENADULT ---
HPI - General Adult General Chief complaint: General Medical Stated complaint: right middle finger wound/migraine Time Seen by Provider: 04/23/24 22:18 Source: patient Mode of arrival: ambulatory Limitations: no limitations History of Present Illness ED Provider: thom LOPEZ narrative: Patient with right middle finger cellulitis from the open wound seen by orthopedics and was admitted in the hospital for 3 days discharge yesterday on p.o. antibiotic comes back again as after putting the peroxide she noticed yellowish discharge no increase in redness no fever no chills also complaining of other complaints including chest pain patient nonspecific workup before my evaluation is negative patient lives in a senior care Related Data Home Medications ?Medication ?Instructions ?Recorded ?Confirmed butalbital 50 mg-acetaminophen 325 1 cap PO Q6H PRN Headaches 02/26/23 04/19/24 mg-caffeine 40 mg-codeine 30 mg cap paroxetine HCl 20 mg tablet 20 mg PO DAILY PRN Mood 02/26/23 04/19/24 diclofenac sodium 75 mg 75 mg PO BID 02/17/24 04/19/24 tablet,delayed release valacyclovir 500 mg tablet 500 mg PO DAILY 02/17/24 04/19/24 cyclobenzaprine 10 mg tablet 10 mg PO BID PRN muscle spasm 04/19/24 04/19/24 multivitamin 1 tab PO DAILY 04/19/24 04/19/24 prednisone 20 mg tablet See Taper PO DAILY 04/19/24 04/19/24 Previous Rx's ?Medication ?Instructions ?Recorded acetaminophen 500 mg tablet 500 mg PO Q6H PRN fever #60 tabs 04/23/23 gabapentin 300 mg capsule 300 mg PO BID 30 days #60 caps 01/05/24 ibuprofen 800 mg tablet 800 mg PO TID PRN pain 30 days #90 03/08/24 tabs cephalexin 500 mg capsule 500 mg PO TID #42 caps 04/22/24 docusate sodium 100 mg capsule 100 mg PO DAILY PRN constipation 04/22/24 (Colace) #30 caps fluticasone propionate 50 1 spray intranasal BID #16 grams 04/22/24 mcg/actuation nasal spray,suspension guaifenesin 100 mg/5 mL oral liquid 100 mg (5 mL) PO Q6H PRN cough 04/22/24 #473 mL loratadine 10 mg tablet 10 mg PO DAILY #10 tabs 04/22/24 oxycodone 5 mg capsule 5 mg PO BID PRN pain #10 caps 04/22/24 Allergies Allergy/AdvReac Type Severity Reaction Status Date / Time topiramate [From TOPAMAX] Allergy Mild NAUSEA & Verified 04/23/24 20:38 VOMITING divalproex sodium AdvReac Unknown NAUSEA & Verified 04/23/24 20:38 [From DEPAKOTE] VOMITING Review of Systems Review of Systems: Yes all other systems are reviewed and are negative [facility] Past Medical History Medical History Wrist pain, left Ankle pain, left Obesity Restless leg syndrome Migraine Anxiety Fibromyalgia Surgical History H/O rectal polypectomy History of surgery History of hernia repair History of wisdom tooth extraction History of tonsillectomy History of umbilical hernia repair H/O LEEP History of colectomy Family History Family History Father CVD (cardiovascular disease) Myocardial infarction Mother Chronic mental illness Dementia Myocardial infarction, Onset Age: 40 Seizure Sister In good health Son In good health Maternal Aunt Breast CA Paternal Aunt Breast CA Other Mental health disorder Social History Social History Household Members Other:: roommate Housing: Other Housing Other:: lives in senior care Do you presently have visiting nurse or other home services: No Alcohol intake: current Alcohol intake frequency: does not drink Patient Tobacco Use Status: Current everyday Tobacco user Tobacco use type: Cigarette Cigarette Packs Per Day: 1 Cigarettes Per Day: 20.0 Years Smoked: 15 Smoked in Last 30 Days: Yes e-Cigarette/Vaping Use: Never Used Second Hand Smoke Exposure: Yes Use of substances other than those prescribed or required for medical reasons: No Substance Use Type: Marijuana Advance Directives: Yes Advance Directives on File: Yes Advance Directives Date on File: 09/17/22 Do you have a plan to hurt others: No Plan Patient : No service: No Current occupational status: disabled Cognitive needs: No Hearing needs: No Vision needs: No Physical Exam ED Vital Signs: Vital Signs - 24 hr 04/23/24 20:37 04/23/24 21:34 Temperature 97.8 F 98.2 F Pulse Rate 79 77 Respiratory Rate 16 18 Blood Pressure 137/46 L 134/49 L Pulse Oximetry 95 98 Oxygen Delivery Method Room Air Room Air BMI result Body Mass Index 27.4 Appearance: Alert. Oriented X3. No acute distress. Eyes: No pallor or icterus ENT: Pharynx normal. Oral Mucosa moist Neck: Normal inspection. Neck supple. CVS: Normal heart rate and rhythm. Pulses normal. Respiratory: No respiratory distress. Equal air entry bilateral, no wheezing/rales/rhonchi Abdomen: Soft and nontender. Bowel sounds are present, Skin: Skin warm and dry. Normal skin color. Normal skin turgor. Extremities: No lower extremity edema. No calf tenderness right middle finger with small open wounds surrounding cellulitis no palmar tenderness neurovascular intact Neuro: Oriented X 3. No motor deficit. Medical Decision Making Medical Decision Making [facility] Narrative: Patient with healing cellulitis advised to continue antibiotic as prescribed during discharge and follow up with Orthopedics/PCP Differential Diagnosis Differential Diagnoses: The differential diagnosis associated with the presentation includes Lab Data [facility] Lab Attestation statement: I reviewed the patient's lab results. 04/23/24 20:59 04/23/24 20:59 Labs: Lab Results 04/23/24 Range/Units 20:59 WBC 16.4 H (4.8-10.8) X10*3/uL RBC 4.23 (4.20-5.50) X10*6/uL Hgb 13.4 (12.0-16.0) g/dl Hct 39.8 (37.0-47.0) % MCV 94.1 (80.0-98.0) fL MCH 31.7 (27.0-33.0) pg MCHC 33.7 (31.0-35.0) g/dl RDW 14.2 (11.0-16.0) % Plt Count 345 (160-400) X10*3/uL MPV 9.0 L (9.4-12.3) fL Immature Gran % (Auto) 1.4 H (0.0-0.4) % Neut % (Auto) 64.6 (45-73) % Lymph % (Auto) 28.2 (20-40) % Sherman % (Auto) 4.9 (2-11) % Eos % (Auto) 0.5 (0-4) % Baso % (Auto) 0.4 (0-2) % Lymph # (Auto) 4.6 (1.2-4.9) X10*3/uL Sherman # (Auto) 0.8 (0.1-1.2) X10*3/uL Eos # (Auto) 0.1 (0.0-0.4) X10*3/uL Baso # (Auto) 0.1 (0.0-0.2) X10*3/uL Abs Immat Gran (auto) 0.23 H (0.00-0.03) X10*3/uL Absolute Neuts (auto) 10.6 H (2.0-8.3) x10*3/uL Absolute Nucleated RBC 0.000 (0.0-0.012) X10*3/uL Nucleated RBC % (auto) 0.0 (0.0-0.2) /100WBC Smear Tech's Comments VERIFIED Sodium 143 (135-145) mmol/L Potassium 3.7 (3.3-5.1) mmol/L Chloride 108 (96-108) mmol/L Carbon Dioxide 27 (22-29) mmol/L Anion Gap 12 (12-20) BUN 10 (9-16) mg/dL Creatinine 0.62 (0.5-1.4) mg/dL Estim Creat Clear Calc 98.1 Estimated GFR > 60 Random Glucose 109 (60-115) mg/dL Calcium 9.4 D (8.4-10.2) mg/dL Total Bilirubin 0.2 (0.0-1.0) mg/dL AST 19 (5-31) U/L ALT 37 H (0-31) U/L Alkaline Phosphatase 71 (39-117) U/L Troponin I High Sens < 2.7 (<3.5-17.0) ng/L Total Protein 6.7 (6.5-8.0) g/dL Albumin 4.1 (3.5-5.0) g/dL Independent Interpretation I performed an independent interpretation of an: EKG Interpretation: Normal sinus rhythm heart rate 76 beats per minute normal intervals normal axis no acute STT wave changes no acute ischemia Discharge Plan Discharge Clinical Impression: Cellulitis of right middle finger Patient Disposition: Home, Self-Care Instructions: Cellulitis (DC) Additional Instructions: Continue antibiotics as prescribed And follow with Orthopedics as planned Prescriptions: No Action gabapentin 300 mg capsule 300 mg PO BID 30 Days Qty: 60 6RF ibuprofen 800 mg tablet 800 mg PO TID PRN (Reason: pain) 30 Days Qty: 90 3RF fluticasone propionate 50 mcg/actuation spray,suspension 1 spray intranasal BID Qty: 16 0RF valacyclovir 500 mg tablet 500 mg PO DAILY diclofenac sodium 75 mg tablet,delayed release (DR/EC) 75 mg PO BID cyclobenzaprine 10 mg tablet 10 mg PO BID PRN (Reason: muscle spasm) multivitamin Tablet 1 tab PO DAILY prednisone 20 mg tablet See Taper PO DAILY Taper: Prednisone 60 mg daily for 2 Days and 0 Hour 40 mg daily for 2 Days and 0 Hour 20 mg daily for 2 Days and 0 Hour cephalexin 500 mg capsule 500 mg PO TID Qty: 42 0RF oxycodone 5 mg capsule 5 mg PO BID PRN (Reason: pain) Qty: 10 0RF Rx Instructions: Partial Fill upon patient request. guaifenesin 100 mg/5 mL Liquid 100 mg PO Q6H PRN (Reason: cough) Qty: 473 0RF loratadine 10 mg Tablet 10 mg PO DAILY Qty: 10 0RF docusate sodium [Colace] 100 mg capsule 100 mg PO DAILY PRN (Reason: constipation) Qty: 30 0RF acetaminophen 500 mg tablet 500 mg PO Q6H PRN (Reason: fever) Qty: 60 0RF Rx Instructions: Take 1 tablet every 6 hours as needed for pain/fever. Do not take in combination with Fioricet. kftkjabjgd-sjnofxqjla-lde-cod [id number] mg capsule 1 cap PO Q6H PRN (Reason: Headaches) paroxetine HCl 20 mg tablet 20 mg PO DAILY PRN (Reason: Mood) Print Language: Mongolian
[2024-04-23 22:58] VITALS: BP 134/49; PULSE 77; RESP 18; TEMP 36.8; O2SAT 98
== END 2024-04-23 23:00 | disposition home or self-care (01) ==
PROVIDERS: Emergency Provider Internal Medicine; PCP Physician Assistant
DX: L03.011 Cellulitis of right finger (principal); R07.9 Chest pain, unspecified; F17.210 Nicotine dependence, cigarettes, uncomplicated
CPT/HCPCS: 36415; 80053; 84484; 85025; 93005; 99283; 99284

== ENCOUNTER 2024-04-26 13:43 | Outpatient (AMB) | payer MEDICARE, MEDICAID, SELFPAY ==
--- OUTSIDE RECORDS SUMMARY | 2024-04-26 13:49 | XMS_ITS | Patient Health Record ---
Author Organization [facility] Address [address] [place] [address] Care Team Providers Care Family Psychologist Name Role Phone SHANITA JONES Primary Care [...] Risk Notes Problem Lumbosacral spondylosis without myelopathy ([id number]) Spondylosis without myelopathy or radiculopathy, lumbar region (M47.816) Active confirmed Plan Of Treatment No Information Insurance Providers Payer Name Payer Address Payer Phone Subscriber Number Group Number Insured Name Patient Relationship to Insured Coverage Start Date Coverage End Date Medicare B [facility] [address] [place] [phone] [id number] RAMIREZ RILEYE Self - patient is the insured [employer] of [place] [address] [place] [address] [id number] RAMIREZ RILEYE Self - patient is the [...]
--- NOTE | 2024-04-26 13:51 | A.OFFPC_ITS ---
Vital Signs 3 04/26/24 13:54 Height 5 ft 2 in Weight 157 lb BMI 28.7 BP 124/82 Blood Pressure Location Lt brachial Position Sitting Pulse 92 Pulse Source Pulse Oximeter Pulse Oximetry (%) 99 Oxygen Delivery Method Room Air Intake Visit Reasons: PE Drive Tester Required: No Accompanied by: Self / Same As Patient Allergies topiramate [From TOPAMAX] Allergy (Mild, Verified 04/26/24 14:07) NAUSEA & VOMITING divalproex sodium [From DEPAKOTE] Adverse Reaction (Unknown, Verified 04/26/24 14:07) NAUSEA & VOMITING Medication List - Last Reconciled 04/26/24 by Rudy Barth PA-C acetaminophen 500 mg PO Q6H PRN wdlyogyrum-sszjrmwvov-qgm-cod [id number] mg 1 cap PO Q6H PRN cephalexin 500 mg PO TID cyclobenzaprine 10 mg PO BID PRN diclofenac sodium 75 mg PO BID docusate sodium (Colace) 100 mg PO DAILY PRN fluticasone propionate 50 mcg/actuation 1 spray intranasal BID gabapentin 300 mg PO BID 30 days guaifenesin 100 mg (5 mL) PO Q6H PRN ibuprofen 800 mg PO TID PRN 30 days loratadine 10 mg PO DAILY multivitamin 1 tab PO DAILY oxycodone 5 mg PO BID PRN paroxetine HCl 20 mg PO DAILY PRN prednisone See Taper mg PO DAILY valacyclovir 500 mg PO DAILY Tobacco use date assessed: 10/20/23 Dental Screening Dental Screen Date: 05/18/23 HPI PE 2 HPI0 Details Patient is a 49-year-old female?.? Patient has a past medical history significant for obesity, tobacco use disorder, fibromyalgia, Migraine disorder,? lumbar spine pain with sciatica, Allergic rhintits. Patient recently admitted to [facility] for an acute infection of the middle finger requiring antibiotics. Her finger infection has clinically been improving and she has outpatient follow-up with orthopedics. She now needs letter to return back to [employer] school to finish out her semester. Will supply patient with meloxicam 15 mg to use for her pain as an alternative to oxycodone. .. Depression: Patient has lost follow-up with her mental health therapist at [facility]. She would like to reestablish care with a mental health therapist as she has been feeling a bit more depressed and will like to start cognitive behavioral therapy again. .. Hyperlipidemia:? Patient currently managing her borderline high cholesterol with lifestyle and dietary modifications. Was on statin therapy though has stopped taking this medication. .. Tobacco use disorder:? Unfortunately still smoking as isabella has found it very hard to quit smoking.? Thoracic spine pain:? Most recent MRI thoracic spine shows small disc herniation in the thoracic spine. She is done physical therapy though has not been helpful. She is currently using gabapentin and cyclobenzaprine which have been helpful. She is interested in massage therapy and will seek this out on her own. Colon cancer screening: Needs Colonoscopy Mammogram: Get mammo done at [facility] Medical History Wrist pain, left Ankle pain, left Obesity Restless leg syndrome Migraine Anxiety Fibromyalgia Surgical History H/O rectal polypectomy History of surgery History of hernia repair History of wisdom tooth extraction History of tonsillectomy History of umbilical hernia repair H/O LEEP History of colectomy Family History Father CVD (cardiovascular disease) Myocardial infarction Mother Chronic mental illness Dementia Myocardial infarction, Onset Age: 40 Seizure Sister In good health Son In good health Maternal Aunt Breast CA Paternal Aunt Breast CA Other Mental health disorder Social History Household Members Other:: roommate Housing: Other Housing Other:: lives in retirement Do you presently have visiting nurse or other home services: No Alcohol intake: current Alcohol intake frequency: does not drink Patient Tobacco Use Status: Current everyday Tobacco user Tobacco use type: Cigarette Cigarette Packs Per Day: 1 Cigarettes Per Day: 20.0 Years Smoked: 15 e-Cigarette/Vaping Use: Never Used Second Hand Smoke Exposure: Yes Substance Use Type: Marijuana Advance Directives Date on File: 09/17/22 service: No Current occupational status: disabled Cognitive needs: No Hearing needs: No Vision needs: No Questionnaire Thrive Questionnaire Date Thrive assessed: 04/20/24 SALOMON-7 AMB Questionnaire SALOMON-7 Date SALOMON - 7 assessed: 10/20/23 Source: Developed by Drs. Ayan Curiel, Brooke Alfaro, Reagan Veronica and colleagues, with an educational cornelia from [employer] Review of Systems Const Denies body aches, Denies chills, Denies excessive sweating, Denies fatigue, Denies fever(s) and Denies headache(s) Eyes Denies blurry vision ENT Denies dysphagia, Denies vertigo, Denies dizziness, Denies headache(s), Denies hearing loss and Denies tinnitus Card Denies chest pain, Denies chest pain with activity, Denies syncope, Denies irregular heart rhythm and Denies dyspnea Resp Denies chest congestion, Denies cough, Denies hemoptysis, Denies dyspnea and Denies wheezing GI Denies abdominal pain, Denies melena, Denies hematochezia, Denies coffee ground emesis, Denies dysphagia, Denies diarrhea, Denies nausea and Denies vomiting Denies urinary frequency, Denies dysuria, Denies urinary hesitancy and Denies urinary urgency Musc Denies arthralgias, Denies limited range of motion, Denies muscle cramps and Denies muscle weakness Skin/Breast Denies rash and Denies skin ulcer Neuro Denies Abnormal speech present, Denies confusion, Denies vertigo, Denies dizziness, Denies syncope, Denies headache(s), Denies memory loss and Denies seizure-like activity Psych Denies anxiety, Denies confusion, Denies depression, Denies memory loss, Denies panic attacks and Denies paranoia Endo Denies excessive sweating, Denies fatigue, Denies flushing, Denies polydipsia and Denies polyuria Aller/Immun Denies wheezing Physical exam (Primary Care) Vital Signs: Last Vital Signs Pulse 92 04/26/24 13:54 BP 124/82 04/26/24 13:54 Pulse Ox 99 04/26/24 13:54 Oxygen Delivery Method Room Air 04/26/24 13:54 BMI result Body Mass Index 28.7 Tobacco/Smoking Status: Tobacco use Status Tobacco use date assessed 10/20/23 04/26/24 13:53 Patient Tobacco Use Status Current everyday Tobacco 04/26/24 13:53 Tobacco use type Cigarette 04/26/24 13:53 e-Cigarette/Vaping Use Never Used 04/26/24 13:53 Are you ready to quit: No Tobacco cessation counseling provided: Yes Items discussed: Nicotine replacement Relapse Prevention: discussed the importance of a supportive environment, discussed negative mood or depression after quitting, weight gain after smoking is common and discussed dietary, exercise and/or lifestyle changes Number of minutes spent counselin CPT code: 10475 - 4-10 Minutes Thrive Assessment: Date of Thrive Assessment Date Thrive assessed 04/20/24 04/26/24 13:53 Const General: cooperative, comfortable, no acute distress, alert and awake; No confusion Orientation/consciousness: oriented to person, oriented to place, patient oriented x3 and No confusion HENMT Head: Yes normocephalic Ears: external ears normal and TM's normal bilaterally Face and sinus: No sinus tenderness Mouth: Normal oral and palatal mucosa present and tongue normal Teeth and gingiva: dentition normal and gingiva normal Throat: Yes posterior oropharynx normal, Yes tonsils normal and Yes uvula midline Eyes Conjunctivae: conjunctivae normal Sclerae: sclerae normal Pupils: Equal, round and reactive pupils present EOM: EOMs intact bilaterally Direct Ophthalmoscopy: No no photophobia Neck Neck: Yes no lymphadenopathy, No tender and Yes no JVD Thyroid: Thyroid normal Carotids: no bruits Chest Chest palpation & inspection: no tenderness Resp Effort & Inspection: normal respiratory effort, no audible wheezes, not labored and no stridor Auscultation: no crackles, no rales, no rhonchi and no wheezes Cardio Jugular venous distension: no JVD Rate: regular rate, not bradycardic and not tachycardic Rhythm: regular rhythm Bruits: no carotid bruits Peripheral pulses: Peripheral pulses 2+ throughout GI Inspection: Yes normal to inspection, No abdominal wall ecchymosis and No visible herniation Palpation (GI): Soft to palpation, nontender, no guarding, not rigid and No hepatosplenomegaly present Auscultation: normoactive bowel sounds General: Yes no CVA tenderness Back/Spine/Pelvis Back: no CVA tenderness and No back tenderness Cervical Spine: cervical ROM normal Thoracic/Lumbar Spine: thoracic and lumbar spine normal to inspection, straight leg raise negative bilaterally, No thoraco-lumbar ROM limited and No lumbar spinal tenderness Skin Lesions: no lesions Rashes: no rashes Wounds: no wounds Neuro General: oriented to person, oriented to place, patient oriented x3, CN's II-XI intact bilaterally and No confusion Cranial nerves: Yes Equal, round and reactive pupils present and Yes Normal accommodation reflex present Cognition (Neuro): normal cognition Speech: No Abnormal speech present Gait exam (Neuro): Normal gait present Motor exam (neuro): 5/5 motor strength present throughout Extrem Other: Right upper extremity: full ROM; no cyanosis Left upper extremity: full ROM; no cyanosis Right lower extremity: no edema Left lower extremity: no edema Psych Appearance: grossly normal Mental Status: mental status grossly normal Affect: normal affect Attitude: cooperative Thought process: Normal thought process present Coding Level of Care Code Est Pt Prev Care 40-64y(37627) Diagnoses Annual physical exam Z00.00 Cellulitis of middle finger L03.011 Laterality: right Mixed hyperlipidemia E78.2 Hyperlipidemia type: mixed hyperlipidemia Smoker F17.200 Leukocytosis, unspecified type D72.829 Leukocytosis type: unspecified MDD (major depressive disorder), recurrent episode, moderate F33.1 Additional Codes Vital Signs *Quality* - CPT code: 03217 - 4-10 Minutes ([id number]) Assessment & Plan Assessment & Plan (1) Annual physical exam: Code(s): Z00.00 - Encounter for general adult medical examination without abnormal findings Category: Medical Plan: As per HPI (2) Cellulitis of middle finger: Code(s): L03.019 - Cellulitis of unspecified finger Category: Medical Qualifiers: Laterality: right Qualified Code(s): L03.011 - Cellulitis of right finger Plan: PLEASE SEE PICTURE SECTION AND PHYSICAL EXAM. Has continued on antibiotics and clinically has improved. She has regained some range of motion and swelling much better. Will be following up with Orthopedics on (3) HLD (hyperlipidemia): Code(s): E78.5 - Hyperlipidemia, unspecified Category: Medical Qualifiers: Hyperlipidemia type: mixed hyperlipidemia Qualified Code(s): E78.2 - Mixed hyperlipidemia Plan: Patient's most recent lipid panel showing decent control over total cholesterol and LDL. She will work on lifestyle and dietary modifications to control her cholesterol at this time. Unfortunately still smoking does understand she needs to quit smoking. Goal LDL to be below 130 (4) Smoker: Code(s): F17.200 - Nicotine dependence, unspecified, uncomplicated Category: Social Hx Plan: As above patient does understand she needs to quit smoking. Offered her nicotine replacement or Chantix though patient declines at this time. (5) Leukocytosis: Code(s): D72.829 - Elevated white blood cell count, unspecified Category: Medical Qualifiers: Leukocytosis type: unspecified Qualified Code(s): D72.829 - Elevated white blood cell count, unspecified Plan: Patient continues to have leukocytosis. Has seen Hematology in the past and will be following up. At this time no clear cause of her leukocytosis. Advised to stop smoking. (6) MDD (major depressive disorder), recurrent episode, moderate: Code(s): F33.1 - Major depressive disorder, recurrent, moderate Category: Medical Plan: As per HPI patient has a long history of depression. She would like to restart cognitive behavioral therapy. She requests to [facility] in Orders: Orders 2 Comprehensive [place]. Panel Fast 04/26/24 E78.2 - Mixed hyperlipidemia Complete Blood Count no Diff 04/26/24 E78.2 - Mixed hyperlipidemia Lipid Panel 04/26/24 E78.2 - Mixed hyperlipidemia Referrals 2 Counseling Referral F33.1 - Major depressive disorder, recurrent, moderate Medications: New 2 meloxicam 15 mg PO DAILY 15 days 15 tabs 0RF L03.011 - Cellulitis of right finger
[2024-04-26 13:54] VITALS: BP 124/82; PULSE 92; O2SAT 99; BMI 28.7
== END 2024-04-26 14:37 | disposition home or self-care (01) ==
PROVIDERS: PCP Physician Assistant; Visit Provider Physician Assistant
DX: Z00.00 Encounter for general adult medical examination without abnormal findings (principal); L03.011 Cellulitis of right finger; F33.1 Major depressive disorder, recurrent, moderate; E78.2 Mixed hyperlipidemia; F17.200 Nicotine dependence, unspecified, uncomplicated; D72.829 Elevated white blood cell count, unspecified

== ENCOUNTER → 2024-04-26 13:43 | Outpatient (BNVA) | payer MEDICARE, MEDICAID, SELFPAY | PROVIDERS: PCP Physician Assistant; Visit Provider Physician Assistant | DX: Z00.01 Encounter for general adult medical examination with abnormal findings (principal); L03.011 Cellulitis of right finger; E78.2 Mixed hyperlipidemia; D72.829 Elevated white blood cell count, unspecified; F33.1 Major depressive disorder, recurrent, moderate; F17.200 Nicotine dependence, unspecified, uncomplicated; Z71.6 Tobacco abuse counseling | CPT/HCPCS: 99396 ==

== ENCOUNTER 2024-06-17 08:56 | Emergency (ER) | payer MEDICARE, MEDICAID, SELFPAY ==
[2024-06-17 09:05] VITALS: BP 116/62; PULSE 95; RESP 16; TEMP 36; O2SAT 100; BMI 26.5
--- OUTSIDE RECORDS SUMMARY | 2024-06-17 10:31 | XMS_ITS | Patient Health Record ---
Author Organization [facility] Address [address] [place] [address] Care Team Providers Care Electro Mechanical Solar Technician Name Role Phone SHAINTA JONES Primary Care Provider Wade waters Allergies [...] Risk Notes Problem Lumbosacral spondylosis without myelopathy ([id number]) Spondylosis without myelopathy or radiculopathy, lumbar region (M47.816) Active confirmed Plan Of Treatment No Information Insurance Providers Payer Name Payer Address Payer Phone Subscriber Number Group Number Insured Name Patient Relationship to Insured Coverage Start Date Coverage End Date Medicare B [facility] [address] [place]RE[place] [id number] RAMIREZ RILEYE Self - patient is the insured [employer] Medicaid of [place] [address] [place] [address] [id number] RAMIREZ RILEYE Self - patient is the [...]
--- NOTE | 2024-06-17 11:22 | ED.GENADULT ---
HPI - General Adult General Chief complaint: Skin/Abscess/Foreign Body Stated complaint: ? Infection Finger R Hand Time Seen by Provider: 06/17/24 10:48 Source: patient Mode of arrival: ambulatory Limitations: no limitations History of Present Illness ED Provider: Venancio Kasper HPI narrative: 49-year-old female history of migraine, major depressive disorder, bronchitis, diverticulitis, presents to ED for 2 complaints. First complaint is re-evaluation of right middle finger cellulitis secondary complaint is STI testing. Patient states she was admitted month ago for right middle finger cellulitis with red streaks going to her arm lymphangitis which required admission and IV antibiotics. Patient states she was discharged with no red streaks and finger was improving and then states the past 2 days she started has slight pain in middle finger with some redness around finger patient denies any fingers stiffness, red streaks going up the arm, pus discharge, foul odor, chest pain, or shortness of breath. Patient was STI testing you to being sexually active with a boyfriend who she found out was cheating and not using protection. Patient denies any genitourinary symptoms. Requesting STI testing. Related Data Home Medications ?Medication ?Instructions ?Recorded ?Confirmed butalbital 50 mg-acetaminophen 325 1 cap PO Q6H PRN Headaches 02/26/23 04/26/24 mg-caffeine 40 mg-codeine 30 mg cap paroxetine HCl 20 mg tablet 20 mg PO DAILY PRN Mood 02/26/23 04/26/24 valacyclovir 500 mg tablet 500 mg PO DAILY 02/17/24 04/26/24 cyclobenzaprine 10 mg tablet 10 mg PO BID PRN muscle spasm 04/19/24 04/26/24 multivitamin 1 tab PO DAILY 04/19/24 04/26/24 prednisone 20 mg tablet See Taper PO DAILY 04/19/24 04/26/24 Previous Rx's ?Medication ?Instructions ?Recorded acetaminophen 500 mg tablet 500 mg PO Q6H PRN fever #60 tabs 04/23/23 gabapentin 300 mg capsule 300 mg PO BID 30 days #60 caps 01/05/24 ibuprofen 800 mg tablet 800 mg PO TID PRN pain 30 days #90 03/08/24 tabs cephalexin 500 mg capsule 500 mg PO TID #42 caps 04/22/24 docusate sodium 100 mg capsule 100 mg PO DAILY PRN constipation 04/22/24 (Colace) #30 caps fluticasone propionate 50 1 spray intranasal BID #16 grams 04/22/24 mcg/actuation nasal spray,suspension guaifenesin 100 mg/5 mL oral liquid 100 mg (5 mL) PO Q6H PRN cough 04/22/24 #473 mL loratadine 10 mg tablet 10 mg PO DAILY #10 tabs 04/22/24 meloxicam 15 mg tablet 15 mg PO DAILY 15 days #15 tabs 04/26/24 cephalexin 500 mg capsule 500 mg PO Q12H 7 days #14 caps 06/17/24 doxycycline hyclate 100 mg capsule 100 mg PO BID 7 days #14 caps 06/17/24 Allergies Allergy/AdvReac Type Severity Reaction Status Date / Time topiramate [From TOPAMAX] Allergy Mild NAUSEA & Verified 06/17/24 09:06 VOMITING divalproex sodium AdvReac Unknown NAUSEA & Verified 06/17/24 09:06 [From DEPAKOTE] VOMITING Review of Systems Review of Systems: right middle finger pain Yes all other systems are reviewed and are negative [facility] Past Medical History Medical History Wrist pain, left Ankle pain, left Obesity Restless leg syndrome Migraine Anxiety Fibromyalgia Surgical History H/O rectal polypectomy History of surgery History of hernia repair History of wisdom tooth extraction History of tonsillectomy History of umbilical hernia repair H/O LEEP History of colectomy Family History Family History Father CVD (cardiovascular disease) Myocardial infarction Mother Chronic mental illness Dementia Myocardial infarction, Onset Age: 40 Seizure Sister In good health Son In good health Maternal Aunt Breast CA Paternal Aunt Breast CA Other Mental health disorder Social History Social History Household Members Other:: roommate Housing: Other Housing Other:: lives in nursing home Do you presently have visiting nurse or other home services: No Alcohol intake: current Alcohol intake frequency: does not drink Patient Tobacco Use Status: Current everyday Tobacco user Tobacco use type: Cigarette Cigarette Packs Per Day: 1 Cigarettes Per Day: 20.0 Years Smoked: 15 e-Cigarette/Vaping Use: Never Used Second Hand Smoke Exposure: Yes Substance Use Type: Marijuana Advance Directives: Yes Advance Directives on File: Yes Advance Directives Date on File: 09/17/22 Do you have a plan to hurt others: No Plan service: No Current occupational status: disabled Cognitive needs: No Hearing needs: No Vision needs: No Physical Exam ED Vital Signs: Vital Signs - 24 hr 06/17/24 09:05 06/17/24 14:46 06/17/24 14:52 Temperature 96.8 F 97.9 F 97.9 F Pulse Rate 95 95 95 Respiratory Rate 16 16 16 Blood Pressure 116/62 126/65 126/65 Pulse Oximetry 100 99 99 Oxygen Delivery Method Room Air Room Air BMI result Body Mass Index 26.5 Const General: cooperative, healthy appearing, comfortable, no acute distress, well developed, alert, awake and Physically active Orientation/consciousness: patient oriented x3 HENMT Head: Yes normal to inspection, Yes No palpable skull fracture present, Yes normocephalic, Yes atraumatic and No abrasion Eyes General: appearance normal, both eyes and all related structures Neck Neck: Yes normal visual inspection, Yes full ROM, Yes no lymphadenopathy, Yes no meningeal signs, Yes trachea midline, Yes supple, No anterior neck swelling and No tender Chest Chest palpation & inspection: normal inspection of the chest and normal palpation of entire chest wall Resp Effort & Inspection: normal respiratory effort and able to speak in complete sentences Auscultation: clear to auscultation bilaterally Cardio Jugular venous distension: no JVD Heart sounds: S1 normal heart sound present and S2 normal heart sound present GI Inspection: Yes normal to inspection Palpation (GI): Soft to palpation, not firm, nontender, no guarding and not rigid General: Yes no CVA tenderness Back/Spine/Pelvis Back: no CVA tenderness and No back tenderness Skin General skin exam: no rashes or lesions noted, elasticity normal and turgor normal Neuro General: patient oriented x3, gait normal, tone normal, moves all extremities, Normal light touch and pain sensation, no meningeal signs, no focal motor deficits, CN's II-XI intact bilaterally and normal sensation to monofilament Extrem Other: Finger negative for fluctuance, pus discharge, foul odor, red streaks going down arm, de Quervain sign, bluish black discoloration deformity. Positive for slight erythema. Patient has complete range of motion of finger rest of extremities. Rest of extremity normal. Motor/neuro /vascular exam intact. Psych Appearance: grossly normal, well kempt and not disheveled Medications Administered Discontinued Medications Generic Name Dose Route Start Last Admin Trade Name Freq PRN Reason Stop Dose Admin Ceftriaxone Sodium 500 mg/ 0 mg 06/17/24 13:50 06/17/24 14:47 Lidocaine HCl 1 ml IM 06/17/24 13:51 1 kit ONCE ONE Administration Medical Decision Making Medical Decision Making [facility] Narrative: 49-year-old female presents to ED for 2 complaints of right middle finger evaluation and STI testing. Patient refuse pelvic exam prefers to do self swab. Will test for chlamydia gonorrhea, BV, and trich. RPR will be ordered. Patient informed HIV hepatitis testing is not done in the ED should presents at [facility] or primary care provider for follow-up. Patient is last exposure as a week ago. Finger does not look overly infected not suspecting osteomyelitis, necrotizing fasciitis, compartment syndrome, arterial occlusion, DVT, lymphangitis, or drainable abscess. 1:23pm: Patient requesting to seen attending to re-evaluate finger. Patient is awaiting to be seen by Dr. Camarena 1:49pm: Patient is seen by Dr. Mccoy who also evaluated patient who states patient does not need any incision and drainage or IV antibiotics. She states patient can be discharged with p.o. antibiotics. Patient given empiric treatment for STI. Differential Diagnosis Differential Diagnoses: The differential diagnosis associated with the presentation includes ( Cellulitis STI) Admission/Observation Consideration of admission/observation: Escalation of care including admission/observation considered Lab Data [facility] Lab Attestation statement: I reviewed the patient's lab results. Labs: Lab Results 06/17/24 06/17/24 Range/Units 11:51 12:36 Urine Color Yellow Urine Appearance Clear Urine pH 7.5 (5.0-9.0) Ur Specific [place] <= 1.005 (1.005-1.025) Urine Protein Negative (Neg-Trace) mg/dL Urine Glucose (UA) Negative (Negative) mg/dL Urine Ketones Negative (Negative) mg/dL Urine Blood Negative (Negative) Urine Nitrite Negative (Negative) Ur Leukocyte Esterase Negative (Negative) Urine Test NEGATIVE (NEGATIVE) T.pallidum Ab (EIA) Nonreactive (Nonreactive) Chlam trachomat DNA PCR NOT DETECTED (Not Detect.) N.gonorrhoeae DNA (PCR) NOT DETECTED (Not Detect.) T. vaginalis (PCR) NOT DETECTED (Not Detect) Bact vaginosis (PCR) NEGATIVE (Negative) C. krusei/glabrata (PCR) NOT DETECTED (Not Detect) Jeni group (PCR) NOT DETECTED (Not Detect) Independent Historian Clinical information obtained from an independent historian. History obtained from or confirmed by: Other (patient) External Record Review External record reviewed: Other (prior vistis) Prescription Management I considered prescription management with: Antibiotic Discharge Plan Discharge Clinical Impression: Cellulitis Patient Disposition: Home, Self-Care Instructions: Safe Sex Practices (ED), Cellulitis (ED), Warm Compress or Soak (ED) Additional Instructions: recommend follow-up with primary care provider for re-evaluation of finger and also testing for HIV and hepatitis. HIV hepatitis testing can be done at [facility]. Return to the ED immediately for finger redness, red streaks going up your arm, bluish black discoloration, severe pain, fever, chills, vaginal discharge, vaginal bleeding, vaginal lesions, back pain, flank pain, abdominal pain, nausea, vomiting, fever, chills, or any other concerning symptoms. Prescriptions: New cephalexin 500 mg capsule 500 mg PO Q12H 7 Days Qty: 14 0RF doxycycline hyclate 100 mg capsule 100 mg PO BID 7 Days Qty: 14 0RF No Action gabapentin 300 mg capsule 300 mg PO BID 30 Days Qty: 60 6RF ibuprofen 800 mg tablet 800 mg PO TID PRN (Reason: pain) 30 Days Qty: 90 3RF fluticasone propionate 50 mcg/actuation spray,suspension 1 spray intranasal BID Qty: 16 0RF valacyclovir 500 mg tablet 500 mg PO DAILY cyclobenzaprine 10 mg tablet 10 mg PO BID PRN (Reason: muscle spasm) multivitamin Tablet 1 tab PO DAILY prednisone 20 mg tablet See Taper PO DAILY Taper: Prednisone 60 mg daily for 2 Days and 0 Hour 40 mg daily for 2 Days and 0 Hour 20 mg daily for 2 Days and 0 Hour cephalexin 500 mg capsule 500 mg PO TID Qty: 42 0RF guaifenesin 100 mg/5 mL Liquid 100 mg PO Q6H PRN (Reason: cough) Qty: 473 0RF loratadine 10 mg Tablet 10 mg PO DAILY Qty: 10 0RF docusate sodium [Colace] 100 mg capsule 100 mg PO DAILY PRN (Reason: constipation) Qty: 30 0RF acetaminophen 500 mg tablet 500 mg PO Q6H PRN (Reason: fever) Qty: 60 0RF Rx Instructions: Take 1 tablet every 6 hours as needed for pain/fever. Do not take in combination with Fioricet. oaurkglgeg-jsctzzfqga-bbf-cod [id number] mg capsule 1 cap PO Q6H PRN (Reason: Headaches) paroxetine HCl 20 mg tablet 20 mg PO DAILY PRN (Reason: Mood) meloxicam 15 mg tablet 15 mg PO DAILY 15 Days Qty: 15 0RF Interventions: ED Discharge Assessment Last Done: 06/17/24 14:52 Discharge Date/Time: 06/17/24 14:52 Print Language: Georgian
[2024-06-17 12:04] LABS: Appearance Urine Clear; Color Urine Yellow; Glucose Urine UA Negative (Negative); Leukocyte Esterase Urine Negative (Negative); Nitrite Urine Negative (Negative); PH 7.5 (5.0-9.0); Specific Gravity - Urine <= 1.005 (1.005-1.025); UPreg QC Valid YES; Urine Blood Negative (Negative); Urine Ketones Negative (Negative); Urine Pregnancy NEGATIVE (NEGATIVE); Urine Protein Negative (Neg-Trace)
--- NOTE | 2024-06-17 12:43 | PC.NURSE ---
pt demanding to speak with an attending as pt does not believe that the PA knows what he is talking about pt making demands to have her finger drained without necessity at this time. JAZMINE Craft made aware
[2024-06-17 13:16] LABS: Syphilis Screen Nonreactive (Nonreactive)
[2024-06-17 13:43] LABS: Bacterial Vaginosis PCR NEGATIVE (Negative); Candida Group PCR NOT DETECTED (Not Detect); Candida glab krusei PCR NOT DETECTED (Not Detect); Trichomonas vaginalis PCR NOT DETECTED (Not Detect)
[2024-06-17 14:15] LABS: CT PCR NOT DETECTED (Not Detect.); NG PCR NOT DETECTED (Not Detect.)
[2024-06-17 14:46] VITALS: BP 126/65; PULSE 95; RESP 16; TEMP 36.6; O2SAT 99
[2024-06-17] MEDS: cefTRIAXone sodium 500 MG, Lidocaine HCl 1 % MPF 1 ML IM (14:47)
[2024-06-17 14:52] VITALS: BP 126/65; PULSE 95; RESP 16; TEMP 36.6; O2SAT 99
== END 2024-06-17 14:52 | disposition home or self-care (01) ==
PROVIDERS: Physician Assistant; Emergency Provider Emergency Medicine; PCP Physician Assistant
DX: L03.011 Cellulitis of right finger (principal); Z20.2 Contact with and (suspected) exposure to infections with a predominantly sexual mode of transmission; F17.210 Nicotine dependence, cigarettes, uncomplicated; Z79.899 Other long term (current) drug therapy
CPT/HCPCS: 0352U; 36415; 81003; 81025; 86780; 87491; 87591; 96372; 99283; 99284; J0696; J2003

== ENCOUNTER 2024-06-28 15:36 | Outpatient (AMB) | payer MEDICARE, MEDICAID, SELFPAY ==
[2024-06-28 15:50] VITALS: BP 112/78; PULSE 99; TEMP 36.4; O2SAT 97
--- NOTE | 2024-06-28 15:50 | AM.OFFWIN_ITS ---
Intake Vital Signs 06/28/24 15:50 Weight 160 lb BP 112/78 Blood Pressure Location Lt brachial Position Sitting Pulse 99 Pulse Source Pulse Oximeter Temp 97.6 F Temp Source Oral Pulse Oximetry (%) 97 Oxygen Delivery Method Room Air Intake Visit Reasons: EP middle finger pain/swelling Intake Note: Patient here for middle finger pain/swelling that started about 2 month ago. Patient Tobacco Use Status: Current everyday Tobacco user Allergies topiramate [From TOPAMAX] Allergy (Mild, Verified 06/28/24 15:58) NAUSEA & VOMITING divalproex sodium [From DEPAKOTE] Adverse Reaction (Unknown, Verified 06/28/24 15:58) NAUSEA & VOMITING Do you need a note to return to daycare/school/sports/work: No HPI HPI Comments History of Present Illness Details This is a 49-year-old female with a past medical history of hyperlipidemia, migraines, chronic back pain, anxiety and depression presenting for evaluation of pain in her right middle finger. Patient was hospitalized at the beginning of May 08, 2024 for a cellulitis in her right 3rd digit. Patient states the infection was lingering and she was placed back on antibiotics which included Keflex and doxycycline on June 17. Patient has completed this course of antibiotic therapy, denies having any new injury, fevers or chills but states that she has pain in the distal joint of her right 3rd digit. Patient has been taking meloxicam without relief of her discomfort. [facility] Medical History Wrist pain, left Ankle pain, left Obesity Restless leg syndrome Migraine Anxiety Fibromyalgia Surgical History H/O rectal polypectomy History of surgery History of hernia repair History of wisdom tooth extraction History of tonsillectomy History of umbilical hernia repair H/O LEEP History of colectomy Family History Father CVD (cardiovascular disease) Myocardial infarction Mother Chronic mental illness Dementia Myocardial infarction, Onset Age: 40 Seizure Sister In good health Son In good health Maternal Aunt Breast CA Paternal Aunt Breast CA Other Mental health disorder Social History Household Members Other:: roommate Housing: Other Housing Other:: lives [place] [facility] Do you presently have visiting nurse or other home services: No Alcohol intake: current Alcohol intake frequency: does not drink Patient Tobacco Use Status: Current everyday Tobacco user Tobacco use type: Cigarette Cigarette Packs Per Day: 1 Cigarettes Per Day: 20.0 Years Smoked: 15 e-Cigarette/Vaping Use: Never Used Second Hand Smoke Exposure: Yes Substance Use Type: Marijuana Advance Directives Date on File: 09/17/22 service: No Current occupational status: disabled Cognitive needs: No Hearing needs: No Vision needs: No Review of Systems Const All systems reviewed & are unremarkable except as noted in HPI and below Eyes Reports no additional complaints ENT Reports no additional complaints Card Reports no additional complaints Resp Reports no additional complaints GI Reports no additional complaints Reports no additional complaints Musc Reports arthralgias (right 3rd DIP) and Reports joint swelling Skin/Breast Reports system reviewed and no additional complaints, except as documented Neuro Reports no additional complaints Psych Reports no additional complaints Endo Reports no additional complaints Jey/Lymph Reports no additional complaints Aller/Immun Reports no additional complaints Physical Exam Vital Signs: Last Vital Signs Temp 97.6 F 06/28/24 15:50 Pulse 99 06/28/24 15:50 BP 112/78 06/28/24 15:50 Pulse Ox 97 06/28/24 15:50 Oxygen Delivery Method Room Air 06/28/24 15:50 Patient is afebrile. Const General: cooperative, comfortable, no acute distress, well developed, alert, awake and Physically active; No lethargic Nutritional Appearance: well nourished Orientation/consciousness: patient oriented x3 and No lethargic Limitations: no limitations Skin Other: Mild macular erythema overlying the dorsal surface of the right 3rd DIP with joint tenderness; no fluctuation, no induration, no exudates; there is a healing skin lesion on the medial aspect of the right 3rd DIP that is not tender to direct examination. Rashes: no rashes Wounds: no wounds Nails: normal Neuro General: patient oriented x3 Extrem Right upper extremity: Extremity exam: right hand (pain to palpation of the dorsal aspect of the right 3rd DIP ) Details: normal capillary refill and neuromotor exam normal Psych Appearance: grossly normal Mental Status: mental status grossly normal Insight: Good insight present (Psych) Judgement: Good judgement present (Psych) Assessment & Plan Assessment & Plan (1) Pain of right middle finger: Comment: There is no active cellulitis at this time however the initial laceration which occurred at the beginning of April has not yet fully healed, which is suspicious for underlying pathology. Code(s): M79.644 - Pain in right finger(s) Plan: Patient will be referred to orthopedics for ongoing management and care. No further antibiotic therapy is prescribed at this time. Orders: Referrals Orthopedics Referral M79.644 - Pain in right finger(s) Coding Level of Care Code Est Pt Level 4 (39381) Diagnoses Pain of right middle finger M79.644 Time Spent (min) 20
== END 2024-06-28 16:25 | disposition home or self-care (01) ==
LOC: HO.HMCWIC 15:36
PROVIDERS: PCP Physician Assistant
DX: M79.644 Pain in right finger(s) (principal)

== ENCOUNTER → 2024-06-28 15:36 | Outpatient (BNVA) | payer MEDICARE, MEDICAID, SELFPAY | PROVIDERS: PCP Physician Assistant; Visit Provider Physician Assistant | DX: M79.644 Pain in right finger(s) (principal) | CPT/HCPCS: 99212 ==

== ENCOUNTER 2024-07-01 09:38 | Outpatient (REF) | payer MEDICARE, MEDICAID, SELFPAY | END 2024-07-01 09:39 | disposition home or self-care (01) | LOC: HO.HOSX 09:38 | DX: M79.641 Pain in right hand (principal); S61.212D Laceration without foreign body of right middle finger without damage to nail, subsequent encounter | CPT/HCPCS: 73130; 99212 ==

== ENCOUNTER 2024-07-01 14:24 | Outpatient (AMB) | payer MEDICARE, MEDICAID, SELFPAY ==
--- NOTE | 2024-07-01 14:36 | MHC.OFFVIS ---
Intake Visit Reasons: ED f/u right middle finger pain Intake Note: Abril is a 49 year old right hand dominant female who presents today for a follow up of her emergency department visit from April 2024 for her right middle finger. Patient was referred due to initial laceration that occurred at the beginning of April not fully being healed. She reports feeling throbbing and aching pain in the right middle finger and around her cuticle area. Expresses tenderness when palpitating the area. If she is outside in the cold her symptoms exacerbate to a 10 out of 10 pain. She reports her finger has been red and purple lately that comes and goes. Patient states her laceration appears to finally be healing. Denies numbness and tingling. She assumes she is having joint pain in the right middle finger. Allergies topiramate [From TOPAMAX] Allergy (Mild, Verified 07/01/24 14:39) NAUSEA & VOMITING divalproex sodium [From DEPAKOTE] Adverse Reaction (Unknown, Verified 07/01/24 14:39) NAUSEA & VOMITING HPI HPI ED f/u right middle finger pain: Details: Patient is a 49-year-old female who presents for evaluation of right middle finger chronic pain and nonhealing wound, present since admission to the hospital in early April of this year. Patient states that since she was discharged, she has noticed this chronic wound with associated mild tenderness to palpation, and has noticed that it does not seem to be healing. The patient reports that she does remove the scab in this area whenever it starts to form. Patient denies any discharge from the area, and states that the redness that she does feel is there is nothing like it was before when she was admitted for IV antibiotics, but states she is concerned that it was not healing. The patient states that she does have pain in the area of the cuticle of the nail, but does not have active joint pain in the DIP joint of the right middle finger at this time. No other acute complaints or concerns at this time [facility] Medical History Wrist pain, left Ankle pain, left Obesity Restless leg syndrome Migraine Anxiety Fibromyalgia Surgical History H/O rectal polypectomy History of surgery History of hernia repair History of wisdom tooth extraction History of tonsillectomy History of umbilical hernia repair H/O LEEP History of colectomy Family History Father CVD (cardiovascular disease) Myocardial infarction Mother Chronic mental illness Dementia Myocardial infarction, Onset Age: 40 Seizure Sister In good health Son In good health Maternal Aunt Breast CA Paternal Aunt Breast CA Other Mental health disorder Social History Household Members Other:: roommate Housing: Other Housing Other:: lives in [place] [facility] Do you presently have visiting nurse or other home services: No Alcohol intake: current Alcohol intake frequency: does not drink Patient Tobacco Use Status: Current everyday Tobacco user Tobacco use type: Cigarette Cigarette Packs Per Day: 1 Cigarettes Per Day: 20.0 Years Smoked: 15 e-Cigarette/Vaping Use: Never Used Second Hand Smoke Exposure: Yes Substance Use Type: Marijuana Advance Directives Date on File: 09/17/22 service: No Current occupational status: disabled Cognitive needs: No Hearing needs: No Vision needs: No Physical Exam Extrem Other: Patient is alert, oriented, and in no acute distress. Neuro: Normal sensation of the tips of all digits of the right hand at this time Vascular: Cap refill brisk Pain: Patient reports very mild discomfort palpation about the area of the chronic wound of the right middle finger No pain with range of motion testing No tenderness of the DIP joint of the right middle finger with axial loading ROM: Patient is able to make a closed fist and extend all digits of the right hand fully Skin: No lacerations or abrasions. General: Wound noted on the radial aspect of the right middle finger just distal to and at the level of the DIP joints No discharge from wound at this time, appears dry It was slightly red around this wound, however this appears to be more consistent with hyperemia then cellulitis or acute infection No ecchymosis Psych: Appears grossly normal Affect normal Attitude cooperative Results Reviewed Results Reviewed: X-rays obtained in the office today and independently reviewed by me, Han Alcala PA-C, demonstrate no fracture, acute bony abnormality, or evidence of osteomyelitis or septic joint of the PIP joint of the right middle finger. Assessment & Plan Assessment & Plan (1) Laceration of right middle finger: Code(s): S61.212A - Laceration without foreign body of right middle finger without damage to nail, initial encounter Category: Medical Plan 1. Chronic wound of right middle finger Ongoing since April Patient is educated about this condition At this time, patient is informed that it does not appear that this wound is infected, although it is concerning that it has not healed yet Patient is educated that she should keep a dressing on this swelling and keep it clean and dry Patient is educated that she can wash the wound with soap and water in the sink or shower, but she should otherwise been keeping it clean,, intact, and dressed with antibiotic ointment Patient is also given a script of Augmentin Patient will follow-up in [address] Rushing for repeat wound assessment and discussion of further treatment options if indicated Patient was amenable to this plan Orders: Orders XR hand RT min 3V Today M79.641 - Pain in right hand Medications: New amoxicillin-pot clavulanate 875-125 mg 1 tab PO BID 14 tabs 0RF 7 days Coding Level of Care Code Est Pt Level 3 (81835) Diagnoses Laceration of right middle finger S61.212A
== END 2024-07-01 15:15 | disposition home or self-care (01) ==
PROVIDERS: PCP Physician Assistant
DX: S61.212A Laceration without foreign body of right middle finger without damage to nail, initial encounter (principal)
CPT/HCPCS: 99213

== ENCOUNTER 2024-07-06 10:11 | Outpatient (AMB) | payer MEDICARE, MEDICAID, SELFPAY ==
[2024-07-06 10:27] VITALS: BMI 26.5
--- NOTE | 2024-07-06 10:27 | A.OFFVIS_ITS ---
Vital Signs 07/06/24 10:27 Height 5 ft 2 in Weight 145 lb BMI 26.5 Intake Visit Reasons: OV- right middle finger pain Intake Note: Abril Gleason Chronic 49 yr old - hand dominant female presents today for a follow up visit for her wound of right middle finger Ongoing since April. States she is having pain in the cold weather and has sensitivity and at times some drainage. Last seen with Chapin Short who RX ABX and wanted patient to be further evaluated for her wound with Dr Rushing. Allergies topiramate [From TOPAMAX] Allergy (Mild, Verified 07/06/24 10:37) NAUSEA & VOMITING divalproex sodium [From DEPAKOTE] Adverse Reaction (Unknown, Verified 07/06/24 10:37) NAUSEA & VOMITING HPI HPI OV- right middle finger pain: Details: Abril is a 49 year old right hand dominant woman who presents for a chronic right middle finger infection. She first developed an infection to a wound on ~04/18/24, and was seen in the ED on 04/19/24 & 04/23/24 before being admitted for IV Abx. Her infection improved and she was discharged. She was seen again in the ED on 06/17/24 concerned about a possible recurrent infection. The wound was not draining, and a photo was taken and is in the ED note. She had been placed on oral antibiotics and discharged. She was seen by JAZMINE Short on 07/01/24 and given PO Augmentin. She complains of pain & redness to her right middle finger DIP joint. She still has some tenderness, and is concerned.. She denies having any discharge. She lives in a alf at this time. COUNT [facility]CLUD[facility] Medical History Wrist pain, left Ankle pain, left Obesity Restless leg syndrome Migraine Anxiety Fibromyalgia Surgical History H/O rectal polypectomy History of surgery History of hernia repair History of wisdom tooth extraction History of tonsillectomy History of umbilical hernia repair H/O LEEP History of colectomy Family History Father CVD (cardiovascular disease) Myocardial infarction Mother Chronic mental illness Dementia Myocardial infarction, Onset Age: 40 Seizure Sister In good health Son In good health Maternal Aunt Breast CA Paternal Aunt Breast CA Other Mental health disorder Social History Household Members Other:: roommate Housing: Other Housing Other:: lives in alf Do you presently have visiting nurse or other home services: No Alcohol intake: current Alcohol intake frequency: does not drink Patient Tobacco Use Status: Current everyday Tobacco user Tobacco use type: Cigarette Cigarette Packs Per Day: 1 Cigarettes Per Day: 20.0 Years Smoked: 15 e-Cigarette/Vaping Use: Never Used Second Hand Smoke Exposure: Yes Substance Use Type: Marijuana Advance Directives Date on File: 09/17/22 service: No Current occupational status: disabled Cognitive needs: No Hearing needs: No Vision needs: No Review of Systems Const All systems reviewed & are unremarkable except as noted in HPI and below Physical Exam Vital Signs: BMI result Body Mass Index 26.5 Const General: no acute distress and alert Orientation/consciousness: patient oriented x3 Neuro General: patient oriented x3 Extrem Other: Evaluation of Right Upper Extremity: The patient is alert, oriented, and in no acute distress Neuro: Median, Ulnar, Radial nerves motor and sensory intact and sensation is normal to the tips of all digits Vascular: Cap refill brisk ROM: She can make a tight fist and extend all her digits without pain, including the middle finger No pain with axial loading of the D IP joint Mild tenderness to the radial aspect of the DIP joint There is a small ~2mm skin opening on the dorsal radial aspect of the middle finger DIP joint. This appears to be a healing chronic wound that has not fully closed. This appears to be healing & ~1/3 the size it was when compared to pictures from the ED note from 06/17/24. No drainage or fluctuance. Radiographs: 3 views of the right hand, with attention to the middle finger, from 07/01/24 were reviewed by me today in clinic. They show no fractures, dislocations, or evidence of osteomyelitis. Psych Appearance: grossly normal Affect: normal affect Attitude: cooperative Assessment & Plan Assessment & Plan (1) Laceration of right middle finger: Code(s): S61.212A - Laceration without foreign body of right middle finger without damage to nail, initial encounter Category: Medical (2) Pain of right middle finger: Comment: There is no active cellulitis at this time however the initial laceration which occurred at the beginning of April has not yet fully healed, which is suspicious for underlying pathology. Code(s): M79.644 - Pain in right finger(s) Category: Medical Plan Assessment & Plan: 1. Right middle finger wound, This appears to be healing, with an ~2mm opening on the radial aspect of the D IP joint S/P cellulitis from ~04/18/24 Her wound is continuing to heal, no acute worsening of the infection, no drainage I educated her about this condition This appears to be healing well, if slowly, and there is no active drainage or evidence of infection No evidence of osteomyelitis seen on radiographs I recommend wound care, and she is in agreement I explained the signs and symptoms of infection, if the patient develops any new or worsening erythema, drainage, pain, or warmth they should contact the clinic or attend the ED. She will apply Abx ointment and a light dressing daily while this is healing She should limit or avoid any activities which would cause her to get dirty, and she should wash her hands daily with soap & water She will follow up in 3 weeks for a wound check, this can be done with JAZMINE Short Scrshira for Christy Rushing MD by Juan C Godinez, medical officer psychiatry, on 07/06/24 at 10:50 AM, EST. Coding Level of Care Code Est Pt Level 3 (24449) Diagnoses Laceration of right middle finger S61.212A Pain of right middle finger M79.644
== END 2024-07-06 11:05 | disposition home or self-care (01) ==
PROVIDERS: PCP Physician Assistant; Visit Provider Orthopaedic Surgery
DX: S61.212A Laceration without foreign body of right middle finger without damage to nail, initial encounter (principal); M79.644 Pain in right finger(s)
CPT/HCPCS: 99213

== ENCOUNTER → 2024-07-06 10:11 | Outpatient (BNVA) | payer MEDICARE, MEDICAID, SELFPAY | PROVIDERS: PCP Physician Assistant; Visit Provider Orthopaedic Surgery | DX: S61.212D Laceration without foreign body of right middle finger without damage to nail, subsequent encounter (principal); M79.644 Pain in right finger(s) | CPT/HCPCS: 99212 ==

== ENCOUNTER 2024-07-27 10:18 | Outpatient (AMB) | payer MEDICARE, MEDICAID, SELFPAY ==
--- NOTE | 2024-07-27 10:21 | A.OFFVIS_ITS ---
Vital Signs 07/27/24 10:23 Height 5 ft 2 in Weight 145 lb BMI 26.5 Intake Visit Reasons: OV-3 WK F/U right middle finger pain Intake Note: Abril vasquez is a 49 year old female who present today for a follow up of her right middle finger pain. Patient reports that she is having continued pain and swelling of the right middle finger. She thinks that it is starting to affect her nail bed as well. Denies numbness and tingling. She is taking Tylenol and Meloxicam for her pain. Allergies topiramate [From TOPAMAX] Allergy (Mild, Verified 07/06/24 10:37) NAUSEA & VOMITING divalproex sodium [From DEPAKOTE] Adverse Reaction (Unknown, Verified 07/06/24 10:37) NAUSEA & VOMITING HPI HPI OV-3 WK F/U right middle finger pain: Details: Abril vasquez is a 49 year old female who present today for a follow up of her right middle finger chronic infection. Patient reports that she is having continued pain and swelling of the right middle finger. She thinks that it is starting to affect her nail bed as well. Denies numbness and tingling. She is taking Tylenol and Meloxicam for her pain. She first developed an infection to a wound on ~04/18/24, and was seen in the ED on 04/19/24 & 04/23/24 before being admitted for IV Abx. Her infection improved an d she was discharged. She was seen again in the ED on 06/17/24 concerned about a possible recurrent infection. The wound was not draining, and a photo was taken and is in the ED note. She had been placed on oral antibiotics and discharged. She was seen by JAZMINE Short on 07/01/24 and given PO Augmentin. [facility] Medical History Wrist pain, left Ankle pain, left Obesity Restless leg syndrome Migraine Anxiety Fibromyalgia Surgical History H/O rectal polypectomy History of surgery History of hernia repair History of wisdom tooth extraction History of tonsillectomy History of umbilical hernia repair H/O LEEP History of colectomy Family History Father CVD (cardiovascular disease) Myocardial infarction Mother Chronic mental illness Dementia Myocardial infarction, Onset Age: 40 Seizure Sister In good health Son In good health Maternal Aunt Breast CA Paternal Aunt Breast CA Other Mental health disorder Social History Household Members Other:: roommate Housing: Other Housing Other:: lives in nursing home Do you presently have visiting nurse or other home services: No Alcohol intake: current Alcohol intake frequency: does not drink Patient Tobacco Use Status: Current everyday Tobacco user Tobacco use type: Cigarette Cigarette Packs Per Day: 1 Cigarettes Per Day: 20.0 Years Smoked: 15 e-Cigarette/Vaping Use: Never Used Second Hand Smoke Exposure: Yes Substance Use Type: Marijuana Advance Directives Date on File: 09/17/22 service: No Current occupational status: disabled Cognitive needs: No Hearing needs: No Vision needs: No Review of Systems Const All systems reviewed & are unremarkable except as noted in HPI and below Physical Exam Vital Signs: BMI result Body Mass Index 26.5 Extrem Other: Patient is alert, oriented, and in no acute distress. Neuro: Normal sensation of the tips of all digits of the right hand at this time Vascular: Cap refill brisk Pain: Tenderness to palpation about the area of the chronic wound of the right middle finger No pain with range of motion testing No tenderness of the DIP joint of the right middle finger with axial loading ROM: Patient is able to make a closed fist and extend all digits of the right hand fully Skin: No lacerations or abrasions. General: Wound noted on the radial aspect of the right middle finger just distal to and at the level of the DIP joints, has closed since previous evaluation No discharge from wound at this time, appears dry There was noted to be some surrounding erythema around this closed wound No ecchymosis Psych: Appears grossly normal Affect normal Attitude cooperative Assessment & Plan Assessment & Plan (1) Laceration of right middle finger: Code(s): S61.212A - Laceration without foreign body of right middle finger without damage to nail, initial encounter Category: Medical Plan 1. Chronic wound of right middle finger Ongoing since April Appears closed at Patient is educated about this condition Due to surrounding erythema of the closed wound, patient was prescribed a 10 day course of Augmentin for prophylaxis against any potential developing cellulitis No evidence of any underlying abscess or other chronic issues X-rays from 07/12 do not demonstrate evidence of osteomyelitis Patient will follow-up in 1 week with me for repeat wound assessment and discussion of further treatment options if indicated Patient was amenable to this plan Medications: New amoxicillin-pot clavulanate 875-125 mg 1 tab PO BID 20 tabs 0RF 10 days Coding Level of Care Code Est Pt Level 3 (16417) Diagnoses Laceration of right middle finger S61.212A
[2024-07-27 10:23] VITALS: BMI 26.5
== END 2024-07-27 11:23 | disposition home or self-care (01) ==
PROVIDERS: PCP Physician Assistant
DX: S61.212A Laceration without foreign body of right middle finger without damage to nail, initial encounter (principal)
CPT/HCPCS: 99213

== ENCOUNTER → 2024-07-27 10:18 | Outpatient (BNVA) | payer MEDICARE, MEDICAID, SELFPAY | PROVIDERS: PCP Physician Assistant | DX: S61.212D Laceration without foreign body of right middle finger without damage to nail, subsequent encounter (principal) | CPT/HCPCS: 99212 ==

== ENCOUNTER 2024-08-01 12:12 | Outpatient (AMB) | payer MEDICARE, MEDICAID, SELFPAY ==
--- NOTE | 2024-08-01 13:17 | AM.OFFWIN_ITS ---
Intake Vital Signs 08/01/24 13:33 Height 5 ft 2 in Weight 161 lb BMI 29.4 BP 100/68 Blood Pressure Location Lt brachial Position Sitting Pulse 96 Pulse Source Pulse Oximeter Temp 98.3 F Temp Source Oral Pulse Oximetry (%) 96 Oxygen Delivery Method Room Air Intake Visit Reasons: EP-mid back & lower back pain, ?norovirus Intake Note: Pt is here today c/o mid back pain and lower pain back: no cough but fatigue Patient Tobacco Use Status: Current everyday Tobacco user Allergies topiramate [From TOPAMAX] Allergy (Mild, Verified 08/01/24 13:17) NAUSEA & VOMITING divalproex sodium [From DEPAKOTE] Adverse Reaction (Unknown, Verified 08/01/24 13:17) NAUSEA & VOMITING HPI HPI Comments History of Present Illness Details History of Present Illness - The patient is a 49-year-old female pr esenting with symptoms suggestive of viral gastroenteritis, potentially due to Norovirus exposure, which has also affected family members. Symptoms began with nausea and a single episode of diarrhea. Her gastrointestinal symptoms led to diminished food intake and potential dehydration over the past weekend. - Additionally, the patient has chronic back pain, initially mid-back and radiating to the right hip and buttocks. The pain's origin is unclear, but it is exacerbated to the point that mobility is hindered. Previously, she has used lidocaine patches and medications like lidocaine patches and Gabapentin without significant relief. 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 Pt has follow up with Ortho hand in 2 days. Physical Exam General: Cooperative, healthy appearing, comfortable, no acute distress and well developed Orientation: Patient oriented x3 Limitations: No limitations Head: Normal to inspection Ears: Hearing grossly normal bilaterally Nose: Normal external nose present Face and sinus: Normal facial exam Eyes: Appearance normal, both eyes and all related structures Neck: Normal visual inspection and Yes full ROM Respiratory: Normal respiratory effort and able to speak in complete sentences. Skin: No rashes or lesions noted Neuro: Patient oriented x3 Extremities: Normal to inspection [facility] Medical History Wrist pain, left Ankle pain, left Obesity Restless leg syndrome Migraine Anxiety Fibromyalgia Surgical History H/O rectal polypectomy History of surgery History of hernia repair History of wisdom tooth extraction History of tonsillectomy History of umbilical hernia repair H/O LEEP History of colectomy Family History Father CVD (cardiovascular disease) Myocardial infarction Mother Chronic mental illness Dementia Myocardial infarction, Onset Age: 40 Seizure Sister In good health Son In good health Maternal Aunt Breast CA Paternal Aunt Breast CA Other Mental health disorder Social History Household Members Other:: roommate Housing: Other Housing Other:: lives in [facility] Do you presently have visiting nurse or other home services: No Alcohol intake: current Alcohol intake frequency: does not drink Patient Tobacco Use Status: Current everyday Tobacco user Tobacco use type: Cigarette Cigarette Packs Per Day: 1 Cigarettes Per Day: 20.0 Years Smoked: 15 e-Cigarette/Vaping Use: Never Used Second Hand Smoke Exposure: Yes Substance Use Type: Marijuana Advance Directives Date on File: 09/17/22 service: No Current occupational status: disabled Cognitive needs: No Hearing needs: No Vision needs: No Review of Systems Const All systems reviewed & are unremarkable except as noted in HPI and below Physical Exam Vital Signs: Last Vital Signs Temp 98.3 F 08/01/24 13:33 Pulse 96 08/01/24 13:33 BP 100/68 08/01/24 13:33 Pulse Ox 96 08/01/24 13:33 Oxygen Delivery Method Room Air 08/01/24 13:33 BMI result Body Mass Index 29.4 Assessment & Plan Assessment & Plan (1) Gastrointestinal complaints: Code(s): R19.8 - Other specified symptoms and signs involving the digestive system and abdomen Plan: The patient is suspected of having viral gastroenteritis, potentially related to Norovirus exposure, meriting hydration management and dietary adjustments such as the BRAT diet. Diclofenac sodium 50 mg is prescribed for back pain management, highlighting its anti-inflammatory benefits, to be taken twice daily around the clock for the next few days before reassessing necessity based on symptom improvement. Encouraging adequate fluid intake remains a priority, and further follow-up may adjust current therapeutic directives based on symptom complexity or persistence. Patient was informed and verbally consented to the use of an ambient scribe for clinic note documentation during this visit. Medications: New diclofenac sodium 50 mg PO Q12H PRN 20 tabs 0RF pain Coding Level of Care Code Est Pt Level 3 (30969) Diagnoses Gastrointestinal complaints R19.8
[2024-08-01 13:33] VITALS: BP 100/68; PULSE 96; TEMP 36.8; O2SAT 96; BMI 29.4
== END 2024-08-01 14:12 | disposition home or self-care (01) ==
PROVIDERS: PCP Physician Assistant; Visit Provider Physician Assistant
DX: R19.8 Other specified symptoms and signs involving the digestive system and abdomen (principal)

== ENCOUNTER → 2024-08-01 12:12 | Outpatient (BNVA) | payer MEDICARE, MEDICAID, SELFPAY | PROVIDERS: PCP Physician Assistant; Visit Provider Physician Assistant | DX: R19.8 Other specified symptoms and signs involving the digestive system and abdomen (principal) | CPT/HCPCS: 99212 ==

== ENCOUNTER 2024-08-03 11:28 | Outpatient (AMB) | payer MEDICARE, MEDICAID, SELFPAY ==
--- NOTE | 2024-08-03 11:29 | MHC.OFFVIS ---
Intake Visit Reasons: OV- right middle finger pain-wound check 1WK Intake Note: Abril is a 49 year old right hand dominant female who presents today for a follow up visit and wound check of her right middle finger laceration. At her last visit on 07/27/2024 patient was prescribed antibiotics. Pt states she still has some swelling and tenderness but denies any discharge from the wound. Allergies topiramate [From TOPAMAX] Allergy (Mild, Verified 08/03/24 11:32) NAUSEA & VOMITING divalproex sodium [From DEPAKOTE] Adverse Reaction (Unknown, Verified 08/03/24 11:32) NAUSEA & VOMITING HPI HPI OV- right middle finger pain-wound check 1WK: Details: Abril vasquez is a 49 year old female who present today for a follow up of her right middle finger chronic infection. Patient reports that she is having continued pain and swelling of the right middle finger. She thinks that it is starting to affect her nail bed as well. Denies numbness and tingling. She is taking Tylenol and Meloxicam for her pain. Today, the patient reports that the antibiotics prescribed to her previous visit has been helping, and she feels that her pain, swelling, and redness have decreased PFSH Medical History Wrist pain, left Ankle pain, left Obesity Restless leg syndrome Migraine Anxiety Fibromyalgia Surgical History H/O rectal polypectomy History of surgery History of hernia repair History of wisdom tooth extraction History of tonsillectomy History of umbilical hernia repair H/O LEEP History of colectomy Family History Father CVD (cardiovascular disease) Myocardial infarction Mother Chronic mental illness Dementia Myocardial infarction, Onset Age: 40 Seizure Sister In good health Son In good health Maternal Aunt Breast CA Paternal Aunt Breast CA Other Mental health disorder Social History Household Members Other:: roommate Housing: Other Housing Other:: lives in intermediate Do you presently have visiting nurse or other home services: No Alcohol intake: current Alcohol intake frequency: does not drink Patient Tobacco Use Status: Current everyday Tobacco user Tobacco use type: Cigarette Cigarette Packs Per Day: 1 Cigarettes Per Day: 20.0 Years Smoked: 15 e-Cigarette/Vaping Use: Never Used Second Hand Smoke Exposure: Yes Substance Use Type: Marijuana Advance Directives Date on File: 09/17/22 service: No Current occupational status: disabled Cognitive needs: No Hearing needs: No Vision needs: No Physical Exam Extrem Other: Patient is alert, oriented, and in no acute distress. Neuro: Normal sensation of the tips of all digits of the right hand at this time Vascular: Cap refill brisk Pain: Tenderness to palpation about the area of the chronic wound of the right middle finger No pain with range of motion testing No tenderness of the DIP joint of the right middle finger with axial loading ROM: Patient is able to make a closed fist and extend all digits of the right hand fully Skin: No lacerations or abrasions. General: Wound noted on the radial aspect of the right middle finger just distal to and at the level of the DIP joints, has closed since previous evaluation No discharge from wound at this time, appears dry There was noted to be some surrounding erythema around this closed wound No ecchymosis Psych: Appears grossly normal Affect normal Attitude cooperative Assessment & Plan Assessment & Plan (1) Laceration of right middle finger: Code(s): S61.212A - Laceration without foreign body of right middle finger without damage to nail, initial encounter Category: Medical Plan 1. Chronic wound of right middle finger Ongoing since April Appears closed at this time Patient is seen and evaluated with Dr. Rushing a collaborative treatment plan was formed: Patient is educated about this condition Due to surrounding erythema of the closed wound, patient was prescribed a 7 day course of Augmentin for prophylaxis against any potential developing cellulitis No evidence of any underlying abscess or other chronic issues X-rays from 07/12 do not demonstrate evidence of osteomyelitis Patient will follow-up in 3 weeks with me for repeat wound assessment and discussion of further treatment options if indicated Patient was amenable to this plan Medications: Changed From amoxicillin-pot clavulanate 875-125 mg 1 tab PO BID 10 days 20 tabs 0RF To amoxicillin-pot clavulanate 875-125 mg 1 tab PO BID 14 tabs 0RF 7 days Coding Level of Care Code Est Pt Level 3 (17987) Diagnoses Laceration of right middle finger S61.212A
--- OUTSIDE RECORDS SUMMARY | 2024-08-03 13:35 | XMS_ITS | Continuity of Care Document ---
Author Organization [facility] 3rd floor Address [address] [place] [address] Care Team Providers Care Vehicle Assembler Name Role Phone SHANITA MARTIN Primary Care Provider Assessment No assessment recorded. Plan of Treatment Reminders Order Date Submit Date Provider Last Modified By Organization Details Last Modified Time Details Appointments None record ed. Lab None record ed. Referral None record ed. Procedures None record ed. Surgeries None record ed. Imaging None record ed. Medication Orders None record ed. Patient TargetsNo targets recorded. Patient InstructionsNo instructions recorded. Reason for Referral None Reported. Procedures Surgical History Date Name Laterality Status Provider Name and Address Organization Details Recorded Time 4 Cast Removal completed Mary Pederson [facility] 02/22/2024 12:07:49 4 Cast_Short Leg_11+ completed JOHN GARZA [facility] 02/18/2024 12:59:56 4 Cast Removal completed [facility] 02/18/2024 12:57:56 Imaging Results None recorded. Procedure Notes None recorded. Medical Equipment None Reported. Allergies Allergen ID Allergen Name Allergen Category Reaction Reaction Severity Criticality Documentation Date Start Date Code Code System Note Provider Name and Address Organization Details Recorded Time [id number] Topamax medicatio n Not available Not available Not available 02/15/2024 38207 3 RxNorm [facility] 11:55:06 652823 Depakote medicatio n Not available Not available Not available 02/15/2024 11730 9 RxNorm [facility] 4 11:55:10 Medications Name Sig Start Date Stop Date Status Note LastModified by Organization Details LastModified Time cyclobenzapr ine 10 mg tablet TAKE 2 TABLETS BY MOUTH DAILY AT BEDTIME NEEDED active Not Available Not Available No t Available amoxicillin 500 mg capsule TAKE 1 CAPSULE BY MOUTH THREE TIMES DAILY UNTIL ALL TAKEN active Not Available Not Available No t Available doxycycline hyclate 100 mg capsule TAKE 1 CAPSULE BY MOUTH TWICE DAILY FOR 7 DAYS active Not Available Not Available No t Available azithromycin 250 mg tablet active Not Available Not Available Not Available ibuprofen 800 mg tablet TAKE 1 TABLET BY MOUTH THREE TIMES DAILY NEEDED FOR PAIN active Not Available Not Available No t Available fluconazole 150 mg tablet TAKE 1 TABLET BY MOUTH ONCE. active Not Available Not Available Not Available meloxicam 15 mg tablet TAKE 1 TABLET BY MOUTH DAILY FOR 15 DAYS active Not Available Not Available Not Available prednisone 20 mg tablet active Not Available Not Available Not Available clonazepam 0.5 mg tablet TAKE 1 TABLET BY MOUTH EVERY DAY AT BEDTIME active Not Available Not Available No t Available valacyclovir 500 mg tablet TAKE 1 TABLET BY MOUTH TWICE DAILY FOR 5 DAYS active Not Available Not Available No t Available acetaminophe n 500 mg tablet TAKE 1 TABLET BY MOUTH EVERY 6 HOURS NEEDED FOR PAIN OR FEVER. DO NOT TAKE IN COMBINATIN WITH FIORICET. active Not Available Not Available No t Available triamcinolon e acetonide 0.1 % dental paste APPLY INSIDE MOUTH TWICE DAILY FOR 14 DAYS NEEDED FOR MOUTH IRRITATION active Not Available Not Available N ot Available cephalexin 500 mg capsule TAKE 1 CAPSULE BY MOUTH EVERY 12 HOURS FOR 7 DAYS active Not Available Not Available N ot Available paroxetine 20 mg tablet TAKE 1 TABLET BY MOUTH DAILY NEEDED active Not Available Not Available No t Available clotrimazole -betamethaso ne 1 %-0.05 % topical cream APPLY TOPICALLY TO THE AFFECTED AND SURROUNDING AREAS TWICE DAILY IN THE MORNING AND IN THE EVENING FOR 2 WEEKS active Not Available Not Available No t Available butalbital 50 mg-acetamino phen 325 mg-caffeine 40 mg-codeine 30 mg cap TAKE ONE CAPSULE BY MOUTH EVERY 6 HOURS NEEDED active Not Available Not Available No t Available oxycodone 5 mg capsule TAKE 1 CAPSULE BY MOUTH TWICE DAILY NEEDED FOR PIAN active Not Available Not Available No t Available gabapentin 300 mg capsule TAKE 1 CAPSULE BY MOUTH TWICE DAILY active Not Available Not Available No t Available diclofenac sodium 75 mg tablet,delay ed release TAKE 1 TABLET BY MOUTH TWICE DAILY AFTER A MEAL active Not Available Not Available No t Available fluticasone propionate 50 mcg/actuatio n nasal spray,suspen rod SHAKE LIQUID AND USE 1 SPRAY IN EACH NOSTRIL TWICE DAILY active Not Available Not Available Not Available amoxicillin 875 mg-potassium clavulanate 125 mg tablet TAKE 1 TABLET BY MOUTH TWICE DAILY FOR 7 DAYS active Not Available Not Available No t Available BinaxNOW COVID-19 Ag Self Test kit TEST DIRECTED TODAY active Not Available Not Available No t Available Vitals Date Recorded Body height Body mass index (BMI) Body weight Provider Name and Address Organization Details Last Updated DateTime 07/07/2024 157.48 cm 28 kg/m2 40216.63 g EDISON FERGUSON [place] [facility] 07/07/2024 13:31:06 Social History None recorded. Functional Status None recorded. Mental Status None recorded. Family History Nothing Reported. Medical History No medical history recorded. Gynecological HistoryNo gynecological history recorded. Obstetrics History GPAL:G 0 P 0 0 0 0 Past Encounters Encounter ID Performer Location Encounter Start Date Encounter Closed Date Diagnosis/Indication Diagnosis SNOMED-CT Code Diagnosis ICD10 Code Diagnosis Note [id number] [facility] 3rd floor [address] [place] [address] 07/07/2024 13:13:01 07/28/2024 11:52:44 Ankle pain 087812581 M25.579 Health Concerns Section Related Observation LastModified by Organization Detai ls LastModified Time None Recorded Concern Status LastModified by Organization Details LastModified Time None Recorded Payers Encounter Date Sequence Insurance Name Policy Number Policy Pearson Covered Member ID Pearson Member ID Guarantor Name 07/07/2024 1 [place] [employer] Abril Gonzalez [id number] Abril Gonzalez 07/07/2024 2 [place] Abril Gonzalez [id number] Abril Gonzalez Notes Date Note Type Note Provider Name and Address Organization Details Recorded Time 07/07/2024 text/html Patient seen und er the direct supervision of Dr. Gil who was available but did not see the patient.HPI: 49-year-old female presents for another recheck regarding left ankle injury that occurred on 02/05/2024. Patient has improved with therapy and ready to go back to work full duty. She denies pain today. She is back in normal shoe. Patient seen previously by Dr. Carroll. Previous CT scan read by Dr. Carroll and discussed through telemedicine appointment was negative for fractures. She was diagnosed with a bad sprain. She lives at a prison and is having difficulty getting transportation. She is a smoker. Nondiabetic.Past family, medical, social history and review of systems has been reviewed, updated and is located in the patient? s chart.PHYSICAL EXAMINATION:General: healthy appearing, in no acute distressPsych: alert and oriented x3, normal moodSkin: intact without ulceration or lesion, normal turgorLungs: respirations unlaboredCardiac: heart rate regular, normal peripheral pulsesMusculoskeletal : Her gait is normal. On seated exam, skin is intact. There is no significant swelling of the left ankle. She is nontender over the ATFL now. Range of motion of the ankle is normal. Strength is intact. Her ankle is grossly stable. There is no peroneal subluxation. She is distally neurovascularly intact.No new imagingIMPRESSION: Lateral ankle sprain, left side, date of injury 02/05/24, improvedPLAN: Recommend she continue the home exercise program for her ankle and follow-up as needed. Note provided for back to full duty work. Denice Winston PA-C [address] [facility] [address], [place], [address], [facility] - [place] [facility] 07/07/2024 14:01:30 OBGyn Episode No OBEpisode recorded.
== END 2024-08-03 12:06 | disposition home or self-care (01) ==
PROVIDERS: PCP Physician Assistant
DX: S61.212A Laceration without foreign body of right middle finger without damage to nail, initial encounter (principal)
CPT/HCPCS: 99213

== ENCOUNTER → 2024-08-03 11:28 | Outpatient (BNVA) | payer MEDICARE, MEDICAID, SELFPAY | PROVIDERS: PCP Physician Assistant | DX: S61.12 Laceration with foreign body of thumb with damage to nail (principal); X58.XXXD Exposure to other specified factors, subsequent encounter | CPT/HCPCS: 99212 ==

== ENCOUNTER 2024-08-17 10:17 | Outpatient (AMB) | payer MEDICARE, MEDICAID, SELFPAY ==
--- NOTE | 2024-08-17 10:26 | AM.OFFWIN_ITS ---
Intake Vital Signs 08/17/24 10:30 Weight 161 lb BP 130/82 Blood Pressure Location Rt brachial Position Sitting Pulse 86 Pulse Source Pulse Oximeter Temp 98 F Temp Source Oral Pulse Oximetry (%) 98 Oxygen Delivery Method Room Air Intake Visit Reasons: EP severe pain in the intestines ? Intake Note: Patient here for severe GI pain that has been present for about 2-3 days. Patient Tobacco Use Status: Current everyday Tobacco user Allergies topiramate [From TOPAMAX] Allergy (Mild, Verified 08/17/24 11:54) NAUSEA & VOMITING divalproex sodium [From DEPAKOTE] Adverse Reaction (Unknown, Verified 08/17/24 11:54) NAUSEA & VOMITING Do you need a note to return to daycare/school/sports/work: No HPI HPI Comments History of Present Illness Details Patient is a 49yo F who presents to office with abdominal pain She states unsure if similar pain in the past Hx of hernia umbilical repair, sigmoid diverticulitis, and scar tissue surgery for revision No recent surgeries; last one she states was in 2020 Abdominal pain has been present x 2-3 days Intermittent Better: nothing. States she tried to sleep on stomach with pressure helped. Worse; she can not tell. Not worse with eating or moving No fever, chills, nausea or vomiting. No diarrhea or constipation She saw GI yesterday and is in the process for testing for this reason; sees [facility] GI Pain level currently is 9.5/10 She did not take any medicine for the symptoms; on at home medications No CP or SOB She denies alcohol use or hx of pancreatitis PFSH Medical History Wrist pain, left Ankle pain, left Obesity Restless leg syndrome Migraine Anxiety Fibromyalgia Surgical History H/O rectal polypectomy History of surgery History of hernia repair History of wisdom tooth extraction History of tonsillectomy History of umbilical hernia repair H/O LEEP History of colectomy Family History Father CVD (cardiovascular disease) Myocardial infarction Mother Chronic mental illness Dementia Myocardial infarction, Onset Age: 40 Seizure Sister In good health Son In good health Maternal Aunt Breast CA Paternal Aunt Breast CA Other Mental health disorder Social History Household Members Other:: roommate Housing: Other Housing Other:: lives in skilled nursing Do you presently have visiting nurse or other home services: No Alcohol intake: current Alcohol intake frequency: does not drink Patient Tobacco Use Status: Current everyday Tobacco user Tobacco use type: Cigarette Cigarette Packs Per Day: 1 Cigarettes Per Day: 20.0 Years Smoked: 15 e-Cigarette/Vaping Use: Never Used Second Hand Smoke Exposure: Yes Substance Use Type: Marijuana Advance Directives Date on File: 09/17/22 Do you have a plan to hurt others: No Plan service: No Current occupational status: disabled Cognitive needs: No Hearing needs: No Vision needs: No Review of Systems Const Denies body aches, Denies chills, Denies fatigue and Denies fever(s) Eyes Denies change in vision ENT Denies sinus pain and Denies sore throat Card Denies chest pain and Denies dyspnea Resp Denies chest congestion, Denies cough and Denies dyspnea GI Reports abdominal pain, Denies constipation, Denies diarrhea, Denies nausea and Denies vomiting Denies dysuria and Denies urinary urgency Musc Denies myalgias Skin/Breast Denies rash Endo Denies fatigue Physical Exam Vital Signs: Last Vital Signs Temp 98 F 08/17/24 10:30 Pulse 86 08/17/24 10:30 BP 130/82 08/17/24 10:30 Pulse Ox 98 08/17/24 10:30 Oxygen Delivery Method Room Air 08/17/24 10:30 General: Non-toxic, NAD. Speaking full sentences. Able to pivot from chair to bed easily Skin: Warm dry throughout Eye: EOMI HENT: Airway patent. Uvula midline. No pharyngeal erythema or edema. No TRANSFER PROFESSOR. Bilateral canals clear. TM non-erythematous, non-bulging. No TM perforation or hemotympanum noted. Respiratory: CTA bilaterally. No wheezes, rales or rhonchi Cardiac: RRR. No murmur Abdomen: Abdomen non-distended without striae. BS present x 4. TTP epigastric region. No umbilical hernia palpated. No rebound or guarding. Negative Psoas sign Neurology: Alert. No aphasia or facial droop. Gait without abnormality Psych: Good mood and affect Assessment & Plan Assessment & Plan (1) Abdominal pain: Code(s): R10.9 - Unspecified abdominal pain Qualifiers: Abdominal location: epigastric Qualified Code(s): R10.13 - Epigastric pain Plan: Patient seen and evaluated. Her BP is elevated more than usual but there was no acute abdomen noted on exam today Pain scale is higher related than expected based on physical examination findings Discussed with pt we can not rule in/out acute abnormality from UC and that she has ongoing work up for this issue with GI but she said worse x 2-3 days and can't take the pain. Will go to to [facility] for further work up/management Patient gave verbal understanding and had no additional questions or concerns at time of discharge and she feels safe driving down and refuses ambulance All questions answered Coding Level of Care Code Est Pt Level 4 (23615) Diagnoses Epigastric pain R10.13 Abdominal location: epigastric
[2024-08-17 10:30] VITALS: BP 130/82; PULSE 86; TEMP 36.6; O2SAT 98
--- OUTSIDE RECORDS SUMMARY | 2024-08-17 12:16 | XMS_ITS | Data Portability ---
Author Organization [facility] Address [address] [place] [address] Care Team Providers Care Social Research Assistant Name Role Phone SHANITA MARTIN Primary Care Provider [phone] Assessment Encounter Date Assessment Date Assessment LastModified by Organization Details LastModified Time 03/01/2024 03/01/2024 Telemedicine Telephone Encounter Patient Location: Home Physician Location: [facility] Office [place], [place] Time spent with patient: 12 mins (including CT scan review) CHIEF COMPLAINT: Left ankle pain and swelling HISTORY OF PRESENT ILLNESS: Abril is a 49-year-old woman who I am speaking with today for CT scan review. I first met her on 02/15/2024 and we recall that she suffered a severe left ankle inversion sprain on 02/05/2024, over 3 weeks ago. She was walking down camper stairs when she suddenly lunged to the left and fell resulting in an inversion sprain. She currently lives in a retirement. She was seen at [facility] where x-rays were negative. She later saw her PCP. I casted her when I saw her because of concern for nondisplaced fractures. She has been weightbearing in a short CAM boot since 02/10/2024. Her pain is localized to the left lateral ankle as well as the anterior ankle. She has been taking ibuprofen and Tylenol for pain. She smokes 1/2-1 pack of cigarettes per day and is not diabetic. 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 Past family, medical, social history and review of systems has been reviewed, updated and is located in the patient? s chart. PHYSICAL EXAMINATION: deferred Based on my physical exam from January 2024: General: healthy appearing, in no acute distress Psych: alert and oriented x3, normal mood Skin: intact without ulceration or lesion, normal turgor Lungs: respirations unlabored Cardiac: heart rate regular, normal peripheral pulses Musculoskeletal: Her gait is antalgic on the left. On seated exam, skin is intact. There is asymmetric swelling of the left ankle. She is tender over the left distal fibula, ATFL as well as the anterior ankle joint line and dorsal talus. Her ankle is grossly stable. There is no peroneal superficial. She is distally neurovascularly intact. X-RAYS: Previous x-rays were reviewed, demonstrating question of a subtle nondisplaced oblique Kendrick A distal fibular fracture and question of a non-displaced talar body/neck fracture visualized on lateral x-ray. Her ankle mortise is congruent without medial clear space or syndesmotic widening. CT: Her CT scan images from 02/16/2024 were independently reviewed and there is no evidence of fracture distal fibula and talar neck/body appear normal. He is a tibiotalar effusion related to her sprain. IMPRESSION: Left ankle sprain, improving PLAN: I reassured her that there are no fractures visible on her CT scan. I believe he suffered a severe ankle sprain. She is improving. I have recommended 2 more weeks in her CAM boot and she may then transition to an ASO brace, which was ordered today, for the following 2 weeks. She will follow up with us in 4 weeks for reevaluation. She was provided with a work note that she can return to work part-time beginning on 03/07/2024, alternating sitting and standing as needed. All questions were answered. She understands and agrees with this plan. This visit was a real-time Telemedicine interaction between a physician in a medical office and patient from their home. The totality of the communication of information exchanged between the physician (myself) and the patient during the course of the synchronous telemedicine service was sufficient to meet the cortez components and/or requirement of the same service when rendered via a qqhh-au-mmcf interaction. I discussed with the patient the risks and benefits of telemedicine services and the patient consented to the receipt of such telemedicine services. [email or web address] Not available 03/01/2024 12:09:05 Plan of Treatment Reminders Order Date Submit Date Provider Last Modified By Organization Details Last Modified Time Details Appointments None recorded. Lab None recorded. Referral physical therapist referral - left ankle rehab rom, stretch, strengtheni ng 2023 024 [email or web address] Not available 15:05:00 Procedures None recorded. Surgeries None recorded. Imaging None recorded. Medication Orders meloxicam 15 mg tablet 2023 024 [email or web address] [id number], [address] [place], [place], [id number], 15:05:00 meloxicam 15 mg tablet [address] [id number], [address] [place], [place], [phone], 12:11:54 Patient TargetsNo targets recorded. Patient InstructionsNo instructions recorded. Reason for Referral Physical Therapist Referral for Sprain of left ankle left ankle rehab rom, stretch, strengthening Referring Physician: Denice Winston, Orthopedic Surgery, Encounter Date: 03/31/2024 Results Created Date Observation Date Name Description Value Unit Range Abnormal Flag Note LastModifiedBy Organization Detail LastModifiedTime 02/15/20 24 02/15/2024 XR, foot, 2 view [email or web address]:/ [email or web address] ?Encry pted=s hAaTro YD8dLq bEUv6g %2BXZw aYqtaq 0bqfl% 2Fg9IQ a4ajBk vP9nXo QUaueC m3YtLR FvZlgJ JJ8mAn HZtai3 9e7917 AC0Koa HyNWaD eUC8mr 84%3D [facility]FACE [facility] [address] [facility] [address], [place], [address], 02/15/2024 11:08:00 02/15/20 24 02/15/2024 XR, foot, 2 view [email or web address]:/ [email or web address] ?Encry pted=s hAaTro YD8dLq bEUv6g %2BXZw aYqtaq 0bqfl% 2Fg9IQ a4ajBk vP9nXo QUaueC m3YtLR FvZl [place] HZtai3 5o8551 AC0Koa HyNWaD eUC8mr 84%3D INTERFACE [facility] [address], [place], [address], 02/15/2024 11:08:02 02/15/20 24 02/15/2024 XR, ankle , 3 or more view http:/ [email or web address] ?Encry pted=s hAaTro YD8dLq bEUv6g %2BXZw aYqtaq 0bqfl% 2Fg9IQ a4ajBk vP9nXo QUaueC m3YtLR FvZl [place] HZtai3 0e0846 AC0Koa HyNWaP eUC8mr 84%3D INTERFACE [facility] [address], [place], [address], 02/15/2024 11:10:08 02/15/20 24 02/15/2024 XR, ankle , 3 or more view http:/ [email or web address] ?Encry pted=s hAaTro YD8dLq bEUv6g %2BXZw aYqtaq 0bqfl% 2Fg9IQ a4ajBk vP9nXo QUaueC m3YtLR Zl [facility] 9h6110 AC0Koa HyNWaP eUC8mr 84%3D INTERFACE [facility] [address], [place], [address], 02/15/2024 11:10:10 02/16/[address], ankle + foot, w/o contr ast No observ ation record ed. [email or web address] Not Available 2023 15:11:58 Result Notes None recorded. Procedures Surgical History Date Name Laterality Status Provider Name and Address Organization Details Recorded Time 4 Cast Removal completed Mary Pederson [place] - [facility] 02/22/2024 12:07:49 4 Cast_Short Leg_11+ completed JOHN GARZA [facility] 02/18/2024 12:59:56 4 Cast Removal completed JOHN GARZA [facility] 02/18/2024 12:57:56 Imaging Results Imaging Date Name Status LastModified by Organiz ation Details LastModified Time 02/15/2024 XR, foot, 2 view completed INTERFACE [facility] [address], [place], [address], 02/15/2024 11:08:00 02/15/2024 XR, foot, 2 view completed INTERFACE [facility] [address], [place], [address], 02/15/2024 11:08:02 02/15/2024 XR, ankle, 3 or more view completed INTERFACE [facility] [address], [place], [address], 02/15/2024 11:10:08 02/15/2024 XR, ankle, 3 or more view completed INTERFACE [facility] [address], [place], [address], 02/15/2024 11:10:10 02/16/2024 CT, ankle + foot, w/o contrast completed Information not available 02/16/2024 15:11:58 Procedure Notes None recorded. Medical Equipment None Reported. Allergies Allergen ID Allergen Name Allergen Category Reaction Reaction Severity Criticality Documentation Date Start Date Code Code System Note Provider Name and Address Organization Details Recorded Time 893355 Topamax medicatio n Not available Not available Not available 02/15/2024 91827 3 RxNorm ANTHONY ZHANGUSC [facility] medeiros [facility] 4 11:55:06 123878 Depakote medicatio n Not available Not available Not available 02/15/2024 47277 9 RxNorm ANTHONY ZHANGUSC [facility] medeiros [place] [facility] 4 11:55:10 Medications Name Sig Start Date [...] and Address Organization Details Last Updated DateTime 03/31/2024 157.48 cm 28 kg/m2 06036.63 g Leydi Avalos [facility] 03/31/2024 11:20:03 Date Recorded Body height Body mass index (BMI) Body weight Provider Name and Address Organization Details Last Updated DateTime 05/16/2024 157.48 cm 28 kg/m2 12653.63 g [place] [facility] 05/16/2024 10:06:35 Date Recorded Body height Body mass index (BMI) Body weight Provider Name and Address Organization Details Last Updated DateTime 07/07/2024 157.48 cm 28 kg/m2 00672.63 g EDISON FERGUSON [facility] 07/07/2024 13:31:06 Social History None recorded. Functional Status None recorded. Mental Status None recorded. Family History Nothing Reported. Medical History No medical history recorded. Gynecological HistoryNo gynecological history recorded. Obstetrics History GPAL:G 0 P 0 0 0 0 Past Encounters Encounter ID Performer Location Encounter Start Date Encounter Closed Date Diagnosis/Indication Diagnosis SNOMED-CT Code Diagnosis ICD10 Code Diagnosis Note [id number] MD Yary Jones [address] [place] [address] 02/15/2024 10:54:15 03/15/2024 10:13:08 Ankle pain 148108152 M25.572 Sprain of left ankle 900 3227310 4171007 S93.402A Closed fra cture of lateral malleolus of left fibula 7591696104 3992056 S82.65XA [id number] MD Erik Jonese [address] [place] [address] 02/18/2024 12:13:19 02/18/2024 13:00:30 Fracture of ankle 64211740 S82.65XA [id number] Haris Carroll [facility] [address] [place] [address] 02/22/2024 10:57:56 02/22/2024 12:11:51 Sprain of left ankle 0057831576 0456499 S93.402A Sprain of lateral ligament of ankle joint 589454611 S93.492D [id number] Haris Carroll MD [facility] [address] [place] [address] 03/01/2024 11:09:22 03/25/2024 10:43:23 Sprain of left ankle 2369930341 2254266 S93.402A [id number] Denice Winston PA-C [facility] [address] [place] [address] 03/31/2024 11:04:57 05/05/2024 09:25:42 Sprain of left ankle 5067919820 2955890 S93.402A [id number] [facility] [address] [address] [place] [address] 05/16/2024 09:04:09 06/01/2024 20:41:20 Ankle pain 849111239 M25.959 [id number] Denice Winston PA-C [facility] [address] [place] [address] 07/07/2024 13:13:01 07/28/2024 11:52:44 Ankle pain 720916488 M25.579 Health Concerns Section Related Observation LastModified by Organization Detai ls LastModified Time None Recorded Concern Status LastModified by Organization Details LastModified Time None Recorded Advance Directives Directive None Recorded Payers Encounter Date Sequence Insurance Name Policy Number Policy Pearson Covered Member ID Pearson Member ID Guarantor Name 02/22/2024 1 [employer] (MEDICARE REPLACEMENT PPO) [id number] Linda Gonzalez [id number] Abril Shipleyon 02/22/2024 2 [place] Abril Mckeon Gonzalez [id number] Abril Shipleyon 03/01/2024 1 [employer] (MEDICARE REPLACEMENT PPO) [id number] Linda Shipleyon [id number] Abril Shipleyon 03/01/2024 2 [place] Abril Mckeon Gonzalez [id number] Abril Songahon 03/31/2024 2 [place] Abril Mckeon Gonzalez [id number] Abril Songahon 03/31/2024 1 [place] Abril Songahon [id number] Abril Songahon 05/16/2024 1 [place] [facility] Abril Mckeon Gonzalez [id number] Abril Songahon 05/16/2024 2 [place] Abril Mckeon Gonzalez [id number] Abril Shipleyon 07/07/2024 1 [place] Abril Mckeon Gonzalez [id number] Abril Shipleyon 07/07/2024 2 [place] Abril Mckeon Gonzalez [id number] Abril Gonzalez Notes Date Note Type Note Provider Name and Address Organization Details Recorded Time 03/31/2024 text/html Patient seen und er the direct supervision of Dr. Gil who was available but did not see the patient. HPI: 49-year-old female presents for recheck regarding left ankle injury that occurred on 02/05/2024. Patient seen previously by Dr. Carroll. Reports she is wearing the brace prescribed. Reports she cannot wear this in her work boot. 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 Previous CT scan read by Dr. Carroll and discussed through telemedicine appointment was negative for fractures. She was diagnosed with a bad sprain. She is a smoker. Nondiabetic.Past family, medical, social history and review of systems has been reviewed, updated and is located in the patient? s chart.PHYSICAL EXAMINATION:General: healthy appearing, in no acute distressPsych: alert and oriented x3, normal moodSkin: intact without ulceration or lesion, normal turgorLungs: respirations unlaboredCardiac: heart rate regular, normal peripheral pulsesMusculoskeletal : Her gait is antalgic on the left. On seated exam, skin is intact. There is mild asymmetric swelling of the left ankle. She is tender over the ATFL primarily. Range of motion of the ankle is normal. Strength is intact. Her ankle is grossly stable. There is no peroneal subluxation. She is distally neurovascularly intact.No new imaging IMPRESSION: Severe left ankle sprain date of injury 02/05/24PLAN: Recommending PT for ankle rehab. Patient states there is a physical therapist at the same location as her current chiropractor and she can easily access this. I will see her back in 6 to 8 weeks for a follow-up. She will continue using the brace as needed. I prescribed Mobic today. Risks and benefits reviewed and side effects discussed. Denice Winston PA-C [address] [facility] [address] [facility], [place], [address], [facility] 03/31/2024 12:44:58 05/16/2024 text/html Patient seen und er the direct supervision of Dr. Gil who was available but did not see the patient. HPI: 49-year-old female presents for another recheck regarding left ankle injury that occurred on 02/05/2024. Patient seen previously by Dr. Carroll. Previous CT scan read by Dr. Carroll and discussed through telemedicine appointment was negative for fractures. She was diagnosed with a bad sprain. Has not been attending PT since last visit or using the brace as needed. She lives at a retirement and is having difficulty getting transportation. She still complains of swelling and lateral sided ankle pain. She is a smoker. Nondiabetic.Past family, medical, [...] ankle sprain, left side, date of injury 02/05/24PLAN: Recommend the [employer] handout on ankle rehab exercises at home and use of the brace as needed. Progress in activities as tolerated. Will refill Mobic 15mg QD prn prn. Risks and benefits reviewed. Follow up arranged in 6-8 weeks Denice Winston PA-C [address] [facility] [address], [place], [address], [facility] 05/16/2024 11:15:34 07/07/2024 text/html Patient seen und er the [...] a bad sprain. She lives at a retirement and is having difficulty getting transportation. She [...] full duty work. Denice Winston PA-C [address], [place], [address], [facility] 07/07/2024 14:01:30 OBGyn Episode No OBEpisode recorded.
--- OUTSIDE RECORDS SUMMARY | 2024-08-17 12:16 | XMS_ITS | Patient Health Record ---
Author Organization [facility] Address [address] [place] [address] Care Team Providers Care Casing Crew Name Role Phone SHANITA JONES Primary Care [...] Risk Notes Problem Lumbosacral spondylosis without myelopathy ([id number]) Spondylosis without myelopathy or radiculopathy, lumbar region (M47.816) Active confirmed Plan Of Treatment No Information Insurance Providers Payer Name Payer Address Payer Phone Subscriber Number Group Number Insured Name Patient Relationship to Insured Coverage Start Date Coverage End Date Medicare B [facility] [address] [place] [phone] [id number] RAMIREZ RILEYE Self - patient is the insured [employer] of [place] [address] [place] [address] [id number] RAMIREZ RILEYE Self - patient is the [...]
== END 2024-08-17 11:12 | disposition home or self-care (01) ==
PROVIDERS: PCP Physician Assistant; Visit Provider Physician Assistant
DX: R10.13 Epigastric pain (principal)

== ENCOUNTER → 2024-08-17 10:17 | Outpatient (BNVA) | payer MEDICARE, MEDICAID, SELFPAY | PROVIDERS: PCP Physician Assistant | DX: R10.13 Epigastric pain (principal) | CPT/HCPCS: 99212 ==

== ENCOUNTER 2024-08-17 11:20 | Emergency (ER) | payer MEDICARE, MEDICAID, SELFPAY ==
[2024-08-17 11:51] VITALS: BP 123/56; PULSE 81; RESP 17; TEMP 36.1; O2SAT 98; BMI 29.4
--- NOTE | 2024-08-17 11:54 | ED_ITS ---
HPI - Abdominal Pain General Chief Complaint: Abdominal Pain Stated Complaint: Intestinal Pain Related Data Home Medications ?Medication ?Instructions ?Recorded ?Confirmed butalbital 50 mg-acetaminophen 325 1 cap PO Q6H PRN Headaches 02/26/23 04/26/24 mg-caffeine 40 mg-codeine 30 mg cap cyclobenzaprine 10 mg tablet 10 mg PO BID PRN muscle spasm 04/19/24 04/26/24 multivitamin 1 tab PO DAILY 04/19/24 04/26/24 diclofenac sodium 75 mg 75 mg PO BID 06/28/24 tablet,delayed release Previous Rx's ?Medication ?Instructions ?Recorded acetaminophen 500 mg tablet 500 mg PO Q6H PRN fever #60 tabs 04/23/23 gabapentin 300 mg capsule 300 mg PO BID 30 days #60 caps 01/05/24 ibuprofen 800 mg tablet 800 mg PO TID PRN pain 30 days #90 03/08/24 tabs diclofenac sodium 50 mg 50 mg PO Q12H PRN pain #20 tabs 08/01/24 tablet,delayed release meloxicam 15 mg tablet 15 mg PO DAILY 15 days #15 tabs 08/11/24 hyoscyamine sulfate 0.125 mg tablet 0.125 mg PO QID PRN dyspepsia #14 08/18/24 tabs Allergies Allergy/AdvReac Type Severity Reaction Status Date / Time topiramate [From TOPAMAX] Allergy Mild NAUSEA & Verified 08/18/24 10:24 VOMITING divalproex sodium AdvReac Unknown NAUSEA & Verified 08/18/24 10:24 [From DEPAKOTE] VOMITING PMFSH Past Medical History Medical History Wrist pain, left Ankle pain, left Obesity Restless leg syndrome Migraine Anxiety Fibromyalgia Surgical History H/O rectal polypectomy History of surgery History of hernia repair History of wisdom tooth extraction History of tonsillectomy History of umbilical hernia repair H/O LEEP History of colectomy Family History Family History Father CVD (cardiovascular disease) Myocardial infarction Mother Chronic mental illness Dementia Myocardial infarction, Onset Age: 40 Seizure Sister In good health Son In good health Maternal Aunt Breast CA Paternal Aunt Breast CA Other Mental health disorder Social History Social History Household Members Other:: roommate Housing: Other Housing Other:: lives in senior living Do you presently have visiting nurse or other home services: No Alcohol intake: former Patient Tobacco Use Status: Current everyday Tobacco user Tobacco use type: Cigarette Cigarette Packs Per Day: 1 Cigarettes Per Day: 20.0 Years Smoked: 15 Smoked in Last 30 Days: Yes e-Cigarette/Vaping Use: Never Used Second Hand Smoke Exposure: Yes Use of substances other than those prescribed or required for medical reasons: No Substance Use Type: Marijuana Advance Directives: Yes Advance Directives on File: Yes Advance Directives Date on File: 09/17/22 Patient : No service: No Current occupational status: disabled Cognitive needs: No Hearing needs: No Vision needs: No Physical Exam ED Vital Signs: Vital Signs - 24 hr 08/17/24 11:51 Temperature 97 F Pulse Rate 81 Respiratory Rate 17 Blood Pressure 123/56 L Pulse Oximetry 98 Oxygen Delivery Method Room Air BMI result Body Mass Index 29.4 Course Course Course Narrative: This is an RME: Additional HPI, ROS, PE not included below will be deferred to primary provider. RME assessment and note performed by: Franchesca Wong PA-C This is a 47-xiur-tpo-female, migraine, major depressive disorder, bronchitis, diverticulitis, who presents to the ER with complaints of abdominal pain x 3 days. Has had extensive abdominal surgeries and sees GI. Plan: Labs, EKG, further ER eval needed. Reevaluation(s) Reevaluation #1: Patient left without completing treatment. Medical Decision Making Lab Data 08/17/24 12:37 08/17/24 12:37 Labs: Lab Results 08/17/24 08/17/24 Range/Units 12:37 14:43 WBC 10.3 (4.8-10.8) X10*3/uL RBC 4.34 (4.20-5.50) X10*6/uL Hgb 13.6 (12.0-16.0) g/dl Hct 39.4 (37.0-47.0) % MCV 90.8 (80.0-98.0) fL MCH 31.3 (27.0-33.0) pg MCHC 34.5 (31.0-35.0) g/dl RDW 14.4 (11.0-16.0) % Plt Count 292 (160-400) X10*3/uL MPV 9.2 L (9.4-12.3) fL Immature Gran % (Auto) 0.4 (0.0-0.4) % Neut % (Auto) 68.2 (45-73) % Lymph % (Auto) 26.5 (20-40) % [place] % (Auto) 3.7 (2-11) % Eos % (Auto) 0.8 (0-4) % Baso % (Auto) 0.4 (0-2) % Lymph # (Auto) 2.7 (1.2-4.9) X10*3/uL [place] # (Auto) 0.4 (0.1-1.2) X10*3/uL Eos # (Auto) 0.1 (0.0-0.4) X10*3/uL Baso # (Auto) 0.0 (0.0-0.2) X10*3/uL Abs Immat Gran (auto) 0.04 H (0.00-0.03) X10*3/uL Absolute Neuts (auto) 7.0 (2.0-8.3) x10*3/uL Absolute Nucleated RBC 0.000 (0.0-0.012) X10*3/uL Nucleated RBC % (auto) 0.0 (0.0-0.2) /100WBC Sodium 137 (135-145) mmol/L Potassium 3.9 (3.3-5.1) mmol/L Chloride 106 (96-108) mmol/L Carbon Dioxide 25 (22-29) mmol/L Anion Gap 10 L (12-20) BUN 11 (9-16) mg/dL Creatinine 0.54 (0.5-1.4) mg/dL Estim Creat Clear Calc 116.6 Estimated GFR > 60 Random Glucose 99 (60-115) mg/dL Calcium 9.0 (8.4-10.2) mg/dL Magnesium 2.1 (1.6-2.6) mg/dL Total Bilirubin 0.2 (0.0-1.0) mg/dL Direct Bilirubin < 0.2 (0.0-0.5) mg/dL AST 20 (5-31) U/L ALT 19 (0-31) U/L Alkaline Phosphatase 55 (39-117) U/L Troponin I High Sens < 2.7 (<3.5-17.0) ng/L Total Protein 6.8 (6.5-8.0) g/dL Albumin 4.2 (3.5-5.0) g/dL Lipase 22 (8-78) U/L Urine Color Yellow Urine Appearance Clear Urine pH 7.5 (5.0-9.0) Ur Specific [place] <= 1.005 (1.005-1.025) Urine Protein Negative (Neg-Trace) mg/dL Urine Glucose (UA) Negative (Negative) mg/dL Urine Ketones Negative (Negative) mg/dL Urine Blood Negative (Negative) Urine Nitrite Negative (Negative) Ur Leukocyte Esterase Negative (Negative) Discharge Plan Discharge Clinical Impression: Abdominal pain Patient Disposition: Left W/O Completing Treatment Prescriptions: No Action gabapentin 300 mg capsule 300 mg PO BID 30 Days Qty: 60 6RF ibuprofen 800 mg tablet 800 mg PO TID PRN (Reason: pain) 30 Days Qty: 90 3RF meloxicam 15 mg tablet 15 mg PO DAILY 15 Days Qty: 15 3RF hyoscyamine sulfate 0.125 mg tablet 0.125 mg PO QID PRN (Reason: dyspepsia) Qty: 14 0RF cyclobenzaprine 10 mg tablet 10 mg PO BID PRN (Reason: muscle spasm) multivitamin Tablet 1 tab PO DAILY acetaminophen 500 mg tablet 500 mg PO Q6H PRN (Reason: fever) Qty: 60 0RF Rx Instructions: Take 1 tablet every 6 hours as needed for pain/fever. Do not take in combination with Fioricet. razfsehkjb-ykdmozgkpf-qwn-cod [id number] mg capsule 1 cap PO Q6H PRN (Reason: Headaches) diclofenac sodium 75 mg tablet,delayed release (DR/EC) 75 mg PO BID diclofenac sodium 50 mg tablet,delayed release (DR/EC) 50 mg PO Q12H PRN (Reason: pain) Qty: 20 0RF Discharge Date/Time: 08/17/24 16:39
--- NOTE | 2024-08-17 11:56 | ECG_ITS ---
Test Reason : ABD PAIN Blood Pressure : */* mmHG Vent. Rate : 75 BPM Atrial Rate : 75 BPM P-R Int : 160 ms QRS Dur : 102 ms QT Int : 398 ms P-R-T Axes : 82 89 73 degrees QTcB Int : 444 ms Normal sinus rhythm Cannot rule out Anterior infarct , age undetermined Abnormal ECG When compared with ECG of 23-Apr-2024 20:45, Questionable change in QRS axis Referred By: Franchesca Wong Electronically Signed By: MELINA CHAPIN
[2024-08-17 12:41] LABS: MANUAL DIFF FLAG NO
[2024-08-17 12:44] LABS: Basophils Percent Auto 0.4 % (0-2); Eosinophils Absolute Auto 0.1 X10*3/uL (0.0-0.4); Eosinophils Percent Auto 0.8 % (0-4); Hematocrit 39.4 % (37.0-47.0); Hemoglobin 13.6 g/dl (12.0-16.0); Imm Gran Abs Auto 0.04 X10*3/uL (0.00-0.03); Imm Gran Pct Auto 0.4 % (0.0-0.4); Lymphocytes Absolute Auto 2.7 X10*3/uL (1.2-4.9); Lymphocytes Percent Auto 26.5 % (20-40); Mean Corpuscular HGB Conc 34.5 g/dl (31.0-35.0); Mean Corpuscular Hemoglobin 31.3 pg (27.0-33.0); Mean Corpuscular Volume 90.8 fL (80.0-98.0); Mean Platelet Volume 9.2 fL (9.4-12.3); Monocytes Absolute Auto 0.4 X10*3/uL (0.1-1.2); Monocytes Percent Auto 3.7 % (2-11); Neutrophils Percent Auto 68.2 % (45-73); Platelet Count 292 X10*3/uL (160-400); Red Blood Count 4.34 X10*6/uL (4.20-5.50); Red Cell Distribution Width 14.4 % (11.0-16.0); White Blood Count 10.3 X10*3/uL (4.8-10.8)
[2024-08-17 12:57] LABS: Alanine Aminotransferase 19 U/L (0-31); Albumin Level 4.2 g/dL (3.5-5.0); Alkaline Phosphatase 55 U/L (39-117); Anion Gap 10 (12-20); Aspartate Amino Transferase 20 U/L (5-31); Bilirubin Direct < 0.2 mg/dL (0.0-0.5); Bilirubin Total 0.2 mg/dL (0.0-1.0); Blood Urea Nitrogen 11 mg/dL (9-16); Carbon Dioxide 25 mmol/L (22-29); Chloride 106 mmol/L (96-108); Creatinine Clr Calc Pharmacy 116.6; Estimated Glomerular Filt Rate > 60; Glucose Random 99 mg/dL (60-115); Lipase 22 U/L (8-78); Magnesium 2.1 mg/dL (1.6-2.6); Potassium 3.9 mmol/L (3.3-5.1); Sodium 137 mmol/L (135-145); Total Protein 6.8 g/dL (6.5-8.0)
[2024-08-17 13:05] LABS: Troponin-I High Sensitivity < 2.7 ng/L (<3.5-17.0)
[2024-08-17 15:15] LABS: Appearance Urine Clear; Color Urine Yellow; Glucose Urine UA Negative (Negative); Leukocyte Esterase Urine Negative (Negative); Nitrite Urine Negative (Negative); PH 7.5 (5.0-9.0); Specific Gravity - Urine <= 1.005 (1.005-1.025); Urine Blood Negative (Negative); Urine Ketones Negative (Negative); Urine Protein Negative (Neg-Trace)
== END 2024-08-17 16:39 | disposition left against medical advice (07) ==
PROVIDERS: Physician Assistant Medical; Emergency Provider Student in an Organized Health Care Education/Training Program; PCP Physician Assistant
DX: R10.9 Unspecified abdominal pain (principal); F17.210 Nicotine dependence, cigarettes, uncomplicated
CPT/HCPCS: 36415; 80048; 80076; 81003; 83690; 83735; 84484; 85025; 93005; 99212; 99283

== ENCOUNTER → 2024-08-17 11:56 | Outpatient (BNV) | payer MEDICARE, MEDICAID, SELFPAY | PROVIDERS: Emergency Provider Student in an Organized Health Care Education/Training Program; PCP Physician Assistant; Visit Provider Internal Medicine | DX: R94.31 Abnormal electrocardiogram [ECG] [EKG] (principal); R10.9 Unspecified abdominal pain | CPT/HCPCS: 93010 ==

== ENCOUNTER 2024-08-18 10:03 | Emergency (ER) | payer MEDICARE, MEDICAID, SELFPAY ==
--- NOTE | ~2024-08-18 | CT_ITS ---
EXAMINATION: CT ABDOMEN AND PELVIS WITH CONTRAST CLINICAL INFORMATION: Abdominal pain COMPARISON: None available. TECHNIQUE: Multidetector volumetric images were obtained from the superior aspect of the liver through the pubic symphysis following administration 85 mL of Omnipaque 350 intravenous contrast. Sagittal and coronal reformatted images were obtained on the technologist's workstation. Oral contrast: No This CT examination was performed using dose optimization techniques as appropriate, variously including the following: *Automated exposure control *Adjustment of mA and/or kV according to patient size (this includes techniques or standardized protocols for targeted exams where dose is matched to indication/reason for exam; i.e. extremities or head) *Use of iterative reconstruction technique DLP: 724 FINDINGS: LUNG BASES: There is bibasilar atelectasis. Heart size is normal. LIVER, GALLBLADDER, AND BILIARY TREE: The liver is borderline enlarged in size, normal shape, and attenuation. No focal hepatic lesion or biliary ductal dilatation is present. The gallbladder is unremarkable with no evidence of radiopaque gallstones, gallbladder wall thickening, or obvious pericholecystic inflammatory changes. PANCREAS: Unremarkable. SPLEEN: Unremarkable. ADRENAL GLANDS: Unremarkable. KIDNEYS AND URETERS: The kidneys are normal in size, shape, and attenuation. No hydronephrosis, hydroureter, or calculi seen. No perinephric stranding. BLADDER: Unremarkable. GASTROINTESTINAL TRACT: There is scattered stool and diverticuli seen in the colon without distention or diverticulitis. Anastomotic staple line in sigmoid colon is patent. The small bowel loops are normal caliber. The stomach is nondistended. ABDOMINAL WALL: Small umbilical hernia containing fat is noted. LYMPH NODES: Normal. VASCULAR: Unremarkable. PELVIC VISCERA: The uterus is anteverted and unremarkable. The right adnexa is a cystic lesion measuring 6.2 x 4.6 cm and also limits most suggestive right ovarian cyst. There is no free fluid in the cul-de-sac. OSSEOUS STRUCTURES: Degenerative disc changes with vacuum disc phenomena L4-5 disc level. No aggressive lytic or sclerotic process seen CT/CT abdomen pelvis w IV con IMPRESSION: 6.2 cm right ovarian simple cyst. Mild constipation. Anastomotic staple line in the mid sigmoid region is patent. Umbilical hernia containing intra-abdominal territorial fat. Mild hepatomegaly. Fleischner guidelines were followed. Electronically signed by: Kp Carreon MD 08/18/2024 05:35 PM EST RP
[2024-08-18 10:23] VITALS: BP 129/70; PULSE 92; RESP 18; TEMP 37; O2SAT 99; BMI 29.6
[2024-08-18 10:57] LABS: MANUAL DIFF FLAG NO
[2024-08-18 10:59] LABS: Appearance Urine Clear; Color Urine Yellow; Glucose Urine UA Negative (Negative); Leukocyte Esterase Urine Negative (Negative); Nitrite Urine Negative (Negative); PH 6.5 (5.0-9.0); Urine Blood Negative (Negative); Urine Ketones Negative (Negative); Urine Protein Negative (Neg-Trace)
[2024-08-18 11:00] LABS: Basophils Absolute Auto 0.1 X10*3/uL (0.0-0.2); Basophils Percent Auto 0.4 % (0-2); Eosinophils Absolute Auto 0.1 X10*3/uL (0.0-0.4); Eosinophils Percent Auto 0.5 % (0-4); Hematocrit 40.8 % (37.0-47.0); Hemoglobin 14.2 g/dl (12.0-16.0); Imm Gran Abs Auto 0.06 X10*3/uL (0.00-0.03); Imm Gran Pct Auto 0.4 % (0.0-0.4); Lymphocytes Absolute Auto 2.6 X10*3/uL (1.2-4.9); Lymphocytes Percent Auto 19.6 % (20-40); Mean Corpuscular HGB Conc 34.8 g/dl (31.0-35.0); Mean Corpuscular Hemoglobin 32.1 pg (27.0-33.0); Mean Corpuscular Volume 92.1 fL (80.0-98.0); Mean Platelet Volume 9.4 fL (9.4-12.3); Monocytes Absolute Auto 0.5 X10*3/uL (0.1-1.2); Neutrophils Percent Auto 75.1 % (45-73); Platelet Count 300 X10*3/uL (160-400); Red Blood Count 4.43 X10*6/uL (4.20-5.50); Red Cell Distribution Width 14.4 % (11.0-16.0); White Blood Count 13.4 X10*3/uL (4.8-10.8)
[2024-08-18 11:12] LABS: Alanine Aminotransferase 16 U/L (0-31); Albumin Level 4.2 g/dL (3.5-5.0); Alkaline Phosphatase 53 U/L (39-117); Anion Gap 10 (12-20); Aspartate Amino Transferase 19 U/L (5-31); Bilirubin Direct 0.1 mg/dL (0.0-0.5); Bilirubin Total 0.3 mg/dL (0.0-1.0); Blood Urea Nitrogen 8 mg/dL (9-16); Carbon Dioxide 26 mmol/L (22-29); Chloride 107 mmol/L (96-108); Estimated Glomerular Filt Rate > 60; Glucose Random 88 mg/dL (60-115); Lipase 26 U/L (8-78); Potassium 4.2 mmol/L (3.3-5.1); Sodium 139 mmol/L (135-145); Total Protein 6.9 g/dL (6.5-8.0)
--- NOTE | 2024-08-18 15:56 | ED_ITS ---
HPI - Abdominal Pain General Chief Complaint: Abdominal Pain Stated Complaint: Abd pain Time Seen by Provider: 08/18/24 15:21 Source: patient Mode of arrival: ambulatory Limitations: no limitations History of Present Illness HPI narrative: This is a 49 years old female presented to the emergency department with a chief complaint of abdominal pain x4 days. She was here yesterday but she did not wait to be seen because the wait was long. She has no nausea no vomiting on the diarrhea she had history of prior colon resection for diverticulitis MD elicited complaint: abdominal pain Pertinent past history: none Onset (ago): day(s) (3) Pain Consistency: constant Location: periumbilical Severity: moderate Quality: cramping Migration to: no migration Exacerbating factors: nothing Related Data Home Medications ?Medication ?Instructions ?Recorded ?Confirmed butalbital 50 mg-acetaminophen 325 1 cap PO Q6H PRN Headaches 02/26/23 04/26/24 mg-caffeine 40 mg-codeine 30 mg cap cyclobenzaprine 10 mg tablet 10 mg PO BID PRN muscle spasm 04/19/24 04/26/24 multivitamin 1 tab PO DAILY 04/19/24 04/26/24 diclofenac sodium 75 mg 75 mg PO BID 06/28/24 tablet,delayed release Previous Rx's ?Medication ?Instructions ?Recorded acetaminophen 500 mg tablet 500 mg PO Q6H PRN fever #60 tabs 04/23/23 gabapentin 300 mg capsule 300 mg PO BID 30 days #60 caps 01/05/24 ibuprofen 800 mg tablet 800 mg PO TID PRN pain 30 days #90 03/08/24 tabs diclofenac sodium 50 mg 50 mg PO Q12H PRN pain #20 tabs 08/01/24 tablet,delayed release meloxicam 15 mg tablet 15 mg PO DAILY 15 days #15 tabs 08/11/24 Allergies Allergy/AdvReac Type Severity Reaction Status Date / Time topiramate [From TOPAMAX] Allergy Mild NAUSEA & Verified 08/18/24 10:24 VOMITING divalproex sodium AdvReac Unknown NAUSEA & Verified 08/18/24 10:24 [From DEPAKOTE] VOMITING Review of Systems Constitutional: Reports no additional constitutional complaints Reports system reviewed and no additional complaints, except as documented Gastrointestinal: Reports abdominal pain PMFSH Past Medical History PMFSH Narrative: History of diverticulitis prior sigmoidal resection Medical History Wrist pain, left Ankle pain, left Obesity Restless leg syndrome Migraine Anxiety Fibromyalgia Surgical History H/O rectal polypectomy History of surgery History of hernia repair History of wisdom tooth extraction History of tonsillectomy History of umbilical hernia repair H/O LEEP History of colectomy Family History Family History Father CVD (cardiovascular disease) Myocardial infarction Mother Chronic mental illness Dementia Myocardial infarction, Onset Age: 40 Seizure Sister In good health Son In good health Maternal Aunt Breast CA Paternal Aunt Breast CA Other Mental health disorder Social History Social History Household Members Other:: roommate Housing: Other Housing Other:: lives in senior living Do you presently have visiting nurse or other home services: No Alcohol intake: former Patient Tobacco Use Status: Current everyday Tobacco user Tobacco use type: Cigarette Cigarette Packs Per Day: 1 Cigarettes Per Day: 20.0 Years Smoked: 15 Smoked in Last 30 Days: Yes e-Cigarette/Vaping Use: Never Used Second Hand Smoke Exposure: Yes Use of substances other than those prescribed or required for medical reasons: No Substance Use Type: Marijuana Advance Directives: Yes Advance Directives on File: Yes Advance Directives Date on File: 09/17/22 Patient : No service: No Current occupational status: disabled Cognitive needs: No Hearing needs: No Vision needs: No Physical Exam ED Vital Signs: Vital Signs - 24 hr 08/18/24 10:23 08/18/24 16:02 Temperature 98.6 F 97.3 F Pulse Rate 92 81 Respiratory Rate 18 16 Blood Pressure 129/70 99/51 L Pulse Oximetry 99 98 Oxygen Delivery Method Room Air Room Air BMI result Body Mass Index 29.6 Const Other: No acute distress General: cooperative and comfortable Nutritional Appearance: average body habitus Orientation/consciousness: patient oriented x3 Limitations: no limitations HENMT Head: Yes normal to inspection General nose exam: Normal external nose present Face and sinus: Yes normal facial exam Mouth: Normal oral and palatal mucosa present Throat: Yes posterior oropharynx normal Neck Neck: Yes normal visual inspection Carotids: normal carotid upstroke Chest Chest palpation & inspection: normal inspection of the chest Resp Effort & Inspection: normal respiratory effort Auscultation: clear to auscultation bilaterally Cardio Jugular venous distension: no JVD Rate: regular rate Rhythm: regular rhythm GI Inspection: Yes normal to inspection Palpation (GI): Soft to palpation, not firm, nontender and no guarding Skin General skin exam: no rashes or lesions noted and elasticity normal Rashes: no rashes Neuro General: patient oriented x3 Extrem General: Yes normal to inspection and Yes full ROM Course Reevaluation(s) Reevaluation #1: Waiting for the CT result case will be signed out to Dr. Wiley Time: 16:46 Medical Decision Making Medical Decision Making MDM Narrative: Patient presented to the emergency department complaining of lower abdominal pain we will obtain labs imaging and reassess Differential Diagnosis Differential Diagnoses: The differential diagnosis associated with the presentation includes Colitis/diverticulitis/SBO Admission/Observation Consideration of admission/observation: Escalation of care including admission/observation considered Lab Data 08/18/24 10:42 08/18/24 10:42 Labs: Lab Results 08/18/24 Range/Units 10:42 WBC 13.4 H (4.8-10.8) X10*3/uL RBC 4.43 (4.20-5.50) X10*6/uL Hgb 14.2 (12.0-16.0) g/dl Hct 40.8 (37.0-47.0) % MCV 92.1 (80.0-98.0) fL MCH 32.1 (27.0-33.0) pg MCHC 34.8 (31.0-35.0) g/dl RDW 14.4 (11.0-16.0) % Plt Count 300 (160-400) X10*3/uL MPV 9.4 (9.4-12.3) fL Immature Gran % (Auto) 0.4 (0.0-0.4) % Neut % (Auto) 75.1 H (45-73) % Lymph % (Auto) 19.6 L (20-40) % Cloud % (Auto) 4.0 (2-11) % Eos % (Auto) 0.5 (0-4) % Baso % (Auto) 0.4 (0-2) % Lymph # (Auto) 2.6 (1.2-4.9) X10*3/uL Cloud # (Auto) 0.5 (0.1-1.2) X10*3/uL Eos # (Auto) 0.1 (0.0-0.4) X10*3/uL Baso # (Auto) 0.1 (0.0-0.2) X10*3/uL Abs Immat Gran (auto) 0.06 H (0.00-0.03) X10*3/uL Absolute Neuts (auto) 10.0 H (2.0-8.3) x10*3/uL Absolute Nucleated RBC 0.000 (0.0-0.012) X10*3/uL Nucleated RBC % (auto) 0.0 (0.0-0.2) /100WBC Sodium 139 (135-145) mmol/L Potassium 4.2 (3.3-5.1) mmol/L Chloride 107 (96-108) mmol/L Carbon Dioxide 26 (22-29) mmol/L Anion Gap 10 L (12-20) BUN 8 L (9-16) mg/dL Creatinine 0.54 (0.5-1.4) mg/dL Estim Creat Clear Calc 117.0 Estimated GFR > 60 Random Glucose 88 (60-115) mg/dL Calcium 9.0 (8.4-10.2) mg/dL Total Bilirubin 0.3 (0.0-1.0) mg/dL Direct Bilirubin 0.1 (0.0-0.5) mg/dL AST 19 (5-31) U/L ALT 16 (0-31) U/L Alkaline Phosphatase 53 (39-117) U/L Total Protein 6.9 (6.5-8.0) g/dL Albumin 4.2 (3.5-5.0) g/dL Lipase 26 (8-78) U/L Urine Color Yellow Urine Appearance Clear Urine pH 6.5 (5.0-9.0) Ur Specific [place] 1.010 (1.005-1.025) Urine Protein Negative (Neg-Trace) mg/dL Urine Glucose (UA) Negative (Negative) mg/dL Urine Ketones Negative (Negative) mg/dL Urine Blood Negative (Negative) Urine Nitrite Negative (Negative) Ur Leukocyte Esterase Negative (Negative) Medications Administered Discontinued Medications Generic Name Dose Route Start Last Admin Trade Name Freq PRN Reason Stop Dose Admin Iohexol 100 ml 08/18/24 16:09 08/18/24 16:09 Iohexol 350 Mg/Ml 100 Ml Infus..Btl IV 08/18/24 16:10 85 ml ONCE ONE Administration Morphine Sulfate 4 mg 08/18/24 15:55 08/18/24 16:20 Morphine Sulfate 4 Mg/Ml Cartridge IVPUSH 08/18/24 15:56 4 mg ONCE ONE Administration Protocol Discharge Plan Discharge Clinical Impression: Abdominal pain Patient Disposition: Still a Patient Prescriptions: No Action gabapentin 300 mg capsule 300 mg PO BID 30 Days Qty: 60 6RF ibuprofen 800 mg tablet 800 mg PO TID PRN (Reason: pain) 30 Days Qty: 90 3RF meloxicam 15 mg tablet 15 mg PO DAILY 15 Days Qty: 15 3RF cyclobenzaprine 10 mg tablet 10 mg PO BID PRN (Reason: muscle spasm) multivitamin Tablet 1 tab PO DAILY acetaminophen 500 mg tablet 500 mg PO Q6H PRN (Reason: fever) Qty: 60 0RF Rx Instructions: Take 1 tablet every 6 hours as needed for pain/fever. Do not take in combination with Fioricet. zgcvzpxels-zdeublerbg-kuk-cod [id number] mg capsule 1 cap PO Q6H PRN (Reason: Headaches) diclofenac sodium 75 mg tablet,delayed release (DR/EC) 75 mg PO BID diclofenac sodium 50 mg tablet,delayed release (DR/EC) 50 mg PO Q12H PRN (Reason: pain) Qty: 20 0RF Print Language: Austrian
[2024-08-18 16:02] VITALS: BP 99/51; PULSE 81; RESP 16; TEMP 36.3; O2SAT 98
[2024-08-18] MEDS: iohexoL 350 MG/ML 100 ML INFUS..BTL IV (16:09)
[2024-08-18] MEDS: Morphine Sulfate 4 MG/ML CARTRIDGE IVPUSH (16:20)
[2024-08-18] MEDS: Morphine Sulfate 2 MG/ML CARTRIDGE IVPUSH (18:16)
[2024-08-18 18:19] VITALS: BP 110/54; PULSE 80; RESP 16; TEMP 36.3; O2SAT 98
[2024-08-18 18:35] VITALS: BP 110/54; PULSE 80; RESP 16; TEMP 36.3; O2SAT 98
--- OUTSIDE RECORDS SUMMARY | 2024-08-18 19:10 | XMS_ITS | Patient Health Record ---
Author Organization [facility] Address [address] [place] [address] Care Team Providers Care Loan And Credit Manager Name Role Phone SHANITA JONES Primary Care [...] Risk Notes Problem Lumbosacral spondylosis without myelopathy (39789908) Spondylosis without myelopathy or radiculopathy, lumbar region (M47.816) Active confirmed Plan Of Treatment No Information Insurance Providers Payer Name Payer Address Payer Phone Subscriber Number Group Number Insured Name Patient Relationship to Insured Coverage Start Date Coverage End Date Medicare B [facility] [address] [place] [phone] [id number] RAMIREZ RILEYE Self - patient is the insured [employer] of [place] [address] [place] [address] [id number] RAMIREZ RILEYE Self - patient is the [...]
--- OUTSIDE RECORDS SUMMARY | 2024-08-18 19:10 | XMS_ITS | Data Portability ---
Author Organization [facility], [facility] Address [address] [place] [address] Care Team Providers Care Marine Equipment Engineer Name Role Phone SHANITA MARTIN Primary Care Provider [phone] Assessment Encounter Date Assessment Date Assessment LastModified by Organization Details LastModified Time 03/01/2024 03/01/2024 Telemedicine Telephone Encounter Patient Location: Home Physician Location: [facility] Office [place], [place] Time spent with patient: 12 mins [...] inversion sprain. She currently lives in a care home. She was seen at [facility] where x-rays were negative. She [...] the same service when rendered via a chve-te-qgsz interaction. I discussed with the patient the [...] meloxicam 15 mg tablet 2023 024 [email or web address] [id number], [address], [place], [id number], 15:05:00 meloxicam 15 mg tablet [address] [id number], [address], [place], [id number], 12:11:54 Patient TargetsNo targets recorded. Patient InstructionsNo instructions recorded. Reason for Referral Physical Therapist Referral for Sprain of left ankle left ankle rehab rom, stretch, strengthening Referring Physician: Denice Winston, Orthopedic Surgery, Encounter Date: 03/31/2024 Results Created Date Observation Date Name Description Value Unit Range Abnormal Flag Note LastModifiedBy Organization Detail LastModifiedTime 02/15/20 24 02/15/2024 XR, foot, 2 view [email or web address] ?Encry pted=s hAaTro YD8dLq bEUv6g %2BXZw aYqtaq 0bqfl% 2Fg9IQ a4ajBk vP9nXo QUaueC m3YtLR FvZlgJ JJ8mAn HZtai3 7k5910 AC0Koa HyNWaD eUC8mr 84%3D INTERFACE [facility] [address] [facility] [address], [place], [address], 02/15/2024 11:08:00 02/15/20 24 02/15/2024 XR, foot, 2 view [email or web address] ?Encry pted=s hAaTro YD8dLq bEUv6g %2BXZw aYqtaq 0bqfl% 2Fg9IQ a4ajBk vP9nXo QUaueC m3YtLR FvZl JJ8Dallas HZtai3 5y7553 AC0Koa HyNWaD eUC8mr 84%3D INTERFACE [facility] [address], [place], [address], 02/15/2024 11:08:02 02/15/20 24 02/15/2024 XR, ankle , 3 or more view [email or web address] ?Encry pted=s hAaTro YD8dLq bEUv6g %2BXZw aYqtaq 0bqfl% 2Fg9IQ a4ajBk vP9nXo QUaueC m3YtLR FvZl JJ8Dallas HZtai3 2d4405 AC0Koa HyNWaP eUC8mr 84%3D INTERFACE [facility] [address], [place], [address], 02/15/2024 11:10:08 02/15/20 24 02/15/2024 XR, ankle , 3 or more view [email or web address] ?Encry pted=s hAaTro YD8dLq bEUv6g %2BXZw aYqtaq 0bqfl% 2Fg9IQ a4ajBk vP9nXo QUaueC m3YtLR Zl [facility] 9u0107 AC0Koa HyNWaP eUC8mr 84%3D INTERFACE [facility] [address], [place], [address], 02/15/2024 11:10:10 02/16/[address], ankle + foot, w/o contr ast No observ ation record ed. [email or web address] Not Available 2023 15:11:58 Result Notes None recorded. Procedures Surgical History Date Name Laterality Status Provider Name and Address Organization Details Recorded Time 4 Cast Removal completed Mary Pederson [place] - [facility] 02/22/2024 12:07:49 4 Cast_Short Leg_11+ completed JOHN GARZA [facility] 02/18/2024 12:59:56 4 Cast Removal completed JOHN GARZA [facility] 02/18/2024 12:57:56 Imaging Results Imaging Date Name Status LastModified by Organiz ation Details LastModified Time 02/15/2024 XR, foot, 2 view completed INTERFACE [facility] [address], [place], [address], 02/15/2024 11:08:00 02/15/2024 XR, foot, 2 view completed INTERFACE [facility] [address], [place], [address], 02/15/2024 11:08:02 02/15/2024 XR, ankle, 3 or more view completed INTERFACE [facility] [address], [place], [address], 02/15/2024 11:10:08 02/15/2024 XR, ankle, 3 or more view completed INTERFACE [facility] [address], [place], [address], 02/15/2024 11:10:10 02/16/2024 CT, ankle + foot, w/o contrast completed [email or web address] Information not available 02/16/2024 15:11:58 Procedure Notes None recorded. Medical Equipment None Reported. Allergies Allergen ID Allergen Name Allergen Category Reaction Reaction Severity Criticality Documentation Date Start Date Code Code System Note Provider Name and Address Organization Details Recorded Time 607190 Topamax medicatio n Not available Not available Not available 02/15/2024 57548 3 [facility] 4 11:55:06 035086 Depakote medicatio n Not available Not available Not available 02/15/2024 56775 9 RxNorm [facility] [place] [facility] 4 11:55:10 Medications Name Sig Start [...] Updated DateTime 03/31/2024 157.48 cm 28 kg/m2 90309.63 g Leydi Avalos [facility] 03/31/2024 11:20:03 Date Recorded Body height Body mass index (BMI) Body weight Provider Name and Address Organization Details Last Updated DateTime 05/16/2024 157.48 cm 28 kg/m2 45717.63 g [place] [facility] 05/16/2024 10:06:35 Date Recorded Body height Body mass index (BMI) Body weight Provider Name and Address Organization Details Last Updated DateTime 07/07/2024 157.48 cm 28 kg/m2 57267.63 g EDISON FERGUSON [facility] 07/07/2024 13:31:06 Social History None recorded. Functional Status None recorded. Mental Status None recorded. Family History Nothing Reported. Medical History No medical history recorded. Gynecological HistoryNo gynecological history recorded. Obstetrics History GPAL:G 0 P 0 0 0 0 Past Encounters Encounter ID Performer Location Encounter Start Date Encounter Closed Date Diagnosis/Indication Diagnosis SNOMED-CT Code Diagnosis ICD10 Code Diagnosis Note [id number] MD Yary Jones [address] [place] [address] 02/15/2024 10:54:15 03/15/2024 10:13:08 Ankle pain 975925117 M25.572 Sprain of left ankle 077 9869143 3549236 S93.402A Closed fra cture of lateral malleolus of left fibula 6658761215 6490805 S82.65XA [id number] MD Erik Jonese [address] [place] [address] 02/18/2024 12:13:19 02/18/2024 13:00:30 Fracture of ankle 62091705 S82.65XA [id number] [facility]is [facility] [address] [place] [address] 02/22/2024 10:57:56 02/22/2024 12:11:51 Sprain of left ankle 6493778934 8975801 S93.402A Sprain of lateral ligament of ankle joint 181078447 S93.492D [id number] Haris Carroll [facility] [address] [place] [address] 03/01/2024 11:09:22 03/25/2024 10:43:23 Sprain of left ankle 9581272871 7340407 S93.402A [id number] Denice Winston PA-C [facility] [address] [place] [address] 03/31/2024 11:04:57 05/05/2024 09:25:42 Sprain of left ankle 9005172044 8333955 S93.402A [id number] Denice Winston [facility] [address] [place] [address] 05/16/2024 09:04:09 06/01/2024 20:41:20 Ankle pain 554627407 M25.555 [id number] Denice Winston PA-C [facility] [address] [place] [address] 07/07/2024 13:13:01 07/28/2024 11:52:44 Ankle pain 880344115 M25.579 Health Concerns Section Related Observation LastModified by Organization Detai ls LastModified Time None Recorded Concern Status LastModified by Organization Details LastModified Time None Recorded Advance Directives Directive None Recorded Payers Encounter Date Sequence Insurance Name Policy Number Policy Pearson Covered Member ID Pearson Member ID Guarantor Name 02/22/2024 1 [employer] (MEDICARE REPLACEMENT PPO) [id number] Linda Gonzalez [id number] Abril Shipleyon 02/22/2024 2 [place] Abril Mckeon Gonzalez [id number] Abril Shipleyon 03/01/2024 1 [employer] (MEDICARE REPLACEMENT PPO) [id number] Lidna Shipleyon [id number] Abril Shipleyon 03/01/2024 2 [place] Abril Mckeon Gonzalez [id number] Abril Songahon 03/31/2024 2 [place] Abril Mckeon Gonzalez [id number] Abril Songahon 03/31/2024 1 [place] Abril Songahon [id number] Abril Songahon 05/16/2024 1 [place] [facility] Abril Mckeon Gonzalez [id number] Abril Songahon 05/16/2024 2 [place] Abril Mckeon Gonzalez [id number] Abril Shipleyon 07/07/2024 1 [place] Abril Mckeon Gonzalez [id number] Abril Shipleyon 07/07/2024 2 [place] Abril Mckeon Gonzalez [id number] Abril Gonzalez Notes Date Note Type Note [...] side effects discussed. Denice Winston PA-C [address] [facility] [address] [facility], [place], [address], [facility] 03/31/2024 12:44:58 05/16/2024 text/html Patient seen und [...] brace as needed. She lives at a care home and is having difficulty getting transportation. She [...] in 6-8 weeks Denice Winston PA-C [address] [facility] [address], [place], [address], [facility] 05/16/2024 11:15:34 07/07/2024 text/html Patient seen und [...] a bad sprain. She lives at a care home and is having difficulty getting transportation. She [...] full duty work. Denice Winston PA-C [address] [facility] [address], [place], [address], [facility] 07/07/2024 14:01:30 OBGyn Episode No OBEpisode recorded.
== END 2024-08-18 18:58 | disposition home or self-care (01) ==
PROVIDERS: Emergency Medicine; Emergency Provider Emergency Medicine; PCP Physician Assistant
DX: N83.291 Other ovarian cyst, right side (principal); R10.33 Periumbilical pain; F17.210 Nicotine dependence, cigarettes, uncomplicated; F12.90 Cannabis use, unspecified, uncomplicated; Z79.899 Other long term (current) drug therapy
CPT/HCPCS: 36415; 74177; 80048; 80076; 81003; 83690; 85025; 96374; 96376; 99284; J2270; Q9967

== ENCOUNTER → 2024-08-18 15:21 | Outpatient (BNV) | payer MEDICARE, MEDICAID, SELFPAY | PROVIDERS: Emergency Provider Emergency Medicine; PCP Physician Assistant; Visit Provider Radiology Diagnostic Radiology | DX: K42.9 Umbilical hernia without obstruction or gangrene (principal) | CPT/HCPCS: 74177 ==

== ENCOUNTER 2024-08-24 08:37 | Outpatient (REF) | payer MEDICARE, MEDICAID, SELFPAY ==
--- OUTSIDE RECORDS SUMMARY | 2024-08-24 08:40 | XMS_ITS | Data Portability ---
Author Organization [facility] Address [address] [place] [address] Care Team Providers Care Online Advertising Director Name Role Phone SHANITA MARTIN Primary Care Provider Assessment Encounter Date Assessment Date Assessment LastModified by Organization Details LastModified Time 03/01/2024 03/01/2024 Telemedicine Telephone Encounter Patient Location: Home Physician Location: [facility] Office [place], [place] Time spent with patient: 12 mins [...] inversion sprain. She currently lives in a usp. She was seen at [facility] where x-rays were negative. She later saw [...] the same service when rendered via a bdfr-er-ofap interaction. I discussed with the patient the [...] meloxicam 15 mg tablet 2023 024 [email or web address] [id number], [address], [place], [id number], 15:05:00 meloxicam 15 mg tablet [address] [id number], [address], [place], [id number], 12:11:54 Patient TargetsNo targets recorded. Patient InstructionsNo instructions recorded. Reason for Referral Physical Therapist Referral for Sprain of left ankle left ankle rehab rom, stretch, strengthening Referring Physician: Denice Winston, Orthopedic Surgery, Encounter Date: 03/31/2024 Results Created Date Observation Date Name Description Value Unit Range Abnormal Flag Note LastModifiedBy Organization Detail LastModifiedTime 02/15/20 24 02/15/2024 XR, foot, 2 view [email or web address]:/ [email or web address] ?Encry pted=s hAaTro YD8dLq bEUv6g %2BXZw aYqtaq 0bqfl% 2Fg9IQ a4ajBk vP9nXo QUaueC m3YtLR FvZlgJ JJ8mAn HZtai3 6b2907 AC0Koa HyNWaD eUC8mr 84%3D [facility] [address] [facility] [address], [place], [address], 02/15/2024 11:08:00 02/15/20 24 02/15/2024 XR, foot, 2 view [email or web address]:/ [email or web address] ?Encry pted=s hAaTro YD8dLq bEUv6g %2BXZw aYqtaq 0bqfl% 2Fg9IQ a4ajBk vP9nXo QUaueC m3YtLR FvZl JJ8[place] HZtai3 2w3836 AC0Koa HyNWaD eUC8mr 84%3D INTERFACE [facility] [address], [place], [address], 02/15/2024 11:08:02 02/15/20 24 02/15/2024 XR, ankle , 3 or more view [email or web address] ?Encry pted=s hAaTro YD8dLq bEUv6g %2BXZw aYqtaq 0bqfl% 2Fg9IQ a4ajBk vP9nXo QUaueC m3YtLR FvZl JJ8[place] HZtai3 3x2077 AC0Koa HyNWaP eUC8mr 84%3D INTERFACE [facility] [address], [place], [address], 02/15/2024 11:10:08 02/15/20 24 02/15/2024 XR, ankle , 3 or more view [email or web address] ?Encry pted=s hAaTro YD8dLq bEUv6g %2BXZw aYqtaq 0bqfl% 2Fg9IQ a4ajBk vP9nXo QUaueC m3YtLR Zl [facility] 1n8351 AC0Koa HyNWaP eUC8mr 84%3D INTERFACE [facility] [address], [place], [address], 02/15/2024 11:10:10 02/16/[address], ankle + foot, w/o contr ast No observ ation record ed. [email or web address] Not Available 2023 15:11:58 Result Notes None recorded. Procedures Surgical History Date Name Laterality Status Provider Name and Address Organization Details Recorded Time 4 Cast Removal completed Mary Pederson [place] - [facility] 02/22/2024 12:07:49 4 Cast_Short Leg_11+ completed JOHN GARZA [facility] 02/18/2024 12:59:56 4 Cast Removal completed JOHN GARZA [facility] 02/18/2024 12:57:56 Imaging Results Imaging Date Name Status LastModified by Organiz ation Details LastModified Time 02/15/2024 XR, foot, 2 view completed INTERFACE [employer] [facility] [address], [place], [address], 02/15/2024 11:08:00 02/15/2024 XR, foot, 2 view completed INTERFACE [facility] [address], [place], [address], 02/15/2024 11:08:02 02/15/2024 XR, ankle, 3 or more view completed INTERFACE [employer] Office [address], [place], [address], 02/15/2024 11:10:08 02/15/2024 XR, ankle, 3 or more view completed INTERFACE [employer] [facility] [address], [place], [address], 02/15/2024 11:10:10 02/16/2024 CT, ankle + foot, w/o contrast completed [email or web address] Information not available 02/16/2024 15:11:58 Procedure Notes None recorded. Medical Equipment None Reported. Allergies Allergen ID Allergen Name Allergen Category Reaction Reaction Severity Criticality Documentation Date Start Date Code Code System Note Provider Name and Address Organization Details Recorded Time 223657 Topamax medicatio n Not available Not available Not available 02/15/2024 96435 3 [facility] 4 11:55:06 690013 Depakote medicatio n Not available Not available Not available 02/15/2024 80407 9 RxNorm [facility] [place] [facility] 4 11:55:10 Medications Name Sig [...] Updated DateTime 03/31/2024 157.48 cm 28 kg/m2 80229.63 g Leydi Avalos [facility] 03/31/2024 11:20:03 Date Recorded Body height Body mass index (BMI) Body weight Provider Name and Address Organization Details Last Updated DateTime 05/16/2024 157.48 cm 28 kg/m2 42262.63 g [place] [facility] 05/16/2024 10:06:35 Date Recorded Body height Body mass index (BMI) Body weight Provider Name and Address Organization Details Last Updated DateTime 07/07/2024 157.48 cm 28 kg/m2 16650.63 g EDISON FERGUSON [facility] 07/07/2024 13:31:06 Social History None recorded. Functional Status None recorded. Mental Status None recorded. Family History Nothing Reported. Medical History No medical history recorded. Gynecological HistoryNo gynecological history recorded. Obstetrics History GPAL:G 0 P 0 0 0 0 Past Encounters Encounter ID Performer Location Encounter Start Date Encounter Closed Date Diagnosis/Indication Diagnosis SNOMED-CT Code Diagnosis ICD10 Code Diagnosis Note [id number] MD Yary Jones [address] [place] [address] 02/15/2024 10:54:15 03/15/2024 10:13:08 Ankle pain 201047014 M25.572 Sprain of left ankle 577 9869686 0111900 S93.402A Closed fra cture of lateral malleolus of left fibula 2688017453 1169404 S82.65XA [id number] MD Erik Jonese [address] [place] [address] 02/18/2024 12:13:19 02/18/2024 13:00:30 Fracture of ankle 64414872 S82.65XA [id number] Haris Carroll MD [facility] [address] [place] [address] 02/22/2024 10:57:56 02/22/2024 12:11:51 Sprain of left ankle 8534046608 7501384 S93.402A Sprain of lateral ligament of ankle joint 776856251 S93.492D [id number] Haris Carroll MD [facility] [address] [place] [address] 03/01/2024 11:09:22 03/25/2024 10:43:23 Sprain of left ankle 2290222644 4179176 S93.402A [id number] Denice Winston PA-C [facility] [address] [place] [address] 03/31/2024 11:04:57 05/05/2024 09:25:42 Sprain of left ankle 5347118708 1247959 S93.402A [id number] [facility] [address] [address] [place] [address] 05/16/2024 09:04:09 06/01/2024 20:41:20 Ankle pain 436529739 M25.763 [id number] Denice Winston PA-C [facility] [address] [place] [address] 07/07/2024 13:13:01 07/28/2024 11:52:44 Ankle pain 272268603 M25.579 Health Concerns Section Related Observation LastModified by Organization Detai ls LastModified Time None Recorded Concern Status LastModified by Organization Details LastModified Time None Recorded Advance Directives Directive None Recorded Payers Encounter Date Sequence Insurance Name Policy Number Policy Pearson Covered Member ID Pearson Member ID Guarantor Name 02/22/2024 1 [employer] (MEDICARE REPLACEMENT PPO) [id number] Linda Gonzalez [id number] Abril Shipleyon 02/22/2024 2 [place] Abril Mckeon Gonzalez [id number] Abril Shipleyon 03/01/2024 1 [employer] (MEDICARE REPLACEMENT PPO) [id number] Linda Shipleyon [id number] Abril Shipleyon 03/01/2024 2 [place] Abril Mckeon Gonzalez [id number] Abril Songahon 03/31/2024 2 [place] Abril Mckeon Gonzalez [id number] Abril Songahon 03/31/2024 1 [place] Abril Songahon [id number] Abril Songahon 05/16/2024 1 [place] [facility] Abril Mckeon Gonzalez [id number] Abril Songahon 05/16/2024 2 [place] Abril Mckeon Gonzalez [id number] Abril Shipleyon 07/07/2024 1 [place] Abril Mckeon Gonzalez [id number] Abril Shipleyon 07/07/2024 2 [place] Abril Mckeon Gonzalez [id number] Abril Gonzalez Notes Date Note Type Note [...] side effects discussed. Denice Winston PA-C [address] [facility] [address] [facility], [place], [address], [facility] - [facility] 03/31/2024 12:44:58 05/16/2024 text/html Patient [...] brace as needed. She lives at a usp and is having difficulty getting transportation. She [...] in 6-8 weeks Denice Winston PA-C [address] [facility] [address], [place], [address], [facility] - [facility] 05/16/2024 11:15:34 07/07/2024 text/html Patient [...] a bad sprain. She lives at a usp and is having difficulty getting transportation. She [...] full duty work. Denice Winston PA-C [address] [facility] [address], [place], [address], [facility] - [facility] 07/07/2024 14:01:30 OBGyn Episode No OBEpisode recorded.
== END 2024-08-24 08:38 | disposition home or self-care (01) ==
LOC: HO.HOSX 08:37
DX: Z13.89 Encounter for screening for other disorder (principal)

== ENCOUNTER 2024-09-07 09:25 | Outpatient (AMB) | payer MEDICARE, MEDICAID, SELFPAY ==
--- NOTE | 2024-09-07 09:34 | AM.OFFWIN_ITS ---
Intake Vital Signs 09/07/24 09:36 Height 5 ft 2 in Weight 161 lb BMI 29.4 BP 110/70 Blood Pressure Location Rt brachial Position Sitting Pulse 99 Pulse Source Pulse Oximeter Temp 98.6 F Temp Source Oral Pulse Oximetry (%) 95 Oxygen Delivery Method Room Air Intake Visit Reasons: EP loss of voice, productive cough, rt hip pain Intake Note: Patient here for loss of voice, productive cough that has been present for about 5 days. Patient Tobacco Use Status: Current everyday Tobacco user Allergies topiramate [From TOPAMAX] Allergy (Mild, Verified 09/07/24 09:37) NAUSEA & VOMITING divalproex sodium [From DEPAKOTE] Adverse Reaction (Unknown, Verified 09/07/24 09:37) NAUSEA & VOMITING Do you need a note to return to daycare/school/sports/work: No HPI HPI Comments History of Present Illness Details Was last seen 08/16 for abdominal complaint and worked up but ER and OBGYN Represents today for URI symptoms Symptoms onset 4-5 days ago + current smoker with hx of lung disease Lives in penitentiary so + exposure to illness She said yesterday worsening sinus congestion and pressure + yellow mucus from nose and green mucus from chest + St and hoarse voice + cough with phlegm +body aches and fatigue No chills, fever, nausea/vomiting complaint Has tried Robitussin and mucinex without relief She also mentions R hip pain Ongoing x 1 week Has chronic back pain and sometimes has pain radiation into hip Denies recent trauma, injury or falls No radiation into extremities No urine/bowel complaint Denies numbness or weakness Worse with ambulation and better with rest Sometimes 6/10 Chiropractor has helped in past. Denies wanting PT Has tried flexeril, anti-inflammatories etc PFSH Medical History Wrist pain, left Ankle pain, left Obesity Restless leg syndrome Migraine Anxiety Fibromyalgia Surgical History H/O rectal polypectomy History of surgery History of hernia repair History of wisdom tooth extraction History of tonsillectomy History of umbilical hernia repair H/O LEEP History of colectomy Family History Father CVD (cardiovascular disease) Myocardial infarction Mother Chronic mental illness Dementia Myocardial infarction, Onset Age: 40 Seizure Sister In good health Son In good health Maternal Aunt Breast CA Paternal Aunt Breast CA Other Mental health disorder Social History Household Members Other:: roommate Housing: Other Housing Other:: lives in penitentiary Do you presently have visiting nurse or other home services: No Alcohol intake: former Patient Tobacco Use Status: Current everyday Tobacco user Tobacco use type: Cigarette Cigarette Packs Per Day: 1 Cigarettes Per Day: 20.0 Years Smoked: 15 e-Cigarette/Vaping Use: Never Used Second Hand Smoke Exposure: Yes Substance Use Type: Marijuana Advance Directives Date on File: 09/17/22 service: No Current occupational status: disabled Cognitive needs: No Hearing needs: No Vision needs: No Review of Systems Const Denies chills, Reports fatigue and Denies fever(s) Eyes Denies change in vision ENT Reports nasal congestion, Reports sinus pressure and Reports throat swelling (feels like swollen lymph nodes per pt) Card Denies chest pain and Denies dyspnea Resp Reports change in phlegm color, Reports chest congestion, Reports cough, Denies hemoptysis and Denies dyspnea Musc Reports arthralgias (R hip pain), Denies numbness, Denies radiating pain into limb and Denies tingling Neuro Denies numbness and Denies tingling Endo Reports fatigue Aller/Immun Reports throat swelling (feels like swollen lymph nodes per pt) Physical Exam Vital Signs: Last Vital Signs Temp 98.6 F 09/07/24 09:36 Pulse 99 09/07/24 09:36 BP 110/70 09/07/24 09:36 Pulse Ox 95 09/07/24 09:36 Oxygen Delivery Method Room Air 09/07/24 09:36 BMI result Body Mass Index 29.4 General: Non-toxic, NAD. Speaking full sentences. Skin: Warm dry throughout Eye: EOMI HENT: Airway patent. No pharyngeal erythema or edema. No PAPER TESTER. Bilateral canals clear. TM non-erythematous, non-bulging. No TM perforation or hemotympanum noted. Respiratory: + rhonchi without wheezes, rales. No tachypnea or stridor Cardiac: RRR. No murmur MSK: No midline ttp. + diffuse R hip ttp. + full ROM flexion to chest/abdomen of R hip. Negative SLR sitting RLE. 5/5 strength dorsal flexion R great toe. Full ROM remaining extremities. Neurology: Alert. No aphasia or facial droop. Gait without abnormality Psych: Good mood and affect Assessment & Plan Assessment & Plan (1) Bronchitis: Code(s): J40 - Bronchitis, not specified as acute or chronic Plan: Patient seen and evaluated. No crackles heard but due to lung diease and rhonhi will cover with augmentin (pr refused zpack) Discussed rest, fluids, PCP follow up Work note given Patient gave verbal understanding and had no additional questions or concerns at time of discharge All questions answered (2) Hip pain: Code(s): M25.559 - Pain in unspecified hip Qualifiers: Laterality: right Qualified Code(s): M25.551 - Pain in right hip Plan: No trauma/injury No xray indicated at this time Discussed PT referral but she declined She has appointment with [facility] chiropractor in [place]; does not need referral Has used in past with good success Will call with concerns Medications: New amoxicillin-pot clavulanate 875-125 mg 1 tab PO BID 14 tabs 0RF benzonatate 200 mg PO BID-TID PRN 14 caps 0RF cough Coding Level of Care Code Est Pt Level 3 (81180) Diagnoses Bronchitis J40 Pain of right hip M25.551 Laterality: right
[2024-09-07 09:36] VITALS: BP 110/70; PULSE 99; TEMP 37; O2SAT 95; BMI 29.4
--- OUTSIDE RECORDS SUMMARY | 2024-09-07 09:44 | XMS_ITS | Patient Health Record ---
Author Organization [facility] Address [address] [place] [address] Care Team Providers Care Dean Of Men Name Role Phone SHANITA JONES Primary Care [...] Risk Notes Problem Lumbosacral spondylosis without myelopathy (34416130) Spondylosis without myelopathy or radiculopathy, lumbar region (M47.816) Active confirmed Plan Of Treatment No Information Insurance Providers Payer Name Payer Address Payer Phone Subscriber Number Group Number Insured Name Patient Relationship to Insured Coverage Start Date Coverage End Date Medicare B [facility] [address] [place] [phone] [id number] RAMIREZ RILEYE Self - patient is the insured [employer] Medicaid of [place] [address] [place] [phone] [id number] RAMIREZ RILEYE Self - patient is the [...]
--- OUTSIDE RECORDS SUMMARY | 2024-09-07 09:44 | XMS_ITS | Data Portability ---
Author Organization [facility], [facility] Address [address] [place] [address] Care Team Providers Care Strategy Execution Consultant Name Role Phone SHANITA MARTIN Primary Care Provider Assessment Encounter Date Assessment Date Assessment LastModified by Organization Details LastModified Time 03/01/2024 03/01/2024 Telemedicine Telephone Encounter Patient Location: Home Physician Location: [facility] Office [place], [place] Time spent with patient: 12 mins [...] inversion sprain. She currently lives in a jail. She was seen at [facility] where x-rays were negative. She [...] the same service when rendered via a ksdr-gf-voeu interaction. I discussed with the patient the [...] meloxicam 15 mg tablet [email or web address] [id number], [address], [place], [id number], 12:11:54 meloxicam 15 mg tablet [address] [id number], [address], [place], [phone], 15:05:00 Patient TargetsNo targets recorded. Patient InstructionsNo instructions recorded. Reason for Referral Physical Therapist Referral for Sprain of left ankle left ankle rehab rom, stretch, strengthening Referring Physician: Denice Winston, Orthopedic Surgery, Encounter Date: 03/31/2024 Results Created Date Observation Date Name Description Value Unit Range Abnormal Flag Note LastModifiedBy Organization Detail LastModifiedTime 02/15/20 24 02/15/2024 XR, foot, 2 view [email or web address]:/ [email or web address] ?Encry pted=s hAaTro YD8dLq bEUv6g %2BXZw aYqtaq 0bqfl% 2Fg9IQ a4ajBk vP9nXo QUaueC m3YtLR FvZlgJ JJ8mAn HZtai3 5l3172 AC0Koa HyNWaD eUC8mr 84%3D INTERFACE [facility] Office [address] [facility] [address], [place], [address], 02/15/2024 11:08:00 02/15/20 24 02/15/2024 XR, foot, 2 view [email or web address]:/ [email or web address] ?Encry pted=s hAaTro YD8dLq bEUv6g %2BXZw aYqtaq 0bqfl% 2Fg9IQ a4ajBk vP9nXo QUaueC m3YtLR Zl [place] HZtai3 7b9153 AC0Koa HyNWaD eUC8mr 84%3D INTERFACE [facility] [address], [place], [address], 02/15/2024 11:08:02 02/15/20 24 02/15/2024 XR, ankle , 3 or more view [email or web address] ?Encry pted=s hAaTro YD8dLq bEUv6g %2BXZw aYqtaq 0bqfl% 2Fg9IQ a4ajBk vP9nXo QUaueC m3YtLR FvZl [place] HZtai3 0m5724 AC0Koa HyNWaP eUC8mr 84%3D INTERFACE [facility] [address], [place], [address], 02/15/2024 11:10:08 02/15/20 24 02/15/2024 XR, ankle , 3 or more view [email or web address] ?Encry pted=s hAaTro YD8dLq bEUv6g %2BXZw aYqtaq 0bqfl% 2Fg9IQ a4ajBk vP9nXo QUaueC m3YtLR Zl J8[facility] Administrationtai3 6d8469 AC0Koa HyNWaP eUC8mr 84%3D INTERFACE [facility] [address], [place], [address], 02/15/2024 11:10:10 02/16/[address], ankle + foot, w/o contr ast No observ ation record ed. [email or web address] Not Available 2023 15:11:58 Result Notes None recorded. Procedures Surgical History Date Name Laterality Status Provider Name and Address Organization Details Recorded Time Cast Removal completed Mary Pederson [place] - [facility] 02/22/2024 12:07:49 4 Cast_Short Leg_11+ completed JOHN GARZA [facility] 02/18/2024 12:59:56 4 Cast Removal completed JOHN GARZA [facility] 02/18/2024 12:57:56 Imaging Results Imaging Date Name Status LastModified by Organiz ation Details LastModified Time 02/15/2024 XR, foot, 2 view completed INTERFACE [facility] [address], [place], [address], 02/15/2024 11:08:00 02/15/2024 XR, foot, 2 view completed INTERFACE [facility] [address], [place], [address], 02/15/2024 11:08:02 02/15/2024 XR, ankle, 3 or more view completed INTERFACE [facility] [address], [place], [address], 02/15/2024 11:10:08 02/15/2024 XR, ankle, 3 or more view completed INTERFACE [facility] [address], [place], [address], 02/15/2024 11:10:10 02/16/2024 CT, ankle + foot, w/o contrast completed [email or web address] Information not available 02/16/2024 15:11:58 Procedure Notes None recorded. Medical Equipment None Reported. Allergies Allergen ID Allergen Name Allergen Category Reaction Reaction Severity Criticality Documentation Date Start Date Code Code System Note Provider Name and Address Organization Details Recorded Time 868034 Topamax medicatio n Not available Not available Not available 02/15/2024 72523 3 RxNorm [facility] 11:55:06 564154 Depakote medicatio n Not available Not available Not available 02/15/2024 51317 9 RxNorm [facility] [employer] [facility] 4 11:55:10 Medications Name Sig Start [...] Updated DateTime 03/31/2024 157.48 cm 28 kg/m2 21770.63 g Leydi Avalos [facility] 03/31/2024 11:20:03 Date Recorded Body height Body mass index (BMI) Body weight Provider Name and Address Organization Details Last Updated DateTime 05/16/2024 157.48 cm 28 kg/m2 62863.63 g [place] [facility] 05/16/2024 10:06:35 Date Recorded Body height Body mass index (BMI) Body weight Provider Name and Address Organization Details Last Updated DateTime 07/07/2024 157.48 cm 28 kg/m2 83788.63 g EDISON FERGUSON [facility] 07/07/2024 13:31:06 Social History None recorded. Functional Status None recorded. Mental Status None recorded. Family History Nothing Reported. Medical History No medical history recorded. Gynecological HistoryNo gynecological history recorded. Obstetrics History GPAL:G 0 P 0 0 0 0 Past Encounters Encounter ID Performer Location Encounter Start Date Encounter Closed Date Diagnosis/Indication Diagnosis SNOMED-CT Code Diagnosis ICD10 Code Diagnosis Note [id number] MD Yary Jones [address] [place] [address] 02/15/2024 10:54:15 03/15/2024 10:13:08 Ankle pain 624064786 M25.572 Sprain of left ankle 389 6576082 7609819 S93.402A Closed fra cture of lateral malleolus of left fibula 4157047057 8152239 S82.65XA [id number] MD Yary Jones [address] [place] [address] 02/18/2024 12:13:19 02/18/2024 13:00:30 Fracture of ankle 83398725 S82.65XA [id number] Haris Carroll MD [facility] [address] [place] [address] 02/22/2024 10:57:56 02/22/2024 12:11:51 Sprain of left ankle 7079273508 6496559 S93.402A Sprain of lateral ligament of ankle joint 521398254 S93.492D [id number] Haris Carroll MD [facility] [address] [place] [address] 03/01/2024 11:09:22 03/25/2024 10:43:23 Sprain of left ankle 1236049546 1918149 S93.402A [id number] [facility] [address] [place] [address] 03/31/2024 11:04:57 05/05/2024 09:25:42 Sprain of left ankle 0858394498 7096655 S93.402A [id number] [facility] [address] [address] [place] [address] 05/16/2024 09:04:09 06/01/2024 20:41:20 Ankle pain 053323244 M25.999 [id number] Denice Winston PA-C [facility] [address] [place] [address] 07/07/2024 13:13:01 07/28/2024 11:52:44 Ankle pain 749034685 M25.579 Health Concerns Section Related Observation LastModified by Organization Detai ls LastModified Time None Recorded Concern Status LastModified by Organization Details LastModified Time None Recorded Advance Directives Directive None Recorded Payers Encounter Date Sequence Insurance Name Policy Number Policy Pearson Covered Member ID Pearson Member ID Guarantor Name 02/22/2024 1 [employer] (MEDICARE REPLACEMENT PPO) [id number] Linda Gonzalez [id number] Abril Shipleyon 02/22/2024 2 [place] Abril Mckeon Gonzalez [id number] Abril Shipleyon 03/01/2024 1 [employer] (MEDICARE REPLACEMENT PPO) [id number] Abril Shipleyon [id number] Abril Shipleyon 03/01/2024 2 [place] Abril Mckeon Gonzalez [id number] Abril Shipleyon 03/31/2024 2 [place] Abril Mckeon Gonzalez [id number] Abril Shipleyon 03/31/2024 1 [place] Abril Songahon [id number] Abril Songahon 05/16/2024 1 [place] Abril Mckeon Gonzalez [id number] Abril Shipleyon 05/16/2024 2 [place] Abril Mkceon Gonzalez [id number] Abril Shipleyon 07/07/2024 1 [place] Abril Mckeon Gonzalez [id number] Abril Shipleyon 07/07/2024 2 [place] Abril Mckeon Gonzalez [id number] Abril Gonzalez Notes Date Note Type Note [...] side effects discussed. Denice Winston PA-C [address] [facility] [address] [facility], [place], [address], [facility] 03/31/2024 12:44:58 05/16/2024 text/html Patient seen [...] brace as needed. She lives at a jail and is having difficulty getting transportation. She [...] in 6-8 weeks Denice Winston PA-C [address] [facility] [address], [place], [address], [facility] 05/16/2024 11:15:34 07/07/2024 text/html Patient seen [...] a bad sprain. She lives at a jail and is having difficulty getting transportation. She [...] full duty work. Denice Winston PA-C [address] [facility] [address], [place], [address], [facility] 07/07/2024 14:01:30 OBGyn Episode No OBEpisode recorded.
== END 2024-09-07 10:03 | disposition home or self-care (01) ==
PROVIDERS: PCP Physician Assistant; Visit Provider Physician Assistant
DX: J40 Bronchitis, not specified as acute or chronic (principal); M25.551 Pain in right hip

== ENCOUNTER → 2024-09-07 09:25 | Outpatient (BNVA) | payer MEDICARE, MEDICAID, SELFPAY | PROVIDERS: PCP Physician Assistant | DX: J40 Bronchitis, not specified as acute or chronic (principal); M25.551 Pain in right hip | CPT/HCPCS: 99212 ==

== ENCOUNTER 2024-10-18 11:27 | Outpatient (AMB) | payer MEDICARE, MEDICAID, SELFPAY ==
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
[2024-10-18 12:18] VITALS: BP 124/80; PULSE 64; O2SAT 98
--- OUTSIDE RECORDS SUMMARY | 2024-10-18 13:56 | XMS_ITS | Data Portability ---
Author Organization [facility], [facility] Address [address] [place] [address] Care Team Providers Care Dependency Counselor Name Role Phone SHANITA MARTIN Primary Care Provider [phone] Assessment Encounter Date Assessment Date Assessment LastModified by Organization Details LastModified Time 03/01/2024 03/01/2024 Telemedicine Telephone Encounter Patient Location: Home Physician Location: [facility] Office [place], [place] Time spent with patient: 12 mins [...] inversion sprain. She currently lives in a group home. She was seen at [facility] where x-rays were negative. She [...] the same service when rendered via a aydf-zh-bqdn interaction. I discussed with the patient the [...] meloxicam 15 mg tablet 2023 024 [email or web address] [id number], [address], [place], [id number], 12:11:54 meloxicam 15 mg tablet [address] [id number], [address], [place], [id number], 15:05:00 Patient TargetsNo targets recorded. Patient InstructionsNo instructions recorded. Reason for Referral Physical Therapist Referral for Sprain of left ankle left ankle rehab rom, stretch, strengthening Referring Physician: Denice Winston, Orthopedic Surgery, Encounter Date: 03/31/2024 Results Created Date Observation Date Name Description Value Unit Range Abnormal Flag Note LastModifiedBy Organization Detail LastModifiedTime 02/15/20 24 02/15/2024 XR, foot, 2 view [email or web address] ?Encry pted=s hAaTro YD8dLq bEUv6g %2BXZw aYqtaq 0bqfl% 2Fg9IQ a4ajBk vP9nXo QUaueC m3YtLR FvZlgJ JJ8mAn HZtai3 3s1846 AC0Koa HyNWaD eUC8mr 84%3D INTERFACE [facility] [address] [facility] [address], [place], [address], 02/15/2024 11:08:00 02/15/20 24 02/15/2024 XR, foot, 2 view [email or web address] ?Encry pted=s hAaTro YD8dLq bEUv6g %2BXZw aYqtaq 0bqfl% 2Fg9IQ a4ajBk vP9nXo QUaueC m3YtLR FvZl JJ8Clarissa HZtai3 9o3847 AC0Koa HyNWaD eUC8mr 84%3D INTERFACE [facility] [address], [place], [address], 02/15/2024 11:08:02 02/15/20 24 02/15/2024 XR, ankle , 3 or more view [email or web address]:/ [email or web address] ?Encry pted=s hAaTro YD8dLq bEUv6g %2BXZw aYqtaq 0bqfl% 2Fg9IQ a4ajBk vP9nXo QUaueC m3YtLR FvZl JJ8Clarissa HZtai3 6x0364 AC0Koa HyNWaP eUC8mr 84%3D INTERFACE [facility] [address], [place], [address], 02/15/2024 11:10:08 02/15/20 24 02/15/2024 XR, ankle , 3 or more view [email or web address]:/ [email or web address] ?Encry pted=s hAaTro YD8dLq bEUv6g %2BXZw aYqtaq 0bqfl% 2Fg9IQ a4ajBk vP9nXo QUaueC m3YtLR Zl [facility] 0f5803 AC0Koa HyNWaP eUC8mr 84%3D INTERFACE [facility] [address], [place], [address], 02/15/2024 11:10:10 02/16/[address], ankle + foot, w/o contr ast No observ ation record ed. Not Available 2023 15:11:58 Result Notes None recorded. Procedures Surgical History Date Name Laterality Status Provider Name and Address Organization Details Recorded Time 4 Cast Removal completed Mayr Pederson [place] - [facility] 02/22/2024 12:07:49 4 Cast_Short Leg_11+ completed JOHN GARZA [facility] 02/18/2024 12:59:56 4 Cast Removal completed JOHN GARZA [facility] 02/18/2024 12:57:56 Imaging Results Imaging Date Name Status LastModified by Organiz ation Details LastModified Time 02/15/2024 XR, foot, 2 view completed INTERFACE [facility] [address], [place], [address], 02/15/2024 11:08:00 02/15/2024 XR, foot, 2 view completed INTERFACE [facility] [address], [place], [address], 02/15/2024 11:08:02 02/15/2024 XR, ankle, 3 or more view completed INTERFACE [facility] [address], [place], [address], 02/15/2024 11:10:08 02/15/2024 XR, ankle, 3 or more view completed INTERFACE [facility] [address], [place], [address], 02/15/2024 11:10:10 02/16/2024 CT, ankle + foot, w/o contrast completed Information not available 02/16/2024 15:11:58 Procedure Notes None recorded. Medical Equipment None Reported. Allergies Allergen ID Allergen Name Allergen Category Reaction Reaction Severity Criticality Documentation Date Start Date Code Code System Note Provider Name and Address Organization Details Recorded Time 658313 Topamax medicatio n Not available Not available Not available 02/15/2024 45892 3 [facility] 4 11:55:06 942268 Depakote medicatio n Not available Not available Not available 02/15/2024 13269 9 RxNorm [facility] med[facility] [place] [facility] 4 [...] Updated DateTime 03/31/2024 157.48 cm 28 kg/m2 03336.63 g Leydi Avalos [facility] 03/31/2024 11:20:03 Date Recorded Body height Body mass index (BMI) Body weight Provider Name and Address Organization Details Last Updated DateTime 05/16/2024 157.48 cm 28 kg/m2 41267.63 g [place] [facility] 05/16/2024 10:06:35 Date Recorded Body height Body mass index (BMI) Body weight Provider Name and Address Organization Details Last Updated DateTime 07/07/2024 157.48 cm 28 kg/m2 53960.63 g EDISON FERGUSON [facility] 07/07/2024 13:31:06 [...] SNOMED-CT Code Diagnosis ICD10 Code Diagnosis Note [id number] MD Yary Jones [address] [place] [address] 02/15/2024 10:54:15 03/15/2024 10:13:08 Ankle pain 695502282 M25.572 Sprain of left ankle 625 1858880 1200205 S93.402A Closed fra cture of lateral malleolus of left fibula 0409021228 4970500 S82.65XA [id number] MD Erik Jonese [address] [place] [address] 02/18/2024 12:13:19 02/18/2024 13:00:30 Fracture of ankle 50601449 S82.65XA [id number] Haris Carroll [facility] [address] [place] [address] 02/22/2024 10:57:56 02/22/2024 12:11:51 Sprain of left ankle 0711883116 1479639 S93.402A Sprain of lateral ligament of ankle joint 328305145 S93.492D 3701747 Haris Carroll [facility] [address] [place] [address] 03/01/2024 11:09:22 03/25/2024 10:43:23 Sprain of left ankle 9706212005 3458981 S93.402A [id number] Denice Winston PA-C [facility] [address] [place] [address] 03/31/2024 11:04:57 05/05/2024 09:25:42 Sprain of left ankle 8896808025 2061343 S93.402A [id number] [facility] [address] [address] [place] [address] 05/16/2024 09:04:09 06/01/2024 20:41:20 Ankle pain 161740166 M25.956 [id number] Denice Winston PA-C [facility] [address] [place] [address] 07/07/2024 13:13:01 07/28/2024 11:52:44 Ankle pain 879664253 M25.579 Health Concerns Section Related Observation LastModified by Organization Detai ls LastModified Time None Recorded Concern Status LastModified by Organization Details LastModified Time None Recorded Advance Directives Directive None Recorded Payers Encounter Date Sequence Insurance Name Policy Number Policy Pearson Covered Member ID Pearson Member ID Guarantor Name 02/22/2024 1 [employer] (MEDICARE REPLACEMENT PPO) [id number] Linda Gonzalez [id number] Abril Shipleyon 02/22/2024 2 [place] Abril Mckeon Gonzalez [id number] Abril Shipleyon 03/01/2024 1 [employer] (MEDICARE REPLACEMENT PPO) [id number] Linda Shipleyon [id number] Abril Shipleyon 03/01/2024 2 [place] Abril Mckeon Gonzalez [id number] Abril Songahon 03/31/2024 2 [place] Abril Mckeon Gonzalez [id number] Abril Songahon 03/31/2024 1 [place] [employer] Abril Songahon [id number] Abril Songahon 05/16/2024 1 [place] [facility] Abril Mckeon Gonzalez [id number] Abril Songahon 05/16/2024 2 [place] Abril Mckeon Gonzalez [id number] Abril Shipleyon 07/07/2024 1 [place] Abril Mckeon Gonzalez [id number] Abril Shipleyon 07/07/2024 2 [place] Abril Mckeon Gonzalez [id number] Abril Gonzalez Notes Date Note Type Note [...] side effects discussed. Denice Winston PA-C [address] [facility] [address] [facility], [place], [address], [facility] - [facility] 03/31/2024 12:44:58 [...] brace as needed. She lives at a group home and is having difficulty getting transportation. [...] in 6-8 weeks Denice Winston PA-C [address] [facility] [address], [place], [address], [facility] 05/16/2024 11:15:34 [...] a bad sprain. She lives at a group home and is having difficulty getting transportation. [...] full duty work. Denice Winston PA-C [address], [place], [address], [facility] 07/07/2024 14:01:30 OBGyn Episode No OBEpisode recorded.
--- OUTSIDE RECORDS SUMMARY | 2024-10-18 13:56 | XMS_ITS | Patient Health Record ---
Author Organization [facility] Address [address] [place] [address] Care Team Providers Care Nail Feeder Name Role Phone SHANITA JONES Primary Care [...] Risk Notes Problem Lumbosacral spondylosis without myelopathy (50760384) Spondylosis without myelopathy or radiculopathy, lumbar region (M47.816) Active confirmed Plan Of Treatment No Information Insurance Providers Payer Name Payer Address Payer Phone Subscriber Number Group Number Insured Name Patient Relationship to Insured Coverage Start Date Coverage End Date Medicare B [facility] [address] [place] [phone] [id number] RAMIREZ RILEYE Self - patient is the insured [employer] of [place] [address] [place] [address] [id number] RAMIREZ RILEYE Self - patient is the [...]
== END 2024-10-18 13:09 | disposition home or self-care (01) ==
PROVIDERS: PCP Physician Assistant; Visit Provider Nurse Practitioner Family
DX: M51.9 Unspecified thoracic, thoracolumbar and lumbosacral intervertebral disc disorder (principal)

== ENCOUNTER 2024-10-18 11:27 | Outpatient (REF) | payer MEDICARE, MEDICAID, SELFPAY ==
--- NOTE | ~2024-10-18 | XR_ITS ---
EXAMINATION: XR LUMBAR SPINE 4 OR MORE VIEWS HISTORY: M51.9 - Unspecified thoracic, thoracolumbar and lumbosacral intervertebral COMPARISON: There is an is made with the prior examination dated 09/03/2023. FINDINGS: AP, lateral, bilateral oblique, and coned down views of the lumbar spine are submitted. Osseous mineralization is normal. Five nonrib-bearing lumbar vertebral bodies are identified, maintaining normal height and alignment without evidence of fracture or spondylolisthesis. There is moderate degenerative disc disease at L4-5 with disc space narrowing and endplate sclerosis. The remaining intervertebral disc spaces are preserved. The posterior elements are intact. There is no spondylolysis. The visualized paraspinal soft tissues are unremarkable. XR/XR lumbar spine 4V min IMPRESSION: Moderate degenerative disc disease at L4-5. Electronically signed by: Ayan Ackerman MD 10/18/2024 01:29 PM EDT
== END 2024-10-18 11:28 | disposition home or self-care (01) ==
LOC: HO.HMGCX 11:27
PROVIDERS: PCP Physician Assistant; Visit Provider Nurse Practitioner Family
DX: M54.31 Sciatica, right side (principal); M54.32 Sciatica, left side; M54.9 Dorsalgia, unspecified; M51.9 Unspecified thoracic, thoracolumbar and lumbosacral intervertebral disc disorder; M54.14 Radiculopathy, thoracic region
CPT/HCPCS: 72110; 99212

== ENCOUNTER → 2024-10-18 13:02 | Outpatient (BNV) | payer MEDICARE, MEDICAID, SELFPAY | PROVIDERS: PCP Physician Assistant; Visit Provider Radiology Diagnostic Radiology | DX: M51.369 Other intervertebral disc degeneration, lumbar region without mention of lumbar back pain or lower extremity pain (principal) | CPT/HCPCS: 72110 ==

== ENCOUNTER 2024-10-23 12:03 | Emergency (ER) | payer MEDICARE, MEDICAID, SELFPAY ==
--- NOTE | ~2024-10-23 | XR_ITS ---
CLINICAL HISTORY: chest tightness 2 view chest x-ray Comparison: CR/SR - XR CHEST 1V - 04/19/24 15:05 EDT Findings: No consolidation or effusion. Heart size is normal. No acute fracture. IMPRESSION: 1. No acute findings. This document has been electronically signed by: Joe Lepe MD on 10/23/2024 14:51:07
[2024-10-23 12:06] VITALS: BP 130/73; PULSE 94; RESP 18; TEMP 36.2; O2SAT 100; BMI 29.1
--- NOTE | 2024-10-23 12:06 | ED.GENADULT ---
HPI - General Adult General Chief complaint: Back Pain/Injury Stated complaint: back pain, chest tightness Time Seen by Provider: 10/23/24 13:17 Source: patient and RN notes reviewed Mode of arrival: ambulatory Limitations: no limitations History of Present Illness ED Provider: Franchesca Du PA-C HPI narrative: 49 year old female with PMHx of fibromyalgia, scoliosis, spondyloarthopathy, anxiety, MDD, presents to the ED today due to fatigue, mid back pain and chest tightness. Patient reports that she has ongoing chronic back pain and states that over the last several days her back pain has increased. She denies any new injury or trauma to her back. She went to an urgent care where she had repeat x-rays which showed no changes to her degenerative disc disease. She was discharged on a course of prednisone which she took several days of however then after 2 days she began to feel lethargic, fatigued, in a mental fog , as well as mild intermittent nausea and slight tingling sensation in bilateral hands. She explains that she discontinued taking prednisone last night (10/22/2024) due to her symptoms of lethargy and mental fog. She does endorse taking THC gummies, and recently started taking an over the counter supplement that contained ashwaganda which she states she has discontinued. She explains that she has had increased anxiety due to a planned right oophrectomy which is scheduled for 11/07/2024 but states she has a therapist for support and takes daily medications to manage her depression and anxiety with good effect. She denies fevers, chills, chest pain, SOB, urinary symptoms, saddle parasthesia, or radiculopathy in lower extremities. Denies any urinary or bowel retention or incontinence. Denies history of IVDA. No other complaints or concerns at this time. complaint: Back pain, fatigue Onset (ago): week(s) Location: chest (tightness), back (mid back ) and upper extremity (tingling bilateral hands ) Radiation: non-radiation Severity: severe Quality: constant Pain Consistency: constant Relieving factors: rest (sleeping) Exacerbating factors: movement Associated symptoms: weakness and other (fatigue) Treatments prior to arrival: none Related Data Home Medications ?Medication ?Instructions ?Recorded ?Confirmed butalbital 50 mg-acetaminophen 325 1 cap PO Q6H PRN Headaches 02/26/23 10/25/24 mg-caffeine 40 mg-codeine 30 mg cap multivitamin 1 tab PO DAILY 04/19/24 10/25/24 diclofenac sodium 75 mg 75 mg PO BID 06/28/24 10/25/24 tablet,delayed release paroxetine HCl 20 mg tablet 20 mg PO DAILY PRN 10/25/24 10/25/24 Previous Rx's ?Medication ?Instructions ?Recorded acetaminophen 500 mg tablet 500 mg PO Q6H PRN fever #60 tabs 04/23/23 hyoscyamine sulfate 0.125 mg tablet 0.125 mg PO QID PRN dyspepsia #14 08/18/24 tabs gabapentin 300 mg capsule 300 mg PO BID 30 days #60 caps 10/19/24 lidocaine 5 % topical patch 1 patch topical Q24H #30 ea 10/23/24 (DermacinRx Lidocan) cyclobenzaprine 10 mg tablet 10 mg PO BID PRN muscle spasm 30 10/25/24 days #60 tabs Allergies Allergy/AdvReac Type Severity Reaction Status Date / Time topiramate [From TOPAMAX] Allergy Mild NAUSEA & Verified 10/25/24 10:47 VOMITING divalproex sodium AdvReac Unknown NAUSEA & Verified 10/25/24 10:47 [From DEPAKOTE] VOMITING Review of Systems Review of Systems: Yes all other systems are reviewed and are negative Constitutional: Constitutional: Reports as per [facility] Past Medical History Attestation statement: The following information was validated with the patient. Medical History Wrist pain, left Ankle pain, left Obesity Restless leg syndrome Migraine Anxiety Fibromyalgia Surgical History H/O rectal polypectomy History of surgery History of hernia repair History of wisdom tooth extraction History of tonsillectomy History of umbilical hernia repair H/O LEEP History of colectomy Family History Family History Father CVD (cardiovascular disease) Myocardial infarction Mother Chronic mental illness Dementia Myocardial infarction, Onset Age: 40 Seizure Sister In good health Son In good health Maternal Aunt Breast CA Paternal Aunt Breast CA Other Mental health disorder Social History Social History Household Members Other:: roommate Housing: Other Housing Other:: lives in [facility] Do you presently have visiting nurse or other home services: No Alcohol intake: former Patient Tobacco Use Status: Current everyday Tobacco user Tobacco use type: Cigarette Cigarette Packs Per Day: 1 Cigarettes Per Day: 20.0 Years Smoked: 15 e-Cigarette/Vaping Use: Never Used Second Hand Smoke Exposure: Yes Substance Use Type: Marijuana Advance Directives Date on File: 09/17/22 service: No Current occupational status: disabled Cognitive needs: No Hearing needs: No Vision needs: No Physical Exam ED Vital Signs: Vital Signs - 24 hr 10/23/24 12:06 10/23/24 14:05 10/23/24 16:06 Temperature 97.2 F 98.1 F Pulse Rate 94 80 83 Respiratory Rate 18 17 16 Blood Pressure 130/73 114/40 L 107/48 L Pulse Oximetry 100 98 97 Oxygen Delivery Method Room Air Room Air Room Air 10/23/24 16:22 Temperature 98.1 F Pulse Rate 83 Respiratory Rate 16 Blood Pressure 107/48 L Pulse Oximetry 97 Oxygen Delivery Method Room Air BMI result Body Mass Index 29.1 Const General: cooperative and no acute distress Orientation/consciousness: patient oriented x3 Limitations: no limitations HENMT Head: Yes normal to inspection, Yes normocephalic and Yes atraumatic Ears: hearing grossly normal bilaterally General nose exam: Normal external nose present Face and sinus: Yes normal facial exam Mouth: Normal oral and palatal mucosa present, oropharynx normal and moist mucous membranes Throat: Yes posterior oropharynx normal Eyes General: appearance normal, both eyes and all related structures Eyelids: Yes eyelids normal Conjunctivae: conjunctivae normal Sclerae: sclerae normal Pupils: Equal, round and reactive pupils present EOM: EOMs intact bilaterally Neck Neck: Yes normal visual inspection, Yes full ROM and Yes no lymphadenopathy Lymphatic: no lymphadenopathy noted Chest Chest palpation & inspection: normal inspection of the chest Resp Effort & Inspection: normal respiratory effort and able to speak in complete sentences Auscultation: clear to auscultation bilaterally, no crackles, no rales, no rhonchi and no wheezes Cardio Rate: regular rate Rhythm: regular rhythm Heart sounds: S1 normal heart sound present and S2 normal heart sound present GI Inspection: Yes normal to inspection General: Yes no CVA tenderness Back/Spine/Pelvis Back: no CVA tenderness and back tenderness Thoracic/Lumbar Spine: straight leg raise positive (right side elicits back pain) Skin General skin exam: no rashes or lesions noted Trauma: no lacerations or abrasions Wounds: no wounds Neuro General: patient oriented x3, moves all extremities and CN's II-XI intact bilaterally Cranial nerves: Yes Equal, round and reactive pupils present Extrem General: Yes normal to inspection Right upper extremity: normal to inspection Left upper extremity: normal to inspection Right lower extremity: normal to inspection Left lower extremity: normal to inspection Course Course Course Narrative: RME performed by Anna Mckeon PA-C. Patient is a 49 year old assigned female at presenting to the emergency department with concerns of reaction to prednisone which she got for back pain from an urgent care. Patient states that she has been feeling off for many days with this back pain and like she's in a fog. Detailed physical exam and review of systems are deferred to the pre billing clinician. Patient placed back in the waiting room pending room availability. Reevaluation(s) Reevaluation #1: Labs returned, she has no leukocytosis, H&H stable. Chemistry with no significant electrolyte derangement. No evidence of DARY, troponin less than 2.7. Symptoms have been ongoing for several days therefore repeat not indicated. TSH 0.86, within normal range. Urine does not appear to be infected. Chest x-ray unremarkable for any consolidation or effusion. Lumbar spine x-ray revealing moderate degenerative disc disease at L4-L5 which was performed on October 18, 2024 therefore repeat not indicated as she has not had any new recent injury or trauma. Overall, she has no electrolyte derangement. She is well-appearing, speaking in full sentences under no acute distress. She has no red flag back symptoms. Brain fog is likely attributed to the recent supplementation she has been taking at home. This is unlikely attributed to steroids that she was placed on. Discussed findings with patient. Encouraged to follow-up with her PCP. Will also refer to the managed care specialist for follow-up. Patient understands and agrees with plan. Patient stable for discharge. Medical Decision Making Medical Decision Making MDM Narrative: 49 year old female with PMHx of fibromyalgia, scoliosis, spondyloarthopathy, anxiety, MDD, presents to the ED today due to mid back pain and chest tightness. She is also endorsing fatigue, lethargy, mild intermittent nausea and slight tingling in bilateral hands. She was seen in the walk in clinic for back pain on 10/18/2024 and was started on a does of prednisone which she explains her symptoms started approximately 2 days after starting steroids. She recently started taking THC gummies and an OTC medication containg ashwaganda that she has discontinued. Straight leg test is positive on the right side eliciting back pain. Tenderness palpation along the thoracic and lumbar paraspinous muscles. Highly suspect the back pain is chronic due to spondyloarthopathy. High suspicion for brain fog, fatigue and lethargy to be a symptom of recently started ashwaganda gummy and possible increased anxiety due to upcoming right oophrectomy surgical procedure. CBC/ TSH and BMP will be obtained to rule out lyte abnormality, anemia, or thyroid process. EKG obtained to rule out ACS, Chest x-ray obtained to rule out cardiopulmonary process. COVID/RSV/Flu swab obtained to rule out viral process. No back pain red flags on history or physical. Presentation not consistent with malignancy (lack of history of malignancy, lack of B symptoms), fracture (no trauma, no bony tenderness to palpation), cauda equina syndrome (no bowel or urinary incontinence/retention, no saddle anesthesia, no distal weakness), renal colic, pyelonephritis (afebrile, no CVAT, no urinary symptoms). Differential Diagnosis ACS, steroid reaction, adverse medication reaction, thyroid process, increased anxiety, viral illness, fibromyalgia/ spondyloarthropathy exacerbation Lab Data MDM Lab Attestation statement: I reviewed the patient's lab results. See course comment 10/23/24 14:38 10/23/24 14:38 Labs: Lab Results 10/23/24 Range/Units 14:38 WBC 10.5 (4.8-10.8) X10*3/uL RBC 4.80 (4.20-5.50) X10*6/uL Hgb 15.0 (12.0-16.0) g/dl Hct 43.2 (37.0-47.0) % MCV 90.0 (80.0-98.0) fL MCH 31.3 (27.0-33.0) pg MCHC 34.7 (31.0-35.0) g/dl RDW 14.3 (11.0-16.0) % Plt Count 295 (160-400) X10*3/uL MPV 9.3 L (9.4-12.3) fL Immature Gran % (Auto) 0.4 (0.0-0.4) % Neut % (Auto) 51.9 (45-73) % Lymph % (Auto) 40.6 H (20-40) % Davis % (Auto) 5.1 (2-11) % Eos % (Auto) 1.3 (0-4) % Baso % (Auto) 0.7 (0-2) % Lymph # (Auto) 4.3 (1.2-4.9) X10*3/uL Davis # (Auto) 0.5 (0.1-1.2) X10*3/uL Eos # (Auto) 0.1 (0.0-0.4) X10*3/uL Baso # (Auto) 0.1 (0.0-0.2) X10*3/uL Abs Immat Gran (auto) 0.04 H (0.00-0.03) X10*3/uL Absolute Neuts (auto) 5.5 (2.0-8.3) x10*3/uL Absolute Nucleated RBC 0.000 (0.0-0.012) X10*3/uL Nucleated RBC % (auto) 0.0 (0.0-0.2) /100WBC Sodium 142 (135-145) mmol/L Potassium 4.0 (3.3-5.1) mmol/L Chloride 108 (96-108) mmol/L Carbon Dioxide 26 (22-29) mmol/L Anion Gap 12 (12-20) BUN 11 (9-16) mg/dL Creatinine 0.61 (0.5-1.4) mg/dL Estim Creat Clear Calc 102.6 Estimated GFR > 60 Random Glucose 88 (60-115) mg/dL Calcium 9.5 (8.4-10.2) mg/dL Magnesium 2.4 (1.6-2.6) mg/dL Total Bilirubin 0.2 (0.0-1.0) mg/dL Direct Bilirubin < 0.2 (0.0-0.5) mg/dL AST 19 (5-31) U/L ALT 20 (0-31) U/L Alkaline Phosphatase 62 (39-117) U/L Troponin I High Sens < 2.7 (<3.5-17.0) ng/L Total Protein 7.1 (6.5-8.0) g/dL Albumin 4.5 (3.5-5.0) g/dL TSH 0.86 (0.32-4.0) uIU/mL Urine Color Yellow Urine Appearance Clear Urine pH 7.0 (5.0-9.0) Ur Specific [place] 1.010 (1.005-1.025) Urine Protein Negative (Neg-Trace) mg/dL Urine Glucose (UA) Negative (Negative) mg/dL Urine Ketones Negative (Negative) mg/dL Urine Blood Negative (Negative) Urine Nitrite Negative (Negative) Ur Leukocyte Esterase Negative (Negative) Influenza Type A (PCR) NEGATIVE (Negative) Influenza Type B (PCR) NEGATIVE (Negative) RSV RNA Qual (PCR) NEGATIVE (Negative) SARS-CoV-2 RNA (RT-PCR) NEGATIVE (Negative) Independent Interpretation I performed an independent interpretation of an: EKG Interpretation: Normal sinus rhythm at a ventricular rate of 78 beats per minute, no ST elevation or depression. Radiology Impression Discussion of test interpretation with radiology: I have reviewed the radiologist's reading. Radiologist Impression: [place] [id number] XRay Report Signed Patient: Abril Sun MR#: [id number] : 1975 Acct:[id number] Age/Sex: 49 / F ADM Date: 10/23/24 Loc: .ED Attending Dr: Ordering Physician: Franchesca Wong Date of Service: 10/23/24 Procedure(s): XR chest 2V Accession Number(s): [id number] cc: Rudy Barth PA-C; Franchesca Wong~ CLINICAL HISTORY: chest tightness 2 view chest x-ray Comparison: CR/SR - XR CHEST 1V - 04/19/24 15:05 EDT Findings: No consolidation or effusion. Heart size is normal. No acute fracture. IMPRESSION: 1. No acute findings. This document has been electronically signed by: Joe Lepe MD on 10/23/2024 14:51:07 Dictated By: Joe Lepe MD Discharge Plan Discharge Clinical Impression: Fatigue Patient Disposition: Home, Self-Care Instructions: Fatigue (ED), Back Pain (ED) Additional Instructions: You were seen in the emergency department. It is unclear what is causing you to have the symptoms however you may be experiencing an adverse side effect from the supplements that you have been taking. Avoid the ashwaganda gummies and THC gummies as they can cause this side effect. Drink plenty of fluids get plenty of rest. Follow-up with your primary care physician regarding this visit. Take Tylenol as needed for pain. Use lidocaine patches as needed for pain and symptoms. Do not apply warm/cold compresses directly to the lidocaine patches as this can cause skin harirs. If any new or worsening symptoms occur including but not limited to severe chest pain, severe dizziness, headaches, please seek emergent care. Prescriptions: New lidocaine [DermacinRx Lidocan] 5 % adhesive patch,medicated 1 patch topical Q24H Qty: 30 0RF Rx Instructions: leave on most painful area for up to 12 hrs No Action gabapentin 300 mg capsule 300 mg PO BID 30 Days Qty: 60 6RF hyoscyamine sulfate 0.125 mg tablet 0.125 mg PO QID PRN (Reason: dyspepsia) Qty: 14 0RF multivitamin Tablet 1 tab PO DAILY acetaminophen 500 mg tablet 500 mg PO Q6H PRN (Reason: fever) Qty: 60 0RF Rx Instructions: Take 1 tablet every 6 hours as needed for pain/fever. Do not take in combination with Fioricet. unhwluekso-chebnzhybk-fpf-cod [id number] mg capsule 1 cap PO Q6H PRN (Reason: Headaches) paroxetine HCl 20 mg tablet 20 mg PO DAILY PRN cyclobenzaprine 10 mg tablet 10 mg PO BID PRN (Reason: muscle spasm) 30 Days Qty: 60 3RF diclofenac sodium 75 mg tablet,delayed release (DR/EC) 75 mg PO BID Interventions: ED Discharge Assessment Last Done: 10/23/24 16:22 Discharge Date/Time: 10/23/24 16:23 Print Language: Kiswahili
--- OUTSIDE RECORDS SUMMARY | 2024-10-23 13:43 | XMS_ITS | Data Portability ---
Author Organization [facility], [facility] Address [address] [place] [address] Care Team Providers Care Psychometrician Name Role Phone SHANITA MARTIN Primary Care Provider Assessment Encounter Date Assessment Date Assessment LastModified by Organization Details LastModified Time 03/01/2024 03/01/2024 Telemedicine Telephone Encounter Patient Location: Home Physician Location: [facility] Office [place], [place] Time spent with patient: 12 mins [...] inversion sprain. She currently lives in a long-term. She was seen at [facility] where x-rays were negative. [...] the same service when rendered via a kbiu-ba-gwgm interaction. I discussed with the patient the [...] meloxicam 15 mg tablet 2023 024 [email or web address] [id number], [address], [place], [id number], 12:11:54 meloxicam 15 mg tablet [address] [id number], [address], [place], [phone], 15:05:00 Patient TargetsNo targets recorded. Patient InstructionsNo instructions recorded. Reason for Referral Physical Therapist Referral for Sprain of left ankle left ankle rehab rom, stretch, strengthening Referring Physician: Denice Winston, Orthopedic Surgery, Encounter Date: 03/31/2024 Results Created Date Observation Date Name Description Value Unit Range Abnormal Flag Note LastModifiedBy Organization Detail LastModifiedTime 02/15/20 24 02/15/2024 XR, foot, 2 view [email or web address] ?Encry pted=s hAaTro YD8dLq bEUv6g %2BXZw aYqtaq 0bqfl% 2Fg9IQ a4ajBk vP9nXo QUaueC m3YtLR FvZlgJ JJ8mAn HZtai3 3v0899 AC0Koa HyNWaD eUC8mr 84%3D INTERFACE [facility] [address] [facility] [address], [place], [address], 02/15/2024 11:08:00 02/15/20 24 02/15/2024 XR, foot, 2 view [email or web address] ?Encry pted=s hAaTro YD8dLq bEUv6g %2BXZw aYqtaq 0bqfl% 2Fg9IQ a4ajBk vP9nXo QUaueC m3YtLR FvZl JJ8[place] HZtai3 9v6531 AC0Koa HyNWaD eUC8mr 84%3D INTERFACE [facility] [address], [place], [address], 02/15/2024 11:08:02 02/15/20 24 02/15/2024 XR, ankle , 3 or more view [email or web address] ?Encry pted=s hAaTro YD8dLq bEUv6g %2BXZw aYqtaq 0bqfl% 2Fg9IQ a4ajBk vP9nXo QUaueC m3YtLR FvZl JJ8[place] HZtai3 3a9172 AC0Koa HyNWaP eUC8mr 84%3D INTERFACE [facility] [address], [place], [address], 02/15/2024 11:10:08 02/15/20 24 02/15/2024 XR, ankle , 3 or more view [email or web address] ?Encry pted=s hAaTro YD8dLq bEUv6g %2BXZw aYqtaq 0bqfl% 2Fg9IQ a4ajBk vP9nXo QUaueC m3YtLR Zl [facility] 6e4204 AC0Koa HyNWaP eUC8mr 84%3D INTERFACE [facility] [address], [place], [address], 02/15/2024 11:10:10 02/16/[address], ankle + foot, w/o contr ast No observ ation record ed. [email or web address] Not Available 2023 15:11:58 Result Notes None recorded. Procedures Surgical History Date Name Laterality Status Provider Name and Address Organization Details Recorded Time 4 Cast Removal completed Mary Pederson [place] - [facility] 02/22/2024 12:07:49 4 Cast_Short Leg_11+ completed JOHN GARZA [facility] 02/18/2024 12:59:56 4 Cast Removal completed JOHN GARZA [facility] 02/18/2024 12:57:56 Imaging Results Imaging Date Name Status LastModified by Organiz ation Details LastModified Time 02/15/2024 XR, foot, 2 view completed INTERFACE [facility] [address], [place], [address], 02/15/2024 11:08:00 02/15/2024 XR, foot, 2 view completed INTERFACE [facility] [address], [place], [address], 02/15/2024 11:08:02 02/15/2024 XR, ankle, 3 or more view completed INTERFACE [facility] [address], [place], [address], 02/15/2024 11:10:08 02/15/2024 XR, ankle, 3 or more view completed INTERFACE [facility] [address], [place], [address], 02/15/2024 11:10:10 02/16/2024 CT, ankle + foot, w/o contrast completed Information not available 02/16/2024 15:11:58 Procedure Notes None recorded. Medical Equipment None Reported. Allergies Allergen ID Allergen Name Allergen Category Reaction Reaction Severity Criticality Documentation Date Start Date Code Code System Note Provider Name and Address Organization Details Recorded Time 922616 Topamax medicatio n Not available Not available Not available 02/15/2024 73665 3 [facility] 4 11:55:06 170807 Depakote medicatio n Not available Not available Not available 02/15/2024 13383 9 RxNorm [facility] med[facility] [place] [facility] 4 11:55:10 Medications Name Sig [...] Updated DateTime 03/31/2024 157.48 cm 28 kg/m2 75069.63 g Leydi Avalos [facility] 03/31/2024 11:20:03 Date Recorded Body height Body mass index (BMI) Body weight Provider Name and Address Organization Details Last Updated DateTime 05/16/2024 157.48 cm 28 kg/m2 00355.63 g [place] [facility] 05/16/2024 10:06:35 Date Recorded Body height Body mass index (BMI) Body weight Provider Name and Address Organization Details Last Updated DateTime 07/07/2024 157.48 cm 28 kg/m2 06754.63 g EDISON FERGUSON [facility] 07/07/2024 13:31:06 Social History None recorded. Functional Status None recorded. Mental Status None recorded. Family History Nothing Reported. Medical History No medical history recorded. Gynecological HistoryNo gynecological history recorded. Obstetrics History GPAL:G 0 P 0 0 0 0 Past Encounters Encounter ID Performer Location Encounter Start Date Encounter Closed Date Diagnosis/Indication Diagnosis SNOMED-CT Code Diagnosis ICD10 Code Diagnosis Note [id number] MD Yary Jones [address] [place] [address] 02/15/2024 10:54:15 03/15/2024 10:13:08 Ankle pain 552050739 M25.572 Sprain of left ankle 194 6633009 9985051 S93.402A Closed fra cture of lateral malleolus of left fibula 1308977364 1566998 S82.65XA [id number] MD Erik Jonese [address] [place] [address] 02/18/2024 12:13:19 02/18/2024 13:00:30 Fracture of ankle 80895155 S82.65XA [id number] Haris Carroll MD [facility] [address] [place] [address] 02/22/2024 10:57:56 02/22/2024 12:11:51 Sprain of left ankle 8805711349 0268967 S93.402A Sprain of lateral ligament of ankle joint 742165269 S93.492D [id number] Haris Carroll MD [facility] [address] [place] [address] 03/01/2024 11:09:22 03/25/2024 10:43:23 Sprain of left ankle 0920437001 5710880 S93.402A [id number] Denice Winston PA-C [facility] [address] [place] [address] 03/31/2024 11:04:57 05/05/2024 09:25:42 Sprain of left ankle 2260753397 9439290 S93.402A [id number] [facility] [address] [address] [place] [address] 05/16/2024 09:04:09 06/01/2024 20:41:20 Ankle pain 551992771 M25.502 [id number] Denice Winston PA-C [facility] [address] floor [address] [place] [address] 07/07/2024 13:13:01 07/28/2024 11:52:44 Ankle pain 140686619 M25.579 Health Concerns Section Related Observation LastModified by Organization Detai ls LastModified Time None Recorded Concern Status LastModified by Organization Details LastModified Time None Recorded Advance Directives Directive None Recorded Payers Encounter Date Sequence Insurance Name Policy Number Policy Pearson Covered Member ID Pearson Member ID Guarantor Name 02/22/2024 1 [employer] (MEDICARE REPLACEMENT PPO) [id number] Linda Gonzalez [id number] Abril Shipleyon 02/22/2024 2 [place] Abril Mckeon Gonzalez [id number] Abril Shipleyon 03/01/2024 1 [employer] (MEDICARE REPLACEMENT PPO) [id number] Linda Shipleyon [id number] Abril Shipleyon 03/01/2024 2 [place] Abril Mckeon Gnozalez [id number] Abril Songahon 03/31/2024 2 [place] Abril Mckeon Gonzalez [id number] Abril Songahon 03/31/2024 1 [place] [employer] [employer] Abril Songahon [id number] Abril Songahon 05/16/2024 1 [place] [facility] Abril Mckeon Gonzalez [id number] Abril Songahon 05/16/2024 2 [place] Abril Mckeon Gonzalez [id number] Abril Shipleyon 07/07/2024 1 [place] Abril Mckeon Gonzalez [id number] Abril Shipleyon 07/07/2024 2 [place] Abril Mckeon Gonzalez [id number] Abril Gonzalez Notes Date Note Type Note [...] side effects discussed. Denice Winston PA-C [address] [facility] [address] [facility], [place], [address], [facility] 03/31/2024 12:44:58 05/16/2024 text/html Patient [...] brace as needed. She lives at a long-term and is having difficulty getting transportation. She [...] in 6-8 weeks Denice Winston PA-C [address] [facility] [address], [place], [address], [facility] 05/16/2024 11:15:34 07/07/2024 text/html Patient [...] a bad sprain. She lives at a long-term and is having difficulty getting transportation. She [...] full duty work. Denice Winston PA-C [address] [facility] [address], [place], [address], [facility] 07/07/2024 14:01:30 OBGyn Episode No OBEpisode recorded.
--- OUTSIDE RECORDS SUMMARY | 2024-10-23 13:43 | XMS_ITS | Patient Health Record ---
Author Organization [facility] Address [address] [place] [address] Care Team Providers Care Collections Officer Name Role Phone SHANITA JONES Primary Care [...] Risk Notes Problem Lumbosacral spondylosis without myelopathy (98758001) Spondylosis without myelopathy or radiculopathy, lumbar region (M47.816) Active confirmed Plan Of Treatment No Information Insurance Providers Payer Name Payer Address Payer Phone Subscriber Number Group Number Insured Name Patient Relationship to Insured Coverage Start Date Coverage End Date Medicare B [facility] [address] [place] [id number] RAMIREZ RILEYE Self - patient is the insured [employer] of [place] [address] [place] [address] [id number] RAMIREZ RILEYE Self - patient is the [...]
--- NOTE | 2024-10-23 14:01 | ECG_ITS ---
Test Reason : cp Blood Pressure : */* mmHG Vent. Rate : 78 BPM Atrial Rate : 78 BPM P-R Int : 160 ms QRS Dur : 96 ms QT Int : 408 ms P-R-T Axes : 68 30 74 degrees QTcB Int : 465 ms Normal sinus rhythm Low voltage QRS Borderline ECG When compared with ECG of 17-Aug-2024 12:30, Questionable change in QRS axis Referred By: Franchesca Du Electronically Signed By: Francisco Patel
[2024-10-23 14:05] VITALS: BP 114/40; PULSE 80; RESP 17; O2SAT 98
[2024-10-23 14:46] LABS: MANUAL DIFF FLAG NO
[2024-10-23 14:47] LABS: Basophils Absolute Auto 0.1 X10*3/uL (0.0-0.2); Basophils Percent Auto 0.7 % (0-2); Eosinophils Absolute Auto 0.1 X10*3/uL (0.0-0.4); Eosinophils Percent Auto 1.3 % (0-4); Hematocrit 43.2 % (37.0-47.0); Imm Gran Abs Auto 0.04 X10*3/uL (0.00-0.03); Imm Gran Pct Auto 0.4 % (0.0-0.4); Lymphocytes Absolute Auto 4.3 X10*3/uL (1.2-4.9); Lymphocytes Percent Auto 40.6 % (20-40); Mean Corpuscular HGB Conc 34.7 g/dl (31.0-35.0); Mean Corpuscular Hemoglobin 31.3 pg (27.0-33.0); Mean Platelet Volume 9.3 fL (9.4-12.3); Monocytes Absolute Auto 0.5 X10*3/uL (0.1-1.2); Monocytes Percent Auto 5.1 % (2-11); Neutrophils Absolute Auto 5.5 x10*3/uL (2.0-8.3); Neutrophils Percent Auto 51.9 % (45-73); Platelet Count 295 X10*3/uL (160-400); Red Cell Distribution Width 14.3 % (11.0-16.0); White Blood Count 10.5 X10*3/uL (4.8-10.8)
[2024-10-23 14:48] LABS: Appearance Urine Clear; Color Urine Yellow; Glucose Urine UA Negative (Negative); Leukocyte Esterase Urine Negative (Negative); Nitrite Urine Negative (Negative); Urine Blood Negative (Negative); Urine Ketones Negative (Negative); Urine Protein Negative (Neg-Trace)
[2024-10-23 15:16] LABS: Alanine Aminotransferase 20 U/L (0-31); Albumin Level 4.5 g/dL (3.5-5.0); Alkaline Phosphatase 62 U/L (39-117); Anion Gap 12 (12-20); Aspartate Amino Transferase 19 U/L (5-31); Bilirubin Direct < 0.2 mg/dL (0.0-0.5); Bilirubin Total 0.2 mg/dL (0.0-1.0); Blood Urea Nitrogen 11 mg/dL (9-16); Calcium 9.5 mg/dL (8.4-10.2); Carbon Dioxide 26 mmol/L (22-29); Chloride 108 mmol/L (96-108); Creatinine Clr Calc Pharmacy 102.6; Estimated Glomerular Filt Rate > 60; Glucose Random 88 mg/dL (60-115); Magnesium 2.4 mg/dL (1.6-2.6); Sodium 142 mmol/L (135-145); Total Protein 7.1 g/dL (6.5-8.0); Troponin-I High Sensitivity < 2.7 ng/L (<3.5-17.0)
[2024-10-23 15:26] LABS: Influenza A PCR NEGATIVE (Negative); Influenza B PCR NEGATIVE (Negative); Resp Syncy Virus RNA Qual PCR NEGATIVE (Negative); SARS COV2 PCR INHOUSE NEGATIVE (Negative)
[2024-10-23 15:31] LABS: TSH reflex Free T4 0.86 uIU/mL (0.32-4.0)
[2024-10-23 16:06] VITALS: BP 107/48; PULSE 83; RESP 16; TEMP 36.7; O2SAT 97
[2024-10-23 16:22] VITALS: BP 107/48; PULSE 83; RESP 16; TEMP 36.7; O2SAT 97
== END 2024-10-23 16:23 | disposition home or self-care (01) ==
PROVIDERS: Physician Assistant Medical; Emergency Provider Emergency Medicine; PCP Physician Assistant
DX: R07.89 Other chest pain (principal); R53.83 Other fatigue; M54.9 Dorsalgia, unspecified; G89.29 Other chronic pain; E78.5 Hyperlipidemia, unspecified; F17.210 Nicotine dependence, cigarettes, uncomplicated; Z03.818 Encounter for observation for suspected exposure to other biological agents ruled out; Z59.00 Homelessness unspecified
CPT/HCPCS: 0241U; 36415; 71046; 80048; 80076; 81003; 83735; 84443; 84484; 85025; 93005; 99283; 99284

== ENCOUNTER → 2024-10-23 14:01 | Outpatient (BNV) | payer MEDICARE, MEDICAID, SELFPAY | PROVIDERS: Emergency Provider Emergency Medicine; PCP Physician Assistant; Visit Provider Radiology Diagnostic Radiology | DX: R07.9 Chest pain, unspecified (principal) | CPT/HCPCS: 71046 ==

== ENCOUNTER → 2024-10-23 14:01 | Outpatient (BNV) | payer MEDICARE, MEDICAID, SELFPAY | PROVIDERS: Emergency Provider Emergency Medicine; PCP Physician Assistant; Visit Provider Internal Medicine Cardiovascular Disease | DX: R07.9 Chest pain, unspecified (principal) | CPT/HCPCS: 93010 ==

== ENCOUNTER 2024-10-25 10:15 | Outpatient (AMB) | payer MEDICARE, MEDICAID, SELFPAY ==
[2024-10-25 10:27] VITALS: BP 108/72; PULSE 78; TEMP 36.3; O2SAT 98; BMI 29.1
--- NOTE | 2024-10-25 10:27 | MHC.PC.OV ---
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 Required: No Accompanied by: Self / Same As Patient Allergies topiramate [From TOPAMAX] Allergy (Mild, Verified 10/25/24 10:47) NAUSEA & VOMITING divalproex sodium [From DEPAKOTE] Adverse Reaction (Unknown, Verified 10/25/24 10:47) NAUSEA & VOMITING Medication List - Last Reconciled 10/25/24 by Rudy Barth PA-C acetaminophen 500 mg PO Q6H PRN [id number] [id number] mg 1 cap PO Q6H PRN cyclobenzaprine 10 mg PO BID PRN diclofenac sodium 75 mg PO BID gabapentin 300 mg PO BID 30 days hyoscyamine sulfate 0.125 mg PO QID PRN lidocaine 5% (DermacinRx Lidocan) 1 patch topical Q24H multivitamin 1 tab PO DAILY paroxetine HCl 20 mg PO DAILY PRN Tobacco use date assessed: 10/25/24 Dental Screening Dental Screen Date: 10/25/24 Did you have a dental visit in the last 12 months?: Yes Did you have a dental problem in the last 6 months where you did not have access to dental care?: No Was dental information given to patient?: Patient has dentist HPI f/u HLD HPI Details Patient is a 49-year-old female here today for follow-up visit?.? Patient has a past medical history significant for obesity, tobacco use disorder, fibromyalgia, Migraine disorder,? lumbar spine pain with sciatica, Allergic rhintits. Recently seen at [facility] for fatigue and lower back pain. Workup included blood work, EKG and chest x-ray which was all unremarkable. She did get a lower lumbar spine x-ray that did show chronic arthritis in her lower lumbar spine. She feels that her above symptoms were related to taking THC gummies in the setting of also taking prednisone and gabapentin.. .. Depression: Patient has lost follow-up with her mental health therapist at [facility]. She is feeling a bit anxious due to upcoming ovarian removal surgery. .. Hyperlipidemia:? Patient currently managing her borderline high cholesterol with lifestyle and dietary modifications. Was on statin therapy though has stopped taking this medication. Unfortunately has not gotten fasting labs done and promises do so before upcoming annual physical .. Tobacco use disorder:? Unfortunately still smoking as isabella has found it very hard to quit smoking.? Thoracic spine pain:? Most recent MRI thoracic spine shows small disc herniation in the thoracic spine. She is done physical therapy though has not been helpful. She is currently using gabapentin and cyclobenzaprine which have been helpful. She is interested in massage therapy and will seek this out on her own. [facility] Medical History Wrist pain, left Ankle pain, left Obesity Restless leg syndrome Migraine Anxiety Fibromyalgia Surgical History H/O rectal polypectomy History of surgery History of hernia repair History of wisdom tooth extraction History of tonsillectomy History of umbilical hernia repair H/O LEEP History of colectomy Family History Father CVD (cardiovascular disease) Myocardial infarction Mother Chronic mental illness Dementia Myocardial infarction, Onset Age: 40 Seizure Sister In good health Son In good health Maternal Aunt Breast CA Paternal Aunt Breast CA Other Mental health disorder Social History Household Members Other:: roommate Housing: Other Housing Other:: lives in nursing home Do you presently have visiting nurse or other home services: No Alcohol intake: former Patient Tobacco Use Status: Current everyday Tobacco user Tobacco use type: Cigarette Cigarette Packs Per Day: 1 Cigarettes Per Day: 20.0 Years Smoked: 15 e-Cigarette/Vaping Use: Never Used Second Hand Smoke Exposure: Yes Substance Use Type: Marijuana Advance Directives Date on File: 09/17/22 service: No Current occupational status: disabled Cognitive needs: No Hearing needs: No Vision needs: No Questionnaire PHQ-9 Over the last 2 weeks, how often have you been bothered by any of the following problems? 1. Little interest or pleasure in doing things: more than half the days 2. Feeling down, depressed, or hopeless: more than half the days 3. Trouble falling or staying asleep, or sleeping too much: more than half the days 4. Feeling tired or having little energy: nearly every day 5. Poor appetite or overeating: more than half the days 6. Feeling bad about yourself - or that you are a failure or have let yourself or your family down: several days 7. Trouble concentrating on things, such as reading the newspaper or watching television: several days 8. Moving or speaking so slowly that other people could have noticed. Or the opposite - being so fidgety or restless that you have been moving around a lot more than usual: several days 9. Thoughts that you would be better off or of hurting yourself in some way: several days Total score: 15 Depression Screening Interpretation: Positive Depression Screening Follow-up: Existing condition and In treatment Depression Screening Done: Yes 75315 - PHQ-9 Billing: Yes Source: Developed by Drs. Ayan Curiel, Brooke Alfaro, Reagan Veronica and colleagues, with an educational cornelia from [employer]. Thrive Questionnaire Date Thrive assessed: 10/25/24 I am a: Patient What is your living situation today?: I do not have a steady places to live I am staying at a nursing home Within the past 12 months, did the food you bought not last and you didn't have the money to get more?: Often true Within the past 12 months, did you worry whether your food would run out before you got money to buy more?: Sometimes True Do you have trouble paying for medicines?: Yes Do you have trouble getting transportation to medical appointments?: No Do you have trouble paying your heating and electricity bill?: No Do you have trouble taking care of your child, family member or friend?: No Do you have trouble with day-to-day activities such as bathing, preparing meals, shopping, managing finances, etc.?: No Are you currently unemployed and looking for a job?: No Are you interested in more education?: No Please select the resources that you would like help with: Housing/Mcc and None Currently or been in a relationship where the following occur: No concerns reported THRIVE Score: 3 AUDIT C Alcohol Use Questionnaire (AUDIT-C) 1. How often do you have a drink containing alcohol?: Never 3. How often do you have six or more drinks on one occasion?: Never Total Score: 0 SALOMON-7 AMB Questionnaire SALOMON-7 Date SALOMON - 7 assessed: 10/25/24 Feeling nervous, anxious, or on edge: 3 = Nearly every day Not being able to stop or control worryin = More than half the days Worrying too much about different things: 3 = Nearly every day Trouble relaxin = Nearly every day Being so restless that it is hard to sit still: 1 = Several days Becoming easily annoyed or irritable: 1 = Several days Feeling afraid as if something awful might happen: 2 = More than half the days Total SALOMON-7 score (0-4 normal; 5-9 mild; 10-14 moderate; 15-21 severe): 15 Source: Developed by Drs. Ayan Curiel, Brooke Alfaro, Reagan Veronica and colleagues, with an educational cornelia from [employer]. SALOMON-7 Assessment Billing SALOMON-7 Assessment Tool: SALOMON-7 Assessment 79219 Review of Systems Const Denies headache(s) Eyes Denies loss of vision ENT Denies vertigo, Denies dizziness, Denies headache(s) and Denies sore throat Card Denies chest pain, Denies leg edema and Denies lightheadedness Resp Denies cough, Denies hemoptysis and Denies wheezing GI Denies abdominal pain, Denies melena, Denies constipation, Denies diarrhea and Denies vomiting Denies urinary frequency, Denies dysuria and Denies urinary urgency Musc Denies arthralgias, Denies joint swelling, Denies numbness and Denies tingling Neuro Denies Abnormal speech present, Denies behavioral changes, Denies vertigo, Denies dizziness, Denies headache(s), Denies loss of vision, Denies memory loss, Denies numbness and Denies tingling Psych Denies anxiety, Denies behavioral changes, Denies depression, Denies memory loss and Denies panic attacks Jey/Lymph Denies easy bleeding and Denies easy bruising Aller/Immun Denies wheezing Physical exam (Primary Care) Vital Signs: Last Vital Signs Temp 97.3 F 10/25/24 10:27 Pulse 78 10/25/24 10:27 BP 108/72 10/25/24 10:27 Pulse Ox 98 10/25/24 10:27 Oxygen Delivery Method Room Air 10/25/24 10:27 BMI result Body Mass Index 29.1 Tobacco/Smoking Status: Tobacco use Status Tobacco use date assessed 10/25/24 10/25/24 10:39 Patient Tobacco Use Status Current everyday Tobacco 10/25/24 10:39 Tobacco use type Cigarette 10/25/24 10:39 e-Cigarette/Vaping Use Never Used 10/25/24 10:39 PHQ-9: PHQ-9 Score PHQ-9: Total score 15 10/25/24 10:53 Depression Screening Interpretation: Positive Depression Screening Follow-up: Existing condition and In treatment Thrive Assessment: Date of Thrive Assessment Date Thrive assessed 10/25/24 10/25/24 10:39 Currently or been in a relationship where the following occur: No concerns reported Const General: healthy appearing, no acute distress, alert and awake Nutritional Appearance: well nourished Orientation/consciousness: oriented to person, oriented to place and oriented to time HENMT Ears: TM's normal bilaterally General nose exam: Normal nasal mucous membranes and turbinates present Eyes Conjunctivae: conjunctivae normal Sclerae: sclerae normal Pupils: Equal, round and reactive pupils present Neck Neck: Yes no lymphadenopathy and Yes no JVD Thyroid: Thyroid normal Carotids: no bruits Resp Effort & Inspection: normal respiratory effort and not tachypneic Auscultation: no crackles, no rales, no rhonchi and no wheezes Cardio Rate: regular rate Rhythm: regular rhythm Heart sounds: no murmurs and normal S1 and S2 GI Palpation (GI): Soft to palpation, nontender, no hepatomegaly and no splenomegaly Auscultation: normal bowel sounds Skin General skin exam: no rashes or lesions noted and dry skin Neuro General: oriented to person, oriented to place and oriented to time Cranial nerves: Yes Equal, round and reactive pupils present Speech: No Abnormal speech present Gait exam (Neuro): Normal gait present Motor exam (neuro): no tremor noted Extrem Right upper extremity: full ROM Left upper extremity: full ROM Right lower extremity: full ROM; no edema Left lower extremity: full ROM; no edema Psych Mental Status: mental status grossly normal Speech and movement: Normal speech and movement present Affect: normal affect Attitude: cooperative Thought process: Normal thought process present Coding Level of Care Code Est Pt Level 4 (44128) Diagnoses Mixed hyperlipidemia E78.2 Hyperlipidemia type: mixed hyperlipidemia Smoker F17.200 MDD (major depressive disorder), recurrent episode, moderate F33.1 Thoracic radiculitis M54.14 Additional Codes SALOMON-7 Assessment Billing - SALOMON-7 Assessment Tool: SALOMON-7 Assessment 03136 ([id number]) PHQ-9 - 90821 - PHQ-9 Billing: Yes ([id number]) Assessment & Plan Assessment & Plan (1) HLD (hyperlipidemia): Code(s): E78.5 - Hyperlipidemia, unspecified Category: Medical Qualifiers: Hyperlipidemia type: mixed hyperlipidemia Qualified Code(s): E78.2 - Mixed hyperlipidemia Plan: Patient's most recent lipid panel showing decent control over total cholesterol and LDL. She will work on lifestyle and dietary modifications to control her cholesterol at this time. Unfortunately still smoking does understand she needs to quit smoking. Goal LDL to be below 130 (2) Smoker: Code(s): F17.200 - Nicotine dependence, unspecified, uncomplicated Category: Social Hx Plan: As above patient does understand she needs to quit smoking. She has been smoking over 25 years in his interested in lung cancer screening thus will place referral to thoracic surgery program (3) MDD (major depressive disorder), recurrent episode, moderate: Code(s): F33.1 - Major depressive disorder, recurrent, moderate Category: Medical Plan: Patient's PHQ-9 score positive for depression which has been existing condition for her. She continues on SSRI therapy with paroxetine 20 mg As per HPI patient has a long history of depression. She now has a mental health therapist at and. (4) Thoracic radiculitis: Code(s): M54.14 - Radiculopathy, thoracic region Category: Medical Plan: As per HPI patient has a long history of thoracic lumbar radiculitis. She uses cyclobenzaprine and NSAIDs as needed. She is followed by [facility] and will discuss pain reduction modalities. She is really not open to injections at this time. Orders: Referrals Thoracic/General Surgery Referral F17.200 - Nicotine dependence, unspecified, uncomplicated Medications: Changed From cyclobenzaprine 10 mg PO BID PRN muscle spasm To cyclobenzaprine 10 mg PO BID PRN 60 tabs 3RF muscle spasm 30 days
--- OUTSIDE RECORDS SUMMARY | 2024-10-25 12:05 | XMS_ITS | Patient Health Record ---
Author Organization [facility] Address [address] [place] [address] Care Team Providers Care Block Saw Operator Name Role Phone SHANITA JONES Primary Care [...] Risk Notes Problem Lumbosacral spondylosis without myelopathy ([id number]) Spondylosis without myelopathy or radiculopathy, lumbar region (M47.816) Active confirmed Plan Of Treatment No Information Insurance Providers Payer Name Payer Address Payer Phone Subscriber Number Group Number Insured Name Patient Relationship to Insured Coverage Start Date Coverage End Date Medicare B [facility] [address] [place] [phone] [id number] RAMIREZ RILEYE Self - patient is the insured [employer] of [place] [address] [place] [phone] [id number] RAMIREZ RILEYE Self - patient is the [...]
== END 2024-10-25 11:14 | disposition home or self-care (01) ==
LOC: HO.HMCH 10:15
PROVIDERS: PCP Physician Assistant; Visit Provider Physician Assistant
DX: E78.2 Mixed hyperlipidemia (principal); F17.200 Nicotine dependence, unspecified, uncomplicated; F33.1 Major depressive disorder, recurrent, moderate; M54.14 Radiculopathy, thoracic region

== ENCOUNTER → 2024-10-25 10:15 | Outpatient (BNVA) | payer MEDICARE, MEDICAID, SELFPAY | PROVIDERS: PCP Physician Assistant; Visit Provider Physician Assistant | DX: E78.2 Mixed hyperlipidemia (principal); F33.1 Major depressive disorder, recurrent, moderate; M54.14 Radiculopathy, thoracic region; G43.909 Migraine, unspecified, not intractable, without status migrainosus; E78.5 Hyperlipidemia, unspecified; F17.210 Nicotine dependence, cigarettes, uncomplicated | CPT/HCPCS: 96127; 99212 ==

== ENCOUNTER 2024-11-03 10:42 | Outpatient (AMB) | payer MEDICARE, MEDICAID, SELFPAY ==
--- NOTE | 2024-11-03 10:44 | MHC.OFFVIS ---
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 She reports that her pain started 4 years ago the reason of her pain is unknown. She reports that her pain is very severe today her pain is 8/10 and she has sometimes pain 9 in the 9.5/10 with motions and weather changes. She reports that her pain onset was gradual. She is currently working part-time. She is self mobile. Weather changes in standing and walking aggravate her pain. Heat applications and cold applications make her pain slightly better. In terms of tissue damage he describes her pain as pulsing throbbing shooting stabbing sharp tingling dull tiring exhausting piercing and tight sensation. In the past she tried NSAIDs with very extensive doses including ibuprofen 800 mg and sodium diclofenac as well as Flexeril and gabapentin she takes gabapentin 300 mg b.i.d. to t.i.d.. She had physical therapy 2 years ago she had home exercise program she reported pain aggravation with physical therapy she has adamantly refuses to go to physical therapy. She tried aquatherapy and at help her pain. She requests me to send her today for aquatherapy. She has 10s unit at home she use it sometimes and it helps her pain minimally. In the past she received epidural steroid injection by pain management [facility] and epidural steroid injection resulted in no pain improvement and she states that she was paralyzed for 3 days after the procedure. Her past medical history significant for migraine headaches fibromyalgia and arthritis. Her past surgical history significant for sigmoidectomy due to diverticulitis in 2010 umbilical hernia repair and some unknown hernia in the groin when she was teenager. She admits smoking cigarettes half pack per day for 40 years, she denies drinking alcohol drinks soda 1 bottle a day and she admits using cannabis as recreational drug. [facility] Medical History Wrist pain, left Ankle pain, left Obesity Restless leg syndrome Migraine Anxiety Fibromyalgia Surgical History H/O rectal polypectomy History of surgery History of hernia repair History of wisdom tooth extraction History of tonsillectomy History of umbilical hernia repair H/O LEEP History of colectomy Family History Father CVD (cardiovascular disease) Myocardial infarction Mother Chronic mental illness Dementia Myocardial infarction, Onset Age: 40 Seizure Sister In good health Son In good health Maternal Aunt Breast CA Paternal Aunt Breast CA Other Mental health disorder Social History Household Members Other:: roommate Housing: Other Housing Other:: lives in residential Do you presently have visiting nurse or other home services: No Alcohol intake: former Patient Tobacco Use Status: Current everyday Tobacco user Tobacco use type: Cigarette Cigarette Packs Per Day: 1 Cigarettes Per Day: 20.0 Years Smoked: 15 e-Cigarette/Vaping Use: Never Used Second Hand Smoke Exposure: Yes Substance Use Type: Marijuana Advance Directives Date on File: 09/17/22 service: No Current occupational status: disabled Cognitive needs: No Hearing needs: No Vision needs: No Review of Systems Const Reports no additional complaints Eyes Reports no additional complaints ENT Reports Normal hearing present Card Reports no additional complaints Resp Reports no additional complaints GI Reports as per HPI Reports no additional complaints Musc Reports as per HPI Neuro Reports no additional complaints, Reports Normal hearing present, Denies Abnormal speech present, Denies confusion and Denies Sensory deficit (Neuro) Psych Reports no additional complaints and Denies confusion Jey/Lymph Reports no additional complaints Physical Exam Const General: no acute distress; No confusion Orientation/consciousness: patient oriented x3 and No confusion Eyes General: appearance normal, both eyes and all related structures Pupils: Equal, round and reactive pupils present EOM: EOMs intact bilaterally Neck Neck: Yes full ROM Chest Chest palpation & inspection: normal inspection of the chest Resp Effort & Inspection: normal respiratory effort, able to speak in complete sentences, normal respiratory pattern, no audible wheezes and no cough Cardio Jugular venous distension: no JVD GI Inspection: Yes normal to inspection Back/Spine/Pelvis Other: There is severe tenderness on palpation in paraspinal spinal region thoracic spine as well as tenderness on palpation in the paraspinal spinal region lumbar spine SLR is negative bilaterally,Lassegue test is negative bilaterally, Steven test is positive on the right and negative on the left, pelvic compression test is negative bilaterally pelvic distraction test is equivocal bilaterally. Flexing forward aggravates her pain but less than flexing backwards. Loading test is positive bilaterally. Valsalva maneuver is negative for pain increase. Neuro General: patient oriented x3, gait normal and No confusion Cranial nerves: Yes CN's II-XII intact bilaterally, Yes Equal, round and reactive pupils present, Yes Normal hearing present and Yes Ability to bilaterally elevate shoulders present Speech: No Abnormal speech present Gait exam (Neuro): Normal gait present Motor exam (neuro): 5/5 motor strength present throughout Sensory Exam: No Sensory deficit (Neuro) Extrem General: No pedal edema Psych Speech and movement: Normal speech and movement present Affect: normal affect Attitude: cooperative Thought process: Normal thought process present Thought content: Normal thought content present Insight: Good insight present (Psych) Judgement: Good judgement present (Psych) Results Reviewed Results Reviewed: MRI of the thoracic spine was obtained using routine sequences without contrast. 2022 FINDINGS: The thoracic vertebral bodies maintain normal heights and alignment. Mild disc height loss is seen within the mid thoracic spine. No bone marrow edema is seen. The thoracic cord signal appears normal. A small left paracentral protrusion is seen at T7-T8. No other disc herniation is seen. The thoracic spinal canal and neural foramina are widely patent. The extraspinal soft tissues are unremarkable. IMPRESSION: No significant abnormality in the thoracic spine. No spinal canal or neural foraminal stenosis. R LUMBAR SPINE WITHOUT CONTRAST CLINICAL INFORMATION: Lumbar radiculopathy. COMPARISON: MRI scan of the lumbar spine 03/18/2016. CT scan of the lumbar spine 08/09/2019. TECHNIQUE: MRI of the lumbar spine was obtained using routine sequences without contrast. FINDINGS: VERTEBRAL BODIES AND PARASPINAL STRUCTURES: There is anatomic alignment of the vertebral bodies. There is mild narrowing of intervertebral disc height at L4-L5 with loss of signal. Vertebral body heights are maintained, and no fractures are demonstrated. Overall, marrow signal is homogenous. The visualized retroperitoneal structures are unremarkable. The study partially redemonstrates right adnexal cysts. CONUS MEDULLARIS AND CAUDA EQUINA: Normal, terminating at the level of L1-L2. The lower thoracic spinal cord has normal signal. The cauda equina nerve roots appear normal. The study redemonstrates mild fatty signal in a non-thickened filum terminale. SPINAL LEVELS: L1-L2: The facet joints appear normal. Disc contour is normal. There is no central stenosis or foraminal narrowing. L2-L3: There is mild bilateral facet arthropathy. Disc contour is normal. There is no central stenosis or foraminal narrowing. L3-L4: There is mild bilateral facet arthropathy. Disc contour is normal. There is no central stenosis or foraminal narrowing. L4-L5: There is mild to moderate bilateral facet arthropathy, not significantly changed compared to prior imaging. There is a small diffuse disc bulge with an annular fissure with mild flattening of the ventral thecal sac. The neural foramina are patent and there is no central stenosis. L5-S1: There is moderate bilateral facet arthropathy. Posterior disc contour is normal. There is no central stenosis and the neural foramina are patent bilaterally. IMPRESSION: 1. The study redemonstrates facet arthropathy at L4-L5 and there is a diffuse disc bulge with mild flattening of the ventral thecal sac. There is no central stenosis or foraminal narrowing. Mild facet arthropathic changes are demonstrated at other levels as described above. 2. The study redemonstrates partially visualized right adnexal cysts. Assessment & Plan Assessment & Plan (1) Spondylosis of lumbar region without myelopathy or radiculopathy: Code(s): M47.816 - Spondylosis without myelopathy or radiculopathy, lumbar region Category: Medical (2) Spondylosis of thoracic region without myelopathy or radiculopathy: Code(s): 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 Category: Medical (3) Intractable low back pain: Code(s): M54.59 - Other low back pain Category: Medical Plan On MRI of thoracic and lumbar spine there is significant facet arthropathy especially in lumbar area. The patient is suffering from intractable lower back pain. She exhausted conservative measures to help her pain including physical therapy, home exercise program, NSAIDs,TENs unit, NOTHING HELPS HER PAIN. I offered this patient for treatment of her pain lumbar sprint PNS bilateral L3 POSITIONED, possible to possible L4. 1st on the right and next on the left, I explained to the patient risks benefits and details of the procedure. Patient expressed understanding. She is scheduled for laparoscopic surgery in few days. Without complications the surgery will be easily tolerated. I also recommended her to go for aquatic therapy, I will give her an open order for aquatic therapy. She can bring this order to her local physical therapy office with aquatic facility after she recovers from laparoscopic surgery. Orders: Orders PT Evaluation and Treatment Today 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, M47.816 - Spondylosis without myelopathy or radiculopathy, lumbar region Patient Instructions: I here by testify that I spent 45 minutes in conversation with this patient as well as evaluating her prior records and diagnostic studies as well as planning her care and organizing this note. Coding Level of Care Code New Pt Level 4 (54407) Diagnoses Spondylosis of lumbar region without myelopathy or radiculopathy M47.816 Spondylosis of thoracic region without myelopathy or radiculopathy M47.814 Intractable low back pain M54.59
[2024-11-03 10:51] VITALS: BP 156/67; PULSE 91; O2SAT 96; BMI 29.2
--- OUTSIDE RECORDS SUMMARY | 2024-11-03 12:58 | XMS_ITS | Patient Health Record ---
Author Organization [facility] Address [address] [place] [address] Care Team Providers Care Architectural Sales Consultant Name Role Phone SHANITA JONES Primary Care [...] Risk Notes Problem Lumbosacral spondylosis without myelopathy ([id number]) Spondylosis without myelopathy or radiculopathy, lumbar region (M47.816) Active confirmed Plan Of Treatment No Information Insurance Providers Payer Name Payer Address Payer Phone Subscriber Number Group Number Insured Name Patient Relationship to Insured Coverage Start Date Coverage End Date Medicare B [facility] [address] [place] [phone] [id number] RAMIREZ RILEYE Self - patient is the insured [employer] Medicaid of [place] [address] [place] [address] [id number] RAMIREZ RILEYE Self - patient is the [...]
== END 2024-11-03 11:13 | disposition home or self-care (01) ==
LOC: HO.PMC 10:42
PROVIDERS: PCP Physician Assistant; Referring Provider Nurse Practitioner Family; Visit Provider Anesthesiology
DX: M47.816 Spondylosis without myelopathy or radiculopathy, lumbar region (principal); M47.814 Spondylosis without myelopathy or radiculopathy, thoracic region; M54.59 Other low back pain
CPT/HCPCS: 99204

== ENCOUNTER → 2024-11-03 10:42 | Outpatient (BNVA) | payer MEDICARE, MEDICAID, SELFPAY | PROVIDERS: PCP Physician Assistant; Referring Provider Nurse Practitioner Family; Visit Provider Anesthesiology | DX: M79.7 Fibromyalgia (principal); M47.816 Spondylosis without myelopathy or radiculopathy, lumbar region; M47.814 Spondylosis without myelopathy or radiculopathy, thoracic region | CPT/HCPCS: 99202 ==

== ENCOUNTER → 2024-12-05 07:24 | Outpatient (BNV) | payer MEDICARE, MEDICAID, SELFPAY | PROVIDERS: PCP Physician Assistant; Visit Provider Radiology Diagnostic Radiology | DX: M47.816 Spondylosis without myelopathy or radiculopathy, lumbar region (principal); M99.63 Osseous and subluxation stenosis of intervertebral foramina of lumbar region | CPT/HCPCS: 72148 ==

== ENCOUNTER 2024-12-05 07:27 | Outpatient (REF) | payer MEDICARE, MEDICAID, SELFPAY ==
--- NOTE | ~2024-12-05 | MR_ITS ---
EXAMINATION: MR LUMBAR SPINE WITHOUT CONTRAST CLINICAL INFORMATION: Radiculopathy, lumbar region. COMPARISON: May 31, 2021. TECHNIQUE: MRI of the lumbar spine was obtained using routine sequences without contrast. FINDINGS: Limited by patient's motion artifact. Last rib-bearing vertebra labeled T12. Decreased intervertebral disc height and signal at L4-5. Grade 1 retrolisthesis, L4-5. Modic type I endplate changes at L4-5. Subtle bone marrow STIR signal on the right pedicle and facet of L5. Conus medullaris ends at pedicle of L1 with normal signal. T12-L1: No herniated disc. No neuroforamina stenosis. L1-2: No herniated disc. No neuroforamina stenosis. L2-3: No herniated disc. No neuroforamina stenosis. L3-4: No herniated disc. No neuroforamina stenosis. L4-5: Broad-based disc bulging. Facet joint hypertrophy. No central spinal canal stenosis. Right neuroforamina narrowing encroaching the right L4 exiting nerve root on a degenerative basis. L5-S1: Broad-based disc bulging. No central spinal canal stenosis. No gross neuroforamina stenosis. No prevertebral compartment hematoma, mass or fluid collection. Asymmetric volume loss right psoas muscle. MR/MR lumbar spine wo con IMPRESSION: Spondylosis at L4-5 resulting in right and to a lesser extent left neuroforamina and narrowing encroaching the right L4 exiting nerve root. Electronically signed by: Romero Molina MD 12/05/2024 09:51 AM EDT
--- OUTSIDE RECORDS SUMMARY | 2024-12-05 07:29 | XMS_ITS | Data Portability ---
Author Organization [facility], [facility] Address [address] [place] [address] Care Team Providers Care Community Service Representative Name Role Phone SAHNITA MARTIN Primary Care Provider [phone] Assessment Encounter Date Assessment Date Assessment LastModified by Organization Details LastModified Time 03/01/2024 03/01/2024 Telemedicine Telephone Encounter Patient Location: Home Physician Location: [facility] Office [place], [place] Time spent with patient: 12 mins [...] inversion sprain. She currently lives in a assisted. She was seen at [facility] where x-rays were negative. She later saw [...] the same service when rendered via a [id number]-zi-omym interaction. I discussed with the patient the [...] meloxicam 15 mg tablet 2023 024 [email or web address] [id number], [address] [place], [place], [id number], 12:11:54 meloxicam 15 mg tablet [address] [id number], [address] [place], [place], [id number], 15:05:00 Patient TargetsNo targets recorded. Patient InstructionsNo instructions recorded. Reason for Referral Physical Therapist Referral for Sprain of left ankle left ankle rehab rom, stretch, strengthening Referring Physician: Denice Winston, Orthopedic Surgery, Encounter Date: 03/31/2024 Results Created Date Observation Date Name Description Value Unit Range Abnormal Flag Note LastModifiedBy Organization Detail LastModifiedTime 02/15/20 24 02/15/2024 XR, foot, 2 view http:/ [email or web address] ?Encry pted=s hAaTro YD8dLq bEUv6g %2BXZw aYqtaq 0bqfl% 2Fg9IQ a4ajBk vP9nXo QUaueC m3YtLR FvZlgJ JJ8mAn HZtai3 1t0716 AC0Koa HyNWaD eUC8mr 84%3D INTERFACE [facility] [address] [facility] [address], [place], [address], 02/15/2024 11:08:00 02/15/20 24 02/15/2024 XR, foot, 2 view http:/ [email or web address] ?Encry pted=s hAaTro YD8dLq bEUv6g %2BXZw aYqtaq 0bqfl% 2Fg9IQ a4ajBk vP9nXo QUaueC m3YtLR FvZl JJ8[place] HZtai3 7p5423 AC0Koa HyNWaD eUC8mr 84%3D INTERFACE [facility] [address], [place], [address], 02/15/2024 11:08:02 02/15/20 24 02/15/2024 XR, ankle , 3 or more view http:/ [email or web address] ?Encry pted=s hAaTro YD8dLq bEUv6g %2BXZw aYqtaq 0bqfl% 2Fg9IQ a4ajBk vP9nXo QUaueC m3YtLR FvZl JJ8[place] HZtai3 6q9884 AC0Koa HyNWaP eUC8mr 84%3D INTERFACE [facility] [address], [place], [address], 02/15/2024 11:10:08 02/15/20 24 02/15/2024 XR, ankle , 3 or more view [email or web address] ?Encry pted=s hAaTro YD8dLq bEUv6g %2BXZw aYqtaq 0bqfl% 2Fg9IQ a4ajBk vP9nXo QUaueC m3YtLR Zl [facility] 7y2197 AC0Koa HyNWaP eUC8mr 84%3D INTERFACE [facility] [address], [place], [address], 02/15/2024 11:10:10 02/16/[address], ankle + foot, w/o contr ast No observ ation record ed. [email or web address] Not Available 2023 15:11:58 Result Notes None recorded. Procedures Surgical History Date Name Laterality Status Provider Name and Address Organization Details Recorded Time 4 Cast Removal completed Mary Pederson [place] - [facility] 02/22/2024 12:07:49 4 Cast_Short Leg_11+ completed JOHN GARZA [facility] 02/18/2024 12:59:56 4 Cast Removal completed JOHN GARZA [facility] 02/18/2024 12:57:56 Imaging Results Imaging Date Name Status LastModified by Organiz ation Details LastModified Time 02/15/2024 XR, foot, 2 view completed INTERFACE [facility] [address], [place], [address], 02/15/2024 11:08:00 02/15/2024 XR, foot, 2 view completed INTERFACE [facility] [address], [place], [address], 02/15/2024 11:08:02 02/15/2024 XR, ankle, 3 or more view completed INTERFACE [facility] [address], [place], [address], 02/15/2024 11:10:08 02/15/2024 XR, ankle, 3 or more view completed INTERFACE [facility] [address], [place], [address], 02/15/2024 11:10:10 02/16/2024 CT, ankle + foot, w/o contrast completed [email or web address] Information not available 02/16/2024 15:11:58 Procedure Notes None recorded. Medical Equipment None Reported. Allergies Allergen ID Allergen Name Allergen Category Reaction Reaction Severity Criticality Documentation Date Start Date Code Code System Note Provider Name and Address Organization Details Recorded Time 175452 Topamax medicatio n Not available Not available Not available 02/15/2024 61999 3 RxNorm ANTHONY ZHANGHENRY [facility] RICHARD medeiros [facility] 4 11:55:06 418826 Depakote medicatio n Not available Not available Not available 02/15/2024 64021 9 RxNorm ANTHONY ZHANGHENRY [facility] RICHARD medeiros [place] [facility] 4 11:55:10 Medications Name [...] Updated DateTime 03/31/2024 157.48 cm 28 kg/m2 72246.63 g Leydi Avalos [facility] 03/31/2024 11:20:03 Date Recorded Body height Body mass index (BMI) Body weight Provider Name and Address Organization Details Last Updated DateTime 05/16/2024 157.48 cm 28 kg/m2 60337.63 g [place] [facility] 05/16/2024 10:06:35 Date Recorded Body height Body mass index (BMI) Body weight Provider Name and Address Organization Details Last Updated DateTime 07/07/2024 157.48 cm 28 kg/m2 04523.63 g EDISON FERGUSON [facility] 07/07/2024 13:31:06 Social History None recorded. Functional Status None recorded. Mental Status None recorded. Family History Nothing Reported. Medical History No medical history recorded. Gynecological HistoryNo gynecological history recorded. Obstetrics History GPAL:G 0 P 0 0 0 0 Past Encounters Encounter ID Performer Location Encounter Start Date Encounter Closed Date Diagnosis/Indication Diagnosis SNOMED-CT Code Diagnosis ICD10 Code Diagnosis Note [id number] MD Yary Jones [address] [place] [address] 02/15/2024 10:54:15 03/15/2024 10:13:08 Ankle pain 733199174 M25.572 Sprain of left ankle 287 8916238 5023945 S93.402A Closed fra cture of lateral malleolus of left fibula 1553662879 3691258 S82.65XA [id number] MD Erik Jonese [address] [place] [address] 02/18/2024 12:13:19 02/18/2024 13:00:30 Fracture of ankle 94218342 S82.65XA [id number] Haris Carroll MD [facility] [address] [place] [address] 02/22/2024 10:57:56 02/22/2024 12:11:51 Sprain of left ankle 3251191338 4771491 S93.402A Sprain of lateral ligament of ankle joint 688000090 S93.492D [id number] Haris Carroll MD [facility] [address] [place] [address] 03/01/2024 11:09:22 03/25/2024 10:43:23 Sprain of left ankle 6419722840 0387351 S93.402A [id number] Denice Winston PA-C [facility] [address] [place] [address] 03/31/2024 11:04:57 05/05/2024 09:25:42 Sprain of left ankle 1590156003 2501280 S93.402A [id number] Denice iWnston PA-C [facility] [address] [place] [address] 05/16/2024 09:04:09 06/01/2024 20:41:20 Ankle pain 553866572 M25.258 [id number] Denice Winston PA-C [facility] [address] [place] [address] 07/07/2024 13:13:01 07/28/2024 11:52:44 Ankle pain 133418501 M25.579 Health Concerns Section Related Observation LastModified by Organization Detai ls LastModified Time None Recorded Concern Status LastModified by Organization Details LastModified Time None Recorded Advance Directives Directive None Recorded Payers Encounter Date Sequence Insurance Name Policy Number Policy Pearson Covered Member ID Pearson Member ID Guarantor Name 02/22/2024 1 [employer] (MEDICARE REPLACEMENT/A DVANTAGE - PPO) [id number] Abril Shipleyon [id number] Abril Shipleyon 02/22/2024 2 [place] Abril Mckeon McMahon [id number] Abril Shipleyon 03/01/2024 1 [employer] (MEDICARE REPLACEMENT/A DVANTAGE - PPO) [id number] Abril Shipleyon [id number] Abril Shipleyon 03/01/2024 2 [place] Abril A Gonzalez [id number] Abril Shipleyon 03/31/2024 2 [place] Abril A Gonzalez [id number] Abril Shipleyon 03/31/2024 1 [place] Abril Gonzalez [id number] Abril Songahon 05/16/2024 1 [place] Abril A Gonzalez [id number] Abril Shipleyon 05/16/2024 2 [place] Abril Mckeon Gonzalez [id number] Abril Shipleyon 07/07/2024 1 [place] Abril A Gonzalez [id number] Abril Shipleyon 07/07/2024 2 [place] Abril Mckeon Gonzalez [id number] Abril Gonzalez Notes Date Note Type Note [...] and side effects discussed. Denice Winston PA-C [address] [place] [address] [address] [facility] [place], [address], [facility] 03/31/2024 12:44:58 05/16/2024 text/html Patient seen und [...] brace as needed. She lives at a assisted and is having difficulty getting transportation. She [...] in 6-8 weeks Denice Winston PA-C [address] [facility] [address], [place], [address], [facility] 05/16/2024 11:15:34 07/07/2024 text/html [...] a bad sprain. She lives at a assisted and is having difficulty getting transportation. She [...] full duty work. Denice Winston PA-C [address] [facility] [address], [place], [address], [facility] 07/07/2024 14:01:30 OBGyn Episode No OBEpisode recorded.
--- OUTSIDE RECORDS SUMMARY | 2024-12-05 07:29 | XMS_ITS | Patient Health Record ---
Author Organization [facility] Address [address] [place] [address] Care Team Providers Care Private Chef Name Role Phone SHANITA JONES Primary Care [...] Risk Notes Problem Lumbosacral spondylosis without myelopathy ([id number]) Spondylosis without myelopathy or radiculopathy, lumbar region (M47.816) Active confirmed Plan Of Treatment No Information Insurance Providers Payer Name Payer Address Payer Phone Subscriber Number Group Number Insured Name Patient Relationship to Insured Coverage Start Date Coverage End Date Medicare B [facility] [address] [place] [phone] [id number] RAMIREZ RILEYE Self - patient is the insured [employer] of [place] [address] [place] [address] [id number] RAMIREZ RILEYE Self - patient is the [...]
== END 2024-12-05 07:28 | disposition home or self-care (01) ==
LOC: HO.MRI 07:27
PROVIDERS: PCP Physician Assistant; Visit Provider Physician Assistant
DX: M54.16 Radiculopathy, lumbar region (principal)
CPT/HCPCS: 72148

== ENCOUNTER 2024-12-10 02:59 | Emergency (ER) | payer MEDICARE, MEDICAID, SELFPAY ==
[2024-12-10 03:03] VITALS: BP 132/45; PULSE 92; RESP 17; TEMP 37.1; O2SAT 99; BMI 28.1
[2024-12-10 04:00] VITALS: BP 109/65; PULSE 77; RESP 16; TEMP 36.6; O2SAT 99
[2024-12-10 06:00] VITALS: BP 117/49; PULSE 80; RESP 12; TEMP 36.6; O2SAT 94
--- NOTE | 2024-12-10 07:00 | PC.NURSE ---
report given to oncoming RN
--- NOTE | 2024-12-10 07:14 | PC.NURSE ---
assumed care of pt at 0700, pt requesting to leave at this time, informed pt that is was change of shifts for provider so someone would be in shortly. pt elected to leave d/t things to do and will come back later.
== END 2024-12-10 07:16 | disposition left against medical advice (07) ==
PROVIDERS: Emergency Provider Emergency Medicine; PCP Physician Assistant
DX: Z53.21 Procedure and treatment not carried out due to patient leaving prior to being seen by health care provider (principal); M54.50 Low back pain, unspecified
CPT/HCPCS: 99281; 99284

== ENCOUNTER 2024-12-11 09:16 | Emergency (ER) | payer MEDICARE, MEDICAID, SELFPAY ==
[2024-12-11 09:29] VITALS: BP 111/63; PULSE 84; RESP 18; TEMP 36.8; O2SAT 100; BMI 28.4
[2024-12-11 10:00] LABS: MANUAL DIFF FLAG NO
[2024-12-11 10:01] LABS: Basophils Absolute Auto 0.1 X10*3/uL (0.0-0.2); Basophils Percent Auto 0.4 % (0-2); Eosinophils Absolute Auto 0.1 X10*3/uL (0.0-0.4); Eosinophils Percent Auto 0.4 % (0-4); Hematocrit 41.8 % (37.0-47.0); Hemoglobin 14.9 g/dl (12.0-16.0); Imm Gran Abs Auto 0.05 X10*3/uL (0.00-0.03); Imm Gran Pct Auto 0.4 % (0.0-0.4); Lymphocytes Absolute Auto 2.6 X10*3/uL (1.2-4.9); Lymphocytes Percent Auto 20.2 % (20-40); Mean Corpuscular HGB Conc 35.6 g/dl (31.0-35.0); Mean Corpuscular Hemoglobin 31.6 pg (27.0-33.0); Mean Corpuscular Volume 88.6 fL (80.0-98.0); Mean Platelet Volume 9.2 fL (9.4-12.3); Monocytes Absolute Auto 0.5 X10*3/uL (0.1-1.2); Monocytes Percent Auto 3.8 % (2-11); Neutrophils Absolute Auto 9.7 x10*3/uL (2.0-8.3); Neutrophils Percent Auto 74.8 % (45-73); Platelet Count 317 X10*3/uL (160-400); Red Blood Count 4.72 X10*6/uL (4.20-5.50); Red Cell Distribution Width 14.1 % (11.0-16.0)
--- OUTSIDE RECORDS SUMMARY | 2024-12-11 10:01 | XMS_ITS | Data Portability ---
Author Organization [facility], [facility] Address [address] [place] [address] Care Team Providers Care Unishear Operator Name Role Phone SHANITA MARTIN Primary Care Provider Assessment Encounter Date Assessment Date Assessment LastModified by Organization Details LastModified Time 03/01/2024 03/01/2024 Telemedicine Telephone Encounter Patient Location: Home Physician Location: [facility] Office [place], [place] Time spent with patient: 12 mins [...] inversion sprain. She currently lives in a [facility]. She was seen at [facility] where x-rays were negative. She later saw [...] the same service when rendered via a rbht-ob-azll interaction. I discussed with the patient the [...] 2023 024 [email or web address] [id number], [address], [place], [phone], 12:11:54 meloxicam 15 mg tablet [address] [id number], [address], [place], [phone], 15:05:00 Patient TargetsNo targets recorded. Patient InstructionsNo instructions recorded. Reason for Referral Physical Therapist Referral for Sprain of left ankle left ankle rehab rom, stretch, strengthening Referring Physician: Denice Winston, Orthopedic Surgery, Encounter Date: 03/31/2024 Results Created Date Observation Date Name Description Value Unit Range Abnormal Flag Note LastModifiedBy Organization Detail LastModifiedTime 02/15/20 24 02/15/2024 XR, foot, 2 view [email or web address]:/ [email or web address] ?Encry pted=s hAaTro YD8dLq bEUv6g %2BXZw aYqtaq 0bqfl% 2Fg9IQ a4ajBk vP9nXo QUaueC m3YtLR FvZlgJ JJ8mAn HZtai3 8n5837 AC0Koa HyNWaD eUC8mr 84%3D INTERFACE [facility] [address] [facility] [address], [place], [address], 02/15/2024 11:08:00 02/15/20 24 02/15/2024 XR, foot, 2 view [email or web address] ?Encry pted=s hAaTro YD8dLq bEUv6g %2BXZw aYqtaq 0bqfl% 2Fg9IQ a4ajBk vP9nXo QUaueC m3YtLR FvZl JJ8[place] HZtai3 5j6666 AC0Koa HyNWaD eUC8mr 84%3D INTERFACE [facility] [address], [place], [address], 02/15/2024 11:08:02 02/15/20 24 02/15/2024 XR, ankle , 3 or more view http:/ [email or web address] ?Encry pted=s hAaTro YD8dLq bEUv6g %2BXZw aYqtaq 0bqfl% 2Fg9IQ a4ajBk vP9nXo QUaueC m3YtLR FvZl JJ8[place] HZtai3 2f9325 AC0Koa HyNWaP eUC8mr 84%3D INTERFACE [facility] [address], [place], [address], 02/15/2024 11:10:08 02/15/20 24 02/15/2024 XR, ankle , 3 or more view http:/ [email or web address] ?Encry pted=s hAaTro YD8dLq bEUv6g %2BXZw aYqtaq 0bqfl% 2Fg9IQ a4ajBk vP9nXo QUaueC m3YtLR Zl [facility] 9g9185 AC0Koa HyNWaP eUC8mr 84%3D INTERFACE [facility] [address], [place], [address], 02/15/2024 11:10:10 02/16/[address], ankle + foot, w/o contr ast No observ ation record ed. Not Available 2023 15:11:58 Result Notes None recorded. Procedures Surgical History Date Name Laterality Status Provider Name and Address Organization Details Recorded Time 4 Cast Removal completed Mary Pederson [place] - [facility] 02/22/2024 12:07:49 4 Cast_Short Leg_11+ completed JOHN GARZA [facility] 02/18/2024 12:59:56 4 Cast Removal completed JOHN GARZA [facility] 02/18/2024 12:57:56 Imaging Results Imaging Date Name Status LastModified by Organiz ation Details LastModified Time 02/15/2024 XR, foot, 2 view completed INTERFACE [facility] [address], [place], [address], 02/15/2024 11:08:00 02/15/2024 XR, foot, 2 view completed INTERFACE [facility] [address], [place], [address], 02/15/2024 11:08:02 02/15/2024 XR, ankle, 3 or more view completed INTERFACE [facility] [address], [place], [address], 02/15/2024 11:10:08 02/15/2024 XR, ankle, 3 or more view completed INTERFACE [facility] [address], [place], [address], 02/15/2024 11:10:10 02/16/2024 CT, ankle + foot, w/o contrast completed [email or web address] Information not available 02/16/2024 15:11:58 Procedure Notes None recorded. Medical Equipment None Reported. Allergies Allergen ID Allergen Name Allergen Category Reaction Reaction Severity Criticality Documentation Date Start Date Code Code System Note Provider Name and Address Organization Details Recorded Time 282321 Topamax medicatio n Not available Not available Not available 02/15/2024 40712 3 [facility] 4 11:55:06 533263 Depakote medicatio n Not available Not available Not available 02/15/2024 67811 9 RxNorm [facility] med[facility] [place] [facility] 4 11:55:10 Medications Name Sig Start [...] Updated DateTime 03/31/2024 157.48 cm 28 kg/m2 74864.63 g Leydi Avalos [facility] 03/31/2024 11:20:03 Date Recorded Body height Body mass index (BMI) Body weight Provider Name and Address Organization Details Last Updated DateTime 05/16/2024 157.48 cm 28 kg/m2 39023.63 g [place] [facility] 05/16/2024 10:06:35 Date Recorded Body height Body mass index (BMI) Body weight Provider Name and Address Organization Details Last Updated DateTime 07/07/2024 157.48 cm 28 kg/m2 07307.63 g EDISON FERGUSON [facility] 07/07/2024 13:31:06 Social History None recorded. Functional Status None recorded. Mental Status None recorded. Family History Nothing Reported. Medical History No medical history recorded. Gynecological HistoryNo gynecological history recorded. Obstetrics History GPAL:G 0 P 0 0 0 0 Past Encounters Encounter ID Performer Location Encounter Start Date Encounter Closed Date Diagnosis/Indication Diagnosis SNOMED-CT Code Diagnosis ICD10 Code Diagnosis Note [id number] MD Yary Jones [address] [place] [address] 02/15/2024 10:54:15 03/15/2024 10:13:08 Ankle pain 516496731 M25.572 Sprain of left ankle 717 4951224 2112005 S93.402A Closed fra cture of lateral malleolus of left fibula 2504491792 6934939 S82.65XA [id number] MD Erik Jonese [address] [place] [address] 02/18/2024 12:13:19 02/18/2024 13:00:30 Fracture of ankle 14484500 S82.65XA [id number] Haris Carroll MD [facility] [address] [place] [address] 02/22/2024 10:57:56 02/22/2024 12:11:51 Sprain of left ankle 9072300387 1981734 S93.402A Sprain of lateral ligament of ankle joint 915168859 S93.492D [id number] Haris Carroll MD [facility] [address] [place] [address] 03/01/2024 11:09:22 03/25/2024 10:43:23 Sprain of left ankle 2361664645 1731076 S93.402A [id number] Denice Winston PA-C [facility] [address] [place] [address] 03/31/2024 11:04:57 05/05/2024 09:25:42 Sprain of left ankle 6087383223 9822051 S93.402A [id number] Denice Winston PA-C [facility] [address] [place] [address] 05/16/2024 09:04:09 06/01/2024 20:41:20 Ankle pain 234371417 M25.681 [id number] Denice Winston PA-C [facility] [address] [place] [address] 07/07/2024 13:13:01 07/28/2024 11:52:44 Ankle pain 274087595 M25.579 Health Concerns Section Related Observation LastModified by Organization Detai ls LastModified Time None Recorded Concern Status LastModified by Organization Details LastModified Time None Recorded Advance Directives Directive None Recorded Payers Encounter Date Sequence Insurance Name Policy Number Policy Pearson Covered Member ID Pearson Member ID Guarantor Name 02/22/2024 1 [employer] (MEDICARE REPLACEMENT/A DVANTAGE - PPO) [id number] Abril Shipleyon [id number] Abril Shipleyon 02/22/2024 2 [place] Abril Mckeon McMahon [id number] Abril Shipleyon 03/01/2024 1 [employer] (MEDICARE REPLACEMENT/A DVANTAGE - PPO) [id number] Abril Shipleyon [id number] Abril Shipleyon 03/01/2024 2 [place] Abril A Gonzalez [id number] Abril Shipleyon 03/31/2024 2 [place] Abril A Gonzalez [id number] Abril Shipleyon 03/31/2024 1 [place] Abril Gonzalez [id number] Abril Songahon 05/16/2024 1 [place] Abril A Gonzalez [id number] Abril Shipleyon 05/16/2024 2 [place] Abril Mckeon Gonzalez [id number] Abril Shipleyon 07/07/2024 1 [place] Abril A Gonzalez [id number] Abril Shipleyon 07/07/2024 2 [place] Abril Mckeon Gonzalez [id number] Abril Gonzalez Notes Date Note Type Note [...] and side effects discussed. Denice Winston PA-C [address] [place] [address] [address] [facility], [place], [address], [facility] - [facility] 03/31/2024 12:44:58 05/16/2024 text/html [...] brace as needed. She lives at a [facility] and is having difficulty getting transportation. She [...] in 6-8 weeks Denice Winston PA-C [address] [facility] [address], [place], [address], [facility] 05/16/2024 11:15:34 07/07/2024 text/html Patient seen [...] a bad sprain. She lives at a [facility] and is having difficulty getting transportation. She [...] full duty work. Denice Winston PA-C [address] [facility] [address], [place], [address], [facility] - [facility] 07/07/2024 14:01:30 OBGyn Episode No OBEpisode recorded.
[2024-12-11 10:14] LABS: Alanine Aminotransferase 24 U/L (0-31); Albumin Level 4.8 g/dL (3.5-5.0); Alkaline Phosphatase 61 U/L (39-117); Anion Gap 13 (12-20); Aspartate Amino Transferase 21 U/L (5-31); Bilirubin Total 0.3 mg/dL (0.0-1.0); Blood Urea Nitrogen 12 mg/dL (9-16); Calcium 9.5 mg/dL (8.4-10.2); Carbon Dioxide 24 mmol/L (22-29); Chloride 108 mmol/L (96-108); Creatinine Clr Calc Pharmacy 108.5; Estimated Glomerular Filt Rate > 60; Glucose Random 106 mg/dL (60-115); Lipase 53 U/L (8-78); Potassium 3.9 mmol/L (3.3-5.1); Sodium 141 mmol/L (135-145); Total Protein 7.2 g/dL (6.5-8.0)
[2024-12-11 10:24] LABS: HCG Quantitative < 2 mIU/mL
--- NOTE | 2024-12-11 10:27 | ED_ITS ---
HPI - General Adult General Chief complaint: General Medical Stated complaint: back pain Time Seen by Provider: 12/11/24 10:17 Source: patient, RN notes reviewed and old records reviewed Mode of arrival: ambulatory History of Present Illness ED Provider: Zahira Randall PA-C HPI narrative: 49-year-old female with a past medical history of RLS, migraines, anxiety, fibromyalgia, intractable low back pain with known lumbar herniated disc (seen on MRI from 12/05/2024), presenting to the ED complaining of acute on chronic low back pain radiating down RLE with associated paresthesias x yesterday. Also reports periumbilical abdominal discomfort with nausea and nonbloody diarrhea. Reports difficulty ambulating and standing secondary to pain. Admits to decreased p.o. intake. Denies fever, chills, vomiting, dysuria/hematuria, urinary incontinence/retention, history of or current IVDA Related Data Home Medications ?Medication ?Instructions ?Recorded ?Confirmed butalbital 50 mg-acetaminophen 325 1 cap PO Q6H PRN Headaches 02/26/23 10/25/24 mg-caffeine 40 mg-codeine 30 mg cap multivitamin 1 tab PO DAILY 04/19/24 10/25/24 diclofenac sodium 75 mg 75 mg PO BID 06/28/24 10/25/24 tablet,delayed release paroxetine HCl 20 mg tablet 20 mg PO DAILY PRN 10/25/24 10/25/24 levonorgestrel 1.5 mg tablet 1.5 mg PO DIRECTED 11/03/24 Previous Rx's ?Medication ?Instructions ?Recorded acetaminophen 500 mg tablet 500 mg PO Q6H PRN fever #60 tabs 04/23/23 hyoscyamine sulfate 0.125 mg tablet 0.125 mg PO QID PRN dyspepsia #14 08/18/24 tabs gabapentin 300 mg capsule 300 mg PO BID 30 days #60 caps 10/19/24 cyclobenzaprine 10 mg tablet 10 mg PO BID PRN muscle spasm 30 10/25/24 days #60 tabs lidocaine 5 % topical patch 1 patch topical Q24H #30 ea 11/09/24 (DermacinRx Lidocan) gabapentin 600 mg tablet 600 mg PO BID 30 days #60 tabs 11/23/24 acetaminophen 500 mg tablet 500 mg PO Q6H PRN fever or pain 12/11/24 (Tylenol Extra Strength) #14 tabs cyclobenzaprine 5 mg tablet 5 mg PO Q8H PRN pain (scale score 12/11/24 7-10) 5 days #14 tabs lidocaine 5 % topical patch 1 patch topical DAILY PRN pain #30 12/11/24 (Lidoderm) ea naproxen 500 mg tablet 500 mg PO BID PRN pain 10 days #20 12/11/24 tabs ondansetron 4 mg disintegrating 4 mg PO Q8H PRN nausea and 12/11/24 tablet vomiting #5 tabs omeprazole 40 mg capsule,delayed 40 mg PO DAILY #30 caps 12/13/24 release oxycodone 5 mg tablet 5 mg PO Q6H PRN pain #20 tabs 12/13/24 sucralfate 1 gram tablet 1 g PO TID #90 tabs 12/13/24 Allergies Allergy/AdvReac Type Severity Reaction Status Date / Time topiramate [From TOPAMAX] Allergy Mild NAUSEA & Verified 12/12/24 21:07 VOMITING divalproex sodium AdvReac Unknown NAUSEA & Verified 12/12/24 21:07 [From DEPAKOTE] VOMITING Review of Systems 2 Review of Systems: Yes all other systems are reviewed and are negative Constitutional: Constitutional: Reports as per HPI Neurologic: Denies Sensory deficit (Neuro) [facility] Past Medical History Attestation statement: The following information was validated with the patient. Source: old records reviewed Medical History Wrist pain, left Ankle pain, left Obesity Restless leg syndrome Migraine Anxiety Fibromyalgia Surgical History H/O rectal polypectomy History of surgery History of hernia repair History of wisdom tooth extraction History of tonsillectomy History of umbilical hernia repair H/O LEEP History of colectomy Family History Family History Father CVD (cardiovascular disease) Myocardial infarction Mother Chronic mental illness Dementia Myocardial infarction, Onset Age: 40 Seizure Sister In good health Son In good health Maternal Aunt Breast CA Paternal Aunt Breast CA Other Mental health disorder Social History Social History Household Members Other:: roommate Housing: Other Housing Other:: lives in senior care Do you presently have visiting nurse or other home services: No Unable to assess alcohol history related to: Unknown Alcohol intake: former Patient Tobacco Use Status: Current everyday Tobacco user Tobacco use type: Cigarette Cigarette Packs Per Day: 1 Cigarettes Per Day: 20.0 Years Smoked: 15 e-Cigarette/Vaping Use: Never Used Second Hand Smoke Exposure: Yes Substance Use Type: Marijuana Advance Directives Date on File: 09/17/22 service: No Current occupational status: disabled Cognitive needs: No Hearing needs: No Vision needs: No Physical Exam ED Vital Signs: Vital Signs - 24 hr 12/11/24 09:29 12/11/24 10:58 12/11/24 13:00 Temperature 98.3 F Pulse Rate 84 74 71 Respiratory Rate 18 14 16 Blood Pressure 111/63 125/73 124/59 L Pulse Oximetry 100 100 98 Oxygen Delivery Method Room Air Room Air Room Air 12/11/24 13:52 Temperature Pulse Rate 68 Respiratory Rate 16 Blood Pressure 124/67 Pulse Oximetry 97 Oxygen Delivery Method Room Air BMI result Body Mass Index 28.4 Const General: cooperative, healthy appearing and no acute distress Orientation/consciousness: patient oriented x3 Limitations: no limitations HENMT Head: Yes normal to inspection and Yes atraumatic Ears: hearing grossly normal bilaterally General nose exam: Normal external nose present Face and sinus: Yes normal facial exam Eyes General: appearance normal, both eyes and all related structures EOM: EOMs intact bilaterally Neck Neck: Yes normal visual inspection and Yes no meningeal signs Resp Effort & Inspection: normal respiratory effort and no respiratory distress Auscultation: clear to auscultation bilaterally Cardio Rate: regular rate Heart sounds: S1 normal heart sound present and S2 normal heart sound present GI Inspection: Yes normal to inspection Palpation (GI): Soft to palpation, nontender, no guarding and not rigid General: Yes no CVA tenderness Back/Spine/Pelvis Other: No midline cervical/thoracic/lumbar spinous tenderness/step-off or deformity. + right lumbar paraspinal/MSK reproducible tenderness. No erythema/ecchymosis or rash Back: no CVA tenderness Skin Rashes: no rashes Wounds: no wounds Neuro Other: Strength intact throughout. No saddle anesthesia. Sensation intact to light touch. Neurovascular intact distally General: patient oriented x3, gait normal, tone normal, moves all extremities, no meningeal signs and no focal motor deficits Cranial nerves: Yes CN's II-XII intact bilaterally Gait exam (Neuro): Normal gait present Motor exam (neuro): 5/5 motor strength present throughout Sensory Exam: No Sensory deficit (Neuro) Extrem General: Yes normal to inspection Course Course Course Narrative: -1436--mild leukocytosis of 13. Labs otherwise reassuring -viral testing negative > patient has been sleeping comfortably since ED arrival. Tolerating p.o. without difficulty. Safe for discharge home at this time. Requesting to stay in the ED as she needs somewhere to stay/sleep. Discussed with patient you will provide her with senior care resources. Needs close follow up with PCP/business services specialist sales Results discussed with patient including worrisome signs and symptoms and strict return precautions, and when to return to the emergency department. They verbalized understanding and feel safe for discharge at this time. Medications Administered Discontinued Medications Generic Name Dose Route Start Last Admin Trade Name Freq PRN Reason Stop Dose Admin Cyclobenzaprine HCl 10 mg 12/11/24 10:39 12/11/24 11:57 Cyclobenzaprine Hcl 10 Mg Tablet PO 12/11/24 10:40 10 mg ONCE ONE Administration Sodium Chloride 1,000 mls @ 999 mls/hr 12/11/24 10:45 12/11/24 13:20 Ns IV 12/11/24 11:45 Infused .Q1H1M PACO Infusion Ketorolac Tromethamine 15 mg 12/11/24 10:39 12/11/24 11:55 Ketorolac Tromethamine 15 Mg/Ml Vial IVPUSH 12/11/24 10:40 15 mg ONCE ONE Administration Lidocaine 1 patch 12/11/24 10:40 12/11/24 11:56 Lidocaine 4 % Patch Adh..Patch TRANSDERMA 12/11/24 10:41 1 patch ONCE ONE Administration Protocol Ondansetron HCl 4 mg 12/11/24 10:39 12/11/24 11:55 Ondansetron Hcl 4 Mg/2 Ml Vial IVPUSH 12/11/24 10:40 4 mg ONCE ONE Administration Medical Decision Making Medical Decision Making MDM Narrative: 49-year-old female with a past medical history of RLS, migraines, anxiety, fibromyalgia, intractable low back pain with known lumbar herniated disc (seen on MRI from 12/05/2024), presenting to the ED complaining of acute on chronic low back pain radiating down RLE with associated paresthesias x yesterday. Also reports periumbilical abdominal discomfort with nausea and nonbloody diarrhea. On exam VSS, NAD, nontoxic appearing, abdomen is soft and nontender, no midline spinous tenderness throughout or red flag symptoms. Ambulating with slow, steady gait, no saddle anesthesia. Concern for acute on chronic back pain with known herniated disc. Concern for gastroenteritis vs food poisoning vs metabolic abnormalities. Low suspicion for fracture, cauda equina, epidural abscess, appendicitis/diverticulitis, ovarian pathology/torsion Plan: Labs, UA, IVF, antiemetic, pain control, viral testing, re-evaluate Please refer to course for remaining clinical decision making, interpretation of labs/imaging results, and discussions with consultants and/or family members. Differential Diagnosis Differential Diagnoses: The differential diagnosis associated with the presentation includes As above Admission/Observation Consideration of admission/observation: Escalation of care including admission/observation considered Lab Data MDM Lab Attestation statement: I reviewed the patient's lab results. 12/11/24 09:53 12/11/24 09:53 Labs: Lab Results 12/11/24 12/11/24 Range/Units 09:53 11:13 WBC 13.0 H (4.8-10.8) X10*3/uL RBC 4.72 (4.20-5.50) X10*6/uL Hgb 14.9 (12.0-16.0) g/dl Hct 41.8 (37.0-47.0) % MCV 88.6 (80.0-98.0) fL MCH 31.6 (27.0-33.0) pg MCHC 35.6 H (31.0-35.0) g/dl RDW 14.1 (11.0-16.0) % Plt Count 317 (160-400) X10*3/uL MPV 9.2 L (9.4-12.3) fL Immature Gran % (Auto) 0.4 (0.0-0.4) % Neut % (Auto) 74.8 H (45-73) % Lymph % (Auto) 20.2 (20-40) % [place] % (Auto) 3.8 (2-11) % Eos % (Auto) 0.4 (0-4) % Baso % (Auto) 0.4 (0-2) % Lymph # (Auto) 2.6 (1.2-4.9) X10*3/uL [place] # (Auto) 0.5 (0.1-1.2) X10*3/uL Eos # (Auto) 0.1 (0.0-0.4) X10*3/uL Baso # (Auto) 0.1 (0.0-0.2) X10*3/uL Abs Immat Gran (auto) 0.05 H (0.00-0.03) X10*3/uL Absolute Neuts (auto) 9.7 H (2.0-8.3) x10*3/uL Absolute Nucleated RBC 0.000 (0.0-0.012) X10*3/uL Nucleated RBC % (auto) 0.0 (0.0-0.2) /100WBC Sodium 141 (135-145) mmol/L Potassium 3.9 (3.3-5.1) mmol/L Chloride 108 (96-108) mmol/L Carbon Dioxide 24 (22-29) mmol/L Anion Gap 13 (12-20) BUN 12 (9-16) mg/dL Creatinine 0.57 (0.5-1.4) mg/dL Estim Creat Clear Calc 108.5 Estimated GFR > 60 Random Glucose 106 (60-115) mg/dL Calcium 9.5 (8.4-10.2) mg/dL Magnesium 2.2 (1.6-2.6) mg/dL Total Bilirubin 0.3 (0.0-1.0) mg/dL AST 21 (5-31) U/L ALT 24 (0-31) U/L Alkaline Phosphatase 61 (39-117) U/L Total Protein 7.2 (6.5-8.0) g/dL Albumin 4.8 (3.5-5.0) g/dL Lipase 53 (8-78) U/L Beta HCG, Quant < 2 mIU/mL Influenza Type A (PCR) NEGATIVE (Negative) Influenza Type B (PCR) NEGATIVE (Negative) RSV RNA Qual (PCR) NEGATIVE (Negative) SARS-CoV-2 RNA (RT-PCR) NEGATIVE (Negative) Radiology Impression Discussion of test interpretation with radiology: I have reviewed the radiologist's reading. External Record Review External record reviewed: Inpatient record, Office record, Outpatient record, Prior outpatient labs, Prior outpatient radiology, Primary care record and Outside ED record Tests considered The following testing was considered but not selected: As above Prescription Management I considered prescription management with: Pain Medication Chronic Conditions Patient?s care impacted by: Other Social Determinants Patient?s care significantly limited by Social Determinants of Health including: Inadequate housing, Low income, Problems related to primary support group and Other Social Determinant of Health Discharge Plan Discharge Clinical Impression: Acute on chronic low back pain, Gastroenteritis Patient Disposition: Home, Self-Care Instructions: Gastroenteritis (DC), Acute Low Back Pain (ED) Additional Instructions: You need to follow up with your primary care doctor as well as business services specialist sales Your blood work is reassuring Zofran as an antinausea medication, take as needed Flexeril is a muscle relaxer, take at night as it makes you drowsy, do not drive, drink alcohol, or operate machinery while taking it Naproxen as an anti-inflammatory / pain medication, take with food Lidoderm patches are numbing patches, apply to painful area In addition take Tylenol at home If symptoms persist or worsen, pain becomes unbearable, you developed urinary retention or incontinence, or weakness return to the ED Prescriptions: New acetaminophen [Tylenol Extra Strength] 500 mg tablet 500 mg PO Q6H PRN (Reason: fever or pain) Qty: 14 0RF lidocaine [Lidoderm] 5 % adhesive patch,medicated 1 patch topical DAILY MDD remove after 12 hours PRN (Reason: pain) Qty: 30 0RF Rx Instructions: leave on most painful area for up to 12 hrs naproxen 500 mg tablet 500 mg PO BID PRN (Reason: pain) 10 Days Qty: 20 0RF cyclobenzaprine 5 mg tablet 5 mg PO Q8H PRN (Reason: pain (scale score 7-10)) 5 Days Qty: 14 0RF ondansetron 4 mg tablet,disintegrating 4 mg PO Q8H PRN (Reason: nausea and vomiting) Qty: 5 0RF No Action gabapentin 300 mg capsule 300 mg PO BID 30 Days Qty: 60 6RF lidocaine [DermacinRx Lidocan] 5 % adhesive patch,medicated 1 patch topical Q24H Qty: 30 0RF Rx Instructions: leave on most painful area for up to 12 hrs gabapentin 600 mg tablet 600 mg PO BID 30 Days Qty: 60 1RF hyoscyamine sulfate 0.125 mg tablet 0.125 mg PO QID PRN (Reason: dyspepsia) Qty: 14 0RF oxycodone 5 mg tablet 5 mg PO Q6H PRN (Reason: pain) Qty: 20 0RF Rx Instructions: Partial Fill upon patient request. omeprazole 40 mg capsule,delayed release(DR/EC) 40 mg PO DAILY Qty: 30 0RF sucralfate 1 gram tablet 1 g PO TID Qty: 90 0RF multivitamin Tablet 1 tab PO DAILY acetaminophen 500 mg tablet 500 mg PO Q6H PRN (Reason: fever) Qty: 60 0RF Rx Instructions: Take 1 tablet every 6 hours as needed for pain/fever. Do not take in combination with Fioricet. [id number]-[id number]-cod [id number] mg capsule 1 cap PO Q6H PRN (Reason: Headaches) paroxetine HCl 20 mg tablet 20 mg PO DAILY PRN cyclobenzaprine 10 mg tablet 10 mg PO BID PRN (Reason: muscle spasm) 30 Days Qty: 60 3RF diclofenac sodium 75 mg tablet,delayed release (DR/EC) 75 mg PO BID levonorgestrel 1.5 mg tablet 1.5 mg PO DIRECTED Referrals: [facility] [Provider Group] [facility] [Provider Group] Rudy Barth PA-C [Primary Care Provider] - 3 days Interventions: ED Discharge Assessment Last Done: 12/11/24 16:05 Discharge Date/Time: 12/11/24 16:05 Print Language: German
[2024-12-11 10:58] VITALS: BP 125/73; PULSE 74; RESP 14; O2SAT 100
[2024-12-11 11:07] LABS: Magnesium 2.2 mg/dL (1.6-2.6)
[2024-12-11] MEDS: Ketorolac Tromethamine 15 MG/ML VIAL IVPUSH (11:55)
[2024-12-11] MEDS: 0.9 % Sodium Chloride 1,000 ML 999 ML IV (11:55)
[2024-12-11] MEDS: ondansetron HCL 4 MG/2 ML VIAL IVPUSH (11:55)
[2024-12-11] MEDS: Lidocaine 4 % Patch ADH..PATCH 1 PATCH TRANSDERMA (11:56)
[2024-12-11] MEDS: Cyclobenzaprine HCl 10 MG TABLET PO (11:57)
[2024-12-11 13:00] VITALS: BP 124/59; PULSE 71; RESP 16; O2SAT 98
[2024-12-11 13:30] LABS: Influenza A PCR NEGATIVE (Negative); Influenza B PCR NEGATIVE (Negative); Resp Syncy Virus RNA Qual PCR NEGATIVE (Negative); SARS COV2 PCR INHOUSE NEGATIVE (Negative)
[2024-12-11 13:52] VITALS: BP 124/67; PULSE 68; RESP 16; O2SAT 97
[2024-12-11 15:01] VITALS: BP 128/68; PULSE 68; RESP 18; TEMP 36.7; O2SAT 97
[2024-12-11 16:05] VITALS: BP 128/68; PULSE 68; RESP 18; TEMP 36.7; O2SAT 97
== END 2024-12-11 16:05 | disposition home or self-care (01) ==
PROVIDERS: Physician Assistant; Emergency Provider Emergency Medicine; PCP Physician Assistant
DX: K52.9 Noninfective gastroenteritis and colitis, unspecified (principal); M54.50 Low back pain, unspecified; R11.2 Nausea with vomiting, unspecified; R10.2 Pelvic and perineal pain; F17.210 Nicotine dependence, cigarettes, uncomplicated; Z03.818 Encounter for observation for suspected exposure to other biological agents ruled out; Z79.899 Other long term (current) drug therapy
CPT/HCPCS: 0241U; 36415; 80053; 83690; 83735; 84702; 85025; 96361; 96374; 96375; 99284; J1885; J2405

== ENCOUNTER 2024-12-12 20:51 | Emergency (ER) | payer MEDICARE, MEDICAID, SELFPAY ==
[2024-12-12 21:04] VITALS: BP 120/47; PULSE 80; RESP 14; TEMP 36.2; O2SAT 99; BMI 28.6
--- NOTE | 2024-12-12 22:45 | ED_ITS ---
HPI - Abdominal Pain General Chief Complaint: Abdominal Pain Stated Complaint: abd pain Time Seen by Provider: 12/12/24 22:45 Source: patient Mode of arrival: ambulatory Limitations: no limitations History of Present Illness ED Provider: HPI narrative: Patient has chronic low back pain MRI done on 12/05 showed L4-L5 broad-based disc bulge affecting L4 nerve for seen here yesterday for back pain comes here again for similar pain and now complaining of abdominal pain with slight nausea patient is homeless for last 3 days patient's workup showed slight leukocytosis and UA done today was also negative no fever no chills no diarrhea patient is taking gabapentin and ibuprofen without much relief able to ambulate Related Data Home Medications ?Medication ?Instructions ?Recorded ?Confirmed butalbital 50 mg-acetaminophen 325 1 cap PO Q6H PRN Headaches 02/26/23 10/25/24 mg-caffeine 40 mg-codeine 30 mg cap multivitamin 1 tab PO DAILY 04/19/24 10/25/24 diclofenac sodium 75 mg 75 mg PO BID 06/28/24 10/25/24 tablet,delayed release paroxetine HCl 20 mg tablet 20 mg PO DAILY PRN 10/25/24 10/25/24 levonorgestrel 1.5 mg tablet 1.5 mg PO DIRECTED 11/03/24 Previous Rx's ?Medication ?Instructions ?Recorded acetaminophen 500 mg tablet 500 mg PO Q6H PRN fever #60 tabs 04/23/23 hyoscyamine sulfate 0.125 mg tablet 0.125 mg PO QID PRN dyspepsia #14 08/18/24 tabs gabapentin 300 mg capsule 300 mg PO BID 30 days #60 caps 10/19/24 cyclobenzaprine 10 mg tablet 10 mg PO BID PRN muscle spasm 30 10/25/24 days #60 tabs lidocaine 5 % topical patch 1 patch topical Q24H #30 ea 11/09/24 (DermacinRx Lidocan) gabapentin 600 mg tablet 600 mg PO BID 30 days #60 tabs 11/23/24 acetaminophen 500 mg tablet 500 mg PO Q6H PRN fever or pain 12/11/24 (Tylenol Extra Strength) #14 tabs cyclobenzaprine 5 mg tablet 5 mg PO Q8H PRN pain (scale score 12/11/24 7-10) 5 days #14 tabs lidocaine 5 % topical patch 1 patch topical DAILY PRN pain #30 12/11/24 (Lidoderm) ea naproxen 500 mg tablet 500 mg PO BID PRN pain 10 days #20 12/11/24 tabs ondansetron 4 mg disintegrating 4 mg PO Q8H PRN nausea and 12/11/24 tablet vomiting #5 tabs omeprazole 40 mg capsule,delayed 40 mg PO DAILY #30 caps 12/13/24 release oxycodone 5 mg tablet 5 mg PO Q6H PRN pain #20 tabs 12/13/24 sucralfate 1 gram tablet 1 g PO TID #90 tabs 12/13/24 Allergies Allergy/AdvReac Type Severity Reaction Status Date / Time topiramate [From TOPAMAX] Allergy Mild NAUSEA & Verified 12/12/24 21:07 VOMITING divalproex sodium AdvReac Unknown NAUSEA & Verified 12/12/24 21:07 [From DEPAKOTE] VOMITING Review of Systems Review of Systems Yes all other systems are reviewed and are negative [facility] Past Medical History Medical History Wrist pain, left Ankle pain, left Obesity Restless leg syndrome Migraine Anxiety Fibromyalgia Surgical History H/O rectal polypectomy History of surgery History of hernia repair History of wisdom tooth extraction History of tonsillectomy History of umbilical hernia repair H/O LEEP History of colectomy Family History Family History Father CVD (cardiovascular disease) Myocardial infarction Mother Chronic mental illness Dementia Myocardial infarction, Onset Age: 40 Seizure Sister In good health Son In good health Maternal Aunt Breast CA Paternal Aunt Breast CA Other Mental health disorder Social History Social History Household Members Other:: roommate Housing: Other Housing Other:: lives in residential Do you presently have visiting nurse or other home services: No Unable to assess alcohol history related to: Unknown Alcohol intake: former Patient Tobacco Use Status: Current everyday Tobacco user Tobacco use type: Cigarette Cigarette Packs Per Day: 1 Cigarettes Per Day: 20.0 Years Smoked: 15 Smoked in Last 30 Days: Yes e-Cigarette/Vaping Use: Never Used Second Hand Smoke Exposure: Yes Use of substances other than those prescribed or required for medical reasons: No Substance Use Type: Marijuana Advance Directives: Yes Advance Directives on File: Yes Advance Directives Date on File: 09/17/22 Do you have a plan to hurt others: No Plan service: No Current occupational status: disabled Cognitive needs: No Hearing needs: No Vision needs: No Physical Exam ED Vital Signs: Vital Signs - 24 hr 12/12/24 21:04 12/12/24 22:57 Temperature 97.1 F 98.2 F Pulse Rate 80 75 Respiratory Rate 14 18 Blood Pressure 120/47 L 115/43 L Pulse Oximetry 99 99 Oxygen Delivery Method Room Air Room Air BMI result Body Mass Index 28.6 Appearance: Alert. Oriented X3. No acute distress. Eyes: PERRLA, No Nystagmus ENT: Pharynx normal. Oral Mucosa moist Neck: Normal inspection. Neck supple. CVS: Normal heart rate and rhythm. Pulses normal. Respiratory: No respiratory distress. Equal air entry bilateral, no wheezing/rales/rhonchi Abdomen: Soft and mild epigastric tenderness no rebound tenderness or guarding Bowel sounds are present, no mass palpable, no CVA tenderness Skin: Skin warm and dry. Normal skin color. Normal skin turgor. Extremities: No lower extremity edema. No calf tenderness Neuro: Oriented X 3. No motor deficit. No sensory deficit.No cerebellar signs , cranial nerves II-XII intact Medical Decision Making Medical Decision Making [facility] Narrative: Patient with chronic back pain from L4-L5 disc herniation with epigastric pain clinically gastritis as he taking ibuprofen patient is homeless will give PPI and sucralfate advised to avoid taking NSAIDs patient's labs were stable UA is negative today Differential Diagnosis Differential Diagnoses: The differential diagnosis associated with the presentat ion includes UTI/gastritis/chronic back Lab Data [facility] Lab Attestation statement: I reviewed the patient's lab results. Labs: Lab Results 12/12/24 Range/Units 23:40 Urine Color Yellow Urine Appearance Clear Urine pH 7.0 (5.0-9.0) Ur Specific [place] 1.010 (1.005-1.025) Urine Protein Negative (Neg-Trace) mg/dL Urine Glucose (UA) Negative (Negative) mg/dL Urine Ketones Negative (Negative) mg/dL Urine Blood Negative (Negative) Urine Nitrite Negative (Negative) Ur Leukocyte Esterase Negative (Negative) Medications Administered Discontinued Medications Generic Name Dose Route Start Last Admin Trade Name Freq PRN Reason Stop Dose Admin Al Hydroxide/Mg Hydroxide 30 ml 12/12/24 22:56 12/12/24 23:32 Magnesium Hydrox/Alum Hydrox 30 Ml Oral.Susp PO 12/12/24 22:57 30 ml ONCE ONE Administration Omeprazole 40 mg 12/12/24 22:56 12/12/24 23:32 Omeprazole 40 Mg Capsule.Dr PO 12/12/24 22:57 40 mg ONCE ONE Administration Oxycodone HCl 10 mg 12/12/24 22:56 12/12/24 23:32 Oxycodone Hcl Immed Release 5 Mg Tablet PO 12/12/24 22:57 10 mg ONCE ONE Administration Discharge Plan Discharge Clinical Impression: Lower back pain, Left lumbar radiculopathy, Gastritis Patient Disposition: Home, Self-Care Instructions: Lumbar Radiculopathy (ED), Back Pain (ED) Additional Instructions: Avoid fried food Medicine for acid reflux as prescribed Take pain medication as prescribed and follow up with your pain clinic/PCP Prescriptions: New oxycodone 5 mg tablet 5 mg PO Q6H PRN (Reason: pain) Qty: 20 0RF Rx Instructions: Partial Fill upon patient request. omeprazole 40 mg capsule,delayed release(DR/EC) 40 mg PO DAILY Qty: 30 0RF sucralfate 1 gram tablet 1 g PO TID Qty: 90 0RF No Action gabapentin 300 mg capsule 300 mg PO BID 30 Days Qty: 60 6RF lidocaine [DermacinRx Lidocan] 5 % adhesive patch,medicated 1 patch topical Q24H Qty: 30 0RF Rx Instructions: leave on most painful area for up to 12 hrs gabapentin 600 mg tablet 600 mg PO BID 30 Days Qty: 60 1RF hyoscyamine sulfate 0.125 mg tablet 0.125 mg PO QID PRN (Reason: dyspepsia) Qty: 14 0RF multivitamin Tablet 1 tab PO DAILY acetaminophen [Tylenol Extra Strength] 500 mg tablet 500 mg PO Q6H PRN (Reason: fever or pain) Qty: 14 0RF lidocaine [Lidoderm] 5 % adhesive patch,medicated 1 patch topical DAILY MDD remove after 12 hours PRN (Reason: pain) Qty: 30 0RF Rx Instructions: leave on most painful area for up to 12 hrs naproxen 500 mg tablet 500 mg PO BID PRN (Reason: pain) 10 Days Qty: 20 0RF cyclobenzaprine 5 mg tablet 5 mg PO Q8H PRN (Reason: pain (scale score 7-10)) 5 Days Qty: 14 0RF ondansetron 4 mg tablet,disintegrating 4 mg PO Q8H PRN (Reason: nausea and vomiting) Qty: 5 0RF acetaminophen 500 mg tablet 500 mg PO Q6H PRN (Reason: fever) Qty: 60 0RF Rx Instructions: Take 1 tablet every 6 hours as needed for pain/fever. Do not take in combination with Fioricet. [id number]-[id number]-[id number]-cod [id number] mg capsule 1 cap PO Q6H PRN (Reason: Headaches) paroxetine HCl 20 mg tablet 20 mg PO DAILY PRN cyclobenzaprine 10 mg tablet 10 mg PO BID PRN (Reason: muscle spasm) 30 Days Qty: 60 3RF diclofenac sodium 75 mg tablet,delayed release (DR/EC) 75 mg PO BID levonorgestrel 1.5 mg tablet 1.5 mg PO DIRECTED Referrals: Yon Giang MD [Physician] - Print Language: Portuguese
[2024-12-12 22:57] VITALS: BP 115/43; PULSE 75; RESP 18; TEMP 36.8; O2SAT 99
[2024-12-12] MEDS: Omeprazole 40 MG CAPSULE.DR PO (23:32)
[2024-12-12] MEDS: Magnesium Hydrox/Alum Hydrox 30 ML ORAL.SUSP PO (23:32)
[2024-12-12] MEDS: oxyCODONE HCl Immed Release 5 MG TABLET 10 MG PO (23:32)
[2024-12-12 23:45] LABS: Appearance Urine Clear; Color Urine Yellow; Glucose Urine UA Negative (Negative); Leukocyte Esterase Urine Negative (Negative); Nitrite Urine Negative (Negative); Urine Blood Negative (Negative); Urine Ketones Negative (Negative); Urine Protein Negative (Neg-Trace)
[2024-12-13 02:00] VITALS: BP 117/55; PULSE 92; RESP 16; TEMP 36.7; O2SAT 98
[2024-12-13 02:12] VITALS: BP 117/55; PULSE 92; RESP 16; TEMP 36.7; O2SAT 98
== END 2024-12-13 02:12 | disposition home or self-care (01) ==
PROVIDERS: Emergency Provider Internal Medicine
DX: M54.50 Low back pain, unspecified (principal); M54.16 Radiculopathy, lumbar region; K29.70 Gastritis, unspecified, without bleeding
CPT/HCPCS: 81003; 99283; 99284

== ENCOUNTER 2024-12-19 09:34 | Outpatient (AMB) | payer MEDICARE, MEDICAID, SELFPAY ==
--- NOTE | 2024-12-19 09:41 | A.SPINEOV_ITS ---
Intake Visit Reasons: lumbar radiculopathy Intake Note: Ms. Gonzalez is here today c/o low back pain. MRI done @ [facility]. 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 She is a very nice 49-year-old woman with history of fibromyalgia who presents for evaluation of symptoms of abdominal pain, back pain, bilateral lower extremity pain, right greater than left. She has been dealing with these things since at least 2019. She has been through numerous rounds of conservative treatment including p hysical therapy, chiropractic as well as injections. One of the injections left her paralyzed for 3 days. She has been seen here at [facility] and is being considered for a spinal cord stimulator, but she is not really all that interested in that. She has recently in the emergency room for the pain and given Flexeril and some ice/heat packs. This seemed to help a li ttle bit. She comes in today for evaluation with an MRI showing some degenerative disc disease at L4-5. PMH: She has a history of anxiety, depression, panic attacks, fibromyalgia, what she tells me has very large cysts on her ovaries and uterus that may need surgery. One of them is his biggest 6 cm or larger. For various reasons including her homelessness, she has been unable to have the surgery because she needs a place to recover and currently she does not have that. She had diverticulitis and colon resection a number of years ago with subsequent follow- up surgeries 2 or 3 times to repair hernias and scar tissue. She has had precancer cells removed from her vulva, labia and anus. [place] teeth removal. Denies any problem with her heart, liver, lungs, kidneys, diabetes, blood clots or bleeding disorders. 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 She has not drink any alcohol. Medications: Flexeril, diclofenac, ibuprofen, Fioricet, prn paroxetine Allergies: Depakote and Topamax Physical exam: Strength, gait reflexes normal Imaging review: Lumbar MRI shows some mild degenerative disc disease at L4-5 with some subtle Modic endplate changes on the right side. There is no foraminal stenosis as described by the radiologist and there is no nerve compression seen anywhere in the spine. The rest of her lumbar discs look otherwise normal. Impression: 49-year-old female presents for evaluation of symptoms of abdominal pain, back pain, bilateral pain into her thighs, right greater than left. She has some mild changes in her disc on the right at L4-5 but has no compression of any nerves as reported by the radiologist. I do not have an explanation for this amount of pain and do not think surgery at L4-5 is in the cards for her. I think it would only make her feel worse. Her history is complicated by her fibromyalgia which obviously can make things significantly more intense in terms of sensations of pain. Her history is also complicated by her multiple abdominal surgeries which would make minimally invasive surgery all that more difficult. I told her she should follow up with pain management for further discussions. We also have to consider the fact that she has these large intra- abdominal cysts that maybe contributing to her pain as well. Thank you for allowing us to care for your patient. The total time spent with this visit with this patient was 45 minutes reviewing history, physical exam, lumbar imaging review, and implementation of treatment plan or further diagnostic testing David Cardona MD,PhD [facility] Coding Level of Care Code New Pt Level 4 (80187) Diagnoses Intractable low back pain M54.59
--- OUTSIDE RECORDS SUMMARY | 2024-12-19 10:14 | XMS_ITS | Data Portability ---
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 She [place]. She was seen at [facility] where x-rays were negative. She later [...] the same service when rendered via a sujg-id-dvdh interaction. I discussed with the patient the [...] meloxicam 15 mg tablet 2023 024 [email or web address] [id number], [address], [place], [phone], 12:11:54 meloxicam 15 mg tablet [address] [id number], [address], [place], [phone], 15:05:00 Patient TargetsNo targets recorded. Patient InstructionsNo instructions recorded. Reason for Referral Physical Therapist Referral for Sprain of left ankle left ankle rehab rom, stretch, strengthening Referring Physician: Denice Winston, Orthopedic Surgery, Encounter Date: 03/31/2024 Results Created Date Observation Date Name Description Value Unit Range Abnormal Flag Note LastModifiedBy Organization Detail LastModifiedTime 02/15/20 24 02/15/2024 XR, foot, 2 view http:/ /[email or web address] ?Encry pted=s hAaTro YD8dLq bEUv6g %2BXZw aYqtaq 0bqfl% 2Fg9IQ a4ajBk vP9nXo QUaueC m3YtLR FvZlgJ JJ8mAn HZtai3 5c2836 AC0Koa HyNWaD eUC8mr 84%3D INTERFACE [facility] [address] [facility] [address], [place], [address], 02/15/2024 11:08:00 02/15/20 24 02/15/2024 XR, foot, 2 view http:/ [email or web address] ?Encry pted=s hAaTro YD8dLq bEUv6g %2BXZw aYqtaq 0bqfl% 2Fg9IQ a4ajBk vP9nXo QUaueC m3YtLR FvZl JJ8[place] HZtai3 9y9626 AC0Koa HyNWaD eUC8mr 84%3D INTERFACE [facility] [address], [place], [address], 02/15/2024 11:08:02 02/15/20 24 02/15/2024 XR, ankle , 3 or more view http:/ [email or web address] ?Encry pted=s hAaTro YD8dLq bEUv6g %2BXZw aYqtaq 0bqfl% 2Fg9IQ a4ajBk vP9nXo QUaueC m3YtLR FvZl JJ8[place] HZtai3 2y6852 AC0Koa HyNWaP eUC8mr 84%3D INTERFACE [facility] [address], [place], [address], 02/15/2024 11:10:08 02/15/20 24 02/15/2024 XR, ankle , 3 or more view http:/ [email or web address] ?Encry pted=s hAaTro YD8dLq bEUv6g %2BXZw aYqtaq 0bqfl% 2Fg9IQ a4ajBk vP9nXo QUaueC m3YtLR Zl [facility] Hospital[facility] 7m5112 AC0Koa HyNWaP eUC8mr 84%3D INTERFACE [facility] [address], [place], [address], 02/15/2024 11:10:10 02/16/[address], ankle + foot, w/o contr ast No observ ation record ed. [email or web address] Not Available 2023 15:11:58 Result Notes None recorded. Procedures Surgical History Date Name Laterality Status Provider Name and Address Organization Details Recorded Time 4 Cast Removal completed Mary Pederson [place] - [facility] 02/22/2024 12:07:49 4 Cast_Short Leg_11+ completed JOHN GARZA [facility] 02/18/2024 12:59:56 4 [facility] 12:57:56 Imaging Results None recorded. Procedure Notes None recorded. Medical Equipment None Reported. Allergies Allergen ID Allergen Name Allergen Category Reaction Reaction Severity Criticality Documentation Date Start Date Code Code System Note Provider Name and Address Organization Details Recorded Time 831247 Topamax medicatio n Not available Not available Not available 02/15/2024 87295 3 Rxrm [facility] 4 11:55:06 768476 Depakote medicatio n Not available Not available Not available 02/15/2024 72683 9 Rxrm [facility] 4 11:55:10 Medications Name Sig Start [...] Updated DateTime 03/31/2024 157.48 cm 28 kg/m2 82355.63 g Leydi Avalos [facility] 03/31/2024 11:20:03 Date Recorded Body height Body mass index (BMI) Body weight Provider Name and Address Organization Details Last Updated DateTime 05/16/2024 157.48 cm 28 kg/m2 80208.63 g [place] [facility] 05/16/2024 10:06:35 Date Recorded Body height Body mass index (BMI) Body weight Provider Name and Address Organization Details Last Updated DateTime 07/07/2024 157.48 cm 28 kg/m2 03522.63 g EDISON PHYLLIS [facility] - [facility] 07/07/2024 13:31:06 Social History None recorded. Functional Status None recorded. Mental Status None recorded. Family History Nothing Reported. Medical History No medical history recorded. Gynecological HistoryNo gynecological history recorded. Obstetrics History GPAL:G 0 P 0 0 0 0 Past Encounters Encounter ID Performer Location Encounter Start Date Encounter Closed Date Diagnosis/Indication Diagnosis SNOMED-CT Code Diagnosis ICD10 Code Diagnosis Note [id number] MD Gianfranco Jones [facility] [address] [place] [address] 02/15/2024 10:54:15 03/15/2024 10:13:08 Ankle pain 531170507 M25.572 Sprain of left ankle 657 4913859 0772058 S93.402A Closed fra cture of lateral malleolus of left fibula 4744525768 6383847 S82.65XA [id number] MD Gianfranco Jones [facility] [address] [place] [address] 02/18/2024 12:13:19 02/18/2024 13:00:30 Fracture of ankle 99900990 S82.65XA [id number] MD Gianfranco Jones [facility] [address] [place] [address] 02/22/2024 10:57:56 02/22/2024 12:11:51 Sprain of left ankle 7322735268 5678013 S93.402A Sprain of lateral ligament of ankle joint 245446086 S93.492D [id number] MD Gianfranco Jones [facility] [address] [place] [address] 03/01/2024 11:09:22 03/25/2024 10:43:23 Sprain of left ankle 0694593251 5376294 S93.402A [id number] GUNNAR Chau [facility] [address] [place] [address] 03/31/2024 11:04:57 05/05/2024 09:25:42 Sprain of left ankle 9674104235 9972113 S93.402A [id number] Denice Winston PA-C [address] [place] [address] 05/16/2024 09:04:09 06/01/2024 20:41:20 Ankle pain 372471534 M25.734 [id number] Denice Winston PA-C [address] [place] [address] 07/07/2024 13:13:01 07/28/2024 11:52:44 Ankle pain 127669797 M25.579 Health Concerns Section Related Observation LastModified by Organization Detai ls LastModified Time None Recorded Concern Status LastModified by Organization Details LastModified Time None Recorded Advance Directives Directive None Recorded Payers Encounter Date Sequence Insurance Name Policy Number Policy Pearson Covered Member ID Pearson Member ID Guarantor Name 02/22/2024 1 [employer] (MEDICARE REPLACEMENT/A DVANTAGE - PPO) [id number] Abril A Gonzalez [id number] Abril Gonzalez 02/22/2024 2 [place] Abril A Gonzalez [id number] Abril Gonzalez 03/01/2024 1 [employer] (MEDICARE REPLACEMENT/A DVANTAGE - PPO) [id number] Abril A Gonzalez [id number] Abril Gonzalez 03/01/2024 2 [place] Abril A Gonzalez [id number] Abril Gonzalez 03/31/2024 2 [place] Abril A Gonzalez [id number] Abril Gonzalez 03/31/2024 1 [place] Abril Gonzalez [id number] Abril Gonzalez 05/16/2024 1 [place] Abril A Gonzalez [id number] Abril Gonzalez 05/16/2024 2 [place] Abril A Gonzalez [id number] Abril Gonzalez 07/07/2024 1 [place] Abril A Gonzalez [id number] Abril Gonzalez 07/07/2024 2 [place] [facility] Abril Gonzalez [id number] Abril Gonzalez Notes Date Note Type Note [...] side effects discussed. Denice Winston PA-C [address] [facility] [address], [place], [address], [facility] 03/31/2024 12:44:58 05/16/2024 text/html [...] brace as needed. [place] and is having difficulty getting transportation. She [...] arranged in 6-8 weeks Denice Winston PA-C [address] [place] [address] [address], [place], [address], [facility] 05/16/2024 11:15:34 07/07/2024 text/html Patient seen und [...] a bad sprain. She [place] and is having difficulty getting transportation. She [...] full duty work. Denice Winston PA-C [address] [facility] [address], [place], [address], [facility] 07/07/2024 14:01:30 OBGyn Episode No OBEpisode recorded.
== END 2024-12-19 10:23 | disposition home or self-care (01) ==
LOC: HO.HNS 09:35
PROVIDERS: Referring Provider Physician Assistant; Visit Provider Physician Assistant
DX: M54.59 Other low back pain (principal)
CPT/HCPCS: 99204

== ENCOUNTER → 2024-12-19 09:34 | Outpatient (BNVA) | payer MEDICARE, MEDICAID, SELFPAY | PROVIDERS: Referring Provider Physician Assistant; Visit Provider Physician Assistant | DX: M54.59 Other low back pain (principal) | CPT/HCPCS: 99202 ==

== ENCOUNTER 2024-12-24 23:25 | Emergency (ER) | payer MEDICARE, MEDICAID, SELFPAY ==
[2024-12-24 23:27] VITALS: BP 129/41; PULSE 80; RESP 18; TEMP 36.6; O2SAT 95; BMI 28.1
--- NOTE | 2024-12-25 02:21 | ED.SKABFB ---
HPI - Skin/Abscess/Foreign Bdy General Chief complaint: Skin/Abscess/Foreign Body Stated complaint: allergic reaction Time Seen by Provider: 12/25/24 02:04 Source: patient Mode of arrival: ambulatory Limitations: no limitations History of Present Illness ED Provider: HPI narrative: Patient has been bitten by mosquitos about 5 days ago since then been having itching small rash tried Benadryl and attacks without much relief no fever no chills no abscess Related Data Home Medications ?Medication ?Instructions ?Recorded ?Confirmed butalbital 50 mg-acetaminophen 325 1 cap PO Q6H PRN Headaches 02/26/23 10/25/24 mg-caffeine 40 mg-codeine 30 mg cap multivitamin 1 tab PO DAILY 04/19/24 10/25/24 diclofenac sodium 75 mg 75 mg PO BID 06/28/24 10/25/24 tablet,delayed release paroxetine HCl 20 mg tablet 20 mg PO DAILY PRN 10/25/24 10/25/24 levonorgestrel 1.5 mg tablet 1.5 mg PO DIRECTED 11/03/24 Previous Rx's ?Medication ?Instructions ?Recorded acetaminophen 500 mg tablet 500 mg PO Q6H PRN fever #60 tabs 04/23/23 hyoscyamine sulfate 0.125 mg tablet 0.125 mg PO QID PRN dyspepsia #14 08/18/24 tabs gabapentin 300 mg capsule 300 mg PO BID 30 days #60 caps 10/19/24 lidocaine 5 % topical patch 1 patch topical Q24H #30 ea 11/09/24 (DermacinRx Lidocan) gabapentin 600 mg tablet 600 mg PO BID 30 days #60 tabs 11/23/24 acetaminophen 500 mg tablet 500 mg PO Q6H PRN fever or pain 12/11/24 (Tylenol Extra Strength) #14 tabs lidocaine 5 % topical patch 1 patch topical DAILY PRN pain #30 12/11/24 (Lidoderm) ea naproxen 500 mg tablet 500 mg PO BID PRN pain 10 days #20 12/11/24 tabs ondansetron 4 mg disintegrating 4 mg PO Q8H PRN nausea and 12/11/24 tablet vomiting #5 tabs omeprazole 40 mg capsule,delayed 40 mg PO DAILY #30 caps 12/13/24 release oxycodone 5 mg tablet 5 mg PO Q6H PRN pain #20 tabs 12/13/24 sucralfate 1 gram tablet 1 g PO TID #90 tabs 12/13/24 cyclobenzaprine 10 mg tablet 10 mg PO BID PRN muscle spasm 30 12/21/24 days #60 tabs diphenhydramine HCl 25 mg capsule 25 mg PO TID PRN itching #20 caps 12/25/24 (Benadryl) prednisone 20 mg tablet 40 mg (2 x 20 mg) PO DAILY #10 tabs 12/25/24 Allergies Allergy/AdvReac Type Severity Reaction Status Date / Time topiramate [From TOPAMAX] Allergy Mild NAUSEA & Verified 12/24/24 23:31 VOMITING divalproex sodium AdvReac Unknown NAUSEA & Verified 12/24/24 23:31 [From DEPAKOTE] VOMITING Review of Systems Review of Systems: Yes all other systems are reviewed and are negative [facility] Past Medical History Medical History (Updated 12/25/24 @ 02:17 by Rudy Gaines MD) Nicotine dependence, cigarettes, uncomplicated Wrist pain, left Ankle pain, left Obesity Restless leg syndrome Migraine Anxiety Fibromyalgia Surgical History H/O rectal polypectomy History of surgery History of hernia repair History of wisdom tooth extraction History of tonsillectomy History of umbilical hernia repair H/O LEEP History of colectomy Family History Family History Father CVD (cardiovascular disease) Myocardial infarction Mother Chronic mental illness Dementia Myocardial infarction, Onset Age: 40 Seizure Sister In good health Son In good health Maternal Aunt Breast CA Paternal Aunt Breast CA Other Mental health disorder Social History Social History Household Members Other:: roommate Housing: Other Housing Other:: lives in fdc Do you presently have visiting nurse or other home services: No Unable to assess alcohol history related to: Unknown Alcohol intake: former Patient Tobacco Use Status: Current everyday Tobacco user Tobacco use type: Cigarette Cigarette Packs Per Day: 1 Cigarettes Per Day: 20.0 Years Smoked: 15 e-Cigarette/Vaping Use: Never Used Second Hand Smoke Exposure: Yes Use of substances other than those prescribed or required for medical reasons: No Substance Use Type: Marijuana Advance Directives: Yes Advance Directives on File: Yes Advance Directives Date on File: 09/17/22 Do you have a plan to hurt others: No Plan service: No Current occupational status: disabled Cognitive needs: No Hearing needs: No Vision needs: No Physical Exam Vital Signs: Vital Signs: Last Vital Signs Temp 97.9 F 12/25/24 02:34 Pulse 80 12/25/24 02:34 Resp 18 12/25/24 02:34 BP 129/41 L 12/25/24 02:34 Pulse Ox 95 12/25/24 02:34 O2 Del Method Room Air 12/25/24 02:34 BMI result Body Mass Index 28.1 Appearance: Alert. Oriented X3. No acute distress. Eyes: no pallor or icterus ENT: Pharynx normal Oral Mucosa moist tympanic membrane intact no erythema, Neck: Normal inspection. Neck supple. CVS: Normal heart rate and rhythm. Pulses normal. Respiratory: No respiratory distress. Equal air entry bilateral, no wheezing/rales/rhonchi Abd: soft, not tender Skin: Skin warm and dry. Normal skin color. Normal skin turgor. Small erythematous insect bite amezquita only had fused places in the lower extremities no abscess or signs of cellulitis Extremities: No lower extremity edema, no calf tenderness Neuro: Oriented X 3. Medications Administered Discontinued Medications Generic Name Dose Route Start Last Admin Trade Name Freq PRN Reason Stop Dose Admin Diphenhydramine HCl 25 mg 12/25/24 02:16 12/25/24 02:30 Diphenhydramine Hcl 25 Mg Capsule PO 12/25/24 02:17 25 mg ONCE ONE Administration Prednisone 40 mg 12/25/24 02:16 12/25/24 02:30 Prednisone 20 Mg Tablet PO 12/25/24 02:17 40 mg ONCE ONE Administration Medical Decision Making Medical Decision Making MDM Narrative: Patient's insect bites will prescribe Benadryl and prednisone for allergic reaction no signs of infection Discharge Plan Discharge Clinical Impression: Insect bite Patient Disposition: Home, Self-Care Instructions: Insect Bite or Sting (ED) Additional Instructions: Continue take Benadryl 1-2 tablets every 6 hours as needed for itching Prednisone as prescribed Follow the PCP if not better Prescriptions: New prednisone 20 mg tablet 40 mg PO DAILY Qty: 10 0RF diphenhydramine HCl [Benadryl] 25 mg capsule 25 mg PO TID PRN (Reason: itching) Qty: 20 0RF No Action gabapentin 300 mg capsule 300 mg PO BID 30 Days Qty: 60 6RF lidocaine [DermacinRx Lidocan] 5 % adhesive patch,medicated 1 patch topical Q24H Qty: 30 0RF Rx Instructions: leave on most painful area for up to 12 hrs gabapentin 600 mg tablet 600 mg PO BID 30 Days Qty: 60 1RF cyclobenzaprine 10 mg tablet 10 mg PO BID PRN (Reason: muscle spasm) 30 Days Qty: 60 3RF hyoscyamine sulfate 0.125 mg tablet 0.125 mg PO QID PRN (Reason: dyspepsia) Qty: 14 0RF oxycodone 5 mg tablet 5 mg PO Q6H PRN (Reason: pain) Qty: 20 0RF Rx Instructions: Partial Fill upon patient request. omeprazole 40 mg capsule,delayed release(DR/EC) 40 mg PO DAILY Qty: 30 0RF sucralfate 1 gram tablet 1 g PO TID Qty: 90 0RF multivitamin Tablet 1 tab PO DAILY acetaminophen [Tylenol Extra Strength] 500 mg tablet 500 mg PO Q6H PRN (Reason: fever or pain) Qty: 14 0RF lidocaine [Lidoderm] 5 % adhesive patch,medicated 1 patch topical DAILY MDD remove after 12 hours PRN (Reason: pain) Qty: 30 0RF Rx Instructions: leave on most painful area for up to 12 hrs naproxen 500 mg tablet 500 mg PO BID PRN (Reason: pain) 10 Days Qty: 20 0RF ondansetron 4 mg tablet,disintegrating 4 mg PO Q8H PRN (Reason: nausea and vomiting) Qty: 5 0RF acetaminophen 500 mg tablet 500 mg PO Q6H PRN (Reason: fever) Qty: 60 0RF Rx Instructions: Take 1 tablet every 6 hours as needed for pain/fever. Do not take in combination with Fioricet. ryzjyrsyvz-zitlrajlit-fis-cod [id number] mg capsule 1 cap PO Q6H PRN (Reason: Headaches) paroxetine HCl 20 mg tablet 20 mg PO DAILY PRN diclofenac sodium 75 mg tablet,delayed release (DR/EC) 75 mg PO BID levonorgestrel 1.5 mg tablet 1.5 mg PO DIRECTED Interventions: ED Discharge Assessment Last Done: 12/25/24 02:34 Discharge Date/Time: 12/25/24 02:34 Print Language: [place]
[2024-12-25] MEDS: predniSONE 20 MG TABLET 40 MG PO (02:30)
[2024-12-25] MEDS: diphenhydrAMINE HCL 25 MG CAPSULE PO (02:30)
[2024-12-25 02:34] VITALS: BP 129/41; PULSE 80; RESP 18; TEMP 36.6; O2SAT 95
== END 2024-12-25 02:34 | disposition home or self-care (01) ==
LOC: HO.ED 12-25 02:31
PROVIDERS: Emergency Provider Internal Medicine; PCP Physician Assistant
DX: S80.862A Insect bite (nonvenomous), left lower leg, initial encounter (principal); S80.861A Insect bite (nonvenomous), right lower leg, initial encounter; W57.XXXA Bitten or stung by nonvenomous insect and other nonvenomous arthropods, initial encounter; Y93.9 Activity, unspecified; Y92.410 Unspecified street and highway as the place of occurrence of the external cause; Y99.9 Unspecified external cause status; R21 Rash and other nonspecific skin eruption; F17.210 Nicotine dependence, cigarettes, uncomplicated; F12.90 Cannabis use, unspecified, uncomplicated
CPT/HCPCS: 99283; 99284

== ENCOUNTER 2024-12-27 12:49 | Outpatient (AMB) | payer MEDICARE, MEDICAID, SELFPAY ==
[2024-12-27 12:58] VITALS: BP 120/80; PULSE 98; O2SAT 96; BMI 28.3
--- NOTE | 2024-12-27 12:58 | AM.OFFWIN_ITS ---
Intake Vital Signs 12/27/24 12:58 Height 5 ft 2 in Weight 155 lb BMI 28.3 BP 120/80 Blood Pressure Location Rt brachial Position Sitting Pulse 98 Pulse Source Pulse Oximeter Pulse Oximetry (%) 96 Oxygen Delivery Method Room Air Intake Visit Reasons: EP rash, itch unbearable FT, leg, arm Intake Note: Patient here for internal itching that has been present for about a week or so. Patient Tobacco Use Status: Current everyday Tobacco user Allergies topiramate [From TOPAMAX] Allergy (Mild, Verified 12/27/24 12:59) NAUSEA & VOMITING divalproex sodium [From DEPAKOTE] Adverse Reaction (Unknown, Verified 12/27/24 12:59) NAUSEA & VOMITING Do you need a note to return to daycare/school/sports/work: No HPI HPI Comments History of Present Illness Details History of Present Illness - The patient is a 49-year-old female pr esenting with a rash. - Initially, she started with itching in side the arm, starting last Thursday, w hich has since become severe enough to cause scratching amezquita on the arm. - She identified small, spot-like lesion s on the body, particularly on the top of her foot and buttock, resembling insect bites. - Due to the severity and clustering of the spots, possible insect bites were discussed, including bed bug infestation. - The patient is homeless and resides in a camper under constrained living conditions, without basic utilities, and currently lacks stable housing and financial resources following recent unemployment. - She has not tried anything for the myriam h. - He denies fever, chills, joint pain, C P, SOB, abd pain, n/v/d. She denies sick contacts. Physical Exam General: Cooperative, healthy appearing, comfortable, no acute distress and well developed, unkempt Respiratory: Normal respiratory effort and able to speak in complete sentences. Clear to auscultation bilaterally Cardiovascular: Regular rate and rhythm. Normal S1 and S2 Skin: Multiple small bite-like lesions noted, particularly on the top of the foot, lower legs, and buttock, very itchy, red, non-tender Neuro: Patient oriented x3 Extremities: Normal to inspection, no edema noted. Patient was informed and verbally consented to the use of an ambient scribe for clinic note documentation during this visit. [facility] Medical History (Updated 12/26/24 @ 00:00 by Background Daemnima) Nicotine dependence, cigarettes, uncomplicated Wrist pain, left Ankle pain, left Obesity Restless leg syndrome Migraine Anxiety Fibromyalgia Surgical History H/O rectal polypectomy History of surgery History of hernia repair History of wisdom tooth extraction History of tonsillectomy History of umbilical hernia repair H/O LEEP History of colectomy Family History Father CVD (cardiovascular disease) Myocardial infarction Mother Chronic mental illness Dementia Myocardial infarction, Onset Age: 40 Seizure Sister In good health Son In good health Maternal Aunt Breast CA Paternal Aunt Breast CA Other Mental health disorder Social History Household Members Other:: roommate Housing: Other Housing Other:: lives in [facility] Do you presently have visiting nurse or other home services: No Unable to assess alcohol history related to: Unknown Alcohol intake: former Patient Tobacco Use Status: Current everyday Tobacco user Tobacco use type: Cigarette Cigarette Packs Per Day: 1 Cigarettes Per Day: 20.0 Years Smoked: 15 e-Cigarette/Vaping Use: Never Used Second Hand Smoke Exposure: Yes Substance Use Type: Marijuana Advance Directives Date on File: 09/17/22 service: No Current occupational status: disabled Cognitive needs: No Hearing needs: No Vision needs: No Review of Systems Const All systems reviewed & are unremarkable except as noted in HPI and below Physical Exam Vital Signs: Last Vital Signs Pulse 98 12/27/24 12:58 BP 120/80 12/27/24 12:58 Pulse Ox 96 12/27/24 12:58 Oxygen Delivery Method Room Air 12/27/24 12:58 BMI result Body Mass Index 28.3 Assessment & Plan Assessment & Plan (1) Rash: Code(s): R21 - Rash and other nonspecific skin eruption Plan Most likely scabies vs bed bugs vs contact dermatitis vs allergic reaction Plan - Prescribe and advise on the use of permetherin cream, with instructions to apply it for a designated time and repeat after several days. - Recommend laundering clothing and bedding in hot water to address potential insect infestation, considering the patient's limited access to such facilities. - Encourage collaboration with nephrology social worker via the patient?s access navigator to arrange for necessary support, such as stable housing. - Follow up on the patient?s condition and treatment effectiveness. Medications: New permethrin 5% apply second treatment 14 days after first treatment if live lice remain 1 appl topical Q14D 60 grams 0RF Coding Level of Care Code Est Pt Level 3 (33501) Diagnoses Rash R21
== END 2024-12-27 14:02 | disposition home or self-care (01) ==
PROVIDERS: PCP Physician Assistant; Visit Provider Physician Assistant Medical
DX: R21 Rash and other nonspecific skin eruption (principal)

== ENCOUNTER → 2024-12-27 12:49 | Outpatient (BNVA) | payer MEDICARE, MEDICAID, SELFPAY | PROVIDERS: PCP Physician Assistant; Visit Provider Physician Assistant Medical | DX: R21 Rash and other nonspecific skin eruption (principal) | CPT/HCPCS: 99212 ==

== ENCOUNTER 2025-01-15 14:29 | Emergency (ER) | payer MEDICARE, MEDICAID, SELFPAY ==
--- NOTE | ~2025-01-15 | XR_ITS ---
CLINICAL HISTORY: cough fevers 2 view chest x-ray. Comparison: CR - XR CHEST 2V - 10/23/24 14:13 EDT Findings: The lungs are adequately expanded. No focal consolidation. No effusion or pneumothorax. Cardiac and mediastinal contours are within normal limits. No acute osseous abnormality Impression: No acute process. This document has been electronically signed by: Jaciel Quiñones MD on 01/15/2025 16:06:06
[2025-01-15 14:40] VITALS: BP 95/54; PULSE 95; RESP 16; TEMP 36.8; O2SAT 95; BMI 29.8
--- NOTE | 2025-01-15 14:45 | ED.URI ---
HPI - URI/Sore Throat General Chief Complaint: Upper Respiratory Symptoms Stated Complaint: fever Time Seen by Provider: 01/15/25 16:41 Source: patient Mode of arrival: ambulatory Limitations: no limitations History of Present Illness ED Provider: Venancio Kasper Related Data Home Medications ?Medication ?Instructions ?Recorded ?Confirmed butalbital 50 mg-acetaminophen 325 1 cap PO Q6H PRN Headaches 02/26/23 10/25/24 mg-caffeine 40 mg-codeine 30 mg cap multivitamin 1 tab PO DAILY 04/19/24 10/25/24 diclofenac sodium 75 mg 75 mg PO BID 06/28/24 10/25/24 tablet,delayed release paroxetine HCl 20 mg tablet 20 mg PO DAILY PRN 10/25/24 10/25/24 levonorgestrel 1.5 mg tablet 1.5 mg PO DIRECTED 11/03/24 amitriptyline 25 mg tablet mg PO 12/27/24 Previous Rx's ?Medication ?Instructions ?Recorded acetaminophen 500 mg tablet 500 mg PO Q6H PRN fever #60 tabs 04/23/23 hyoscyamine sulfate 0.125 mg tablet 0.125 mg PO QID PRN dyspepsia #14 08/18/24 tabs gabapentin 300 mg capsule 300 mg PO BID 30 days #60 caps 10/19/24 Held on 11/23/24. Instructions: Doctor's Order lidocaine 5 % topical patch 1 patch topical Q24H #30 ea 11/09/24 (DermacinRx Lidocan) gabapentin 600 mg tablet 600 mg PO BID 30 days #60 tabs 11/23/24 lidocaine 5 % topical patch 1 patch topical DAILY PRN pain #30 12/11/24 (Lidoderm) ea naproxen 500 mg tablet 500 mg PO BID PRN pain 10 days #20 12/11/24 tabs ondansetron 4 mg disintegrating 4 mg PO Q8H PRN nausea and 12/11/24 tablet vomiting #5 tabs omeprazole 40 mg capsule,delayed 40 mg PO DAILY #30 caps 12/13/24 release oxycodone 5 mg tablet 5 mg PO Q6H PRN pain #20 tabs 12/13/24 sucralfate 1 gram tablet 1 g PO TID #90 tabs 12/13/24 cyclobenzaprine 10 mg tablet 10 mg PO BID PRN muscle spasm 30 12/21/24 days #60 tabs diphenhydramine HCl 25 mg capsule 25 mg PO TID PRN itching #20 caps 12/25/24 (Benadryl) prednisone 20 mg tablet 40 mg (2 x 20 mg) PO DAILY #10 tabs 12/25/24 permethrin 5 % topical cream 1 appl topical Q14D #60 grams 12/27/24 albuterol sulfate 90 mcg/actuation 2 puff inhalation Q4-6H PRN 01/15/25 aerosol inhaler (Ventolin HFA) shortness of breath or wheezing #8.5 grams azithromycin 250 mg tablet See Rx Instructions PO .COMPLEX #6 01/15/25 tabs benzonatate 200 mg capsule 200 mg PO TID PRN cough #15 caps 01/15/25 Allergies Allergy/AdvReac Type Severity Reaction Status Date / Time topiramate (From TOPAMAX) Allergy Mild NAUSEA & Verified 01/15/25 14:43 VOMITING divalproex sodium (From AdvReac Unknown NAUSEA & Verified 01/15/25 14:43 DEPAKOTE) VOMITING [facility] Past Medical History Medical History (Updated 01/16/25 @ 00:01 by Casper Garcia) Nicotine dependence, cigarettes, uncomplicated Wrist pain, left Ankle pain, left Obesity Restless leg syndrome Migraine Anxiety Fibromyalgia Surgical History H/O rectal polypectomy History of surgery History of hernia repair History of wisdom tooth extraction History of tonsillectomy History of umbilical hernia repair H/O LEEP History of colectomy Family History Family History Father CVD (cardiovascular disease) Myocardial infarction Mother Chronic mental illness Dementia Myocardial infarction, Onset Age: 40 Seizure Sister In good health Son In good health Maternal Aunt Breast CA Paternal Aunt Breast CA Other Mental health disorder Social History Social History Household Members Other:: roommate Housing: Other Housing Other:: lives in skilled nursing Do you presently have visiting nurse or other home services: No Unable to assess alcohol history related to: Unknown Alcohol intake: former Patient Tobacco Use Status: Current everyday Tobacco user Tobacco use type: Cigarette Cigarette Packs Per Day: 1 Cigarettes Per Day: 20.0 Years Smoked: 15 e-Cigarette/Vaping Use: Never Used Second Hand Smoke Exposure: Yes Substance Use Type: Marijuana Advance Directives: Yes Advance Directives Date on File: 09/17/22 Do you have a plan to hurt others: No Plan service: No Current occupational status: disabled Cognitive needs: No Hearing needs: No Vision needs: No Physical Exam Vital Signs: Vital Signs: Last Vital Signs Temp 98.4 F 01/15/25 17:43 Pulse 80 01/15/25 17:43 Resp 20 01/15/25 17:43 BP 117/80 01/15/25 17:43 Pulse Ox 98 01/15/25 17:43 O2 Del Method Room Air 01/15/25 17:43 BMI result Body Mass Index 29.8 Course Course Course Narrative: 01/15/25 1445 JAZMINE Birch This is a Rapid Medical Examination (RME) performed by Yimi Gan PA-C in triage. Full HPI, ROS, assessment and treatment plan per primary provider in the Main ED. Hx: 50 yo F here w/ cough, subjective fevers, sore throat, headache x1 day. denies sob, chest pain. no known hx asthma/copd. Plan: viral/strep swabs, cxr Medical Decision Making Medical Decision Making [facility] Narrative: 50 yold female presents to the ED for URI SYmptoms. Patient states cough subjective fever, sore throat, and chills for 1 day. Patient exposed to a friend positive for bronchitis. Patient denies any chest pain or shortness of breath. Patient denies any leg swelling pitting edema, calf pain, abdominal pain, any urinary/bowel incontinence. Patient denies any urinary/bowel symptoms. Not suspecting DE, PE, CHF, respiratory failure, hypoxia, any life-threatening etiology. Patient is supple albuterol inhaler, antibiotic, and Tessalon Perles Differential Diagnosis Differential Diagnoses: The differential diagnosis associated with the presentation includes (SARs strep COVID pneumonia) Admission/Observation Consideration of admission/observation: Escalation of care including admission/observation considered Lab Data [facility] Lab Attestation statement: I reviewed the patient's lab results. Labs: Lab Results 01/15/25 Range/Units 15:15 Influenza Type A (PCR) NEGATIVE (Negative) Influenza Type B (PCR) NEGATIVE (Negative) RSV RNA Qual (PCR) NEGATIVE (Negative) SARS-CoV-2 RNA (RT-PCR) NEGATIVE (Negative) S. pyogenes GrpA PATRICIA Negative (Negative) Independent Interpretation I performed an independent interpretation of an: Plain X-Ray Independent Historian Clinical information obtained from an independent historian. History obtained from or confirmed by: Other (Patient) Prescription Management I considered prescription management with: Antibiotic Discharge Plan Discharge Clinical Impression: Acute bronchitis Patient Disposition: Home, Self-Care Instructions: Upper Respiratory Infection (ED), Acute Bronchitis (ED) Additional Instructions: Recommend follow-up with primary care provider. Return to the ED immediately for any chest pain, shortness of breath, coughing up blood, weakness, dizziness, or any other concerning symptoms. Prescriptions: New azithromycin 250 mg tablet See Rx Instructions .ROUTE .COMPLEX Qty: 6 0RF Rx Instructions: For 250 mg dose pack: take 500 mg today (day 1), then 250 mg for 4 days (days 2-5) benzonatate 200 mg capsule 200 mg PO TID PRN (Reason: cough) Qty: 15 0RF albuterol sulfate [Ventolin HFA] 90 mcg/actuation HFA aerosol inhaler 2 puff inhalation Q4-6H PRN (Reason: shortness of breath or wheezing) Qty: 8.5 0RF No Action gabapentin 300 mg capsule 300 mg PO BID 30 Days Qty: 60 6RF lidocaine [DermacinRx Lidocan] 5 % adhesive patch,medicated 1 patch topical Q24H Qty: 30 0RF Rx Instructions: leave on most painful area for up to 12 hrs gabapentin 600 mg tablet 600 mg PO BID 30 Days Qty: 60 1RF cyclobenzaprine 10 mg tablet 10 mg PO BID PRN (Reason: muscle spasm) 30 Days Qty: 60 3RF hyoscyamine sulfate 0.125 mg tablet 0.125 mg PO QID PRN (Reason: dyspepsia) Qty: 14 0RF oxycodone 5 mg tablet 5 mg PO Q6H PRN (Reason: pain) Qty: 20 0RF Rx Instructions: Partial Fill upon patient request. omeprazole 40 mg capsule,delayed release(DR/EC) 40 mg PO DAILY Qty: 30 0RF sucralfate 1 gram tablet 1 g PO TID Qty: 90 0RF multivitamin Tablet 1 tab PO DAILY lidocaine [Lidoderm] 5 % adhesive patch,medicated 1 patch topical DAILY MDD remove after 12 hours PRN (Reason: pain) Qty: 30 0RF Rx Instructions: leave on most painful area for up to 12 hrs naproxen 500 mg tablet 500 mg PO BID PRN (Reason: pain) 10 Days Qty: 20 0RF ondansetron 4 mg tablet,disintegrating 4 mg PO Q8H PRN (Reason: nausea and vomiting) Qty: 5 0RF prednisone 20 mg tablet 40 mg PO DAILY Qty: 10 0RF diphenhydramine HCl [Benadryl] 25 mg capsule 25 mg PO TID PRN (Reason: itching) Qty: 20 0RF acetaminophen 500 mg tablet 500 mg PO Q6H PRN (Reason: fever) Qty: 60 0RF Rx Instructions: Take 1 tablet every 6 hours as needed for pain/fever. Do not take in combination with Fioricet. godnkusntp-cfbhvyawri-dhv-cod 82-702-12-30 mg capsule 1 cap PO Q6H PRN (Reason: Headaches) paroxetine HCl 20 mg tablet 20 mg PO DAILY PRN diclofenac sodium 75 mg tablet,delayed release (DR/EC) 75 mg PO BID amitriptyline 25 mg tablet PO permethrin 5 % cream 1 appl topical Q14D Qty: 60 0RF Rx Instructions: apply second treatment 14 days after first treatment if live lice remain levonorgestrel 1.5 mg tablet 1.5 mg PO DIRECTED Referrals: Rudy Barth PA-C [Primary Care Provider, Internal Medicine] - 1 day Referral Note: URI symptoms. Clinical Impression: Acute bronchitis Stand Alone Forms: Work/School Release Interventions: ED Discharge Assessment Last Done: 01/15/25 17:43 Discharge Date/Time: 01/15/25 17:43 Print Language: Yoruba
[2025-01-15 15:37] LABS: IDNOW Serial# 58CA691E; Strep A Nucleic Acid Negative (Negative)
[2025-01-15 16:09] LABS: Influenza A PCR NEGATIVE (Negative); Influenza B PCR NEGATIVE (Negative); Resp Syncy Virus RNA Qual PCR NEGATIVE (Negative); SARS COV2 PCR INHOUSE NEGATIVE (Negative)
--- OUTSIDE RECORDS SUMMARY | 2025-01-15 16:57 | XMS_ITS | Data Portability ---
Author Organization [facility] Kang [facility], [facility] [employer] Address [address] [place] [address] Care Team Providers Care Workforce Planner Name Role Phone SHANITA MARTIN Primary Care Provider [phone] Assessment Encounter Date Assessment Date Assessment LastModified by Organization Details LastModified Time 03/01/2024 03/01/2024 Telemedicine Telephone Encounter Patient Location: Home Physician Location: [facility] [place], [place] Time spent with patient: 12 mins [...] inversion sprain. She currently lives in a half-way. She was seen at [facility] where x-rays were negative. She later [...] reviewed, updated and is located in the patient s chart. PHYSICAL EXAMINATION: deferred Based on [...] the same service when rendered via a iufu-ga-nuwi interaction. I discussed with the patient the [...] 2023 024 [email or web address] [id number], [address], [place], [phone], 12:11:54 meloxicam 15 mg tablet [address] [id number], [address], [place], [phone], 15:05:00 Patient TargetsNo targets recorded. Patient InstructionsNo instructions recorded. Reason for Referral Physical Therapist Referral for Sprain of left ankle left ankle rehab rom, stretch, strengthening Referring Physician: Denice Winston, Orthopedic Surgery, Encounter Date: 03/31/2024 Results Created Date Observation Date Name Description Value Unit Range Abnormal Flag Note LastModifiedBy Organization Detail LastModifiedTime 02/15/20 24 02/15/2024 XR, foot, 2 view [email or web address]:/ [email or web address] ?Encry pted=s hAaTro YD8dLq bEUv6g %2BXZw aYqtaq 0bqfl% 2Fg9IQ a4ajBk vP9nXo QUaueC m3YtLR FvZlgJ JJ8mAn HZtai3 2x5803 AC0Koa HyNWaD eUC8mr 84%3D INTERFACE [facility] [address] [facility] [address], [place], [address], 02/15/2024 11:08:00 02/15/20 24 02/15/2024 XR, foot, 2 view http:/ /[email or web address] ?Encry pted=s hAaTro YD8dLq bEUv6g %2BXZw aYqtaq 0bqfl% 2Fg9IQ a4ajBk vP9nXo QUaueC m3YtLR FvZl [place] HZtai3 2e0873 AC0Koa HyNWaD eUC8mr 84%3D INTERFACE [facility] [address], [place], [address], 02/15/2024 11:08:02 02/15/20 24 02/15/2024 XR, ankle , 3 or more view [email or web address] ?Encry pted=s hAaTro YD8dLq bEUv6g %2BXZw aYqtaq 0bqfl% 2Fg9IQ a4ajBk vP9nXo QUaueC m3YtLR FvZl JJ8[place] HZtai3 0s5698 AC0Koa HyNWaP eUC8mr 84%3D INTERFACE [facility] [address], [place], [address], 02/15/2024 11:10:08 02/15/20 24 02/15/2024 XR, ankle , 3 or more view [email or web address] ?Encry pted=s hAaTro YD8dLq bEUv6g %2BXZw aYqtaq 0bqfl% 2Fg9IQ a4ajBk vP9nXo QUaueC m3YtLR [address] Streettai[address] 4f6623 AC0Koa HyNWaP eUC8mr 84%3D INTERFACE [facility] [address], [place], [address], 02/15/2024 11:10:10 02/16/[address], ankle + foot, w/o contr ast No observ ation record ed. [email or web address] Not Available 2023 15:11:58 Result Notes None recorded. Procedures Surgical History Date Name Laterality Status Provider Name and Address Organization Details Recorded Time 4 Cast Removal completed Mary Pederson [facility] 02/22/2024 12:07:49 4 Cast_Short Leg_11+ completed JOHN GARZA [facility] 02/18/2024 12:59:56 4 Cast Removal completed JOHNJUDY NEALECU [facility] 02/18/2024 12:57:56 Imaging Results None recorded. Procedure Notes None recorded. Medical Equipment None Reported. Allergies Allergen ID Allergen Name Allergen Category Reaction Reaction Severity Criticality Documentation Date Start Date Code Code System Note Provider Name and Address Organization Details Recorded Time 454583 Topamax medicatio n Not available Not available Not available 02/15/2024 00233 3 RxNorm [facility] 4 11:55:06 204567 Depakote medicatio n Not available Not available Not available 02/15/2024 89286 9 RxNorm [facility] 4 11:55:10 Medications Name Sig Start [...] Updated DateTime 03/31/2024 157.48 cm 28 kg/m2 59920.63 g Leydi [facility] 03/31/2024 11:20:03 Date Recorded Body height Body mass index (BMI) Body weight Provider Name and Address Organization Details Last Updated DateTime 05/16/2024 157.48 cm 28 kg/m2 00810.63 g [place] [facility] 05/16/2024 10:06:35 Date Recorded Body height Body mass index (BMI) Body weight Provider Name and Address Organization Details Last Updated DateTime 07/07/2024 157.48 cm 28 kg/m2 29000.63 g EDISON PHYLLIS [place] [facility] 07/07/2024 13:31:06 [...] SNOMED-CT Code Diagnosis ICD10 Code Diagnosis Note [id number] MD Gianfranco Jones [facility] [address] [place] [address] 02/15/2024 10:54:15 03/15/2024 10:13:08 Ankle pain 517045360 M25.572 Sprain of left ankle 734 7649215 3376937 S93.402A Closed fra cture of lateral malleolus of left fibula 7355963700 6543866 S82.65XA [id number] MD Gianfranco Jones [facility] [address] [address] 02/18/2024 12:13:19 02/18/2024 13:00:30 Fracture of ankle 47381803 S82.65XA [id number] MD Gianfranco Jones [facility] [address] [place] [address] 02/22/2024 10:57:56 02/22/2024 12:11:51 Sprain of left ankle 4576357089 3202812 S93.402A Sprain of lateral ligament of ankle joint 866264767 S93.492D [id number] MD Gianfranco Jones [address] [address] 03/01/2024 11:09:22 03/25/2024 10:43:23 Sprain of left ankle 8954103950 9414341 S93.402A [id number] GUNNAR Chau [address] [address] 03/31/2024 11:04:57 05/05/2024 09:25:42 Sprain of left ankle 5082545641 7336535 S93.402A [id number] Denice Winston PA-C [address] [place] [address] 05/16/2024 09:04:09 06/01/2024 20:41:20 Ankle pain 741826999 M25.360 [id number] Denice Winston PA-C [address] [place] [address] 07/07/2024 13:13:01 07/28/2024 11:52:44 Ankle pain 167925946 M25.579 Health Concerns Section Related Observation LastModified by Organization Detai ls LastModified Time None Recorded Concern Status LastModified by Organization Details LastModified Time None Recorded Advance Directives Directive None Recorded Payers Insurance Date Sequence Insurance Name Policy Number Policy Pearson Covered Member ID Pearson Member ID Guarantor Name 07/05/2024 1 [place] [facility] Abril Gonzalez [id number] Abril Gonzalez 04/28/2024 1 [employer] (MEDICARE REPLACEMENT/A DVANTAGE - PPO) [id number] Abril Gonzalez [id number] Abril Gonzalez 07/28/2024 2 [place] [facility] Abril Gonzalez [id number] Abril Gonzalez 04/28/2024 1 [place] [employer] [facility] Abril Gonzalez [id number] Abril Gonzalez 07/05/2024 [facility] - SPECIALITY CLAIMS (MEDICARE [facility] A) Abril Gonzalez [id number] Abril Gonzalez 05/06/2024 1 [employer] (MEDICARE REPLACEMENT/A DVANTAGE - PPO) [id number] Abril Gonzalez [id number] Abril Gonzalez Notes Date Note Type Note [...] reviewed, updated and is located in the patient s chart.PHYSICAL EXAMINATION:General: healthy appearing, in no [...] and side effects discussed. Denice Winston PA-C [address] [place] [address] [facility], [place], [address], [facility] 03/31/2024 12:44:58 05/16/2024 text/html [...] brace as needed. She lives at a half-way and is having difficulty getting transportation. She still complains of swelling and lateral sided ankle pain. She is a smoker. Nondiabetic.Past family, medical, social history and review of systems has been reviewed, updated and is located in the patient s chart.PHYSICAL EXAMINATION:General: healthy appearing, in no [...] in 6-8 weeks Denice Winston PA-C [address] [facility] [address], [place], [address], [facility] 05/16/2024 11:15:34 [...] a bad sprain. She lives at a half-way and is having difficulty getting transportation. She is a smoker. Nondiabetic.Past family, medical, social history and review of systems has been reviewed, updated and is located in the patient s chart.PHYSICAL EXAMINATION:General: healthy appearing, in no [...] full duty work. Denice Winston PA-C [address] [facility] [address], [place], [address], [facility] 07/07/2024 14:01:30 OBGyn Episode No OBEpisode recorded.
[2025-01-15 17:21] VITALS: BP 117/80; PULSE 80; RESP 20; O2SAT 98
[2025-01-15 17:43] VITALS: BP 117/80; PULSE 80; RESP 20; TEMP 36.9; O2SAT 98
== END 2025-01-15 17:43 | disposition home or self-care (01) ==
PROVIDERS: Physician Assistant Medical; Emergency Provider Emergency Medicine; PCP Physician Assistant
DX: J20.9 Acute bronchitis, unspecified (principal); R05.9 Cough, unspecified; R50.9 Fever, unspecified; Z79.899 Other long term (current) drug therapy; Z03.818 Encounter for observation for suspected exposure to other biological agents ruled out
CPT/HCPCS: 0241U; 71046; 87651; 99283

== ENCOUNTER → 2025-01-15 14:44 | Outpatient (BNV) | payer MEDICARE, MEDICAID, SELFPAY | PROVIDERS: Emergency Provider Emergency Medicine; PCP Physician Assistant; Visit Provider Radiology Vascular & Interventional Radiology | DX: R50.9 Fever, unspecified (principal) | CPT/HCPCS: 71046 ==

== ENCOUNTER 2025-01-19 11:14 | Outpatient (AMB) | payer MEDICARE, MEDICAID, SELFPAY ==
[2025-01-19 11:36] VITALS: BP 116/80; PULSE 78; TEMP 36.9; O2SAT 95; BMI 29.4
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
--- OUTSIDE RECORDS SUMMARY | 2025-01-19 12:03 | XMS_ITS | Data Portability ---
Author Organization [facility], [facility] [place] Address [address] [place] [address] Care Team Providers Care Director Of Reimbursement Name Role Phone SHANITA MARTIN Primary Care Provider Assessment Encounter Date Assessment Date Assessment LastModified by Organization Details LastModified Time 03/01/2024 03/01/2024 Telemedicine Telephone Encounter Patient Location: Home Physician Location: [facility] Office [place], [place] Time spent with patient: 12 mins [...] in a long-term. She was seen at [facility] where x-rays were negative. She later [...] demonstrating question of a subtle nondisplaced oblique Ekndrick A distal fibular fracture and question of [...] telemedicine service was sufficient to meet the cotrez components and/or requirement of the same service when rendered via a iztp-op-eqlx interaction. I discussed with the patient the risks and benefits of telemedicine services and the patient consented to the receipt of such telemedicine services. [email or web address] Not available 03/01/2024 12:09:05 Plan of Treatment Reminders Order Date Submit Date Provider Last Modified By Organization Details Last Modified Time Details Appointments NEW PATIENT 15 2024 01:45P M Ayan Briceno MD Not available Not available Not available Lab None recorded. Referral physical therapist referral - left ankle rehab rom, stretch, strengthe fernando 2023 024 [email or web address] Not available 03/31/2024 15:05:00 Procedures None recorded. Surgeries None recorded. Imaging None recorded. Medication Orders meloxicam 15 mg tablet [address] [facility] [address], [address] [place], [place], [phone], 05/16/2024 12:11:54 meloxicam 15 mg tablet [address] [facility] [address], [address] [place], [place], [phone], 03/31/2024 15:05:00 Patient TargetsNo targets recorded. Patient InstructionsNo instructions recorded. Reason for Referral Physical Therapist Referral for Sprain of left ankle left ankle rehab rom, stretch, strengthening Referring Physician: Denice Winston, Orthopedic Surgery, Encounter Date: 03/31/2024 Results Created Date Observation Date Name Description Value Unit Range Abnormal Flag Note LastModifiedBy Organization Detail LastModifiedTime 02/15/20 24 02/15/2024 XR, foot, 2 view [email or web address] ?Encry pted=s hAaTro YD8dLq bEUv6g %2BXZw aYqtaq 0bqfl% 2Fg9IQ a4ajBk vP9nXo QUaueC m3YtLR FvZlgJ JJ8mAn HZtai3 4y5624 AC0Koa HyNWaD eUC8mr 84%3D INTERFACE [facility] [address] [facility] [address], [place], [address], 02/15/2024 11:08:00 02/15/20 24 02/15/2024 XR, foot, 2 view [email or web address] ?Encry pted=s hAaTro YD8dLq bEUv6g %2BXZw aYqtaq 0bqfl% 2Fg9IQ a4ajBk vP9nXo QUaueC m3YtLR FvZl J8Jeannette HZtai3 0w9964 AC0Koa HyNWaD eUC8mr 84%3D INTERFACE [facility] [address], [place], [address], 02/15/2024 11:08:02 02/15/20 24 02/15/2024 XR, ankle , 3 or more view [email or web address] ?Encry pted=s hAaTro YD8dLq bEUv6g %2BXZw aYqtaq 0bqfl% 2Fg9IQ a4ajBk vP9nXo QUaueC m3YtLR FvZl J8Jeannette HZtai3 6e3209 AC0Koa HyNWaP eUC8mr 84%3D INTERFACE [facility] [address], [place], [address], 02/15/2024 11:10:08 02/15/20 24 02/15/2024 XR, ankle , 3 or more view [email or web address] ?Encry pted=s hAaTro YD8dLq bEUv6g %2BXZw aYqtaq 0bqfl% 2Fg9IQ a4ajBk vP9nXo QUaueC m3YtLR Zl[address] HZtai3 4d4151 AC0Koa HyNWaP eUC8mr 84%3D INTERFACE [facility] [address], [place], [address], 02/15/2024 11:10:10 02/16/[address], ankle + foot, w/o contr ast No observ ation record ed. [email or web address] Not Available 2023 15:11:58 Result Notes None recorded. Procedures Surgical History Date Name Laterality Status Provider Name and Address Organization Details Recorded Time 4 Cast Removal completed Mary Pederson [facility] 02/22/2024 12:07:49 4 Cast_Short Leg_11+ completed JOHN GARZA [facility] 02/18/2024 12:59:56 4 Cast Removal completed JOHN [facility] 02/18/2024 12:57:56 Imaging Results None recorded. Procedure Notes None recorded. Medical Equipment None Reported. Allergies Allergen ID Allergen Name Allergen Category Reaction Reaction Severity Criticality Documentation Date Start Date Code Code System Note Provider Name and Address Organization Details Recorded Time 869335 Topamax medicatio n Not available Not available Not available 02/15/2024 38715 3 RxNorm [facility] 4 11:55:06 718792 Depakote medicatio n Not available Not available Not available 02/15/2024 04237 9 RxNorm [facility] 4 11:55:10 Medications Name Sig Start Date [...] Updated DateTime 03/31/2024 157.48 cm 28 kg/m2 03809.63 g Leydi Avalos [facility] 03/31/2024 11:20:03 Date Recorded Body height Body mass index (BMI) Body weight Provider Name and Address Organization Details Last Updated DateTime 05/16/2024 157.48 cm 28 kg/m2 85067.63 g [facility] 05/16/2024 10:06:35 Date Recorded Body height Body mass index (BMI) Body weight Provider Name and Address Organization Details Last Updated DateTime 07/07/2024 157.48 cm 28 kg/m2 75727.63 g EDISON FERGUSON [place] - [facility] 07/07/2024 13:31:06 Social History None recorded. Functional Status None recorded. Mental Status None recorded. Family History Nothing Reported. Medical History No medical history recorded. Gynecological HistoryNo gynecological history recorded. Obstetrics History GPAL:G 0 P 0 0 0 0 Past Encounters Encounter ID Performer Location Encounter Start Date Encounter Closed Date Diagnosis/Indication Diagnosis SNOMED-CT Code Diagnosis ICD10 Code Diagnosis Note [id number] MD Gianfranco Jones [facility] [address] [place] [address] 02/15/2024 10:54:15 03/15/2024 10:13:08 Ankle pain 679472982 M25.572 Sprain of left ankle 427 7238823 1343545 S93.402A Closed fra cture of lateral malleolus of left fibula 6535153197 6027877 S82.65XA [id number] MD Gianfranco Jones [facility] [address] [place] [address] 02/18/2024 12:13:19 02/18/2024 13:00:30 Fracture of ankle 14517045 S82.65XA [id number] MD Gianfranco Jones [facility] [address] [place] [address] 02/22/2024 10:57:56 02/22/2024 12:11:51 Sprain of left ankle 2740586770 1233872 S93.402A Sprain of lateral ligament of ankle joint 273407821 S93.492D [id number] MD Gianfranco Jones [facility] [address] [place] [address] 03/01/2024 11:09:22 03/25/2024 10:43:23 Sprain of left ankle 5376127569 5045214 S93.402A [id number] UGNNAR Chau [facility] [facility] [address] [place] [address] 03/31/2024 11:04:57 05/05/2024 09:25:42 Sprain of left ankle 7715815705 8208648 S93.402A [id number] Denice Winston PA-C [facility] [address] [place] [address] 05/16/2024 09:04:09 06/01/2024 20:41:20 Ankle pain 713294766 M25.063 [id number] Denice Winston PA-C [facility] [address] [place] [address] 07/07/2024 13:13:01 07/28/2024 11:52:44 Ankle pain 128596975 M25.579 Health Concerns Section Related Observation LastModified by Organization Detai ls LastModified Time None Recorded Concern Status LastModified by Organization Details LastModified Time None Recorded Advance Directives Directive None Recorded Payers Insurance Date Sequence Insurance Name Policy Number Policy Pearson Covered Member ID Pearson Member ID Guarantor Name 01/16/2025 1 [place] B[place]: [employer] Abril Gonzalez [id number] Abril Gonzalez 04/28/2024 1 AETNA (MEDICARE REPLACEMENT/A DVANTAGE - PPO) [id number] Abril Gonzalez [id number] Abril Gonzalez 01/16/2025 2 [place] [facility] Abril Gonzalez [id number] Abril Gonzlaez 04/28/2024 1 MEDICARE B-[place]: [facility] [employer] Abril Gonzalez [id number] Abril Gonzalez 07/05/2024 [employer]IAN - SPECIALITY CLAIMS (MEDICARE DME REGION A) Abril Gonzalez [id number] Abril Gonzalez 05/06/2024 1 AETNA (MEDICARE REPLACEMENT/A DVANTAGE - PPO) [id number] Abril Gonzalez [id number] Abril Gonzalez Notes Date Note Type Note [...] and side effects discussed. Denice Winston PA-C [address] [place] [address] [address], [place], [address], [facility] 03/31/2024 12:44:58 05/16/2024 text/html [...] in 6-8 weeks Denice Winston PA-C [address] [facility] [address], [place], [address], [facility] 05/16/2024 11:15:34 07/07/2024 text/html [...] for back to full duty work. Denice Wniston PA-C [address] [facility] [address], [place], [address], [facility] 07/07/2024 14:01:30 OBGyn Episode No OBEpisode recorded.
--- OUTSIDE RECORDS SUMMARY | 2025-01-19 12:04 | XMS_ITS | Patient Health Record ---
Author Organization [facility] Address [address] [place] [address] Care Team Providers Care Senior Ssis Developer Name Role Phone SHANITA JONES Primary Care [...] Risk Notes Problem Lumbosacral spondylosis without myelopathy (71184645) Spondylosis without myelopathy or radiculopathy, lumbar region (M47.816) Active confirmed Plan Of Treatment No Information Insurance Providers Payer Name Payer Address Payer Phone Subscriber Number Group Number Insured Name Patient Relationship to Insured Coverage Start Date Coverage End Date Medicare B [facility] [address] [place] [phone] [id number] RAMIREZ RILEYE Self - patient is the insured [employer] Medicaid of [place] [address] [place] [phone] [id number] RAMIREZ RILEYE Self - patient is the [...]
== END 2025-01-19 14:03 | disposition home or self-care (01) ==
PROVIDERS: PCP Physician Assistant; Visit Provider Nurse Practitioner Family
DX: Z13.9 Encounter for screening, unspecified (principal); J40 Bronchitis, not specified as acute or chronic

== ENCOUNTER 2025-01-19 11:14 | Outpatient (REF) | payer MEDICARE, MEDICAID, SELFPAY ==
--- NOTE | ~2025-01-19 | XR_ITS ---
EXAMINATION: XR CHEST CLINICAL INFORMATION: J40 - Bronchitis, not specified as acute or chronic COMPARISON: January 15, 2025. TECHNIQUE: 2 views of the chest were obtained. FINDINGS: No consolidation, PA No pneumothorax. Blunting of the posterior left costophrenic angle. Cardiomediastinal silhouette size is normal. Multilevel thoracolumbar spondylosis. S-shaped curvature of the mid thoracic spine. Degenerative changes in the acromioclavicular joints. XR/XR chest 2V IMPRESSION: Questionable small left-sided pleural effusion versus pleural thickening. Electronically signed by: Romero Molina MD 01/19/2025 01:48 PM EDT
== END 2025-01-19 11:15 | disposition home or self-care (01) ==
LOC: HO.HMGCX 11:14
PROVIDERS: PCP Physician Assistant; Visit Provider Nurse Practitioner Family
DX: J40 Bronchitis, not specified as acute or chronic (principal); F17.210 Nicotine dependence, cigarettes, uncomplicated
CPT/HCPCS: 71046; 81025; 99212

== ENCOUNTER → 2025-01-19 13:11 | Outpatient (BNV) | payer MEDICARE, MEDICAID, SELFPAY | PROVIDERS: PCP Physician Assistant; Visit Provider Radiology Diagnostic Radiology | DX: J40 Bronchitis, not specified as acute or chronic (principal) | CPT/HCPCS: 71046 ==

== ENCOUNTER 2025-01-26 15:02 | Outpatient (AMB) | payer MEDICARE, MEDICAID, SELFPAY ==
--- OUTSIDE RECORDS SUMMARY | 2025-01-26 15:05 | XMS_ITS | Patient Health Record ---
Author Organization [facility] Address [address] [place] [address] Care Team Providers Care Geospatial Specialist Name Role Phone SHANITA JONES Primary Care [...] Problem Status W/U Status Risk Notes Problem Spondylosis without myelopathy or radiculopathy, lumbar region (M47.816) Active confirmed Plan Of Treatment No Information Insurance Providers Payer Name Payer Address Payer Phone Subscriber Number Group Number Insured Name Patient Relationship to Insured Coverage Start Date Coverage End Date Medicare B [place] [address] [place] [phone] [id number] ROXANNA RILEY Self - patient is the insured [employer] Medicaid of [facility] [address] [place] [phone] [id number] ROXANNA RILEY Self - patient is the insured Medical [...]
--- OUTSIDE RECORDS SUMMARY | 2025-01-26 15:05 | XMS_ITS | Data Portability ---
Author Organization [facility], [facility] [place] Address [address] [place] [address] Care Team Providers Care Engine Head Repairer Name Role Phone SHANITA MARTIN Primary Care Provider Assessment Encounter Date Assessment Date Assessment LastModified by Organization Details LastModified Time 03/01/2024 03/01/2024 Telemedicine Telephone Encounter Patient Location: Home Physician Location: [facility] Office [place], [place] Time spent with patient: 12 mins [...] health care facility. She was seen at [facility] where x-rays were negative. She later [...] the same service when rendered via a czuj-qq-ncvf interaction. I discussed with the patient the [...] Orders meloxicam 15 mg tablet [address] [facility] [address], [address] [place], [place], [phone], 05/16/2024 12:11:54 meloxicam 15 mg tablet [address] [facility] [address], [address] [place], [place], [phone], 03/31/2024 15:05:00 Patient TargetsNo targets recorded. Patient [...] a4ajBk vP9nXo QUaueC m3YtLR FvZlgJ JJ8mAn HZtai3 2u7435 AC0Koa HyNWaD eUC8mr 84%3D INTERFACE [facility] [address] [facility] [address], [place], [address], 02/15/2024 11:08:00 02/15/20 24 02/15/2024 XR, foot, 2 view [email or web address] ?Encry pted=s hAaTro YD8dLq bEUv6g %2BXZw aYqtaq 0bqfl% 2Fg9IQ a4ajBk vP9nXo QUaueC m3YtLR FvZl J8[place] HZtai3 3b7315 AC0Koa HyNWaD eUC8mr 84%3D INTERFACE [facility] [address], [place], [address], 02/15/2024 11:08:02 02/15/20 24 02/15/2024 XR, ankle , 3 or more view [email or web address] ?Encry pted=s hAaTro YD8dLq bEUv6g %2BXZw aYqtaq 0bqfl% 2Fg9IQ a4ajBk vP9nXo QUaueC m3YtLR FvZl J8[place] HZtai3 5l8439 AC0Koa HyNWaP eUC8mr 84%3D INTERFACE [facility] [address], [place], [address], 02/15/2024 11:10:08 02/15/20 24 02/15/2024 XR, ankle , 3 or more view [email or web address] ?Encry pted=s hAaTro YD8dLq bEUv6g %2BXZw aYqtaq 0bqfl% 2Fg9IQ a4ajBk vP9nXo QUaueC m3YtLR Zl[address] HZtai3 6f2225 AC0Koa HyNWaP eUC8mr 84%3D INTERFACE [facility] [address], [place], [address], 02/15/2024 11:10:10 02/16/[address], ankle + foot, w/o contr ast No observ ation record ed. [email or web address] Not Available 2023 15:11:58 Result Notes None recorded. Procedures Surgical History Date Name Laterality Status Provider Name and Address Organization Details Recorded Time 4 Cast Removal completed Mary Pederson [facility] 02/22/2024 12:07:49 4 Cast_Short Leg_11+ completed JOHN GARZA [facility] 02/18/2024 12:59:56 4 Cast Removal completed JOHN [facility] 02/18/2024 12:57:56 Imaging Results None recorded. Procedure Notes None recorded. Medical Equipment None Reported. Allergies Allergen ID Allergen Name Allergen Category Reaction Reaction Severity Criticality Documentation Date Start Date Code Code System Note Provider Name and Address Organization Details Recorded Time 157506 Topamax medicatio n Not available Not available Not available 02/15/2024 52021 3 RxNorm [facility] 4 11:55:06 356329 Depakote medicatio n Not available Not available Not available 02/15/2024 92153 9 RxNorm [facility] 4 11:55:10 Medications Name Sig [...] Updated DateTime 03/31/2024 157.48 cm 28 kg/m2 96628.63 g Leydi Avalos [facility] 03/31/2024 11:20:03 Date Recorded Body height Body mass index (BMI) Body weight Provider Name and Address Organization Details Last Updated DateTime 05/16/2024 157.48 cm 28 kg/m2 43779.63 g [facility] 05/16/2024 10:06:35 Date Recorded Body height Body mass index (BMI) Body weight Provider Name and Address Organization Details Last Updated DateTime 07/07/2024 157.48 cm 28 kg/m2 59556.63 g EDISON FERGUSON [place] - [facility] 07/07/2024 13:31:06 Social History None recorded. Functional Status None recorded. Mental Status None recorded. Family History Nothing Reported. Medical History No medical history recorded. Gynecological HistoryNo gynecological history recorded. Obstetrics History GPAL:G 0 P 0 0 0 0 Past Encounters Encounter ID Performer Location Encounter Start Date Encounter Closed Date Diagnosis/Indication Diagnosis SNOMED-CT Code Diagnosis ICD10 Code Diagnosis Note [id number] MD Gianfranco Jones 1st [facility] [address] [place] [address] 02/15/2024 10:54:15 03/15/2024 10:13:08 Ankle pain 899454063 M25.572 Sprain of left ankle 848 8976663 0569169 S93.402A Closed fra cture of lateral malleolus of left fibula 0340387750 8868869 S82.65XA [id number] MD Gianfranco Jones 1[facility] [address] [place] [address] 02/18/2024 12:13:19 02/18/2024 13:00:30 Fracture of ankle 92773434 S82.65XA [id number] MD Gianfranco Jones 1[address] [facility] [address] [place] [address] 02/22/2024 10:57:56 02/22/2024 12:11:51 Sprain of left ankle 2890867859 0296228 S93.402A Sprain of lateral ligament of ankle joint 362802107 S93.492D [id number] MD Gianfranco Jones 1[address] [facility] [address] [place] [address] 03/01/2024 11:09:22 03/25/2024 10:43:23 Sprain of left ankle 3989216081 3331860 S93.402A [id number] GUNNAR Chau 1[address] [facility] [address] [place] [address] 03/31/2024 11:04:57 05/05/2024 09:25:42 Sprain of left ankle 4124136677 9669744 S93.402A [id number] Denice Winston PA-C [facility] [address] [place] [address] 05/16/2024 09:04:09 06/01/2024 20:41:20 Ankle pain 902916347 M25.240 [id number] Denice Winston PA-C [facility] [address] [place] [address] 07/07/2024 13:13:01 07/28/2024 11:52:44 Ankle pain 689938213 M25.579 Health Concerns Section Related Observation LastModified by Organization Detai ls LastModified Time None Recorded Concern Status LastModified by Organization Details LastModified Time None Recorded Advance Directives Directive None Recorded Payers Insurance Date Sequence Insurance Name Policy Number Policy Pearson Covered Member ID Pearson Member ID Guarantor Name 01/16/2025 1 [place] [employer] Abril Gonzalez [id number] Abril Gonzalez 04/28/2024 1 AETNA (MEDICARE REPLACEMENT/A DVANTAGE - PPO) [id number] Abril Gonzalez [id number] Abril Gonzalez 01/16/2025 2 [place] [facility] Abril Gonzalez [id number] Abril Gonzalez 04/28/2024 1 MEDICARE B-[place]: [facility] [employer] Abril Gonzalez [id number] Abril Gonzalez 07/05/2024 [employer] - SPECIALITY CLAIMS (MEDICARE DME REGION A) Abril Gonzalez [id number] Abril Gonzalez 05/06/2024 1 AETNA (MEDICARE REPLACEMENT/A DVANTAGE - PPO) [id number] Abril Gonzalez [id number] Abril Gonzalez Notes Date Note Type Note [...] and side effects discussed. Denice Winston PA-C [address] [place] [address] [address], [place], [address], [facility] 03/31/2024 12:44:58 05/16/2024 text/html [...] in 6-8 weeks Denice Winston PA-C [address] [facility] [address], [place], [address], [facility] 05/16/2024 11:15:34 07/07/2024 text/html [...] full duty work. Denice Winston PA-C [address] [facility] [address], [place], [address], [facility] 07/07/2024 14:01:30 OBGyn Episode No OBEpisode recorded.
--- NOTE | 2025-01-26 15:07 | A.OFFPC_ITS ---
Vital Signs 01/26/25 15:08 Height 5 ft 2 in Weight 160 lb BMI 29.3 BP 114/62 Blood Pressure Location Lt brachial Position Sitting Pulse 99 Pulse Source Pulse Oximeter Temp 97.3 F Temp Source Temporal Artery Scan Pulse Oximetry (%) 96 Oxygen Delivery Method Room Air Intake Visit Reasons: f/u walk in 01/19 still not feeling well Grain Distributor Required: No Accompanied by: Self / Same As Patient Allergies topiramate (From TOPAMAX) Allergy (Mild, Verified 01/31/25 23:54) NAUSEA & VOMITING divalproex sodium (From DEPAKOTE) Adverse Reaction (Unknown, Verified 01/31/25 23:54) NAUSEA & VOMITING Medication List - Last Reconciled 01/26/25 by Rudy Barth PA-C acetaminophen 500 mg PO Q6H PRN amitriptyline mg PO PRN pyfxujqmte-myvohdoend-bqx-cod 22-255-61-30 mg 1 cap PO Q6H PRN cyclobenzaprine 10 mg PO BID PRN 30 days diclofenac sodium 75 mg PO BID diphenhydramine HCl (Benadryl) 25 mg PO TID PRN gabapentin 600 mg PO BID 30 days lidocaine 5% (DermacinRx Lidocan) 1 patch topical Q24H multivitamin 1 tab PO DAILY paroxetine HCl 20 mg PO DAILY PRN Tobacco use date assessed: 01/26/25 Dental Screening Dental Screen Date: 01/26/25 HPI f/u walk in 01/19 still not feeling well HPI Details The patient is a 50-year-old female presenting with respiratory issues following visits to the emergency room and walk-in clinic. She was diagnosed with chronic bronchitis and an upper respiratory infection at the emergency room, where she was prescribed a Z-Geovanny, which resolved the green mucus but resulted in white mucus production. Five days later, a chest x-ray at the walk- in clinic revealed fluid in the lungs, which was not present in the initial x- ray, leading to confusion about the progression of her condition. The patient reports no significant chest tightness but experienced back soreness due to coughing. She is scheduled for a lung screening to assess the fluid and check for nodules, with concerns about potential COPD and past smoking history contributing to lung issues. The patient has a history of lung issues, including mucus plugging and atelectasis noted in a CT scan from 2022, attributed to smoking. She completed a 10-day course of prednisone with minimal improvement in her cough, which persists throughout the day. Additionally, the patient is dealing with multiple ovarian cysts, including a 6 cm cyst on the right ovary, leading to a referral for surgical intervention. [facility], [facility] Medical History Nicotine dependence, cigarettes, uncomplicated Ankle pain, left Obesity Restless leg syndrome Migraine Anxiety Fibromyalgia Surgical History H/O rectal polypectomy History of surgery History of hernia repair History of wisdom tooth extraction History of tonsillectomy History of umbilical hernia repair H/O LEEP History of colectomy Family History Father CVD (cardiovascular disease) Myocardial infarction Mother Chronic mental illness Dementia Myocardial infarction, Onset Age: 40 Seizure Sister In good health Son In good health Maternal Aunt Breast CA Paternal Aunt Breast CA Other Mental health disorder Social History Household Members Other:: roommate Housing: Other Housing Other:: lives in alf Do you presently have visiting nurse or other home services: No Unable to assess alcohol history related to: Unknown Alcohol intake: current Alcohol intake frequency: holidays/special occasions only Patient Tobacco Use Status: Current everyday Tobacco user Tobacco use type: Cigarette Years Smoked: (onset 12yo, 1/2-3/4ppd x 38yrs, 25pyh) e-Cigarette/Vaping Use: Never Used Second Hand Smoke Exposure: Yes Substance Use Type: Marijuana Advance Directives Date on File: 09/17/22 service: No Current occupational status: disabled Cognitive needs: No Hearing needs: No Vision needs: No Questionnaire Thrive Questionnaire Date Thrive assessed: 01/26/25 SALOMON-7 AMB Questionnaire SALOMON-7 Date SALOMON - 7 assessed: 01/26/25 Source: Developed by Drs. Ayna Curiel, Brooke Alfaro, Reagan Veronica and colleagues, with an educational cornelia from [employer]. Review of Systems Const Denies headache(s) Eyes Denies loss of vision ENT Denies vertigo, Denies dizziness, Denies headache(s) and Denies sore throat Card Denies chest pain, Denies leg edema and Denies lightheadedness Resp Denies cough, Denies hemoptysis and Denies wheezing GI Denies abdominal pain, Denies melena, Denies constipation, Denies diarrhea and Denies vomiting Denies urinary frequency, Denies dysuria and Denies urinary urgency Musc Denies arthralgias, Denies joint swelling, Denies numbness and Denies tingling Neuro Denies Abnormal speech present, Denies behavioral changes, Denies vertigo, Denies dizziness, Denies headache(s), Denies loss of vision, Denies memory loss, Denies numbness and Denies tingling Psych Denies anxiety, Denies behavioral changes, Denies depression, Denies memory loss and Denies panic attacks Jey/Lymph Denies easy bleeding and Denies easy bruising Aller/Immun Denies wheezing Physical exam (Primary Care) Vital Signs: Last Vital Signs Temp 97.3 F 01/26/25 15:08 Pulse 99 01/26/25 15:08 BP 114/62 01/26/25 15:08 Pulse Ox 96 01/26/25 15:08 Oxygen Delivery Method Room Air 01/26/25 15:08 BMI result Body Mass Index 29.3 Tobacco/Smoking Status: Tobacco use Status Tobacco use date assessed 01/26/25 01/26/25 15:17 Patient Tobacco Use Status Current everyday Tobacco 01/26/25 15:17 Tobacco use type Cigarette 01/26/25 15:17 e-Cigarette/Vaping Use Never Used 01/26/25 15:17 Are you ready to quit: No Tobacco cessation counseling provided: Yes Items discussed: Nicotine replacement Relapse Prevention: discussed the importance of a supportive environment, discussed negative mood or depression after quitting, weight gain after smoking is common and discussed dietary, exercise and/or lifestyle changes Number of minutes spent counselin CPT code: 67932 - 4-10 Minutes Thrive Assessment: Date of Thrive Assessment Date Thrive assessed 01/26/25 01/26/25 15:17 Const General: healthy appearing, no acute distress, alert and awake Nutritional Appearance: well nourished Orientation/consciousness: oriented to person, oriented to place and oriented to time HENMT Ears: TM's normal bilaterally General nose exam: Normal nasal mucous membranes and turbinates present Eyes Conjunctivae: conjunctivae normal Sclerae: sclerae normal Pupils: Equal, round and reactive pupils present Neck Neck: Yes no lymphadenopathy and Yes no JVD Thyroid: Thyroid normal Carotids: no bruits Resp Effort & Inspection: normal respiratory effort and not tachypneic Auscultation: no crackles, no rales, no rhonchi and no wheezes Cardio Rate: regular rate Rhythm: regular rhythm Heart sounds: no murmurs and normal S1 and S2 GI Palpation (GI): Soft to palpation, nontender, no hepatomegaly and no splenomegaly Auscultation: normal bowel sounds Skin General skin exam: no rashes or lesions noted and dry skin Neuro General: oriented to person, oriented to place and oriented to time Cranial nerves: Yes Equal, round and reactive pupils present Speech: No Abnormal speech present Gait exam (Neuro): Normal gait present Motor exam (neuro): no tremor noted Extrem Right upper extremity: full ROM Left upper extremity: full ROM Right lower extremity: full ROM; no edema Left lower extremity: full ROM; no edema Psych Mental Status: mental status grossly normal Speech and movement: Normal speech and movement present Affect: normal affect Attitude: cooperative Thought process: Normal thought process present Coding Level of Care Code Est Pt Level 4 (03362) Diagnoses Bronchitis J40 Pleural effusion J90 Tobacco dependence F17.200 Additional Codes Vital Signs *Quality* - CPT code: 15157 - 4-10 Minutes ([id number]) Assessment & Plan Assessment & Plan (1) Bronchitis: Code(s): J40 - Bronchitis, not specified as acute or chronic Category: Medical Plan: The patient was diagnosed with chronic bronchitis and was initially treated with a Z-Geovanny, which resolved the green mucus but resulted in white mucus production. A follow-up lung screening is scheduled to assess the current status of the bronchitis and to check for any nodules or other complications. A chest x-ray revealed a small left-sided pleural effusion, which was not present in the initial x-ray. The patient completed a course of prednisone with minimal improvement, and a lung screening is planned to further evaluate the effusion. (2) Pleural effusion: Code(s): J90 - Pleural effusion, not elsewhere classified Category: Medical Plan: As above (3) Tobacco dependence: Code(s): F17.200 - Nicotine dependence, unspecified, uncomplicated Category: Medical Plan: Patient does understand she needs to quit smoking though has found it very difficult to do so. She has nicotine replacement available to her and will use when ready.
[2025-01-26 15:08] VITALS: BP 114/62; PULSE 99; TEMP 36.3; O2SAT 96; BMI 29.3
== END 2025-01-26 15:40 | disposition home or self-care (01) ==
LOC: HO.HMCH 15:03
PROVIDERS: PCP Physician Assistant; Visit Provider Physician Assistant
DX: J40 Bronchitis, not specified as acute or chronic (principal); J90 Pleural effusion, not elsewhere classified; F17.200 Nicotine dependence, unspecified, uncomplicated

== ENCOUNTER → 2025-01-26 15:02 | Outpatient (BNVA) | payer MEDICARE, MEDICAID, SELFPAY | PROVIDERS: PCP Physician Assistant; Visit Provider Physician Assistant | DX: J40 Bronchitis, not specified as acute or chronic (principal); J90 Pleural effusion, not elsewhere classified; F17.200 Nicotine dependence, unspecified, uncomplicated; Z71.6 Tobacco abuse counseling | CPT/HCPCS: 99212 ==

== ENCOUNTER 2025-01-31 02:26 | Emergency (ER) | payer MEDICARE, SELFPAY ==
[2025-01-31 02:38] VITALS: BP 133/56; PULSE 78; RESP 18; TEMP 36.4; O2SAT 100; BMI 29.3
[2025-01-31 02:43] VITALS: BP 133/56; PULSE 77; RESP 18; TEMP 36.4; O2SAT 100
[2025-01-31 06:21] VITALS: BP 115/54; PULSE 76; RESP 14; TEMP 36.7; O2SAT 99
== END 2025-01-31 06:54 | disposition left against medical advice (07) ==
PROVIDERS: Emergency Provider Emergency Medicine
DX: M54.2 Cervicalgia (principal); Z53.21 Procedure and treatment not carried out due to patient leaving prior to being seen by health care provider
CPT/HCPCS: 99281; 99284

== ENCOUNTER 2025-01-31 23:45 | Emergency (ER) | payer MEDICARE, SELFPAY ==
[2025-01-31 23:51] VITALS: BP 133/86; PULSE 78; RESP 17; TEMP 36.8; O2SAT 99; BMI 29.4
--- OUTSIDE RECORDS SUMMARY | 2025-02-01 01:36 | XMS_ITS | Patient Health Record ---
Author Organization [facility] Address [address] [place] [address] Care Team Providers Care Senior Microsoft Net Developer Name Role Phone SHANITA JONES Primary [...] Risk Notes Problem Lumbosacral spondylosis without myelopathy ([id number]) Spondylosis without myelopathy or radiculopathy, lumbar region (M47.816) Active confirmed Plan Of Treatment No Information Insurance Providers Payer Name Payer Address Payer Phone Subscriber Number Group Number Insured Name Patient Relationship to Insured Coverage Start Date Coverage End Date Medicare B [facility] [address] [place] [id number] [id number] RAMIREZ RILEYE Self - patient is the insured [employer] of [place] [address] [place] [address] [id number] RAMIREZ RILEYE Self - patient is the [...]
--- NOTE | 2025-02-01 03:08 | ED.GENADULT ---
HPI - General Adult General Chief complaint: General Medical Stated complaint: general medicine Time Seen by Provider: 02/01/25 02:17 Source: patient Mode of arrival: ambulatory Limitations: no limitations History of Present Illness ED Provider: Joni LUCERO HPI narrative: The patient is a 50-year-old female with history of fibromyalgia and spondylosis of the lumbar region with lumbar radiculopathy, presenting to the ED for evaluation of ongoing diffuse back pain radiating to the right shoulder and into the bilateral lower legs. The patient reports pain is similar to her previous chronic pain but is more severe. The patient reports she was previously diagnosed with lumbar disc disease which is currently being treated by her PCP with gabapentin, Flexeril, and diclofenac. The patient is also scheduled for a referral with [facility] in March, reports she was previously managed by [facility]. The patient reports over the last few days her symptoms have increased, denies associated fever/chills, nausea, vomiting, bowel/bladder incontinence, urinary retention, saddle paresthesias, or lower extremity weakness. The patient denies any recent blunt trauma however does report she had declined through a camper window 3-4 days ago to unlock the camper which exacerbated her pain. The patient presented to the ED earlier today for evaluation but left without being seen due to wait time. Patient returns reporting symptoms have worsened. Related Data Home Medications ?Medication ?Instructions ?Recorded ?Confirmed butalbital 50 mg-acetaminophen 325 1 cap PO Q6H PRN Headaches 02/26/23 01/26/25 mg-caffeine 40 mg-codeine 30 mg cap multivitamin 1 tab PO DAILY 04/19/24 01/26/25 diclofenac sodium 75 mg 75 mg PO BID 06/28/24 01/26/25 tablet,delayed release paroxetine HCl 20 mg tablet 20 mg PO DAILY PRN 10/25/24 01/26/25 amitriptyline 25 mg tablet mg PO PRN 01/19/25 01/26/25 Previous Rx's ?Medication ?Instructions ?Recorded acetaminophen 500 mg tablet 500 mg PO Q6H PRN fever #60 tabs 04/23/23 lidocaine 5 % topical patch 1 patch topical Q24H #30 ea 11/09/24 (DermacinRx Lidocan) gabapentin 600 mg tablet 600 mg PO BID 30 days #60 tabs 11/23/24 cyclobenzaprine 10 mg tablet 10 mg PO BID PRN muscle spasm 30 12/21/24 days #60 tabs diphenhydramine HCl 25 mg capsule 25 mg PO TID PRN itching #20 caps 12/25/24 (Benadryl) prednisone 20 mg tablet 60 mg (3 x 20 mg) PO DAILY 5 days 02/01/25 #15 tabs tramadol 100 mg tablet 100 mg PO TID PRN pain #10 tabs 02/01/25 Allergies Allergy/AdvReac Type Severity Reaction Status Date / Time topiramate (From TOPAMAX) Allergy Mild NAUSEA & Verified 01/31/25 23:54 VOMITING divalproex sodium (From AdvReac Unknown NAUSEA & Verified 01/31/25 23:54 DEPAKOTE) VOMITING Review of Systems Review of Systems: Yes all other systems are reviewed and are negative [facility] Past Medical History Medical History (Updated 02/01/25 @ 03:20 by Joni Montgomery PA-C) Nicotine dependence, cigarettes, uncomplicated Wrist pain, left Ankle pain, left Obesity Restless leg syndrome Migraine Anxiety Fibromyalgia Surgical History H/O rectal polypectomy History of surgery History of hernia repair History of wisdom tooth extraction History of tonsillectomy History of umbilical hernia repair H/O LEEP History of colectomy Family History Family History Father CVD (cardiovascular disease) Myocardial infarction Mother Chronic mental illness Dementia Myocardial infarction, Onset Age: 40 Seizure Sister In good health Son In good health Maternal Aunt Breast CA Paternal Aunt Breast CA Other Mental health disorder Social History Social History Household Members Other:: roommate Housing: Other Housing Other:: lives in skilled nursing Do you presently have visiting nurse or other home services: No Unable to assess alcohol history related to: Unknown Alcohol intake: current Alcohol intake frequency: holidays/special occasions only Patient Tobacco Use Status: Current everyday Tobacco user Tobacco use type: Cigarette Cigarette Packs Per Day: 1 Cigarettes Per Day: 20.0 Years Smoked: 15 e-Cigarette/Vaping Use: Never Used Second Hand Smoke Exposure: Yes Substance Use Type: Marijuana Advance Directives: Yes Advance Directives on File: Yes Advance Directives Date on File: 09/17/22 Do you have a plan to hurt others: No Plan service: No Current occupational status: disabled Cognitive needs: No Hearing needs: No Vision needs: No Physical Exam ED Vital Signs: Vital Signs - 24 hr 01/31/25 23:51 Temperature 98.3 F Pulse Rate 78 Respiratory Rate 17 Blood Pressure 133/86 Pulse Oximetry 99 Oxygen Delivery Method Room Air BMI result Body Mass Index 29.4 CONSTITUTIONAL: The patient appears non-toxic, well nourished and in no acute distress, patient was sleeping comfortably upon initiation of interview/exam. Vital signs as documented. HEAD: Atraumatic, normocephalic. EYES: EOMs grossly intact, pupils equal, conjunctiva clear, no exudate. ENT: Nares patent, no discharge. Airway patent, no audible stridor, visible mucosa is pink and moist without noted lesions. NECK: Trachea is midline, no obvious masses or gross abnormalities. CHEST: Symmetric movement, normal appearance. LUNGS: LS present and CTAB, no w/r/r. Non-labored work of breathing. CARDIAC: Regular Rhythm, S1/S2 appreciated, no murmurs, rubs or gallops. ABDOMEN: Abdomen soft and non-tender x4 quadrants, no palpable masses or organomegaly. : Deferred. BACK: No bruising, ecchymosis, no midline spinous tenderness, no crepitus, no step-off or other deformity. Patient reports equal tenderness to palpation diffusely throughout the bilateral thoracic, lumbar and sacral regions, patient does not localize tenderness. EXTREMITIES: Normal tone, moves all extremities spontaneously without reported pain. No obvious acute injury or deformity noted. NEURO: Alert and oriented x3, CN II-XII appear grossly intact. Cerebellar Functioning grossly intact. No obvious sensory or motor deficits. Speech clear and appropriate. PSYCH: normal affect, appropriate eye contact, fluid speech, with appropriate response to questioning. No reported suicidality or homicidality. SKIN: Warm, dry, color appropriate, normal turgor. No rashes noted. Medical Decision Making Medical Decision Making MDM Narrative: 3:14 AM 02/01/2025 (Yimi LUCERO): The patient is a 50-year-old female presenting to the ED for evaluation of atraumatic worsening chronic low back pain with radiation into the right shoulder and bilateral lower extremities. Patient has no recent trauma, no symptoms of cauda equina, is afebrile in the ED, no indication for imaging. Patient reports pain/tenderness throughout her entire back without localization on exam, of note patient was sleeping comfortably upon initiation of interview, patient's complaints appear out of proportion to exam. The patient is currently treated with diclofenac, Flexeril, and gabapentin. We will treat additionally for suspected lumbar radiculopathy with lidocaine patch, Tylenol, steroid burst, and Ultram. We will reassess for improvement and plan for discharge for follow up with current outpatient care plan. Admission/Observation Consideration of admission/observation: Escalation of care including admission/observation considered External Record Review External record reviewed: Outpatient record Discharge Plan Discharge Clinical Impression: Lumbar radiculopathy Chronic bilateral low back pain Qualifiers: Sciatica presence: with sciatica Sciatica laterality: bilateral sciatica Qualified Code(s): M54.42 - Lumbago with sciatica, left side Patient Disposition: Home, Self-Care Instructions: Chronic Pain (ED), Lumbar Radiculopathy (ED), Lower Back Exercises (ED) Additional Instructions: Thank you for choosing [facility] for your care today. At this time there is no evidence of an acute process requiring admission to the hospital or continued ED observation, and it is safe to discharge you home. Your symptoms today appear to be an increase in your chronic low back pain symptoms for which you have been previously managed by the pain Center and are currently awaiting referral to orthopedic/spine specialists. Seeing as your exam is reassuring and you have had no recent trauma or neurologic deficits concerning for spinal cord compression, there is no indication for imaging at this time. We are treating you with Tylenol, lidocaine, prednisone, and Ultram in addition to your current outpatient pain management. Please take prednisone as prescribed for the next 5 days until finished. You should take Tylenol 1000mg every 6 hours as needed for additional pain. Please rest the injured area, and apply ice for 20 minutes every hour. As a part of your care plan, you have also been prescribed an opiate based pain medication called Ultram. Please take this medication only for severe pain that is not relieved by diclofenac and/or Tylenol. Opiate based medications have a high risk of unintentional addiction and abuse. Take this medication only as directed and only if absolutely necessary. This medicine can make you drowsy, you are not allowed to drive, operate heavy machinery, or be the sole care provider for children while taking this medication. We have treated you with a lidocaine patch, if you find this provides you significant relief additional patches can be purchased at any local pharmacy without a prescription. Please follow up with your primary care physician for re-evaluation, follow up on your established referrals, additional management of your symptoms, and continued preventative care. If you do not have a primary care physician, please call the [facility] at [phone] to establish a new primary care physician. While waiting to establish your new primary care physician, you can call our Walk-in Care Clinic at [phone] for non-emergency needs. Please return to the emergency department if you develop a severe or sudden change in your symptoms, a fever over 100.4 that does not improve with Tylenol or Ibuprofen, recurrent vomiting, or any other new or worsening symptoms or concerns. Prescriptions: New prednisone 20 mg tablet 60 mg PO DAILY 5 Days Qty: 15 0RF tramadol 100 mg tablet 100 mg PO TID PRN (Reason: pain) Qty: 10 0RF No Action lidocaine [DermacinRx Lidocan] 5 % adhesive patch,medicated 1 patch topical Q24H Qty: 30 0RF Rx Instructions: leave on most painful area for up to 12 hrs gabapentin 600 mg tablet 600 mg PO BID 30 Days Qty: 60 1RF cyclobenzaprine 10 mg tablet 10 mg PO BID PRN (Reason: muscle spasm) 30 Days Qty: 60 3RF multivitamin Tablet 1 tab PO DAILY diphenhydramine HCl [Benadryl] 25 mg capsule 25 mg PO TID PRN (Reason: itching) Qty: 20 0RF acetaminophen 500 mg tablet 500 mg PO Q6H PRN (Reason: fever) Qty: 60 0RF Rx Instructions: Take 1 tablet every 6 hours as needed for pain/fever. Do not take in combination with Fioricet. dxrzgkmecp-qbzuegvhpk-ojh-cod [id number] mg capsule 1 cap PO Q6H PRN (Reason: Headaches) paroxetine HCl 20 mg tablet 20 mg PO DAILY PRN diclofenac sodium 75 mg tablet,delayed release (DR/EC) 75 mg PO BID amitriptyline 25 mg tablet PO PRN Referrals: Rudy Barth PA-C [Primary Care Provider, Internal Medicine] Clinical Impression: Lumbar radiculopathy; Chronic bilateral low back pain Print Language: Fijian
[2025-02-01 03:23] VITALS: BP 110/53; PULSE 79; RESP 16; TEMP 36.6; O2SAT 97
[2025-02-01] MEDS: Lidocaine 4 % Patch ADH..PATCH 1 PATCH TRANSDERMA (03:28)
[2025-02-01 06:35] VITALS: BP 110/53; PULSE 79; RESP 16; TEMP 36.6; O2SAT 97
== END 2025-02-01 06:35 | disposition home or self-care (01) ==
PROVIDERS: Emergency Provider Emergency Medicine; PCP Physician Assistant
DX: M54.42 Lumbago with sciatica, left side (principal); M54.16 Radiculopathy, lumbar region; Z79.899 Other long term (current) drug therapy
CPT/HCPCS: 99283; 99284

== ENCOUNTER 2025-02-03 11:04 | Outpatient (AMB) | payer MEDICARE, MEDICAID, SELFPAY ==
--- NOTE | 2025-02-03 07:42 | A.OFFVIS_ITS ---
Intake Visit Reasons: Current Smoker Allergies topiramate (From TOPAMAX) Allergy (Mild, Verified 01/31/25 23:54) NAUSEA & VOMITING divalproex sodium (From DEPAKOTE) Adverse Reaction (Unknown, Verified 01/31/25 23:54) NAUSEA & VOMITING HPI HPI Current Smoker: Details: Initial visit for this 50yo smoker with a 25PYH. Patient started smoking at age 12 for 38 years at 1/2-3/4ppd. At some points was closer to 1ppd. . Rare marijuana use. Denies second hand smoke exposure. Denies exposure to chemicals or substances like asbestos. . Denies known family history of lung cancer. Denies personal history of cancers. . Denies chest CT in last year. She had recent Chest Xrays done for bronchitis 01/15/25 & 01/19/25 Did Jason in December and currently on prednisone. The most recent CXR showed small left sided pleural effusion vs pleural th ickening . Denies recent travel outside the [place]. Denies recent respiratory illness or recent hospitalization for respiratory issues. History of testing positive for COVID. Admits receiving COVID Vaccine x 2. . Denies fever, chills, new/worsening cough, hemoptysis, hoarseness or dysphagia. Denies significant chest pain, significant dyspnea or unintentional weight loss. Patient Lung Cancer Screening Questionnaire reviewed with patient by provider. . Shared Decision Making Completed. Patient meets criteria. Discussed in detail with patient, the risk vs benefit of LDCT screening. Patient consents to proceed with scan. Discussed smoking cessation. [facility] Medical History (Updated 02/03/25 @ 11:23 by Leilani Hahn PA-C) Nicotine dependence, cigarettes, uncomplicated Ankle pain, left Obesity Restless leg syndrome Migraine Anxiety Fibromyalgia Surgical History H/O rectal polypectomy History of surgery History of hernia repair History of wisdom tooth extraction History of tonsillectomy History of umbilical hernia repair H/O LEEP History of colectomy Family History Father CVD (cardiovascular disease) Myocardial infarction Mother Chronic mental illness Dementia Myocardial infarction, Onset Age: 40 Seizure Sister In good health Son In good health Maternal Aunt Breast CA Paternal Aunt Breast CA Other Mental health disorder Social History (Updated 02/03/25 @ 11:23 by Leilani Hahn PA-C) Household Members Other:: roommate Housing: Other Housing Other:: lives in assisted Do you presently have visiting nurse or other home services: No Unable to assess alcohol history related to: Unknown Alcohol intake: current Alcohol intake frequency: holidays/special occasions only Patient Tobacco Use Status: Current everyday Tobacco user Tobacco use type: Cigarette Years Smoked: (onset 12yo, 1/2-3/4ppd x 38yrs, 25pyh) e-Cigarette/Vaping Use: Never Used Second Hand Smoke Exposure: Yes Substance Use Type: Marijuana Advance Directives Date on File: 09/17/22 service: No Current occupational status: disabled Cognitive needs: No Hearing needs: No Vision needs: No Assessment & Plan Assessment & Plan (1) Nicotine dependence, cigarettes, uncomplicated: Comment: (onset 12yo, 1/2-3/4ppd x 38yrs, 25pyh) Code(s): F17.210 - Nicotine dependence, cigarettes, uncomplicated Category: Medical Plan: - SDM visit completed today in office. - Patient meets criteria for LDCT for lung cancer screening purposes and is asym ptomatic. - Smoking cessation counseling offered. Patients can always call [phone]. - Will arrange for a LDCT scan of the chest for screening purposes at [facility]. - Risks, benefits, and alternatives were discussed in detail and the patient agrees to proceed. - Risks discussed include but are not limited to: radiation exposure, anxiety during testing and while awaiting results, false negatives, false positives and possibility of additional intervention such as further imaging or surgical procedures for benign disease. - Benefits are obviously detection of lung cancer at an early stage which can lead to improved outcomes. - Discussed the importance of screening program compliance with adherence to yearly LDCT scan as scheduled - or sooner interval scans for personalized screening regimen. - Discussed follow up plan. Our office will send a letter discussing results and if needed set up phone call and office visit based on CT findings. - Patient educated on results categorization and the management decisions for suspicious findings potentially found on the screening LDCT scan. Any patient with a Lung RADS score of 3 or 4 will be reviewed by a multidisciplinary team at [facility] to form a plan of action in regards to scan findings. - If further work up is warranted for a suspicious lung finding this will be followed by the Lung Cancer Screening program in conjunction with the Thoracic Surgery Department at [facility]. - A copy of the office note and LDCT will be sent to the patient's PCP - as well as documentation on any associated further plans of care. - Incidental findings on LDCT are the PCP's responsibility. These findings are indicated with an S finding on the LDCT Assessment. A note discussing the findings will be sent to the PCP who is then responsible for further management. - All questions answered.? Coding Level of Care Code Lung Cancer Screening G0296 Diagnoses Nicotine dependence, cigarettes, uncomplicated F17.210
--- OUTSIDE RECORDS SUMMARY | 2025-02-03 11:38 | XMS_ITS | Patient Health Record ---
Author Organization [facility] Address [address] [place] [address] Care Team Providers Care Cpr Ambulance Driver Name Role Phone SHANITA JONES Primary Care [...] Start Date Coverage End Date [place] B [place] [address] [place] [phone] [id number] ROXANNA RILEY Self - patient is the insured [employer] of [facility] [address] [place] [phone] [id number] ROXANNA RILEY Self - patient is the [...]
--- OUTSIDE RECORDS SUMMARY | 2025-02-03 11:38 | XMS_ITS | Data Portability ---
Author Organization [facility], [facility] Address [address] [place] [address] Care Team Providers Care Certified Social Workers In Health Care Name Role Phone SHANITA MARTIN Primary Care Provider [phone] Assessment Encounter Date Assessment Date Assessment LastModified by Organization Details LastModified Time 03/01/2024 03/01/2024 Telemedicine Telephone Encounter Patient Location: Home Physician Location: [facility] Office [place], [place] Time spent with patient: 12 mins [...] inversion sprain. She currently lives in a fci. She was seen at [facility] where x-rays were negative. She [...] the same service when rendered via a dnlg-je-orqa interaction. I discussed with the patient the [...] - left ankle rehab rom, stretch, strengthe frenando 2023 024 [email or web address] Not available 03/31/2024 15:05:00 Procedures None recorded. Surgeries None recorded. Imaging None recorded. Medication Orders meloxicam 15 mg tablet [address] [facility] [id number], [address] [place], [place], [id number], 05/16/2024 12:11:54 meloxicam 15 mg tablet [address] [facility] [id number], [address] [place], [place], [id number], 03/31/2024 15:05:00 Patient TargetsNo targets recorded. Patient [...] a4ajBk vP9nXo QUaueC m3YtLR FvZlgJ JJ8mAn HZtai3 6r0234 AC0Koa HyNWaD eUC8mr 84%3D INTERFACE [facility] [address] [facility] [address], [place], [address], 02/15/2024 11:08:00 02/15/20 24 02/15/2024 XR, foot, 2 view [email or web address] ?Encry pted=s hAaTro YD8dLq bEUv6g %2BXZw aYqtaq 0bqfl% 2Fg9IQ a4ajBk vP9nXo QUaueC m3YtLR FvZl J8Laveen HZtai3 8i0806 AC0Koa HyNWaD eUC8mr 84%3D INTERFACE [facility] [address], [place], [address], 02/15/2024 11:08:02 02/15/20 24 02/15/2024 XR, ankle , 3 or more view [email or web address] ?Encry pted=s hAaTro YD8dLq bEUv6g %2BXZw aYqtaq 0bqfl% 2Fg9IQ a4ajBk vP9nXo QUaueC m3YtLR FvZl J8Laveen HZtai3 8d2548 AC0Koa HyNWaP eUC8mr 84%3D INTERFACE [facility] [address], [place], [address], 02/15/2024 11:10:08 02/15/20 24 02/15/2024 XR, ankle , 3 or more view [email or web address] ?Encry pted=s hAaTro YD8dLq bEUv6g %2BXZw aYqtaq 0bqfl% 2Fg9IQ a4ajBk vP9nXo QUaueC m3YtLR Zl[address] HZtai3 6y7041 AC0Koa HyNWaP eUC8mr 84%3D INTERFACE [facility] [address], [place], [address], 02/15/2024 11:10:10 02/16/[address], ankle + foot, w/o contr ast No observ ation record ed. [email or web address] Not Available 2023 15:11:58 Result Notes None recorded. Procedures Surgical History Date Name Laterality Status Provider Name and Address Organization Details Recorded Time 4 Cast Removal completed Mary Pederson [facility] 02/22/2024 12:07:49 4 Cast_Short Leg_11+ completed JOHN GARZA [facility] 02/18/2024 12:59:56 4 Cast Removal completed JOHN [facility] 02/18/2024 12:57:56 Imaging Results None recorded. Procedure Notes None recorded. Medical Equipment None Reported. Allergies Allergen ID Allergen Name Allergen Category Reaction Reaction Severity Criticality Documentation Date Start Date Code Code System Note Provider Name and Address Organization Details Recorded Time 749172 Topamax medicatio n Not available Not available Not available 02/15/2024 75820 3 [facility] 4 11:55:06 276037 Depakote medicatio n Not available Not available Not available 02/15/2024 17280 9 [facility] 4 11:55:10 Medications Name Sig [...] Updated DateTime 03/31/2024 157.48 cm 28 kg/m2 98566.63 g Leydi Avalos [facility] 03/31/2024 11:20:03 Date Recorded Body height Body mass index (BMI) Body weight Provider Name and Address Organization Details Last Updated DateTime 05/16/2024 157.48 cm 28 kg/m2 63583.63 g [place] [facility] 05/16/2024 10:06:35 Date Recorded Body height Body mass index (BMI) Body weight Provider Name and Address Organization Details Last Updated DateTime 07/07/2024 157.48 cm 28 kg/m2 74466.63 g EDISON FERGUSON [place] [facility] [place] [facility] 07/07/2024 13:31:06 Social History None recorded. Functional Status None recorded. Mental Status None recorded. Family History Nothing Reported. Medical History No medical history recorded. Gynecological HistoryNo gynecological history recorded. Obstetrics History GPAL:G 0 P 0 0 0 0 Past Encounters Encounter ID Performer Location Encounter Start Date Encounter Closed Date Diagnosis/Indication Diagnosis SNOMED-CT Code Diagnosis ICD10 Code Diagnosis Note [id number] MD [facility] [address] [place] [address] 02/15/2024 10:54:15 03/15/2024 10:13:08 Ankle pain 045687234 M25.572 Sprain of left ankle 254 2565923 3913814 S93.402A Closed fra cture of lateral malleolus of left fibula 3263660596 3879332 S82.65XA [id number] MD [facility] Jones [facility] [address] [place] [address] 02/18/2024 12:13:19 02/18/2024 13:00:30 Fracture of ankle 01412122 S82.65XA [id number] MD Gianfranco Jones [facility] [address] [place] [address] 02/22/2024 10:57:56 02/22/2024 12:11:51 Sprain of left ankle 3170165386 9183479 S93.402A Sprain of lateral ligament of ankle joint 849037280 S93.492D [id number] MD Gianfranco Jones [facility] [address] [place] [address] 03/01/2024 11:09:22 03/25/2024 10:43:23 Sprain of left ankle 6727438683 2816728 S93.402A [id number] GUNNAR Chau [facility] [address] [place] [address] 03/31/2024 11:04:57 05/05/2024 09:25:42 Sprain of left ankle 2000577673 8808972 S93.402A [id number] Denice Winston PA-C [facility] [address] [place] [address] 05/16/2024 09:04:09 06/01/2024 20:41:20 Ankle pain 226275467 M25.482 [id number] Denice Winston PA-C [facility] [address] [place] [address] 07/07/2024 13:13:01 07/28/2024 11:52:44 Ankle pain 980605710 M25.579 Health Concerns Section Related Observation LastModified by Organization Detai ls LastModified Time None Recorded Concern Status LastModified by Organization Details LastModified Time None Recorded Advance Directives Directive None Recorded Payers Insurance Date Sequence Insurance Name Policy Number Policy Pearson Covered Member ID Pearson Member ID Guarantor Name 01/16/2025 1 [place]: [employer] Abril Gonzalez [id number] Abril Gonzalez 04/28/2024 1 [employer] (MEDICARE REPLACEMENT/A DVANTAGE - PPO) [id number] Abril Gonzalez [id number] Abril Gonzalez 01/16/2025 2 MEDICAID-[place]: [facility] Abril Gonzalez [id number] Abril Gonzalez 04/28/2024 1 MEDICARE B-[place]: [facility] [employer] SERVICES Abril Gonzalez [id number] Abril Gonzalez 07/05/2024 [employer] - SPECIALITY CLAIMS (MEDICARE DME REGION A) Abril Gonzalez [id number] Abril Gonzalez 05/06/2024 1 [employer] (MEDICARE REPLACEMENT/A DVANTAGE - PPO) [id number] Abril Gonzalez [id number] Abril Gonzalez Notes Date Note Type Note [...] and side effects discussed. Denice Winston PA-C [address] [place] [address] [address], [place], [address], [facility] 03/31/2024 12:44:58 05/16/2024 text/html [...] brace as needed. She lives at a fci and is having difficulty getting transportation. She [...] in 6-8 weeks Denice Winston PA-C [address] [facility] [address], [place], [address], [facility] 05/16/2024 11:15:34 07/07/2024 text/html [...] a bad sprain. She lives at a fci and is having difficulty getting transportation. She [...] full duty work. Denice Winston PA-C [address] [facility] [address], [place], [address], [facility] 07/07/2024 14:01:30 OBGyn Episode No OBEpisode recorded.
== END 2025-02-03 11:13 | disposition home or self-care (01) ==
LOC: HO.HPS 11:04
PROVIDERS: PCP Physician Assistant; Referring Provider Physician Assistant; Visit Provider Physician Assistant Medical
DX: F17.210 Nicotine dependence, cigarettes, uncomplicated (principal)
CPT/HCPCS: G0296

== ENCOUNTER 2025-02-03 11:24 | Outpatient (REF) | payer MEDICARE, MEDICAID, SELFPAY ==
--- NOTE | ~2025-02-03 | CT_ITS ---
EXAMINATION: CT LUNG SCREENING HISTORY: F17.210 - Nicotine dependence, cigarettes, uncomplicated TECHNIQUE: Low dose axial images were obtained from the sternal notch to upper abdomen without IV contrast per standard departmental protocol. Sagittal and coronal reformatted images were also obtained and reviewed. One or more of the following techniques was used for dose reduction: Automated exposure control, adjustment of the mA and/or kV according to patient size, use of iterative reconstruction technique. DLP: 48 mGy-cm COMPARISON: Comparison is made with the prior examination dated 11/24/2022. FINDINGS: Lung nodules: There is a cluster of nodules in the left lower lobe measuring 7 x 3 mm (series 4, image 94), 8 x 5 mm (series 4, image 96), and 10 x 4 mm (series 4, image 101). No additional new nodules are identified. There is linear scarring in the right lower lobe. Emphysema: mild Coronary Calcification: none Aortic Arch Calcification: mild Potentially Significant Incidentals : none Additional Chest Findings: There is no pleural or pericardial effusion. No mediastinal or axillary lymphadenopathy is identified. Visualized upper abdomen: The visualized portions of the liver, spleen, and adrenals have an unremarkable unenhanced appearance. CT/CT lung screening IMPRESSION: Cluster of new nodules in the left lower lobe measuring up to 10 x 4 mm (average diameter 7 mm). LUNG-RADS ASSESSMENT: Lung-RADS 4A: Suspicious MANAGEMENT: 3 month LDCT or PET/CT scan Category S: N/A Findings were communicated to Leilani Hahn on 02/03/2025 at 11:56 AM and were acknowledged at 11:58 AM. Electronically signed by: Ayan Ackerman MD 02/03/2025 12:01 PM EDT
== END 2025-02-03 11:25 | disposition home or self-care (01) ==
LOC: HO.CT 11:24
PROVIDERS: PCP Physician Assistant; Visit Provider Physician Assistant Medical
DX: Z12.2 Encounter for screening for malignant neoplasm of respiratory organs (principal); F17.210 Nicotine dependence, cigarettes, uncomplicated
CPT/HCPCS: 71271; G0296

== ENCOUNTER → 2025-02-03 11:25 | Outpatient (BNV) | payer MEDICARE, SELFPAY | PROVIDERS: PCP Physician Assistant; Visit Provider Radiology Diagnostic Radiology | DX: F17.210 Nicotine dependence, cigarettes, uncomplicated (principal) | CPT/HCPCS: 71271 ==

== ENCOUNTER 2025-02-12 23:16 | Emergency (ER) | payer MEDICARE, MEDICAID, SELFPAY ==
--- NOTE | ~2025-02-12 | XR_ITS ---
CLINICAL HISTORY: pain 3 view, pelvis and right hip Comparison: None provided Findings: No acute fracture or dislocation. No significant arthritic change. The soft tissues are unremarkable. IMPRESSION: No acute findings. This document has been electronically signed by: Octavio Sheikh MD, PHD on 02/13/2025 02:21:24
--- NOTE | ~2025-02-12 | XR_ITS ---
CLINICAL HISTORY: pain 3 views lumbar spine Comparison: None provided Findings: There is straightening of the normal lumbar lordosis. No acute fractures or dislocation. Degenerative disc height loss with endplate sclerosis is present at L4-L5. IMPRESSION: No acute findings. This document has been electronically signed by: Octavio Sheikh MD, PHD on 02/13/2025 02:21:55
[2025-02-12 23:30] VITALS: BP 136/50; PULSE 88; RESP 16; TEMP 36.3; O2SAT 96; BMI 30.6
[2025-02-12 23:51] LABS: MANUAL DIFF FLAG NO
[2025-02-12 23:52] LABS: Hematocrit 39.2 % (37.0-47.0); Hemoglobin 13.7 g/dl (12.0-16.0); Imm Gran Abs Auto 0.04 X10*3/uL (0.00-0.03); Imm Gran Pct Auto 0.4 % (0.0-0.4); Lymphocytes Absolute Auto 1.2 X10*3/uL (1.2-4.9); Mean Corpuscular HGB Conc 34.9 g/dl (31.0-35.0); Mean Corpuscular Hemoglobin 32.3 pg (27.0-33.0); Mean Corpuscular Volume 92.5 fL (80.0-98.0); NRBC Abs Auto 0.000 X10*3/uL (0.0-0.012); NRBC Pct Auto 0.0 /100WBC (0.0-0.2); Platelet Count 295 X10*3/uL (160-400); Red Blood Count 4.24 X10*6/uL (4.20-5.50); White Blood Count 10.3 X10*3/uL (4.8-10.8)
[2025-02-13 00:04] LABS: Anion Gap 13 (12-20); Blood Urea Nitrogen 7 mg/dL (9-16); Calcium 8.9 mg/dL (8.4-10.2); Carbon Dioxide 23 mmol/L (22-29); Chloride 108 mmol/L (96-108); Creatinine Clr Calc Pharmacy 111.4; Estimated Glomerular Filt Rate > 60; Potassium 3.8 mmol/L (3.3-5.1); Sodium 140 mmol/L (135-145)
--- OUTSIDE RECORDS SUMMARY | 2025-02-13 00:20 | XMS_ITS | Data Portability ---
Author Organization [facility], [facility] [place] Address [address] [place] [address] Care Team Providers Care Coding Educator Name Role Phone SHANITA MARTIN Primary Care Provider Assessment Encounter Date Assessment Date Assessment LastModified by Organization Details LastModified Time 03/01/2024 03/01/2024 Telemedicine Telephone Encounter Patient Location: Home Physician Location: [facility] Office [place], [place] Time spent with patient: 12 mins [...] in a usp. She was seen at [facility] where x-rays were negative. She later saw [...] the same service when rendered via a bcce-da-uzoz interaction. I discussed with the patient the [...] Orders meloxicam 15 mg tablet [address] [id number], [address] [place], [place], [id number], 05/16/2024 12:11:54 meloxicam 15 mg tablet [address] [facility] [id number], [address] [place], [place], [id number], 03/31/2024 15:05:00 Patient TargetsNo targets recorded. Patient [...] a4ajBk vP9nXo QUaueC m3YtLR FvZlgJ JJ8mAn HZtai3 5n8521 AC0Koa HyNWaD eUC8mr 84%3D INTERFACE [facility] [address] [facility] [address], [place], [address], 02/15/2024 11:08:00 02/15/20 24 02/15/2024 XR, foot, 2 view [email or web address] ?Encry pted=s hAaTro YD8dLq bEUv6g %2BXZw aYqtaq 0bqfl% 2Fg9IQ a4ajBk vP9nXo QUaueC m3YtLR FvZl [place] HZtai3 0i8009 AC0Koa HyNWaD eUC8mr 84%3D INTERFACE [facility] [address], [place], [address], 02/15/2024 11:08:02 02/15/20 24 02/15/2024 XR, ankle , 3 or more view [email or web address] ?Encry pted=s hAaTro YD8dLq bEUv6g %2BXZw aYqtaq 0bqfl% 2Fg9IQ a4ajBk vP9nXo QUaueC m3YtLR FvZl J8[place] HZtai3 4f5964 AC0Koa HyNWaP eUC8mr 84%3D INTERFACE [facility] [address], [place], [address], 02/15/2024 11:10:08 02/15/20 24 02/15/2024 XR, ankle , 3 or more view [email or web address] ?Encry pted=s hAaTro YD8dLq bEUv6g %2BXZw aYqtaq 0bqfl% 2Fg9IQ a4ajBk vP9nXo QUaueC m3YtLR [address] HZtai3 2m6275 AC0Koa HyNWaP eUC8mr 84%3D INTERFACE [facility] [address], [place], [address], 02/15/2024 11:10:10 02/16/[address], ankle + foot, w/o contr ast No observ ation record ed. [email or web address] Not Available 2023 15:11:58 Result Notes None recorded. Procedures Surgical History Date Name Laterality Status Provider Name and Address Organization Details Recorded Time 4 Cast Removal completed Mary Pederson [facility] 02/22/2024 12:07:49 4 Cast_Short Leg_11+ completed JOHN GARZA [facility] 02/18/2024 12:59:56 4 Cast Removal completed JOHN [facility] 02/18/2024 12:57:56 Imaging Results None recorded. Procedure Notes None recorded. Medical Equipment None Reported. Allergies Allergen ID Allergen Name Allergen Category Reaction Reaction Severity Criticality Documentation Date Start Date Code Code System Note Provider Name and Address Organization Details Recorded Time 831462 Topamax medicatio n Not available Not available Not available 02/15/2024 78348 3 RxNorm [facility] 4 11:55:06 419397 Depakote medicatio n Not available Not available Not available 02/15/2024 77326 9 RxNorm [facility] 4 11:55:10 Medications Name Sig [...] Updated DateTime 03/31/2024 157.48 cm 28 kg/m2 17871.63 g Leydi Avalos [facility] 03/31/2024 11:20:03 Date Recorded Body height Body mass index (BMI) Body weight Provider Name and Address Organization Details Last Updated DateTime 05/16/2024 157.48 cm 28 kg/m2 59564.63 g [place] [facility] 05/16/2024 10:06:35 Date Recorded Body height Body mass index (BMI) Body weight Provider Name and Address Organization Details Last Updated DateTime 07/07/2024 157.48 cm 28 kg/m2 96403.63 g EDISON FERGUSON [place] [facility] 07/07/2024 [...] SNOMED-CT Code Diagnosis ICD10 Code Diagnosis Note [id number] MD Yary Jones [facility] [address] [place] [address] 02/15/2024 10:54:15 03/15/2024 10:13:08 Ankle pain 422718013 M25.572 Sprain of left ankle 354 7404352 2773422 S93.402A Closed fra cture of lateral malleolus of left fibula 1904015147 7403033 S82.65XA [id number] MD Yary Jones [facility] [address] [place] [address] 02/18/2024 12:13:19 02/18/2024 13:00:30 Fracture of ankle 00858156 S82.65XA [id number] MD Yary Jones [facility] [address] [place] [address] 02/22/2024 10:57:56 02/22/2024 12:11:51 Sprain of left ankle 1942910972 4480904 S93.402A Sprain of lateral ligament of ankle joint 031534885 S93.492D [id number] MD Yary Jones [facility] [address] [place] [address] 03/01/2024 11:09:22 03/25/2024 10:43:23 Sprain of left ankle 9725556262 6216038 S93.402A [id number] GUNNAR Chau [facility] [address] [place] [address] 03/31/2024 11:04:57 05/05/2024 09:25:42 Sprain of left ankle 2613573121 0856414 S93.402A [id number] Denice Winston PA-C [address] [place] [address] 05/16/2024 09:04:09 06/01/2024 20:41:20 Ankle pain 941833388 M25.252 [id number] Denice Winston PA-C [address] [place] [address] 07/07/2024 13:13:01 07/28/2024 11:52:44 Ankle pain 932000859 M25.579 Health Concerns Section Related Observation LastModified by Organization Detai ls LastModified Time None Recorded Concern Status LastModified by Organization Details LastModified Time None Recorded Advance Directives Directive None Recorded Payers Insurance Date Sequence Insurance Name Policy Number Policy Pearson Covered Member ID Pearson Member ID Guarantor Name 01/16/2025 1 [place] B[place]: [facility] [employer] Abril Gonzalez [id number] Abril Gonzalez 04/28/2024 1 [employer] (MEDICARE REPLACEMENT/A DVANTAGE - PPO) [id number] Abril Gonzalez [id number] Abril Gonzalez 01/16/2025 2 [place] [facility] Abril Shipleyon [id number] Abril Gonzalez 04/28/2024 1 MEDIC[place] B[place] [facility] [employer] Abril Gonzalez [id number] Abril Shipleyon 07/05/2024 [employer] - SPECIALITY CLAIMS (MEDICARE DME REGION A) Abril Shipleyon [id number] Abril Shipleyon 05/06/2024 1 [employer] (MEDICARE REPLACEMENT/A DVANTAGE - PPO) [id number] Abril Gonzalez [id number] Abril Gonzalez Notes Date Note Type Note Provider Name and Address Organization Details Recorded Time 03/01/2024 text/html ROS as noted in the HPI Haris Carroll MD [address], [place], [address], [place] [facility] 03/01/2024 12:09:36 03/31/2024 text/html Patient seen under the direct supervision of Dr. Gil who [...] side effects discussed. Denice Winston PA-C [address] [facility] [facility] [address], [place], [address], [facility] 03/31/2024 12:44:58 05/16/2024 text/html Patient seen under the direct supervision of Dr. Gil who [...] arranged in 6-8 weeks Denice Winston PA-C [address] [place] [address] [address] [facility], [place], [address], [facility] 05/16/2024 11:15:34 07/07/2024 text/html Patient seen under the direct supervision of Dr. Gil who [...] full duty work. Denice Winston PA-C [address], [place], [address], [facility] 07/07/2024 14:01:30 OBGyn Episode No OBEpisode recorded.
--- OUTSIDE RECORDS SUMMARY | 2025-02-13 00:20 | XMS_ITS | Patient Health Record ---
Author Organization [facility] Address [address] [place] [address] Care Team Providers Care Grain Packer Name Role Phone SHANITA JONES Primary Care [...] Risk Notes Problem Lumbosacral spondylosis without myelopathy ([id number]) Spondylosis without myelopathy or radiculopathy, lumbar region (M47.816) Active confirmed Plan Of Treatment No Information Insurance Providers Payer Name Payer Address Payer Phone Subscriber Number Group Number Insured Name Patient Relationship to Insured Coverage Start Date Coverage End Date Medicare B [facility] [address] [place] [phone] [id number] RAMIREZ RILEYE Self - patient is the insured [employer] of [place] [address] [place] [address] [id number] RAMIREZ RILEYE Self - patient is the [...]
[2025-02-13 00:39] VITALS: BP 123/54; PULSE 77; RESP 18; TEMP 36.4; O2SAT 96
--- NOTE | 2025-02-13 00:47 | PC.NURSE ---
pt in room vs obtained, pt reports that she has chronic back pain that is triggering her fibromyalgia but for the past couple of days pain is much more severe. Pt reports that she has gained approximately 12 lbs but also reports recent prednisone use. Pt stated that she found out she has 6 cyst in ovaries and that she is supposed to see a surgeon today at 10am. Pt reporting L-ankle pain and swelling but none noted by this RN. pt states she took all of her home meds as prescribed with no relief, including Gabapentin, naproxen, flexerill, tylenol, and diclofenac. pt given call pillai and warm blanket. Offered ice or heat pack but declined at this time. pt also stated that she has been standing a lot more d/t new living arrangements she has to work which requires her to be on her feet.
[2025-02-13 01:58] LABS: Appearance Urine Clear; Glucose Urine UA Negative (Negative); PH 7.0 (5.0-9.0); Specific Gravity - Urine <= 1.005 (1.005-1.025)
--- NOTE | 2025-02-13 02:27 | ED.GENADULT ---
HPI - General Adult General Chief complaint: Back Pain/Injury Stated complaint: lower back and right hip pain Time Seen by Provider: 02/13/25 01:23 Source: patient Limitations: no limitations History of Present Illness ED Provider: Kayla Stark PA-C HPI narrative: 50-year-old female with a history of fibromyalgia , spondylosis of the lumbar region with lumbar radiculopathy, chronic pain who presents with right-sided low back pain. Patient states she has been having right lower back discomfort with radiation into the help for 3 days. Denies weakness of lower extremities, paresthesia, urinary retention or bowel incontinence. 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 Related Data Home Medications ?Medication ?Instructions ?Recorded ?Confirmed butalbital 50 mg-acetaminophen 325 1 cap PO Q6H PRN Headaches 02/26/23 01/26/25 mg-caffeine 40 mg-codeine 30 mg cap multivitamin 1 tab PO DAILY 04/19/24 01/26/25 diclofenac sodium 75 mg 75 mg PO BID 06/28/24 01/26/25 tablet,delayed release paroxetine HCl 20 mg tablet 20 mg PO DAILY PRN 10/25/24 01/26/25 amitriptyline 25 mg tablet mg PO PRN 01/19/25 01/26/25 Previous Rx's ?Medication ?Instructions ?Recorded acetaminophen 500 mg tablet 500 mg PO Q6H PRN fever #60 tabs 04/23/23 lidocaine 5 % topical patch 1 patch topical Q24H #30 ea 11/09/24 (DermacinRx Lidocan) cyclobenzaprine 10 mg tablet 10 mg PO BID PRN muscle spasm 30 12/21/24 days #60 tabs diphenhydramine HCl 25 mg capsule 25 mg PO TID PRN itching #20 caps 12/25/24 (Benadryl) prednisone 20 mg tablet 60 mg (3 x 20 mg) PO DAILY 5 days 02/01/25 #15 tabs tramadol 100 mg tablet 100 mg PO TID PRN pain #10 tabs 02/01/25 gabapentin 600 mg tablet 600 mg PO BID 30 days #60 tabs 02/02/25 duloxetine 20 mg capsule,delayed 20 mg PO DAILY #30 caps 02/13/25 release methylprednisolone 4 mg tablets in 4 mg PO QAM #21 ea 02/13/25 a dose pack (Medrol (Geovanny)) Allergies Allergy/AdvReac Type Severity Reaction Status Date / Time topiramate (From TOPAMAX) Allergy Mild NAUSEA & Verified 02/17/25 19:16 VOMITING divalproex sodium (From AdvReac Unknown NAUSEA & Verified 02/17/25 19:16 DEPAKOTE) VOMITING Review of Systems Review of Systems: Yes all other systems are reviewed and are negative Constitutional: Constitutional: Denies fatigue and Denies fever(s) Cardiovascular: Cardiovascular: Denies chest pain Gastrointestinal: Gastrointestinal: Denies abdominal pain Musculoskeletal: Musculoskeletal: Reports back pain, Denies muscle weakness, Denies numbness, Reports radiating pain into limb and Denies tingling Neurologic: Denies numbness and Denies tingling Endocrine: Endocrine: Denies fatigue PMFSH Past Medical History Attestation statement: The following information was validated with the patient. Medical History Nicotine dependence, cigarettes, uncomplicated Ankle pain, left Obesity Restless leg syndrome Migraine Anxiety Fibromyalgia Surgical History H/O rectal polypectomy History of surgery History of hernia repair History of wisdom tooth extraction History of tonsillectomy History of umbilical hernia repair H/O LEEP History of colectomy Family History Family History Father CVD (cardiovascular disease) Myocardial infarction Mother Chronic mental illness Dementia Myocardial infarction, Onset Age: 40 Seizure Sister In good health Son In good health Maternal Aunt Breast CA Paternal Aunt Breast CA Other Mental health disorder Social History Social History Household Members Other:: roommate Housing: Other Housing Other:: lives in long term Do you presently have visiting nurse or other home services: No Unable to assess alcohol history related to: Unknown Alcohol intake: never Patient Tobacco Use Status: Current everyday Tobacco user Tobacco use type: Cigarette Years Smoked: (onset 12yo, 1/2-3/4ppd x 38yrs, 25pyh) e-Cigarette/Vaping Use: Never Used Second Hand Smoke Exposure: Yes Substance Use Type: Marijuana Advance Directives: Yes Advance Directives on File: Yes Advance Directives Date on File: 09/17/22 Do you have a plan to hurt others: No Plan service: No Current occupational status: disabled Cognitive needs: No Hearing needs: No Vision needs: No Physical Exam ED Vital Signs: Vital Signs - 24 hr 02/12/25 23:30 02/13/25 00:39 Temperature 97.3 F 97.5 F Pulse Rate 88 77 Respiratory Rate 16 18 Blood Pressure 136/50 L 123/54 L Pulse Oximetry 96 96 Oxygen Delivery Method Room Air Room Air BMI result Body Mass Index 30.6 Const Other: Alert Orientation/consciousness: patient oriented x3 Resp Effort & Inspection: normal respiratory effort Cardio Other: Normal peripheral perfusion Skin Other: Warm dry no rash Neuro General: patient oriented x3, gait normal, no focal motor deficits and CN's II-XI intact bilaterally Extrem Other: Strength 5/5 bilateral lower extremity Psych Other: Hostile Course Reevaluation(s) Reevaluation #1: I was discussing findings with the patient about her imaging, that there were no acute abnormalities, we are having discussion about other modalities to manage her chronic pain. She has multiple medications at home to manage her discomfort. The patient is displeased with our conversation, she is demanding to speak with the attending Medications Administered Discontinued Medications Generic Name Dose Route Start Last Admin Trade Name Freq PRN Reason Stop Dose Admin Duloxetine HCl 20 mg 02/13/25 03:21 02/13/25 03:38 Duloxetine Hcl 20 Mg Capsule. PO 02/13/25 03:22 20 mg ONCE ONE Administration Ketorolac Tromethamine 15 mg 02/13/25 02:45 02/13/25 03:37 Ketorolac Tromethamine 15 Mg/Ml Vial IM 02/13/25 02:46 15 mg ONCE ONE Administration Prednisone 10 mg 02/13/25 03:08 02/13/25 03:38 Prednisone 10 Mg Tablet PO 02/13/25 03:09 10 mg ONCE ONE Administration Medical Decision Making Medical Decision Making MDM Narrative: 50-year-old female with a history of fibromyalgia , spondylosis of the lumbar region with lumbar radiculopathy, chronic pain who presents with right-sided low back pain. Patient states she has been having right lower back discomfort with radiation into the help for 3 days. Denies weakness of lower extremities, paresthesia, urinary retention or bowel incontinence. 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 Plan: Patient is here with chronic back pain, with a radicular symptoms. She has no red flag signs symptoms concerning for cord compression. I obtained imaging of the back, right hip and pelvis, she has degenerative changes L4-L5. The patient is very concerned about what kind of medication I will be giving her. She is enquiring about interventions to help her chronic pain. I have listed several, she is displeased. She is also displeased with the kind of medication I am offering her; methocarbamol, ketorolac, Medrol Dosepak. To note, she was just seen in the emergency department overnight on February 01, she received a prescription for tramadol,steroid taper. She just picked up an rx for gabapentin 600 mg 30 day supply. She is exhibiting medication seeking behavior. To note, she also has been seen by pain management here at [facility]. Labs: No leukocytosis, not anemic, no electrolyte abnormality X-ray lumbar spine: Findings: There is straightening of the normal lumbar lordosis. No acute fractures or dislocation. Degenerative disc height loss with endplate sclerosis is present at L4-L5. IMPRESSION: No acute findings. X-ray right hip pelvis:Findings: No acute fracture or dislocation. No significant arthritic change. The soft tissues are unremarkable. IMPRESSION: No acute findings. Lab Data 02/12/25 23:47 02/12/25 23:47 Labs: Lab Results 02/12/25 02/13/25 Range/Units 23:47 01:52 WBC 10.3 (4.8-10.8) X10*3/uL RBC 4.24 (4.20-5.50) X10*6/uL Hgb 13.7 (12.0-16.0) g/dl Hct 39.2 (37.0-47.0) % MCV 92.5 (80.0-98.0) fL MCH 32.3 (27.0-33.0) pg MCHC 34.9 (31.0-35.0) g/dl RDW 14.6 (11.0-16.0) % Plt Count 295 (160-400) X10*3/uL MPV 8.9 L (9.4-12.3) fL Immature Gran % (Auto) 0.4 (0.0-0.4) % Neut % (Auto) 85.4 H (45-73) % Lymph % (Auto) 11.6 L (20-40) % [place] % (Auto) 1.8 L (2-11) % Eos % (Auto) 0.3 (0-4) % Baso % (Auto) 0.5 (0-2) % Lymph # (Auto) 1.2 (1.2-4.9) X10*3/uL [place] # (Auto) 0.2 (0.1-1.2) X10*3/uL Eos # (Auto) 0.0 (0.0-0.4) X10*3/uL Baso # (Auto) 0.1 (0.0-0.2) X10*3/uL Abs Immat Gran (auto) 0.04 H (0.00-0.03) X10*3/uL Absolute Neuts (auto) 8.8 H (2.0-8.3) x10*3/uL Absolute Nucleated RBC 0.000 (0.0-0.012) X10*3/uL Nucleated RBC % (auto) 0.0 (0.0-0.2) /100WBC Sodium 140 (135-145) mmol/L Potassium 3.8 (3.3-5.1) mmol/L Chloride 108 (96-108) mmol/L Carbon Dioxide 23 (22-29) mmol/L Anion Gap 13 (12-20) BUN 7 L (9-16) mg/dL Creatinine 0.57 (0.5-1.4) mg/dL Estim Creat Clear Calc 111.4 Estimated GFR > 60 Random Glucose 97 (60-115) mg/dL Calcium 8.9 D (8.4-10.2) mg/dL Total Bilirubin 0.1 (0.0-1.0) mg/dL Direct Bilirubin < 0.2 (0.0-0.5) mg/dL AST 19 (5-31) U/L ALT 23 (0-31) U/L Alkaline Phosphatase 65 (39-117) U/L Total Protein 6.6 (6.5-8.0) g/dL Albumin 4.4 (3.5-5.0) g/dL Urine Color Yellow Urine Appearance Clear Urine pH 7.0 (5.0-9.0) Ur Specific [place] <= 1.005 (1.005-1.025) Urine Protein Negative (Neg-Trace) mg/dL Urine Glucose (UA) Negative (Negative) mg/dL Urine Ketones Negative (Negative) mg/dL Urine Blood Negative (Negative) Urine Nitrite Negative (Negative) Ur Leukocyte Esterase Negative (Negative) Hepatitis A IgM Ab Nonreactive (Nonreactive) Hep Bs Antigen Negative (Negative) Hep Bs Antibody NONREACTIVE (Nonreactive) Hep B Core Total Ab Nonreactive (Nonreactive) Hepatitis C Ab (EIA) Nonreactive (Nonreactive) Discharge Plan Discharge Clinical Impression: Chronic radicular lumbar pain Patient Disposition: Home, Self-Care Instructions: Pain Management (ED), Chronic Pain (ED), Lumbar Radiculopathy (ED), Non-pharmacological Pain Management Therapies for Adults (ED) Additional Instructions: You are being treated for your chronic pain. I see from your chart that you have been previously managed by the pain Center and are currently awaiting referral to orthopedic/spine specialists. You already have a prescription for diclofenac, this is an anti-inflammatory. You also already have a prescription for a muscle relaxant, the cyclobenzaprine. You were also given an additional pain medication from your most recent emergency room visit on February 01; tramadol. I also see from your external medication history that your gabapentin prescription was increased on February 09. Take the Medrol Dosepak as directed, this is an additional anti-inflammatory. Take the duloxetine as directed. This is an antidepressant, it will help you with your chronic pain. You can follow up with your primary care provider to have further discussion about continuing this medication. Call tomorrow to make an appointment. There are numerous modalities, that are non pharmacologic in nature, that can manage your chronic pain. The options that we had discussed are listed below: Weight loss and daily exercise, in particular core strengthening activities Therapeutic massage, acupuncture Physical therapy that can be organized by your primary care provider Prescriptions: New methylprednisolone [Medrol (Geovanny)] 4 mg tablets,dose pack 4 mg PO QAM Qty: 21 0RF Rx Instructions: Take per package instructions duloxetine 20 mg capsule,delayed release(DR/EC) 20 mg PO DAILY Qty: 30 0RF No Action lidocaine [DermacinRx Lidocan] 5 % adhesive patch,medicated 1 patch topical Q24H Qty: 30 0RF Rx Instructions: leave on most painful area for up to 12 hrs cyclobenzaprine 10 mg tablet 10 mg PO BID PRN (Reason: muscle spasm) 30 Days Qty: 60 3RF gabapentin 600 mg tablet 600 mg PO BID 30 Days Qty: 60 0RF multivitamin Tablet 1 tab PO DAILY diphenhydramine HCl [Benadryl] 25 mg capsule 25 mg PO TID PRN (Reason: itching) Qty: 20 0RF prednisone 20 mg tablet 60 mg PO DAILY 5 Days Qty: 15 0RF tramadol 100 mg tablet 100 mg PO TID PRN (Reason: pain) Qty: 10 0RF acetaminophen 500 mg tablet 500 mg PO Q6H PRN (Reason: fever) Qty: 60 0RF Rx Instructions: Take 1 tablet every 6 hours as needed for pain/fever. Do not take in combination with Fioricet. njhalivvjr-efnjehvubk-xje-cod [id number] mg capsule 1 cap PO Q6H PRN (Reason: Headaches) paroxetine HCl 20 mg tablet 20 mg PO DAILY PRN diclofenac sodium 75 mg tablet,delayed release (DR/EC) 75 mg PO BID amitriptyline 25 mg tablet PO PRN Stand Alone Forms: Work/School Release Interventions: ED Discharge Assessment Last Done: 02/13/25 03:40 Discharge Date/Time: 02/13/25 07:14 Print Language: Monegasque
[2025-02-13 02:42] LABS: Alanine Aminotransferase 23 U/L (0-31); Albumin Level 4.4 g/dL (3.5-5.0); Alkaline Phosphatase 65 U/L (39-117); Aspartate Amino Transferase 19 U/L (5-31); Total Protein 6.6 g/dL (6.5-8.0)
[2025-02-13 03:40] VITALS: BP 00/00; PULSE 0; RESP 0; TEMP -17.7; TEMP 0; O2SAT 0
[2025-02-13 04:03] LABS: HBS Num1 5.66 mIU/mL (0-7.99); HBc Num1 0.07 S/CO (0.00-0.79); HBsAGNum1 0.41 S/CO (0.00-0.99); Hepatitis A Antibody IgM 0.12 Index (0-0.79); Hepatitis B Surface Antigen Negative (Negative); ~HepC Num1 0.15 S/CO (0.00-0.79); ~Hepatitis A Antibody IgM Nonreactive (Nonreactive); ~Hepatitis B Surface Antibody NONREACTIVE (Nonreactive); ~Hepatitis C Antibody Nonreactive (Nonreactive)
== END 2025-02-13 07:14 | disposition home or self-care (01) ==
PROVIDERS: Physician Assistant Medical; Emergency Provider Emergency Medicine; PCP Physician Assistant
DX: M54.16 Radiculopathy, lumbar region (principal); M54.50 Low back pain, unspecified; F17.210 Nicotine dependence, cigarettes, uncomplicated; M25.551 Pain in right hip
CPT/HCPCS: 36415; 72100; 73502; 80048; 80076; 81003; 85025; 86704; 86706; 86709; 86803; 87340; 96372; 99284; J1885

== ENCOUNTER → 2025-02-13 01:23 | Outpatient (BNV) | payer MEDICARE, MEDICAID, SELFPAY | PROVIDERS: Emergency Provider Emergency Medicine; PCP Physician Assistant; Visit Provider General Practice | DX: M25.551 Pain in right hip (principal); M51.360 Other intervertebral disc degeneration, lumbar region with discogenic back pain only | CPT/HCPCS: 72100; 73502 ==

== ENCOUNTER 2025-02-17 18:51 | Inpatient (IN) | payer MEDICARE, MEDICAID, SELFPAY ==
--- NOTE | ~2025-02-17 | CT_ITS ---
CLINICAL HISTORY: GI bleed, diarrhea CT angiography abdomen and pelvis with and without contrast. 3-D post processing. Comparison: CT/SR - CT LUNG SCREENING - 02/03/25 11:[address]/SR - CT ABDOMEN PELVIS WITH IV CONTRAST - 08/18/24 16:02 EST Findings: Left lower lobe pulmonary nodules are redemonstrated, similar in appearance as compared to the 02/03/2025 exam. The visualized portion of the right lung base appears clear. The liver is enlarged. The liver appears normal in contour. The gallbladder and solid organs are otherwise within normal limits for appearance. Possible tiny nonobstructing calculus at the inferior pole of the right kidney. Small nonobstructing left renal calculi are present. There is a duplicated left renal collecting system. No hydronephrosis or hydroureter. No bowel obstruction, pneumoperitoneum, or pneumatosis. Postsurgical changes of the bowel identified near the expected location of the rectosigmoid junction. There is colonic diverticulosis without CT evidence for acute diverticulitis. No CT evidence for active GI bleeding identified. Small, fat containing umbilical hernia. Small, fat containing supraumbilical ventral hernia defect also present. The abdominal aorta appears normal in course without focal aneurysmal dilation. No abdominal aorta dissection identified. Mildly limited evaluation of the arterial vasculature on this examination as true arterial phase images were not provided. The celiac artery appears to be patent. The SMA appears patent. The BRIDGETT appears patent proximally. The more distal aspect of the BRIDGETT is not well evaluated on this exam. The bilateral renal arteries appear patent. The bilateral lower extremity arterial inflow vessels appear patent. 5.8 cm low-attenuation structure present at the right adnexa, suggesting a right adnexal cyst. The bladder is underdistended. No focal bladder wall thickening identified. Small, fat containing right inguinal hernia. Normal appendix. No acute fracture. Vacuum disc phenomenon present at L4-L5. There is minimal grade 1 retrolisthesis of L4 on L5. IMPRESSION: 1. No CT evidence for active GI bleeding. Evaluation for active arterial bleeding is mildly limited due to suboptimal contrast opacification of the arterial system on the arterial phase images. 2. Hepatomegaly. 3. Nonobstructing left renal calculi with a possible tiny nonobstructing calculus at the inferior pole of the right kidney. No hydronephrosis or hydroureter. 4. Colonic diverticulosis. No CT evidence for acute diverticulitis. 5. Low-attenuation 5.8 cm right adnexal cyst. This document has been electronically signed by: Bruce Raya MD on 02/18/2025 01:44:44
[2025-02-17 19:12] VITALS: BP 116/59; PULSE 99; RESP 15; TEMP 36.9; O2SAT 99; BMI 29.5
[2025-02-17 19:43] LABS: Hematocrit 34.3 % (37.0-47.0); Hemoglobin 12.3 g/dl (12.0-16.0); Mean Corpuscular HGB Conc 35.9 g/dl (31.0-35.0); Mean Corpuscular Hemoglobin 32.7 pg (27.0-33.0); Mean Corpuscular Volume 91.2 fL (80.0-98.0); NRBC Abs Auto 0.000 X10*3/uL (0.0-0.012); NRBC Pct Auto 0.0 /100WBC (0.0-0.2); Platelet Count 329 X10*3/uL (160-400); Red Blood Count 3.76 X10*6/uL (4.20-5.50); White Blood Count 16.2 X10*3/uL (4.8-10.8)
[2025-02-17 19:49] LABS: Alanine Aminotransferase 26 U/L (0-31); Albumin Level 4.2 g/dL (3.5-5.0); Alkaline Phosphatase 59 U/L (39-117); Anion Gap 11 (12-20); Aspartate Amino Transferase 25 U/L (5-31); Blood Urea Nitrogen 14 mg/dL (9-16); Calcium 8.9 mg/dL (8.4-10.2); Carbon Dioxide 25 mmol/L (22-29); Chloride 109 mmol/L (96-108); Creatinine Clr Calc Pharmacy 97.3; Estimated Glomerular Filt Rate > 60; Lipase 27 U/L (8-78); Magnesium 2.0 mg/dL (1.6-2.6); Potassium 3.6 mmol/L (3.3-5.1); Sodium 141 mmol/L (135-145); Total Protein 6.5 g/dL (6.5-8.0)
[2025-02-17 20:08] LABS: Atypical Lymph Absolute Manual 0.6 x10*3/uL; Atypical Lymphs Percent Manual 4 % (0-6); Band Neutrophils Percent 1 % (3-5); Basophils Abs Manual 0.3 X10*3/uL (0.0-0.2); Basophils Percent Manual 2 % (0-2); Eosinophils Absolute Manual 0.2 X10*3/uL (0.0-0.4); Eosinophils Percent Manual 1 % (0-4); Lymphocytes Absolute Manual 8.4 X10*3/uL (1.2-4.9); Lymphocytes Percent Manual 52 % (20-40); Monocytes Absolute Manual 0.8 X10*3/uL (0.1-1.2); Monocytes Percent Manual 5 % (2-11); Neutrophils Absolute Manual 5.8 X10*3/uL (2.0-8.3); Neutrophils Percent Manual 35 % (45-73)
[2025-02-17 20:10] LABS: Macrocytosis 1+ (5-14) /OIF; RBC Morphology NOTED
[2025-02-17 20:11] LABS: Polychromasia 1+ (0-2) /OIF
--- NOTE | 2025-02-17 20:41 | ED_ITS ---
HPI - Nausea/Vomiting/Diarrhea General Chief complaint: Nausea/Vomiting/Diarrhea Stated complaint: bloody stool Time Seen by Provider: 02/17/25 20:41 Source: patient Mode of arrival: ambulatory Limitations: no limitations History of Present Illness ED Provider: HPI Narrative: 50-year-old woman with history of diverticulitis, colectomy, back pain, was seen he had the end of January started on steroids, presenting with what she reports as green black diarrhea yesterday, and a black stool today, she states she had nausea, no vomiting, no hematemesis, she is not on blood thinners no fevers or chills. initially did not endorse abdominal pain. Patient states about a week ago she started developing loose stools and she started taking medications for diarrhea from [employer], she is not sure of the name but stated it is not Pepto- Bismol. And 3 days ago her stool came black. Related Data Home Medications ?Medication ?Instructions ?Recorded ?Confirmed butalbital 50 mg-acetaminophen 325 1 cap PO Q6H PRN He adaches 02/26/23 01/26/25 mg-caffeine 40 mg-codeine 30 mg cap multivitamin 1 tab PO DAILY 04/19/2401/17 paroxetine HCl 20 mg tablet 20 mg PO DAILY PRN 5 01/26/25 amitriptyline 25 mg tablet mg PO PRN 01/19/25 01/26/25 Previous Rx's ?Medication ?Instructions ?Recorded acetaminophen 500 mg tablet 500 mg PO Q6H PRN fever #6 0 tabs 04/23/23 lidocaine 5 % topical patch 1 patch topical Q24H #30 e a 11/09/24 (DermacinRx Lidocan) cyclobenzaprine 10 mg tablet 10 mg PO BID PRN muscle s pasm 30 12/21/24 days #60 tabs diphenhydramine HCl 25 mg capsule 25 mg PO TID PRN itc baldemar #20 caps 12/25/24 (Benadryl) tramadol 100 mg tablet 100 mg PO TID PRN pain #10 t abs 02/01/25 gabapentin 600 mg tablet 600 mg PO BID 30 days #60 ta bs 02/02/25 duloxetine 20 mg capsule,delayed 20 mg PO DAILY #30 ca ps 02/13/25 release Allergies Allergy/AdvReac Type Severity Reaction Status Date / Time topiramate (From TOPAMAX) Allergy Mild NAUSEA & Verified 02/17/25 19:16 VOMITING divalproex sodium (From AdvReac Unknown NAUSEA & Verified 02/17/25 19:16 DEPAKOTE) VOMITING Review of Systems 2 Constitutional: Constitutional: Reports as per [facility] Past Medical History Medical History Nicotine dependence, cigarettes, uncomplicated Ankle pain, left Obesity Restless leg syndrome Migraine Anxiety Fibromyalgia Surgical History H/O rectal polypectomy History of surgery History of hernia repair History of wisdom tooth extraction History of tonsillectomy History of umbilical hernia repair H/O LEEP History of colectomy Family History Family History Father CVD (cardiovascular disease) Myocardial infarction Mother Chronic mental illness Dementia Myocardial infarction, Onset Age: 40 Seizure Sister In good health Son In good health Maternal Aunt Breast CA Paternal Aunt Breast CA Other Mental health disorder Social History Social History Household Members Other:: roommate Housing: Other Housing Other:: lives in retirement Do you presently have visiting nurse or other home services: No Unable to assess alcohol history related to: Unknown Alcohol intake: never Patient Tobacco Use Status: Current everyday Tobacco user Tobacco use type: Cigarette Years Smoked: (onset 12yo, 1/2-3/4ppd x 37yrs, 25pyh) Smoked in Last 30 Days: Yes e-Cigarette/Vaping Use: Never Used Second Hand Smoke Exposure: Yes Use of substances other than those prescribed or required for medical reasons: No Substance Use Type: Marijuana Advance Directives: Yes Advance Directives on File: Yes Advance Directives Date on File: 09/17/22 Do you have a plan to hurt others: No Plan service: No Current occupational status: disabled Cognitive needs: No Hearing needs: No Vision needs: No Physical Exam 2 Vital Signs: Vital Signs: Last Vital Signs Temp 98.3 F 02/17/25 21:23 Pulse 82 02/18/25 02:09 Resp 18 02/18/25 02:09 BP 114/49 L 02/18/25 02:09 Pulse Ox 95 02/18/25 02:09 O2 Del Method Room Air 02/18/25 02:09 BMI result Body Mass Index 29.5 Const: Other: * Gen: ?Overall well-appearing patient * HEENT: PERRLA, EOMI, MMM, * Neck: Supple, no LAD * CV: RRR, no obvious murmurs appreciated * Resp: ?No wheezing rales rhonchi no stridor moving air well * Abd: ?Bowel sounds are present, no tenderness no rebound no rigidity, rectal exam deferred * MSK: FROM, strength 5/5 all extremities * Skin: Warm, dry, intact, * Neuro: ?Alert and oriented x3, moving upper and lower extremities symmetrically, no obvious facial asymmetry noted Medications Administered Discontinued Medications Generic Name Dose Route Start Last Admin Trade Name Freq PRN Reason Stop Dose Admin Belladonna Alkaloids/Phenobarbital 10 ml 02/17/25 21:13 02/17/25 21:34 Phenobarb/Hyoscy/Atropine/Scop 10 Ml Elixir PO 02/17/25 21:14 10 ml ONCE ONE Administration Dicyclomine HCl 10 mg 02/18/25 01:26 02/18/25 02:34 Dicyclomine Hcl 10 Mg Capsule PO 02/18/25 01:27 10 mg ONCE ONE Administration Sodium Chloride 1,000 mls @ 999 mls/hr 02/17/25 22:15 02/18/25 00:15 Ns IV 02/17/25 23:15 Infused .Q1H1M PACO Infusion Iohexol 80 ml 02/17/25 23:30 02/17/25 23:31 Iohexol 350 Mg/Ml 100 Ml Infus..Btl IV 02/17/25 23:31 80 ml ONCE ONE Administration Ondansetron HCl 4 mg 02/17/25 21:13 02/17/25 21:34 Ondansetron Odt 4 Mg Tab.Rapdis TRANSLINGU 02/17/25 21:14 4 mg ONCE ONE Administration Medical Decision Making Medical Decision Making MDM Narrative: Presenting with reports of black stools, initially I was considering whether patient takes Pepto-Bismol that concerned her stools black ( it maybe the generic form bismuth subsalicylate, but that is my guess), her H&H is stable, and benign abdominal exam nothing to suspect diverticulitis, however during a prior visit 3 days ago she was prescribed oral steroids for her back pain, which technically can place her for an upper GI bleed risk, I did deferredon rectal exam it would not contribute to my current management at this time and I will instead obtained on occult stool sample., did not feel that further imaging such as CT is indicated, we will check Hemoccult by send off, and iftrudy is able to give me a stool sample we will check him for C diff. we will treat symptomatically, she is able to tolerate p.o. drinking fluids during our conversation. 1000PM, patient provided a stool sample, it is obviously black, guaiac positive, unfortunately diffcult to tell if melena or black from pepto and heme occult positive as these tests are extremely sensitive, she did take steroids for her back pain when she presented here few days ago, so I will obtain a bleeding CT scan. 01:26 patient re-evaluated, I discussed with her current management plan, I would like to repeat another CBC, I am still awaiting for CT finding, if CT bleeding scan is negative, and her repeat CBC stable I am going to discharge her to follow up with the PCP, and make we will recommend to stop taking steroids, not take any [id number] medications for diarrhea, and if she is not able to see her PCP early in the week to come back Thursday to emergency department for a repeat CBC. I will ask Dr. Mccoy to f/u on rpt CBC and CT patient's hemoglobin dropped a bit. No significantly. Patient is still reporting ongoing abdominal pain. Patient states that she has an appointment pending with the Gastroenterology in August of 2025 for a colonoscopy. Patient very apprehensive, very concerned about the black diarrhea. Discussed with the patient that based on CT scan, there is no signs of active GI bleed, the positive guaiac to be secondary to irritation from the diarrhea. Patient is hemodynamically stable. Overall, I discussed the patient with Dr. Abreu, we will admit the patient for a GI consult Differential Diagnosis Differential Diagnoses: The differential diagnosis associated with the presentation includes (Upper GI bleed, lower GI bleed, diverticulitis, ischemic colitis, infectious colitis,,) Admission/Observation Consideration of admission/observation: Escalation of care including admission/observation considered 2022 Emergency Medicine Coding Guide from [employer] on 02/17/2025 All calculations should be rechecked by clinician prior to use RESULT SUMMARY: 4 Estimated Level of Service Problems: Moderate (4) Risk: Moderate (4) Data: Moderate (4) NARRATIVE MDM: This patient's problem complexity is Moderate as patient: has a new undiagnosed problem with uncertain prognosis but that could be serious. This patient's risk is Moderate due to: overall presentation requiring evaluation for a potentially Moderate-risk process. This patient's data complexity is Moderate due to: -multiple tests ordered INPUTS: Number and Complexity ?> 5 = 4: undiagnosed new problem, uncertain outcome (e) Risk level ?> 3 = Moderate Tests ordered ?> 2 = 2 Tests results reviewed (excluding labs) ?> 1 = 1 Prior external notes reviewed ?> 0 = 0 Assessment requiring and independent historian ?> 0 = No Independent interpretation of tests ?> 0 = No Discussed management/test interpretation w/external professional ?> 0 = No Lab Data [facility] Lab Attestation statement: I reviewed the patient's lab results. 02/18/25 02:17 02/17/25 19:21 Labs: Lab Results 02/17/25 02/17/25 02/18/25 Range/Units 19:21 21:38 02:17 WBC 16.2 H Cancelled (4.8-10.8) X10*3/uL RBC 3.76 L (4.20-5.50) X10*6/uL Hgb 12.3 (12.0-16.0) g/dl Hct 34.3 L (37.0-47.0) % MCV 91.2 (80.0-98.0) fL MCH 32.7 (27.0-33.0) pg MCHC 35.9 H (31.0-35.0) g/dl RDW 15.2 (11.0-16.0) % Plt Count 329 (160-400) X10*3/uL MPV 9.0 L (9.4-12.3) fL Immature Gran % (Auto) Cancelled Neut % (Auto) Cancelled Lymph % (Auto) Cancelled Clare % (Auto) Cancelled Eos % (Auto) Cancelled Baso % (Auto) Cancelled Lymph # (Auto) Cancelled Clare # (Auto) Cancelled Eos # (Auto) Cancelled Baso # (Auto) Cancelled Abs Immat Gran (auto) Cancelled Absolute Neuts (auto) Cancelled Absolute Nucleated RBC 0.000 (0.0-0.012) X10*3/uL Nucleated RBC % (auto) 0.0 (0.0-0.2) /100WBC Neutrophils % (Manual) 35 L (45-73) % Band Neutrophils % 1 L (3-5) % Lymphocytes % (Manual) 52 H (20-40) % Atypical Lymphs % (Man) 4 (0-6) % Monocytes % (Manual) 5 (2-11) % Eosinophils % (Manual) 1 (0-4) % Basophils % (Manual) 2 (0-2) % Abs Neuts (Manual) 5.8 (2.0-8.3) X10*3/uL Lymphocytes # (Manual) 8.4 H (1.2-4.9) X10*3/uL Atyp Lymphs # (Manual) 0.6 x10*3/uL Monocytes # (Manual) 0.8 (0.1-1.2) X10*3/uL Eosinophils # (Manual) 0.2 (0.0-0.4) X10*3/uL Basophils # (Manual) 0.3 H (0.0-0.2) X10*3/uL Platelet Estimate NORMAL (NORMAL) Plt Morphology Comment NORMAL RBC Morphology NOTED Polychromasia 1+ (0-2) /OIF Macrocytosis 1+ (5-14) /OIF Smear Tech's Comments MANUAL DIFF Sodium 141 (135-145) mmol/L Potassium 3.6 (3.3-5.1) mmol/L Chloride 109 H (96-108) mmol/L Carbon Dioxide 25 (22-29) mmol/L Anion Gap 11 L (12-20) BUN 14 (9-16) mg/dL Creatinine 0.64 (0.5-1.4) mg/dL Estim Creat Clear Calc 97.3 Estimated GFR > 60 Random Glucose 112 (60-115) mg/dL Calcium 8.9 (8.4-10.2) mg/dL Magnesium 2.0 (1.6-2.6) mg/dL Total Bilirubin 0.1 (0.0-1.0) mg/dL AST 25 (5-31) U/L ALT 26 (0-31) U/L Alkaline Phosphatase 59 (39-117) U/L Total Protein 6.5 (6.5-8.0) g/dL Albumin 4.2 (3.5-5.0) g/dL Lipase 27 (8-78) U/L Urine Color Urine Appearance Urine pH (5.0-9.0) Ur Specific [place] (1.005-1.025) Urine Protein (Neg-Trace) mg/dL Urine Glucose (UA) (Negative) mg/dL Urine Ketones (Negative) mg/dL Urine Blood (Negative) Urine Nitrite (Negative) Ur Leukocyte Esterase (Negative) Urine RBC (0-2) /HPF Urine WBC (0-5) /HPF Ur Squamous Epith Cells (0-2) /HPF Urine Bacteria (None Seen) Hyaline Casts (0-2) /LPF Stool Occult Blood POSITIVE (NEGATIVE) C. difficile Tox B Gene NEGATIVE (Negative) 02/18/25 02/18/25 02/18/25 Range/Units 02:17 02:17 02:17 WBC 13.4 H (4.8-10.8) X10*3/uL RBC Cancelled 3.46 L (4.20-5.50) X10*6/uL Hgb Cancelled 11.4 L (12.0-16.0) g/dl Hct Cancelled (37.0-47.0) % MCV (80.0-98.0) fL MCH (27.0-33.0) pg MCHC (31.0-35.0) g/dl RDW (11.0-16.0) % Plt Count (160-400) X10*3/uL MPV (9.4-12.3) fL Immature Gran % (Auto) Neut % (Auto) Lymph % (Auto) Clare % (Auto) Eos % (Auto) Baso % (Auto) Lymph # (Auto) Clare # (Auto) Eos # (Auto) Baso # (Auto) Abs Immat Gran (auto) Absolute Neuts (auto) Absolute Nucleated RBC (0.0-0.012) X10*3/uL Nucleated RBC % (auto) (0.0-0.2) /100WBC Neutrophils % (Manual) (45-73) % Band Neutrophils % (3-5) % Lymphocytes % (Manual) (20-40) % Atypical Lymphs % (Man) (0-6) % Monocytes % (Manual) (2-11) % Eosinophils % (Manual) (0-4) % Basophils % (Manual) (0-2) % Abs Neuts (Manual) (2.0-8.3) X10*3/uL Lymphocytes # (Manual) (1.2-4.9) X10*3/uL Atyp Lymphs # (Manual) x10*3/uL Monocytes # (Manual) (0.1-1.2) X10*3/uL Eosinophils # (Manual) (0.0-0.4) X10*3/uL Basophils # (Manual) (0.0-0.2) X10*3/uL Platelet Estimate (NORMAL) Plt Morphology Comment RBC Morphology Polychromasia /OIF Macrocytosis /OIF Smear Tech's Comments Sodium (135-145) mmol/L Potassium (3.3-5.1) mmol/L Chloride (96-108) mmol/L Carbon Dioxide (22-29) mmol/L Anion Gap (12-20) BUN (9-16) mg/dL Creatinine (0.5-1.4) mg/dL Estim Creat Clear Calc Estimated GFR Random Glucose (60-115) mg/dL Calcium (8.4-10.2) mg/dL Magnesium (1.6-2.6) mg/dL Total Bilirubin (0.0-1.0) mg/dL AST (5-31) U/L ALT (0-31) U/L Alkaline Phosphatase (39-117) U/L Total Protein (6.5-8.0) g/dL Albumin (3.5-5.0) g/dL Lipase (8-78) U/L Urine Color Urine Appearance Urine pH (5.0-9.0) Ur Specific [place] (1.005-1.025) Urine Protein (Neg-Trace) mg/dL Urine Glucose (UA) (Negative) mg/dL Urine Ketones (Negative) mg/dL Urine Blood (Negative) Urine Nitrite (Negative) Ur Leukocyte Esterase (Negative) Urine RBC (0-2) /HPF Urine WBC (0-5) /HPF Ur Squamous Epith Cells (0-2) /HPF Urine Bacteria (None Seen) Hyaline Casts (0-2) /LPF Stool Occult Blood (NEGATIVE) C. difficile Tox B Gene (Negative) 02/18/25 02/18/25 02/18/25 Range/Units 02:17 02:17 02:17 WBC (4.8-10.8) X10*3/uL RBC (4.20-5.50) X10*6/uL Hgb (12.0-16.0) g/dl Hct 31.8 L (37.0-47.0) % MCV Cancelled 91.9 (80.0-98.0) fL MCH Cancelled 32.9 (27.0-33.0) pg MCHC Cancelled (31.0-35.0) g/dl RDW (11.0-16.0) % Plt Count (160-400) X10*3/uL MPV (9.4-12.3) fL Immature Gran % (Auto) Neut % (Auto) Lymph % (Auto) Clare % (Auto) Eos % (Auto) Baso % (Auto) Lymph # (Auto) Clare # (Auto) Eos # (Auto) Baso # (Auto) Abs Immat Gran (auto) Absolute Neuts (auto) Absolute Nucleated RBC (0.0-0.012) X10*3/uL Nucleated RBC % (auto) (0.0-0.2) /100WBC Neutrophils % (Manual) (45-73) % Band Neutrophils % (3-5) % Lymphocytes % (Manual) (20-40) % Atypical Lymphs % (Man) (0-6) % Monocytes % (Manual) (2-11) % Eosinophils % (Manual) (0-4) % Basophils % (Manual) (0-2) % Abs Neuts (Manual) (2.0-8.3) X10*3/uL Lymphocytes # (Manual) (1.2-4.9) X10*3/uL Atyp Lymphs # (Manual) x10*3/uL Monocytes # (Manual) (0.1-1.2) X10*3/uL Eosinophils # (Manual) (0.0-0.4) X10*3/uL Basophils # (Manual) (0.0-0.2) X10*3/uL Platelet Estimate (NORMAL) Plt Morphology Comment RBC Morphology Polychromasia /OIF Macrocytosis /OIF Smear Tech's Comments Sodium (135-145) mmol/L Potassium (3.3-5.1) mmol/L Chloride (96-108) mmol/L Carbon Dioxide (22-29) mmol/L Anion Gap (12-20) BUN (9-16) mg/dL Creatinine (0.5-1.4) mg/dL Estim Creat Clear Calc Estimated GFR Random Glucose (60-115) mg/dL Calcium (8.4-10.2) mg/dL Magnesium (1.6-2.6) mg/dL Total Bilirubin (0.0-1.0) mg/dL AST (5-31) U/L ALT (0-31) U/L Alkaline Phosphatase (39-117) U/L Total Protein (6.5-8.0) g/dL Albumin (3.5-5.0) g/dL Lipase (8-78) U/L Urine Color Urine Appearance Urine pH (5.0-9.0) Ur Specific [place] (1.005-1.025) Urine Protein (Neg-Trace) mg/dL Urine Glucose (UA) (Negative) mg/dL Urine Ketones (Negative) mg/dL Urine Blood (Negative) Urine Nitrite (Negative) Ur Leukocyte Esterase (Negative) Urine RBC (0-2) /HPF Urine WBC (0-5) /HPF Ur Squamous Epith Cells (0-2) /HPF Urine Bacteria (None Seen) Hyaline Casts (0-2) /LPF Stool Occult Blood (NEGATIVE) C. difficile Tox B Gene (Negative) 02/18/25 02/18/25 02/18/25 Range/Units 02:17 02:17 02:17 WBC (4.8-10.8) X10*3/uL RBC (4.20-5.50) X10*6/uL Hgb (12.0-16.0) g/dl Hct (37.0-47.0) % MCV (80.0-98.0) fL MCH (27.0-33.0) pg MCHC 35.8 H (31.0-35.0) g/dl RDW Cancelled 15.3 (11.0-16.0) % Plt Count Cancelled 295 (160-400) X10*3/uL MPV Cancelled (9.4-12.3) fL Immature Gran % (Auto) Neut % (Auto) Lymph % (Auto) Clare % (Auto) Eos % (Auto) Baso % (Auto) Lymph # (Auto) Clare # (Auto) Eos # (Auto) Baso # (Auto) Abs Immat Gran (auto) Absolute Neuts (auto) Absolute Nucleated RBC (0.0-0.012) X10*3/uL Nucleated RBC % (auto) (0.0-0.2) /100WBC Neutrophils % (Manual) (45-73) % Band Neutrophils % (3-5) % Lymphocytes % (Manual) (20-40) % Atypical Lymphs % (Man) (0-6) % Monocytes % (Manual) (2-11) % Eosinophils % (Manual) (0-4) % Basophils % (Manual) (0-2) % Abs Neuts (Manual) (2.0-8.3) X10*3/uL Lymphocytes # (Manual) (1.2-4.9) X10*3/uL Atyp Lymphs # (Manual) x10*3/uL Monocytes # (Manual) (0.1-1.2) X10*3/uL Eosinophils # (Manual) (0.0-0.4) X10*3/uL Basophils # (Manual) (0.0-0.2) X10*3/uL Platelet Estimate (NORMAL) Plt Morphology Comment RBC Morphology Polychromasia /OIF Macrocytosis /OIF Smear Tech's Comments Sodium (135-145) mmol/L Potassium (3.3-5.1) mmol/L Chloride (96-108) mmol/L Carbon Dioxide (22-29) mmol/L Anion Gap (12-20) BUN (9-16) mg/dL Creatinine (0.5-1.4) mg/dL Estim Creat Clear Calc Estimated GFR Random Glucose (60-115) mg/dL Calcium (8.4-10.2) mg/dL Magnesium (1.6-2.6) mg/dL Total Bilirubin (0.0-1.0) mg/dL AST (5-31) U/L ALT (0-31) U/L Alkaline Phosphatase (39-117) U/L Total Protein (6.5-8.0) g/dL Albumin (3.5-5.0) g/dL Lipase (8-78) U/L Urine Color Urine Appearance Urine pH (5.0-9.0) Ur Specific [place] (1.005-1.025) Urine Protein (Neg-Trace) mg/dL Urine Glucose (UA) (Negative) mg/dL Urine Ketones (Negative) mg/dL Urine Blood (Negative) Urine Nitrite (Negative) Ur Leukocyte Esterase (Negative) Urine RBC (0-2) /HPF Urine WBC (0-5) /HPF Ur Squamous Epith Cells (0-2) /HPF Urine Bacteria (None Seen) Hyaline Casts (0-2) /LPF Stool Occult Blood (NEGATIVE) C. difficile Tox B Gene (Negative) 02/18/25 02/18/25 02/18/25 Range/Units 02:17 02:17 02:17 WBC (4.8-10.8) X10*3/uL RBC (4.20-5.50) X10*6/uL Hgb (12.0-16.0) g/dl Hct (37.0-47.0) % MCV (80.0-98.0) fL MCH (27.0-33.0) pg MCHC (31.0-35.0) g/dl RDW (11.0-16.0) % Plt Count (160-400) X10*3/uL MPV 8.9 L (9.4-12.3) fL Immature Gran % (Auto) 0.9 H Neut % (Auto) 48.1 Lymph % (Auto) 44.2 H Clare % (Auto) 4.6 Eos % (Auto) 1.7 Baso % (Auto) 0.5 Lymph # (Auto) 5.9 H Clare # (Auto) 0.6 Eos # (Auto) 0.2 Baso # (Auto) 0.1 Abs Immat Gran (auto) 0.12 H Absolute Neuts (auto) 6.5 Absolute Nucleated RBC Cancelled 0.000 (0.0-0.012) X10*3/uL Nucleated RBC % (auto) Cancelled 0.0 (0.0-0.2) /100WBC Neutrophils % (Manual) (45-73) % Band Neutrophils % (3-5) % Lymphocytes % (Manual) (20-40) % Atypical Lymphs % (Man) (0-6) % Monocytes % (Manual) (2-11) % Eosinophils % (Manual) (0-4) % Basophils % (Manual) (0-2) % Abs Neuts (Manual) (2.0-8.3) X10*3/uL Lymphocytes # (Manual) (1.2-4.9) X10*3/uL Atyp Lymphs # (Manual) x10*3/uL Monocytes # (Manual) (0.1-1.2) X10*3/uL Eosinophils # (Manual) (0.0-0.4) X10*3/uL Basophils # (Manual) (0.0-0.2) X10*3/uL Platelet Estimate (NORMAL) Plt Morphology Comment RBC Morphology Polychromasia /OIF Macrocytosis /OIF Smear Tech's Comments Sodium (135-145) mmol/L Potassium (3.3-5.1) mmol/L Chloride (96-108) mmol/L Carbon Dioxide (22-29) mmol/L Anion Gap (12-20) BUN (9-16) mg/dL Creatinine (0.5-1.4) mg/dL Estim Creat Clear Calc Estimated GFR Random Glucose (60-115) mg/dL Calcium (8.4-10.2) mg/dL Magnesium (1.6-2.6) mg/dL Total Bilirubin (0.0-1.0) mg/dL AST (5-31) U/L ALT (0-31) U/L Alkaline Phosphatase (39-117) U/L Total Protein (6.5-8.0) g/dL Albumin (3.5-5.0) g/dL Lipase (8-78) U/L Urine Color Urine Appearance Urine pH (5.0-9.0) Ur Specific [place] (1.005-1.025) Urine Protein (Neg-Trace) mg/dL Urine Glucose (UA) (Negative) mg/dL Urine Ketones (Negative) mg/dL Urine Blood (Negative) Urine Nitrite (Negative) Ur Leukocyte Esterase (Negative) Urine RBC (0-2) /HPF Urine WBC (0-5) /HPF Ur Squamous Epith Cells (0-2) /HPF Urine Bacteria (None Seen) Hyaline Casts (0-2) /LPF Stool Occult Blood (NEGATIVE) C. difficile Tox B Gene (Negative) 02/18/25 Range/Units 02:27 WBC (4.8-10.8) X10*3/uL RBC (4.20-5.50) X10*6/uL Hgb (12.0-16.0) g/dl Hct (37.0-47.0) % MCV (80.0-98.0) fL MCH (27.0-33.0) pg MCHC (31.0-35.0) g/dl RDW (11.0-16.0) % Plt Count (160-400) X10*3/uL MPV (9.4-12.3) fL Immature Gran % (Auto) Neut % (Auto) Lymph % (Auto) Clare % (Auto) Eos % (Auto) Baso % (Auto) Lymph # (Auto) Clare # (Auto) Eos # (Auto) Baso # (Auto) Abs Immat Gran (auto) Absolute Neuts (auto) Absolute Nucleated RBC (0.0-0.012) X10*3/uL Nucleated RBC % (auto) (0.0-0.2) /100WBC Neutrophils % (Manual) (45-73) % Band Neutrophils % (3-5) % Lymphocytes % (Manual) (20-40) % Atypical Lymphs % (Man) (0-6) % Monocytes % (Manual) (2-11) % Eosinophils % (Manual) (0-4) % Basophils % (Manual) (0-2) % Abs Neuts (Manual) (2.0-8.3) X10*3/uL Lymphocytes # (Manual) (1.2-4.9) X10*3/uL Atyp Lymphs # (Manual) x10*3/uL Monocytes # (Manual) (0.1-1.2) X10*3/uL Eosinophils # (Manual) (0.0-0.4) X10*3/uL Basophils # (Manual) (0.0-0.2) X10*3/uL Platelet Estimate (NORMAL) Plt Morphology Comment RBC Morphology Polychromasia /OIF Macrocytosis /OIF Smear Tech's Comments Sodium (135-145) mmol/L Potassium (3.3-5.1) mmol/L Chloride (96-108) mmol/L Carbon Dioxide (22-29) mmol/L Anion Gap (12-20) BUN (9-16) mg/dL Creatinine (0.5-1.4) mg/dL Estim Creat Clear Calc Estimated GFR Random Glucose (60-115) mg/dL Calcium (8.4-10.2) mg/dL Magnesium (1.6-2.6) mg/dL Total Bilirubin (0.0-1.0) mg/dL AST (5-31) U/L ALT (0-31) U/L Alkaline Phosphatase (39-117) U/L Total Protein (6.5-8.0) g/dL Albumin (3.5-5.0) g/dL Lipase (8-78) U/L Urine Color Yellow Urine Appearance Clear Urine pH 7.0 (5.0-9.0) Ur Specific [place] >= 1.030 H (1.005-1.025) Urine Protein Trace (Neg-Trace) mg/dL Urine Glucose (UA) Negative (Negative) mg/dL Urine Ketones Trace (Negative) mg/dL Urine Blood Negative (Negative) Urine Nitrite Negative (Negative) Ur Leukocyte Esterase Negative (Negative) Urine RBC 0-2 (0-2) /HPF Urine WBC 0-5 (0-5) /HPF Ur Squamous Epith Cells 0-2 (0-2) /HPF Urine Bacteria None Seen (None Seen) Hyaline Casts 0-2 (0-2) /LPF Stool Occult Blood (NEGATIVE) C. difficile Tox B Gene (Negative) Independent Interpretation I performed an independent interpretation of an: CT Scan Radiology Impression Discussion of test interpretation with radiology: I have reviewed the radiologist's reading. (Prior CT) Radiologist Impression: 1. No CT evidence for active GI bleeding. Evaluation for active arterial bleeding is mildly limited due to suboptimal contrast opacification of the arterial system on the arterial phase images. 2. Hepatomegaly. 3. Nonobstructing left renal calculi with a possible tiny nonobstructing calculus at the inferior pole of the right kidney. No hydronephrosis or hydroureter. 4. Colonic diverticulosis. No CT evidence for acute diverticulitis. 5. Low-attenuation 5.8 cm right adnexal cyst. Critical Care Time Critical Care Time Critical Care Time: Yes Total Critical Care Time: 60 Attestation: I have personally provided critical care time. Time includes review of lab data, radiology results, discussion with consultants, and monitoring for potential decompensation. Intervention performed as documented. Discharge Plan Discharge Clinical Impression: Diarrhea of presumed infectious origin, Black stool, Occult GI bleeding Patient Disposition: Admitted As Inpatient Additional Instructions: Hemoglobin and hematocrit remained stable in the emergency department, you had a bleeding scan done that did not show any evidence of ongoing bleeding I would like you to not take any over the counter medications and instead if you have not loose stools just let them run its course, there is really no indication for antibiotics at this time or any medications to slow down loose stools. Instead concentrated on staying well hydrated, you can take Tylenol 975 mg as needed for pain, avoid taking Motrin and I would like you to stop taking steroids. I would like you to come back here to Emergency Department on Thursday or Thursday if you are not able to see a primary care physician for repeat CBC. If you are having some worsening symptoms, significant weakness, dizziness, you can come back to ER earlier for re-evaluation. Print Language: Norwegian
[2025-02-17 21:23] VITALS: BP 124/56; PULSE 96; RESP 18; TEMP 36.8; O2SAT 97
[2025-02-17] MEDS: PHENobarb/Hyoscy/Atropine/Scop 10 ML ELIXIR PO (21:34)
[2025-02-17 21:46] LABS: OBS Int Ctl Valid YES; OBS1 POSITIVE (NEGATIVE)
[2025-02-17 22:41] LABS: CDiff Gene PCR NEGATIVE (Negative)
--- NOTE | 2025-02-17 23:12 | PC.NURSE ---
Pt is a&ox4, no signs of distress. 20g line placed in right a/c Pt medicated per mar Plan of care ongoing.
[2025-02-17] MEDS: iohexoL 350 MG/ML 100 ML INFUS..BTL 80 ML IV (23:31)
--- NOTE | 2025-02-17 23:57 | PC.NURSE ---
Pt requested and given warm blanket Plan of care ongoing.
[2025-02-18 02:09] VITALS: BP 114/49; PULSE 82; RESP 18; O2SAT 95
[2025-02-18 02:24] LABS: Hematocrit 31.8 % (37.0-47.0); Hemoglobin 11.4 g/dl (12.0-16.0); Imm Gran Abs Auto 0.12 X10*3/uL (0.00-0.03); Imm Gran Pct Auto 0.9 % (0.0-0.4); Lymphocytes Absolute Auto 5.9 X10*3/uL (1.2-4.9); MANUAL DIFF FLAG SCAN; Mean Corpuscular HGB Conc 35.8 g/dl (31.0-35.0); Mean Corpuscular Hemoglobin 32.9 pg (27.0-33.0); Mean Corpuscular Volume 91.9 fL (80.0-98.0); NRBC Abs Auto 0.000 X10*3/uL (0.0-0.012); NRBC Pct Auto 0.0 /100WBC (0.0-0.2); Platelet Count 295 X10*3/uL (160-400); Red Blood Count 3.46 X10*6/uL (4.20-5.50); White Blood Count 13.4 X10*3/uL (4.8-10.8)
[2025-02-18 02:34] LABS: Appearance Urine Clear; Glucose Urine UA Negative (Negative); PH 7.0 (5.0-9.0); Specific Gravity - Urine >= 1.030 (1.005-1.025)
--- NOTE | 2025-02-18 02:39 | PC.NURSE ---
Pt medicated per sep Pt requested and IV line placed removed. Pt requested and pillow given Plan of care ongoing.
[2025-02-18 02:49] LABS: SCAN SMEAR FLAG 1
--- NOTE | 2025-02-18 04:03 | P.HPHOSP_ITS ---
History of Present Illness Date of Service: 02/18/25 Attending physician on admission: Baltazar Abreu Chief Complaint: Melena Patient is a 50-year-old female with a past medical history significant for diverticulitis with subsequent colectomy, back pain, migraines, who presented to the ED due to nausea, fatigue, headache and melena. She reports 3 episodes over the last 2 days, 1 larger episode. She denies any abdominal pain. She was taking steroids at the end of January due to her back pain and experience loose stools for about a week afterwards. She reports that she started taking something [id number] for diarrhea, denies using Pepto-Bismol. She denies any other symptoms including chest pain, shortness of breath, urinary symptoms. Review of Systems 2 Constitutional: Constitutional: Denies chills, Reports fatigue and Denies headache(s) Eyes: Eyes: Denies change in vision ENT: Denies headache(s), Denies nasal congestion and Denies sore throat Cardiovascular: Cardiovascular: Denies chest pain, Denies rapid heart rate, Denies leg edema, Denies lightheadedness and Denies dyspnea Respiratory: Respiratory: Denies chest congestion, Denies cough, Denies dyspnea and Denies wheezing Gastrointestinal: Gastrointestinal: Denies abdominal pain, Reports melena, Reports diarrhea, Reports nausea and Denies vomiting Genitourinary: Genitourinary: Denies difficulty voiding, Denies dysuria and Denies urinary urgency Musculoskeletal: Musculoskeletal: Denies myalgias Integumentary/Breasts: Skin/Breast: Denies rash Neurologic: Denies confusion and Denies headache(s) Psychiatric: Psychiatric: Denies confusion Endocrine: Endocrine: Reports fatigue Hematologic/Lymphatic: Hematologic/Lymphatic: Denies easy bleeding Allergic/Immunologic: Allergic/Immunologic: Denies wheezing [facility] Medical History Nicotine dependence, cigarettes, uncomplicated Ankle pain, left Obesity Restless leg syndrome Migraine Anxiety Fibromyalgia Functional capacity: independent ambulation Family History Father CVD (cardiovascular disease) Myocardial infarction Mother Chronic mental illness Dementia Myocardial infarction, Onset Age: 40 Seizure Sister In good health Son In good health Maternal Aunt Breast CA Paternal Aunt Breast CA Other Mental health disorder Surgical History H/O rectal polypectomy History of surgery History of hernia repair History of wisdom tooth extraction History of tonsillectomy History of umbilical hernia repair H/O LEEP History of colectomy Social History Household Members Other:: roommate Housing: Other Housing Other:: lives in correction Do you presently have visiting nurse or other home services: No Unable to assess alcohol history related to: Unknown Alcohol intake: never Patient Tobacco Use Status: Current everyday Tobacco user Tobacco use type: Cigarette Years Smoked: (onset 12yo, 1/2-3/4ppd x 37yrs, 25pyh) Smoked in Last 30 Days: Yes e-Cigarette/Vaping Use: Never Used Second Hand Smoke Exposure: Yes Use of substances other than those prescribed or required for medical reasons: No Substance Use Type: Marijuana Advance Directives: Yes Advance Directives on File: Yes Advance Directives Date on File: 09/17/22 Do you have a plan to hurt others: No Plan service: No Current occupational status: disabled Cognitive needs: No Hearing needs: No Vision needs: No Narrative: Smokes about 1 pack per day, no alcohol or drug use Meds Allergies Allergy/AdvReac Type Severity Reaction Status Date / Time topiramate (From TOPAMAX) Allergy Mild NAUSEA & Verified 02/17/25 19:16 VOMITING divalproex sodium (From AdvReac Unknown NAUSEA & Verified 02/17/25 19:16 DEPAKOTE) VOMITING Home Medications ?Medication ?Instructions ?Recorded ?Confirmed ?Last Taken ?Type butalbital 50 mg-acetaminophen 325 1 cap PO Q6H PRN He adaches 02/26/23 01/26/25 04/18/24 History mg-caffeine 40 mg-codeine 30 mg cap multivitamin 1 tab PO DAILY 04/19/2401/1704/18/24 History paroxetine HCl 20 mg tablet 20 mg PO DAILY PRN 5 01/26/25 Unknown History amitriptyline 25 mg tablet mg PO PRN 01/19/25 01/26/25 Unknown History Physical Exam 2 Vital Signs and Narrative: Vital Signs: Last Vital Signs Temp 98.3 F 02/17/25 21:23 Pulse 82 02/18/25 02:09 Resp 18 02/18/25 02:09 BP 114/49 L 02/18/25 02:09 Pulse Ox 95 02/18/25 02:09 O2 Del Method Room Air 02/18/25 02:09 BMI result Body Mass Index 29.5 General: AOx3, no acute distress Resp: CTA bilaterally CVS: S1, S2, RRR GI: +BS, mild epigastric/left upper quadrant tenderness, no distention Skin: Warm, dry Neuro: Cranial nerves II-XII grossly intact bilaterally. Motor grossly intact bilaterally Extremities: No lower extremity edema Psych: Appropriate affect Const: General: No confusion Orientation/consciousness: No confusion Neuro: General: No confusion Results Labs 02/18/25 02:17 02/17/25 19:21 Labs: Laboratory Results - last 24 hr 02/17/25 02/17/25 02/18/25 19:21 21:38 02:17 MCV 91.2 Cancelled MCH 32.7 MCHC 35.9 H RDW 15.2 Plt Count 329 MPV 9.0 L Immature Gran % (Auto) Cancelled Neut % (Auto) Cancelled Lymph % (Auto) Cancelled Ocean % (Auto) Cancelled Eos % (Auto) Cancelled Baso % (Auto) Cancelled Lymph # (Auto) Cancelled Ocean # (Auto) Cancelled Eos # (Auto) Cancelled Baso # (Auto) Cancelled Abs Immat Gran (auto) Cancelled Absolute Neuts (auto) Cancelled Absolute Nucleated RBC 0.000 Nucleated RBC % (auto) 0.0 Neutrophils % (Manual) 35 L Band Neutrophils % 1 L Lymphocytes % (Manual) 52 H Atypical Lymphs % (Man) 4 Monocytes % (Manual) 5 Eosinophils % (Manual) 1 Basophils % (Manual) 2 Abs Neuts (Manual) 5.8 Lymphocytes # (Manual) 8.4 H Atyp Lymphs # (Manual) 0.6 Monocytes # (Manual) 0.8 Eosinophils # (Manual) 0.2 Basophils # (Manual) 0.3 H Platelet Estimate NORMAL Plt Morphology Comment NORMAL RBC Morphology NOTED Polychromasia 1+ (0-2) Macrocytosis 1+ (5-14) Smear Tech's Comments MANUAL DIFF Anion Gap 11 L Estim Creat Clear Calc 97.3 Estimated GFR > 60 Random Glucose 112 Calcium 8.9 Magnesium 2.0 Total Bilirubin 0.1 AST 25 ALT 26 Alkaline Phosphatase 59 Total Protein 6.5 Albumin 4.2 Lipase 27 Urine Color Urine Appearance Urine pH Ur Specific [place] Urine Protein Urine Glucose (UA) Urine Ketones Urine Blood Urine Nitrite Ur Leukocyte Esterase Urine RBC Urine WBC Ur Squamous Epith Cells Urine Bacteria Hyaline Casts Stool Occult Blood POSITIVE C. difficile Tox B Gene NEGATIVE 02/18/25 02/18/25 02/18/25 02:17 02:17 02:17 MCV 91.9 MCH Cancelled 32.9 MCHC Cancelled 35.8 H RDW Cancelled Plt Count MPV Immature Gran % (Auto) Neut % (Auto) Lymph % (Auto) Ocean % (Auto) Eos % (Auto) Baso % (Auto) Lymph # (Auto) Ocean # (Auto) Eos # (Auto) Baso # (Auto) Abs Immat Gran (auto) Absolute Neuts (auto) Absolute Nucleated RBC Nucleated RBC % (auto) Neutrophils % (Manual) Band Neutrophils % Lymphocytes % (Manual) Atypical Lymphs % (Man) Monocytes % (Manual) Eosinophils % (Manual) Basophils % (Manual) Abs Neuts (Manual) Lymphocytes # (Manual) Atyp Lymphs # (Manual) Monocytes # (Manual) Eosinophils # (Manual) Basophils # (Manual) Platelet Estimate Plt Morphology Comment RBC Morphology Polychromasia Macrocytosis Smear Tech's Comments Anion Gap Estim Creat Clear Calc Estimated GFR Random Glucose Calcium Magnesium Total Bilirubin AST ALT Alkaline Phosphatase Total Protein Albumin Lipase Urine Color Urine Appearance Urine pH Ur Specific [place] Urine Protein Urine Glucose (UA) Urine Ketones Urine Blood Urine Nitrite Ur Leukocyte Esterase Urine RBC Urine WBC Ur Squamous Epith Cells Urine Bacteria Hyaline Casts Stool Occult Blood C. difficile Tox B Gene 02/18/25 02/18/25 02/18/25 02:17 02:17 02:17 MCV MCH MCHC RDW 15.3 Plt Count Cancelled 295 MPV Cancelled 8.9 L Immature Gran % (Auto) 0.9 H Neut % (Auto) 48.1 Lymph % (Auto) 44.2 H Ocean % (Auto) 4.6 Eos % (Auto) 1.7 Baso % (Auto) 0.5 Lymph # (Auto) 5.9 H Ocean # (Auto) 0.6 Eos # (Auto) 0.2 Baso # (Auto) 0.1 Abs Immat Gran (auto) 0.12 H Absolute Neuts (auto) 6.5 Absolute Nucleated RBC Cancelled Nucleated RBC % (auto) Neutrophils % (Manual) Band Neutrophils % Lymphocytes % (Manual) Atypical Lymphs % (Man) Monocytes % (Manual) Eosinophils % (Manual) Basophils % (Manual) Abs Neuts (Manual) Lymphocytes # (Manual) Atyp Lymphs # (Manual) Monocytes # (Manual) Eosinophils # (Manual) Basophils # (Manual) Platelet Estimate Plt Morphology Comment RBC Morphology Polychromasia Macrocytosis Smear Tech's Comments Anion Gap Estim Creat Clear Calc Estimated GFR Random Glucose Calcium Magnesium Total Bilirubin AST ALT Alkaline Phosphatase Total Protein Albumin Lipase Urine Color Urine Appearance Urine pH Ur Specific [place] Urine Protein Urine Glucose (UA) Urine Ketones Urine Blood Urine Nitrite Ur Leukocyte Esterase Urine RBC Urine WBC Ur Squamous Epith Cells Urine Bacteria Hyaline Casts Stool Occult Blood C. difficile Tox B Gene 02/18/25 02/18/25 02/18/25 02:17 02:17 02:27 MCV MCH MCHC RDW Plt Count MPV Immature Gran % (Auto) Neut % (Auto) Lymph % (Auto) Ocean % (Auto) Eos % (Auto) Baso % (Auto) Lymph # (Auto) Ocean # (Auto) Eos # (Auto) Baso # (Auto) Abs Immat Gran (auto) Absolute Neuts (auto) Absolute Nucleated RBC 0.000 Nucleated RBC % (auto) Cancelled 0.0 Neutrophils % (Manual) Band Neutrophils % Lymphocytes % (Manual) Atypical Lymphs % (Man) Monocytes % (Manual) Eosinophils % (Manual) Basophils % (Manual) Abs Neuts (Manual) Lymphocytes # (Manual) Atyp Lymphs # (Manual) Monocytes # (Manual) Eosinophils # (Manual) Basophils # (Manual) Platelet Estimate Plt Morphology Comment RBC Morphology Polychromasia Macrocytosis Smear Tech's Comments Anion Gap Estim Creat Clear Calc Estimated GFR Random Glucose Calcium Magnesium Total Bilirubin AST ALT Alkaline Phosphatase Total Protein Albumin Lipase Urine Color Yellow Urine Appearance Clear Urine pH 7.0 Ur Specific [place] >= 1.030 H Urine Protein Trace Urine Glucose (UA) Negative Urine Ketones Trace Urine Blood Negative Urine Nitrite Negative Ur Leukocyte Esterase Negative Urine RBC 0-2 Urine WBC 0-5 Ur Squamous Epith Cells 0-2 Urine Bacteria None Seen Hyaline Casts 0-2 Stool Occult Blood C. difficile Tox B Gene Assessment and Plan (1) Occult GI bleeding: Status: Acute (2) Nicotine dependence, cigarettes, uncomplicated: Status: Acute Plan Patient is a 50-year-old female with a past medical history significant for diverticulitis with subsequent colectomy, back pain, migraines, who presented to the ED due to nausea, fatigue, headache and melena. She reports 3 episodes over the last 2 days, 1 larger episode. Occult GI bleed - WBC 13.4, afebrile, vital signs stable, no infection identified - recent steroid use - C diff negative - GI panel pending - fecal occult blood test positive - hemoglobin 11.4, hematocrit 31.8 down from 12.3/31.3 yesterday - CT angio abdominal pelvis negative for acute bleed - pantoprazole 40mg IV BID - NPO pending GI evaluation - GI consult - monitor CBC and BMP Tobacco use disorder - denies nicotine replacement - smoking cessation discussed Med rec pending DNI, would like CPR, no medication intervention for resuscitation VTE prophylaxis: Pneumoboots Patient with a occult GI bleed, requiring admission for at least 2 midnights stay for GI consultation and monitoring. Quality Stroke Does the patient have a stroke diagnosis?: No VTE Prior VTE?: No VTE Risk Level:: Medical - moderate - high VTE Device Contraindication: N/A - Device Ordered VTE Drug Contraindication: Treatment Not Indicated
[2025-02-18] MEDS: Lactated Ringers 1,000 ML 80 ML IVCONT (04:55)
[2025-02-18 06:10] LABS: Anion Gap 10 (12-20); Blood Urea Nitrogen 15 mg/dL (9-16); Calcium 8.0 mg/dL (8.4-10.2); Carbon Dioxide 24 mmol/L (22-29); Chloride 112 mmol/L (96-108); Creatinine Clr Calc Pharmacy 102.1; Estimated Glomerular Filt Rate > 60; Potassium 4.1 mmol/L (3.3-5.1); Sodium 142 mmol/L (135-145)
[2025-02-18 06:29] VITALS: BP 127/51; PULSE 69; RESP 18; O2SAT 97
[2025-02-18] MEDS: oxyCODONE HCl Immed Release 5 MG TABLET PO ×2 (07:32→19:25)
[2025-02-18 08:28] VITALS: BMI 30.5
[2025-02-18 08:38] VITALS: BP 115/56; PULSE 74; RESP 16; TEMP 36.2; O2SAT 100
[2025-02-18 10:03] LABS: Hematocrit 33.9 % (37.0-47.0); Hemoglobin 11.4 g/dl (12.0-16.0); Mean Corpuscular HGB Conc 33.6 g/dl (31.0-35.0); Mean Corpuscular Hemoglobin 31.6 pg (27.0-33.0); Mean Corpuscular Volume 93.9 fL (80.0-98.0); NRBC Abs Auto 0.000 X10*3/uL (0.0-0.012); NRBC Pct Auto 0.0 /100WBC (0.0-0.2); Platelet Count 313 X10*3/uL (160-400); Red Blood Count 3.61 X10*6/uL (4.20-5.50); White Blood Count 10.9 X10*3/uL (4.8-10.8)
[2025-02-18 10:04] LABS: E. coli EAEC Not Detected (Not Detect.); E. coli EPEC Not Detected (Not Detect.); E. coli ETEC Not Detected (Not Detect.); E. coli STEC Not Detected (Not Detect.); Shigella sp./EIEC Not Detected (Not Detect.)
--- NOTE | 2025-02-18 10:06 | PC.NURSE ---
Pt own Narcotic brought to pharmacy for storage.
--- NOTE | 2025-02-18 10:57 | PHA.MEDREC ---
Addendum entered by Thuy Gillespie RPh 02/18/25 11:17: reviewed by [facility]. Original Note: Pharmacy Consult ? Medication Reconciliation Pharmacy has completed the medication reconciliation. Spoke with patient to confirm. She started the methylprednisolone taper on Thursday, last took yesterday, her last dose would be today (4 mg). She did not start duloxetine rx. She is no longer taking omeprazole. hydroxyzine, benadryl, and tramadol.
--- NOTE | 2025-02-18 12:13 | P.CNGI_ITS ---
History of Present Illness Data of Consult Service Date: 02/18/25 Requesting physician: Dannielle Diaz Primary Care Provider: Rudy Barth PA-C [facility] Reason for consult: GIB This is a 50-year-old female past medical history of complicated diverticulitis status post sigmoid resection (follows with Dr Emory MALAGON), migraines, who presented to the hospital last night for fatigue, nausea and blood in stool. Patient reports that for the past couple of days, she has been having increased abdominal cramping, nausea and loose stools with chills. She reports them as green/black. By yesterday, she was feeling more weak, lethargic and dehydrated and therefore presented to the emergency room. No sick contacts. Does not report any history of eating food from outside. Has not had any further bowel movements since this morning. No further nausea, in fact requesting p.o. diet. She does not take any blood thinners. Does take ibuprofen on a regular basis at least 3 to 4 times a week. Also smokes 1 and half pack per day. Last colonoscopy was at least 3 years ago, but reports she is due for one. Stable vitals noted since admission. Labs with hemoglobin of 11.4 and hematocrit of 31.8, lower than her baseline of 13.7. Chem 7 with normal BUN to creatinine ratio. Normal LFTs. CT abdomen pelvis with and without IV contrast shows normal small and large intestine with diverticulosis. Hepatomegaly. Review of Systems 2 Review of Systems: Yes all other systems are reviewed and are negative PMFSH Past Medical History Medical History Nicotine dependence, cigarettes, uncomplicated Ankle pain, left Obesity Restless leg syndrome Migraine Anxiety Fibromyalgia Family History Family History Father CVD (cardiovascular disease) Myocardial infarction Mother Chronic mental illness Dementia Myocardial infarction, Onset Age: 40 Seizure Sister In good health Son In good health Maternal Aunt Breast CA Paternal Aunt Breast CA Other Mental health disorder Surgical History Surgical History H/O rectal polypectomy History of surgery History of hernia repair History of wisdom tooth extraction History of tonsillectomy History of umbilical hernia repair H/O LEEP History of colectomy Social History Social History Household Members: None Household Members Other:: roommate Housing: Other Housing Other:: Hotel. Do you presently have visiting nurse or other home services: No Unable to assess alcohol history related to: Unknown Alcohol intake: never Patient Tobacco Use Status: Current everyday Tobacco user Tobacco use type: Cigarette Cigarettes Per Day: 1 Years Smoked: (onset 12yo, 1/2-3/4ppd x 38yrs, 25pyh) Smoked in Last 30 Days: Yes e-Cigarette/Vaping Use: Never Used Patient Given Instructions on How to Stop Smoking: No (Denied interest in quitting.) Second Hand Smoke Exposure: Yes Use of substances other than those prescribed or required for medical reasons: No Substance Use Type: Marijuana Have you been hit, kicked, punched, or otherwise hurt by someone within the past year? If so, by whom?: No Do you feel safe in your current relationship?: No Current Relationship Is there a partner from a previous relationship who is making you feel unsafe now?: No Are you made to feel afraid or neglected: No Scientology Healthcare Practices: Wiccan. Advance Directives: Yes Advance Directives on File: Yes Advance Directives Date on File: 09/17/22 Do you have a plan to hurt others: No Plan Recently lost weight without trying: No Eating poorly because of decreased appetite: No Nutrition Risks: No Nutritional Risk Patient : No : No service: No Current occupational status: disabled Cognitive needs: No Hearing needs: No Vision needs: No Meds Allergies Allergy/AdvReac Type Severity Reaction Status Date / Time topiramate (From TOPAMAX) Allergy Mild NAUSEA & Verified 02/17/25 19:16 VOMITING divalproex sodium (From AdvReac Unknown NAUSEA & Verified 02/17/25 19:16 DEPAKOTE) VOMITING Active Medications: Current Medications Acetaminophen (Acetaminophen 325 Mg Tablet) 975 mg PO Q6H PRN PRN Reason: Pain, Mild 1-3,fever,headache Amitriptyline HCl (Amitriptyline Hcl 25 Mg Tablet) 25 mg PO BEDTIME PACO Calcium Carbonate (Calcium Carbonate 750 Mg Tab.Chew) 750 mg PO Q4H PRN PRN Reason: Heartburn Cyclobenzaprine HCl (Cyclobenzaprine Hcl 10 Mg Tablet) 10 mg PO DAILY PRN PRN Reason: Muscle Spasm Cyclobenzaprine HCl (Cyclobenzaprine Hcl 10 Mg Tablet) 10 mg PO DAILY [facility] Gabapentin (Gabapentin 600 Mg Tablet) 600 mg PO BID [facility] Lactated Ringer's (Lr) 1,000 mls @ 80 mls/hr IVCONT .[id number] [facility] Stop: 02/18/25 16:29 Last Admin: 02/18/25 04:55 Dose: 80 mls/hr Lidocaine (Lidocaine 4 % Patch Adh..Patch) 1 patch TRANSDERMA Q24H PRN PRN Reason: Pain Magnesium Hydroxide (Milk Of Magnesia 30 Ml Oral.Susp) 30 ml PO DAILY PRN PRN Reason: Constipation Melatonin (Melatonin 3 Mg Tablet) 6 mg PO BEDTIME PRN PRN Reason: Insomnia Multivitamins/Vitamin C (Multivitamin Tablet) 1 tab PO DAILY [facility] Ondansetron HCl (Ondansetron Hcl 4 Mg/2 Ml Vial) 4 mg IVPUSH Q8H PRN PRN Reason: Nausea and Vomiting Oxycodone HCl (Oxycodone Hcl Immed Release 5 Mg Tablet) 5 mg PO Q6H PRN PRN Reason: Pain, Severe (Pain Scale 7-10) Last Admin: 02/18/25 07:32 Dose: 5 mg Pantoprazole Sodium (Pantoprazole Sodium 40 Mg/10 Ml Vial) 40 mg IVPUSH BID@0630,1630 [facility] Last Admin: 02/18/25 06:21 Dose: 40 mg Paroxetine HCl (Paroxetine Hcl 20 Mg Tablet) 20 mg PO DAILY PRN PRN Reason: Anxiety Sodium Chloride (0.9 % Sodium Chloride Flush 3 Ml Syringe) 3 ml IVFLUSH QSHIFT [facility] Last Admin: 02/18/25 07:03 Dose: Not Given Tramadol HCl (Tramadol Hcl 50 Mg Tablet) 100 mg PO Q6H PRN PRN Reason: Pain, Moderate(Pain Scale 4-6) Valacyclovir HCl (Valacyclovir Hcl 500 Mg Tablet) 500 mg PO DAILY [facility] Home Medications ?Medication ?Instructions ?Recorded ?Confirmed ?Last Taken ?Type butalbital 50 mg-acetaminophen 325 1 cap PO Q6H PRN He lilian 02/26/23 02/18/25 04/18/24 History mg-caffeine 40 mg-codeine 30 mg cap multivitamin 1 tab PO DAILY 04/19/24 08/0 09/1302/17/25 History paroxetine HCl 20 mg tablet 20 mg PO DAILY PRN Anxiety 10/25/24 02/18/25 Unknown History amitriptyline 25 mg tablet 25 mg PO BEDTIME 01/19/25 0 02/18/25 Unknown History acetaminophen 500 mg tablet 500 mg PO Q6H PRN pain or fever 02/18/25 02/18/25 Unknown History cyclobenzaprine 10 mg tablet 10 mg PO DAILY 02/18/25 0 02/18/25 Unknown History cyclobenzaprine 10 mg tablet 10 mg PO DAILY PRN muscle spasm 02/18/25 02/18/25 Unknown History diclofenac sodium 75 mg 75 mg PO BID 02/18/2502/17/25 History tablet,delayed release ibuprofen 800 mg tablet 800 mg PO TID PRN Pain 02/1802/18/25 Unknown History lidocaine 5 % topical patch 1 patch topical Q24H PRN P ain 02/18/25 02/18/25 Unknown History (DermacinRx Lidocan) methylprednisolone 4 mg tablets in 4 mg PO DAILY 02/1802/18/25 02/17/25 History a dose pack valacyclovir 500 mg tablet 500 mg PO DAILY 02/18/2502/17/25 History Physical Exam 2 Exam: Exam: Middle-aged female No acute distress Abdomen, soft, nontender, nondistended No respiratory distress No lower extremity edema Vital Signs: Vital Signs: Last Vital Signs Temp 97.1 F 02/18/25 08:38 Pulse 74 02/18/25 08:38 Resp 16 02/18/25 08:38 BP 115/56 L 02/18/25 08:38 Pulse Ox 100 02/18/25 08:38 O2 Del Method Room Air 02/18/25 08:38 BMI result Body Mass Index 29.5 Results Labs 02/18/25 09:11 02/18/25 05:49 Labs: Short CBC 02/17/25 02/18/25 02/18/25 Range/Units 19:21 02:17 02:17 WBC 16.2 H Cancelled 13.4 H (4.8-10.8) X10*3/uL Hgb 12.3 Cancelled (12.0-16.0) g/dl Hct 34.3 L (37.0-47.0) % Plt Count 329 (160-400) X10*3/uL 02/18/25 02/18/25 02/18/25 Range/Units 02:17 02:17 02:17 WBC (4.8-10.8) X10*3/uL Hgb 11.4 L (12.0-16.0) g/dl Hct Cancelled 31.8 L (37.0-47.0) % Plt Count Cancelled 295 (160-400) X10*3/uL 02/18/25 Range/Units 09:11 WBC 10.9 H (4.8-10.8) X10*3/uL Hgb 11.4 L (12.0-16.0) g/dl Hct 33.9 L (37.0-47.0) % Plt Count 313 (160-400) X10*3/uL BMP 02/17/25 02/18/25 19:21 05:49 Sodium 141 142 Potassium 3.6 4.1 Chloride 109 H 112 H Carbon Dioxide 25 24 BUN 14 15 Creatinine 0.64 0.61 Calcium 8.9 8.0 L D Liver Function 02/17/25 Range/Units 19:21 Total Bilirubin 0.1 (0.0-1.0) mg/dL AST 25 (5-31) U/L ALT 26 (0-31) U/L Alkaline Phosphatase 59 (39-117) U/L Albumin 4.2 (3.5-5.0) g/dL Urine 02/18/25 Range/Units 02:27 Urine Color Yellow Urine Appearance Clear Urine pH 7.0 (5.0-9.0) Ur Specific [place] >= 1.030 H (1.005-1.025) Urine Protein Trace (Neg-Trace) mg/dL Urine Glucose (UA) Negative (Negative) mg/dL Assessment and Plan (1) Nausea vomiting and diarrhea: Status: Acute (2) Abdominal pain: Qualifiers: Abdominal location: epigastric Qualified Code(s): R10.13 - Epigastric pain Status: Acute Plan Overall presentation of acute onset of abdominal pain, with nausea, vomiting and diarrhea most consistent with infectious illness with bloody diarrhea. No colitis noted on CT scan. Lipase and LFTs normal. Mild drop in H&H which became more pronounced after 2 L of volume resuscitation. Plan: -overall has improved since coming in -if clinical trajectory continues to improve can pursue endoscopic evaluation as outpatient (as was being already set up for her at [facility]) -if has persistent diarrhea and/or drop in H&H, will proceed with EGD/colonoscopy as inpatient -recheck CBC and BMP tomorrow a.m. -okay for diet as tolerated today Thank you for allowing me to participate in her care. Please do not hesitate with questions or concerns. Procedures Date of Service Date of Service: 02/18/25
--- NOTE | 2025-02-18 15:07 | MHC.CM.PN ---
PT REPORTS SHE LIVES ALONE AND IS INDEPENDENT WITH CARE SHE HAS NO DME AND NO SERVICES COPY OF HCP REQUESTED PCP: SHANITA MARTIN IMM DELIVERED DCP: HOME NO SERVICES VIA PRIVATE TRANSPORT
[2025-02-18 16:00] VITALS: BP 112/52; PULSE 78; RESP 12; TEMP 37.1; O2SAT 98
[2025-02-18] MEDS: BUTALBITAL PO (16:09)
[2025-02-18] MEDS: ACETAMINOPHEN PO (16:09)
[2025-02-18] MEDS: CAFFEINE PO (16:09)
[2025-02-18] MEDS: CODEINE PO (16:09)
[2025-02-18] MEDS: 0.9 % Sodium Chloride Flush 3 ML SYRINGE IVFLUSH (19:32)
[2025-02-18 19:48] VITALS: BP 102/52; PULSE 82; RESP 18; TEMP 36.5; O2SAT 95
[2025-02-19 03:12] VITALS: BP 106/64; PULSE 54; RESP 18; TEMP 36.2; O2SAT 95
[2025-02-19 06:22] LABS: MANUAL DIFF FLAG NO
[2025-02-19 06:24] LABS: Hematocrit 35.3 % (37.0-47.0); Hemoglobin 12.1 g/dl (12.0-16.0); Imm Gran Abs Auto 0.07 X10*3/uL (0.00-0.03); Imm Gran Pct Auto 0.8 % (0.0-0.4); Lymphocytes Absolute Auto 3.9 X10*3/uL (1.2-4.9); Mean Corpuscular HGB Conc 34.3 g/dl (31.0-35.0); Mean Corpuscular Hemoglobin 31.9 pg (27.0-33.0); Mean Corpuscular Volume 93.1 fL (80.0-98.0); NRBC Abs Auto 0.000 X10*3/uL (0.0-0.012); NRBC Pct Auto 0.0 /100WBC (0.0-0.2); Platelet Count 301 X10*3/uL (160-400); Red Blood Count 3.79 X10*6/uL (4.20-5.50); White Blood Count 9.3 X10*3/uL (4.8-10.8)
[2025-02-19 06:40] LABS: Anion Gap 11 (12-20); Blood Urea Nitrogen 11 mg/dL (9-16); Calcium 8.4 mg/dL (8.4-10.2); Carbon Dioxide 27 mmol/L (22-29); Chloride 108 mmol/L (96-108); Creatinine Clr Calc Pharmacy 115.3; Estimated Glomerular Filt Rate > 60; Potassium 3.6 mmol/L (3.3-5.1); Sodium 142 mmol/L (135-145)
[2025-02-19 08:00] VITALS: BP 122/53; PULSE 79; RESP 16; TEMP 36.7; O2SAT 96
[2025-02-19] MEDS: oxyCODONE HCl Immed Release 5 MG TABLET PO (08:03)
--- NOTE | 2025-02-19 08:33 | PM.DS ---
DS: Providers Provider Date of Service: 02/19/25 Date of admission: 02/18/25 03:55 Date of discharge: 02/19/25 Primary care physician: Rudy Barth PA-C Consults: 02/18/25 04:00 Consult to Gastroenterology Routine Consulting Provider: Olga Wilder Reason for consultation: melena, +FOBT Has provider been notified: No DS: Diagnosis Discharge Diagnosis (1) Nausea vomiting and diarrhea: Status: Acute (2) Abdominal pain: Status: Acute DS: Summary Hospital Course Hospital Course: HPI as per admitting provider:Patient is a 50-year-old female with a past medical history significant for diverticulitis with subsequent colectomy, back pain, migraines, who presented to the ED due to nausea, fatigue, headache and melena. She reports 3 episodes over the last 2 days, 1 larger episode. She denies any abdominal pain. She was taking steroids at the end of January due to her back pain and experience loose stools for about a week afterwards. She reports that she started taking something [id number] for diarrhea, denies using Pepto-Bismol. She denies any other symptoms including chest pain, shortness of breath, urinary symptoms. Hospital course: Patient was admitted with cardiac monitoring and gastroenterology consulted. CT angio abdomen/pelvis without evidence of acute bleed. Patient's hemoglobin remained stable throughout hospital course. Her symptoms including black stools completely resolved prior to discharge. No further episodes of abdominal pain, nausea and vomiting and she was able to tolerate regular diet prior to discharge. Gastroenterology was consulted and patient's symptoms were thought to be due to infectious illness leading to bloody diarrhea. GI panel negative during hospital course. No colitis noted on CAT scan. Patient stable to be discharged with outpatient endoscopic evaluation at [facility]. Status at Discharge Functional status at discharge: independent ambulation Overall status at discharge: patient is back to baseline Time Attestation Discharge Coordination Time (in mins): Thirty-five Quality: Safe Use of Opioids Does Pt have an Active Cancer Diagnosis on the Problem List?: No Quality: Stroke Does the patient have a stroke diagnosis?: No Physical Exam Exam: Exam: Middle-aged female lying in bed in no distress Neck supple, no JVD Regular rate and rhythm, S1-S2 heard Regular breath sounds bilaterally, no wheezing or crackles appreciated Abdomen soft nontender, no guarding, no rigidity Patient is awake, alert and oriented to self, place, time and person ; no focal motor deficit Psych: Normal mood No pedal edema Vital Signs: Vital Signs: Last Vital Signs Temp 98.0 F 02/19/25 08:00 Pulse 79 02/19/25 08:00 Resp 16 02/19/25 08:00 BP 122/53 L 02/19/25 08:00 Pulse Ox 96 02/19/25 08:00 O2 Del Method Room Air 02/19/25 08:00 BMI result Body Mass Index 30.5 DS: Data Data Completed and Pending Completed studies during hospitalization [Text1]: Procedures Drainage of Right Hand, Open Approach (04/19/24) Labs on day of discharge: Laboratory Results - last 24 hr 02/17/25 02/18/25 02/19/25 21:38 09:11 05:36 WBC 10.9 H 9.3 RBC 3.61 L 3.79 L Hgb 11.4 L 12.1 Hct 33.9 L 35.3 L MCV 93.9 93.1 MCH 31.6 31.9 MCHC 33.6 34.3 RDW 15.2 15.0 Plt Count 313 301 MPV 9.5 9.2 L Immature Gran % (Auto) 0.8 H Neut % (Auto) 49.8 Lymph % (Auto) 42.3 H [place] % (Auto) 4.2 Eos % (Auto) 2.0 Baso % (Auto) 0.9 Lymph # (Auto) 3.9 [place] # (Auto) 0.4 Eos # (Auto) 0.2 Baso # (Auto) 0.1 Abs Immat Gran (auto) 0.07 H Absolute Neuts (auto) 4.6 Absolute Nucleated RBC 0.000 0.000 Nucleated RBC % (auto) 0.0 0.0 Sodium 142 Potassium 3.6 Chloride 108 Carbon Dioxide 27 Anion Gap 11 L BUN 11 Creatinine 0.55 Estim Creat Clear Calc 115.3 Estimated GFR > 60 Random Glucose 83 Calcium 8.4 Stl C. cayetanensis PCR Not Detected Stool Rotavirus A PCR Not Detected Stl Adenov F 40/41 PCR Not Detected Stool Astrovirus (PCR) Not Detected Stool Campylobacter PCR Not Detected Stool Cryptosporidium PCR Not Detected Stl Sh Tox Pr E STEC PCR Not Detected Stool E coli O157 PCR Not applicable Stl Enterotoxigenic E PCR Not Detected Stool EPEC (PCR) Not Detected Stool EAEC (PCR) Not Detected Stl E. histolytica PCR Not Detected Stool Giardia Lamblia PCR Not Detected Stl P. shigelloides PCR Not Detected Stool Salmonella PCR Not Detected Stool Sapovirus (PCR) Not Detected Stl Shigella/EIEC PCR Not Detected St Y.enterocolitica PCR Not Detected Stool Vibrio (PCR) Not Detected Stl Vibrio cholerae PCR Not Detected Stl Norovirus GI/GII PCR Not Detected Imaging Chest x-ray: Radiologist's impression: CT angio abdomen and pelvis: MPRESSION: 1. No CT evidence for active GI bleeding. Evaluation for active arterial bleeding is mildly limited due to suboptimal contrast opacification of the arterial system on the arterial phase images. 2. Hepatomegaly. 3. Nonobstructing left renal calculi with a possible tiny nonobstructing calculus at the inferior pole of the right kidney. No hydronephrosis or hydroureter. 4. Colonic diverticulosis. No CT evidence for acute diverticulitis. 5. Low-attenuation 5.8 cm right adnexal cyst. Discharge Plan Discharge Anticipated Discharge Date/Time: 02/19/25 08:30 Patient Disposition: Home, Self-Care Discharge Diagnosis: Abdominal pain and nausea Referrals: Rudy Barth PA-C [Primary Care Provider, Internal Medicine] - 1 Week Discharge Medications: Continued gabapentin 600 mg tablet 600 mg PO BID 30 Days Qty: 60 0RF multivitamin Tablet 1 tab PO DAILY cyclobenzaprine 10 mg tablet 10 mg PO DAILY PRN (Reason: muscle spasm) valacyclovir 500 mg tablet 500 mg PO DAILY cyclobenzaprine 10 mg tablet 10 mg PO DAILY acetaminophen 500 mg tablet 500 mg PO Q6H PRN (Reason: pain or fever) Rx Instructions: Take 1 tablet every 6 hours as needed for pain/fever. Do not take in combination with Fioricet. lidocaine [DermacinRx Lidocan] 5 % adhesive patch,medicated 1 patch topical Q24H PRN (Reason: Pain) Rx Instructions: leave on most painful area for up to 12 hrs [id number]-[id number] [id number] mg capsule 1 cap PO Q6H PRN (Reason: Headaches) paroxetine HCl 20 mg tablet 20 mg PO DAILY PRN (Reason: Anxiety) amitriptyline 25 mg tablet 25 mg PO BEDTIME Discontinued prednisone 20 mg tablet 60 mg PO DAILY 5 Days Qty: 15 0RF methylprednisolone [Medrol (Geovanny)] 4 mg tablets,dose pack 4 mg PO QAM Qty: 21 0RF Rx Instructions: Take per package instructions ibuprofen 800 mg tablet 800 mg PO TID PRN (Reason: Pain) diclofenac sodium 75 mg tablet,delayed release (DR/EC) 75 mg PO BID methylprednisolone 4 mg tablets,dose pack 4 mg PO DAILY Patient Comments: Patient started dose pack on Tuesday 02/13, last taken yesterday 02/17. Last day is today 02/18 4 mg once. Rx Instructions: DOSPAK diclofenac sodium 75 mg tablet,delayed release (DR/EC) 75 mg PO BID Discharge Orders: Discharge Order (Routine); Ordered 02/19/25 Ordered By: Danielle Mclain Diet: Advance to usual diet Activity on Discharge: As tolerated Stand Alone Forms: Patient Portal Discharge page Print Language: [place] Care Plan Goals: Follow-up with PCP within 1 week with repeat hemoglobin Follow-up with [facility] for outpatient endoscopy Health Concerns: Abdominal pain, diarrhea Plan of Treatment: Avoid NSAIDs Assessment: As above Patient Instructions: Gastrointestinal Bleeding (DC)
[2025-02-19 08:56] VITALS: BP 110/71; PULSE 94; RESP 16; TEMP 36.8; O2SAT 94
--- NOTE | 2025-02-19 10:12 | MHC.CM.PN ---
PT TO DC HOME TODAY WITH NO SERVICES VIA PRIVATE TRANSPORT
--- NOTE | 2025-02-19 11:34 | PM.GIPN ---
Subjective Subjective Date of Service: 02/19/25 Interval History: See and evaluated at bedside. Getting ready for discharge. Reports no further loose bowel movements. Tolerating diet. She reports upcoming ovarian surgery. Critical Care Time (minutes): 0 Physical Exam Exam: Exam: No acute distress Abdomen soft, nondistended Alert and oriented x3, normal gait Vital Signs: Vital Signs: Last Vital Signs Temp 98.3 F 02/19/25 08:56 Pulse 94 02/19/25 08:56 Resp 16 02/19/25 08:56 BP 110/71 02/19/25 08:56 Pulse Ox 94 02/19/25 08:56 O2 Del Method Room Air 02/19/25 08:56 BMI result Body Mass Index 30.5 Objective Data Labs 02/19/25 05:36 02/19/25 05:36 Labs: Laboratory Results - last 24 hr 02/19/25 05:36 WBC 9.3 RBC 3.79 L Hgb 12.1 Hct 35.3 L MCV 93.1 MCH 31.9 MCHC 34.3 RDW 15.0 Plt Count 301 MPV 9.2 L Immature Gran % (Auto) 0.8 H Neut % (Auto) 49.8 Lymph % (Auto) 42.3 H [place] % (Auto) 4.2 Eos % (Auto) 2.0 Baso % (Auto) 0.9 Lymph # (Auto) 3.9 [place] # (Auto) 0.4 Eos # (Auto) 0.2 Baso # (Auto) 0.1 Abs Immat Gran (auto) 0.07 H Absolute Neuts (auto) 4.6 Absolute Nucleated RBC 0.000 Nucleated RBC % (auto) 0.0 Sodium 142 Potassium 3.6 Chloride 108 Carbon Dioxide 27 Anion Gap 11 L BUN 11 Creatinine 0.55 Estim Creat Clear Calc 115.3 Estimated GFR > 60 Random Glucose 83 Calcium 8.4 Procedures Date of Service Date of Service: 02/19/25 Progress Note: A&P Assessment and plan (1) Nausea vomiting and diarrhea: Status: Acute (2) Abdominal pain: Status: Acute Plan Has clinically improved. Tolerating diet. No further diarrhea. Patient is due for a colonoscopy. States that she prefers to get this done through [facility]. Her [employer]Y [employer] EMT surgeon is in touch with [facility] gastroenterology to help coordinate the colonoscopy prior to her pelvic surgery. She was encouraged to call our office if needed. Time Spent With Patient Time: Total time managing care of this patient today ____ minutes. Quality Stroke Does the patient have a stroke diagnosis?: No VTE Prior VTE?: No VTE Risk Level:: Medical - moderate - high VTE Device Contraindication: N/A - Device Ordered VTE Drug Contraindication: Treatment Not Indicated
== END 2025-02-19 09:41 | disposition home or self-care (01) | DRG 392 ==
LOC: HO.ED 02-18 03:49 → HO.EDOVER 02-18 05:41 → HO.S3 02-18 07:29
PROVIDERS: Emergency Medicine; Admitting Provider Physician Assistant; Emergency Provider Emergency Medicine; PCP Physician Assistant; Visit Provider Student in an Organized Health Care Education/Training Program
DX: R10.9 Unspecified abdominal pain (principal); F17.210 Nicotine dependence, cigarettes, uncomplicated; Z71.6 Tobacco abuse counseling; R11.2 Nausea with vomiting, unspecified; Z79.899 Other long term (current) drug therapy
CPT/HCPCS: 36415; 74178; 80048; 80053; 81001; 82272; 83690; 83735; 85007; 85025; 85027; 87493; 87507; 99285; J2270; J2470; J7120; Q9967

== ENCOUNTER → 2025-02-17 22:09 | Outpatient (BNV) | payer MEDICARE, MEDICAID, SELFPAY | PROVIDERS: Emergency Provider Emergency Medicine; PCP Physician Assistant; Visit Provider Radiology Diagnostic Radiology | DX: N83.291 Other ovarian cyst, right side (principal) | CPT/HCPCS: 74178 ==

== ENCOUNTER → 2025-02-18 03:55 | Outpatient (BNV) | payer MEDICARE, MEDICAID, SELFPAY | PROVIDERS: Admitting Provider Physician Assistant; Emergency Provider Emergency Medicine; PCP Physician Assistant; Visit Provider Physician Assistant | DX: R11.2 Nausea with vomiting, unspecified (principal); R19.7 Diarrhea, unspecified; R10.13 Epigastric pain | CPT/HCPCS: 99223; 99239 ==

== ENCOUNTER → 2025-02-18 03:55 | Outpatient (BNV) | payer MEDICARE, MEDICAID, SELFPAY | PROVIDERS: Admitting Provider Physician Assistant; Emergency Provider Emergency Medicine; PCP Physician Assistant; Visit Provider Internal Medicine | DX: R11.2 Nausea with vomiting, unspecified (principal); R19.7 Diarrhea, unspecified; R10.13 Epigastric pain | CPT/HCPCS: 99222; 99232 ==

== ENCOUNTER 2025-03-03 08:34 | Outpatient (AMB) | payer MEDICARE, MEDICAID, SELFPAY ==
--- NOTE | 2025-03-03 08:36 | A.OFFPC_ITS ---
Vital Signs 03/03/25 08:39 Weight 159 lb 6 oz BP 122/78 Blood Pressure Location Lt brachial Position Sitting Pulse 86 Pulse Source Pulse Oximeter Pulse Oximetry (%) 98 Oxygen Delivery Method Room Air Intake Visit Reasons: [facility] 02/19 Black stool [employer] Work[employer] Required: No Accompanied by: Self / Same As Patient Allergies topiramate (From TOPAMAX) Allergy (Mild, Verified 03/03/25 08:41) NAUSEA & VOMITING divalproex sodium (From DEPAKOTE) Adverse Reaction (Unknown, Verified 03/03/25 08:41) NAUSEA & VOMITING Tobacco use date assessed: 03/03/25 Dental Screening Dental Screen Date: 03/03/25 Did you have a dental visit in the last 12 months?: No Did you have a dental problem in the last 6 months where you did not have access to dental care?: No Was dental information given to patient?: No HPI HPI Comments History of Present Illness Details 50 y/o Female patient who presents to [facility] today for HDF. She [place] [facility] [place] 02[place] for an evaluation and treatment of GI Bleed. Imaging and Blood work was negative. She is currently being managed by [facility] and Colorectal surgeons. Today reports no more Black Stools. Pt reports rash all over her body from BedBugs. She is currently homeless and lives in her Car. Two nights ago she stayed at a place that was infested by BedBugs. [facility] Medical History (Updated 03/03/25 @ 09:40 by Linsey Lemus NP) Bedbug bite Diarrhea of presumed infectious origin Nicotine dependence, cigarettes, uncomplicated Ankle pain, left Obesity Restless leg syndrome Migraine Anxiety Fibromyalgia Surgical History H/O rectal polypectomy History of surgery History of hernia repair History of wisdom tooth extraction History of tonsillectomy History of umbilical hernia repair H/O LEEP History of colectomy Family History Father CVD (cardiovascular disease) Myocardial infarction Mother Chronic mental illness Dementia Myocardial infarction, Onset Age: 40 Seizure Sister In good health Son In good health Maternal Aunt Breast CA Paternal Aunt Breast CA Other Mental health disorder Social History Household Members: None Household Members Other:: roommate Housing: Other Housing Other:: Hotel. Do you presently have visiting nurse or other home services: No Unable to assess alcohol history related to: Unknown Alcohol intake: never Patient Tobacco Use Status: Current everyday Tobacco user Tobacco use type: Cigarette Cigarettes Per Day: 1 Years Smoked: (onset 12yo, 1/2-3/4ppd x 38yrs, 25pyh) Packs per year/per ci.00 e-Cigarette/Vaping Use: Never Used Second Hand Smoke Exposure: Yes Substance Use Type: Marijuana Advance Directives Date on File: 09/17/22 service: No Current occupational status: disabled Cognitive needs: No Hearing needs: No Vision needs: No Questionnaire Thrive Questionnaire Date Thrive assessed: 03/03/25 SALOMON-7 AMB Questionnaire SALOMON-7 Date SALOMON - 7 assessed: 03/03/25 Source: Developed by Drs. Ayan Curiel, Brooke Alfaro, Reagan Veroinca and colleagues, with an educational cornelia from [employer]. Review of Systems Const All systems reviewed & are unremarkable except as noted in HPI and below Physical exam (Primary Care) Vital Signs: Last Vital Signs Pulse 86 03/03/25 08:39 BP 122/78 03/03/25 08:39 Pulse Ox 98 03/03/25 08:39 Oxygen Delivery Method Room Air 03/03/25 08:39 Tobacco/Smoking Status: Tobacco use Status Tobacco use date assessed 03/03/25 03/03/25 08:46 Patient Tobacco Use Status Current everyday Tobacco 03/03/25 08:46 Tobacco use type Cigarette 03/03/25 08:46 e-Cigarette/Vaping Use Never Used 03/03/25 08:46 Thrive Assessment: Date of Thrive Assessment Date Thrive assessed 03/03/25 03/03/25 08:46 Resp Auscultation: clear to auscultation bilaterally Cardio Heart sounds: S1 normal heart sound present and S2 normal heart sound present GI Palpation (GI): Soft to palpation and Tenderness to palpation present (GI) in the epigastrum and periumbilically Percussion: Yes normal to percussion Auscultation: normal bowel sounds Skin Other: Red Small Bumps; all over body. Coding Level of Care Code TCM Mod MDM <= 14 Days Diagnoses Gastrointestinal complaints R19.8 Bedbug bite, initial encounter W57.XXXA Encounter type: initial encounter Time Spent (min) 20 Assessment & Plan Assessment & Plan (1) Gastrointestinal complaints: Code(s): R19.8 - Other specified symptoms and signs involving the digestive system and abdomen Category: Medical Plan: Stable. Managed by GI (2) Bedbug bite: Code(s): W57.XXXA - Bitten or stung by nonvenomous insect and other nonvenomous arthropods, initial encounter Category: Medical Qualifiers: Encounter type: initial encounter Qualified Code(s): W57.XXXA - Bitten or stung by nonvenomous insect and other nonvenomous arthropods, initial encounter Plan: Ordered Treatment Advised to wash all her clothes and bedding in Hot water. Medications: New ibuprofen 400 mg PO Q8H 10 tabs 0RF pyrethrins-piperonyl butoxide 0.3-3.5 % Apply to dry infested areas; allow to remain on area for 10 minutes and then Wash area thoroughly with warm water and soap; Do not leave on longer than 10 minutes. Repeat treatment in 7 to 10 days. 237 mL 0RF W57.XXXA - Bitten or stung by nonvenomous insect and other nonvenomous arthropods, initial encounter
[2025-03-03 08:39] VITALS: BP 122/78; PULSE 86; O2SAT 98
== END 2025-03-03 09:11 | disposition home or self-care (01) ==
LOC: HO.HMCH 08:35
PROVIDERS: PCP Physician Assistant; Visit Provider Nurse Practitioner Family
DX: R19.8 Other specified symptoms and signs involving the digestive system and abdomen (principal); W57.XXXA Bitten or stung by nonvenomous insect and other nonvenomous arthropods, initial encounter

== ENCOUNTER → 2025-03-03 08:34 | Outpatient (BNVA) | payer MEDICARE, MEDICAID, SELFPAY | PROVIDERS: PCP Physician Assistant; Visit Provider Nurse Practitioner Family | DX: R19.8 Other specified symptoms and signs involving the digestive system and abdomen (principal); F41.9 Anxiety disorder, unspecified; G43.909 Migraine, unspecified, not intractable, without status migrainosus | CPT/HCPCS: 99495 ==

== ENCOUNTER 2025-03-05 00:19 | Emergency (ER) | payer MEDICARE, MEDICAID, SELFPAY ==
[2025-03-05 00:46] VITALS: BP 148/65; PULSE 80; RESP 20; TEMP 36.4; O2SAT 99; BMI 28.5
--- NOTE | 2025-03-05 02:34 | ED_ITS ---
HPI - General Adult General Chief complaint: Animal Bite Stated complaint: shingles? bed bugs? Time Seen by Provider: 03/05/25 02:10 Source: patient Mode of arrival: ambulatory Limitations: no limitations History of Present Illness ED Provider: Dr. Chelsea Mccoy HPI narrative: patient comes to the emergency room complaining of an itchy rash. Patient states that she was recently told that she may have but bugs. Patient states that she got rid of all her blankets, washed up everything in hot water. Patient is still having an itchy rash. Patient states that she found a new living arrangement. Patient denies any pain or fever. Patient states the rash is in upper and lower extremities and back. Patient states that she was given triamcinolone to help with the rash Related Data Home Medications ?Medication ?Instructions ?Recorded ?Confirmed butalbital 50 mg-acetaminophen 325 1 cap PO Q6H PRN He adaches 02/26/23 02/20/25 mg-caffeine 40 mg-codeine 30 mg cap multivitamin 1 tab PO DAILY 04/19/2411/11 paroxetine HCl 20 mg tablet 20 mg PO DAILY PRN Anxiety 10/25/24 02/20/25 amitriptyline 25 mg tablet 25 mg PO BEDTIME 01/19/25 0 02/20/25 acetaminophen 500 mg tablet 500 mg PO Q6H PRN pain or fever 02/18/25 02/20/25 cyclobenzaprine 10 mg tablet 10 mg PO DAILY 02/18/25 0 02/20/25 cyclobenzaprine 10 mg tablet 10 mg PO DAILY PRN muscle spasm 02/18/25 02/20/25 lidocaine 5 % topical patch 1 patch topical Q24H PRN P ain 02/18/25 02/20/25 (DermacinRx Lidocan) valacyclovir 500 mg tablet 500 mg PO DAILY 02/18/25 Previous Rx's ?Medication ?Instructions ?Recorded gabapentin 600 mg tablet 600 mg PO BID 30 days #60 ta bs 02/02/25 ibuprofen 400 mg tablet 400 mg PO Q8H #10 tabs 03/03 triamcinolone acetonide 0.1 % 1 appl topical BID #30 g jacey 03/03/25 topical cream diphenhydramine HCl 2 % topical 1 appl topical QID PRN itching 03/05/25 gel (Benadryl) #103 mL hydroxyzine HCl 25 mg tablet 25 mg PO TID PRN nausea a nd 03/05/25 vomiting #20 tabs Allergies Allergy/AdvReac Type Severity Reaction Status Date / Time topiramate (From TOPAMAX) Allergy Mild NAUSEA & Verified 03/05/25 00:49 VOMITING divalproex sodium (From AdvReac Unknown NAUSEA & Verified 03/05/25 00:49 DEPAKOTE) VOMITING Review of Systems Review of Systems: Constitutional : No Weight loss, No Fever, No Chills, No Night Sweats, No Fatigue, No Malaise ENT/Mouth : No Hearing loss, No Ear Pain, No Nasal Congestion, No Sinus Pain, No Hoarseness, No sore throat, No Rhinorrhea, No Swallowing Difficulty Eyes: No Eye Pain, No Swelling, No Redness, No Foreign Body, No Discharge, No Vision Changes Cardiovascular : No Chest Pain, No SOB, No Dyspnea on Exertion, No Orthopnea, No Edema, No Palpitations Respiratory : No Cough, No Sputum, No Wheezing, No Smoke Exposure, No Dyspnea Gastrointestinal : No Nausea, No Vomiting, No Diarrhea, No Constipation, No abdominal Pain, No Hematochezia, No Melena Genitourinary : no irregular bleeding, No Dysuria, No Urinary Frequency, No Hematuria, No Urinary Incontinence, No Urgency, No Flank Pain, No Urinary Flow Changes, No Hesitancy Musculoskeletal : No joint pain, No Myalgias, No Joint Swelling Skin : Complaining of an itchy rash in the extremities and back, recently diagnosed with bedbugs. Neuro : No Weakness, No Numbness, No Paresthesias, No Loss of Consciousness, No Dizziness, No Headache Psych : No Anxiety/Panic, No Depression, No SI/HI/AH/VH, No Social Issues, Heme/Lymph: No Bruising, No Bleeding,No Lymphadenopathy Endocrine : No Polyuria, No Polydipsia, No Temperature Intolerance PMFSH Past Medical History Medical History Bedbug bite Diarrhea of presumed infectious origin Nicotine dependence, cigarettes, uncomplicated Ankle pain, left Obesity Restless leg syndrome Migraine Anxiety Fibromyalgia Surgical History H/O rectal polypectomy History of surgery History of hernia repair History of wisdom tooth extraction History of tonsillectomy History of umbilical hernia repair H/O LEEP History of colectomy Family History Family History Father CVD (cardiovascular disease) Myocardial infarction Mother Chronic mental illness Dementia Myocardial infarction, Onset Age: 40 Seizure Sister In good health Son In good health Maternal Aunt Breast CA Paternal Aunt Breast CA Other Mental health disorder Social History Social History Household Members: None Household Members Other:: roommate Housing: Other Housing Other:: Hotel. Do you presently have visiting nurse or other home services: No Unable to assess alcohol history related to: Unknown Alcohol intake: never Patient Tobacco Use Status: Current everyday Tobacco user Tobacco use type: Cigarette Cigarettes Per Day: 1 Years Smoked: (onset 12yo, 1/2-3/4ppd x 38yrs, 25pyh) e-Cigarette/Vaping Use: Never Used Second Hand Smoke Exposure: Yes Substance Use Type: Marijuana Advance Directives: Yes Advance Directives on File: Yes Advance Directives Date on File: 09/17/22 Do you have a plan to hurt others: No Plan service: No Current occupational status: disabled Cognitive needs: No Hearing needs: No Vision needs: No Physical Exam ED Exam Exam: Appearance: Alert. Oriented X3. No acute distress. Eyes: Pupils equal, round and reactive to light. ENT: Pharynx normal. Neck: Normal inspection. Neck supple. No lymph nodes noted. No crepitus CVS: Normal heart rate and rhythm. Pulses normal. Normal S1 and S2 Respiratory: No respiratory distress. Breath sounds normal. No Wheezing. No rales Abdomen: Soft and nontender. No rigidity. No distention. Skin: multiple pruritic erythematous bumps in clusters no vesicular rash, not painful or blanchable Extremities: No lower extremity edema. No Lacerations. No Rash Neuro: Oriented X 3. No motor deficit. No sensory deficit. Moving all extremities. No slurred speech. CN 2 through 12 grossly intact Psych: calm, cooperative, normal affect Vital Signs: Vital Signs - 24 hr 03/05/25 00:46 Temperature 97.6 F Pulse Rate 80 Respiratory Rate 20 Blood Pressure 148/65 H Pulse Oximetry 99 Oxygen Delivery Method Room Air BMI result Body Mass Index 28.5 Medical Decision Making Medical Decision Making [facility] Narrative: I discussed the physical exam with the patient, patient likely has bedbug rash versus flea bites patient was given hydroxyzine p.o. here in the emergency room to help with the itchiness patient states that she already washed all her clothes in bed she is in hot water and is looking for a new arrangement. Patient states that she does have issues finding a place where she can take showers. Neck said that she will be able to shower will probably be in couple of days. Differential Diagnosis Differential Diagnoses: The differential diagnosis associated with the presentation includes ( bedbugs versus flea bites versus scabies) Discharge Plan Discharge Clinical Impression: Bedbug bite Patient Disposition: Home, Self-Care Instructions: Cold Compress or Soak (ED) Additional Instructions: Please follow-up with your primary care physician tomorrow. If you have any worsening or new symptoms, please return to the emergency room or call 911 Prescriptions: New Benadryl 2 % gel 1 appl topical QID PRN (Reason: itching) Qty: 103 0RF hydroxyzine HCl 25 mg tablet 25 mg PO TID PRN (Reason: nausea and vomiting) Qty: 20 0RF No Action gabapentin 600 mg tablet 600 mg PO BID 30 Days Qty: 60 0RF triamcinolone acetonide 0.1 % cream 1 appl topical BID Qty: 30 0RF multivitamin Tablet 1 tab PO DAILY cyclobenzaprine 10 mg tablet 10 mg PO DAILY PRN (Reason: muscle spasm) valacyclovir 500 mg tablet 500 mg PO DAILY cyclobenzaprine 10 mg tablet 10 mg PO DAILY acetaminophen 500 mg tablet 500 mg PO Q6H PRN (Reason: pain or fever) Rx Instructions: Take 1 tablet every 6 hours as needed for pain/fever. Do not take in combination with Fioricet. lidocaine [DermacinRx Lidocan] 5 % adhesive patch,medicated 1 patch topical Q24H PRN (Reason: Pain) Rx Instructions: leave on most painful area for up to 12 hrs [id number] mg capsule 1 cap PO Q6H PRN (Reason: Headaches) paroxetine HCl 20 mg tablet 20 mg PO DAILY PRN (Reason: Anxiety) amitriptyline 25 mg tablet 25 mg PO BEDTIME ibuprofen 400 mg tablet 400 mg PO Q8H Qty: 10 0RF Print Language: Bulgarian
[2025-03-05 02:57] VITALS: BP 132/78; PULSE 78; RESP 16; TEMP 36.5; O2SAT 98
== END 2025-03-05 02:57 | disposition home or self-care (01) ==
PROVIDERS: Emergency Provider Emergency Medicine; PCP Physician Assistant
DX: R21 Rash and other nonspecific skin eruption (principal); T14.8XXA Other injury of unspecified body region, initial encounter; W57.XXXA Bitten or stung by nonvenomous insect and other nonvenomous arthropods, initial encounter; Y93.9 Activity, unspecified; Y92.9 Unspecified place or not applicable; Y99.9 Unspecified external cause status
CPT/HCPCS: 99282; 99283

== ENCOUNTER 2025-03-10 17:13 | Emergency (ER) | payer MEDICARE, MEDICAID, SELFPAY ==
[2025-03-10 17:39] VITALS: BP 121/51; PULSE 76; RESP 16; TEMP 36.4; O2SAT 99; BMI 32.0
--- NOTE | 2025-03-10 17:41 | ED_ITS ---
HPI - General Adult General Chief complaint: General Medical Stated complaint: Migraine, N/D (sent by colorectal DrKris) Time Seen by Provider: 03/10/25 18:50 Source: patient Mode of arrival: ambulatory History of Present Illness ED Provider: HPI narrative: 50-year-old woman presenting with reports of migraines, she has states that whatever she takes at home is not helping her, and reports nausea and diarrhea, she has had recent admissions for melanotic stool nausea diarrhea and also migraines in the beginning of this month. She reports call on her colorectal doctor and speaking to someone that it was told to come into the ER. Drinks 5 cups of coffee a day, smokes half a pack of cigarettes a day, and noted to be starting to eat fried chicken and chips at bedside. Related Data Home Medications ?Medication ?Instructions ?Recorded ?Confirmed butalbital 50 mg-acetaminophen 325 1 cap PO Q6H PRN He adaches 02/26/23 02/20/25 mg-caffeine 40 mg-codeine 30 mg cap multivitamin 1 tab PO DAILY 04/19/2411/11 paroxetine HCl 20 mg tablet 20 mg PO DAILY PRN Anxiety 10/25/24 02/20/25 amitriptyline 25 mg tablet 25 mg PO BEDTIME 01/19/25 0 02/20/25 acetaminophen 500 mg tablet 500 mg PO Q6H PRN pain or fever 02/18/25 02/20/25 cyclobenzaprine 10 mg tablet 10 mg PO DAILY 02/18/25 0 02/20/25 cyclobenzaprine 10 mg tablet 10 mg PO DAILY PRN muscle spasm 02/18/25 02/20/25 lidocaine 5 % topical patch 1 patch topical Q24H PRN P ain 02/18/25 02/20/25 (DermacinRx Lidocan) valacyclovir 500 mg tablet 500 mg PO DAILY 02/18/25 Previous Rx's ?Medication ?Instructions ?Recorded gabapentin 600 mg tablet 600 mg PO BID 30 days #60 ta bs 02/02/25 ibuprofen 400 mg tablet 400 mg PO Q8H #10 tabs 03/03 triamcinolone acetonide 0.1 % 1 appl topical BID #30 g jacey 03/03/25 topical cream diphenhydramine HCl 2 % topical 1 appl topical QID PRN itching 03/05/25 gel (Benadryl) #103 mL hydroxyzine HCl 25 mg tablet 25 mg PO TID PRN nausea a nd 03/05/25 vomiting #20 tabs mkajgdunix-jhrdbzyakfgyo-vssdpdcl 1 cap PO Q8H PRN hea dache 3 days 03/10/25 50 mg-300 mg-40 mg capsule #10 caps (Fioricet) dicyclomine 10 mg capsule 10 mg PO TID PRN abdominal p ain 5 03/10/25 days #30 caps ondansetron 4 mg disintegrating 4 mg PO Q8H PRN nausea and 03/10/25 tablet vomiting #4 tabs Allergies Allergy/AdvReac Type Severity Reaction Status Date / Time topiramate (From TOPAMAX) Allergy Mild NAUSEA & Verified 03/10/25 17:42 VOMITING divalproex sodium (From AdvReac Unknown NAUSEA & Verified 03/10/25 17:42 DEPAKOTE) VOMITING Review of Systems 2 Constitutional: Constitutional: Reports as per [facility] Past Medical History Medical History Bedbug bite Diarrhea of presumed infectious origin Nicotine dependence, cigarettes, uncomplicated Ankle pain, left Obesity Restless leg syndrome Migraine Anxiety Fibromyalgia Surgical History H/O rectal polypectomy History of surgery History of hernia repair History of wisdom tooth extraction History of tonsillectomy History of umbilical hernia repair H/O LEEP History of colectomy Family History Family History Father CVD (cardiovascular disease) Myocardial infarction Mother Chronic mental illness Dementia Myocardial infarction, Onset Age: 40 Seizure Sister In good health Son In good health Maternal Aunt Breast CA Paternal Aunt Breast CA Other Mental health disorder Social History Social History Household Members: None Household Members Other:: roommate Housing: Other Housing Other:: Hotel. Do you presently have visiting nurse or other home services: No Unable to assess alcohol history related to: Unknown Alcohol intake: never Patient Tobacco Use Status: Current everyday Tobacco user Tobacco use type: Cigarette Cigarettes Per Day: 1 Years Smoked: (onset 12yo, 1/2-3/4ppd x 38yrs, 25pyh) e-Cigarette/Vaping Use: Never Used Second Hand Smoke Exposure: Yes Substance Use Type: Marijuana Advance Directives: Yes Advance Directives on File: Yes Advance Directives Date on File: 09/17/22 service: No Current occupational status: disabled Cognitive needs: No Hearing needs: No Vision needs: No Physical Exam ED Vital Signs: Vital Signs - 24 hr 03/10/25 17:39 Temperature 97.6 F Pulse Rate 76 Respiratory Rate 16 Blood Pressure 121/51 L Pulse Oximetry 99 Oxygen Delivery Method Room Air BMI result Body Mass Index 32.0 Const Other: * Gen: ?Overall well-appearing patient * HEENT: Moist oral mucosa * Neck: Supple, no LAD * CV: RRR, no obvious murmurs appreciated * Resp: ?No wheezing rales rhonchi no stridor moving air well * Abd: ?Bowel sounds are present, mild epigastric tenderness no rebound no rigidity * MSK: FROM, strength 5/5 all extremities * Skin: Warm, dry, intact, * Neuro: ?Alert and oriented x3, moving upper and lower extremities symmetrically, no obvious facial asymmetry noted Course Course Course Narrative: RME, this is a rapid medical exam performed by Jim Bell please refer to primary provider for complete H&P- 50 year old female with history of migraine headaches, diverticulosis, hyperlipidemia, degenerative disc disease presents for evaluation of a headache with associated nausea and vomiting starting yesterday. Her home migraine medications have not been working. Most recent brain MRI was in March of 2024 showing no acute abnormalities. Plan for basic labs, will defer further brain imaging at this time. No neuro deficits in triage. Medical Decision Making Medical Decision Making MDM Narrative: I reviewed patient's prior PCP visit, prior abdomen and pelvis CT done in the beginning of this month, also CT of the lung done in the mid of last month, blood blood work, she is overall well-appearing nonfebrile was not sudden onset of headache to suspect subarachnoid hemorrhage, she reported nausea or vomiting and also endorses likely IBS but she was also noted to be starting to eat essentially junk food during her ER visit I discussed with her dietary intake the fact that she drinks caffeine smokes, I also wanted her to make sure she has her PCP appointments and when she does not feel well probably colorectal provider is not going to see her in the office Differential Diagnosis Differential Diagnoses: The differential diagnosis associated with the presentation includes (Upper GI bleed, lower GI bleed, IBS, migraines, meningitis, subarachnoid hemorrhage, ACS) Admission/Observation Consideration of admission/observation: Escalation of care including admission/observation considered 2022 Emergency Medicine Coding Guide from [employer] on 03/10/2025 All calculations should be rechecked by clinician prior to use RESULT SUMMARY: 4 Estimated Level of Service Problems: Moderate (4) Risk: Moderate (4) Data: Moderate (4) NARRATIVE MDM: This patient's problem complexity is Moderate as patient: has >1 chronic illnesses that appear to be at their baseline. This patient's risk is Moderate due to: overall presentation requiring evaluation for a potentially Moderate-risk process. This patient's data complexity is Moderate due to: -multiple tests ordered -external notes reviewed INPUTS: Number and Complexity ?> 4 = 4: >= stable, chronic illnesses (d) Risk level ?> 3 = Moderate Tests ordered ?> 2 = 2 Tests results reviewed (excluding labs) ?> 1 = 1 Prior external notes reviewed ?> 1 = 1 Assessment requiring and independent historian ?> 0 = No Independent interpretation of tests ?> 0 = No Discussed management/test interpretation w/external professional ?> 0 = No Lab Data 03/10/25 17:56 03/10/25 17:56 Labs: Lab Results 03/10/25 Range/Units 17:56 WBC 7.8 (4.8-10.8) X10*3/uL RBC 4.11 L (4.20-5.50) X10*6/uL Hgb 13.1 (12.0-16.0) g/dl Hct 38.4 (37.0-47.0) % MCV 93.4 (80.0-98.0) fL MCH 31.9 (27.0-33.0) pg MCHC 34.1 (31.0-35.0) g/dl RDW 14.3 (11.0-16.0) % Plt Count 326 (160-400) X10*3/uL MPV 9.2 L (9.4-12.3) fL Immature Gran % (Auto) 0.1 (0.0-0.4) % Neut % (Auto) 49.7 (45-73) % Lymph % (Auto) 41.6 H (20-40) % [place] % (Auto) 6.3 (2-11) % Eos % (Auto) 1.5 (0-4) % Baso % (Auto) 0.8 (0-2) % Lymph # (Auto) 3.3 (1.2-4.9) X10*3/uL [place] # (Auto) 0.5 (0.1-1.2) X10*3/uL Eos # (Auto) 0.1 (0.0-0.4) X10*3/uL Baso # (Auto) 0.1 (0.0-0.2) X10*3/uL Abs Immat Gran (auto) 0.01 (0.00-0.03) X10*3/uL Absolute Neuts (auto) 3.9 (2.0-8.3) x10*3/uL Absolute Nucleated RBC 0.000 (0.0-0.012) X10*3/uL Nucleated RBC % (auto) 0.0 (0.0-0.2) /100WBC Sodium 141 (135-145) mmol/L Potassium 3.7 (3.3-5.1) mmol/L Chloride 108 (96-108) mmol/L Carbon Dioxide 25 (22-29) mmol/L Anion Gap 12 (12-20) BUN 8 L (9-16) mg/dL Creatinine 0.60 (0.5-1.4) mg/dL Estim Creat Clear Calc 108.2 Estimated GFR > 60 Random Glucose 79 (60-115) mg/dL Calcium 9.1 D (8.4-10.2) mg/dL Total Bilirubin 0.1 (0.0-1.0) mg/dL AST 20 (5-31) U/L ALT 19 (0-31) U/L Alkaline Phosphatase 71 (39-117) U/L Total Protein 6.5 (6.5-8.0) g/dL Albumin 4.4 (3.5-5.0) g/dL Lipase 31 (8-78) U/L COVID-19 (ANNE) Negative (Negative) COVID-19 Clin Com See Note Discharge Plan Discharge Clinical Impression: Recurrent headache, Has poorly balanced diet, Tobacco user, Nausea & vomiting Patient Disposition: Home, Self-Care Additional Instructions: Dicyclomine can help you with IBS like symptoms, Prescriptions: New dicyclomine 10 mg capsule 10 mg PO TID PRN (Reason: abdominal pain) 5 Days Qty: 30 0RF vvmzgztsjr-kaljdmowifxty-whiq [Fioricet] 50-300-40 mg capsule 1 cap PO Q8H PRN (Reason: headache) 3 Days Qty: 10 0RF ondansetron 4 mg tablet,disintegrating 4 mg PO Q8H PRN (Reason: nausea and vomiting) Qty: 4 0RF No Action gabapentin 600 mg tablet 600 mg PO BID 30 Days Qty: 60 0RF triamcinolone acetonide 0.1 % cream 1 appl topical BID Qty: 30 0RF multivitamin Tablet 1 tab PO DAILY cyclobenzaprine 10 mg tablet 10 mg PO DAILY PRN (Reason: muscle spasm) valacyclovir 500 mg tablet 500 mg PO DAILY cyclobenzaprine 10 mg tablet 10 mg PO DAILY acetaminophen 500 mg tablet 500 mg PO Q6H PRN (Reason: pain or fever) Rx Instructions: Take 1 tablet every 6 hours as needed for pain/fever. Do not take in combination with Fioricet. lidocaine [DermacinRx Lidocan] 5 % adhesive patch,medicated 1 patch topical Q24H PRN (Reason: Pain) Rx Instructions: leave on most painful area for up to 12 hrs Benadryl 2 % gel 1 appl topical QID PRN (Reason: itching) Qty: 103 0RF hydroxyzine HCl 25 mg tablet 25 mg PO TID PRN (Reason: nausea and vomiting) Qty: 20 0RF urbufdhxat-huhgwelyfb-xmb-cod [id number] mg capsule 1 cap PO Q6H PRN (Reason: Headaches) paroxetine HCl 20 mg tablet 20 mg PO DAILY PRN (Reason: Anxiety) amitriptyline 25 mg tablet 25 mg PO BEDTIME ibuprofen 400 mg tablet 400 mg PO Q8H Qty: 10 0RF Print Language: Vincentian
[2025-03-10 18:09] LABS: MANUAL DIFF FLAG NO
[2025-03-10 18:12] LABS: Hematocrit 38.4 % (37.0-47.0); Hemoglobin 13.1 g/dl (12.0-16.0); Imm Gran Abs Auto 0.01 X10*3/uL (0.00-0.03); Imm Gran Pct Auto 0.1 % (0.0-0.4); Lymphocytes Absolute Auto 3.3 X10*3/uL (1.2-4.9); Mean Corpuscular HGB Conc 34.1 g/dl (31.0-35.0); Mean Corpuscular Hemoglobin 31.9 pg (27.0-33.0); Mean Corpuscular Volume 93.4 fL (80.0-98.0); NRBC Abs Auto 0.000 X10*3/uL (0.0-0.012); NRBC Pct Auto 0.0 /100WBC (0.0-0.2); Platelet Count 326 X10*3/uL (160-400); Red Blood Count 4.11 X10*6/uL (4.20-5.50); White Blood Count 7.8 X10*3/uL (4.8-10.8)
[2025-03-10 18:34] LABS: Alanine Aminotransferase 19 U/L (0-31); Albumin Level 4.4 g/dL (3.5-5.0); Anion Gap 12 (12-20); Aspartate Amino Transferase 20 U/L (5-31); Blood Urea Nitrogen 8 mg/dL (9-16); Calcium 9.1 mg/dL (8.4-10.2); Carbon Dioxide 25 mmol/L (22-29); Chloride 108 mmol/L (96-108); Creatinine Clr Calc Pharmacy 108.2; Estimated Glomerular Filt Rate > 60; Lipase 31 U/L (8-78); Potassium 3.7 mmol/L (3.3-5.1); Sodium 141 mmol/L (135-145); Total Protein 6.5 g/dL (6.5-8.0)
[2025-03-10 18:38] LABS: COVID-19 Test Negative (Negative); IDNOW Serial# 55D5AD1C
[2025-03-10 18:45] LABS: Alkaline Phosphatase 71 U/L (39-117)
[2025-03-10] MEDS: Butalb/Acetamin/Caff 50/325/40 TABLET 1 TAB PO (19:44)
[2025-03-10] MEDS: PHENobarb/Hyoscy/Atropine/Scop 10 ML ELIXIR PO (19:44)
[2025-03-10 20:06] VITALS: BP 116/50; PULSE 72; RESP 14; TEMP 36.4; O2SAT 98
== END 2025-03-10 20:07 | disposition home or self-care (01) ==
PROVIDERS: Physician Assistant; Emergency Provider Emergency Medicine; PCP Physician Assistant
DX: R51.9 Headache, unspecified (principal); R11.2 Nausea with vomiting, unspecified; R19.7 Diarrhea, unspecified; E63.1 Imbalance of constituents of food intake; Z72.0 Tobacco use; Z87.19 Personal history of other diseases of the digestive system
CPT/HCPCS: 80053; 83690; 85025; 87635; 99283; 99284

== ENCOUNTER 2025-03-11 12:54 | Outpatient (REF) | payer MEDICARE, MEDICAID, SELFPAY ==
--- NOTE | ~2025-03-11 | MR_ITS ---
EXAMINATION: MR PELVIS WITHOUT AND WITH CONTRAST CLINICAL INFORMATION: 5.8 cm low-attenuation lesion, right adnexa. COMPARISON: Correlated to CT dated February 17, 2025. TECHNIQUE: Multiplanar, multisequence MRI pelvis without and following the IV contrast administration. Total of 7 cc of gadolinium based without reported immediate complications. FINDINGS: There are uterus is in anteversion flexion position and measures 6.5 x 3.5 x 4.4 cm. The junctional zone measures 4.4 mm. There is an heterogeneous enhancement with multiple less than 5 mm cystic lesions throughout the myometrium and junctional zone. The cervix measures 2.2 cm. There is a 12 mm nabothian cyst. There is a 4.7 x 4.2 x 6.8 cm thin-walled fluid signal characteristic nonenhancing lesion centered in the right adnexa. No free fluid in the cul-de-sac. The left ovary measures 2 x 1 cm with scattered follicles. No intestinal dilatation. Nonspecific prominent lymph nodes in the perihilar iliac and inguinal region, bilaterally. No enhancing mass within the rectosigmoid colon. Scattered diverticula in the left hemicolon. There is diastases abdominal rectus muscles and fat-containing umbilical hernia. No acute fracture or dislocation in either coxofemoral joint. No bone marrow edema enhancing lesion in the bony pelvis included in the oubfl-pb-yrpp. Probable fat-containing right inguinal/femoral hernia.. MR/MR pelvis wo/w con IMPRESSION: Large, 6.8 cm thin wall nonseptated simple cyst lesion, right ovary. Electronically signed by: Romero Molina MD 03/13/2025 07:55 AM EDT
== END 2025-03-11 12:55 | disposition home or self-care (01) ==
LOC: HO.MRI 12:54
PROVIDERS: PCP Physician Assistant; Visit Provider Student in an Organized Health Care Education/Training Program
DX: R19.00 Intra-abdominal and pelvic swelling, mass and lump, unspecified site (principal)
CPT/HCPCS: 72197; A9585

== ENCOUNTER → 2025-03-11 13:19 | Outpatient (BNV) | payer MEDICARE, MEDICAID, SELFPAY | PROVIDERS: PCP Physician Assistant; Visit Provider Radiology Diagnostic Radiology | DX: N83.291 Other ovarian cyst, right side (principal) | CPT/HCPCS: 72197 ==

== ENCOUNTER 2025-03-16 13:31 | Outpatient (AMB) | payer MEDICARE, MEDICAID, SELFPAY ==
--- NOTE | 2025-03-16 13:26 | A.OFFPC_ITS ---
Intake Visit Reasons: [facility] 03/10 Migraine, N/D (sent by ayanna Felix) Allergies topiramate (From TOPAMAX) Allergy (Mild, Verified 03/16/25 13:54) NAUSEA & VOMITING divalproex sodium (From DEPAKOTE) Adverse Reaction (Unknown, Verified 03/16/25 13:54) NAUSEA & VOMITING Medication List - Last Reconciled 03/16/25 by Rudy Barth PA-C acetaminophen 500 mg PO Q6H PRN 30 days amitriptyline 25 mg PO BEDTIME sgpfdmshkr-mchlndgied-wxy-cod [id number] mg 1 cap PO Q6H PRN ptaovogvdh-jjpbhlmdmupjy-msxm 50-300-40 mg (Fioricet) 1 cap PO Q8H PRN 3 days cyclobenzaprine 10 mg PO DAILY cyclobenzaprine 10 mg PO DAILY PRN dicyclomine 10 mg PO TID PRN 5 days diphenhydramine HCl 2% (Benadryl) 1 appl topical QID PRN gabapentin 600 mg PO BID 30 days hydroxyzine HCl 25 mg PO TID PRN ibuprofen 400 mg PO Q8H lidocaine 5% (DermacinRx Lidocan) 1 patch topical Q24H PRN multivitamin 1 tab PO DAILY ondansetron 4 mg PO Q8H PRN paroxetine HCl 20 mg PO DAILY PRN triamcinolone acetonide 0.1% 1 appl topical BID valacyclovir 500 mg PO DAILY Tobacco use date assessed: 03/16/25 Dental Screening Dental Screen Date: 03/16/25 Did you have a dental visit in the last 12 months?: Yes Did you have a dental problem in the last 6 months where you did not have access to dental care?: No Was dental information given to patient?: Patient has dentist HPI [facility] 03/10 Migraine, N/D (sent by ayanna Felix) HPI Details Patient is a 50-year-old female being evaluated today via telephone only. Patient has recently been seen at the ER multiple times for various reasons. She had abdominal pain and was noted to have positive occult stool test. Pelvis MRI recently noted a large right ovarian cyst as well. Her ibuprofen and diclofenac has been stopped due to bleeding risk. She has can contact with the aquatic performer in his trying to get scheduled for colonoscopy and endoscopy. She also reports having worsening right hip pain. X-rays from January of 2025 did not show any significant osteoarthritis. She is requesting a CT or MRI of the right hip to further evaluate. We did discuss needing to start physical therapy though she declines as she feels physical therapy does not work. She reports significant pain thus will increase her gabapentin to 600 t.i.d. Laboratory Tests 12/29/22 12/07/23 02/05/24 17:57 12:38 11:25 WBC 14.3 H 13.0 H RBC 4.79 Creatinine 0.64 Troponin I High Se ns TSH Stool Occult Blood 04/19/24 04/21/24 04/23/24 08:57 09:10 20:59 WBC 18.7 H 13.8 H 16.4 H RBC Creatinine Troponin I High Se ns TSH Stool Occult Blood 08/17/24 08/18/24 10/23/24 12:37 10:42 14:38 WBC RBC 4.43 4.80 Creatinine 0.54 0.61 Troponin I High Se ns < 2.7 < 2.7 TSH 0.86 Stool Occult Blood 02/17/25 21:38 WBC RBC Creatinine Troponin I High Se ns TSH Stool Occult Blood POSITIVE [facility] Medical History Bedbug bite Diarrhea of presumed infectious origin Nicotine dependence, cigarettes, uncomplicated Ankle pain, left Obesity Restless leg syndrome Migraine Anxiety Fibromyalgia Surgical History H/O rectal polypectomy History of surgery History of hernia repair History of wisdom tooth extraction History of tonsillectomy History of umbilical hernia repair H/O LEEP History of colectomy Family History Father CVD (cardiovascular disease) Myocardial infarction Mother Chronic mental illness Dementia Myocardial infarction, Onset Age: 40 Seizure Sister In good health Son In good health Maternal Aunt Breast CA Paternal Aunt Breast CA Other Mental health disorder Social History Household Members: None Household Members Other:: roommate Housing: Other Housing Other:: Hotel. Do you presently have visiting nurse or other home services: No Unable to assess alcohol history related to: Unknown Alcohol intake: never Patient Tobacco Use Status: Current everyday Tobacco user Tobacco use type: Cigarette Cigarettes Per Day: 15 Years Smoked: (onset 12yo, 1/2-3/4ppd x 37yrs, 25pyh) Packs per year/per ci.00 e-Cigarette/Vaping Use: Never Used Second Hand Smoke Exposure: Yes Substance Use Type: Marijuana Advance Directives Date on File: 09/17/22 service: No Current occupational status: disabled Cognitive needs: No Hearing needs: No Vision needs: No Questionnaire PHQ-9 Over the last 2 weeks, how often have you been bothered by any of the following problems? 1. Little interest or pleasure in doing things: more than half the days 2. Feeling down, depressed, or hopeless: more than half the days 3. Trouble falling or staying asleep, or sleeping too much: more than half the days 4. Feeling tired or having little energy: nearly every day 5. Poor appetite or overeating: more than half the days 6. Feeling bad about yourself - or that you are a failure or have let yourself or your family down: several days 7. Trouble concentrating on things, such as reading the newspaper or watching television: several days 8. Moving or speaking so slowly that other people could have noticed. Or the opposite - being so fidgety or restless that you have been moving around a lot more than usual: several days 9. Thoughts that you would be better off or of hurting yourself in some way: several days Total score: 15 Depression Screening Interpretation: Positive Depression Screening Follow-up: Existing condition and In treatment Depression Screening Done: Yes Source: Developed by Drs. Ayan Curiel, Brooke Alfaro, Reagan Veronica and colleagues, with an educational cornelia from [employer]. Thrive Questionnaire Date Thrive assessed: 03/03/25 I am a: Patient What is your living situation today?: I have a steady place to live Within the past 12 months, did the food you bought not last and you didn't have the money to get more?: Often true Within the past 12 months, did you worry whether your food would run out before you got money to buy more?: Often true Do you have trouble paying for medicines?: Yes Do you have trouble getting transportation to medical appointments?: No Do you have trouble paying your heating and electricity bill?: No Do you have trouble taking care of your child, family member or friend?: No Do you have trouble with day-to-day activities such as bathing, preparing meals, shopping, managing finances, etc.?: No Are you currently unemployed and looking for a job?: No Are you interested in more education?: No Please select the resources that you would like help with: None Currently or been in a relationship where the following occur: No concerns reported THRIVE Score: 2 AUDIT C Alcohol Use Questionnaire (AUDIT-C) 1. How often do you have a drink containing alcohol?: Never 3. How often do you have six or more drinks on one occasion?: Never Total Score: 0 SALOMON-7 AMB Questionnaire SALOMON-7 Date SALOMON - 7 assessed: 03/03/25 Feeling nervous, anxious, or on edge: 3 = Nearly every day Not being able to stop or control worryin = More than half the days Worrying too much about different things: 3 = Nearly every day Trouble relaxin = Nearly every day Being so restless that it is hard to sit still: 1 = Several days Becoming easily annoyed or irritable: 1 = Several days Feeling afraid as if something awful might happen: 2 = More than half the days Total SALOMON-7 score (0-4 normal; 5-9 mild; 10-14 moderate; 15-21 severe): 15 Source: Developed by Drs. Ayan Curiel, Brooke Alfaro, Reagan Veronica and colleagues, with an educational cornelia from [employer]. Review of Systems Const Denies headache(s) Eyes Denies loss of vision ENT Denies vertigo, Denies dizziness, Denies headache(s) and Denies sore throat Card Denies chest pain, Denies leg edema and Denies lightheadedness Resp Denies cough, Denies hemoptysis and Denies wheezing GI Denies abdominal pain, Denies melena, Denies constipation, Denies diarrhea and Denies vomiting Denies urinary frequency, Denies dysuria and Denies urinary urgency Musc Details: + hip pain, lower pelvic pain Reports arthralgias, Denies joint swelling, Denies numbness and Denies tingling Neuro Denies behavioral changes, Denies vertigo, Denies dizziness, Denies headache(s), Denies loss of vision, Denies memory loss, Denies numbness and Denies tingling Psych Denies anxiety, Denies behavioral changes, Denies depression, Denies memory loss and Denies panic attacks Jey/Lymph Denies easy bleeding and Denies easy bruising Aller/Immun Denies wheezing Physical exam (Primary Care) Tobacco/Smoking Status: Tobacco use Status Tobacco use date assessed 03/16/25 03/16/25 13:30 Patient Tobacco Use Status Current everyday Tobacco 03/16/25 13:30 Tobacco use type Cigarette 03/16/25 13:30 e-Cigarette/Vaping Use Never Used 03/16/25 13:30 PHQ-9: PHQ-9 Score PHQ-9: Total score 15 03/16/25 13:58 Depression Screening Interpretation: Positive Depression Screening Follow-up: Existing condition and In treatment Thrive Assessment: Date of Thrive Assessment Date Thrive assessed 03/03/25 03/16/25 13:30 Currently or been in a relationship where the following occur: No concerns reported Telehealth Telehealth Telehealth Platform: Telephone Location of provider rendering services: practice address Location of patient: address on file Patient Identification confirmed using: Name, : Yes Telehealth method: voice only Patient verbally consented to treatment: Yes Patient verbally consented to billing insurance company: Yes Patient informed of any privacy concerns related to visit: Yes Minutes spent on Phone/Video with Pt.: 15 Coding Level of Care Code Tele Est Pt Level 4 (81210) Diagnoses Chronic right hip pain M25.551; G89.29 Right ovarian cyst N83.201 Diverticulitis K57.92 Assessment & Plan Assessment & Plan (1) Chronic right hip pain: Code(s): M25.551 - Pain in right hip; G89.29 - Other chronic pain Category: Medical Plan: Patient reports some worsening right hip pain over last month, unclear if this is related to her hospice admitting clerk complaints as she does have a large right ovarian cyst. Right hip pelvic x-ray without any significant osteoarthritis noted. She is interested in getting some better imaging over right hip (2) Right ovarian cyst: Code(s): N83.201 - Unspecified ovarian cyst, right side Category: Medical Plan: Patient is followed by hospice admitting clerk at [facility] in his considering removal of her ovary. Recent pelvic MRI showing large right ovarian cyst (3) Diverticulitis: Code(s): K57.92 - Diverticulitis of intestine, part unspecified, without perforation or abscess without bleeding Category: Medical Plan: Patient has a history of diverticulitis. He is in contact with the aquatic performer in his awaiting to get a colonoscopy and endoscopy. Of note did have a positive occult stool test at recent ER visit. Will recheck CBC to evaluate for any significant anemia. Orders: Orders Complete Blood Count no Diff 03/16/25 K57.92 - Diverticulitis of intestine, part unspecified, without perforation or abscess without bleeding CT hip RT wo IV con 03/16/25 G89.29 - Other chronic pain, M25.551 - Pain in right hip Basic Metabolic Panel 03/16/25 K57.92 - Diverticulitis of intestine, part unspecified, without perforation or abscess without bleeding Medications: New prednisone take 3 tabs x 3 days , take 2 tabs x 3 days , take 1 tab x 3 days 10 mg PO DIRECTED 18 tabs 0RF 9 days K57.92 - Diverticulitis of intestine, part unspecified, without perforation or abscess without bleeding Changed From gabapentin 600 mg PO BID 30 days 60 tabs 0RF 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
--- OUTSIDE RECORDS SUMMARY | 2025-03-16 14:14 | XMS_ITS | Patient Health Record ---
Author Organization [facility] Address [address] [place] [address] Care Team Providers Care Registered Nurse Nursery Name Role Phone SHANITA JONES Primary Care [...] Start Date Coverage End Date Medicare B [place] [address] [place] [id number] ROXANNA RILEY Self - patient is the insured [employer] of [facility] [address] [place] [address] [phone] [id number] ROXANNA RILEY Self - patient is the [...]
== END 2025-03-16 14:19 | disposition home or self-care (01) ==
LOC: HO.HMCH 13:31
PROVIDERS: PCP Physician Assistant; Visit Provider Physician Assistant
DX: M25.551 Pain in right hip (principal); G89.29 Other chronic pain; N83.201 Unspecified ovarian cyst, right side; K57.92 Diverticulitis of intestine, part unspecified, without perforation or abscess without bleeding

== ENCOUNTER 2025-04-07 08:34 | Outpatient (AMB) | payer MEDICARE, MEDICAID, SELFPAY ==
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
== END 2025-04-07 09:24 | disposition home or self-care (01) ==
LOC: HO.HSM 08:34
PROVIDERS: PCP Physician Assistant; Visit Provider Registered Nurse
DX: G43.909 Migraine, unspecified, not intractable, without status migrainosus (principal); F41.9 Anxiety disorder, unspecified
CPT/HCPCS: 99214

== ENCOUNTER → 2025-04-07 08:34 | Outpatient (BNVA) | payer OTHER, SELFPAY | PROVIDERS: PCP Physician Assistant; Visit Provider Registered Nurse | DX: G43.909 Migraine, unspecified, not intractable, without status migrainosus (principal); F41.9 Anxiety disorder, unspecified | CPT/HCPCS: 99212 ==

== ENCOUNTER 2025-04-18 08:45 | Outpatient (AMB) | payer OTHER, SELFPAY ==
[2025-04-18 08:46] VITALS: BP 106/68; PULSE 92; TEMP 36.7; O2SAT 97; BMI 29.8
--- NOTE | 2025-04-18 08:46 | MHC.OFFWIV ---
Intake Vital Signs 04/18/25 08:46 Height 5 ft 2 in Weight 163 lb BMI 29.8 BP 106/68 Blood Pressure Location Lt brachial Position Sitting Pulse 92 Pulse Source Pulse Oximeter Temp 98.1 F Temp Source Oral Pulse Oximetry (%) 97 Oxygen Delivery Method Room Air Intake Visit Reasons: EP Diarrhea, back pain Intake Note: pt presents with severe diarrhea for 5 days; Immodium is unhelpful, c/o raw irritated vaginal and anal area Patient Tobacco Use Status: Current everyday Tobacco user Allergies topiramate (From TOPAMAX) Allergy (Mild, Verified 04/18/25 08:50) NAUSEA & VOMITING divalproex sodium (From DEPAKOTE) Adverse Reaction (Unknown, Verified 04/18/25 08:50) NAUSEA & VOMITING Do you need a note to return to daycare/school/sports/work: No HPI HPI Comments History of Present Illness Details History of Present Illness - The patient is a 50-year-old female presenting with symptoms related to an ovarian cyst, diarrhea, and vaginal irritation. - Ovarian cyst: Reports a 7 cm cyst causing pressure on the rectum, lower back, and right hip, with increased back pain. Has surgery scheduled for Aug, has to be done with her colorectal surgeon there. Has messages in with both offices for her current issues. - Diarrhea: Experienced for the past three to five days, worsening after starting amoxicillin. Described as watery and frequent, occurring at least ten times a day. Also dark but not sure if black, no blood. Denies fevers or abdominal pain. - Vaginal irritation: Reports irritation and swelling for the last 3-4 days. - Sinus infection: Symptoms began approximately five days ago, prescribed amoxicillin, preferred Augmentin. Is feeling better. - Diverticulitis: History of diverticulitis, typically with abdominal pain, denies current abdominal pain. Physical Exam General: Cooperative, healthy appearing, comfortable, no acute distress and well developed Orientation: Patient oriented x3 Limitations: No limitations Head: Normal to inspection Ears: Hearing grossly normal bilaterally Nose: Normal External nose present Face and sinus: Normal facial exam Eyes: Appearance normal, both eyes and all related structures Neck: Normal visual inspection and Yes full ROM Respiratory: Normal respiratory effort and able to speak in complete sentences. : well circumscribed erythema on bilateral buttocks into labia Skin: No rashes or lesions noted Neuro: Patient oriented x3 Extremities: Normal to inspection Review of Systems - Gastrointestinal: Reports watery diarrhea for the past three to five days, denies abdominal pain. - Genitourinary: Reports vaginal irritation and swelling. - Musculoskeletal: Reports increased lower back pain and pressure in the right hip. - Respiratory: Denies cough, hemoptysis, or wheezing. All systems reviewed and are unremarkable except as noted in HPI ON LICENSE OF [facility] Medical History (Updated 04/18/25 @ 09:32 by Jyoti Markham PA-C) Sinusitis Delusional disorder Bedbug bite Diarrhea of presumed infectious origin Nicotine dependence, cigarettes, uncomplicated Ankle pain, left Obesity Restless leg syndrome Migraine Anxiety Fibromyalgia Surgical History H/O rectal polypectomy History of surgery History of hernia repair History of wisdom tooth extraction History of tonsillectomy History of umbilical hernia repair H/O LEEP History of colectomy Family History Father CVD (cardiovascular disease) Myocardial infarction Mother Chronic mental illness Dementia Myocardial infarction, Onset Age: 40 Seizure Sister In good health Son In good health Maternal Aunt Breast CA Paternal Aunt Breast CA Other Mental health disorder Social History Household Members: None Household Members Other:: roommate Housing: Other Housing Other:: Hotel. Do you presently have visiting nurse or other home services: No Alcohol intake: never Patient Tobacco Use Status: Current everyday Tobacco user Tobacco use type: Cigarette Cigarettes Per Day: 15 Years Smoked: (onset 12yo, 1/2-3/4ppd x 37yrs, 25pyh) e-Cigarette/Vaping Use: Never Used Second Hand Smoke Exposure: Yes Substance Use Type: Marijuana Advance Directives Date on File: 09/17/22 service: No Current occupational status: disabled Cognitive needs: No Hearing needs: No Vision needs: No Physical Exam Vital Signs: Last Vital Signs Temp 98.1 F 04/18/25 08:46 Pulse 92 04/18/25 08:46 BP 106/68 04/18/25 08:46 Pulse Ox 97 04/18/25 08:46 Oxygen Delivery Method Room Air 04/18/25 08:46 BMI result Body Mass Index 29.8 Assessment & Plan Assessment & Plan (1) Watery diarrhea: Code(s): R19.7 - Diarrhea, unspecified Plan: Plan Patient was informed and verbally consented to the use of an ambient scribe for clinic note documentation during this visit. 1. Ovarian Cyst - Continue communication with aircraft mechanic surgeon to see if surgery can be moved up as she is in increasing chronic pain. - Monitor for acute pain indicating possible torsion or rupture; go to ED if this occurs. 2. Diarrhea - Conduct a GI panel to determine if infectious etiology is present. - Test for blood, Clostridioides difficile and Helicobacter pylori. 3. Acute candidiasis of vulva and vagina - Prescribe antifungal cream and Vagisil or A&D ointment for symptomatic relief. - Advise on hygiene measures to prevent further irritation. 4. Sinus Infection - Continue current antibiotic therapy with amoxicillin. (2) Acute candidiasis of vulva and vagina: Code(s): B37.31 - Acute candidiasis of vulva and vagina Plan: as above Orders: Orders CDiff Gene PCR Today R19.7 - Diarrhea, unspecified GI Panel Today R19.7 - Diarrhea, unspecified H pylori Ag Stool Today R19.7 - Diarrhea, unspecified Gastric Occult Blood Test Today R19.7 - Diarrhea, unspecified Medications: New clotrimazole 1% 1 appl topical Q12H 45 grams 1RF 2 weeks Discontinued prednisone take 3 tabs x 3 days , take 2 tabs x 3 days , take 1 tab x 3 days Discontinued Reason: No Longer Medically Relevant 10 mg PO DIRECTED 9 days 18 tabs 0RF K57.92 - Diverticulitis of intestine, part unspecified, without perforation or abscess without bleeding Coding Level of Care Code Est Pt Level 4 (23183) Diagnoses Watery diarrhea R19.7 Acute candidiasis of vulva and vagina B37.31
--- OUTSIDE RECORDS SUMMARY | 2025-04-18 09:14 | XMS_ITS | Patient Health Record ---
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 Sprayer Name Role Phone SHANITA JONES Primary Care Provider Wade waters Allergies Allergen (clinical drug ingredient) Drug/Non Drug Allergy documented on EMR Reaction Allergy Type Onset Date Status valproate Depakote Unknown Drug Allergy Active topiramate Topamax Unknown Drug Allergy Active Reason For Referral No Information Medications Medication SIG (Take, Route, Frequency, Duration) Notes Start Date End Date Status Dicyclomine HCl 20 MG Tablet 1 tablet Orally Four times a day Active Butalbital-Acetaminophen 50-300 MG Tablet 1 capsule as needed Orally Active Ibuprofen 800 MG Tablet 1 tablet with fo od or milk as needed Orally Active Cyclobenzaprine HCl 10 MG Tablet 1 tablet at bedtime as needed Orally 3 x daily Active clonazePAM 0.5 MG Tablet 1 tablet Orally Once a day Active valACYclovir HCl 500 MG Tablet 1 tablet Orally Once a day as needed Active Diclofenac Sodium Ac tive Social History Tobacco Use: Social History Observation Description Date Details (start date - stop date) Current Smoker 10/30/1986 - NA Social History Tobacco Use: Social Info Question Answer Notes Tobacco Use/Smoking Are you a current smoker How often do you smoke cigarettes? every day How many cigarettes a day do you smoke? 11-20 How soon after you wake up do you smoke your first cigarette? 6-30 minutes Are you interested in quitting? Thinking about quitting When did you start smoking? 10/30/1986 Additional Findings: Tobacco User Modera te cigarette smoker (10-19 cigs/day) Additional Details Category Social Info Options Details Tobacco Use: Medical Marijuana uses marij uana for pain Problems Problem Type SNOMED Code ICD Code Onset Dates Problem Status W/U Status Risk Notes Problem Lumbosacral spondylosis without myelopathy ([id number]) Spondylosis without myelopathy or radiculopathy, lumbar region (M47.816) Active confirmed Plan Of Treatment No Information Insurance Providers Payer Name Payer Address Payer Phone Subscriber Number Group Number Insured Name Patient Relationship to Insured Coverage Start Date Coverage End Date Medicare B [facility] [address] [place] [id number] ROXANNA RILEY Self - patient is the insured [employer] of [place] [address] [place] [address] [id number] ROXANNA RILEY Self - patient is the [...]
== END 2025-04-18 09:36 | disposition home or self-care (01) ==
PROVIDERS: PCP Physician Assistant; Visit Provider Physician Assistant
DX: R19.7 Diarrhea, unspecified (principal); B37.31 Acute candidiasis of vulva and vagina

== ENCOUNTER → 2025-04-18 08:45 | Outpatient (BNVA) | payer OTHER, SELFPAY | PROVIDERS: PCP Physician Assistant; Visit Provider Physician Assistant | DX: B37.31 Acute candidiasis of vulva and vagina (principal); R19.7 Diarrhea, unspecified; N83.209 Unspecified ovarian cyst, unspecified side; K57.92 Diverticulitis of intestine, part unspecified, without perforation or abscess without bleeding | CPT/HCPCS: 99212 ==

== ENCOUNTER 2025-04-18 19:12 | Outpatient (REF) | payer OTHER, SELFPAY ==
--- OUTSIDE RECORDS SUMMARY | 2025-04-19 10:16 | XMS_ITS | Patient Health Record ---
Author Organization [facility] Address [address] [place] [address] Care Team Providers Care Certified Ski Patroller Name Role Phone SHANITA JONES Primary Care [...] Risk Notes Problem Lumbosacral spondylosis without myelopathy ([id number]) Spondylosis without myelopathy or radiculopathy, lumbar region (M47.816) Active confirmed Plan Of Treatment No Information Insurance Providers Payer Name Payer Address Payer Phone Subscriber Number Group Number Insured Name Patient Relationship to Insured Coverage Start Date Coverage End Date Medicare B [facility] [address] [place] [phone] [id number] ROXANNA RILEY Self - patient is the insured [employer] of [place] [address] [place] [address] [id number] ROXANNA RILEY Self - patient is the [...]
[2025-04-19 11:31] LABS: OBS Int Ctl Valid YES; OBS1 NEGATIVE (NEGATIVE)
[2025-04-19 12:27] LABS: E. coli EAEC Not Detected (Not Detect.); E. coli EPEC Not Detected (Not Detect.); E. coli ETEC Not Detected (Not Detect.); E. coli STEC Not Detected (Not Detect.); Shigella sp./EIEC Not Detected (Not Detect.)
[2025-04-19 12:59] LABS: CDiff Gene PCR NEGATIVE (Negative)
== END 2025-04-18 19:13 | disposition home or self-care (01) ==
LOC: HO.HMGCLNP 19:12
PROVIDERS: PCP Physician Assistant; Visit Provider Physician Assistant
DX: R19.7 Diarrhea, unspecified (principal)
CPT/HCPCS: 82271; 82272; 87338; 87493; 87507

== ENCOUNTER 2025-04-26 11:11 | Outpatient (REF) | payer OTHER, SELFPAY ==
--- NOTE | ~2025-04-26 | CT_ITS ---
CLINICAL HISTORY: M25.551 - Pain in right hip CT right hip without IV contrast. Comparison: CR - XR HIP RT W [id number] - 02/13/25 01:42 EDT Findings: Right anterior and posterior acetabular esqueda demonstrated no fractures. Right anterior and posterior acetabular columns are intact. The hip joint remains congruent with no evidence of marginal impaction or intra-articular bone fragments. No right femoral head, neck, trochanteric or proximal shaft fractures. No avulsion fractures/apophysitis. Ipsilateral pubic rami are intact. No diastases of the symphysis pubis. No right-sided sacral fractures. Normal right sacroiliac joint. Soft tissue pelvis: No hematoma/free fluid. Bladder is partially decompressed. No right iliopsoas/greater trochanteric bursitis. Fascial planes are preserved. No foreign body is demonstrated. 6 cm probable cyst right adnexa correlate with pelvic sonogram. Impression: 1. No acute fracture subluxations or dislocations. 2. Normal congruency of the right femoroacetabular joint. No evidence of femoral bump or acetabular spurs to suggest femoroacetabular impingement. 3. 6 cm right adnexal probable cysts correlate with pelvic sonogram. This document has been electronically signed by: Kush Zepeda MD on 04/26/2025 15:11:13
== END 2025-04-26 11:12 | disposition home or self-care (01) ==
LOC: HO.CT 11:11
PROVIDERS: PCP Physician Assistant; Visit Provider Physician Assistant
DX: M25.551 Pain in right hip (principal); G89.29 Other chronic pain
CPT/HCPCS: 73700

== ENCOUNTER → 2025-04-26 11:12 | Outpatient (BNV) | payer OTHER, SELFPAY | PROVIDERS: PCP Physician Assistant; Visit Provider Radiology Diagnostic Radiology | DX: M25.551 Pain in right hip (principal) | CPT/HCPCS: 73700 ==

== ENCOUNTER 2025-04-28 09:07 | Outpatient (REF) | payer OTHER, SELFPAY ==
--- NOTE | ~2025-04-28 | XR_ITS ---
EXAMINATION: XR CHEST 2 VIEWS HISTORY: J40 - Bronchitis, not specified as acute or chronic COMPARISON: Comparison is made with the prior examination dated 01/19/2025. FINDINGS: PA and lateral views of the chest are submitted. The lungs are expanded and clear. There is no pleural effusion, pneumothorax, or pulmonary vascular congestion. The heart is normal in size. The bones are intact. XR/XR chest 2V IMPRESSION: No acute cardiopulmonary abnormality. Electronically signed by: Ayan Ackerman MD 04/28/2025 09:46 AM EDT
--- OUTSIDE RECORDS SUMMARY | 2025-04-28 09:33 | XMS_ITS | Patient Health Record ---
Author Organization [facility] Address [address] [place] [address] Care Team Providers Care Laboratory Mechanic Helper Name Role Phone SHANITA JONES Primary Care [...] Risk Notes Problem Lumbosacral spondylosis without myelopathy ([id number]) Spondylosis without myelopathy or radiculopathy, lumbar region (M47.816) Active confirmed Plan Of Treatment No Information Insurance Providers Payer Name Payer Address Payer Phone Subscriber Number Group Number Insured Name Patient Relationship to Insured Coverage Start Date Coverage End Date Medicare B [facility] [address] [place] [phone] [id number] ROXANNA RILEY Self - patient is the insured [employer] of [place] [address] [place] [address] [id number] ROXANNA RILEY Self - patient is the [...]
--- OUTSIDE RECORDS SUMMARY | 2025-04-28 09:33 | XMS_ITS | Data Portability ---
Author Organization [facility], [facility] [place] Address [address] [place] [address] Care Team Providers Care Mirror Specialist Name Role Phone SHANITA MARTIN Primary Care Provider Assessment Encounter Date Assessment Date Assessment LastModified by Organization Details LastModified Time 03/01/2024 03/01/2024 Telemedicine Telephone Encounter Patient Location: Home Physician Location: [facility] Office [place], [place] Time spent with patient: 12 mins [...] in a jail. She was seen at [facility] where x-rays were negative. She [...] the same service when rendered via a jcfe-iu-vwcp interaction. I discussed with the patient the risks and benefits of telemedicine services and the patient consented to the receipt of such telemedicine services. [email or web address] Not available 03/01/2024 12:09:05 Plan of Treatment Reminders Order Date Submit Date Provider Last Modified By Organization Details Last Modified Time Details Appointments NEW PATIENT 15 2024 08:30A M Ayan Briceno MD Not available Not available Not available Lab None recorded. Referral physical therapist referral - left ankle rehab rom, stretch, strengthe fernando 2023 024 [email or web address] Not available 03/31/2024 15:05:00 Procedures None recorded. Surgeries None recorded. Imaging None recorded. Medication Orders meloxicam 15 mg tablet [address] [id number], [address] [place], [place], [id number], 05/16/2024 12:11:54 meloxicam 15 mg tablet [address] [facility], [address] [place], [place], [phone], 03/31/2024 15:05:00 Patient TargetsNo targets recorded. Patient [...] a4ajBk vP9nXo QUaueC m3YtLR FvZlgJ JJ8mAn HZtai3 [id number] AC0Koa HyNWaD eUC8mr 84%3D INTERFACE [facility] [address] [facility] [address], [place], [address], 02/15/2024 11:08:00 02/15/20 24 02/15/2024 XR, foot, 2 view [email or web address] ?Encry pted=s hAaTro YD8dLq bEUv6g %2BXZw aYqtaq 0bqfl% 2Fg9IQ a4ajBk vP9nXo QUaueC m3YtLR FvZl J8[place] HZtai3 8p0091 AC0Koa HyNWaD eUC8mr 84%3D INTERFACE [facility] [address], [place], [address], 02/15/2024 11:08:02 02/15/20 24 02/15/2024 XR, ankle , 3 or more view [email or web address] ?Encry pted=s hAaTro YD8dLq bEUv6g %2BXZw aYqtaq 0bqfl% 2Fg9IQ a4ajBk vP9nXo QUaueC m3YtLR FvZl J8[place] HZtai3 5j0301 AC0Koa HyNWaP eUC8mr 84%3D INTERFACE [facility] [address], [place], [address], 02/15/2024 11:10:08 02/15/20 24 02/15/2024 XR, ankle , 3 or more view [email or web address] ?Encry pted=s hAaTro YD8dLq bEUv6g %2BXZw aYqtaq 0bqfl% 2Fg9IQ a4ajBk vP9nXo QUaueC m3YtLR [address] HZtai3 9z3524 AC0Koa HyNWaP eUC8mr 84%3D INTERFACE [facility] [address], [place], [address], 02/15/2024 11:10:10 02/16/[address], ankle + foot, w/o contr ast No observ ation record ed. [email or web address] Not Available 2023 15:11:58 Result Notes None recorded. Procedures Surgical History Date Name Laterality Status Provider Name and Address Organization Details Recorded Time 4 Cast Removal completed Mary Pederson [facility] 02/22/2024 12:07:49 4 Cast_Short Leg_11+ completed JOHNJUDY GARZA [facility] 02/18/2024 12:59:56 4 Cast Removal completed [facility] 02/18/2024 12:57:56 Imaging Results None recorded. Procedure Notes None recorded. Medical Equipment None Reported. Allergies Allergen ID Allergen Name Allergen Category Reaction Reaction Severity Criticality Documentation Date Start Date Code Code System Note Provider Name and Address Organization Details Recorded Time 702755 Topamax medicatio n Not available Not available Not available 02/15/2024 81528 3 [facility] 4 11:55:06 156134 Depakote medicatio n Not available Not available Not available 02/15/2024 65389 9 RxNorm [facility] 4 11:55:10 Medications Name Sig Start Date Stop Date Status Note LastModified by Organization Details LastModified Time cyclobenzapr ine 10 mg tablet TAKE 1 TABLET BY MOUTH TWICE DAILY NEEDED FOR MUSCLE SPASM active Not Available Not Available No t Available amoxicillin 500 mg capsule TAKE 1 CAPSULE BY MOUTH THREE TIMES DAILY UNTIL ALL TAKEN active Not Available Not Available No t Available gabapentin 600 mg tablet TAKE 1 TABLET BY MOUTH TWICE DAILY active Not Available Not Available No t Available doxycycline hyclate 100 mg capsule TAKE 1 CAPSULE BY MOUTH TWICE DAILY FOR 7 DAYS active Not Available Not Available No t Available azithromycin 250 mg tablet TK 2 TS PO ON DAY 1, THEN TK 1 T PO D FOR 4 DAYS active Not Available Not Available No t Available ibuprofen 800 mg tablet TAKE 1 TABLET BY MOUTH THREE TIMES DAILY NEEDED FOR PAIN active Not Available Not Available No t Available fluconazole 150 mg tablet TAKE 1 TABLET BY MOUTH ONCE. active Not Available Not Available Not Available meloxicam 15 mg tablet active Not Available Not Available No t Available prednisone 20 mg tablet TAKE 3 TABLETS BY MOUTH DAILY FOR 5 DAYS active Not Available Not Available N ot Available clonazepam 0.5 mg tablet TAKE 1 TABLET BY MOUTH EVERY DAY AT BEDTIME active Not Available Not Available No t Available valacyclovir 500 mg tablet TAKE 1 TABLET BY MOUTH EVERY DAY active Not Available Not Available No t Available omeprazole 40 mg capsule,neo yed release TAKE 1 CAPSULE BY MOUTH DAILY active Not Available Not Available Not Available acetaminophe n 500 mg tablet TAKE 1 TABLET BY MOUTH EVERY 6 HOURS NEEDED FOR PAIN OR FEVER. DO NOT TAKE IN COMBINATIN WITH FIORICET. active Not Available Not Available No t Available triamcinolon e acetonide 0.1 % topical cream APPLY TOPICALLY TO THE AFFECTED AREA TWICE DAILY active Not Available Not Available No t Available amitriptylin e 25 mg tablet TAKE 1 TABLET BY MOUTH DAILY AT BEDTIME active Not Available Not Available N ot Available triamcinolon e acetonide 0.1 % dental paste APPLY INSIDE MOUTH TWICE DAILY FOR 14 DAYS NEEDED FOR MOUTH IRRITATION active Not Available Not Available N ot Available cephalexin 500 mg capsule TAKE 1 CAPSULE BY MOUTH EVERY 12 HOURS FOR 7 DAYS active Not Available Not Available N ot Available paroxetine 20 mg tablet TAKE 1 TABLET BY MOUTH DAILY active Not Available Not Available Not Available hyoscyamine sulfate 0.125 mg tablet TAKE 1 TABLET BY MOUTH FOUR TIMES DAILY NEEDED FOR INDIGESTION active Not Available Not Available Not Available diphenhydram ine 25 mg capsule TAKE 1 CAPSULE BY MOUTH THREE TIMES DAILY NEEDED FOR ITCHING active Not Available Not Available Not Available clotrimazole -betamethaso ne 1 %-0.05 % topical cream APPLY TOPICALLY TO THE AFFECTED AND SURROUNDING AREAS TWICE DAILY IN THE MORNING AND IN THE EVENING FOR 2 WEEKS active Not Available Not Available No t Available butalbital 50 mg-acetamino phen 325 mg-caffeine 40 mg-codeine 30 mg cap TAKE 1 CAPSULE BY MOUTH NEEDED EVERY 6 HOURS FOR 30 DAYS active Not Available Not Available No t Available lidocaine 5 % topical patch APPLY 1 PATCH TOPICALLY TO THE SKIN DAILY NEEDED FOR PAIN. REMOVE AFTER 12 HOURS active Not Available Not Available No t Available oxycodone 5 mg capsule TAKE 1 CAPSULE BY MOUTH TWICE DAILY NEEDED FOR PIAN active Not Available Not Available No t Available ibuprofen 400 mg tablet TAKE 1 TABLET BY MOUTH EVERY 8 HOURS active Not Available Not Available No t Available gabapentin 300 mg capsule TAKE 1 CAPSULE BY MOUTH TWICE DAILY active Not Available Not Available No t Available diclofenac sodium 75 mg tablet,delay ed release TAKE 1 TABLET BY MOUTH TWICE DAILY AFTER A MEAL active Not Available Not Available No t Available hydroxyzine HCl 25 mg tablet TAKE 1 TABLET BY MOUTH THREE TIMES DAILY NEEDED FOR NAUSEA OR VOMITING active Not Available Not Available Not Available diclofenac sodium 50 mg tablet,delay ed release TAKE 1 TABLET BY MOUTH EVERY 12 HOURS NEEDED FOR PAIN active Not Available Not Available No t Available methylpredni solone 4 mg tablets in a dose pack TAKE DIRECTED ON PACKAGE active Not Available Not Available No t Available fluticasone propionate 50 mcg/actuatio n nasal spray,suspen rod SHAKE LIQUID AND USE 1 SPRAY IN EACH NOSTRIL TWICE DAILY active Not Available Not Available Not Available naproxen 500 mg tablet TAKE 1 TABLET BY MOUTH TWICE DAILY FOR 10 DAYS NEEDED FOR PAIN active Not Available Not Available No t Available amoxicillin 875 mg-potassium clavulanate 125 mg tablet TAKE 1 TABLET BY MOUTH TWICE DAILY active Not Available Not Available No t Available oxycodone 5 mg tablet TAKE 1 TABLET BY MOUTH EVERY 6 HOURS NEEDED FOR PAIN active Not Available Not Available No t Available Benadryl 2 % topical gel 1 APPLICATION 4 TIMES DAILY NEEDED FOR ITCHING active Not Available Not Available No t Available cyclobenzapr ine 5 mg tablet TAKE 1 TABLET BY MOUTH EVERY 8 HOURS NEEDED FOR PAIN SCALE 7-10 FOR 5 DAYS active Not Available Not Available No t Available levonorgestr el 1.5 mg tablet TAKE 1 TABLET BY MOUTH FOR 1 DAY DIRECTED active Not Available Not Available No t Available tramadol 100 mg tablet TAKE 1 TABLET BY MOUTH THREE TIMES DAILY NEEDED FOR PAIN active Not Available Not Available No t Available BinaxNOW COVID-19 Ag Self Test kit TEST DIRECTED TODAY active Not Available Not Available No t Available Vitals Date Recorded Body height Body mass index (BMI) Body weight Provider Name and Address Organization Details Last Updated DateTime 03/31/2024 157.48 cm 28 kg/m2 30274.63 g Leydi Avalos [facility] 03/31/2024 11:20:03 Date Recorded Body height Body mass index (BMI) Body weight Provider Name and Address Organization Details Last Updated DateTime 05/16/2024 157.48 cm 28 kg/m2 90738.63 g [place] [facility] 05/16/2024 10:06:35 Date Recorded Body height Body mass index (BMI) Body weight Provider Name and Address Organization Details Last Updated DateTime 07/07/2024 157.48 cm 28 kg/m2 76550.63 g [facility] 07/07/2024 [...] Diagnosis SNOMED-CT Code Diagnosis ICD10 Code Diagnosis IMO Codes Diagnosis Note [id number] MD Gianfranco Jones [address] [place] [address] 02/15/2024 10:54:15 03/15/2024 10:13:08 Ankle pain 338113001 M25.572 Sprain of left ankle 484 5207421 4897651 S93.402A Closed fra cture of lateral malleolus of left fibula 3627005850 4470738 S82.65XA [id number] MD Gianfranco Jones [address] [facility] [address] [place] [address] 02/18/2024 12:13:19 02/18/2024 13:00:30 Fracture of ankle 86048115 S82.65XA [id number] MD Gianfranco Jones [address] [facility] [address] [place] [place] [address] 02/22/2024 10:57:56 02/22/2024 12:11:51 Sprain of left ankle 1860357050 9792392 S93.402A Sprain of lateral ligament of ankle joint 704080389 S93.492D [id number] MD Gianfranco Jones [address] [place] [place] [address] 03/01/2024 11:09:22 03/25/2024 10:43:23 Sprain of left ankle 6204720770 8374621 S93.402A [id number] GUNNAR Chau [address] [place] [address] 03/31/2024 11:04:57 05/05/2024 09:25:42 Sprain of left ankle 0885428581 3494455 S93.402A [id number] Denice Winston PA-C [facility] [address] [place] [address] 05/16/2024 09:04:09 06/01/2024 20:41:20 Ankle pain 208408492 M25.579 51660343 [id number] Denice Winston PA-C [facility] [address] [place] [address] 07/07/2024 13:13:01 07/28/2024 11:52:44 Ankle pain 651588511 M25.579 [id number] Health Concerns Section Related Observation LastModified by Organization Detai ls LastModified Time None Recorded Concern Status LastModified by Organization Details LastModified Time None Recorded Advance Directives Directive None Recorded Payers Insurance Date Sequence Insurance Name Policy Number Policy Pearson Covered Member ID Pearson Member ID Guarantor Name 03/21/2025 1 [place] [employer] Abril Gonzalez [id number] Abril Gonzalez 03/21/2025 1 [facility] - DOS ON OR AFTER 2022 - ONE CARE (MEDICARE REPLACEMENT/AD VANTAGE - HMO) Abril Gonzalez [id number] Abril Gonzalez 04/28/2024 1 [employer] (MEDICARE REPLACEMENT/AD VANTAGE - PPO) [id number] Abril Gonzalez [id number] Abril Gonzalez 03/21/2025 2 [place] [facility] Abril Gonzalez [id number] Abril Gonzalez 04/28/2024 1 [place] [employer] Abril Gonzalez [id number] Abril Gonzalez 03/20/2025 [employer] - SPECIALITY CLAIMS (MEDICARE DME REGION A) Abril Gonzalez [id number] Abril Gonzalez 05/06/2024 1 [employer] (MEDICARE REPLACEMENT/AD VANTAGE - PPO) [id number] Linda Gonzalez [id number] Abril Gonzalez Notes Date Note Type Note Provider Name and Address Organization Details Recorded Time 03/01/2024 text/html ROS as noted in the HPI Haris Carroll MD [address], [place], [address], [facility] 03/01/2024 12:09:36 03/31/2024 text/html Patient [...] side effects discussed. Denice Winston PA-C [address], [place], [address], [facility] 03/31/2024 12:44:58 05/16/2024 text/html Patient [...] 6-8 weeks Denice Winston PA-C [address] [facility] [address], [place], [address], [facility] 05/16/2024 11:15:34 07/07/2024 text/html [...] full duty work. Denice Winston PA-C [address] [facility] [address], [place], [address], [facility] 07/07/2024 14:01:30 OBGyn Episode No OBEpisode recorded.
[2025-04-28 10:17] LABS: Hematocrit 42.7 % (37.0-47.0); Hemoglobin 14.0 g/dl (12.0-16.0); Mean Corpuscular HGB Conc 32.8 g/dl (31.0-35.0); Mean Corpuscular Hemoglobin 30.4 pg (27.0-33.0); Mean Corpuscular Volume 92.6 fL (80.0-98.0); NRBC Abs Auto 0.000 X10*3/uL (0.0-0.012); NRBC Pct Auto 0.0 /100WBC (0.0-0.2); Platelet Count 346 X10*3/uL (160-400); Red Blood Count 4.61 X10*6/uL (4.20-5.50); White Blood Count 9.1 X10*3/uL (4.8-10.8)
[2025-04-28 10:54] LABS: Anion Gap 11 (12-20); Blood Urea Nitrogen 10 mg/dL (9-16); Calcium 9.2 mg/dL (8.4-10.2); Carbon Dioxide 27 mmol/L (22-29); Chloride 106 mmol/L (96-108); Estimated Glomerular Filt Rate > 60; Potassium 4.1 mmol/L (3.3-5.1); Sodium 140 mmol/L (135-145)
== END 2025-04-28 09:08 | disposition home or self-care (01) ==
LOC: HO.HMGCX 09:07
PROVIDERS: PCP Physician Assistant; Visit Provider Physician Assistant
DX: K57.92 Diverticulitis of intestine, part unspecified, without perforation or abscess without bleeding (principal); J40 Bronchitis, not specified as acute or chronic
CPT/HCPCS: 36415; 71046; 80048; 85027

== ENCOUNTER → 2025-04-28 09:13 | Outpatient (BNV) | payer OTHER, SELFPAY | PROVIDERS: PCP Physician Assistant; Visit Provider Radiology Diagnostic Radiology | DX: J40 Bronchitis, not specified as acute or chronic (principal) | CPT/HCPCS: 71046 ==

== ENCOUNTER 2025-05-29 13:00 | Outpatient (AMB) | payer OTHER, SELFPAY ==
--- OUTSIDE RECORDS SUMMARY | 2025-05-28 23:59 | XMS_ITS | Continuity of Care Document ---
Author Organization [address] [place] [address]- Support Name Relationship Address Phone MOISE, ADIRANO Personal Relationship Unknown Janice vailable MOISE, ADRIANO Personal Relationship Unknown Janice vailable MOISE, ADRIANO Personal Relationship Unknown Janice vailable MOISE, VALERIE Personal Relationship Unknown Unav ailable MOISE, ADRIAON Personal Relationship Unknown Janice vailable MOISE, ADRIANO Personal Relationship Unknown Janice vailable MOISE, ADRIANO Personal Relationship Unknown Janice vailable MOISE, ADRIANO Personal Relationship Unknown Janice vailable MOISE, ADRIANO Personal Relationship Unknown Janice vailable MOISE, ADRIANO Personal Relationship Unknown Janice vailable MOISE, ADRIANO Personal Relationship Unknown Janice vailable MOISE, ADRIANO former spouse Unknown Unavailable MOISE, ADRIANO R Personal Relationship Unknown U navailable MOISE, ADRIANO Personal Relationship Unknown Janice vailable MOISE, ADRIANO Personal Relationship Unknown Janice vailable MOISE, ADRIANO Personal Relationship Unknown Janice vailable MOISE, ADRIANO Personal Relationship Unknown Janice vailable MOISE, SENIA child Unknown Unavailable MIKEY RILEY spouse Unknown Unavailable AMEYA MCPHERSON sibling Unknown Unavailab le Care Team Providers Care Development Scientist Name Role Phone Rudy Pruitt Primary Care Physician [phone] Encounter [facility] Date(s): 04/28/25 - 05/28/[address] [place], [place] [address] Encounter Type: Triage Allergies, Adverse Reactions, Alerts Substance Criticality Severity Reaction Reaction Severity Status dicyclomine severe itching Act raúl tiZANidine unsure of reaction Active Topamax N/V Active Depakote felt like I was in a fog Active Immunizations Given and Recorded Vaccine Date Status Refusal Reason pneumococcal 23-valent vaccine 04/13/14 Given influenza virus vaccine, inactivated 05/24/11 Give n Medications Diclofenac By Mouth, 0 Refills, Maintenance, 10/16/21 11:22:00 AM EDT, Partial fill upon patient request if theprescription is for a schedule II opioid drug. Start Date: 10/16/21 Status: Ordered Medication Dispense Status: Completed Total Allowed Fills: 1 Fills Dispensed: 0 Fioricet with Codeine 50 mg-300 mg-40 mg-30 mg oral capsule 1 capsule, By Mouth, Every 4 hours, PRN Pain , Severe, 0 Refills, Maintenance, 06/20/14 1:31:48 PM EST Start Date: 06/20/14 Status: Ordered Medication Dispense Status: Completed Total Allowed Fills: 1 Fills Dispensed: 0 Flexeril 10 mg oral tablet 1, tablet, By Mouth, 3 times a day, PRN, # 30 tablet, Refills 0, Maintenance, for spasm, 08/21/21 2:58:00 PM EST, Partial fill upon patient request if the prescription is for a schedule II opioid drug. Start Date: 08/21/21 Status: Ordered Medication Dispense Status: Completed Quantity: 30.0 Unit: tablet Total Allowed Fills: 1 Fills Dispensed: 0 gabapentin 300 mg oral capsule 300 mg, 1, capsule, By Mouth, 2 times a day, Refills 0, Maintenance, 08/16/24 3:13:00 PM EST, Partial fill upon patient request if the prescription is for a schedule II opioid drug. Start Date: 08/16/24 Status: Ordered Medication Dispense Status: Completed Total Allowed Fills: 1 Fills Dispensed: 0 MethylPREDNISolone Dose Pack 4 mg oral tablet 0 Refills, Maintenance, 02/21/25 10:12:00 AM EDT, Partial fill upon patient request if the prescription is for a schedule II opioid drug. Start Date: 02/21/25 Status: Ordered Medication Dispense Status: Completed Total Allowed Fills: 1 Fills Dispensed: 0 MiraLax oral powder for reconstitution See Instructions, see colonoscopy prep instructions, # 255 Gm, 0 Refills, Acute 08/17/25 8:00:00 AM EST, 08/16/24 4:48:00 PM EST, [facility] #[id number], Partial fill upon patient request if the prescription is for a schedule II opioid drug., see colonoscopy prep instructions, 158, cm, 08/16/24 15:11:00 EST, Height Start Date: 08/16/24 Stop Date: 08/17/25 Status: Ordered Medication Dispense Status: Completed Quantity: 255.0 Unit: g Total Allowed Fills: 1 Fills Dispensed: 0 Indications: Encounter for other preprocedural examination; Multi Vitamin+ 0 Refills, Maintenance, 11/05/21 12:58:00 PM EDT, Partial fill upon patient request if the prescription is for a schedule II opioid drug. Start Date: 11/05/21 Status: Ordered Medication Dispense Status: Completed Total Allowed Fills: 1 Fills Dispensed: 0 PARoxetine 20 mg oral tablet 20 mg, 1, tablet, By Mouth, Daily, PRN, # 30 tablet, Refills 0, Maintenance, Anxiety, 08/21/21 2:57:00 PM EST, Partial fill upon patient request if the prescription is for a schedule II opioid drug. Start Date: 08/21/21 Status: Ordered Medication Dispense Status: Completed Quantity: 30.0 Unit: tablet Total Allowed Fills: 1 Fills Dispensed: 0 Readi-Cat 2 Smoothie [place] 2% oral suspension See Instructions, as instructed by Radiology, # 2 each, 0 Refills, Maintenance, 08/16/24 4:48:00 PM EST, [facility] #[id number], please favor per patient preference, as instructed by Radiology, 158, cm, 08/16/24 15:11:00 EST, Height Start Date: 08/16/24 Status: Ordered Medication Dispense Status: Completed Quantity: 2.0 Unit: each Total Allowed Fills: 1 Fills Dispensed: 0 Indications: Unspecified abdominal pain; Hemorrhage of anus and rectum; Encounter for other preprocedural examination; Tylenol Caplet 2 TABS, By Mouth, Every 4 hours, 0 Refills, Maintenance, 03/21/21 10:26:00 AM EDT, Partial fill upon patient request if the prescription is for a schedule II opioid drug. 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 Preferred pronoun: She/Her/Hers. 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 ED RN W/OE and Tasks Member Role: Primary Care Nurse Name: Anamaria Hampton SI Position: [facility] Physician - Primary Care Member Role: Primary Care Nurse Care Team Related Persons Name: ADRIANO MOISE Name: SENIA MOISE Name: MIKEY RILEY Name: AMEYA MCPHERSON Insurance Providers Guarantor name: ROXANNA RILEY Health Plan Information #: 1 Payer: [facility] ONE CARE Payer Identifier: NA Member Number: [id number] Group Number: [id number] Subscriber Identifier: NA Relationship to Subscriber: self Coverage Type: Medicare Managed Care (Includes Medicare Advantage Plans) Coverage Verification Date: NA Telecom: NA Address: NA
--- NOTE | 2025-05-29 13:02 | MHC.PC.OV ---
Vital Signs 05/29/25 13:03 Height 5 ft 2 in Weight 171 lb BMI 31.3 BP 118/60 Blood Pressure Location Lt brachial Position Sitting Pulse 95 Pulse Source Pulse Oximeter Temp 97.3 F Temp Source Temporal Artery Scan Pulse Oximetry (%) 94 Oxygen Delivery Method Room Air Intake Visit Reasons: physical Intake Note: Patient is here today for a physical. Java Solutions Architect Required: No Salary Manager: Not Required per policy Accompanied by: Self / Same As Patient Allergies topiramate (From TOPAMAX) Allergy (Mild, Verified 07/06/25 08:12) NAUSEA & VOMITING divalproex sodium (From DEPAKOTE) Adverse Reaction (Unknown, Verified 07/06/25 08:12) NAUSEA & VOMITING Medication List - Last Reconciled 05/29/25 by Rudy Barth PA-C acetaminophen 500 mg PO Q6H PRN 30 days azelastine 1 spray intranasal BID 30 days gniwmjqall-vcvrdtmxte-atb-cod [id number] mg 1 cap PO Q6H PRN 30 days gabapentin 600 mg PO TID 30 days hydroxyzine HCl 25 mg PO TID PRN ibuprofen 400 mg PO Q8H ketoconazole 2% 1 appl topical BID lidocaine 5% (DermacinRx Lidocan) 1 patch topical Q24H PRN 30 days montelukast 10 mg PO DAILY 90 days multivitamin 1 tab PO DAILY paroxetine HCl 20 mg PO DAILY PRN valacyclovir 500 mg PO DAILY Tobacco use date assessed: 05/29/25 Dental Screening Dental Screen Date: 03/16/25 HPI physical HPI Details Patient is a 50-year-old female here today for routine annual physical?.? Patient has a past medical history significant for obesity, tobacco use disorder, fibromyalgia, Migraine disorder,? lumbar spine pain with sciatica, Allergic rhintits. PATIENT REPORTS SHE NOW HAS STABLE HOUSING! Patient reports she will be getting an oophorectomy next month and perhaps needs a preop clearance from her PCP. Patient has no home past medical history significant for CVA, mi or Congestive heart failure. She is not on any anticoagulation or antiplatelet therapy at this time. .. Depression: Patient has lost follow-up with her mental health therapist at [facility]. She is feeling a bit anxious due to upcoming ovarian removal surgery. .. Hyperlipidemia:? Patient currently managing her borderline high cholesterol with lifestyle and dietary modifications. Was on statin therapy though has stopped taking this medication. Unfortunately has not gotten fasting labs done and promises do so before upcoming annual physical .. Tobacco use disorder:? Unfortunately still smoking as isabella has found it very hard to quit smoking.? She has tried nicotine replacement though has not been effective . Colon cancer screening: Has a scheduled colonoscopy at [facility] in August of 2025. Mammogram: Get mammo done at [facility] AGRICULTURAL TECHNICAL OFFICER: planning on getting a Right ovarian removal. Vaccines: Up-to-date with pneumonia, COVID vaccines, Needs FLu vaccine PFS Medical History Sinusitis Delusional disorder Bedbug bite Diarrhea of presumed infectious origin Nicotine dependence, cigarettes, uncomplicated Ankle pain, left Obesity Restless leg syndrome Migraine Anxiety Fibromyalgia Surgical History H/O rectal polypectomy History of surgery History of hernia repair History of wisdom tooth extraction History of tonsillectomy History of umbilical hernia repair H/O LEEP History of colectomy Family History Father CVD (cardiovascular disease) Myocardial infarction Mother Chronic mental illness Dementia Myocardial infarction, Onset Age: 40 Seizure Sister In good health Son In good health Maternal Aunt Breast CA Paternal Aunt Breast CA Other Mental health disorder Social History Household Members: None Household Members Other:: roommate Housing: Other Housing Other:: Hotel. Do you presently have visiting nurse or other home services: No Alcohol intake: never Patient Tobacco Use Status: Current everyday Tobacco user Tobacco use type: Cigarette Cigarette Packs Per Day: 1 Cigarettes Per Day: 15 Years Smoked: (onset 12yo, 1/2-3/4ppd x 38yrs, 25pyh) Packs Per Year: 0 Packs per year/per ci.00 e-Cigarette/Vaping Use: Never Used Second Hand Smoke Exposure: Yes Substance Use Type: Marijuana Advance Directives Date on File: 09/17/22 service: No Current occupational status: disabled Cognitive needs: No Hearing needs: No Vision needs: No Questionnaire Thrive Questionnaire Date Thrive assessed: 03/03/25 SALOMON-7 AMB Questionnaire SALOMON-7 Date SALOMON - 7 assessed: 03/03/25 Source: Developed by Drs. Ayan Curiel, Brooke Alfaro, Reagan Veronica and colleagues, with an educational cornelia from [employer]. Review of Systems Const Denies body aches, Denies chills, Denies excessive sweating, Denies fatigue, Denies fever(s) and Denies headache(s) Eyes Denies blurry vision ENT Denies dysphagia, Denies vertigo, Denies dizziness, Denies headache(s), Denies hearing loss and Denies tinnitus Card Denies chest pain, Denies chest pain with activity, Denies syncope, Denies irregular heart rhythm and Denies dyspnea Resp Denies chest congestion, Denies cough, Denies hemoptysis, Denies dyspnea and Denies wheezing GI Denies abdominal pain, Denies melena, Denies hematochezia, Denies coffee ground emesis, Denies dysphagia, Denies diarrhea, Denies nausea and Denies vomiting Denies urinary frequency, Denies dysuria, Denies urinary hesitancy and Denies urinary urgency Musc Denies arthralgias, Denies limited range of motion, Denies muscle cramps and Denies muscle weakness Skin/Breast Denies rash and Denies skin ulcer Neuro Denies Abnormal speech present, Denies confusion, Denies vertigo, Denies dizziness, Denies syncope, Denies headache(s), Denies memory loss and Denies seizure-like activity Psych Denies anxiety, Denies confusion, Denies depression, Denies memory loss, Denies panic attacks and Denies paranoia Endo Denies excessive sweating, Denies fatigue, Denies flushing, Denies polydipsia and Denies polyuria Aller/Immun Denies wheezing Physical exam (Primary Care) Vital Signs: Last Vital Signs Temp 97.3 F 05/29/25 13:03 Pulse 95 05/29/25 13:03 BP 118/60 05/29/25 13:03 Pulse Ox 94 05/29/25 13:03 Oxygen Delivery Method Room Air 05/29/25 13:03 BMI result Body Mass Index 31.3 Tobacco/Smoking Status: Tobacco use Status Tobacco use date assessed 05/29/25 05/29/25 13:08 Patient Tobacco Use Status Current everyday Tobacco 05/29/25 13:08 Tobacco use type Cigarette 05/29/25 13:08 e-Cigarette/Vaping Use Never Used 05/29/25 13:08 Are you ready to quit: No Tobacco cessation counseling provided: Yes Items discussed: Nicotine replacement Relapse Prevention: discussed the importance of a supportive environment, discussed negative mood or depression after quitting, weight gain after smoking is common and discussed dietary, exercise and/or lifestyle changes Number of minutes spent counselin CPT code: 80693 - 4-10 Minutes Thrive Assessment: Date of Thrive Assessment Date Thrive assessed 03/03/25 05/29/25 13:08 Const Other: OBESe General: cooperative, comfortable, no acute distress, alert and awake; No confusion Orientation/consciousness: oriented to person, oriented to place, patient oriented x3 and No confusion HENMT Head: Yes normocephalic Ears: external ears normal and TM's normal bilaterally Face and sinus: No sinus tenderness Mouth: Normal oral and palatal mucosa present and tongue normal Teeth and gingiva: dentition normal and gingiva normal Throat: Yes posterior oropharynx normal, Yes tonsils normal and Yes uvula midline Eyes Conjunctivae: conjunctivae normal Sclerae: sclerae normal Pupils: Equal, round and reactive pupils present EOM: EOMs intact bilaterally Direct Ophthalmoscopy: No no photophobia Neck Neck: Yes no lymphadenopathy, No tender and Yes no JVD Thyroid: Thyroid normal Carotids: no bruits Chest Chest palpation & inspection: no tenderness Resp Effort & Inspection: normal respiratory effort, no audible wheezes, not labored and no stridor Auscultation: no crackles, no rales, no rhonchi and no wheezes Cardio Jugular venous distension: no JVD Rate: regular rate, not bradycardic and not tachycardic Rhythm: regular rhythm Bruits: no carotid bruits Peripheral pulses: Peripheral pulses 2+ throughout GI Inspection: Yes normal to inspection, No abdominal wall ecchymosis and No visible herniation Palpation (GI): Soft to palpation, nontender, no guarding, not rigid and No hepatosplenomegaly present Auscultation: normoactive bowel sounds General: Yes no CVA tenderness Back/Spine/Pelvis Back: no CVA tenderness and No back tenderness Cervical Spine: cervical ROM normal Thoracic/Lumbar Spine: thoracic and lumbar spine normal to inspection, straight leg raise negative bilaterally, No thoraco-lumbar ROM limited and No lumbar spinal tenderness Skin Lesions: no lesions Rashes: no rashes Wounds: no wounds Neuro General: oriented to person, oriented to place, patient oriented x3, CN's II-XI intact bilaterally and No confusion Cranial nerves: Yes Equal, round and reactive pupils present and Yes Normal accommodation reflex present Cognition (Neuro): normal cognition Speech: No Abnormal speech present Gait exam (Neuro): Normal gait present Motor exam (neuro): 5/5 motor strength present throughout Extrem Right upper extremity: full ROM; no cyanosis Left upper extremity: full ROM; no cyanosis Right lower extremity: no edema Left lower extremity: no edema Psych Appearance: grossly normal Mental Status: mental status grossly normal Affect: normal affect Attitude: cooperative Thought process: Normal thought process present Coding Level of Care Code Est Pt Prev Care 40-64y(78052) Diagnoses Annual physical exam Z00.00 Tobacco dependence F17.200 Mixed hyperlipidemia E78.2 Hyperlipidemia type: mixed hyperlipidemia Right ovarian cyst N83.201 Pre-op evaluation Z01.818 Intractable low back pain M54.59 Additional Codes Vital Signs *Quality* - CPT code: 76448 - 4-10 Minutes ([id number]) Assessment & Plan Assessment & Plan (1) Annual physical exam: Code(s): Z00.00 - Encounter for general adult medical examination without abnormal findings Category: Medical Plan: as per HPI (2) Tobacco dependence: Code(s): F17.200 - Nicotine dependence, unspecified, uncomplicated Category: Medical Plan: Patient does understand she needs to quit smoking though has found it very difficult to do so. She has nicotine replacement available to her and will use when ready. (3) HLD (hyperlipidemia): Code(s): E78.5 - Hyperlipidemia, unspecified Category: Medical Qualifiers: Hyperlipidemia type: mixed hyperlipidemia Qualified Code(s): E78.2 - Mixed hyperlipidemia Plan: Patient does have a history of elevated cholesterol. Will recheck her lipid panel and consider starting low-dose statin therapy to reduce her cardiovascular risk. Goal LDL to be below 130 (4) Right ovarian cyst: Code(s): N83.201 - Unspecified ovarian cyst, right side Category: Medical Plan: Patient is due for a right ovarian removal [facility]. (5) Pre-op evaluation: Code(s): Z01.818 - Encounter for other preprocedural examination Category: Medical Plan: Patient has a low CV risk general anesthesia. Recent labs and EKG normal. Patient medically clear for needed surgery under general anesthesia (6) Intractable low back pain: Code(s): M54.59 - Other low back pain Category: Medical Plan: Patient continues to have lower back pain. She attributes this to her pelvic ovarian cyst. Orders: Orders Lipid Panel 05/29/25 E78.2 - Mixed hyperlipidemia Complete Blood Count no Diff 05/29/25 E78.2 - Mixed hyperlipidemia Comprehensive [place]. Panel Fast 05/29/25 E78.2 - Mixed hyperlipidemia ECG 12 lead EKG 05/29/25 Z01.818 - Encounter for other preprocedural examination Medications: New prednisone take 3 tabs x 3 days , take 2 tabs x 3 days , take 1 tab x 3 days 10 mg PO DIRECTED 18 tabs 0RF 9 days M54.31 - Sciatica, right side, M54.32 - Sciatica, left side
[2025-05-29 13:03] VITALS: BP 118/60; PULSE 95; TEMP 36.3; O2SAT 94; BMI 31.3
== END 2025-05-29 13:47 | disposition home or self-care (01) ==
LOC: HO.HMCH 13:00
PROVIDERS: PCP Physician Assistant; Visit Provider Physician Assistant
DX: Z00.00 Encounter for general adult medical examination without abnormal findings (principal); F17.200 Nicotine dependence, unspecified, uncomplicated; E78.2 Mixed hyperlipidemia; N83.201 Unspecified ovarian cyst, right side; Z01.818 Encounter for other preprocedural examination; M54.59 Other low back pain

== ENCOUNTER → 2025-05-29 13:00 | Outpatient (BNVA) | payer OTHER, SELFPAY | PROVIDERS: PCP Physician Assistant; Visit Provider Physician Assistant | DX: Z00.00 Encounter for general adult medical examination without abnormal findings (principal); Z01.818 Encounter for other preprocedural examination; E78.2 Mixed hyperlipidemia; M54.59 Other low back pain; N83.201 Unspecified ovarian cyst, right side; F17.210 Nicotine dependence, cigarettes, uncomplicated | CPT/HCPCS: 99396 ==

== ENCOUNTER 2025-06-13 15:41 | Outpatient (REF) | payer OTHER, SELFPAY ==
--- OUTSIDE RECORDS SUMMARY | 2025-06-08 23:59 | XMS_ITS | Continuity of Care Document ---
Author Organization [facility] Address [address] [place] [address], [address] [place] [address] [facility] [phone] Support Name Relationship Address Phone MOISE, ADRIANO Personal Relationship Unknown Janice vailable MOISE, ADRIANO Personal Relationship Unknown Janice vailable MOISE, ADRIANO Personal Relationship Unknown Janice vailable MOISE, VALERIE Personal Relationship Unknown Unav ailable MOISE, ADRIANO Personal Relationship Unknown Janice vailable [...] Unknown Unavailab le Care Team Providers Care Executive Secretary Name Role Phone Rudy Pruitt Primary Care Physician [phone] [facility]counter [facility] Date(s): 05/09/25 - 06/08/25 [facility] [address] [address] Encounter Type: Triage Allergies, Adverse Reactions, Alerts [...] 8:00:00 AM EST, 08/16/24 4:48:00 PM EST, [facility] #[id number], Partial fill upon patient request if the [...] 1 Fills Dispensed: 0 Readi-Cat 2 Smoothie [place] 2% oral suspension See Instructions, as instructed by Radiology, # 2 each, 0 Refills, Maintenance, 08/16/24 4:48:00 PM EST, [facility] #[id number], please favor per patient preference, as instructed [...] Position: Reference Physician Member Role: PCP Address: [address] [place] [address] [address] [place], [place] [address] Telecom: Name: Kallie Ruiz RN Position: [facility] Hospital Turn Laster Member Role: Primary Care Nurse Name: Rebeca Zacarias RN Position: [facility] ED RN W/OE and Tasks Member Role: Primary Care Nurse Name: Anamaria Hampton SI Position: [facility] Material Reclaimer Member Role: Primary Care Nurse Care Team Related Persons Name: ADRIANO MOISE Name: SENIA MOISE Name: MIKEY RILEY Name: AMEYA MCPHERSON Insurance Providers Guarantor name: ROXANNA RILEY Health Plan Information #: 1 Payer: [facility] C[facility] Payer Identifier: NA Member Number: [id number] Group Number: [id number] Subscriber Identifier: NA Relationship to Subscriber: self Coverage Type: Medicare Managed Care (Includes Medicare Advantage Plans) Coverage Verification Date: NA Telecom: NA Address:
--- OUTSIDE RECORDS SUMMARY | 2025-06-09 23:59 | XMS_ITS | Continuity of Care Document ---
Author Organization [address] [place] [address]- Support Name Relationship Address Phone MOISE, ADRIANO [...] Unknown Unavailab le Care Team Providers Care General Assistant Name Role Phone Rudy Pruitt Primary Care Physician [phone] Encounter [facility] Date(s): 05/10/25 - 06/09/[address] [place], [place] [address] Encounter Type: Triage Allergies, Adverse Reactions, Alerts [...] 8:00:00 AM EST, 08/16/24 4:48:00 PM EST, [facility] #[id number], Partial fill upon patient request if the [...] 1 Fills Dispensed: 0 Readi-Cat 2 Smoothie [place] 2% oral suspension See Instructions, as instructed by Radiology, # 2 each, 0 Refills, Maintenance, 08/16/24 4:48:00 PM EST, [facility] #[id number], please favor per patient preference, as instructed [...] Position: Reference Physician Member Role: PCP Address: [address] [place] [address] [address] [place], [place] [address] Telecom: Name: Parent RNKallie Position: [facility] Hospital Car Stower Member Role: Primary Care Nurse Name: Rebeca Zacarias RN Position: [facility] ED RN W/OE and Tasks Member Role: Primary Care Nurse Name: Anamaria Hampton SI Position: [facility] SN Admissions Recruiter Member Role: Primary Care Nurse Care Team Related Persons Name: ADRIANO MOISE Name: SENIA MOISE Name: MIKEY RILEY Name: AMEYA MCPHERSON Insurance Providers Guarantor name: ROXANNA BERMUDEZON Health Plan Information #: 1 Payer: [facility] CARE Payer Identifier: NA Member Number: [id number] Group Number: [id number] Subscriber Identifier: NA Relationship to Subscriber: self Coverage Type: Medicare Managed Care (Includes Medicare Advantage Plans) Coverage Verification Date: TAYLOR Telecom: NA Address:
--- OUTSIDE RECORDS SUMMARY | 2025-06-11 23:59 | XMS_ITS | Continuity of Care Document ---
Author Organization [facility] Address [address] [place] [address], [address] [place] [address] [facility] [phone] Support Name Relationship Address Phone MOISE, ADRIANO [...] Unknown Unavailab le Care Team Providers Care Shoe Worker Name Role Phone Rudy Pruitt Primary Care Physician Encounter [facility] Date(s): 05/12/25 - 06/11/25 [facility] [address] [address] Encounter Type: Triage Allergies, Adverse Reactions, [...] 8:00:00 AM EST, 08/16/24 4:48:00 PM EST, [facility] #[id number], Partial fill upon patient request if the [...] 1 Fills Dispensed: 0 Readi-Cat 2 Smoothie [place] 2% oral suspension See Instructions, as instructed by Radiology, # 2 each, 0 Refills, Maintenance, 08/16/24 4:48:00 PM EST, [facility] #[id number], please favor per patient preference, as instructed [...] Position: Reference Physician Member Role: PCP Address: [address] [place] [address] [address] [place], [place] [address] Telecom: Name: Kallie Ruiz RN Position: [facility] Hospital Spinning Frame Fixer Member Role: Primary Care Nurse Name: Rebeca Zacarias RN Position: [facility] ED RN W/OE and Tasks Member Role: Primary Care Nurse Name: Anaamria Hampton SI Position: [facility] SN Display And Banner Designer Member Role: Primary Care Nurse Care Team Related Persons Name: ADRIANO MOISE Name: SENIA MOISE Name: MIKEY RILEY Name: AMEYA MCPHERSON Insurance Providers Guarantor name: ROXANNA RILEY Health Plan Information #: 1 Payer: [facility] C[facility] Payer Identifier: NA Member Number: [id number] Group Number: [id number] Subscriber Identifier: NA Relationship to Subscriber: self Coverage Type: Medicare Managed Care (Includes Medicare Advantage Plans) Coverage Verification Date: NA Telecom: NA Address: NA
--- NOTE | ~2025-06-13 | CT_ITS ---
EXAMINATION: CT LUNG SCREENING FOLLOW UP WITHOUT IV CONTRAST HISTORY: F17.210 - Nicotine dependence, cigarettes, uncomplicated TECHNIQUE: Low dose axial images were obtained from the sternal notch to upper abdomen without IV contrast per standard departmental protocol. Sagittal and coronal reformatted images were also obtained and reviewed. One or more of the following techniques was used for dose reduction: Automated exposure control, adjustment of the mA and/or kV according to patient size, use of iterative reconstruction technique. DLP: 44 mGy-cm COMPARISON: Comparison is made with the prior examination dated 02/03/2025. FINDINGS: Lung nodules: Again seen are left lower lobe nodules. The previously seen 7 x 3 mm nodule now measures 5 mm (series 5, image 94). The previously seen 8 x 5 mm nodule now measures 7 x 4 mm but appears less solid (series 5, image 95). A 10 x 5 mm nodule also appears less solid (series 5, image 102). There is additional subsegmental atelectasis in the left lower lobe. No new pulmonary nodules are identified. Emphysema: mild Coronary Calcification: none Aortic Arch Calcification: mild Potentially Significant Incidentals : none Additional Chest Findings: There is no pleural or pericardial effusion. No mediastinal or axillary lymphadenopathy is identified. Visualized upper abdomen: The visualized portions of the liver, spleen, and adrenals have an unremarkable unenhanced appearance. CT/CT lung screen follow up IMPRESSION: The previously seen left lower lobe nodules are smaller in size or less solid-appearing than on the prior study. Continued annual low-dose screening chest CT is recommended. LUNG-RADS ASSESSMENT: Lung-RADS 2: Benign MANAGEMENT: Continue annual screening with LDCT in 12 months Category S: N/A Electronically signed by: Ayan Ackerman MD 06/14/2025 07:09 AM [facility]
--- OUTSIDE RECORDS SUMMARY | 2025-06-13 19:10 | XMS_ITS | Patient Health Record ---
Author Organization [facility] Address [address] [place] [address] Care Team Providers Care Recycling Operations Manager Name Role Phone SHANITA JONES Primary [...] Risk Notes Problem Lumbosacral spondylosis without myelopathy ([id number]) Spondylosis without myelopathy or radiculopathy, lumbar region (M47.816) Active confirmed Plan Of Treatment No Information Insurance Providers Payer Name Payer Address Payer Phone Subscriber Number Group Number Insured Name Patient Relationship to Insured Coverage Start Date Coverage End Date Medicare B [facility] [address] [place] [id number] [phone] [id number] ROXANNA RILEY Self - patient is the insured [employer] Medicaid of [place] [address] [place] [phone] [id number] ROXANNA RILEY Self - patient is the [...]
== END 2025-06-13 15:42 | disposition home or self-care (01) ==
LOC: HO.CT 15:41
PROVIDERS: PCP Physician Assistant; Visit Provider Physician Assistant Medical
DX: R91.8 Other nonspecific abnormal finding of lung field (principal); F17.210 Nicotine dependence, cigarettes, uncomplicated
CPT/HCPCS: 71250

== ENCOUNTER → 2025-06-13 15:44 | Outpatient (BNV) | payer OTHER, SELFPAY | PROVIDERS: PCP Physician Assistant; Visit Provider Radiology Diagnostic Radiology | DX: Z12.2 Encounter for screening for malignant neoplasm of respiratory organs (principal); Z87.891 Personal history of nicotine dependence | CPT/HCPCS: 71250 ==

== ENCOUNTER 2025-07-06 08:10 | Outpatient (AMB) | payer OTHER, SELFPAY ==
--- NOTE | 2025-07-06 08:12 | A.OFFPC_ITS ---
Vital Signs 07/06/25 08:13 Height 5 ft 2 in Weight 174 lb 6 oz BMI 31.9 BP 104/76 Blood Pressure Location Lt brachial Position Sitting Respiration 18 Pulse 83 Pulse Source Pulse Oximeter Temp 97.7 F Temp Source Temporal Artery Scan Pulse Oximetry (%) 97 Oxygen Delivery Method Room Air Intake Visit Reasons: follow up Senior Quality Methods Specialist Required: No Accompanied by: Self / Same As Patient Allergies topiramate (From TOPAMAX) Allergy (Mild, Verified 07/06/25 08:12) NAUSEA & VOMITING divalproex sodium (From DEPAKOTE) Adverse Reaction (Unknown, Verified 07/06/25 08:12) NAUSEA & VOMITING Tobacco use date assessed: 05/29/25 Dental Screening Dental Screen Date: 03/16/25 HPI HPI Comments History of Present Illness Details History of Present Illness - The patient is a 50 year old female pr esenting for a postoperative follow-up visit. Sane rafaela visit - She underwent surgery last Thursday for a 7 cm cyst on her right ovary, which involved the removal of the cyst, the right fallopian tube, and the left fallopian tube, while preserving the left ovary. - A second surgeon also removed scar tis felisa from a mesh netting and untangled her intestines from it without performing work on the intestines themselves. - Four days post-surgery, on Thursday, t he patient experienced black stool, which she has a history of from over seven months ago, at which time blood was found. - The [facility] surgeon reportedly stated that her procedure should not cause such issues. - Also on Thursday, she experienced itch ing under her surgical bandages and was instructed by the surgeon's office to remove them. - Upon removing the bandages, she observ ed exposed flesh without bleeding, and the area is now starting to scab over. - The surgeon's office advised her to fo llow up with her primary care provider for evaluation. Social History Results [facility] Medical History Sinusitis Delusional disorder Bedbug bite Diarrhea of presumed infectious origin Nicotine dependence, cigarettes, uncomplicated Ankle pain, left Obesity Restless leg syndrome Migraine Anxiety Fibromyalgia Surgical History H/O rectal polypectomy History of surgery History of hernia repair History of wisdom tooth extraction History of tonsillectomy History of umbilical hernia repair H/O LEEP History of colectomy Family History Father CVD (cardiovascular disease) Myocardial infarction Mother Chronic mental illness Dementia Myocardial infarction, Onset Age: 40 Seizure Sister In good health Son In good health Maternal Aunt Breast CA Paternal Aunt Breast CA Other Mental health disorder Social History Household Members: None Household Members Other:: roommate Housing: Other Housing Other:: Hotel. Do you presently have visiting nurse or other home services: No Alcohol intake: never Patient Tobacco Use Status: Current everyday Tobacco user Tobacco use type: Cigarette Cigarette Packs Per Day: 1 Cigarettes Per Day: 15 Years Smoked: (onset 12yo, 1/2-3/4ppd x 37yrs, 25pyh) e-Cigarette/Vaping Use: Never Used Second Hand Smoke Exposure: Yes Substance Use Type: Marijuana Advance Directives Date on File: 09/17/22 service: No Current occupational status: disabled Cognitive needs: No Hearing needs: No Vision needs: No Questionnaire PHQ-9 Over the last 2 weeks, how often have you been bothered by any of the following problems? 1. Little interest or pleasure in doing things: nearly every day 2. Feeling down, depressed, or hopeless: several days 3. Trouble falling or staying asleep, or sleeping too much: not at all 4. Feeling tired or having little energy: several days 5. Poor appetite or overeating: nearly every day 6. Feeling bad about yourself - or that you are a failure or have let yourself or your family down: not at all 7. Trouble concentrating on things, such as reading the newspaper or watching television: not at all 8. Moving or speaking so slowly that other people could have noticed. Or the opp osite - being so fidgety or restless that you have been moving around a lot more than usual: not at all 9. Thoughts that you would be better off or of hurting yourself in some way: not at all Total score: 8 Source: Developed by Drs. Ayan Curiel, Brooke BReagan Pereira and colleagues, with an educational cornelia from [employer]. Thrive Questionnaire Date Thrive assessed: 03/03/25 I am a: Patient What is your living situation today?: I have a steady place to live Within the past 12 months, did the food you bought not last and you didn't have the money to get more?: Sometimes True Within the past 12 months, did you worry whether your food would run out before you got money to buy more?: Sometimes True Do you have trouble paying for medicines?: No Do you have trouble getting transportation to medical appointments?: No Do you have trouble paying your heating and electricity bill?: No Do you have trouble taking care of your child, family member or friend?: No Do you have trouble with day-to-day activities such as bathing, preparing meals, shopping, managing finances, etc.?: No Are you currently unemployed and looking for a job?: No Are you interested in more education?: No Please select the resources that you would like help with: None Currently or been in a relationship where the following occur: I choose not to answer THRIVE Score: 2 AUDIT C Alcohol Use Questionnaire (AUDIT-C) 1. How often do you have a drink containing alcohol?: Never 3. How often do you have six or more drinks on one occasion?: Never Total Score: 0 SALOMON-7 AMB Questionnaire SALOMON-7 Date SALOMON - 7 assessed: 03/03/25 Feeling nervous, anxious, or on edge: 1 = Several days Not being able to stop or control worryin = Not at all Worrying too much about different things: 0 = Not at all Trouble relaxin = Not at all Being so restless that it is hard to sit still: 0 = Not at all Becoming easily annoyed or irritable: 0 = Not at all Feeling afraid as if something awful might happen: 0 = Not at all Total SALOMON-7 score (0-4 normal; 5-9 mild; 10-14 moderate; 15-21 severe): 1 Source: Developed by Drs. Ayan Curiel, Reagan Ramirez and colleagues, with an educational cornelia from [employer]. Review of Systems Narrative Review of Systems - Gastrointestinal: Reports an episode of black stool four days post-surgery, which then turned green the following day. - Integumentary: Reports pruritus under surgical bandages post-operatively. Physical exam (Primary Care) Vital Signs: Last Vital Signs Temp 97.7 F 07/06/25 08:13 Pulse 83 07/06/25 08:13 Resp 18 07/06/25 08:13 BP 104/76 07/06/25 08:13 Pulse Ox 97 07/06/25 08:13 Oxygen Delivery Method Room Air 07/06/25 08:13 BMI result Body Mass Index 31.9 Tobacco/Smoking Status: Tobacco use Status Tobacco use date assessed 05/29/25 07/06/25 08:15 Patient Tobacco Use Status Current everyday Tobacco 07/06/25 08:15 Tobacco use type Cigarette 07/06/25 08:15 e-Cigarette/Vaping Use Never Used 07/06/25 08:15 PHQ-9: PHQ-9 Score PHQ-9: Total score 8 07/06/25 08:15 Thrive Assessment: Date of Thrive Assessment Date Thrive assessed 03/03/25 07/06/25 08:15 Currently or been in a relationship where the following occur: I choose not to answer Narrative Physical Exam General: Cooperative and healthy appearing Nutritional Appearance: Well nourished Orientation/consciousness: Patient oriented x3 Limitations: No limitations Head: Normal to inspection General: Appearance normal, both eyes and all related structures Neck: Normal visual inspection Chest: Normal palpation of entire chest wall Respiratory: Normal respiratory effort Neurology: Patient oriented x3 Abdomen: Multiple healing laproscopic scars. Coding Level of Care Code Est Pt Level 4 (79785) Add On Problem Visit Only Diagnoses Wound check, abscess Z51.89 Assessment & Plan Assessment & Plan (1) Wound check, abscess: Code(s): Z51.89 - Encounter for other specified aftercare Plan Plan - Plan to perform a wound examination with the assistance of a nurse to assess the surgical site. - The patient was educated on potential causes for stool color changes, such as iron supplements or green vegetables. Discussion Notes I discussed with the patient that I will get a nurse to assist in examining her surgical wound. I also explained that stool color can be affected by dietary factors like green vegetables or supplements such as iron. She is here for evaluation at the direction of her surgeon's office. Patient Instructions - We will perform an examination of your surgical wound today. - Be aware that certain things like iron pills or green vegetables can make your stool look black or green.
[2025-07-06 08:13] VITALS: BP 104/76; PULSE 83; RESP 18; TEMP 36.5; O2SAT 97; BMI 31.9
== END 2025-07-06 08:41 | disposition home or self-care (01) ==
LOC: HO.HMCH 08:11
PROVIDERS: PCP Physician Assistant; Visit Provider Internal Medicine
DX: Z51.89 Encounter for other specified aftercare (principal)

== ENCOUNTER → 2025-07-06 08:10 | Outpatient (BNVA) | payer OTHER, SELFPAY | PROVIDERS: PCP Physician Assistant; Visit Provider Internal Medicine | DX: Z48.816 Encounter for surgical aftercare following surgery on the genitourinary system (principal); Z87.42 Personal history of other diseases of the female genital tract | CPT/HCPCS: 96127; 99212 ==